=== PATIENT | female | born 1945 | race Caucasian/White ===

== ENCOUNTER 2019-05-04 19:20 | Emergency (ER) | payer MEDICARE, OTHER, SELFPAY ==
[2019-05-04 19:21] VITALS: BP 190/84; PULSE 80; RESP 16; TEMP 37.1; O2SAT 93; BMI 24.6
[2019-05-04] MEDS: HYDROcodone Bitartrate/Apap 5/325 Tablet PO (22:01)
--- NOTE | 2019-05-04 23:53 | ED.DEP ---
ED Disposition - Plan for ED Patient: Instructions: Nosebleed Prescriptions: Cephalexin [Keflex] 500 mg PO Q12 #14 capsule Referrals: Mynor Shaver MD [Primary Care Provider] - Robb Escobar MD [STAFF PHYSICIAN] -
--- NOTE | 2019-05-04 23:56 | ED.DCSUM_ITS ---
- ER Visit Summary Date of Service: 05/04/19 Chief Complaint: Nosebleed History of Present Illness: The patient is a 74 F presenting with nosebleed. She states this started approximately one hour prior to arrival. She had bleeding initially started from the right side of her nose and is now bleeding from both. She denies trauma. She is not on anticoagulants. Denies other complaints. Physical Examination: Vitals are stable. Blood pressure 190/84. Patient is afebrile. Alert no acute distress. HEENT exam bleeding bilateral nares Neck is supple. Lungs are clear and equal bilaterally. Heart is regular rate and rhythm. Extremities are unremarkable. Skin is warm and dry. No focal neurologic deficit. Remainder of exam is unremarkable. Emergency Department Course and Treatment: Direct pressure was applied. Patient continues to have bleeding. Thrombin spray was used and the bleeding did slow down. Discussed with Dr. Canchola. Her nose was packed with bilateral merocels. She was observed in the ED. The bleeding has now stopped. She is advised to follow-up with Dr. Canchola. She is given prescription for Keflex. Advised return to the ED for worsening complaints. Disposition: Discharge home Impression: Epistaxis, nasal packing This note was generated with [employer] dictation software. It may contain incorrect words, spelling, and punctuation that were not noted in review of the chart prior to signing ED Disposition - Plan for ED Patient: Instructions: Nosebleed Prescriptions: Cephalexin [Keflex] 500 mg PO Q12 #14 cap Prescription Printed Referrals: Robb Escobar MD [STAFF PHYSICIAN] - Mynor Shaver MD [Primary Care Provider] -
--- NOTE | 2019-05-05 00:07 | ED.RN ---
PT STATES SHE DOESN'T WANT TO TAKE ANTIBIOTIC TONIGHT D/T NOT EATING ALL DAY. RN OFFERED SNACK WITH PILL. PT STATES SHE WILL START TOMORROW WHEN SHE GETS PRESCRIPTION FILLED.
--- NOTE | 2019-05-05 06:15 | ED.RN ---
OPENED CHART PER REQUEST OF CAMILLE ESCALANTE TO CONFIRM THEIR RECORD
== END 2019-05-05 00:08 | disposition home or self-care (01) ==
PROVIDERS: Emergency Provider Emergency Medicine; Family Provider Family Medicine; PCP Family Medicine
DX: R04.0 Epistaxis (principal); K21.9 Gastro-esophageal reflux disease without esophagitis; E11.9 Type 2 diabetes mellitus without complications; I10 Essential (primary) hypertension; Z79.84 Long term (current) use of oral hypoglycemic drugs; Z79.899 Other long term (current) drug therapy
CPT/HCPCS: 30901; 99285

== ENCOUNTER 2023-10-22 11:46 | Inpatient (IN) | payer MEDICARE, SELFPAY ==
[2023-10-22] VITALS (14 sets, daily range): BP systolic 92–201; BP diastolic 45–80; PULSE 69–96; RESP 16–24; TEMP 36.4–36.8; O2SAT 88–100; BMI 28.3
--- NOTE | 2023-10-22 12:20 | EKG12_ITS ---
Test Reason : Blood Pressure : / mmHG Vent. Rate : 082 BPM Atrial Rate : 082 BPM P-R Int : 160 ms QRS Dur : 068 ms QT Int : 358 ms P-R-T Axes : 036 -30 071 degrees QTc Int : 418 ms Sinus rhythm with Premature supraventricular complexes Left axis deviation Abnormal ECG Confirmed by LEEROY CAGLE, RHONDA ([id number]), editor city [place] ([id number]) on 10/25/2023 6:50:21 AM Referred By: SRIRAM Confirmed By:RHONDA UMAÑA MD
--- NOTE | 2023-10-22 12:28 | EX.ED.DYSGE1 ---
HPI History of Present Illness Chief Complaint: Weakness Informant: patient Narrative Narrative: Patient presents via EMS secondary to inability to walk. She is a history of myasthenia gravis and has caretakers. She states since June she has had increasing weakness and had discussed with her primary care physician possible need for hospitalization and therapy. She has now been unable to walk since 10 October and this finally prompted her visit. [facility] Medical History (Updated 10/22/23 @ 17:[address] Vanessa Ramsey MD) Anxiety and depression Hx of gastroesophageal reflux (GERD) Fibromyalgia Diabetes mellitus Myasthenia gravis Hx pulmonary embolism Home Medications ?Medication ?Instructions ?Recorded ?Last Taken ?Type hydrocodone-acetaminophen 5-325mg 1 ea PO PRN PRN Pain Or Fever 05/04/19 Unknown History 5mg-325mg lisinopril 20 mg tablet 20 mg PO DAILY 05/04/19 Unknown History loratadine 5 mg-pseudoephedrine ER 1 ea PO BID 05/04/19 Unknown History 120 mg tablet,extended release,12hr montelukast 10 mg tablet 10 mg PO DAILY 05/04/19 Unknown History sertraline 100 mg tablet 100 mg PO DAILY 05/04/19 Unknown History albuterol sulfate 90 mcg/actuation 2 puff inhalation Q4H PRN 10/22/23 Unknown History aerosol inhaler budesonide-formoterol HFA 80 2 puff inhalation BID 10/22/23 Unknown History mcg-4.5 mcg/actuation aerosol inhaler estradiol 0.5 mg tablet 0.5 mg PO DAILY 10/22/23 Unknown History omeprazole 20 mg capsule,delayed 20 mg PO BID 10/22/23 Unknown History release pyridostigmine bromide 60 mg tablet 60 mg PO TID PRN 10/22/23 Unknown History sumatriptan succinate 100 mg tablet 100 mg PO PRN 10/22/23 Unknown History Allergy/AdvReac Type Severity Reaction Status Date / Time Beta-Blockers Allergy Severe Other Verified 10/22/23 12:02 (Beta-Adrenergic Bloc Horse/Equine Containing AdvReac NEEDS Verified 10/22/23 12:00 Products FOLLOW-UP Sugars, Metabolically Active AdvReac Unknown Verified 10/22/23 12:00 Surgical History Hx of thymectomy Social History Smoking Status: Former smoker ROS ROS ED Constitutional Constitutional ED: Denies chills or fever(s) Eyes Eyes: Denies discharge from eye(s) ENT ENT ED: Denies discharge from eye(s), rhinorrhea or sore throat Cardiovascular Cardiovascular: Denies chest pain or palpitations Respiratory/Chest Respiratory/Chest: Denies cough or dyspnea Gastrointestinal Gastrointestinal: Reports diarrhea; Denies abdominal pain, nausea or vomiting Genitourinary Genitourinary ED: Denies dysuria Musculoskeletal Musculoskeletal: Denies back pain or extremity pain Integumentary Denies Abrasions or rash Neurologic Neurologic: Reports weakness; Denies headache(s) Psychiatric Psychiatric: Denies anxiety or depression Allergic/Immunologic Allergic/Immunologic ED: Denies lip swelling or urticaria EXAM Physical Exam Const Vital Signs: 10/22/23 11:47 10/22/23 12:02 10/22/23 13:00 Temperature 98.0 F Temperature Source Oral Pulse Rate 89 Respiratory Rate 16 Respiratory Effort Normal Non-Labored Respiratory Pattern Normal Blood Pressure 201/78 H 198/77 H Blood Pressure Mean 119 117 Pulse Ox 97 Oxygen Delivery Method Room Air 10/22/23 13:00 10/22/23 13:21 10/22/23 15:00 Temperature Temperature Source Pulse Rate 81 72 Respiratory Rate 18 17 Respiratory Effort Respiratory Pattern Blood Pressure 193/67 H 169/53 H 127/54 H Blood Pressure Mean 109 91 78 Pulse Ox 96 97 Oxygen Delivery Method Room Air Room Air Positive well nourished and well developed General Appearance ED: well developed HEENT Reports moist mucous membranes Eyes EOMs intact bilaterally Chest Wall inspection of chest normal and palpation of chest normal Resp normal respiratory effort and clear to auscultation bilaterally Cardio regular rate and regular rhythm GI non-tender Palpation: soft Neuro oriented x3 Neuro Narrative: Bilateral lower extremity weakness. Is able to wiggle toes and rotate her legs [id number]. Normal sensation noted. Psych mental status grossly normal Skin no rashes or lesions noted MDM MDM MDM Narrative Medical decision making narrative: Patient was on manager telecom. Noted to be significantly hypertensive in the emergency room. I did review her prior records from [facility] and her blood pressure is usually around 130/80. She states she did take her lisinopril this morning. We will check blood pressures in each arm. If remains elevated she will be given a dose of hydralazine. Labwork obtained to evaluate for leukocytosis, anemia, and electrolyte derangement. Urinalysis obtained to evaluate for infection/hematuria. History & Record Review Discussion w/independent historian: Patient and Friend Lab Data Attestation: I reviewed the patient's lab results. Labs: Laboratory Results - last 24 hr 10/22/23 10/22/23 13:00 15:57 WBC 15.6 H RBC 4.72 Hgb 13.1 Hct 41.6 MCV 88.1 MCH 27.8 MCHC 31.5 L RDW Std Deviation 44.8 H RDW Coeff of Meir 13.8 Plt Count 400 MPV 10.7 Immature Gran % (Auto) 0.300 Neut % (Auto) 81.7 H Lymph % (Auto) 10.2 L Garza % (Auto) 6.1 Eos % (Auto) 1.3 Baso % (Auto) 0.4 Absolute Neuts (auto) 12.8 H Absolute Lymphs (auto) 1.59 Nucleated RBC % 0 Sodium 138 Potassium 3.8 Chloride 107 Carbon Dioxide 26.0 Anion Gap 5 BUN 21 H Creatinine 0.71 Estim Creat Clear Calc 57.11 Est GFR (MDRD) Af Amer 103 Est GFR (MDRD) Non-Af 85 BUN/Creatinine Ratio 29.6 H Glucose 117 H Calcium 9.8 Urine Color Yellow Urine Clarity Clear Urine pH 6.5 Ur Specific [place] 1.010 Urine Protein Negative Urine Glucose (UA) Normal Urine Ketones 5 H Urine Occult Blood 150 H Urine Nitrite Positive H Urine Bilirubin Negative Urine Urobilinogen 4 H Ur Leukocyte Esterase 100 H Urine RBC 10-25 SEEN Urine WBC 5-10 SEEN Ur Squamous Epith Cells 0-5 SEEN Urine Bacteria 2+ Urine Mucus 0 SEEN Treatment and Re-Evaluation :: CBC was elevated white count at 15.6 with 81% neutrophils. Hemoglobin is 13.1. Chemistry studies unremarkable with normal renal function. Glucose is 117. Urinalysis was obtained via straight cath. She has 2+ bacteria, 10-25 RBCs, 5-10 white cells, and positive nitrites. This will be sent for culture and patient be given a dose of Rocephin here. Patient's blood pressure was checked in both arms and significantly elevated. She received 10 mg of IV hydralazine. Repeat blood pressures are in the 120s systolic. I will speak with hospitalist regarding admission as patient is not able to walk and assist in her care. She does understand that she will require placement for therapy and strengthening. Discharge Plan Triage Chief Complaint: Weakness ED Provider: Vanessa Ramsey Dx/Rx/DC Orders Clinical Impression: UTI (urinary tract infection), Weakness, Unable to ambulate Prescriptions: No Action loratadine-pseudoephedrine 1 EACH tablet extended release 12 hr 1 ea PO BID hydrocodone-acetaminophen 1 EACH tablet 1 ea PO PRN PRN (Reason: Pain Or Fever) lisinopril 20 MG tablet 20 mg PO DAILY sertraline 100 MG tablet 100 mg PO DAILY montelukast 10 MG tablet 10 mg PO DAILY albuterol sulfate 90 mcg/actuation HFA aerosol inhaler 2 puff inhalation Q4H PRN pyridostigmine bromide 60 mg tablet 60 mg PO TID PRN omeprazole 20 mg capsule,delayed release(DR/EC) 20 mg PO BID estradiol 0.5 mg tablet 0.5 mg PO DAILY budesonide-formoterol 80-4.5 mcg/actuation HFA aerosol inhaler 2 puff INHALATION BID sumatriptan succinate 100 mg tablet 100 mg PO PRN Primary Care Provider: Beena Whitfield Referrals: Beena Whitfield, PA [Primary Care Provider] - Print Language: Jordanian Disposition Disposition: Acute Care Hospital [facility]
[2023-10-22 13:09] LABS: Absolute Lymphocyte Count 1.59 X10^3/uL (0.83-4.51); Absolute Neutrophil Count 12.8 X10^3/uL (2.0-7.7); Basophil# 0.07 X10^3/uL; Basophil% 0.4 % (0-1); Eosinophil# 0.21 X10^3/uL; Eosinophils% 1.3 % (0-5); Hematocrit 41.6 % (37-47); Hemoglobin 13.1 g/dL (12.0-15.0); Lymphocyte # 1.59 X10^3/ul (0.83-4.51); Lymphocyte % 10.2 % (19-41); Mean Corp Hgb Conc 31.5 g/dL (32-36); Mean Corpuscular Hgb 27.8 pg (27.0-32.0); Mean Corpuscular Volume 88.1 fL (81-99); Mean Platelet Vol. 10.7 fl (6.2-12.0); Monocyte# 0.95 X10^3/uL; Monocyte% 6.1 % (0-10); NRBC Flagged by Analyzer 0 % (0-5); Neutrophil # 12.75 X10^3/uL (2.7-7.7); Neutrophil % 81.7 % (47-70); Platelet Count 400 K/mm3 (150-450); RBC Distribution Width CV 13.8 % (11.6-14.6); RBC Distribution Width SD 44.8 fl (35.1-43.9); Red Blood Count 4.72 M/mm3 (4.2-5.4); White Blood Count 15.6 K/mm3 (4.4-11.0)
[2023-10-22] MEDS: hydrALAZINE 20 MG/ML Vial 10 MG IV (13:10)
[2023-10-22 13:24] LABS: Anion Gap 5 (5-15); BUN 21 mg/dL (7-18); BUN/Creat Ratio 29.6 RATIO (10-20); Calcium,Total 9.8 mg/dL (8.5-10.1); Chloride 107 mmol/L (98-107); Creatinine, Serum 0.71 mg/dL (0.55-1.02); EST Glomerular Filtration Rate 85 mL/min (>60); Est Glom Filt Rate - Afr Amer 103 mL/min (>60); Estimated Creatinine Clearance 57.11 ml/min; Glucose 117 mg/dL (74-106); Potassium 3.8 mmol/L (3.5-5.1); Sodium Level 138 mmol/L (136-145)
[2023-10-22 16:04] LABS: Mucous, Urine 0 SEEN /hpf (<or=2+)
[2023-10-22 16:18] LABS: Color, Urine Yellow (Yellow); Glucose, Dipstick Normal (Normal); Ketone-Dipstick 5 mg/dl (Negative); Leukocyte Esterase-Dipstick 100 /ul (Negative); Nitrite-Dipstick Positive (Negative); Occult Blood-Urine 150 /ul (Negative); Protein-Dipstick Negative (Negative); Urine Bilirubin Dipstick Negative (Negative); Urine Clarity Clear (Clear); Urine Urobilinogen 4 mg/dl (Normal); Urine pH 6.5 (5.0 - 8.0)
[2023-10-22 17:00] LABS: Red Blood Cells-Urine 10-25 SEEN /hpf (0-5); Squamous Epithelial Cells - UA 0-5 SEEN /hpf (5-10); White Blood Cells 5-10 SEEN /hpf (0-5)
[2023-10-22 17:01] LABS: Bacteria 2+ /hpf (None Seen)
--- NOTE | 2023-10-22 17:14 | HP.PCM.HOS_ITS ---
HPI - General General Date of Admission: 10/22/23 Date of Service: 10/22/23 Chief Complaint: weakness HPI Narrative SADE RUSH, is a 78 F with a significant history of myasthenia gravis and hypertension who presents to the emergency department with persistent weakness that has had some improvement. At the emergency department patient was found to have abnormal urinalysis. However patient denies any urinary symptoms. Typically patient is incontinent of stool and was straight cathed at the emergency department for urine sample. [facility] Medical History Anxiety and depression Hx of gastroesophageal reflux (GERD) Fibromyalgia Diabetes mellitus Myasthenia gravis Hx pulmonary embolism Home Medications ?Medication ?Instructions ?Recorded ?Last Taken ?Type hydrocodone-acetaminophen 5-325mg 1 ea PO PRN PRN Pain Or Fever 05/04/19 Unknown History 5mg-325mg lisinopril 20 mg tablet 20 mg PO DAILY 05/04/19 Unknown History loratadine 5 mg-pseudoephedrine ER 1 ea PO BID 05/04/19 Unknown History 120 mg tablet,extended release,12hr montelukast 10 mg tablet 10 mg PO DAILY 05/04/19 Unknown History sertraline 100 mg tablet 100 mg PO DAILY 05/04/19 Unknown History albuterol sulfate 90 mcg/actuation 2 puff inhalation Q4H PRN 10/22/23 Unknown History aerosol inhaler budesonide-formoterol HFA 80 2 puff inhalation BID 10/22/23 Unknown History mcg-4.5 mcg/actuation aerosol inhaler estradiol 0.5 mg tablet 0.5 mg PO DAILY 10/22/23 Unknown History omeprazole 20 mg capsule,delayed 20 mg PO BID 10/22/23 Unknown History release pyridostigmine bromide 60 mg tablet 60 mg PO TID PRN 10/22/23 Unknown History sumatriptan succinate 100 mg tablet 100 mg PO PRN 10/22/23 Unknown History Allergy/AdvReac Type Severity Reaction Status Date / Time Beta-Blockers Allergy Severe Other Verified 10/22/23 12:02 (Beta-Adrenergic Bloc Horse/Equine Containing AdvReac NEEDS Verified 10/22/23 12:00 Products FOLLOW-UP Sugars, Metabolically Active AdvReac Unknown Verified 10/22/23 12:00 Family History (Updated 10/22/23 @ 18:[address] Mariano Glover MD) Other Lupus (systemic lupus erythematosus) Scleroderma Surgical History Hx of thymectomy Surgical History no surgical history no surgical history Social History Smoking Status: Former smoker ROS ROS Narrative Pertinent positives and pertinent negatives as noted in HPI. All other systems were reviewed and are negative Vital Signs Vital Signs Vital Signs: 10/22/23 11:47 10/22/23 12:02 10/22/23 13:00 Temperature 98.0 F Temperature Source Oral Pulse Rate 89 Respiratory Rate 16 Respiratory Effort Normal Non-Labored Respiratory Pattern Normal Blood Pressure 201/78 H 198/77 H Blood Pressure Mean 119 117 Pulse Ox 97 Oxygen Delivery Method Room Air 10/22/23 13:00 10/22/23 13:21 10/22/23 15:00 Temperature Temperature Source Pulse Rate 81 72 Respiratory Rate 18 17 Respiratory Effort Respiratory Pattern Blood Pressure 193/67 H 169/53 H 127/54 H Blood Pressure Mean 109 91 78 Pulse Ox 96 97 Oxygen Delivery Method Room Air Room Air Weight Weight: 72.575 kg Body Mass Index (BMI) 28.3 Physical Exam Narrative Physical exam: General: Well-nourished, well-developed. Head: Normocephalic, atraumatic, no tenderness Eyes: Vision is grossly intact. EOMI ENT, no trauma, moist mucous membranes, no rhinorrhea Neck: Nontender, No thyromegaly. CVS: Regular rate and rhythm. S1-S2 present. No murmur, gallop or rub. Respiratory : clear to auscultation bilaterally, chest wall nontender Abdomen: Soft, nontender, nondistended, normal bowel sounds, no masses : Deferred Back: Nontender, no CVA tenderness, no midline spinal tenderness, deformities, step-offs Extremities: Flexion of right upper extremity decreased compared to left. Strength 5 out of 5 in all 4 extremities. Skin: Normal color, no trauma, abrasions Neuro: Alert, oriented, cranial nerves II through XII grossly intact. Psychiatry: Normal mood. Normal affect. Not depressed. Not anxious. Results Lab / Micro Data 10/22/23 13:00 10/22/23 13:00 Labs: Laboratory Results - last 24 hr 10/22/23 13:00: WBC 15.6 H, RBC 4.72, Hgb 13.1, Hct 41.6, MCV 88.1, MCH 27.8, M CHC 31.5 L, RDW Std Deviation 44.8 H, RDW Coeff of Meir 13.8, Plt Count 400, MPV 10.7, Immature Gran % (Auto) 0.300, Neut % (Auto) 81.7 H, Lymph % (Auto) 10.2 L, Bremer % (Auto) 6.1, Eos % (Auto) 1.3, Baso % (Auto) 0.4, Absolute Neuts (auto) 12.8 H, Absolute Lymphs (auto) 1.59, Nucleated RBC % 0, Sodium 138, Potassium 3.8, Chloride 107, Carbon Dioxide 26.0, Anion Gap 5, BUN 21 H, Creatinine 0.71, Estim Creat Clear Calc 57.11, Est GFR (MDRD) Af Amer 103, Est GFR (MDRD) Non-Af 85, BUN/Creatinine Ratio 29.6 H, Glucose 117 H, Calcium 9.8 10/22/23 15:57: Urine Color Yellow, Urine Clarity Clear, Urine pH 6.5, Ur Specific Dixon 1.010, Urine Protein Negative, Urine Glucose (UA) Normal, Urine Ketones 5 H, Urine Occult Blood 150 H, Urine Nitrite Positive H, Urine Bilirubin Negative, Urine Urobilinogen 4 H, Ur Leukocyte Esterase 100 H, Urine RBC 10-25 SEEN, Urine WBC 5-10 SEEN, Ur Squamous Epith Cells 0-5 SEEN, Urine Bacteria 2+, Urine Mucus 0 SEEN Assessment & Plan Assessment/Plan (1) UTI (urinary tract infection): QUALIFIERS: Hematuria presence: without hematuria Urinary tract infection type: acute cystitis Qualified Code(s): N30.00 - Acute cystitis without hematuria (2) Weakness: (3) Hypertensive urgency: (4) History of myasthenia gravis: PLAN: Plan Urinary tract infection Discussed case with emergency department physician who recommended admission. Urinalysis reviewed, abnormal. Patient was started on Rocephin in the emergency department. Rocephin will be continued. Hypertensive urgency EKG reviewed showed sinus rhythm with supraventricular complexes. On presentation systolic blood pressure was more than 180. Patient was given hydralazine IV in the emergency department with noticeable improvement in blood pressures. Continue home lisinopril. PRN Hydralazine ordered. Trend blood pressures. History of myasthenia gravis Stable Mestinon continued. Weakness Likely secondary to myasthenia gravis and UTI Treatment as above PT and OT consult. Case management consult. DVT prophylaxis: Subcutaneous Lovenox ordered. Time spent in the patient's overall evaluation,decision-making process, review of diagnostic data, adjustment of management, discussion with other providers, nursing and ancillary staff involved in patient's care documentation, [ ] minutes. Advance care planning: Discussed with patient and family advanced directives as well as CODE STATUS. Explained various CODE STATUS: FULL CODE, DNR CCA, DNR CCA with no intubation, and DNR CC- and what each meant. Patient elected to be a full code with CPR and intubation if warranted. Order was placed. Time spent on discussion 16 minutes. Surrogate decision maker is her caregiver, Kt Arora; and son, Wali Rush Charges/Coding Visit Charges Inpatient E&M: 78380 Init Hosp L3 Procedures Hospitalists Procedures: 41967 Advncd Care Plan 30 Min
[2023-10-22] MEDS: Ceftriaxone 1 GM/50 ML BAG IV (17:24)
[2023-10-22] MEDS: Pantoprazole Sodium 20 MG Tablet PO (20:32)
[2023-10-22] MEDS: 0.9% Saline Lock 10 ML Syringe IV (20:34)
[2023-10-22] MEDS: Pyridostigmine Bromide 60 MG Tablet PO (22:51)
[2023-10-22] MEDS: Menthol/Lanolin/Calamine/Znox 113 GM Tube 1 APPLIC TOPICAL (22:52)
[2023-10-22] MEDS: Nystatin Powder 15gm Bottle 1 APPLIC TOPICAL (22:52)
[2023-10-22 23:13] LABS: Bedside Glucose 113 mg/dL (74-106)
[2023-10-22] MEDS: Budesonide Respules 0.5 MG/2 ML AMPUL.NEB. INHALATION (23:35)
[2023-10-22] MEDS: Albuterol 2.5 MG/3 ML VIAL.NEB. INHALATION (23:35)
[2023-10-23] VITALS (8 sets, daily range): BP systolic 118–162; BP diastolic 59–80; PULSE 78–98; RESP 16–20; TEMP 36.4–37.1; O2SAT 95–100
[2023-10-23] MEDS: HYDROcodone Bitartrate/Apap 5/325 Tablet PO (04:53)
[2023-10-23] MEDS: Pyridostigmine Bromide 60 MG Tablet PO ×3 (05:00→21:57)
[2023-10-23] MEDS: hydrALAZINE 20 MG/ML Vial 10 MG IV (05:12)
[2023-10-23 05:39] LABS: Absolute Lymphocyte Count 1.81 X10^3/uL (0.83-4.51); Absolute Neutrophil Count 8.5 X10^3/uL (2.0-7.7); Basophil# 0.06 X10^3/uL; Basophil% 0.5 % (0-1); Eosinophil# 0.34 X10^3/uL; Eosinophils% 2.9 % (0-5); Hematocrit 40.7 % (37-47); Hemoglobin 12.7 g/dL (12.0-15.0); Lymphocyte # 1.81 X10^3/ul (0.83-4.51); Lymphocyte % 15.6 % (19-41); Mean Corp Hgb Conc 31.2 g/dL (32-36); Mean Corpuscular Hgb 27.5 pg (27.0-32.0); Mean Corpuscular Volume 88.3 fL (81-99); Mean Platelet Vol. 10.9 fl (6.2-12.0); Monocyte% 7.8 % (0-10); NRBC Flagged by Analyzer 0 % (0-5); Neutrophil # 8.46 X10^3/uL (2.7-7.7); Neutrophil % 72.9 % (47-70); Platelet Count 423 K/mm3 (150-450); RBC Distribution Width CV 14.2 % (11.6-14.6); RBC Distribution Width SD 46.2 fl (35.1-43.9); Red Blood Count 4.61 M/mm3 (4.2-5.4); White Blood Count 11.6 K/mm3 (4.4-11.0)
[2023-10-23 05:58] LABS: Anion Gap 8 (5-15); BUN 22 mg/dL (7-18); BUN/Creat Ratio 31.2 RATIO (10-20); Calcium,Total 9.5 mg/dL (8.5-10.1); Chloride 108 mmol/L (98-107); EST Glomerular Filtration Rate 86 mL/min (>60); Est Glom Filt Rate - Afr Amer 104 mL/min (>60); Estimated Creatinine Clearance 57.04 ml/min; Glucose 90 mg/dL (74-106); Potassium 3.9 mmol/L (3.5-5.1); Sodium Level 139 mmol/L (136-145)
[2023-10-23] MEDS: Budesonide Respules 0.5 MG/2 ML AMPUL.NEB. INHALATION ×2 (06:53→19:09)
[2023-10-23] MEDS: Albuterol 2.5 MG/3 ML VIAL.NEB. INHALATION ×3 (06:53→19:09)
--- NOTE | 2023-10-23 08:30 | CASEMGMT ---
ARMANDO FISHER Assessment: Face to Face with pt for initial transition planning/care coordination assessment. ARMANDO FISHER introduced self and role at [facility], pt voices understanding and consents to assessment. Pt is A&O x4 and answers all questions appropriately at this time. Pt is lying in bed, listening to a podcast, and eating her breakfast. Care providers, pharmacy, and demographics verified/updated. Admitting Dx: Ui PCP:DAT Whitfield Specialists: None Preferred Pharmacy: [facility] Insurance: [facility], though MMO is listed Prescription Benefit: yes LNOK: Son Wali Rush who is a professor at [employer]. Pt did not provide his contact information. Pt reports that her 2 emergency contacts Kt and Britt are the friends that she has been staying with and who are taking care of her. Pt reports that her son does not like them, however, he did not offer to take care of her either. Living Arrangements: Pt lives with her friends Kt and Britt. She reports Britt is a RN in [place]. Their home [facility]. Pt reports that at baseline she is able to ambulate with a walker, and requires assist with her ADLs. Pt cannot complete IADLs. Pt reports at baseline she takes her meals in bed while lying down as she has limited bed mobility without assistance. Pt reports she takes bed bath with wipes and her friends assist her with this. Pt reports she was able to go to Dr gandara prior to Jun, however, in Jun she was too weak and they had to rent a w/c. She reports approximately the last 2 weeks she has been essentially bed bound and unable to ambulate much with her walker. Pt reports she asked her friends to purchase a memory foam dog bed for her to place over her current mattress. She wanted this to help prevent pain while lying and skin breakdown, however she reports it was not effective. Pt also reports she asked her friends to purchase large/xlarge dog training pads to place over her bed, as there are times her diaper will leak and she did not want it to leak onto her mattress. Pt reports her medication for her myasthenia gravis can sometimes metal bonding helper her diarrhea. She reports that she has had diarrhea recently and believes this is what caused her UTI and is also what prompted her ED visit. Pt reports her friends said we shouldn't be doing this in regards to cleaning her up after episodes of diarrhea. It is important to note that per the EMS report pts room had trash and dirty dishes present, as well as fecal matter noted on her bed. Transportation: Pt is dependent in transportation, and has not left the home recently due to inability to ambulate and get in/out of a vehicle. DME: Walker, shower chair HHC/SNF: None Advised pt to ask CM if any further question/concerns/needs arise, voices understanding. Pt Goal: SNF to get stronger vs GROUP HOME. Pt reports she spoke with her friends about going to a halfway to get stronger. She reports that Britt used to work at one and she planned to discuss with her recommendations, however, she is currently out of town and wont be back until tomorrow. Pt reports she is hopeful to live at [facility] in the future. She is uncertain if she would be able to with her current functional level. Pt is aware that we are awaiting PT/OT girish. Pt reports she does have an income of $2000 per month. Plan: SNF vs GROUP HOME Precious CREWS, RN, CCM
--- NOTE | 2023-10-23 08:50 | CASEMGMT ---
RN CM in to discuss JOSE form with patient. RN CM explained JOSE form, patient voiced understanding. Pt signed form and filed in chart. Pt provided with a copy of signed JOSE form. Patient had no further questions or concerns at this time. Precious Ty MSN, RN, CCM
[2023-10-23 09:40] LABS: Hemoglobin A1c 5.7 % (3.8-5.6)
--- NOTE | 2023-10-23 09:55 | PN.HOSP_ITS ---
Reason for Visit Reason for Visit: Diagnoses Hypertensive urgency (10/22/23) Acute cystitis without hematuria (10/22/23) Weakness (10/22/23) Personal history of other diseases of the nervous system and sense organs (10/22/23) Subjective Subjective Patient admitted yesterday afternoon for worsening weakness and difficulty with ambulation in setting of known myasthenia gravis. No acute events overnight. Saw patient at bedside this morning. Patient was laying comfortably in bed, conversing normally, in no acute distress. States that she does have a mild headache this morning; usually takes sumatriptan at home as needed to help with this but this was not ordered for her. She states the [place] was only somewhat helpful for the headache. She otherwise continues to feel weak but denies any fevers or chills or any other new concerns this morning. Objective Data Objective Data Vital Signs: Vital Signs Temp Pulse Resp BP Pulse Ox O2 Del Method O2 Flow Rate 97.5 F L 88 16 162/80 H 96 Room Air 2 10/23/23 05:06 10/23/23 06:54 10/23/23 06:54 10/23/23 05:12 10/23/23 06:54 10/23/23 06:54 10/22/23 19:13 Oxygen Flow Rate (L/min) 2 Oxygen Delivery Method Room Air Weight: 72.4 kg Body Mass Index (BMI) 28.3 Intake & Output: Intake and Output for Last 24 Hours 10/21/23 10/22/23 10/23/23 23:59 23:59 23:59 Intake Total 50 / 250 200 / 200 Output Total 600 / 600 Balance 50 / 250 -400 / -400 Lab / Micro Data 10/23/23 05:04 10/23/23 05:04 Labs: Laboratory Results - last 24 hr 10/22/23 13:00: WBC 15.6 H, RBC 4.72, Hgb 13.1, Hct 41.6, MCV 88.1, MCH 27.8, M CHC 31.5 L, RDW Std Deviation 44.8 H, RDW Coeff of Meir 13.8, Plt Count 400, MPV 10.7, Immature Gran % (Auto) 0.300, Neut % (Auto) 81.7 H, Lymph % (Auto) 10.2 L, [place] % (Auto) 6.1, Eos % (Auto) 1.3, Baso % (Auto) 0.4, Absolute Neuts (auto) 12.8 H, Absolute Lymphs (auto) 1.59, Nucleated RBC % 0, Sodium 138, Potassium 3.8, Chloride 107, Carbon Dioxide 26.0, Anion Gap 5, BUN 21 H, Creatinine 0.71, Estim Creat Clear Calc 57.11, Est GFR (MDRD) Af Amer 103, Est GFR (MDRD) Non-Af 85, BUN/Creatinine Ratio 29.6 H, Glucose 117 H, Calcium 9.8 10/22/23 15:57: Urine Color Yellow, Urine Clarity Clear, Urine pH 6.5, Ur Specific [place] 1.010, Urine Protein Negative, Urine Glucose (UA) Normal, Urine Ketones 5 H, Urine Occult Blood 150 H, Urine Nitrite Positive H, Urine Bilirubin Negative, Urine Urobilinogen 4 H, Ur Leukocyte Esterase 100 H, Urine RBC 10-25 SEEN, Urine WBC 5-10 SEEN, Ur Squamous Epith Cells 0-5 SEEN, Urine Bacteria 2+, Urine Mucus 0 SEEN 10/22/23 20:58: POC Glucose 113 H 10/23/23 05:04: WBC 11.6 H, RBC 4.61, Hgb 12.7, Hct 40.7, MCV 88.3, MCH 27.5, M CHC 31.2 L, RDW Std Deviation 46.2 H, RDW Coeff of Meir 14.2, Plt Count 423, MPV 10.9, Immature Gran % (Auto) 0.300, Neut % (Auto) 72.9 H, Lymph % (Auto) 15.6 L, [place] % (Auto) 7.8, Eos % (Auto) 2.9, Baso % (Auto) 0.5, Absolute Neuts (auto) 8.5 H, Absolute Lymphs (auto) 1.81, Nucleated RBC % 0, Sodium 139, Potassium 3.9, Chloride 108 H, Carbon Dioxide 23.0, Anion Gap 8, BUN 22 H, Creatinine 0.70, Estim Creat Clear Calc 57.04, Est GFR (MDRD) Af Amer 104, Est GFR (MDRD) Non-Af 86, BUN/Creatinine Ratio 31.2 H, Glucose 90, Hemoglobin A1c 5.7 H, Calcium 9.5 Micro: Microbiology 10/22/23 15:57 Urine, Catheterized Urine Culture - Preliminary GNR lactose afternoon babysitter Physical Exam Const alert, oriented x3, no apparent distress and average body habitus Constitutional Narrative: Elderly female, chronically ill-appearing, otherwise laying comfortably in bed, conversing normally, in no acute distress. General Appearance: cooperative and comfortable HEENT normocephalic, head/scalp atraumatic, hearing grossly normal bilaterally, nasal mucous membranes and turbinates normal and moist oral mucous membranes Eyes PERRL, EOMs intact bilaterally and conjunctivae normal Neck full ROM Chest inspection of chest normal Resp normal respiratory effort, normal air movement, no use of accessory muscles and clear to auscultation bilaterally Cardio regular rate, regular rhythm, no murmurs and peripheral pulses 2+ throughout GI normal to inspection, nondistended, normoactive bowel sounds, soft to palpation, non-tender and non-distended Back/Spine normal ROM Extremity normal to inspection and no pedal edema Skin no rashes or lesions noted Neuro CN's II-XII intact bilaterally and moves all extremities Neuro Narrative: Flexion of right upper extremity decreased compared to left. Generally weak in upper and lower extremities bilaterally. Sensorium / Orientation: awake and alert Speech: speech normal Psych mental status grossly normal Mood & Affect: anxious Assessment & Plan Assessment/Plan (1) History of myasthenia gravis: (2) Hypertensive urgency: (3) Weakness: (4) UTI (urinary tract infection): QUALIFIERS: Urinary tract infection type: acute cystitis H ematuria presence: without hematuria Qualified Code(s): N30.00 - Acute cystitis without hematuria PLAN: Plan Patient is a 78-year-old female who presented [facility] ED on 10/22/2023 with worsening weakness and difficulty with ambulation. 1. Acute on chronic debility, history of myasthenia gravis ? PT/OT/case management following. Has full-time caretakers at home but was previously able to walk and since 10/10 she has not not been able to walk at all. Unclear if acute cystitis may be playing a role in this, treating as below. Very low concern for acute MG crisis. Continue home pyridostigmine 60 mg 3 times daily. Planning for SNF on discharge. 2. Hypertensive urgency, improved; history of hypertension ? Home regimen of only lisinopril 20 mg daily. Hypertensive urgency present in ED with systolic blood pressures over 180 and headache noted. Notably with no endorgan dysfunction. Unclear etiology, patient reported she did take her home lisinopril on morning of admission. Given 1 dose of IV hydralazine in the ED with good improvement in blood pressure and some improvement in headache. Continue home lisinopril 20 mg daily with IV hydralazine as needed, monitor. 3. Acute cystitis ? UA on admit with positive nitrites, 100 leukocyte esterase, 2+ bacteria. Urine culture prelim 80-100K GNR lactose afternoon babysitter. No prior urine cultures available. No systemic signs of infection. Continue ceftriaxone that was started on admission, follow up final urine culture results. Chronic medical conditions: ? Chronic pain: Stable. Continue home [place] 5-325 mg every 6 hours as needed. ? Migraines without aura: Continue home sumatriptan 100 mg daily as needed. ? Allergies: Continue home loratadine and montelukast. ? GERD: Continue home PPI. ? Anxiety/depression: Stable. Continue home sertraline. ? COPD not on home O2: Stable on room air, not in acute exacerbation. Continue home inhalers. DVT prophylaxis: Lovenox CODE STATUS: Full code, verified Expected disposition: SNF, 1 to 2 days Total clinical time spent by myself addressing the patient's medical issues, reviewing all the data, and collaborating with patient's care team: 35 minutes. Charges/Coding Visit Charges Inpatient E&M: 23743 Subs Hosp L2
--- NOTE | 2023-10-23 09:56 | CASEMGMT ---
Patient had an SDOH for concerns with living situation. SW met with patient. Introduced self and role at [facility]. Patient stated she is going to need to go to a long term to get stronger. Other than that patient has no concerns with her living situation. Patient stated the couple that helps take care of her is wonderful. Xuan Grayson PIPE MANUFACTURE SUPERVISOR DEON
--- NOTE | 2023-10-23 09:59 | CASEMGMT ---
SW met with patient. Introduced self and role at [facility]. Patient will need SNF placement pending therapy evals. Patient's insurance is listed as MMO then Medicare. The only time this would be accurate is if patient were still working and patient is not. Patient was not sure if she had an MMO advantage plan. Patient does not have her insurance cards. Kt the gentleman she stays with has her cards and will be at [facility] Wednesday. Patient said Britt the lady she lives with is an RN at [facility]. Britt used to work at one of the local nursing homes, but patient cannot remember which one. Kt and Britt have been on vacation for a couple of weeks. Patient was trying to see if she could get somebody to come into the home to help her with things while Kt and Britt were gone, but this did not work out. JUAN told patient a SW will follow up with her on Wednesday once her insurance is confirmed and then an appropriate list can be given. Xuan Grayson [employer]ESS TENDER [employer]NADE DEON
[2023-10-23] MEDS: Sertraline 100 MG Tablet PO (10:53)
[2023-10-23] MEDS: Ceftriaxone 1 GM/50 ML BAG IV (10:53)
[2023-10-23] MEDS: Lisinopril 20 MG Tablet PO (10:54)
[2023-10-23] MEDS: Pantoprazole Sodium 20 MG Tablet PO ×2 (10:54→21:58)
[2023-10-23] MEDS: Enoxaparin 40 MG/0.4 ML Syringe SC (10:54)
[2023-10-23] MEDS: Montelukast 10 MG Tablet PO (10:54)
[2023-10-23] MEDS: Ondansetron 4 MG/2 ML Vial IV (10:58)
[2023-10-23] MEDS: Rizatriptan Benzoate 10 MG Tablet PO (10:59)
[2023-10-23] MEDS: Nystatin Powder 15gm Bottle 1 APPLIC TOPICAL ×2 (11:02→21:56)
[2023-10-23] MEDS: Loratadine 10 MG Tablet PO (11:02)
[2023-10-23] MEDS: Menthol/Lanolin/Calamine/Znox 113 GM Tube 1 APPLIC TOPICAL ×2 (11:03→21:55)
[2023-10-23] MEDS: Estradiol 0.5 MG Tablet PO (11:03)
[2023-10-23 17:55] LABS: Bedside Glucose 231 mg/dL (74-106)
[2023-10-23] MEDS: 0.9% Saline Lock 10 ML Syringe IV (21:56)
[2023-10-23 22:19] LABS: Bedside Glucose 145 mg/dL (74-106)
[2023-10-24] VITALS (8 sets, daily range): BP systolic 144–169; BP diastolic 52–71; PULSE 80–90; RESP 16–20; TEMP 36.8–37; O2SAT 95–98
[2023-10-24] MEDS: Pyridostigmine Bromide 60 MG Tablet PO ×3 (05:34→20:28)
[2023-10-24] MEDS: hydrALAZINE 20 MG/ML Vial 10 MG IV (05:40)
[2023-10-24] MEDS: 0.9% Saline Lock 10 ML Syringe IV (05:41)
[2023-10-24] MEDS: Budesonide Respules 0.5 MG/2 ML AMPUL.NEB. INHALATION ×2 (07:06→19:12)
[2023-10-24] MEDS: Albuterol 2.5 MG/3 ML VIAL.NEB. INHALATION ×3 (07:08→19:11)
[2023-10-24] MEDS: Pantoprazole Sodium 20 MG Tablet PO ×2 (10:54→20:29)
[2023-10-24] MEDS: Nystatin Powder 15gm Bottle 1 APPLIC TOPICAL ×2 (10:54→20:28)
[2023-10-24] MEDS: Enoxaparin 40 MG/0.4 ML Syringe SC (10:55)
[2023-10-24] MEDS: Sertraline 100 MG Tablet PO (10:55)
[2023-10-24] MEDS: Montelukast 10 MG Tablet PO (10:55)
[2023-10-24] MEDS: Lisinopril 20 MG Tablet PO (10:55)
[2023-10-24] MEDS: Menthol/Lanolin/Calamine/Znox 113 GM Tube 1 APPLIC TOPICAL ×2 (10:56→20:28)
[2023-10-24] MEDS: Estradiol 0.5 MG Tablet PO (10:56)
[2023-10-24] MEDS: Ceftriaxone 1 GM/50 ML BAG IV (10:56)
--- NOTE | 2023-10-24 11:10 | PN.HOSP_ITS ---
Reason for Visit Reason for Visit: Diagnoses Hypertensive urgency (10/23/23) Acute cystitis without hematuria (10/23/23) Weakness (10/23/23) Personal history of other diseases of the nervous system and sense organs (10/23/23) Subjective Subjective No acute events overnight. Patient seen at bedside this morning. Laying comfortably in bed, conversing normally, no acute distress. Appears similar to yesterday. States she has a headache this morning, similar to yesterday. Was given a dose of her home sumatriptan yesterday and felt like this was somewhat helpful for her. She thinks that being off her Claritin?D may be contributing to her headaches. She otherwise denies any acute concerns this morning. Objective Data Objective Data Vital Signs: Vital Signs Temp Pulse Resp BP Pulse Ox O2 Del Method O2 Flow Rate 98.2 F 89 18 169/70 H 95 Room Air 2 10/24/23 05:32 10/24/23 07:32 10/24/23 07:32 10/24/23 05:40 10/24/23 07:32 10/24/23 07:32 10/22/23 19:13 Oxygen Flow Rate (L/min) 2 Oxygen Delivery Method Room Air Weight: 72.4 kg Body Mass Index (BMI) 28.3 Intake & Output: Intake and Output for Last 24 Hours 10/22/23 10/23/23 10/24/23 23:59 23:59 23:59 Intake Total 50 / 250 1400 / 1400 Output Total 1400 / 1400 400 / 400 Balance 50 / 250 0 / 0 -400 / -400 Lab / Micro Data 10/23/23 05:04 10/23/23 05:04 Labs: Laboratory Results - last 24 hr 10/23/23 17:37: POC Glucose 231 H 10/23/23 21:54: POC Glucose 145 H Micro: Microbiology 10/22/23 15:57 Urine, Catheterized Urine Culture - Final Klebsiella pneumoniae sp pneum Physical Exam Const alert, oriented x3, no apparent distress and average body habitus Constitutional Narrative: Elderly female, chronically ill-appearing, otherwise laying comfortably in bed, conversing normally, in no acute distress. General Appearance: cooperative and comfortable HEENT normocephalic, head/scalp atraumatic, hearing grossly normal bilaterally, nasal mucous membranes and turbinates normal and moist oral mucous membranes Eyes PERRL, EOMs intact bilaterally and conjunctivae normal Neck full ROM Chest inspection of chest normal Resp normal respiratory effort, normal air movement, no use of accessory muscles and clear to auscultation bilaterally Cardio regular rate, regular rhythm, no murmurs and peripheral pulses 2+ throughout GI normal to inspection, nondistended, normoactive bowel sounds, soft to palpation, non-tender and non-distended Back/Spine normal ROM Extremity normal to inspection and no pedal edema Skin no rashes or lesions noted Neuro CN's II-XII intact bilaterally and moves all extremities Neuro Narrative: Flexion of right upper extremity decreased compared to left. Generally weak in upper and lower extremities bilaterally. Sensorium / Orientation: awake and alert Speech: speech normal Psych mental status grossly normal Mood & Affect: anxious Assessment & Plan Assessment/Plan (1) History of myasthenia gravis: (2) Hypertensive urgency: (3) Weakness: (4) UTI (urinary tract infection): QUALIFIERS: Urinary tract infection type: acute cystitis H ematuria presence: without hematuria Qualified Code(s): N30.00 - Acute cystitis without hematuria PLAN: Plan Patient is a 78-year-old female who presented [facility] ED on 10/22/2023 with worsening weakness and difficulty with ambulation. 1. Acute on chronic debility, history of myasthenia gravis ? PT/OT/case management following. 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 Had thymectomy done about 30 years ago. Has not had any MG exacerbations in the past several years per her report. Has full-time caretakers at home but was previously able to walk and since 10/10 she has not not been able to walk at all. Unclear if acute cystitis may be playing a role in this, treating as below. Very low concern for acute MG crisis. Continue home pyridostigmine 60 mg 3 times daily. Medically ready for discharge on 10/23, awaiting SNF placement. 2. Hypertensive urgency, improved; history of hypertension ? Home regimen of only lisinopril 20 mg daily. Hypertensive urgency present in ED with systolic blood pressures over 180 and headache noted. Notably with no endorgan dysfunction. Unclear etiology, patient reported she did take her home lisinopril on morning of admission. Given 1 dose of IV hydralazine in the ED with good improvement in blood pressure and some improvement in headache. Continue home lisinopril 20 mg daily with IV hydralazine as needed, monitor. 3. Acute cystitis ? UA on admit with positive nitrites, 100 leukocyte esterase, 2+ bacteria. Urine culture grew 80-100K Klebsiella sensitive to ceftriaxone. No systemic signs of infection. Continue ceftriaxone, will plan for 5-day course of antibiotics total, stop date 10/26. Chronic medical conditions: ? Chronic pain: Stable. Continue home [place] 5-325 mg every 6 hours as needed. ? Migraines without aura: Continue home sumatriptan 100 mg daily as needed. ? Allergies: Continue home loratadine and montelukast. ? GERD: Continue home PPI. ? Anxiety/depression: Stable. Continue home sertraline. ? COPD not on home O2: Stable on room air, not in acute exacerbation. Continue home inhalers. DVT prophylaxis: Lovenox CODE STATUS: Full code, verified Expected disposition: SNF, medically ready for discharge on 10/23, awaiting placement Total clinical time spent by myself addressing the patient's medical issues, reviewing all the data, and collaborating with patient's care team: 35 minutes. Charges/Coding Visit Charges Inpatient E&M: 44843 Subs Hosp L2
[2023-10-24 13:06] LABS: Bedside Glucose 187 mg/dL (74-106)
[2023-10-24] MEDS: HYDROcodone Bitartrate/Apap 5/325 Tablet PO (20:27)
[2023-10-24 21:41] LABS: Bedside Glucose 139 mg/dL (74-106)
[2023-10-24 22:37] LABS: Bedside Glucose 184 mg/dL (74-106)
[2023-10-25] VITALS (8 sets, daily range): BP systolic 136–176; BP diastolic 58–76; PULSE 75–89; RESP 16–18; TEMP 36.6–37.2; O2SAT 95–97
[2023-10-25] MEDS: Pyridostigmine Bromide 60 MG Tablet PO ×3 (05:27→21:16)
[2023-10-25] MEDS: Albuterol 2.5 MG/3 ML VIAL.NEB. INHALATION ×3 (07:03→18:43)
[2023-10-25] MEDS: Budesonide Respules 0.5 MG/2 ML AMPUL.NEB. INHALATION ×2 (07:03→18:43)
[2023-10-25 07:08] LABS: Hematocrit 39.1 % (37-47); Mean Corp Hgb Conc 30.7 g/dL (32-36); Mean Corpuscular Hgb 27.6 pg (27.0-32.0); Mean Corpuscular Volume 90.1 fL (81-99); Platelet Count 374 K/mm3 (150-450); RBC Distribution Width CV 14.5 % (11.6-14.6); RBC Distribution Width SD 48.3 fl (35.1-43.9); Red Blood Count 4.34 M/mm3 (4.2-5.4); White Blood Count 9.3 K/mm3 (4.4-11.0)
[2023-10-25 07:23] LABS: Anion Gap 4 (5-15); BUN 15 mg/dL (7-18); BUN/Creat Ratio 26.4 RATIO (10-20); Calcium,Total 9.7 mg/dL (8.5-10.1); Chloride 107 mmol/L (98-107); Creatinine, Serum 0.57 mg/dL (0.55-1.02); EST Glomerular Filtration Rate 110 mL/min (>60); Est Glom Filt Rate - Afr Amer 133 mL/min (>60); Estimated Creatinine Clearance 57.04 ml/min; Glucose 140 mg/dL (74-106); Potassium 4.3 mmol/L (3.5-5.1); Sodium Level 137 mmol/L (136-145)
[2023-10-25 07:44] LABS: Bedside Glucose 149 mg/dL (74-106)
[2023-10-25] MEDS: Estradiol 0.5 MG Tablet PO (07:46)
[2023-10-25] MEDS: Pantoprazole Sodium 20 MG Tablet PO ×2 (07:46→21:17)
[2023-10-25] MEDS: HYDROcodone Bitartrate/Apap 5/325 Tablet PO ×2 (07:46→14:58)
[2023-10-25] MEDS: Montelukast 10 MG Tablet PO (07:46)
[2023-10-25] MEDS: Lisinopril 20 MG Tablet PO (07:46)
[2023-10-25] MEDS: Nystatin Powder 15gm Bottle 1 APPLIC TOPICAL ×2 (07:47→21:16)
[2023-10-25] MEDS: Enoxaparin 40 MG/0.4 ML Syringe SC (07:47)
[2023-10-25] MEDS: Menthol/Lanolin/Calamine/Znox 113 GM Tube 1 APPLIC TOPICAL ×2 (07:47→21:16)
[2023-10-25] MEDS: Sertraline 100 MG Tablet PO (07:47)
[2023-10-25] MEDS: 0.9% Saline Lock 10 ML Syringe IV (09:30)
[2023-10-25] MEDS: Ceftriaxone 1 GM/50 ML BAG IV (09:30)
[2023-10-25 11:41] LABS: Bedside Glucose 177 mg/dL (74-106)
--- NOTE | 2023-10-25 15:31 | PN.HOSP_ITS ---
Reason for Visit Reason for Visit: Diagnoses Hypertensive urgency (10/23/23) Acute cystitis without hematuria (10/23/23) Weakness (10/23/23) Personal history of other diseases of the nervous system and sense organs (10/23/23) Subjective Subjective Patient is a 78-year-old lady with history of myasthenia gravis who presented with progressive generalized weakness as well as difficulty with ambulation. Patient was found to have acute cystitis admitted to regular nursing floor for further management Objective Data Objective Data Vital Signs: Vital Signs Temp Pulse Resp BP Pulse Ox O2 Del Method O2 Flow Rate 98.2 F 85 16 162/59 H 97 Room Air 2 10/25/23 15:16 10/25/23 15:16 10/25/23 15:16 10/25/23 15:16 10/25/23 15:16 10/25/23 15:16 10/22/23 19:13 Oxygen Flow Rate (L/min) 2 Oxygen Delivery Method Room Air Weight: 72.4 kg Body Mass Index (BMI) 28.3 Intake & Output: Intake and Output for Last 24 Hours 10/23/23 10/24/23 10/25/23 23:59 23:59 23:59 Intake Total 1400 / 1400 1000 / 1000 300 / 300 Output Total 1400 / 1400 1400 / 1700 900 / 900 Balance 0 / 0 -400 / -700 -600 / -600 Lab / Micro Data 10/25/23 06:00 10/25/23 06:00 Labs: Laboratory Results - last 24 hr 10/24/23 16:42: POC Glucose 139 H 10/24/23 21:22: POC Glucose 184 H 10/25/23 06:00: WBC 9.3, RBC 4.34, Hgb 12.0, Hct 39.1, MCV 90.1, MCH 27.6, MCHC 30.7 L, RDW Std Deviation 48.3 H, RDW Coeff of Meir 14.5, Plt Count 374, MPV 11.0, Sodium 137, Potassium 4.3, Chloride 107, Carbon Dioxide 26.0, Anion Gap 4 L, BUN 15, Creatinine 0.57, Estim Creat Clear Calc 57.04, Est GFR (MDRD) Af Amer 133, Est GFR (MDRD) Non-Af 110, BUN/Creatinine Ratio 26.4 H, Glucose 140 H, Calcium 9.7 10/25/23 06:20: POC Glucose 149 H 10/25/23 11:00: POC Glucose 177 H Micro: Microbiology 10/22/23 15:57 Urine, Catheterized Urine Culture - Final Klebsiella pneumoniae sp pneum Physical Exam Narrative GENERAL: cooperative HEENT: Atraumatic; normocephalic EYES; Anicteric, Normal Conjunctiva NECK; supple, normal thyroid, RESPIRATORY: Diminished to auscultation CARDIOVASCULAR: Regular S1 S2, GI: soft, normoactive bowel sounds, : No Renal angle tenderness; EXTREMITIES: No edema, no clubbing, MUSCULOSKELETAL: no muscle wasting NEURO: Awake; no lateralizing signs. SKIN: No Rash PSYCH; Flat affect Assessment & Plan Assessment/Plan (1) History of myasthenia gravis: (2) Hypertensive urgency: (3) Weakness: (4) UTI (urinary tract infection): QUALIFIERS: Urinary tract infection type: acute cystitis H ematuria presence: without hematuria Qualified Code(s): N30.00 - Acute cystitis without hematuria PLAN: Plan Patient is a 78-year-old lady with history of myasthenia gravis who presented with progressive generalized weakness as well as difficulty with ambulation. Patient was found to have acute cystitis admitted to regular nursing floor for further management 1. Acute cystitis with Klebsiella ? Admitted to regular nursing floor urine and blood cultures were sent. Urine cultures came back positive for Klebsiella patient has been treated appropriately 2. Acute on chronic debility in the context of myasthenia gravis crisis Continued with pyridostigmine 60 mg 3 times daily 3. Acute hypertensive urgency ? Patient is on lisinopril did continue home dose added hydralazine as needed as well as scheduled amlodipine 4. Chronic pain syndrome patient is on [place] at home did continue 5. Chronic migraine without aura ? Patient assisted with sumatriptan 6. GERD ? Patient is on PPI 7. Depression with anxiety ? Patient is on sertraline 8. COPD ? With acute exacerbation did continue patient home meds 9. Physical deconditioning - Requested for PT OT eval and social and human services assistant to assist with discharge planning 10. DVT prophylaxis - On enoxaparin Time spent in the patient's overall evaluation,decision-making process, review of diagnostic data, adjustment of management, discussion with other providers, nursing nursing and ancillary staff involved in patient's care documentation, 38 Minutes Charges/Coding Visit Charges Inpatient E&M: 19196 Subs Hosp L2
[2023-10-25] MEDS: amLODIPine 10 MG Tablet PO (16:04)
--- NOTE | 2023-10-25 16:09 | CASEMGMT ---
Social Work- A list of SNF providers including quality and resource use data and consistent with the patient?s preferred geographic region, medical needs, and insurance network were provided from the [employer] Guide. Pt selected TCU as FOC followed by [facility]. Referral made to TCU; awaiting status determination. NATALIIA Gupta
[2023-10-25 16:24] LABS: Bedside Glucose 103 mg/dL (74-106)
[2023-10-25 21:35] LABS: Bedside Glucose 117 mg/dL (74-106)
[2023-10-26] VITALS (7 sets, daily range): BP systolic 121–152; BP diastolic 55–62; PULSE 77–91; RESP 16–18; TEMP 36.6–36.8; O2SAT 93–98
[2023-10-26] MEDS: Pyridostigmine Bromide 60 MG Tablet PO ×3 (06:08→21:42)
[2023-10-26 06:18] LABS: Absolute Lymphocyte Count 1.76 X10^3/uL (0.83-4.51); Absolute Neutrophil Count 6.8 X10^3/uL (2.0-7.7); Basophil# 0.05 X10^3/uL; Basophil% 0.5 % (0-1); Eosinophil# 0.29 X10^3/uL; Hematocrit 41.3 % (37-47); Hemoglobin 12.5 g/dL (12.0-15.0); Lymphocyte # 1.76 X10^3/ul (0.83-4.51); Mean Corp Hgb Conc 30.3 g/dL (32-36); Mean Corpuscular Hgb 27.2 pg (27.0-32.0); Mean Corpuscular Volume 89.8 fL (81-99); Mean Platelet Vol. 10.8 fl (6.2-12.0); Monocyte# 0.89 X10^3/uL; Monocyte% 9.1 % (0-10); NRBC Flagged by Analyzer 0 % (0-5); Neutrophil # 6.77 X10^3/uL (2.7-7.7); Neutrophil % 69.1 % (47-70); Platelet Count 402 K/mm3 (150-450); RBC Distribution Width CV 14.5 % (11.6-14.6); RBC Distribution Width SD 47.4 fl (35.1-43.9); White Blood Count 9.8 K/mm3 (4.4-11.0)
[2023-10-26 06:43] LABS: Bedside Glucose 152 mg/dL (74-106)
[2023-10-26 07:08] LABS: Anion Gap 4 (5-15); BUN 14 mg/dL (7-18); BUN/Creat Ratio 22.8 RATIO (10-20); Calcium,Total 10.5 mg/dL (8.5-10.1); Chloride 107 mmol/L (98-107); Creatinine, Serum 0.61 mg/dL (0.55-1.02); EST Glomerular Filtration Rate 101 mL/min (>60); Est Glom Filt Rate - Afr Amer 122 mL/min (>60); Estimated Creatinine Clearance 57.04 ml/min; Glucose 107 mg/dL (74-106); Magnesium 1.9 mg/dL (1.6-2.6); Phosphorus 3.1 mg/dL (2.5-4.9); Potassium 4.8 mmol/L (3.5-5.1); Sodium Level 138 mmol/L (136-145)
[2023-10-26] MEDS: Albuterol 2.5 MG/3 ML VIAL.NEB. INHALATION ×2 (07:23→20:09)
[2023-10-26] MEDS: Budesonide Respules 0.5 MG/2 ML AMPUL.NEB. INHALATION ×2 (07:23→20:10)
[2023-10-26] MEDS: Pantoprazole Sodium 20 MG Tablet PO ×2 (08:21→21:42)
[2023-10-26] MEDS: HYDROcodone Bitartrate/Apap 5/325 Tablet PO ×3 (08:21→21:44)
[2023-10-26] MEDS: Estradiol 0.5 MG Tablet PO (08:21)
[2023-10-26] MEDS: Lisinopril 20 MG Tablet PO (08:21)
[2023-10-26] MEDS: Enoxaparin 40 MG/0.4 ML Syringe SC (08:21)
[2023-10-26] MEDS: Montelukast 10 MG Tablet PO (08:22)
[2023-10-26] MEDS: Sertraline 100 MG Tablet PO (08:22)
[2023-10-26] MEDS: amLODIPine 10 MG Tablet PO (08:22)
[2023-10-26] MEDS: Menthol/Lanolin/Calamine/Znox 113 GM Tube 1 APPLIC TOPICAL ×2 (08:23→21:42)
[2023-10-26] MEDS: Nystatin Powder 15gm Bottle 1 APPLIC TOPICAL ×2 (08:23→21:42)
--- NOTE | 2023-10-26 08:31 | PCM.PN.HOSP ---
Reason for Visit Reason for Visit: Diagnoses Hypertensive urgency (10/23/23) Acute cystitis without hematuria (10/23/23) Weakness (10/23/23) Personal history of other diseases of the nervous system and sense organs (10/23/23) Subjective Subjective Patient seen blood pressure improved after addition of amlodipine. Transferred to nursing home facility pending Objective Data Objective Data Vital Signs: Vital Signs Temp Pulse Resp BP Pulse Ox O2 Del Method O2 Flow Rate 98.3 F 84 16 143/60 H 97 Room Air 2 10/26/23 07:42 10/26/23 07:42 10/26/23 07:42 10/26/23 07:42 10/26/23 07:42 10/26/23 07:42 10/22/23 19:13 Oxygen Flow Rate (L/min) 2 Oxygen Delivery Method Room Air Weight: 72.4 kg Body Mass Index (BMI) 28.3 Intake & Output: Intake and Output for Last 24 Hours 10/24/23 10/25/23 10/26/23 23:59 23:59 23:59 Intake Total 1000 / 1000 700 / 700 Output Total 1400 / 1700 1100 / 1800 1700 / 1700 Balance -400 / -700 -400 / -1100 -1700 / -1700 Lab / Micro Data 10/26/23 05:42 10/26/23 05:42 Labs: Laboratory Results - last 24 hr 10/25/23 11:00: POC Glucose 177 H 10/25/23 16:03: POC Glucose 103 10/25/23 21:14: POC Glucose 117 H 10/26/23 05:42: WBC 9.8, RBC 4.60, Hgb 12.5, Hct 41.3, MCV 89.8, MCH 27.2, MCHC 30.3 L, RDW Std Deviation 47.4 H, RDW Coeff of Meir 14.5, Plt Count 402, MPV 10.8, Immature Gran % (Auto) 0.300, Neut % (Auto) 69.1, Lymph % (Auto) 18.0 L, [place] % (Auto) 9.1, Eos % (Auto) 3.0, Baso % (Auto) 0.5, Absolute Neuts (auto) 6.8, Absolute Lymphs (auto) 1.76, Nucleated RBC % 0, Sodium 138, Potassium 4.8, Chloride 107, Carbon Dioxide 27.0, Anion Gap 4 L, BUN 14, Creatinine 0.61, Estim Creat Clear Calc 57.04, Est GFR (MDRD) Af Amer 122, Est GFR (MDRD) Non-Af 101, BUN/Creatinine Ratio 22.8 H, Glucose 107 H, Calcium 10.5 H, Phosphorus 3.1, Magnesium 1.9 10/26/23 06:07: POC Glucose 152 H Micro: Microbiology 10/22/23 15:57 Urine, Catheterized Urine Culture - Final Klebsiella pneumoniae sp pneum Physical Exam Narrative GENERAL: cooperative HEENT: Atraumatic; normocephalic EYES; Anicteric, Normal Conjunctiva NECK; supple, normal thyroid, RESPIRATORY: Diminished to auscultation CARDIOVASCULAR: Regular S1 S2, GI: soft, normoactive bowel sounds, : No Renal angle tenderness; EXTREMITIES: No edema, no clubbing, MUSCULOSKELETAL: no muscle wasting NEURO: Awake; no lateralizing signs. SKIN: No Rash PSYCH; Flat affect Assessment & Plan Assessment/Plan (1) History of myasthenia gravis: (2) Hypertensive urgency: (3) Weakness: (4) UTI (urinary tract infection): QUALIFIERS: Urinary tract infection type: acute cystitis Hematuria presence: without hematuria Qualified Code(s): N30.00 - Acute cystitis without hematuria PLAN: Plan Patient is a 78-year-old lady with history of myasthenia gravis who presented with progressive generalized weakness as well as difficulty with ambulation. Patient was found to have acute cystitis admitted to regular nursing floor for further management 1. Acute cystitis with Klebsiella ? Admitted to regular nursing floor urine and blood cultures were sent. Urine cultures came back positive for Klebsiella patient has been treated appropriately ? 10/26/2023; WBC count within normal limits patient remains afebrile 2. Acute on chronic debility in the context of myasthenia gravis crisis Continued with pyridostigmine 60 mg 3 times daily 3. Acute hypertensive urgency ? Patient is on lisinopril did continue home dose added hydralazine as needed as well as scheduled amlodipine ? 10/26/2023; patient blood pressure control improved with addition of amlodipine 4. Chronic pain syndrome patient is on [place] at home did continue 5. Chronic migraine without aura ? Patient assisted with sumatriptan 6. GERD ? Patient is on PPI 7. Depression with anxiety ? Patient is on sertraline 8. COPD ? With acute exacerbation did continue patient home meds 9. Physical deconditioning - Requested for PT OT eval and social services assistant to assist with discharge planning 10. DVT prophylaxis - On enoxaparin Time spent in the patient's overall evaluation,decision-making process, review of diagnostic data, adjustment of management, discussion with other providers, nursing nursing and ancillary staff involved in patient's care documentation, 35 Minutes Charges/Coding Visit Charges Inpatient E&M: 13087 Subs Hosp L2
--- NOTE | 2023-10-26 09:17 | CASEMGMT ---
Addendum entered by Amy Driscoll 10/26/23 11:45: [facility] declined. [facility] and [facility] have accepted. SW updated. Amy Driscoll DC Planning Asst. Original Note: Discharge Planning New SNF list completed after insurance card was received. Patient and her son asked for referrals to be sent to [facility], [facility], and [facility]. Goal is to remain close to [place] where her son resides. SW updated. Amy Driscoll DC Planning Asst.
[2023-10-26] MEDS: 0.9% Saline Lock 10 ML Syringe IV ×2 (09:32→14:21)
[2023-10-26] MEDS: Ceftriaxone 1 GM/50 ML BAG IV (09:32)
--- NOTE | 2023-10-26 11:48 | CASEMGMT ---
Discharge Planning Patient would like to proceed with [facility]. Facility updated and asked to submit precert. Amy Driscoll DC Planning Asst.
--- NOTE | 2023-10-26 11:49 | CASEMGMT ---
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 She states she is not sure. 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 SW explained will ask Liane from [employer] to come see her to look into applying, pt is open to this. SW spoke w/pt about SNF as well, pt is not sure if she would prefer [facility] or [facility]. SW let pt know will inform her as soon as we hear back from [facility], but [facility] did accept her. JUAN sent an email to Liane asking if she can come see pt. Amy, d/c material planning analyst did hear back from [facility], they cannot take pt. [facility] [place] and [facility] can accept. SW let pt know, she would like to go to [facility]. Amy let them know, [facility] will start precert. SW will continue to follow, plan at this time is [facility] pending precert. SERGEY Eaton
[2023-10-26 11:52] LABS: Bedside Glucose 186 mg/dL (74-106)
[2023-10-26] MEDS: Ondansetron 4 MG/2 ML Vial IV (14:21)
[2023-10-26 16:33] LABS: Bedside Glucose 143 mg/dL (74-106)
[2023-10-26 22:05] LABS: Bedside Glucose 153 mg/dL (74-106)
[2023-10-27] VITALS (8 sets, daily range): BP systolic 126–158; BP diastolic 56–76; PULSE 80–90; RESP 16–18; TEMP 36.6–37.2; O2SAT 94–97
[2023-10-27] MEDS: Pyridostigmine Bromide 60 MG Tablet PO ×3 (05:49→22:23)
[2023-10-27 06:15] LABS: Bedside Glucose 124 mg/dL (74-106)
[2023-10-27 07:19] LABS: Absolute Lymphocyte Count 1.78 X10^3/uL (0.83-4.51); Basophil# 0.07 X10^3/uL; Basophil% 0.8 % (0-1); Eosinophil# 0.27 X10^3/uL; Hematocrit 41.9 % (37-47); Hemoglobin 12.6 g/dL (12.0-15.0); Lymphocyte # 1.78 X10^3/ul (0.83-4.51); Lymphocyte % 19.7 % (19-41); Mean Corp Hgb Conc 30.1 g/dL (32-36); Mean Corpuscular Hgb 27.3 pg (27.0-32.0); Mean Corpuscular Volume 90.7 fL (81-99); Mean Platelet Vol. 10.8 fl (6.2-12.0); Monocyte# 0.89 X10^3/uL; Monocyte% 9.8 % (0-10); NRBC Flagged by Analyzer 0 % (0-5); Neutrophil % 66.3 % (47-70); Platelet Count 421 K/mm3 (150-450); RBC Distribution Width CV 14.3 % (11.6-14.6); RBC Distribution Width SD 48.1 fl (35.1-43.9); Red Blood Count 4.62 M/mm3 (4.2-5.4); White Blood Count 9.1 K/mm3 (4.4-11.0)
[2023-10-27] MEDS: Budesonide Respules 0.5 MG/2 ML AMPUL.NEB. INHALATION ×2 (07:23→19:17)
[2023-10-27] MEDS: Albuterol 2.5 MG/3 ML VIAL.NEB. INHALATION ×3 (07:23→19:16)
--- NOTE | 2023-10-27 08:08 | PCM.PN.HOSP ---
Reason for Visit Reason for Visit: Diagnoses Hypertensive urgency (10/23/23) Acute cystitis without hematuria (10/23/23) Weakness (10/23/23) Personal history of other diseases of the nervous system and sense organs (10/23/23) Subjective Subjective Patient seen no change in clinical condition awaiting transfer to intermediate. Objective Data Objective Data Vital Signs: Vital Signs Temp Pulse Resp BP Pulse Ox O2 Del Method O2 Flow Rate 97.8 F 80 18 126/57 H 97 Room Air 2 10/27/23 02:00 10/27/23 07:23 10/27/23 07:23 10/27/23 02:00 10/27/23 07:23 10/27/23 07:23 10/22/23 19:13 Oxygen Flow Rate (L/min) 2 Oxygen Delivery Method Room Air Weight: 72.4 kg Body Mass Index (BMI) 28.3 Intake & Output: Intake and Output for Last 24 Hours 10/25/23 10/26/23 10/27/23 23:59 23:59 23:59 Intake Total 700 / 700 600 / 600 Output Total 1100 / 1800 2350 / 2650 1100 / 1100 Balance -400 / -1100 -1750 / -2050 -1100 / -1100 Lab / Micro Data 10/27/23 06:43 10/27/23 06:43 Labs: Laboratory Results - last 24 hr 10/26/23 11:13: POC Glucose 186 H 10/26/23 16:07: POC Glucose 143 H 10/26/23 21:41: POC Glucose 153 H 10/27/23 05:48: POC Glucose 124 H 10/27/23 06:43: WBC 9.1, RBC 4.62, Hgb 12.6, Hct 41.9, MCV 90.7, MCH 27.3, MCHC 30.1 L, RDW Std Deviation 48.1 H, RDW Coeff of Meir 14.3, Plt Count 421, MPV 10.8, Immature Gran % (Auto) 0.400, Neut % (Auto) 66.3, Lymph % (Auto) 19.7, [place] % (Auto) 9.8, Eos % (Auto) 3.0, Baso % (Auto) 0.8, Absolute Neuts (auto) 6.0, Absolute Lymphs (auto) 1.78, Nucleated RBC % 0 Micro: Microbiology 10/22/23 15:57 Urine, Catheterized Urine Culture - Final Klebsiella pneumoniae sp pneum Physical Exam Narrative GENERAL: cooperative HEENT: Atraumatic; normocephalic EYES; Anicteric, Normal Conjunctiva NECK; supple, normal thyroid, RESPIRATORY: Diminished to auscultation CARDIOVASCULAR: Regular S1 S2, GI: soft, normoactive bowel sounds, : No Renal angle tenderness; EXTREMITIES: No edema, no clubbing, MUSCULOSKELETAL: no muscle wasting NEURO: Awake; no lateralizing signs. SKIN: No Rash PSYCH; Flat affect Assessment & Plan Assessment/Plan (1) History of myasthenia gravis: (2) Hypertensive urgency: (3) Weakness: (4) UTI (urinary tract infection): QUALIFIERS: Hematuria presence: without hematuria Urinary tract infection type: acute cystitis Qualified Code(s): N30.00 - Acute cystitis without hematuria PLAN: Plan Patient is a 78-year-old lady with history of myasthenia gravis who presented with progressive generalized weakness as well as difficulty with ambulation. Patient was found to have acute cystitis admitted to regular nursing floor for further management 1. Acute cystitis with Klebsiella ? Admitted to regular nursing floor urine and blood cultures were sent. Urine cultures came back positive for Klebsiella patient has been treated appropriately ? 10/26/2023; WBC count within normal limits patient remains afebrile 2. Acute on chronic debility in the context of myasthenia gravis crisis Continued with pyridostigmine 60 mg 3 times daily 3. Acute hypertensive urgency ? Patient is on lisinopril did continue home dose added hydralazine as needed as well as scheduled amlodipine ? 10/26/2023; patient blood pressure control improved with addition of amlodipine 4. Chronic pain syndrome -patient is on [place] at home did continue 5. Chronic migraine without aura ? Patient assisted with sumatriptan 6. GERD ? Patient is on PPI 7. Depression with anxiety ? Patient is on sertraline 8. COPD ? With acute exacerbation did continue patient home meds 9. Physical deconditioning - Requested for PT OT eval and social insurance specialist to assist with discharge planning 10/26/2021 before discharging to intermediate facility pending 10. DVT prophylaxis - On enoxaparin Time spent in the patient's overall evaluation,decision-making process, review of diagnostic data, adjustment of management, discussion with other providers, nursing nursing and ancillary staff involved in patient's care documentation, 35 Minutes Charges/Coding Visit Charges Inpatient E&M: 33692 Subs Hosp L2
--- NOTE | 2023-10-27 08:18 | PCM.TXEXTCAR ---
Diet Diet Order/Speech Therapy: 10/22/23 20:03 Diet: Cardiac - Heart Healthy Food consistency:: Regular Liquid Consistency:: Regular/Thin Wound(s) R abdominal fold: Wound Type: Abrasion Therapies Physical Therapy: Eval and Treat Occupational Therapy: Eval and Treat Problem/Diagnosis (1) History of myasthenia gravis: Status: Acute Code(s): Z86.69 - Personal history of other diseases of the nervous system and sense organs (2) Hypertensive urgency: Status: Acute Code(s): I16.0 - Hypertensive urgency (3) Weakness: Status: Acute Code(s): R53.1 - Weakness (4) UTI (urinary tract infection): Status: Acute Code(s): N39.0 - Urinary tract infection, site not specified Plan Patient is a 78-year-old lady with history of myasthenia gravis who presented with progressive generalized weakness as well as difficulty with ambulation. Patient was found to have acute cystitis admitted to regular nursing floor for further management 1. Acute cystitis with Klebsiella ? Admitted to regular nursing floor urine and blood cultures were sent. Urine cultures came back positive for Klebsiella patient has been treated appropriately ? 10/26/2023; WBC count within normal limits patient remains afebrile 2. Acute on chronic debility in the context of myasthenia gravis crisis Continued with pyridostigmine 60 mg 3 times daily 3. Acute hypertensive urgency ? Patient is on lisinopril did continue home dose added hydralazine as needed as well as scheduled amlodipine ? 10/26/2023; patient blood pressure control improved with addition of amlodipine 4. Chronic pain syndrome -patient is on [place] at home did continue 5. Chronic migraine without aura ? Patient assisted with sumatriptan 6. GERD ? Patient is on PPI 7. Depression with anxiety ? Patient is on sertraline 8. COPD ? With acute exacerbation did continue patient home meds 9. Physical deconditioning - Requested for PT OT eval and social services technician to assist with discharge planning 10/26/2021 before discharging to long term facility pending 10. DVT prophylaxis - On enoxaparin Time spent in the patient's overall evaluation,decision-making process, review of diagnostic data, adjustment of management, discussion with other providers, nursing nursing and ancillary staff involved in patient's care documentation, 35 Minutes Allergies/Procedures Done in Hospital Allergies Beta-Blockers (Beta-Adrenergic Bloc Allergy (Severe, Verified 10/22/23 12:02) Other M YASTHENIA GRAVIS Horse/Equine Containing Products Adverse Reaction (Verified 10/22/23 12:00) NEEDS FOLLOW-UP Sugars, Metabolically Active Adverse Reaction (Verified 10/22/23 12:00) Unknown Type of Care/Length of Stay Estimated LOS: Convalescent Care Less Than 30 days Type of Care Needed: Skilled Rehab Potential: Good Prognosis: Good Additional Orders/Day of Discharge Day of Discharge: 10/27/23 Dietary and Speech Recommendations Dietitian Recommendations/Changes: Continue cardiac diet Discharge Plan Admission Admit Date/Time: 10/23/23 13:38 Attending Provider: Jesus Landers Primary Care Provider: Beena Whitfield Consulting Providers: Mariano Glover; Itz Gamez Discharge Orders/Prescriptions Prescriptions: New amlodipine 10 mg Tablet 10 mg PO DAILY Qty: 0 0RF hydrocodone-acetaminophen 5-325 mg Tablet 1 tab PO Q6H PRN PRN (Reason: Pain 5-10 Or Fever > 100.7 F) 2 Days Qty: 8 0RF loperamide 2 mg Capsule 2 mg PO DAILY PRN PRN (Reason: DIARRHEA) Qty: 0 0RF melatonin 3 mg Tablet 3 mg PO QHS PRN PRN (Reason: Insomnia) Qty: 0 0RF cefdinir 300 mg capsule 300 mg PO BID Qty: 6 0RF Continued loratadine-pseudoephedrine 1 EACH tablet extended release 12 hr 1 ea PO BID lisinopril 20 MG tablet 20 mg PO DAILY sertraline 100 MG tablet 100 mg PO DAILY montelukast 10 MG tablet 10 mg PO DAILY albuterol sulfate 90 mcg/actuation HFA aerosol inhaler 2 puff inhalation Q4H PRN pyridostigmine bromide 60 mg tablet 60 mg PO TID PRN omeprazole 20 mg capsule,delayed release(DR/EC) 20 mg PO BID estradiol 0.5 mg tablet 0.5 mg PO DAILY budesonide-formoterol 80-4.5 mcg/actuation HFA aerosol inhaler 2 puff INHALATION BID sumatriptan succinate 100 mg tablet 100 mg PO PRN cholecalciferol (vitamin D3) [Vitamin D3] 25 mcg (1,000 unit) capsule 6,000 unit PO DAILY Discontinued hydrocodone-acetaminophen 1 EACH tablet 1 ea PO PRN PRN (Reason: Pain Or Fever) Referrals / Follow Up: Beena Whitfield, PA [Primary Care Provider] - Disposition Disposition (needs filled in before D/C Order can be placed): [facility] (4) UTI (urinary tract infection) Qualifiers: Hematuria presence: without hematuria Urinary tract infection type: acute cystitis Qualified Code(s): N30.00 - Acute cystitis without hematuria
[2023-10-27] MEDS: amLODIPine 10 MG Tablet PO (08:42)
[2023-10-27] MEDS: Estradiol 0.5 MG Tablet PO (08:43)
[2023-10-27] MEDS: Sertraline 100 MG Tablet PO (08:43)
[2023-10-27] MEDS: Pantoprazole Sodium 20 MG Tablet PO ×2 (08:43→22:23)
[2023-10-27] MEDS: Menthol/Lanolin/Calamine/Znox 113 GM Tube 1 APPLIC TOPICAL ×2 (08:44→22:23)
[2023-10-27] MEDS: Nystatin Powder 15gm Bottle 1 APPLIC TOPICAL ×2 (08:44→22:22)
[2023-10-27] MEDS: Montelukast 10 MG Tablet PO (08:45)
[2023-10-27] MEDS: Lisinopril 20 MG Tablet PO (08:45)
[2023-10-27] MEDS: Enoxaparin 40 MG/0.4 ML Syringe SC (08:45)
[2023-10-27] MEDS: Ceftriaxone 1 GM/50 ML BAG IV (08:49)
[2023-10-27] MEDS: HYDROcodone Bitartrate/Apap 5/325 Tablet PO ×2 (08:50→16:50)
[2023-10-27] MEDS: Cholecalciferol (Vit D3) 125 MCG CAPSULE (5,000 UNITS) PO (08:52)
[2023-10-27] MEDS: 0.9% Saline Lock 10 ML Syringe IV (08:52)
[2023-10-27 09:23] LABS: Bedside Glucose 118 mg/dL (74-106)
[2023-10-27 09:45] LABS: Anion Gap 5 (5-15); BUN 18 mg/dL (7-18); BUN/Creat Ratio 24.2 RATIO (10-20); Calcium,Total 10.4 mg/dL (8.5-10.1); Chloride 103 mmol/L (98-107); Creatinine, Serum 0.74 mg/dL (0.55-1.02); EST Glomerular Filtration Rate 80 mL/min (>60); Est Glom Filt Rate - Afr Amer 97 mL/min (>60); Estimated Creatinine Clearance 57.04 ml/min; Glucose 153 mg/dL (74-106); Potassium 4.7 mmol/L (3.5-5.1); Sodium Level 136 mmol/L (136-145)
[2023-10-27 11:58] LABS: Bedside Glucose 151 mg/dL (74-106)
--- NOTE | 2023-10-27 15:35 | CASEMGMT ---
Addendum entered by Sheron Gu 10/27/23 15:47: Social Work SW met with pt and informed that [facility] can accept pt and precert is pending. SW offered to contact pt family to inform of dc plan and pt declines stating she has already informed them and will be in communication with family. NATALIIA Hawk Original Note: Social Work [facility] and Medicaid application for [employer] has been submitted to [facility]. SW will continue to follow for dc planning. Precert has been started at the [facility]. Plan: [facility], pending precert NATALIIA Hawk
--- NOTE | 2023-10-27 16:29 | CASEMGMT ---
Social Work- Pt pending medicaid per Liane, [employer]. Her pending case # is [id number].? NATALIIA Gupta
[2023-10-27] MEDS: Fluconazole 100 MG Tablet 200 MG PO (18:32)
[2023-10-27 21:22] LABS: Bedside Glucose 137 mg/dL (74-106)
[2023-10-28 06:00] VITALS: BP 156/72; PULSE 82; RESP 18; TEMP 37; O2SAT 96
[2023-10-28] MEDS: HYDROcodone Bitartrate/Apap 5/325 Tablet PO (06:13)
[2023-10-28] MEDS: Pyridostigmine Bromide 60 MG Tablet PO ×2 (06:13→21:29)
[2023-10-28 06:47] LABS: Bedside Glucose 135 mg/dL (74-106)
[2023-10-28 06:50] VITALS: PULSE 76; RESP 18; O2SAT 98
[2023-10-28] MEDS: Budesonide Respules 0.5 MG/2 ML AMPUL.NEB. INHALATION ×2 (06:50→19:25)
[2023-10-28] MEDS: Albuterol 2.5 MG/3 ML VIAL.NEB. INHALATION ×3 (06:50→19:25)
[2023-10-28 06:51] LABS: Absolute Lymphocyte Count 1.79 X10^3/uL (0.83-4.51); Absolute Neutrophil Count 6.8 X10^3/uL (2.0-7.7); Basophil# 0.07 X10^3/uL; Basophil% 0.7 % (0-1); Eosinophil# 0.23 X10^3/uL; Eosinophils% 2.3 % (0-5); Hematocrit 41.5 % (37-47); Hemoglobin 12.6 g/dL (12.0-15.0); Lymphocyte # 1.79 X10^3/ul (0.83-4.51); Lymphocyte % 18.2 % (19-41); Mean Corp Hgb Conc 30.4 g/dL (32-36); Mean Corpuscular Hgb 27.5 pg (27.0-32.0); Mean Corpuscular Volume 90.4 fL (81-99); Mean Platelet Vol. 10.5 fl (6.2-12.0); Monocyte# 0.87 X10^3/uL; Monocyte% 8.9 % (0-10); NRBC Flagged by Analyzer 0 % (0-5); Neutrophil # 6.81 X10^3/uL (2.7-7.7); Neutrophil % 69.5 % (47-70); Platelet Count 438 K/mm3 (150-450); RBC Distribution Width CV 14.4 % (11.6-14.6); RBC Distribution Width SD 47.6 fl (35.1-43.9); Red Blood Count 4.59 M/mm3 (4.2-5.4); White Blood Count 9.8 K/mm3 (4.4-11.0)
[2023-10-28 07:03] LABS: Anion Gap 3 (5-15); BUN 21 mg/dL (7-18); BUN/Creat Ratio 27.9 RATIO (10-20); Calcium,Total 10.1 mg/dL (8.5-10.1); Chloride 104 mmol/L (98-107); Creatinine, Serum 0.75 mg/dL (0.55-1.02); EST Glomerular Filtration Rate 80 mL/min (>60); Est Glom Filt Rate - Afr Amer 96 mL/min (>60); Estimated Creatinine Clearance 57.04 ml/min; Glucose 159 mg/dL (74-106); Potassium 4.7 mmol/L (3.5-5.1); Sodium Level 137 mmol/L (136-145)
--- NOTE | 2023-10-28 08:12 | PN.HOSP_ITS ---
Reason for Visit Reason for Visit: Diagnoses Hypertensive urgency (10/23/23) Acute cystitis without hematuria (10/23/23) Weakness (10/23/23) Personal history of other diseases of the nervous system and sense organs (10/23/23) Subjective Subjective Patient [facility] Patient did complain of the knees like symptoms and he did receive 200 mg of Diflucan x 1 Objective Data Objective Data Vital Signs: Vital Signs Temp Pulse Resp BP Pulse Ox O2 Del Method O2 Flow Rate 98.6 F 82 18 156/72 H 96 Room Air 2 10/28/23 06:00 10/28/23 06:00 10/28/23 06:00 10/28/23 06:00 10/28/23 06:00 10/28/23 06:00 10/22/23 19:13 Oxygen Flow Rate (L/min) 2 Oxygen Delivery Method Room Air Weight: 72.4 kg Body Mass Index (BMI) 28.3 Intake & Output: Intake and Output for Last 24 Hours 10/26/23 10/27/23 10/28/23 23:59 23:59 23:59 Intake Total 600 / 600 400 / 400 Output Total 2350 / 2650 1750 / 1750 600 / 600 Balance -1750 / -2050 -1350 / -1350 -600 / -600 Lab / Micro Data 10/28/23 06:32 10/28/23 06:32 Labs: Laboratory Results - last 24 hr 10/27/23 06:43: Sodium 136, Potassium 4.7, Chloride 103, Carbon Dioxide 28.0, Anion Gap 5, BUN 18, Creatinine 0.74, Estim Creat Clear Calc 57.04, Est GFR (MDRD) Af Amer 97, Est GFR (MDRD) Non-Af 80, BUN/Creatinine Ratio 24.2 H, G lucose 153 H, Calcium 10.4 H 10/27/23 08:32: POC Glucose 118 H 10/27/23 11:39: POC Glucose 151 H 10/27/23 16:31: POC Glucose 137 H 10/28/23 06:29: POC Glucose 135 H 10/28/23 06:32: WBC 9.8, RBC 4.59, Hgb 12.6, Hct 41.5, MCV 90.4, MCH 27.5, MCHC 30.4 L, RDW Std Deviation 47.6 H, RDW Coeff of Meir 14.4, Plt Count 438, MPV 10.5, Immature Gran % (Auto) 0.400, Neut % (Auto) 69.5, Lymph % (Auto) 18.2 L, [place] % (Auto) 8.9, Eos % (Auto) 2.3, Baso % (Auto) 0.7, Absolute Neuts (auto) 6.8, Absolute Lymphs (auto) 1.79, Nucleated RBC % 0, Sodium 137, Potassium 4.7, Chloride 104, Carbon Dioxide 30.0, Anion Gap 3 L, BUN 21 H, Creatinine 0.75, Estim Creat Clear Calc 57.04, Est GFR (MDRD) Af Amer 96, Est GFR (MDRD) Non-Af 80, BUN/Creatinine Ratio 27.9 H, Glucose 159 H, Calcium 10.1 Micro: Microbiology 10/22/23 15:57 Urine, Catheterized Urine Culture - Final Klebsiella pneumoniae sp pneum Physical Exam Narrative GENERAL: cooperative HEENT: Atraumatic; normocephalic EYES; Anicteric, Normal Conjunctiva NECK; supple, normal thyroid, RESPIRATORY: Diminished to auscultation CARDIOVASCULAR: Regular S1 S2, GI: soft, normoactive bowel sounds, : No Renal angle tenderness; EXTREMITIES: No edema, no clubbing, MUSCULOSKELETAL: no muscle wasting NEURO: Awake; no lateralizing signs. SKIN: No Rash PSYCH; Flat affect Assessment & Plan Assessment/Plan (1) History of myasthenia gravis: (2) Hypertensive urgency: (3) Weakness: (4) UTI (urinary tract infection): QUALIFIERS: Hematuria presence: without hematuria Urinary tract infection type: acute cystitis Qualified Code(s): N30.00 - Acute cystitis without hematuria PLAN: Plan Patient is a 78-year-old lady with history of myasthenia gravis who presented with progressive generalized weakness as well as difficulty with ambulation. Patient was found to have acute cystitis admitted to regular nursing floor for further management 1. Acute cystitis with Klebsiella ? Admitted to regular nursing floor urine and blood cultures were sent. Urine cultures came back positive for Klebsiella patient has been treated appropriately ? 10/26/2023; WBC count within normal limits patient remains afebrile 2. Acute on chronic debility in the context of myasthenia gravis (crisis rule out) Continued with pyridostigmine 60 mg 3 times daily 3. Acute hypertensive urgency ? Patient is on lisinopril did continue home dose added hydralazine as needed as well as scheduled amlodipine ? 10/26/2023; patient blood pressure control improved with addition of amlodipine 4. Chronic pain syndrome -patient is on [place] at home did continue 5. Chronic migraine without aura ? Patient assisted with sumatriptan 6. GERD ? Patient is on PPI 7. Depression with anxiety ? Patient is on sertraline 8. COPD ? With acute exacerbation did continue patient home meds 9. Physical deconditioning - Requested for PT OT eval and high school social studies teacher to assist with discharge planning 10/26/2021 before discharging [facility] pending 10. DVT prophylaxis - On enoxaparin 11. Vaginal candidiasis ? Treated with Diflucan 20 mg x 1 Time spent in the patient's overall evaluation,decision-making process, review of diagnostic data, adjustment of management, discussion with other providers, nursing nursing and ancillary staff involved in patient's care documentation, 35 Minutes Charges/Coding Visit Charges Inpatient E&M: 22692 Subs Hosp L2
--- NOTE | 2023-10-28 08:56 | CASEMGMT ---
Discharge Planning Updates sent to [facility] via fax. Confirmation rec'd. Amy Driscoll DC Planning Asst.
[2023-10-28] MEDS: Nystatin Powder 15gm Bottle 1 APPLIC TOPICAL ×2 (09:37→21:28)
[2023-10-28] MEDS: Enoxaparin 40 MG/0.4 ML Syringe SC (09:37)
[2023-10-28] MEDS: Montelukast 10 MG Tablet PO (09:38)
[2023-10-28] MEDS: Ceftriaxone 1 GM/50 ML BAG IV (09:38)
[2023-10-28] MEDS: Estradiol 0.5 MG Tablet PO (09:38)
[2023-10-28] MEDS: Pantoprazole Sodium 20 MG Tablet PO ×2 (09:38→21:30)
[2023-10-28] MEDS: Menthol/Lanolin/Calamine/Znox 113 GM Tube 1 APPLIC TOPICAL ×2 (09:39→21:29)
[2023-10-28] MEDS: Cholecalciferol (Vit D3) 125 MCG CAPSULE (5,000 UNITS) PO (09:39)
[2023-10-28] MEDS: amLODIPine 10 MG Tablet PO (09:39)
[2023-10-28] MEDS: Lisinopril 20 MG Tablet PO (09:40)
[2023-10-28] MEDS: Sertraline 100 MG Tablet PO (09:40)
[2023-10-28 12:15] VITALS: PULSE 80; RESP 16; O2SAT 94
[2023-10-28 12:17] LABS: Bedside Glucose 158 mg/dL (74-106)
--- NOTE | 2023-10-28 14:42 | CASEMGMT ---
Discharge Planning [facility] has obtained auth. SW updated. Amy Driscoll DC Planning Asst.
--- NOTE | 2023-10-28 14:52 | DS.PCM_ITS ---
Providers Date of Admission: 10/23/23 Date of Discharge: 10/29/23 Primary Care Physician: DAT Dale Reason For Visit: UTI Diagnosis Discharge Diagnosis (1) History of myasthenia gravis: Status: Acute Code(s): Z86.69 - Personal history of other diseases of the nervous system and sense organs (2) Hypertensive urgency: Status: Acute Code(s): I16.0 - Hypertensive urgency (3) Weakness: Status: Acute Code(s): R53.1 - Weakness (4) UTI (urinary tract infection): Status: Acute Code(s): N39.0 - Urinary tract infection, site not specified Qualifiers: Hematuria presence: without hematuria Urinary tract infection type: a cute cystitis Qualified Code(s): N30.00 - Acute cystitis without hematuria Plan Patient is a 78-year-old lady with history of myasthenia gravis who presented with progressive generalized weakness as well as difficulty with ambulation. Patient was found to have acute cystitis admitted to regular nursing floor for further management 1. Acute cystitis with Klebsiella ? Admitted to regular nursing floor urine and blood cultures were sent. Urine cultures came back positive for Klebsiella patient has been treated appropriately ? 10/26/2023; WBC count within normal limits patient remains afebrile 2. Acute on chronic debility in the context of myasthenia gravis crisis Continued with pyridostigmine 60 mg 3 times daily 3. Acute hypertensive urgency ? Patient is on lisinopril did continue home dose added hydralazine as needed as well as scheduled amlodipine ? 10/26/2023; patient blood pressure control improved with addition of amlodipine 4. Chronic pain syndrome -patient is on [place] at home did continue 5. Chronic migraine without aura ? Patient assisted with sumatriptan 6. GERD ? Patient is on PPI 7. Depression with anxiety ? Patient is on sertraline 8. COPD ? With acute exacerbation did continue patient home meds 9. Physical deconditioning - Requested for PT OT eval and social worker masters to assist with discharge planning 10/26/2021 before discharging to detention facility pending 10. DVT prophylaxis - On enoxaparin Time spent in the patient's overall evaluation,decision-making process, review of diagnostic data, adjustment of management, discussion with other providers, nursing nursing and ancillary staff involved in patient's care documentation, 35 Minutes Medications at Discharge Home Medications lisinopril 20 mg tablet 20 mg PO DAILY 05/04/19 loratadine 5 mg-pseudoephedrine ER 120 mg tablet,extended release,12hr 1 ea PO BID 05/04/19 montelukast 10 mg tablet 10 mg PO DAILY 05/04/19 sertraline 100 mg tablet 100 mg PO DAILY 05/04/19 albuterol sulfate 90 mcg/actuation aerosol inhaler 2 puff inhalation Q4H PRN 10/22/23 budesonide-formoterol HFA 80 mcg-4.5 mcg/actuation aerosol inhaler 2 puff inhalation BID 10/22/23 estradiol 0.5 mg tablet 0.5 mg PO DAILY 10/22/23 omeprazole 20 mg capsule,delayed release 20 mg PO BID 10/22/23 pyridostigmine bromide 60 mg tablet 60 mg PO TID PRN 10/22/23 sumatriptan succinate 100 mg tablet 100 mg PO PRN 10/22/23 cholecalciferol (vitamin D3) 25 mcg (1,000 unit) capsule (Vitamin D3) 6,000 unit PO DAILY supplement 10/26/23 amlodipine 10 mg tablet 10 mg PO DAILY #0 tabs 10/27/23 cefdinir 300 mg capsule 300 mg PO BID #6 caps 10/27/23 hydrocodone-acetaminophen 5-325mg 5mg-325mg 1 tab PO Q6H PRN PRN Pain 5-10 Or Fever > 100.7 F 2 days #8 tabs 10/27/23 loperamide 2 mg capsule 2 mg PO DAILY PRN PRN DIARRHEA #0 caps 10/27/23 melatonin 3 mg tablet 3 mg PO QHS PRN PRN Insomnia #0 tabs 10/27/23 Physical Exam Narrative GENERAL: cooperative HEENT: Atraumatic; normocephalic EYES; Anicteric, Normal Conjunctiva NECK; supple, normal thyroid, RESPIRATORY: Diminished to auscultation CARDIOVASCULAR: Regular S1 S2, GI: soft, normoactive bowel sounds, : No Renal angle tenderness; EXTREMITIES: No edema, no clubbing, MUSCULOSKELETAL: no muscle wasting NEURO: Awake; no lateralizing signs. SKIN: No Rash PSYCH; Flat affect Weight / BMI Weight Weight: 72.4 kg Body Mass Index (BMI) 28.3 ABG / Lab / Microbiology Data 10/28/23 06:32 10/28/23 06:32 Laboratory: Laboratory Results - last 24 hr 10/27/23 16:31: POC Glucose 137 H 10/28/23 06:29: POC Glucose 135 H 10/28/23 06:32: WBC 9.8, RBC 4.59, Hgb 12.6, Hct 41.5, MCV 90.4, MCH 27.5, MCHC 30.4 L, RDW Std Deviation 47.6 H, RDW Coeff of Meir 14.4, Plt Count 438, MPV 10.5, Immature Gran % (Auto) 0.400, Neut % (Auto) 69.5, Lymph % (Auto) 18.2 L, [place] % (Auto) 8.9, Eos % (Auto) 2.3, Baso % (Auto) 0.7, Absolute Neuts (auto) 6.8, Absolute Lymphs (auto) 1.79, Nucleated RBC % 0, Sodium 137, Potassium 4.7, Chloride 104, Carbon Dioxide 30.0, Anion Gap 3 L, BUN 21 H, Creatinine 0.75, Estim Creat Clear Calc 57.04, Est GFR (MDRD) Af Amer 96, Est GFR (MDRD) Non-Af 80, BUN/Creatinine Ratio 27.9 H, Glucose 159 H, Calcium 10.1 10/28/23 11:46: POC Glucose 158 H Microbiology: Microbiology 10/22/23 15:57 Urine, Catheterized Urine Culture - Final Klebsiella pneumoniae sp pneum D/C Instructions Discharge Diet: No restrictions Discharge Activity: Return to Normal Activity Call your doctor if you observe: Fever of 101 or Higher, Shortness of breath, Fainting spells and Chest pain Meaningful Use Info Meaningful Use Meaningful Use Diagnoses (Choose all that apply): None applicable Ischemic Stroke Statin Dosing Therapy Reference: STATIN DOSE THERAPY REFERENCE: * Patients > 75 years receive moderate or high dose statin therapy. * Patients 75 years or YOUNGER should receive HIGH intensity statin dose unless contraindicated. You will be required to document reason for non-treatment if statin daily dose does not meet guidelines. HIGH DOSE STATIN THERAPY DAILY Atorvastatin > than or = to 40 mg Rosuvastatin > than or = to 20 mg Amlodipine + Atorvastatin > than or = to 2.5/40 mg Ezetimibe + Simvastatin 10/80 mg Simvastatin 80mg Discharge Plan Admission Admit Date/Time: 10/23/23 13:38 Attending Provider: Jesus Landers Primary Care Provider: Beena Whitfield Consulting Providers: Mariano Glover; Itz Gamez Discharge Orders/Prescriptions Prescriptions: New amlodipine 10 mg Tablet 10 mg PO DAILY Qty: 0 0RF hydrocodone-acetaminophen 5-325 mg Tablet 1 tab PO Q6H PRN PRN (Reason: Pain 5-10 Or Fever > 100.7 F) 2 Days Qty: 8 0RF loperamide 2 mg Capsule 2 mg PO DAILY PRN PRN (Reason: DIARRHEA) Qty: 0 0RF melatonin 3 mg Tablet 3 mg PO QHS PRN PRN (Reason: Insomnia) Qty: 0 0RF cefdinir 300 mg capsule 300 mg PO BID Qty: 6 0RF Continued loratadine-pseudoephedrine 1 EACH tablet extended release 12 hr 1 ea PO BID lisinopril 20 MG tablet 20 mg PO DAILY sertraline 100 MG tablet 100 mg PO DAILY montelukast 10 MG tablet 10 mg PO DAILY albuterol sulfate 90 mcg/actuation HFA aerosol inhaler 2 puff inhalation Q4H PRN pyridostigmine bromide 60 mg tablet 60 mg PO TID PRN omeprazole 20 mg capsule,delayed release(DR/EC) 20 mg PO BID estradiol 0.5 mg tablet 0.5 mg PO DAILY budesonide-formoterol 80-4.5 mcg/actuation HFA aerosol inhaler 2 puff INHALATION BID sumatriptan succinate 100 mg tablet 100 mg PO PRN cholecalciferol (vitamin D3) [Vitamin D3] 25 mcg (1,000 unit) capsule 6,000 unit PO DAILY Discontinued hydrocodone-acetaminophen 1 EACH tablet 1 ea PO PRN PRN (Reason: Pain Or Fever) Referrals / Follow Up: Beena Whitfield PA [Primary Care Provider] - Within 2 Weeks Disposition Disposition (needs filled in before D/C Order can be placed): [facility] Facility Charges/Coding Visit Charges Inpatient E&M: 20011 Disch Hosp >30min
--- NOTE | 2023-10-28 15:02 | CASEMGMT ---
Social Work- SW met with pt to provide updates that insurance authorization has been received and pt will be transported to [facility] tomorrow. Pt is agreeable to this plan. NATALIIA Gupta
--- NOTE | 2023-10-28 15:22 | CASEMGMT ---
Discharge Planning Discharge orders and transport time sent to [facility] via [facility]. Physicians will transport patient on 10/29/23 @9:30a. SW updated. Amy Driscoll DC Planning Asst.
[2023-10-28 19:25] VITALS: PULSE 80; RESP 16
[2023-10-28 20:47] VITALS: BP 129/50; PULSE 86; RESP 18; TEMP 36.5; O2SAT 96
[2023-10-28 21:34] VITALS: BP 142/65; PULSE 85; RESP 17; TEMP 36.8; O2SAT 96
[2023-10-28 21:59] LABS: Bedside Glucose 131 mg/dL (74-106)
[2023-10-29 03:08] VITALS: BP 146/67; PULSE 78; RESP 16; TEMP 36.5; O2SAT 96
[2023-10-29] MEDS: Pyridostigmine Bromide 60 MG Tablet PO (06:03)
[2023-10-29 06:59] VITALS: PULSE 85; RESP 16
[2023-10-29] MEDS: Budesonide Respules 0.5 MG/2 ML AMPUL.NEB. INHALATION (06:59)
[2023-10-29] MEDS: Albuterol 2.5 MG/3 ML VIAL.NEB. INHALATION (06:59)
[2023-10-29 07:18] VITALS: O2SAT 95
[2023-10-29 07:40] VITALS: BP 126/70; PULSE 93; RESP 18; TEMP 37.1; O2SAT 96
[2023-10-29] MEDS: Enoxaparin 40 MG/0.4 ML Syringe SC (07:46)
[2023-10-29] MEDS: Pantoprazole Sodium 20 MG Tablet PO (07:47)
[2023-10-29] MEDS: Menthol/Lanolin/Calamine/Znox 113 GM Tube 1 APPLIC TOPICAL (07:47)
[2023-10-29] MEDS: Nystatin Powder 15gm Bottle 1 APPLIC TOPICAL (07:47)
[2023-10-29] MEDS: amLODIPine 10 MG Tablet PO (07:47)
[2023-10-29] MEDS: Estradiol 0.5 MG Tablet PO (07:47)
[2023-10-29] MEDS: Sertraline 100 MG Tablet PO (07:48)
[2023-10-29] MEDS: Montelukast 10 MG Tablet PO (07:48)
[2023-10-29] MEDS: Cholecalciferol (Vit D3) 125 MCG CAPSULE (5,000 UNITS) PO (07:48)
[2023-10-29] MEDS: Lisinopril 20 MG Tablet PO (07:48)
[2023-10-29] MEDS: HYDROcodone Bitartrate/Apap 5/325 Tablet PO (08:34)
--- NOTE | 2023-10-29 08:45 | NURSING ---
Report called to nurse Grecia at [facility] [phone]. Pt to be picked up at 9:30 this morning.
--- NOTE | 2023-10-29 08:53 | CASEMGMT ---
Social Work- Precert has been obtained.? Physician updated and pt is ready for discharge today.? 7000 convalescent form completed in [facility] and sent along with discharge orders to [facility] via [facility].? Transportation arranged with [facility] for 9:30am pickup via wheelchair van.? SW met with pt and they are agreeable to discharge plan as stated above.? Bedside nurse notified of discharge time. Pt states that she will call son to notify of d/c. Disposition:[facility]? ??, skilled level of care under convalescent stay. NATALIIA Gupta
[2023-10-29 16:26] LABS: Bedside Glucose 120 mg/dL (74-106)
== END 2023-10-29 09:20 | disposition skilled nursing facility (03) | DRG 690 ==
LOC: ED 17:04 → MS3 18:08
PROVIDERS: Hospitalist; Admitting Provider Hospitalist; Emergency Provider Emergency Medicine; PCP Physician Assistant; Visit Provider Internal Medicine
DX: N30.00 Acute cystitis without hematuria (principal); B37.31 Acute candidiasis of vulva and vagina; E11.9 Type 2 diabetes mellitus without complications; F32.A Depression, unspecified; B96.1 Klebsiella pneumoniae [K. pneumoniae] as the cause of diseases classified elsewhere; J44.9 Chronic obstructive pulmonary disease, unspecified; I16.0 Hypertensive urgency; F41.8 Other specified anxiety disorders; K21.9 Gastro-esophageal reflux disease without esophagitis; G43.709 Chronic migraine without aura, not intractable, without status migrainosus; Z66 Do not resuscitate; R53.1 Weakness; Z87.891 Personal history of nicotine dependence; G89.4 Chronic pain syndrome; Z86.69 Personal history of other diseases of the nervous system and sense organs
CPT/HCPCS: 36415; 80048; 81001; 82962; 83036; 83735; 84100; 85025; 85027; 87077; 87086; 87088; 87186; 93005; 94640; 97110; 97163; 97166; 97530; 97535; 99285; J7030; J7050; P9612; A4216; J2405

== ENCOUNTER → 2023-11-15 | Outpatient (REF) | payer MEDICARE, SELFPAY ==
[2023-11-15 08:57] LABS: Hematocrit 39.7 % (37-47); Hemoglobin 12.5 g/dL (12.0-15.0); Mean Corp Hgb Conc 31.5 g/dL (32-36); Mean Platelet Vol. 10.9 fl (6.2-12.0); Platelet Count 444 K/mm3 (150-450); RBC Distribution Width CV 13.3 % (11.6-14.6); RBC Distribution Width SD 43.6 fl (35.1-43.9); Red Blood Count 4.46 M/mm3 (4.2-5.4); White Blood Count 9.6 K/mm3 (4.4-11.0)
[2023-11-15 09:38] LABS: Anion Gap 6 (5-15); BUN 11 mg/dL (7-18); BUN/Creat Ratio 14.5 RATIO (10-20); Calcium,Total 10.3 mg/dL (8.5-10.1); Chloride 106 mmol/L (98-107); Creatinine, Serum 0.76 mg/dL (0.55-1.02); EST Glomerular Filtration Rate 78 mL/min (>60); Est Glom Filt Rate - Afr Amer 95 mL/min (>60); Glucose 142 mg/dL (74-106); Potassium 3.8 mmol/L (3.5-5.1); Sodium Level 138 mmol/L (136-145)
== END ==
LOC: OLS.WCC 04:00
PROVIDERS: PCP Physician Assistant; Referring Provider Family Medicine; Visit Provider Family Medicine
DX: J44.9 Chronic obstructive pulmonary disease, unspecified (principal); I10 Essential (primary) hypertension; G70.01 Myasthenia gravis with (acute) exacerbation; N30.00 Acute cystitis without hematuria; M79.7 Fibromyalgia
CPT/HCPCS: 36415; 80048; 85027

== ENCOUNTER → 2024-02-14 | Outpatient (REF) | payer MEDICARE, SELFPAY ==
[2024-02-14 08:47] LABS: Hematocrit 38.4 % (37-47); Hemoglobin 11.7 g/dL (12.0-15.0); Mean Corp Hgb Conc 30.5 g/dL (32-36); Mean Corpuscular Hgb 27.5 pg (27.0-32.0); Mean Corpuscular Volume 90.4 fL (81-99); Platelet Count 354 K/mm3 (150-450); RBC Distribution Width CV 14.5 % (11.6-14.6); RBC Distribution Width SD 48.5 fl (35.1-43.9); Red Blood Count 4.25 M/mm3 (4.2-5.4)
[2024-02-14 09:05] LABS: Vitamin D,25 Hydroxy 46.5 ng/mL
[2024-02-14 09:46] LABS: Anion Gap 9 (5-15); BUN 21 mg/dL (7-18); BUN/Creat Ratio 27.2 RATIO (10-20); Calcium,Total 9.5 mg/dL (8.5-10.1); Chloride 108 mmol/L (98-107); Creatinine, Serum 0.77 mg/dL (0.55-1.02); EST Glomerular Filtration Rate 77 mL/min (>60); Est Glom Filt Rate - Afr Amer 93 mL/min (>60); Glucose 90 mg/dL (74-106); Potassium 4.2 mmol/L (3.5-5.1); Sodium Level 141 mmol/L (136-145)
== END ==
LOC: OLS.WCC 05:00
PROVIDERS: PCP Physician Assistant; Visit Provider Family Medicine
DX: J44.9 Chronic obstructive pulmonary disease, unspecified (principal); I10 Essential (primary) hypertension; Z79.899 Other long term (current) drug therapy
CPT/HCPCS: 36415; 80048; 82306; 85027

== ENCOUNTER → 2024-05-16 05:00 | Outpatient (REF) | payer MEDICARE, SELFPAY ==
[2024-05-16 07:36] LABS: Hematocrit 37.5 % (37-47); Hemoglobin 11.8 g/dL (12.0-15.0); Mean Corp Hgb Conc 31.5 g/dL (32-36); Mean Corpuscular Hgb 28.2 pg (27.0-32.0); Mean Corpuscular Volume 89.7 fL (81-99); Mean Platelet Vol. 10.8 fl (6.2-12.0); Platelet Count 381 K/mm3 (150-450); RBC Distribution Width SD 46.2 fl (35.1-43.9); Red Blood Count 4.18 M/mm3 (4.2-5.4)
[2024-05-16 07:49] LABS: Anion Gap 2 (5-15); BUN 17 mg/dL (7-18); BUN/Creat Ratio 28.5 RATIO (10-20); Calcium,Total 9.3 mg/dL (8.5-10.1); Chloride 110 mmol/L (98-107); EST Glomerular Filtration Rate 104 mL/min (>60); Est Glom Filt Rate - Afr Amer 126 mL/min (>60); Glucose 96 mg/dL (74-106); Potassium 3.7 mmol/L (3.5-5.1); Sodium Level 139 mmol/L (136-145)
== END ==
LOC: OLS.WCC 05:00
PROVIDERS: PCP Physician Assistant; Visit Provider Family Medicine
DX: I10 Essential (primary) hypertension (principal); Z79.899 Other long term (current) drug therapy; G70.01 Myasthenia gravis with (acute) exacerbation
CPT/HCPCS: 36415; 80048; 85027

== ENCOUNTER → 2024-08-14 | Outpatient (REF) | payer MEDICARE, MEDICAID, SELFPAY ==
[2024-08-14 08:58] LABS: Hematocrit 37.5 % (37-47); Mean Corpuscular Hgb 29.6 pg (27.0-32.0); Mean Corpuscular Volume 92.4 fL (81-99); Mean Platelet Vol. 10.8 fl (6.2-12.0); Platelet Count 415 K/mm3 (150-450); RBC Distribution Width CV 12.9 % (11.6-14.6); RBC Distribution Width SD 43.5 fl (35.1-43.9); Red Blood Count 4.06 M/mm3 (4.2-5.4); White Blood Count 10.1 K/mm3 (4.4-11.0)
[2024-08-14 23:55] LABS: Anion Gap 9 (5-15); BUN 23 mg/dL (4-19); Calcium,Total 9.4 mg/dL (7.6-11.0); Carbon Dioxide 21.7 mmol/L (21.0-32.0); Chloride 107 mmol/L (98-108); EST Glomerular Filtration Rate 76 (>60); Glucose 74 mg/dL (70-99); Potassium 5.4 mmol/L (3.3-5.1); Sodium Level 138 mmol/L (133-145); Vitamin D,25 Hydroxy 72.2 ng/mL (30-100)
== END ==
LOC: OLS.WCC 05:00
PROVIDERS: PCP Physician Assistant; Visit Provider Family Medicine
DX: Z79.899 Other long term (current) drug therapy (principal); E55.9 Vitamin D deficiency, unspecified
CPT/HCPCS: 36415; 80048; 82306; 85027

== ENCOUNTER → 2024-08-29 | Outpatient (REF) | payer MEDICARE, MEDICAID, SELFPAY ==
[2024-08-29 08:51] LABS: Anion Gap 8 (5-15); BUN 19 mg/dL (4-19); BUN/Creat Ratio 24.8 RATIO (10-20); Calcium,Total 9.6 mg/dL (7.6-11.0); Carbon Dioxide 23.4 mmol/L (21.0-32.0); Chloride 105 mmol/L (98-108); Creatinine, Serum 0.77 mg/dL (0.70-1.20); EST Glomerular Filtration Rate 79 (>60); Glucose 103 mg/dL (70-99); Potassium 5.5 mmol/L (3.3-5.1); Sodium Level 137 mmol/L (133-145)
== END ==
LOC: OLS.WCC 05:00
PROVIDERS: PCP Physician Assistant; Visit Provider Family Medicine
DX: I10 Essential (primary) hypertension (principal)
CPT/HCPCS: 36415; 80048

== ENCOUNTER → 2024-09-12 | Outpatient (REF) | payer MEDICARE, MEDICAID, SELFPAY ==
[2024-09-12 07:12] LABS: Anion Gap 9 (5-15); BUN 23 mg/dL (4-19); BUN/Creat Ratio 28.3 RATIO (10-20); Calcium,Total 9.4 mg/dL (7.6-11.0); Carbon Dioxide 24.4 mmol/L (21.0-32.0); Chloride 106 mmol/L (98-108); Creatinine, Serum 0.83 mg/dL (0.70-1.20); EST Glomerular Filtration Rate 73 (>60); Glucose 114 mg/dL (70-99); Potassium 4.1 mmol/L (3.3-5.1); Sodium Level 139 mmol/L (133-145)
== END ==
LOC: OLS.WCC 04:00
PROVIDERS: PCP Physician Assistant; Referring Provider Family Medicine; Visit Provider Family Medicine
DX: G70.01 Myasthenia gravis with (acute) exacerbation (principal); Z79.899 Other long term (current) drug therapy
CPT/HCPCS: 36415; 80048

== ENCOUNTER → 2024-11-15 | Outpatient (REF) | payer SELFPAY ==
--- OUTSIDE RECORDS SUMMARY | 2024-11-15 04:32 | XMS RPT_ITS | CCD ---
Author Organization [facility] CliniSywy Care Team Providers Care Acid Polymerization Operator Name Role Phone Beena Whitfield PA-C Primary Care Provider [phone] Beena WHITFIELD Primary Care Unavailable Beena WHITFIELD Attending Unavailable Beena WHITFIELD Attending Unavailable SELF Referring Unavailable Beena WHITFIELD Primary Care Unavailable Beena WHITFIELD Referring Unavailable Beena WHITFIELD Primary Care Unavailable Beena WHITFIELD Attending Unavailable Beena WHITFIELD Primary Care Unavailable SELF Referring Unavailable LIZZIE CARDOZA Attending Unavailable Beena WHITFIELD Primary Care Unavailable Beena WHITFIELD Referring Unavailable Beena WHITFIELD Primary Care Unavailable Beena Nash Primary Care Provider [phone] Ishaan Bernabe MD Attending Provider Unavailable Ishaan Bernabe MD Referring Provider Unavailable Beena Nash Primary Care Provider [phone] Ishaan Bernabe MD Attending Provider Unavailable Beena Nash Primary Care Unavailable Agyepong, Mariano Admitting Unavailable Agyetamiag, Mariano Consulting Unavailable Itz Gamez Attending Unavailable Itz Gamez Consulting Unavailable Agyepong, Mariano Admitting Unavailable Agyepong, Mariano Consulting Unavailable Itz Gamez Attending Unavailable Beena Nash Primary Care Unavailable Itz Gamez Consulting Unavailable EyadgMariano Attending Unavailable Jesus Landers Attending Unavailable Jesus Landers Consulting Unavailable Ishaan Abraham Attending Unavailable Beena Nash Primary Care Unavailable Ishaan Abraham Referring Unavailable Ishaan Abraham Attending Unavailable Beena Nash Primary Care Unavailable Agyepong, Mariano Admitting Unavailable Agadiliag, Mariano Consulting Unavailable Jesus Landers Attending Unavailable Beena Nash Primary Care Unavailable Itz Gamez Consulting Unavailable Ishaan Abraham Referring Unavailable Ishaan Abraham Attending Unavailable Beena Nash Primary Care Unavailable Ishaan Abraham Attending Unavailable Beena Nash Primary Care Unavailable Ishaan Abraham Attending Unavailable Beena Nash Primary Care Unavailable Ishaan Abraham Attending Unavailable Beena Nash Primary Care Unavailable Allergies Allergy Classification Reported Allergen(s) Allergy Type Date of Onset Reaction(s) Facility (1 source) HORSE DANDER; Translations: [HORSE DANDER] Propensity to adverse reactions to drug (disorder) 9 [facility] Repository (3 sources) Adrenergic Beta-Antagonists Allergy to substance 4 Other [facility] Comment on above: M YASTHENIA GRAVIS (3 sources) Horse/Equine Containing Products Propensity to adverse reactions 4 NEEDS FOLLOW-UP [facility] (4 sources) Sugars, Metabolically Active; Translations: [Sugars, Metabolically Active] Propensity to adverse reactions 4 Unknown [facility] (1 source) Adrenergic Beta-Antagonists Drug allergy (disorder) 4 [facility] Repository (1 source) Horse/Equine Containing Products Drug allergy (disorder) 4 [facility] Repository Medications Current Medications Medication Drug Class(es) Dates Sig (Normalized) Sig (Original) 8 hr acetaminophen 650 mg extended release oral tablet (20 sources) take 1 tablet by mouth every eight hours as needed acetaminophen 650 mg CR tablet Take 650 mg by mouth every 8 hours as needed. 0 Active Comment on above: Take 650 mg by mouth every 8 hours as needed. acetaminophen 325 mg / HYDROcodone bitartrate 5 mg oral tablet (20 sources) Opioid Agonist Start: 10-27-2023 Hydrocodone-Acetami nophen 5-325 mg Tablet Active 1 {tbl} PO EVERY 6 HOURS NEEDED as needed for Pain 5-10 Or Fever > 100.7 F 8 2 October 27, 2023 Start: 07-13-2023 End: 10-11-2023 take 1 tablet by mouth every six hours as needed for pain HYDROcodone-acetaminophen (NORCO) 5-325 mg per tablet Indications: Chronic pain of both shoulders , Chronic hand pain, unspecified laterality Take 1 tablet by mouth every 6 hours as needed for pain for up to 90 days. 33 tablet 0 07/13/2023 10/11/2023 Active Start: 07-03-2021 End: 05-31-2023 take 1 tablet by mouth every six hours as needed for pain HYDROcodone-acetaminophen (NORCO) 5-325 mg per tablet Indications: Chronic pain of both shoulders , Chronic hand pain, unspecified laterality Take 1 tablet by mouth every 6 hours as needed for pain for up to 90 days. 33 tablet 0 03/02/2023 05/31/2023 Active Start: 05-04-2019 End: 10-27-2023 Hydrocodone-Acetaminophen 1 EACH tablet Discontinued 1 NMA PO NEEDED as needed for Pain Or Fever May 04, 2019 1:00am October 27, 2023 8:21am Comment on above: Take 1 tablet by lillian th every 6 hours as needed for pain. Take 1 tablet by lillian th every 6 hours as needed for pain for up to 90 days. [id number] 200 actuat albuterol 0.09 mg/actuat metered dose inhaler (20 sources) beta2-Adrenergic Agonist Start: 10-22-2023 Albuterol Sulfate 90 mcg/actuation HFA aerosol inhaler Active 2 NMA INHALATION EVERY 4 HOURS NEEDED October 22, 2023 12:00am Start: 07-03-2021 End: 07-13-2023 take 2 puff(s) by inhalation every four hours as needed albuterol HFA (VENTOLIN HFA) 90 mcg/actuation inhaler Indications: Chronic asthmatic bronchitis (HCC) Inhale 2 Puffs as instructed every 4 hours as needed. 18 g 2 07/13/2023 Active Comment on above: Inhale 2 Puffs as in structed every 4 hours as needed. amLODIPine 10 mg oral tablet (3 sources) Dihydropyridine Calcium Channel Lyndsey Start: 10-27-19 24 take 1 tablet by mouth once daily Amlodipine 10 mg Tablet Active 10 mg PO DAILY 0 October 27, 2023 12:00am atropine sulfate 0.025 mg / diphenoxylate hydrochloride 2.5 mg oral tablet (20 sources) Anticholinergic, Cholinergic Muscarinic Antagonist, Antidiarrheal Start: 07-03-19 End: 08-05-19 23 take 1 tablet by mouth four times daily as needed diphenoxylate-atro pine (LOMOTIL) 2.5-0.025 mg per tablet Indications: Chronic diarrhea Take 1 tablet by mouth four times daily as needed for up to 60 days. 60 tablet 3 06/05/2022 Active Comment on above: Take 1 tablet by lillian th four times daily as needed for up to 60 days. Budesonide-Formoterol (20 sources) Corticosteroid, beta2-Adrenergic Agonist Start: 10-22-19 Budesonide-Formote rol 80-4.5 mcg/actuation HFA aerosol inhaler Active 2 NMA INHALATION TWICE A DAY October 22, 2023 12:00am Start: 03-02-2023 take 2 puff(s) by in halation twice daily budesonide-formoterol (SYMBICORT) 80-4.5 mcg/actuation inhaler Inhale 2 Puffs as instructed two times a day. 1 Each 03/02/2023 Active Start: 03-02-2022 End: 03-02-2023 take 2 puff(s) by inhalation twice daily budesonide-formoterol (SYMBICORT) 80-4.5 mcg/actuation inhaler Inhale 2 Puffs as instructed twice daily. 1 Each 5 03/02/2022 03/02/2023 Discontinued Start: 03-02-2022 take 2 puff(s) by in halation twice daily budesonide-formoterol (SYMBICORT) 80-4.5 mcg/actuation inhaler Inhale 2 Puffs as instructed twice daily. 1 Each 5 03/02/2022 Active Start: 03-02-2022 take 2 puff(s) by in halation twice daily budesonide-formoterol (SYMBICORT) 80-4.5 mcg/actuation inhaler Inhale 2 Puffs as instructed twice daily. 1 Each 11 03/02/2022 Active Start: 07-03-2021 End: 03-02-2022 take 2 puff(s) by inhalation twice daily budesonide-formoterol (SYMBICORT) 80-4.5 mcg/actuation inhaler Inhale 2 Puffs as instructed twice daily. 1 Each 5 07/03/2021 03/02/2022 Discontinued Start: 07-03-2021 take 2 puff(s) by in halation twice daily budesonide-formoterol (SYMBICORT) 80-4.5 mcg/actuation inhaler Inhale 2 Puffs as instructed twice daily. 1 Each 5 07/03/2021 Active Comment on above: Inhale 2 Puffs as in structed twice daily. Inhale 2 Puffs as in structed two times a day. camphor 0.031 mg/mg / menthol 0.06 mg/mg / methyl salicylate 0.1 mg/mg medicated patch (20 sources) camphor-methyl salicyl-menthol (SALONPAS) 3.1-10-6 % ptmd Apply to affected area. As needed 0 Active Comment on above: Apply to affected ar ea. As needed cefdinir 300 mg oral capsule (3 sources) Cephalosporin Antibacterial Start: take 1 capsule by mouth twice daily Cefdinir 300 mg capsule Active 300 mg PO TWICE A DAY October 27, 2023 12:00am cholecalciferol 0.025 mg oral capsule (20 sources) Vitamin D Start: take 1 capsule by mouth once daily Cholecalciferol (Vitamin D3) (Vitamin D3) 25 mcg (1,000 unit) capsule Active 6000 U PO DAILY October 26, 2023 12:00am take 1 capsule by mouth once barbara ly Cholecalciferol, Vitamin D3, 50 mcg (2,000 unit) cap Take 6,000 Units by mouth once daily. 0 Active take 3 capsules by mouth once da kaleb Cholecalciferol, Vitamin D3, (VITAMIN D-3) 2,000 unit cap Take 6,000 Units by mouth once daily. 0 Active Comment on above: Take 6,000 Units by mouth once daily. cromolyn sodium 40 mg/ml ophthalmic solution (20 sources) Mast Cell Stabilizer Start: 01-25-20 End: 11-14-19 Cromolyn Sodium (CROLOM) 4 % ophthalmic solution Indications: Chronic asthmatic bronchitis (HCC) Use 1-2 Drops in both eyes four times daily. 10 mL 3 11/13/2022 Active Comment on above: Use 1-2 Drops in bot h eyes four times daily. dexamethasone 1 mg/ml / neomycin 3.5 mg/ml / polymyxin b [id number] unt/ml ophthalmic suspension (20 sources) Aminoglycoside Antibacterial, Polymyxin-class Antibacterial, Corticosteroid Start: 02-23-20 take 3.5 mg into the eye(s) three to four times daily as needed neomycin/polymyxin b/dexametha(MAXITR OL 3.5 MG/ML-10,000 UNIT/ML-0.1% EYE DROPS,SUSPENSION) 1-2 drops 3-4 times a day as needed for external otitis 10 mL 1 02/22/2023 Active Start: 04-01-2021 End: 11-13-2021 take 3.5 mg into the eye(s) three to four times daily as needed neomycin/polymyxin b/dexametha(MAXITROL 3.5 MG/ML-10,000 UNIT/ML-0.1% EYE DROPS,SUSPENSION) 1-2 drops 3-4 times a day as needed for external otitis 10 mL 1 11/13/2021 Active Comment on above: 1-2 drops 3-4 times a day as needed for external otitis estradiol 0.5 mg oral tablet (20 sources) Estrogen Start: 10-22-2023 take 1 tablet by mouth once daily Estradiol 0.5 mg tablet Active 0.5 mg PO DAILY October 22, 2023 12:00am Start: 07-03-2021 End: 07-13-2023 take 1 tablet by mouth once daily Estradiol (ESTRACE) 0.5 mg tablet Take 1 tablet by mouth once daily. 90 tablet 1 07/13/2023 Active Comment on above: Take 1 tablet by lillian once daily. fluticasone propionate 0.05 mg/actuat metered dose nasal spray (20 sources) Corticosteroid Start: End: 3 take 2 spray(s) nasal route once daily fluticasone (FLONASE) 50 mcg/actuation nasal spray Indications: Chronic asthmatic bronchitis (HCC) Use 2 Sprays in each nostril once daily. 18.2 mL 3 09/03/2022 Active Comment on above: Use 2 Sprays in each nostril once daily. lisinopril 10 mg oral tablet (20 sources) Angiotensin Converting Enzyme Inhibitor Start: 4 take 1 tablet by mouth once daily lisinopril (ZESTRIL) 10 mg tablet Take 1 tablet by mouth once daily. 90 tablet 1 07/13/2023 Active Start: 05-04-2019 End: 07-31-2022 take 1 tablet by mouth once daily Lisinopril 20 MG tablet Active 20 mg PO DAILY May 04, 2019 1:00am Comment on above: Take 1 tablet by lillian th once daily. loperamide hydrochloride 2 mg oral capsule (3 sources) Opioid Agonist Start: 4 take 1 capsule by mouth once daily as needed for diarrhea Loperamide 2 mg Capsule Active 2 mg PO DAILY NEEDED as needed for DIARRHEA 0 October 27, 2023 12:00am 12 hr loratadine 5 mg / pseudoephedrine sulfate 120 mg extended release oral tablet (20 sources) alpha-Adrenergic Agonist Start: 2 End: 3 take 1 tablet by mouth twice daily CLARITIN-D 12 HOUR 5-120 mg per tablet Take 1 tablet by mouth two times a day. No generic requesting brand name 60 tablet 3 03/31/2023 Active Start: 05-27-2021 take 1 tablet by lillian th twice daily CLARITIN-D 12 HOUR 5-120 mg per tablet Take 1 tablet by mouth twice daily. No generic requesting brand name 60 tablet 3 05/27/2021 Active Start: 05-04-2019 take 1 tablet by lillian th every twelve hours Loratadine-Pseudoephedrine 1 EACH tablet extended release 12 hr Active 1 NMA PO TWICE A DAY May 04, 2019 1:00am Comment on above: Take 1 tablet by lillian twice daily. No generic requesting brand name Take 1 tablet by lillian two times a day. No generic requesting brand name melatonin 3 mg oral tablet (3 sources) Start: 4 take 1 tablet by mouth at bedtime as needed Melatonin 3 mg Tablet Active 3 mg PO AT BEDTIME NEEDED as needed for Insomnia 0 October 27, 2023 12:00am metFORMIN hydrochloride 500 mg oral tablet (20 sources) Biguanide Start: 0 take 1 tablet by mouth twice daily at mealtime metFORMIN (GLUCOPHAGE) 500 mg tablet Indications: Controlled type 2 diabetes mellitus without complication, without long-term current use of insulin (HCC) Take 1 tablet by mouth twice daily with meals. . 180 tablet 1 02/29/2020 Active Start: 05-04-2019 End: 10-22-2023 take 1 tablet by mouth once daily Metformin 500 MG tablet Discontinued 500 mg PO DAILY May 04, 2019 1:00am October 22, 2023 12:04pm Comment on above: Take 1 tablet by lillian th twice daily with meals. . montelukast 10 mg oral tablet (20 sources) Leukotriene Receptor Antagonist Start: 9 End: 4 take 1 tablet by mouth once daily Montelukast 10 MG tablet Active 10 mg PO DAILY May 04, 2019 1:00am Comment on above: Take 1 tablet by lillian th daily at bedtime. naproxen sodium 220 mg oral tablet (20 sources) Nonsteroidal Anti-inflammatory Drug take 1 tablet by mouth twice daily at mealtime naproxen sodium (ANAPROX) 220 mg tablet Take 220 mg by mouth twice daily with meals. 0 Active Comment on above: Take 220 mg by mouth twice daily with meals. omeprazole 20 mg delayed release oral capsule (20 sources) Proton Pump Inhibitor Start: 1 End: 4 take 1 capsule by mouth twice daily Omeprazole 20 mg capsule,delayed release(DR/EC) Active 20 mg PO TWICE A DAY October 22, 2023 12:00am Start: 05-04-2019 End: 10-22-2023 take 1 capsule by mouth once daily Omeprazole 10 MG capsule Discontinued 10 mg PO DAILY May 04, 2019 1:00am October 22, 2023 11:54am Comment on above: Take 1 capsule by [facility] twice daily. Take 1 capsule by [facility] two times a day. ondansetron 4 mg oral tablet (20 sources) Serotonin-3 Receptor Antagonist Start: 3 End: 4 take 1 tablet by mouth every eight hours as needed for nausea and nausea ondansetron (ZOFRAN) 4 mg tablet Indications: Nausea Take 1 tablet by mouth every 8 hours as needed. 30 tablet 1 07/13/2023 Active Start: 07-03-2021 End: 03-02-2023 take 1 tablet by mouth every eight hours as needed for nausea and nausea ondansetron (ZOFRAN) 4 mg tablet Indications: Nausea Take 1 tablet by mouth every 8 hours as needed. 30 tablet 1 03/02/2023 Active Comment on above: Take 1 tablet by lillian every 8 hours as needed. OTC PRODUCT (20 sources) OTC PRODUCT Inst aflex Advanced Joint Support (collagen, turmeric, resveratrol, black peper, bosellia, hyaluronic acid) 0 Active Comment on above: Instaflex Advanced J oint Support (collagen, turmeric, resveratrol, black peper, bosellia, hyaluronic acid) phenylephrine hydrochloride 25 mg/ml ophthalmic solution (1 source) alpha-1 Adrenergic Agonist Start: 03-10-20 End: 03-11-20 PHENYLephrine 2.5 % 1 Drop (AK-DILATE, JEFFREY-SYNEPHRINE) proparacaine hydrochloride 5 mg/ml ophthalmic solution (1 source) Local Anesthetic Start: 03-10-20 End: 03-11-20 proparacaine 0.5 % 1 Drop (ALCAINE) pyridostigmine bromide 60 mg oral tablet (20 sources) Start: 10-22-19 take 1 tablet by mouth three times daily as needed Pyridostigmine [place] 60 mg tablet Active 60 mg PO 3 TIMES DAILY NEEDED October 22, 2023 12:00am Start: 04-01-2021 End: 07-13-2023 take 1 tablet by mouth three times daily as needed pyridostigmine (MESTINON) 60 mg tablet Indications: Myasthenia gravis (HCC) Take 1 tablet by mouth three times a day as needed. 90 tablet 5 07/13/2023 Active Start: 05-04-2019 End: 10-22-2023 take 1 tablet by mouth once daily Pyridostigmine [place] 180 MG tablet extended release Discontinued 180 mg PO DAILY May 04, 2019 1:00am October 22, 2023 11:54am Comment on above: Take 1 tablet by lillian th three times daily as needed. Take 1 tablet by lillian th three times a day as needed. sertraline 100 mg oral tablet (20 sources) Serotonin Reuptake Inhibitor Start: 05-04-2019 End: 03-11-2023 take 1 tablet by mouth once daily Sertraline 100 MG tablet Active 100 mg PO DAILY May 04, 2019 1:00am Comment on above: Take 1 tablet by lillian th once daily. SUMAtriptan 100 mg oral tablet (20 sources) Serotonin-1b and Serotonin-1d Receptor Agonist Start: 10-22-2023 Sumatriptan Succinate 100 mg tablet Active 100 mg PO NEEDED October 22, 2023 12:00am Start: 02-22-2023 End: 07-13-2023 SUMAtriptan (IMITREX) 100 mg tablet Indications: Migraine with aura, not intractable, without status migrainosus Take 1 tablet (100 mg) by mouth as needed. 18 tablet 3 07/13/2023 Active Start: 05-27-2021 End: 09-03-2022 SUMAtriptan (IMITREX) 100 mg tablet Indications: Migraine with aura, not intractable, without status migrainosus Take 1 tablet by mouth as needed. 18 tablet 3 09/03/2022 Active Comment on above: Take 1 tablet by lillian as needed. Take 1 tablet (100 m g) by mouth as needed. tropicamide 10 mg/ml ophthalmic solution (1 source) Anticholinergic Start: 03-10-2023 End: 03-11-2023 tropicamide 1 % 1 Drop (MYDRIACYL) Completed/Discontinued Medications Medication Drug Class(es) Dates Sig (Normalized) Sig (Original) cephalexin 500 mg oral capsule (3 sources) Cephalosporin Antibacterial Start: 05-04-2019 End: 10-22-2023 take 1 capsule by mouth every twelve hours Cephalexin 500 MG capsule Discontinued 500 mg PO EVERY 12 HOURS May 04, 2019 1:00am October 22, 2023 12:05pm dextromethorphan hydrobromide 3 mg/ml / promethazine hydrochloride 1.25 mg/ml oral solution (20 sources) Phenothiazine, Uncompetitive Q-thvwwr-C-aspartat e Receptor Antagonist, Sigma-1 Agonist Start: 09-11-2021 End: 07-06-2022 take 5 mL by mouth every six hours as needed Promethazine-DM (PHENERGAN-DM) 6.25-15 mg/5 mL syrup Take 5 mL by mouth four times daily as needed (not in same 12h as Clariten D). 120 mL 1 07/07/2022 Active Comment on above: Take 5 mL by mouth f our times daily as needed. Take 5 mL by mouth f our times daily as needed (not in same 12h as Clariten D). estrogens, conjugated (penitentiary) 0.3 mg oral tablet (3 sources) Estrogen Start: 05-04-2019 End: 10-22-2023 take 1 tablet by mouth once daily Conjugated Estrogens 0.3 MG tablet Discontinued 0.3 NMA PO DAILY May 04, 2019 1:00am October 22, 2023 11:54am predniSONE 20 mg oral tablet (10 sources) Start: 09-11-2021 End: 03-01-2022 take 1 tablet by mouth once daily predniSONE (DELTASONE) 20 mg tablet Take 1 tablet by mouth once daily. 5 tablet 0 09/11/2021 03/01/2022 Discontinued Comment on above: Take 1 tablet by lillian th once daily. Problems Active Problems Problem Classification Problem Date Documented Date Episodic/Chronic Anxiety disorders (20 sources) Anxiety; Translations: [Anxiety disorder, unspecified] Onset: 03-01-2022 12-05-2018 Chronic Cataract (1 source) Bilateral senile combined form cataracts of eyes; Translations: [Combined forms of age-related cataract, bilateral] 03-10-2023 Chronic Chronic obstructive pulmonary disease and bronchiectasis (20 sources) Chronic asthmatic bronchitis; Translations: [Chronic obstructive pulmonary disease, unspecified] Onset: 12-05-2018 12-05-2018 Chronic Delirium, dementia, and amnestic and other cognitive disorders (1 source) Senile asthenia; Translations: [Age-related physical debility] 07-13-2023 Chronic Diabetes mellitus with complications (20 sources) Type 2 diabetes mellitus; Translations: [Type 2 diabetes mellitus with diabetic neuropathy, unspecified] Onset: 09-07-2019 09-07-2019 Chronic Diabetes mellitus without complication (1 source) Diabetes mellitus type 2 without retinopathy; Translations: [Type 2 diabetes mellitus without complications] 03-10-2023 Chronic Diseases of white blood cells (2 sources) Neutrophilia; Translations: [Disorder of white blood cells, unspecified] Onset: 12-01-2022 12-01-2022 Chronic Disorders of lipid metabolism (20 sources) Hyperlipidemia; Translations: [Hyperlipidemia, unspecified] Onset: 03-01-2022 12-05-2018 Chronic Esophageal disorders (20 sources) Gastroesophageal reflux disease; Translations: [Gastro-esophageal reflux disease without esophagitis] Onset: 12-05-2018 12-05-2018 Chronic Essential hypertension (20 sources) Essential hypertension; Translations: [Essential (primary) hypertension] Onset: 12-05-2018 12-05-2018 Chronic Headache; including migraine (8 sources) Migraine with aura; Translations: [Migraine with aura, not intractable, without status migrainosus] Chronic Hypertension with complications and secondary hypertension (4 sources) Hypertensive urgency ; Translations: [Hypertensive urgency] Onset: 10-29-2023 11-06-2023 Chronic Immunizations and screening for infectious disease (5 sources) Vaccination needed; Translations: [Encounter for immunization] Episodic Mood disorders (20 sources) Major depression in partial remission; Translations: [Major depressive disorder, single episode, in partial remission] Onset: 12-05-2018 12-05-2018 Chronic Nausea and vomiting (5 sources) Nausea; Translations: [Nausea] Episodic Neoplasms of unspecified nature or uncertain behavior (1 source) Thrombocytosis; Translations: [Thrombocytosis] Onset: 12-01-2022 Chronic Neoplasms of unspecified nature or uncertain behavior (1 source) Thrombocytosis; Translations: [Thrombocytosis] 12-01-2022 Episodic Noninfectious gastroenteritis (3 sources) Chronic diarrhea; Translations: [Noninfective gastroenteritis and colitis, unspecified] Episodic Nutritional deficiencies (12 sources) Vitamin D deficiency; Translations: [Vitamin D deficiency, unspecified] Onset: 03-02-2023 Chronic Other aftercare (2 sources) Other manager long term care (current) drug therapy; Translations: [Other [facility] (current) drug therapy] Onset: 05-29-2024 Episodic Other connective tissue disease (20 sources) Fibromyalgia; Translations: [Fibromyalgia] 12-05-2018 Episodic Other connective tissue disease (7 sources) Hand pain; Translations: [Pain in unspecified hand] Episodic Other connective tissue disease (1 source) Falls; Translations: [Repeated falls] Episodic Other ear and sense organ disorders (10 sources) Bilateral external auditory canal chronic otitis externa; Translations: [Unspecified chronic otitis externa, bilateral] Onset: 06-02-2023 Chronic Other ear and sense organ disorders (1 source) Unspecified chronic otitis externa, bilateral; Translations: [Chronic otitis externa of both ears, unspecified type] Onset: 03-02-2023 Chronic Other eye disorders (1 source) Tear film insufficiency; Translations: [Dry eye syndrome of bilateral lacrimal glands] 03-10-2023 Episodic Other nervous system disorders (20 sources) Myasthenia gravis; Translations: [Myasthenia gravis without (acute) exacerbation] 12-05-2018 Chronic Other nervous system disorders (20 sources) Peripheral nerve disease ; Translations: [Polyneuropathy, unspecified] 12-05-2018 Chronic Other nervous system disorders (6 sources) Polyneuropathy associated with another disorder; Translations: [Polyneuropathy in diseases classified elsewhere] Chronic Other nervous system disorders (1 source) Polyneuropathy in diseases classified elsewhere; Translations: [Polyneuropathy associated with underlying disease (HCC)] Onset: 12-05-2018 Chronic Other nervous system disorders (1 source) Myasthenia gravis without (acute) exacerbation; Translations: [Myasthenia gravis (HCC)] Onset: 12-05-2018 Chronic Other nervous system disorders (1 source) Other chronic pain; Translations: [Chronic left shoulder pain] Onset: 12-01-2022 Chronic Other nervous system disorders (3 sources) Unable to walk; Translations: [Difficulty in walking, not elsewhere classified] 10-22-2023 Chronic Other nervous system disorders (2 sources) Myasthenia gravis with (acute) exacerbation; Translations: [Myasthenia gravis with (acute) exacerbation] Onset: 05-29-2024 Chronic Other nervous system disorders (1 source) Abnormal gait; Translations: [Unspecified abnormalities of gait and mobility] Episodic Other nervous system disorders (3 sources) H/O: musculoskeletal disease; Translations: [Personal history of other diseases of the nervous system and sense organs] 10-22-2023 Episodic Other non-traumatic joint disorders (1 source) Shoulder pain; Translations: [Pain in right shoulder] Episodic Other non-traumatic joint disorders (6 sources) Bilateral chronic pain of upper limbs; Translations: [Pain in right shoulder] Episodic Other non-traumatic joint disorders (1 source) Chronic pain of left upper limb; Translations: [Pain in left shoulder] 12-01-2022 Episodic Other screening for suspected conditions (not mental disorders or infectious disease) (2 sources) Patient encounter status; Translations: [Encounter for screening mammogram for malignant neoplasm of breast] Episodic Other upper respiratory disease (20 sources) Allergic rhinitis; Translations: [Other allergic rhinitis] Onset: 10-07-2021 Chronic Other upper respiratory disease (1 source) Other allergic rhinitis; Translations: [Other allergic rhinitis] Onset: 10-07-2021 Chronic Residual codes; unclassified (3 sources) Postmenopausal state; Translations: [Asymptomatic menopausal state] 12-01-2022 Episodic Past or Other Problems Problem Classification Problem Date Documented Date Episodic/Chronic Deficiency and other anemia (20 sources) Iron deficiency anemia; Translations: [Iron deficiency anemia, unspecified] Onset: 07-15-2020 07-15-2020 Episodic Inflammation; infection of eye (except that caused by tuberculosis or sexually transmitteddisease) (20 sources) Allergic conjunctivitis of bilateral eyes; Translations: [Acute atopic conjunctivitis, bilateral] Onset: 10-07-2021 Episodic Malaise and fatigue (5 sources) Fatigue; Translations: [Other fatigue] Onset: 10-29-2023 07-13-2023 Episodic Other connective tissue disease (2 sources) Fibromyalgia; Translations: [Fibromyalgia] Onset: 12-05-2018 Episodic Other nervous system disorders (1 source) Personal history of other diseases of the nervous system and sense organs; Translations: [Personal history of other diseases of the nervous system and sense organs] Onset: 10-29-2023 Episodic Other non-traumatic joint disorders (1 source) Pain in left shoulder; Translations: [Chronic left shoulder pain] Onset: 12-01-2022 Episodic Residual codes; unclassified (3 sources) Other specified health status; Translations: [Other drug allergy] Onset: 03-02-2023 12-01-2022 Episodic Residual codes; unclassified (1 source) Asymptomatic menopausal state; Translations: [Asymptomatic postmenopausal status] Onset: 12-01-2022 Episodic Urinary tract infections (6 sources) Urinary tract infectious disease; Translations: [Urinary tract infection, site not specified] Onset: 10-29-2023 11-06-2023 Episodic Results Test Name Value Interpretation Reference Range Facility Anion gap in Serum or Plasma Ordered By: Ishaan Bernabe on 09-12-2024 Anion gap [Moles/Vol] 9 mmol/L 10-05 [facility] BUN/creatinine ratioOrdered By: Ishaan Bernabe on 09-12-2024 Urea nitrogen/Creatinine [Mass ratio] 28.3 mg/mg High 03-12 [facility] Basic Metabolic Profile (BMP )on 09-12-2024 BUN/CRE 28.3 RATIO High [facility] Comment on above: Order Comment: 129.1 Performed By: #### L 501.080 #### [facility], [address] Calcium [Mass/Vol] 9.4 mg/dL Normal 7.6-11.0 [facility] Comment on above: Order Comment: 129.1 Performed By: #### L 501.080 #### [facility] [address] [place], [address] Chloride [Moles/Vol] 106 mmol/L Normal 98-108 [facility] Comment on above: Order Comment: 129.1 Performed By: #### L 501.080 #### [facility] [address] [place], [address] CO2 [Moles/Vol] 24.4 mmol/L Normal 21.0-32.0 [facility] Comment on above: Order Comment: 129.1 Performed By: #### L 501.080 #### [facility] [address] [place], [address] Creatinine [Mass/Vol] 0.83 mg/dL Normal 0.70-1.20 [facility] Comment on above: Order Comment: 129.1 Performed By: #### L 501.080 #### [facility] [address] [place], [address] GAP 9 Normal 5-15 [facility] Comment on above: Order Comment: 129.1 Performed By: #### L [id number] #### [facility] [address] [place], [address] GFR/1.73 sq M.predicted among non-blacks MDRD (S/P/Bld) [Vol rate/Area] 73 mL/min/{1.73_m2} Normal >60 [facility] Comment on above: Order Comment: 129.1 Result Comment: mL/m in/1.73m2 CKD-EPI Creatinine Equation (2020) Performed By: #### L 501.080 #### [facility] [address] [place], [address] Glucose [Mass/Vol] 114 mg/dL High 70-99 [facility] Comment on above: Order Comment: 129.1 Performed By: #### L 501.080 #### [facility] [address] [place], [address] Potassium [Moles/Vol] 4.1 mmol/L Normal 3.3-5.1 [facility] Comment on above: Order Comment: 129.1 Performed By: #### L 501.080 #### [facility] [address] [place], [address] Sodium [Moles/Vol] 139 mmol/L Normal 133-145 [facility] Comment on above: Order Comment: 129.1 Performed By: #### L 501.080 #### [facility] [address] [place], [address] Urea nitrogen [Mass/Vol] 23 mg/dL High 4-19 [facility] Comment on above: Order Comment: 129.1 Performed By: #### L 501.080 #### [facility] [address] [place], [address] Carbon dioxide, total [Moles /volume] in Central venous bloodOrdered By: Ishaan Bernabe on 09-12-2024 CO2 [Moles/Vol] 24.4 mmol/L 21.0-32.0 [facility] Chloride assayOrdered By: Mary Bernabe on 09-12-2024 Chloride [Moles/Vol] 106 mmol/L 98-108 [facility] GFR/1.73 sq M.predicted constantine g non-blacks MDRD (S/P/Bld) [Vol rate/Area]Ordered By: Ishaan Bernabe on 09-12-2024 Estimated GFR (MDRD) Non-Af Amer 73 >60 [facility] Comment on above: mL/min/1.73m2 CKD-EP I Creatinine Equation (2020) Potassium (Unsp spec) [Mass/ Vol]Ordered By: Ishaan Bernabe on 09-12-2024 Potassium [Moles/Vol] 4.1 mmol/L 3.3-5.1 [facility] Serum creatinine measurement (mass/volume)Ordered By: Ishaan Bernabe on 09-12-2024 Creatinine [Mass/Vol] 0.83 mg/dL 0.70-1.20 [facility] Serum glucose measurement (m ass/volume)Ordered By: Ishaan Bernabe on 09-12-2024 Glucose [Mass/Vol] 114 mg/dL High 70-99 [facility] Serum or plasma calcium kayleen urement (mass/volume)Ordered By: Ishaan Bernabe on 09-12-2024 Calcium [Mass/Vol] 9.4 mg/dL 7.6-11.0 [facility] Serum or plasma urea nitroge n measurement (mass/volume)Ordered By: Ishaan Bernabe on 09-12-2024 Urea nitrogen [Mass/Vol] 23 mg/dL High 4-19 [facility] Sodium levelOrdered By: Ishaan Bernabe on 09-12-2024 Sodium [Moles/Vol] 139 mmol/L 133-145 [facility] Anion gap in Serum or Plasma Ordered By: Ishaan Bernabe on 08-29-2024 Anion gap [Moles/Vol] 8 mmol/L 5-15 [facility] BUN/creatinine ratioOrdered By: Ishaan Bernabe on 08-29-2024 Urea nitrogen/Creatinine [Mass ratio] 24.8 mg/mg High 10-20 [facility] Basic Metabolic Profile (BMP )on 08-29-2024 BUN/CRE 24.8 RATIO High - [facility] Comment on above: Order Comment: 129.1 Performed By: #### L 501.080 #### [facility] [address] [place], [address] Calcium [Mass/Vol] 9.6 mg/dL Normal 7.6-11.0 [facility] Comment on above: Order Comment: 129.1 Performed By: #### L 501.080 #### [facility] [address] [place], [address] Chloride [Moles/Vol] 105 mmol/L Normal 98-108 [facility] Comment on above: Order Comment: 129.1 Performed By: #### L [id number] #### [facility] [address] [place], [address] CO2 [Moles/Vol] 23.4 mmol/L Normal 21.0-32.0 [facility] Comment on above: Order Comment: 129.1 Performed By: #### L [id number] #### [facility] [address] [place], [address] Creatinine [Mass/Vol] 0.77 mg/dL Normal 0.70-1.20 [facility] Comment on above: Order Comment: 129.1 Performed By: #### L [id number] #### [facility] [address] [place], [address] GAP 8 Normal 5-15 [facility] Comment on above: Order Comment: 129.1 Performed By: #### L [id number] #### [facility] [address] [place], [address] GFR/1.73 sq M.predicted among non-blacks MDRD (S/P/Bld) [Vol rate/Area] 79 mL/min/{1.73_m2} Normal >60 [facility] Comment on above: Order Comment: 129.1 Result Comment: mL/m in/1.73m2 CKD-EPI Creatinine Equation (2020) Performed By: #### L 501.080 #### [facility] [address] [place], [address] Glucose [Mass/Vol] 103 mg/dL High 70-99 [facility] Comment on above: Order Comment: 129.1 Performed By: #### L [id number] #### [facility] [address] [place], [address] Potassium [Moles/Vol] 5.5 mmol/L High 3.3-5.1 [facility] Comment on above: Order Comment: 129.1 Performed By: #### L [id number] #### [facility] [address] [place], [address] Sodium [Moles/Vol] 137 mmol/L Normal 133-145 [facility] Comment on above: Order Comment: 129.1 Performed By: #### L [id number] #### [facility] [address] [place], [place], [address] Urea nitrogen [Mass/Vol] 19 mg/dL Normal 4-19 [facility] Comment on above: Order Comment: 129.1 Performed By: #### L [id number] #### [facility] [address] [place], [place], [address] Carbon dioxide, total [Moles /volume] in Central venous bloodOrdered By: Ishaan Bernabe on 08-29-2024 CO2 [Moles/Vol] 23.4 mmol/L 21.0-32.0 [facility] Chloride assayOrdered By: Mary Bernabe on 08-29-2024 Chloride [Moles/Vol] 105 mmol/L 98-108 [facility] GFR/1.73 sq M.predicted constantine g non-blacks MDRD (S/P/Bld) [Vol rate/Area]Ordered By: Ishaan Bernabe on 08-29-2024 Estimated GFR (MDRD) Non-Af Amer 79 >60 [facility] Comment on above: mL/min/1.73m2 CKD-EP I Creatinine Equation (2020) Potassium (Unsp spec) [Mass/ Vol]Ordered By: Ishaan Bernabe on 08-29-2024 Potassium [Moles/Vol] 5.5 mmol/L High 3.3-5.1 [facility] Serum creatinine measurement (mass/volume)Ordered By: Ishaan Bernabe on 08-29-2024 Creatinine [Mass/Vol] 0.77 mg/dL 0.70-1.20 [facility] Serum glucose measurement (m ass/volume)Ordered By: Ishaan Bernabe on 08-29-2024 Glucose [Mass/Vol] 103 mg/dL High 70-99 [facility] Serum or plasma calcium kayleen urement (mass/volume)Ordered By: Ishaan Bernabe on 08-29-2024 Calcium [Mass/Vol] 9.6 mg/dL 7.6-11.0 [facility] Serum or plasma urea nitroge n measurement (mass/volume)Ordered By: Ishaan Bernabe on 08-29-2024 Urea nitrogen [Mass/Vol] 19 mg/dL 4-19 [facility] Sodium levelOrdered By: Ishaan Bernabe on 08-29-2024 Sodium [Moles/Vol] 137 mmol/L 133-145 [facility] Anion gap in Serum or Plasma Ordered By: Ishaan Bernabe on 08-14-2024 Anion gap [Moles/Vol] 9 mmol/L 5-15 [facility] BUN/creatinine ratioOrdered By: Ishaan Bernabe on 08-14-2024 Urea nitrogen/Creatinine [Mass ratio] 29.0 mg/mg High 10- [facility] Basic Metabolic Profile (BMP )on 08-14-2024 BUN/CRE 29.0 RATIO High 03-12 [facility] Comment on above: Order Comment: 129 Performed By: #### L 501.080 #### [facility] [address] [place], [address] Calcium [Mass/Vol] 9.4 mg/dL Normal 7.6-11.0 [facility] Comment on above: Order Comment: 129 Performed By: #### L 501.080 #### [facility] [address] [place], [address] Chloride [Moles/Vol] 107 mmol/L Normal 98-108 [facility] Comment on above: Order Comment: 129 Performed By: #### L [id number] #### [facility] [address] [place], [address] CO2 [Moles/Vol] 21.7 mmol/L Normal 21.0-32.0 [facility] Comment on above: Order Comment: 129 Performed By: #### L [id number] #### [facility] [address] [place], [address] Creatinine [Mass/Vol] 0.80 mg/dL Normal 0.70-1.20 [facility] Comment on above: Order Comment: 129 Performed By: #### L 501.080 #### [facility] [address] [place], [address] GAP 9 Normal 5-15 [facility] Comment on above: Order Comment: 129 Performed By: #### L [id number] #### [facility] [address] [place], [address] GFR/1.73 sq M.predicted among non-blacks MDRD (S/P/Bld) [Vol rate/Area] 76 mL/min/{1.73_m2} Normal >60 [facility] Comment on above: Order Comment: 129 Result Comment: mL/m in/1.73m2 CKD-EPI Creatinine Equation (2020) Performed By: #### L [id number] #### [facility] [address] [place], [address] Glucose [Mass/Vol] 74 mg/dL Normal 70-99 [facility] Comment on above: Order Comment: 129 Performed By: #### L 501.080 #### [facility] [address] [place], [address] Potassium [Moles/Vol] 5.4 mmol/L High 3.3-5.1 [facility] Comment on above: Order Comment: 129 Performed By: #### L 501.080 #### [facility] [address] [place], [address] Sodium [Moles/Vol] 138 mmol/L Normal 133-145 [facility] Comment on above: Order Comment: 129 Performed By: #### L 501.080 #### [facility] [address] [place], [address] Urea nitrogen [Mass/Vol] 23 mg/dL High 4-19 [facility] Comment on above: Order Comment: 129 Performed By: #### L 501.080 #### [facility] [address] [place], [address] CBC-Complete Blood Cnt No Di ffon 08-14-2024 Erythrocyte distribution width (RBC) [Ratio] 12.9 % Normal 11.6-14.6 [facility] Comment on above: Order Comment: 129 Performed By: #### L [id number] #### [facility] [address] [place], [address] Hematocrit (Bld) [Volume fraction] 37.5 % Normal 37-47 [facility] Comment on above: Order Comment: 129 Performed By: #### L [id number] #### [facility] [address] [place], [address] Hemoglobin (Bld) [Mass/Vol] 12.0 g/dL Normal 12.0-15.0 [facility] Comment on above: Order Comment: 129 Performed By: #### L [id number] #### [facility] [address] [place], [address] MCH (RBC) [Entitic mass] 29.6 pg Normal 27.0-32.0 [facility] Comment on above: Order Comment: 129 Performed By: #### L [id number] #### [facility] [address] [place], [address] MCHC (RBC) [Mass/Vol] 32.0 g/dL Normal 32-36 [facility] Comment on above: Order Comment: 129 Performed By: #### L [id number] #### [facility] [address] [place], [address] MCV (RBC) [Entitic vol] 92.4 fL Normal 81-99 [facility] Comment on above: Order Comment: 129 Performed By: #### L [id number] #### [facility] [address] [place], [address] Platelet mean volume (Bld) [Entitic vol] 10.8 fL Normal 6.2-12.0 [facility] Comment on above: Order Comment: 129 Performed By: #### L [id number] #### [facility] [address] [place], [address] Platelets (Bld) [#/Vol] 415 10*3/uL Normal 150-450 [facility] Comment on above: Order Comment: 129 Performed By: #### L [id number] #### [facility] [address] [place], [address] RBC (Bld) [#/Vol] 4.06 10*6/uL Low 4.2-5.4 [facility] Comment on above: Order Comment: 129 Performed By: #### L [id number] #### [facility] [address] [place], [address] RDW SD 43.5 fl Normal 35.1-43.9 [facility] Comment on above: Order Comment: 129 Performed By: #### L [id number] #### [facility] [address] [place], [address] WBC (Bld) [#/Vol] 10.1 10*3/uL Normal 4.4-11.0 [facility] Comment on above: Order Comment: 129 Performed By: #### L [id number] #### [facility] [address] [place], [address] Carbon dioxide, total [Moles /volume] in Central venous bloodOrdered By: Ishaan Bernabe on 08-14-2024 CO2 [Moles/Vol] 21.7 mmol/L 21.0-32.0 [facility] Chloride assayOrdered By: Mary Bernabe on 08-14-2024 Chloride [Moles/Vol] 107 mmol/L 98-108 [facility] Erythrocyte distribution wid th (RBC) [Ratio]Ordered By: Ishaan Bernabe on 08-14-2024 Erythrocyte distribution width (RBC) [Entitic vol] 43.5 fL 35.1-43.9 [facility] Erythrocyte distribution wid th ratioOrdered By: Ishaan Bernabe on 08-14-2024 Erythrocyte distribution width (RBC) [Ratio] 12.9 % 11.6-14.6 [facility] GFR/1.73 sq M.predicted constantine g non-blacks MDRD (S/P/Bld) [Vol rate/Area]Ordered By: Ishaan Bernabe on 08-14-2024 Estimated GFR (MDRD) Non-Af Amer 76 >60 [facility] Comment on above: mL/min/1.73m2 CKD-EP I Creatinine Equation (2020) Hematocrit Auto (Bld) [Volum e fraction]Ordered By: Ishaan Bernabe on 08-14-2024 Hematocrit (Bld) [Volume fraction] 37.5 % 37-47 [facility] Hemoglobin measurementOrdere d By: Ishaan Bernabe on 08-14-2024 Hemoglobin (Bld) [Mass/Vol] 12.0 g/dL 12.0-15.0 [facility] L506.1001on 08-14-2024 Vitamin D 25-OH 72.2 ng/mL Normal 30-100 [facility] Comment on above: Order Comment: 129 Result Comment: Yancy min D Status Deficiency: <20 ng/mL (50nmol/L) Insufficiency: 20-30 ng/mL (50-75 nmol/L) Sufficiency: 30-100 ng/mL (75-250 nmol/L) Toxicity: >100 ng/mL (>250 nmol/L) Performed By: #### L 501.080 #### [facility] [place], [address] MCV (mean corpuscular volume ) determinationOrdered By: Ishaan Bernabe on 08-14-2024 MCV (RBC) [Entitic vol] 92.4 fL 81-99 [facility] Mean corpuscular hemoglobin (MCH) determinationOrdered By: Ishaan Bernabe on 08-14-2024 MCH (RBC) [Entitic mass] 29.6 pg 27.0-32.0 [facility] Mean corpuscular hemoglobin concentration (MCHC) determinationOrdered By: Ishaan Bernabe on 08-14-2024 MCHC (RBC) [Mass/Vol] 32.0 g/dL 32-36 [facility] Mean platelet volume determi nationOrdered By: Ishaan Bernabe on 08-14-2024 Platelet mean volume (Bld) [Entitic vol] 10.8 fL 6.2-12.0 [facility] Platelet countOrdered By: Mary Bernabe on 08-14-2024 Platelets (Bld) [#/Vol] 415 10*3/uL 150-450 [facility] Potassium (Unsp spec) [Mass/ Vol]Ordered By: Ishaan Bernabe on 08-14-2024 Potassium [Moles/Vol] 5.4 mmol/L High 3.3-5.1 [facility] RBC Auto (Bld) [#/Vol]Ordere d By: Ishaan Bernabe on 08-14-2024 RBC (Bld) [#/Vol] 4.06 10*6/uL Low 4.2-5.4 [facility] Serum creatinine measurement (mass/volume)Ordered By: Ishaan Bernabe on 08-14-2024 Creatinine [Mass/Vol] 0.80 mg/dL 0.70-1.20 [facility] Serum glucose measurement (m ass/volume)Ordered By: Ishaan Bernabe on 08-14-2024 Glucose [Mass/Vol] 74 mg/dL 70-99 [facility] Serum or plasma calcium kayleen urement (mass/volume)Ordered By: Ishaan Bernabe on 08-14-2024 Calcium [Mass/Vol] 9.4 mg/dL 7.6-11.0 [facility] Serum or plasma urea nitroge n measurement (mass/volume)Ordered By: Ishaan Bernabe on 08-14-2024 Urea nitrogen [Mass/Vol] 23 mg/dL High 4-19 [facility] Sodium levelOrdered By: Ishaan Bernabe on 08-14-2024 Sodium [Moles/Vol] 138 mmol/L 133-145 [facility] Vitamin D, 25-hydroxyOrdered By: Ishaan Bernabe on 08-14-2024 Vitamin D 25-Hydroxy 72.2 ng/mL 30-100 [facility] Comment on above: Vitamin D StatusDefi ciency: <20 ng/mL (50nmol/L)Insufficiency: 20-30 ng/mL (50-75 nmol/L)Sufficiency: 30-100 ng/mL (75-250 nmol/L)Toxicity: >100 ng/mL (>250 nmol/L) White blood cell (WBC) count Ordered By: Ishaan Bernabe on 08-14-2024 WBC (Bld) [#/Vol] 10.1 10*3/uL 4.4-11.0 [facility] Basic Metabolic Profile (BMP )on 05-16-2024 BUN/CRE 28.5 RATIO High 10-20 [facility] Comment on above: Order Comment: 129.1 Performed By: #### L [id number] #### [facility] [address] [place], [address] CA,Total 9.3 mg/dL Normal 8.5-10.1 [facility] Comment on above: Order Comment: 129.1 Performed By: #### L [id number] #### [facility] [address] [place], [address] Chloride [Moles/Vol] 110 mmol/L High 98-107 [facility] Comment on above: Order Comment: 129.1 Performed By: #### L [id number] #### [facility] [address] [place], [address] CO2 [Moles/Vol] 27.0 mmol/L Normal 21.0-32.0 [facility] Comment on above: Order Comment: 129.1 Performed By: #### L [id number] #### [facility] [address] [place], [address] Creatinine [Mass/Vol] 0.60 mg/dL Normal 0.55-1.02 [facility] Comment on above: Order Comment: 129.1 Result Comment: The validity of the calculated GFR GFRAA in patients over 70 years has not been determined. Clinical correlation is essential. Performed By: #### L 501.080 #### [facility] [address] [place], [address] EST GFR - AA 126 mL/min Normal >60 [facility] Comment on above: Order Comment: 129.1 Result Comment: Afri can [place] GFR Calc Performed By: #### L [id number] #### [facility] [address] [place], [address] GAP 2 Low 5-15 [facility] Comment on above: Order Comment: 129.1 Performed By: #### L [id number] #### [facility] [address] [place], [address] GFR/1.73 sq M.predicted among non-blacks MDRD (S/P/Bld) [Vol rate/Area] 104 mL/min/{1.73_m2} Normal >60 [facility] Comment on above: Order Comment: 129.1 Result Comment: Non- GFR Calc Performed By: #### L 501.080 #### [facility] [address] [place] [place], [address] Glucose [Mass/Vol] 96 mg/dL Normal 74-106 [facility] Comment on above: Order Comment: 129.1 Performed By: #### L [id number] #### [facility] [address] [place], [address] Potassium [Moles/Vol] 3.7 mmol/L Normal 3.5-5.1 [facility] Comment on above: Order Comment: 129.1 Performed By: #### L [id number] #### [facility] [address] [place], [address] Sodium [Moles/Vol] 139 mmol/L Normal 136-145 [facility] Comment on above: Order Comment: 129.1 Performed By: #### L [id number] #### [facility] [address] [place], [address] Urea nitrogen [Mass/Vol] 17 mg/dL Normal 7-18 [facility] Comment on above: Order Comment: 129.1 Performed By: #### L [id number] #### [facility] [address] [place], [address] Blood urea nitrogen (BUN)/cr eatinine ratioOrdered By: Ishaan Bernabe on 05-16-2024 Urea nitrogen/Creatinine [Mass ratio] 28.5 mg/mg High 10-20 [facility] CBC-Complete Blood Cnt No Di ffon 05-16-2024 Erythrocyte distribution width (RBC) [Ratio] 14.0 % Normal 11.6-14.6 [facility] Comment on above: Order Comment: 129.1 Performed By: #### L [id number] #### [facility] [address] [place], [address] Hematocrit (Bld) [Volume fraction] 37.5 % Normal 37-47 [facility] Comment on above: Order Comment: 129.1 Performed By: #### L [id number] #### [facility] [address] [place], [address] Hemoglobin (Bld) [Mass/Vol] 11.8 g/dL Low 12.0-15.0 [facility] Comment on above: Order Comment: 129.1 Performed By: #### L [id number] #### [facility] [address] [place], [address] MCH (RBC) [Entitic mass] 28.2 pg Normal 27.0-32.0 [facility] [facility] Comment on above: Order Comment: 129.1 Performed By: #### L 501.080 #### [facility] [address] [place], [address] MCHC (RBC) [Mass/Vol] 31.5 g/dL Low 32-36 [facility] Comment on above: Order Comment: 129.1 Performed By: #### L 501.080 #### [facility] [address] [place], [address] MCV (RBC) [Entitic vol] 89.7 fL Normal 81-99 [facility] Comment on above: Order Comment: 129.1 Performed By: #### L 501.080 #### [facility] [address] [place], [address] Platelet mean volume (Bld) [Entitic vol] 10.8 fL Normal 6.2-12.0 [facility] Comment on above: Order Comment: 129.1 Performed By: #### L 501.080 #### [facility] [address] [place], [address] Platelets (Bld) [#/Vol] 381 10*3/uL Normal 150-450 [facility] Comment on above: Order Comment: 129.1 Performed By: #### L 501.080 #### [facility] [address] [place], [address] RBC (Bld) [#/Vol] 4.18 10*6/uL Low 4.2-5.4 [facility] Comment on above: Order Comment: 129.1 Performed By: #### L 501.080 #### [facility] [address] [place], [address] RDW SD 46.2 fl High 35.1-43.9 [facility] Comment on above: Order Comment: 129.1 Performed By: #### L 501.080 #### [facility] [address] [place], [address] WBC (Bld) [#/Vol] 10.0 10*3/uL Normal 4.4-11.0 [facility] Comment on above: Order Comment: 129.1 Performed By: #### L 501.080 #### [facility] [address] [place], [address] Carbon dioxide measurementOr dered By: Ishaan Bernabe on 05-16-2024 CO2 [Moles/Vol] 27.0 mmol/L 21.0-32.0 [facility] Chloride measurementOrdered By: Ishaan Bernabe on 05-16-2024 Chloride [Moles/Vol] 110 mmol/L High 98-107 [facility] Erythrocyte distribution wid th (RBC) [Ratio]Ordered By: Ishaan Bernabe on 05-16-2024 Erythrocyte distribution width (RBC) [Entitic vol] 46.2 fL High 35.1-43.9 [facility] Erythrocyte distribution wid th ratioOrdered By: Ishaan Bernabe on 05-16-2024 Erythrocyte distribution width (RBC) [Ratio] 14.0 % 11.6-14.6 [facility] Estimated glomerular filtrat ion rate (GFR) AmericanOrdered By: Ishaan Bernabe on 05-16-2024 Estimated GFR (MDRD) Amer 126 mL/min >60 [facility] Comment on above: GFR Calc Glomerular filtration rate ( GFR) estimationOrdered By: Ishaan Bernabe on 05-16-2024 Estimated GFR (MDRD) Non-Af Amer 104 mL/min >60 [facility] Comment on above: Non- GFR Calc Glucose measurementOrdered B y: Ishaan Bernabe on 05-16-2024 Glucose [Mass/Vol] 96 mg/dL 74-106 [facility] Hematocrit Auto (Bld) [Volum e fraction]Ordered By: Ishaan Bernabe on 05-16-2024 Hematocrit (Bld) [Volume fraction] 37.5 % 37-47 [facility] Hemoglobin measurementOrdere d By: Ishaan Bernabe on 05-16-2024 Hemoglobin (Bld) [Mass/Vol] 11.8 g/dL Low 12.0-15.0 [facility] MCV (mean corpuscular volume ) determinationOrdered By: Ishaan Bernabe on 05-16-2024 MCV (RBC) [Entitic vol] 89.7 fL 81-99 [facility] Mean corpuscular hemoglobin (MCH) determinationOrdered By: Ishaan Bernabe on 05-16-2024 MCH (RBC) [Entitic mass] 28.2 pg 27.0-32.0 [facility] Mean corpuscular hemoglobin concentration (MCHC) determinationOrdered By: Ishaan Bernabe on 05-16-2024 MCHC (RBC) [Mass/Vol] 31.5 g/dL Low 32-36 [facility] Mean platelet volume determi nationOrdered By: Ishaan Bernabe on 05-16-2024 Platelet mean volume (Bld) [Entitic vol] 10.8 fL 6.2-12.0 [facility] Platelet countOrdered By: Mary Bernabe on 05-16-2024 Platelets (Bld) [#/Vol] 381 10*3/uL 150-450 [facility] Potassium measurementOrdered By: Ishaan Bernabe on 05-16-2024 Potassium [Moles/Vol] 3.7 mmol/L 3.5-5.1 [facility] RBC Auto (Bld) [#/Vol]Ordere d By: Ishaan Bernabe on 05-16-2024 RBC (Bld) [#/Vol] 4.18 10*6/uL Low 4.2-5.4 [facility] Serum anion gap measurementO rdered By: Ishaan Bernabe on 05-16-2024 Anion gap [Moles/Vol] 2 mmol/L Low 5-15 [facility] Serum or plasma calcium kayleen urement (mass/volume)Ordered By: Ishaan Bernabe on 05-16-2024 Calcium [Mass/Vol] 9.3 mg/dL 8.5-10.1 [facility] Serum or plasma creatinine m easurement (mass/volume)Ordered By: Ishaan Bernabe on 05-16-2024 Creatinine [Mass/Vol] 0.60 mg/dL 0.55-1.02 [facility] Comment on above: The validity of the calculated GFR & GFRAA in patients over 70 years has not been determined. Clinical correlation is essential. Serum or plasma urea nitroge n measurement (mass/volume)Ordered By: Ishaan Bernabe on 05-16-2024 Urea nitrogen [Mass/Vol] 17 mg/dL 7-18 [facility] Sodium levelOrdered By: Ishaan Bernabe on 05-16-2024 Sodium [Moles/Vol] 139 mmol/L 136-145 [facility] White blood cell (WBC) count Ordered By: Ishaan Bernabe on 05-16-2024 WBC (Bld) [#/Vol] 10.0 10*3/uL 4.4-11.0 [facility] Basic Metabolic Profile (BMP )on 02-14-2024 BUN/CRE 27.2 RATIO High 10-20 [facility] Comment on above: Order Comment: 129.1 Performed By: #### L 506.1000, L500.2500, L100.0500 #### [facility] [address] [place], [address] CA,Total 9.5 mg/dL Normal 8.5-10.1 [facility] Comment on above: Order Comment: 129.1 Performed By: #### L 506.1000, L500.2500, L100.0500 #### [facility] [address] [place] [place], [address] Chloride [Moles/Vol] 108 mmol/L High 98-107 [facility] Comment on above: Order Comment: 129.1 Performed By: #### L 506.1000, L500.2500, L100.0500 #### [facility] [address] [place], [address] CO2 [Moles/Vol] 24.0 mmol/L Normal 21.0-32.0 [facility] Comment on above: Order Comment: 129.1 Performed By: #### L 506.1000, L500.2500, L100.0500 #### [facility] [address] [place], [address] Creatinine [Mass/Vol] 0.77 mg/dL Normal 0.55-1.02 [facility] Comment on above: Order Comment: 129.1 Result Comment: The validity of the calculated GFR GFRAA in patients over 70 years has not been determined. Clinical correlation is essential. Performed By: #### L 506.1000, L500.2500, L100.0500 #### [facility] [address] [place], [address] EST GFR - AA 93 mL/min Normal >60 [facility] Comment on above: Order Comment: 129.1 Result Comment: Afri can Bol[place] GFR Calc Performed By: #### L 506.1000, L500.2500, L100.0500 #### [facility] [address] [place], [address] GAP 9 Normal 5-15 [facility] Comment on above: Order Comment: 129.1 Performed By: #### L 506.1000, L500.2500, L100.0500 #### [facility] [address] [place], [address] GFR/1.73 sq M.predicted among non-blacks MDRD (S/P/Bld) [Vol rate/Area] 77 mL/min/{1.73_m2} Normal >60 [facility] Comment on above: Order Comment: 129.1 Result Comment: Non- GFR Calc Performed By: #### L 506.1000, L500.2500, L100.0500 #### [facility] [address] [place], [address] Glucose [Mass/Vol] 90 mg/dL Normal 74-106 [facility] Comment on above: Order Comment: 129.1 Performed By: #### L 506.1000, L500.2500, L100.0500 #### [facility] [address] [place], [address] Potassium [Moles/Vol] 4.2 mmol/L Normal 3.5-5.1 [facility] Comment on above: Order Comment: 129.1 Performed By: #### L 506.1000, L500.2500, L100.0500 #### [facility] [address] [place], [address] Sodium [Moles/Vol] 141 mmol/L Normal 136-145 [facility] Comment on above: Order Comment: 129.1 Performed By: #### L 506.1000, L500.2500, L100.0500 #### [facility] [address] [place], [address] Urea nitrogen [Mass/Vol] 21 mg/dL High 7-18 [facility] Comment on above: Order Comment: 129.1 Performed By: #### L 506.1000, L500.2500, L100.0500 #### [facility] [address] [place], [address] CBC-Complete Blood Cnt No Di ffon 02-14-2024 Erythrocyte distribution width (RBC) [Ratio] 14.5 % Normal 11.6-14.6 [facility] Comment on above: Order Comment: 129.1 Performed By: #### L 506.1000, L500.2500, L100.0500 #### [facility] [address] [place], [address] Hematocrit (Bld) [Volume fraction] 38.4 % Normal 37-47 [facility] Comment on above: Order Comment: 129.1 Performed By: #### L 506.1000, L500.2500, L100.0500 #### [facility] [address] [place], [address] Hemoglobin (Bld) [Mass/Vol] 11.7 g/dL Low 12.0-15.0 [facility] Comment on above: Order Comment: 129.1 Performed By: #### L 506.1000, L500.2500, L100.0500 #### [facility] [address] [place], [address] MCH (RBC) [Entitic mass] 27.5 pg Normal 27.0-32.0 [facility] Comment on above: Order Comment: 129.1 Performed By: #### L 506.1000, L500.2500, L100.0500 #### [facility] [address] [place], [address] MCHC (RBC) [Mass/Vol] 30.5 g/dL Low 32-36 [facility] Comment on above: Order Comment: 129.1 Performed By: #### L 506.1000, L500.2500, L100.0500 #### [facility] [address] [place], [address] MCV (RBC) [Entitic vol] 90.4 fL Normal 81-99 [facility] Comment on above: Order Comment: 129.1 Performed By: #### L 506.1000, L500.2500, L100.0500 #### [facility] [address] [place], [address] Platelet mean volume (Bld) [Entitic vol] 11.0 fL Normal 6.2-12.0 [facility] Comment on above: Order Comment: 129.1 Performed By: #### L 506.1000, L500.2500, L100.0500 #### [facility] [address] [place], [address] Platelets (Bld) [#/Vol] 354 10*3/uL Normal 150-450 [facility] Comment on above: Order Comment: 129.1 Performed By: #### L 506.1000, L500.2500, L100.0500 #### [facility] [address] [place], [address] RBC (Bld) [#/Vol] 4.25 10*6/uL Normal 4.2-5.4 [facility] Comment on above: Order Comment: 129.1 Performed By: #### L 506.1000, L500.2500, L100.0500 #### [facility] [address] [place], [address] RDW SD 48.5 fl High 35.1-43.9 [facility] Comment on above: Order Comment: 129.1 Performed By: #### L 506.1000, L500.2500, L100.0500 #### [facility] [address] [place], [address] WBC (Bld) [#/Vol] 10.0 10*3/uL Normal 4.4-11.0 [facility] Comment on above: Order Comment: 129.1 Performed By: #### L 506.1000, L500.2500, L100.0500 #### [facility] [address] [place], [address] Vitamin D,25 Hydroxyon 02-13 Vitamin D 25-OH 46.5 ng/mL Normal [facility] Comment on above: Order Comment: 129.1 Result Comment: Yancy min D 25(OH) Status Range Deficiency <20 ng/mL (50nmol/L) Insufficiency 20 - 30 ng/mL (50 - 75 nmol/L) Sufficiency 30 - 100 ng/mL (75 - 250 nmol/L) Toxicity >100 ng/mL (>250 nmol/L) Performed By: #### L 506.1000, L500.2500, L100.0500 #### [facility] [address] [place], [address] Basic Metabolic Profile (BMP )on 11-15-2023 BUN/CRE 14.5 RATIO Normal 10-20 [facility] Comment on above: Order Comment: 129.1 Performed By: #### L 506.1000, L500.2500, L100.0500 #### [facility] [address] [place], [address] CA,Total 10.3 mg/dL High 8.5-10.1 [facility] Comment on above: Order Comment: 129.1 Performed By: #### L 506.1000, L500.2500, L100.0500 #### [facility] [address] [place], [address] Chloride [Moles/Vol] 106 mmol/L Normal 98-107 [facility] Comment on above: Order Comment: 129.1 Performed By: #### L 506.1000, L500.2500, L100.0500 #### [facility] [address] [place], [address] CO2 [Moles/Vol] 26.0 mmol/L Normal 21.0-32.0 [facility] Comment on above: Order Comment: 129.1 Performed By: #### L 506.1000, L500.2500, L100.0500 #### [facility] [address] [place], [address] Creatinine [Mass/Vol] 0.76 mg/dL Normal 0.55-1.02 [facility] Comment on above: Order Comment: 129.1 Result Comment: The validity of the calculated GFR GFRAA in patients over 70 years has not been determined. Clinical correlation is essential. Performed By: #### L 506.1000, L500.2500, L100.0500 #### [facility] [address] [place], [address] EST GFR - AA 95 mL/min Normal >60 [facility] Comment on above: Order Comment: 129.1 Result Comment: Afri can [place] GFR Calc Performed By: #### L 506.1000, L500.2500, L100.0500 #### [facility] [address] [place], [address] GAP 6 Normal 5-15 [facility] Comment on above: Order Comment: 129.1 Performed By: #### L 506.1000, L500.2500, L100.0500 #### [facility] [address] [place], [address] GFR/1.73 sq M.predicted among non-blacks MDRD (S/P/Bld) [Vol rate/Area] 78 mL/min/{1.73_m2} Normal >60 [facility] Comment on above: Order Comment: 129.1 Result Comment: Non- GFR Calc Performed By: #### L 506.1000, L500.2500, L100.0500 #### [facility] [address] [place], [address] Glucose [Mass/Vol] 142 mg/dL High 74-106 [facility] Comment on above: Order Comment: 129.1 Result Comment: Fast ing Glucose result greater than or equal to 126 mg/dL suggests DIABETES MELLITUS per A.D.A. criteria. Performed By: #### L 506.1000, L500.2500, L100.0500 #### [facility] [address] [place], [address] Potassium [Moles/Vol] 3.8 mmol/L Normal 3.5-5.1 [facility] Comment on above: Order Comment: 129.1 Performed By: #### L 506.1000, L500.2500, L100.0500 #### [facility] [address] [place], [address] Sodium [Moles/Vol] 138 mmol/L Normal 136-145 [facility] Comment on above: Order Comment: 129.1 Performed By: #### L 506.1000, L500.2500, L100.0500 #### [facility] [address] [place], [address] Urea nitrogen [Mass/Vol] 11 mg/dL Normal 7-18 [facility] Comment on above: Order Comment: 129.1 Performed By: #### L 506.1000, L500.2500, L100.0500 #### [facility] [address] [place], [address] CBC-Complete Blood Cnt No Di ffon 11-15-2023 Erythrocyte distribution width (RBC) [Ratio] 13.3 % Normal 11.6-14.6 [facility] Comment on above: Order Comment: 129.1 Performed By: #### L 501.080 #### [facility] [address] [place], [address] Hematocrit (Bld) [Volume fraction] 39.7 % Normal 37-47 [facility] Comment on above: Order Comment: 129.1 Performed By: #### L 501.080 #### [facility] [address] [place], [address] Hemoglobin (Bld) [Mass/Vol] 12.5 g/dL Normal 12.0-15.0 [facility] Comment on above: Order Comment: 129.1 Performed By: #### L 501.080 #### [facility] [address] [place], [address] MCH (RBC) [Entitic mass] 28.0 pg Normal 27.0-32.0 [facility] Comment on above: Order Comment: 129.1 Performed By: #### L 501.080 #### [facility] [address] [place], [address] MCHC (RBC) [Mass/Vol] 31.5 g/dL Low 32-36 [facility] Comment on above: Order Comment: 129.1 Performed By: #### L 501.080 #### [facility] [address] [place], [address] MCV (RBC) [Entitic vol] 89.0 fL Normal 81-99 [facility] Comment on above: Order Comment: 129.1 Performed By: #### L 501.080 #### [facility] [address] [place], [address] Platelet mean volume (Bld) [Entitic vol] 10.9 fL Normal 6.2-12.0 [facility] Comment on above: Order Comment: 129.1 Performed By: #### L 501.080 #### [facility] [address] [place], [address] Platelets (Bld) [#/Vol] 444 10*3/uL Normal 150-450 [facility] Comment on above: Order Comment: 129.1 Performed By: #### L 501.080 #### [facility] [address] [place], [address] RBC (Bld) [#/Vol] 4.46 10*6/uL Normal 4.2-5.4 [facility] Comment on above: Order Comment: 129.1 Performed By: #### L 501.080 #### [facility] [address] [place], [address] RDW SD 43.6 fl Normal 35.1-43.9 [facility] Comment on above: Order Comment: 129.1 Performed By: #### L 501.080 #### [facility] [address] [place], [address] WBC (Bld) [#/Vol] 9.6 10*3/uL Normal 4.4-11.0 [facility] Comment on above: Order Comment: 129.1 Performed By: #### L 501.080 #### [facility] [address] [place], [address] Bedside Glucoseon 10-29-2023 FINGERSTICK GLU 120 mg/dL High 74-106 [facility] Comment on above: Result Comment: MARIO ZHENG OF PATIENT CARE PER NURSING PROTOCOL Performed By: #### L 501.080 #### [facility] [address] [place], [address] Basic Metabolic Profile (BMP )on 10-28-2023 BUN/CRE 27.9 RATIO High 10-20 [facility] Comment on above: Performed By: #### L 501.080 #### [facility] [address] [place], [address] CA,Total 10.1 mg/dL Normal 8.5-10.1 [facility] Comment on above: Performed By: #### L 501.080 #### [facility] [address] [place], [address] Chloride [Moles/Vol] 104 mmol/L Normal 98-107 [facility] Comment on above: Performed By: #### L 501.080 #### [facility] [address] [place], [address] CO2 [Moles/Vol] 30.0 mmol/L Normal 21.0-32.0 [facility] Comment on above: Performed By: #### L 501.080 #### [facility] [address] [place], [address] Creatinine [Mass/Vol] 0.75 mg/dL Normal 0.55-1.02 [facility] Comment on above: Result Comment: The validity of the calculated GFR GFRAA in patients over 70 years has not been determined. Clinical correlation is essential. Performed By: #### L 501.080 #### [facility] [address] [place], [address] ECRCL 57.04 ml/min Normal [facility] Comment on above: Performed By: #### L 501.080 #### [facility] [address] [place], [address] EST GFR - AA 96 mL/min Normal >60 [facility] Comment on above: Result Comment: Afri can [place] GFR Calc Performed By: #### L 501.080 #### [facility] [address] [place], [address] GAP 3 Low 5-15 [facility] Comment on above: Performed By: #### L 501.080 #### [facility] [address] [place], [address] GFR/1.73 sq M.predicted among non-blacks MDRD (S/P/Bld) [Vol rate/Area] 80 mL/min/{1.73_m2} Normal >60 [facility] Comment on above: Result Comment: Non- GFR Calc Performed By: #### L 501.080 #### [facility] [address] [place], [address] Glucose [Mass/Vol] 159 mg/dL High 74-106 [facility] Comment on above: Result Comment: Fast ing Glucose result greater than or equal to 126 mg/dL suggests DIABETES MELLITUS per A.D.A. criteria. Performed By: #### L 501.080 #### [facility] [address] [place], [address] Potassium [Moles/Vol] 4.7 mmol/L Normal 3.5-5.1 [facility] Comment on above: Performed By: #### L 501.080 #### [facility] [address] [place], [address] Sodium [Moles/Vol] 137 mmol/L Normal 136-145 [facility] Comment on above: Performed By: #### L 501.080 #### [facility] [address] [place], [address] Urea nitrogen [Mass/Vol] 21 mg/dL High 7-18 [facility] Comment on above: Performed By: #### L 501.080 #### [facility] [address] [place], [address] Bedside Glucoseon - FINGERSTICK GLU 131 mg/dL High 74-106 [facility] Comment on above: Result Comment: MARIO GEMENT OF PATIENT CARE PER NURSING PROTOCOL Performed By: #### L 501.080 #### [facility] [address] [place], [address] FINGERSTICK GLU 158 mg/dL High 74-106 [facility] Comment on above: Result Comment: MARIO GEMENT OF PATIENT CARE PER NURSING PROTOCOL Performed By: #### L 501.080 #### [facility] [address] [place], [address] FINGERSTICK GLU 135 mg/dL High 74-106 [facility] Comment on above: Result Comment: MARIO GEMENT OF PATIENT CARE PER NURSING PROTOCOL Performed By: #### L 501.080 ####[facility] [address] [place], [address] CBC W/Diff, Automatedon -0 Absolute Lymph 1.79 X10 3/uL Normal 0.83-4.51 [facility] Comment on above: Performed By: #### L 501.080 #### [facility] [address] [place], [address] Absolute Neut 6.8 X10 3/uL Normal 2.0-7.7 [facility] Comment on above: Performed By: #### L 501.080 #### [facility] [address] [place], [address] Basophils/100 WBC (Bld) 0.7 % Normal 0-1 [facility] Comment on above: Performed By: #### L 501.080 #### [facility] [address] [place], [address] Eosinophils/100 WBC (Bld) 2.3 % Normal 0-5 [facility] Comment on above: Performed By: #### L 501.080 #### [facility] [address] [place], [address] Erythrocyte distribution width (RBC) [Ratio] 14.4 % Normal 11.6-14.6 [facility] Comment on above: Performed By: #### L 501.080 #### [facility] [address] [place], [address] Hematocrit (Bld) [Volume fraction] 41.5 % Normal 37-47 [facility] Comment on above: Performed By: #### L 501.080 #### [facility] [address] [place], [address] Hemoglobin (Bld) [Mass/Vol] 12.6 g/dL Normal 12.0-15.0 [facility] Comment on above: Performed By: #### L 501.080 #### [facility] [address] [place], [address] IG% 0.400 Normal 0.0-0.9 [facility] Comment on above: Result Comment: IG% - Immature Granulocytes (promyelocytes, myelocytes and metamyelocytes) > 1% indicates that a LEFT SHIFT is Present. Performed By: #### L 501.080 #### [facility] [address] [place], [address] Lymphocytes/100 WBC (Bld) 18.2 % Low 19-41 [facility] Comment on above: Performed By: #### L 501.080 #### [facility] [address] [place], [address] MCH (RBC) [Entitic mass] 27.5 pg Normal 27.0-32.0 [facility] Comment on above: Performed By: #### L 501.080 #### [facility] [address] [place], [address] MCHC (RBC) [Mass/Vol] 30.4 g/dL Low 32-36 [facility] Comment on above: Performed By: #### L 501.080 #### [facility] [address] [place], [address] MCV (RBC) [Entitic vol] 90.4 fL Normal 81-99 [facility] Comment on above: Performed By: #### L 501.080 #### [facility] [address] [place], [address] Monocytes/100 WBC (Bld) 8.9 % Normal 0-10 [facility] Comment on above: Performed By: #### L 501.080 #### [facility] [address] [place], [address] Neutrophils/100 WBC (Bld) 69.5 % Normal 47-70 [facility] [facility] Comment on above: Performed By: #### L 501.080 #### [facility] [address] [place], [address] Nucleated RBC (Bld) [#/Vol] 0 10*3/uL Normal 0-5 [facility] Comment on above: Performed By: #### L 501.080 #### [facility] [address] [place], [address] Platelet mean volume (Bld) [Entitic vol] 10.5 fL Normal 6.2-12.0 [facility] Comment on above: Performed By: #### L 501.080 #### [facility] [address] [place], [address] Platelets (Bld) [#/Vol] 438 10*3/uL Normal 150-450 [facility] Comment on above: Performed By: #### L 501.080 #### [facility] [address] [place], [address] RBC (Bld) [#/Vol] 4.59 10*6/uL Normal 4.2-5.4 [facility] Comment on above: Performed By: #### L 501.080 #### [facility] [address] [place], [address] RDW SD 47.6 fl High 35.1-43.9 [facility] Comment on above: Performed By: #### L 501.080 #### [facility] [address] [place], [address] WBC (Bld) [#/Vol] 9.8 10*3/uL Normal 4.4-11.0 [facility] Comment on above: Performed By: #### L 501.080 #### [facility] [address] [place], [address] Basic Metabolic Profile (BMP )on 10-27-2023 BUN/CRE 24.2 RATIO High 10-20 [facility] Comment on above: Performed By: #### L 501.080 #### [facility] [address] [place], [address] CA,Total 10.4 mg/dL High 8.5-10.1 [facility] Comment on above: Performed By: #### L 501.080 #### [facility] [address] [place], [address] Chloride [Moles/Vol] 103 mmol/L Normal 98-107 [facility] Comment on above: Performed By: #### L 501.080 #### [facility] [address] [place], [address] CO2 [Moles/Vol] 28.0 mmol/L Normal 21.0-32.0 [facility] Comment on above: Performed By: #### L 501.080 #### [facility] [address] [place], [address] Creatinine [Mass/Vol] 0.74 mg/dL Normal 0.55-1.02 [facility] Comment on above: Result Comment: The validity of the calculated GFR GFRAA in patients over 70 years has not been determined. Clinical correlation is essential. Performed By: #### L 501.080 #### [facility] [address] [place], [address] ECRCL 57.04 ml/min Normal [facility] Comment on above: Performed By: #### L 501.080 #### [facility] [address] [place], [address] EST GFR - AA 97 mL/min Normal >60 [facility] Comment on above: Result Comment: Afri can [place] GFR Calc Performed By: #### L 501.080 #### [facility] [address] [place], [address] GAP 5 Normal 5-15 [facility] Comment on above: Performed By: #### L 501.080 #### [facility] [address] [place], [address] GFR/1.73 sq M.predicted among non-blacks MDRD (S/P/Bld) [Vol rate/Area] 80 mL/min/{1.73_m2} Normal >60 [facility] Comment on above: Result Comment: Non- GFR Calc Performed By: #### L 501.080 #### [facility] [address] [place], [address] Glucose [Mass/Vol] 153 mg/dL High 74-106 [facility] Comment on above: Result Comment: Fast ing Glucose result greater than or equal to 126 mg/dL suggests DIABETES MELLITUS per A.D.A. criteria. Performed By: #### L 501.080 #### [facility] [address] [place], [address] Potassium [Moles/Vol] 4.7 mmol/L Normal 3.5-5.1 [facility] Comment on above: Performed By: #### L 501.080 #### [facility] [address] [place], [address] Sodium [Moles/Vol] 136 mmol/L Normal 136-145 [facility] Comment on above: Performed By: #### L 501.080 #### [facility] [address] [place], [address] Urea nitrogen [Mass/Vol] 18 mg/dL Normal 7-18 [facility] Comment on above: Performed By: #### L 501.080 #### [facility] [address] [place], [address] Bedside Glucoseon 10-27-2023 FINGERSTICK GLU 137 mg/dL High [address] [place] [address] Comment on above: Result Comment: MARIO GEMENT OF PATIENT CARE PER NURSING PROTOCOL Performed By: #### L 501.080 ####[facility] [address] [place], [address] FINGERSTICK GLU 151 mg/dL High -106 [facility] Comment on above: Result Comment: MARIO GEMENT OF PATIENT CARE PER NURSING PROTOCOL Performed By: #### L 501.080 ####[facility] [address] [place], [address] FINGERSTICK GLU 118 mg/dL High 74-106 [facility] Comment on above: Result Comment: MARIO GEMENT OF PATIENT CARE PER NURSING PROTOCOL Performed By: #### L 501.080 #### [facility] [address] [place], [address] FINGERSTICK GLU 124 mg/dL High 74-106 [facility] Comment on above: Result Comment: MARIO GEMENT OF PATIENT CARE PER NURSING PROTOCOL Performed By: #### L 501.080 #### [facility] [address] [place], [address] CBC W/Diff, Automatedon 06-0 5-2023 Absolute Lymph 1.78 X10 3/uL Normal 0.83-4.51 [facility] Comment on above: Performed By: #### L 501.080 #### [facility] [address] [place], [address] Absolute Neut 6.0 X10 3/uL Normal 2.0-7.7 [facility] Comment on above: Performed By: #### L 501.080 #### [facility] [address] [place], [address] Basophils/100 WBC (Bld) 0.8 % Normal 0-1 [facility] Comment on above: Performed By: #### L 501.080 #### [facility] [address] [place], [address] Eosinophils/100 WBC (Bld) 3.0 % Normal 0-5 [facility] Comment on above: Performed By: #### L 501.080 #### [facility] [address] [place], [address] Erythrocyte distribution width (RBC) [Ratio] 14.3 % Normal 11.6-14.6 [facility] Comment on above: Performed By: #### L 501.080 #### [facility] [address] [place], [address] Hematocrit (Bld) [Volume fraction] 41.9 % Normal 37-47 [facility] Comment on above: Performed By: #### L 501.080 #### [facility] [address] [place], [address] Hemoglobin (Bld) [Mass/Vol] 12.6 g/dL Normal 12.0-15.0 [facility] Comment on above: Performed By: #### L 501.080 #### [facility] [address] [place], [address] IG% 0.400 Normal 0.0-0.9 [facility] Comment on above: Result Comment: IG% - Immature Granulocytes (promyelocytes, myelocytes and metamyelocytes) > 1% indicates that a LEFT SHIFT is Present. Performed By: #### L 501.080 #### [facility] [address] [place], [address] Lymphocytes/100 WBC (Bld) 19.7 % Normal 19-41 [facility] Comment on above: Performed By: #### L 501.080 #### [facility] [address] [facility] [place], [address] MCH (RBC) [Entitic mass] 27.3 pg Normal 27.0-32.0 [facility] Comment on above: Performed By: #### L 501.080 #### [facility] [address] [place], [address] MCHC (RBC) [Mass/Vol] 30.1 g/dL Low 32-36 [facility] Comment on above: Performed By: #### L 501.080 #### [facility] [address] [place], [address] MCV (RBC) [Entitic vol] 90.7 fL Normal 81-99 [facility] Comment on above: Performed By: #### L 501.080 #### [facility] [address] [place], [address] Monocytes/100 WBC (Bld) 9.8 % Normal 0-10 [facility] Comment on above: Performed By: #### L 501.080 #### [facility] [address] [place], [address] Neutrophils/100 WBC (Bld) 66.3 % Normal 47-70 [facility] Comment on above: Performed By: #### L 501.080 #### [facility] [address] [place], [address] Nucleated RBC (Bld) [#/Vol] 0 10*3/uL Normal 0-5 [facility] Comment on above: Performed By: #### L 501.080 #### [facility] [address] [place], [address] Platelet mean volume (Bld) [Entitic vol] 10.8 fL Normal 6.2-12.0 [facility] Comment on above: Performed By: #### L 501.080 #### [facility] [address] [place], [address] Platelets (Bld) [#/Vol] 421 10*3/uL Normal 150-450 [facility] Comment on above: Performed By: #### L 501.080 #### [facility] [address] [place], [address] RBC (Bld) [#/Vol] 4.62 10*6/uL Normal 4.2-5.4 [facility] Comment on above: Performed By: #### L 501.080 #### [facility] [address] [place], [address] RDW SD 48.1 fl High 35.1-43.9 [facility] Comment on above: Performed By: #### L 501.080 #### [facility] [address] [place], [address] WBC (Bld) [#/Vol] 9.1 10*3/uL Normal 4.4-11.0 [facility] Comment on above: Performed By: #### L 501.080 #### [facility] [address] [place], [address] Basic Metabolic Profile (BMP )on 10-26-2023 BUN/CRE 22.8 RATIO High 10-20 [facility] Comment on above: Performed By: #### L 501.080 #### [facility] [address] [place], [address] CA,Total 10.5 mg/dL High 8.5-10.1 [facility] Comment on above: Performed By: #### L 501.080 #### [facility] [address] [place], [address] Chloride [Moles/Vol] 107 mmol/L Normal 98-107 [facility] Comment on above: Performed By: #### L 501.080 #### [facility] [address] [place], [address] CO2 [Moles/Vol] 27.0 mmol/L Normal 21.0-32.0 [facility] Comment on above: Performed By: #### L 501.080 #### [facility] [address] [place], [address] Creatinine [Mass/Vol] 0.61 mg/dL Normal 0.55-1.02 [facility] Comment on above: Result Comment: The validity of the calculated GFR GFRAA in patients over 70 years has not been determined. Clinical correlation is essential. Performed By: #### L 501.080 #### [facility] [address] [place], [address] ECRCL 57.04 ml/min Normal [facility] Comment on above: Performed By: #### L 501.080 #### [facility] [address] [place], [address] EST GFR - AA 122 mL/min Normal >60 [facility] Comment on above: Result Comment: Afri can [place] GFR Calc Performed By: #### L 501.080 #### [facility] [address] [place], [address] GAP 4 Low 5-15 [facility] Comment on above: Performed By: #### L 501.080 #### [facility] [address] [place], [address] GFR/1.73 sq M.predicted among non-blacks MDRD (S/P/Bld) [Vol rate/Area] 101 mL/min/{1.73_m2} Normal >60 [facility] Comment on above: Result Comment: Non- GFR Calc Performed By: #### L 501.080 #### [facility] [address] [place], [address] Glucose [Mass/Vol] 107 mg/dL High 74-106 [facility] Comment on above: Result Comment: Fast ing Glucose result from 100 to 125 mg/dL suggests IMPAIRED HOMEOSTASIS per A.D.A. criteria. Performed By: #### L 501.080 #### [facility] [address] [place], [address] Potassium [Moles/Vol] 4.8 mmol/L Normal 3.5-5.1 [facility] Comment on above: Performed By: #### L 501.080 #### [facility] [address] [place], [address] Sodium [Moles/Vol] 138 mmol/L Normal 136-145 [facility] Comment on above: Performed By: #### L 501.080 #### [facility] [address] [place], [address] Urea nitrogen [Mass/Vol] 14 mg/dL Normal 7-18 [facility] Comment on above: Performed By: #### L 501.080 #### [facility] [address] [place], [address] Bedside Glucoseon - FINGERSTICK GLU 153 mg/dL High 74-106 [facility] Comment on above: Result Comment: MARIO GEMENT OF PATIENT CARE PER NURSING PROTOCOL Performed By: #### L 501.080 #### [facility] [address] [place], [address] FINGERSTICK GLU 143 mg/dL High 74-106 [facility] Comment on above: Result Comment: MARIO GEMENT OF PATIENT CARE PER NURSING PROTOCOL Performed By: #### L 501.080 #### [facility] [address] [place], [address] FINGERSTICK GLU 186 mg/dL High 74-106 [facility] Comment on above: Result Comment: MARIO GEMENT OF PATIENT CARE PER NURSING PROTOCOL Performed By: #### L 501.080 #### [facility] [address] [place], [address] FINGERSTICK GLU 152 mg/dL High 74-106 [facility] Comment on above: Result Comment: MARIO GEMENT OF PATIENT CARE PER NURSING PROTOCOL Performed By: #### L 506.1000, L500.2500, L100.0500 #### [facility] [address] [place], [address] CBC W/Diff, Automatedon 06-0 Absolute Lymph 1.76 X10 3/uL Normal 0.83-4.51 [facility] Comment on above: Performed By: #### L 501.080 #### [facility] [address] [place], [address] Absolute Neut 6.8 X10 3/uL Normal 2.0-7.7 [facility] Comment on above: Performed By: #### L 501.080 #### [facility] [address] [place], [address] Basophils/100 WBC (Bld) 0.5 % Normal 0-1 [facility] Comment on above: Performed By: #### L 501.080 #### [facility] [address] [place], [address] Eosinophils/100 WBC (Bld) 3.0 % Normal 0-5 [facility] Comment on above: Performed By: #### L 501.080 #### [facility] [address] [place], [address] Erythrocyte distribution width (RBC) [Ratio] 14.5 % Normal 11.6-14.6 [facility] Comment on above: Performed By: #### L 501.080 #### [facility] [address] [place], [address] Hematocrit (Bld) [Volume fraction] 41.3 % Normal 37-47 [facility] Comment on above: Performed By: #### L 501.080 #### [facility] [address] [place], [address] Hemoglobin (Bld) [Mass/Vol] 12.5 g/dL Normal 12.0-15.0 [facility] Comment on above: Performed By: #### L 501.080 #### [facility] [address] [place], [address] IG% 0.300 Normal 0.0-0.9 [facility] Comment on above: Result Comment: IG% - Immature Granulocytes (promyelocytes, myelocytes and metamyelocytes) > 1% indicates that a LEFT SHIFT is Present. Performed By: #### L 501.080 #### [facility] [address] [place], [address] Lymphocytes/100 WBC (Bld) 18.0 % Low 19-41 [facility] Comment on above: Performed By: #### L 501.080 #### [facility] [address] [place], [address] MCH (RBC) [Entitic mass] 27.2 pg Normal 27.0-32.0 [facility] Comment on above: Performed By: #### L 501.080 #### [facility] [address] [place], [address] MCHC (RBC) [Mass/Vol] 30.3 g/dL Low 32-36 [facility] Comment on above: Performed By: #### L 501.080 #### [facility] [address] [place], [address] MCV (RBC) [Entitic vol] 89.8 fL Normal 81-99 [facility] Comment on above: Performed By: #### L 501.080 #### [facility] [address] [place], [address] Monocytes/100 WBC (Bld) 9.1 % Normal 0-10 [facility] Comment on above: Performed By: #### L 501.080 #### [facility] [address] [place], [address] Neutrophils/100 WBC (Bld) 69.1 % Normal 47-70 [facility] Comment on above: Performed By: #### L 501.080 #### [facility] [address] [place], [address] Nucleated RBC (Bld) [#/Vol] 0 10*3/uL Normal 0-5 [facility] Comment on above: Performed By: #### L 501.080 #### [facility] [address] [place], [address] Platelet mean volume (Bld) [Entitic vol] 10.8 fL Normal 6.2-12.0 [facility] Comment on above: Performed By: #### L 501.080 #### [facility] [address] [place], [address] Platelets (Bld) [#/Vol] 402 10*3/uL Normal 150-450 [facility] Comment on above: Performed By: #### L 501.080 #### [facility] [address] [place], [address] RBC (Bld) [#/Vol] 4.60 10*6/uL Normal 4.2-5.4 [facility] Comment on above: Performed By: #### L 501.080 #### [facility] [address] [place], [address] RDW SD 47.4 fl High 35.1-43.9 [facility] Comment on above: Performed By: #### L 501.080 #### [facility] [address] [place], [address] WBC (Bld) [#/Vol] 9.8 10*3/uL Normal 4.4-11.0 [facility] Comment on above: Performed By: #### L 501.080 #### [facility] [address] [place], [address] Magnesiumon 10-26-2023 Magnesium [Mass/Vol] 1.9 mg/dL Normal 1.6-2.6 [facility] Comment on above: Performed By: #### L 501.080 #### [facility] [address] [place], [address] Phosphoruson 10-26-2023 Phosphate [Mass/Vol] 3.1 mg/dL Normal 2.5-4.9 [facility] Comment on above: Performed By: #### L 501.080 #### [facility] [address] [place], [address] Basic Metabolic Profile (BMP )on 10-25-2023 BUN/CRE 26.4 RATIO High 10-20 [facility] Comment on above: Performed By: #### L 501.080 #### [facility] [address] [place], [address] CA,Total 9.7 mg/dL Normal 8.5-10.1 [facility] Comment on above: Performed By: #### L 501.080 #### [facility] [address] [place], [address] Chloride [Moles/Vol] 107 mmol/L Normal 98-107 [facility] Comment on above: Performed By: #### L 501.080 #### [facility] [address] [place], [address] CO2 [Moles/Vol] 26.0 mmol/L Normal 21.0-32.0 [facility] Comment on above: Performed By: #### L 501.080 #### [facility] [address] [place], [address] Creatinine [Mass/Vol] 0.57 mg/dL Normal 0.55-1.02 [facility] Comment on above: Result Comment: The validity of the calculated GFR GFRAA in patients over 70 years has not been determined. Clinical correlation is essential. Performed By: #### L 501.080 #### [facility] [address] [place], [address] ECRCL 57.04 ml/min Normal [facility] Comment on above: Performed By: #### L 501.080 #### [facility] [address] [place], [address] EST GFR - AA 133 mL/min Normal >60 [facility] Comment on above: Result Comment: Afri can [place] GFR Calc Performed By: #### L 501.080 #### [facility] [address] [place], [address] GAP 4 Low 5-15 [facility] Comment on above: Performed By: #### L 501.080 #### [facility] [address] [place], [address] GFR/1.73 sq M.predicted among non-blacks MDRD (S/P/Bld) [Vol rate/Area] 110 mL/min/{1.73_m2} Normal >60 [facility] Comment on above: Result Comment: Non- GFR Calc Performed By: #### L 501.080 #### [facility] [address] [place], [address] Glucose [Mass/Vol] 140 mg/dL High 74-106 [facility] Comment on above: Result Comment: Fast ing Glucose result greater than or equal to 126 mg/dL suggests DIABETES MELLITUS per A.D.A. criteria. Performed By: #### L 501.080 #### [facility] [address] [place], [address] Potassium [Moles/Vol] 4.3 mmol/L Normal 3.5-5.1 [facility] Comment on above: Performed By: #### L 501.080 #### [facility] [address] [place], [address] Sodium [Moles/Vol] 137 mmol/L Normal 136-145 [facility] Comment on above: Performed By: #### L 501.080 #### [facility] [address] [place], [address] Urea nitrogen [Mass/Vol] 15 mg/dL Normal 7-18 [facility] Comment on above: Performed By: #### L 501.080 #### [facility] [address] [place], [address] Bedside Glucoseon 10-25-2023 FINGERSTICK GLU 117 mg/dL High 74-106 [facility] Comment on above: Result Comment: MARIO GEMENT OF PATIENT CARE PER NURSING PROTOCOL Performed By: #### L 501.080 #### [facility] [address] [place], [address] FINGERSTICK GLU 103 mg/dL Normal 74-106 [facility] Comment on above: Result Comment: MARIO GEMENT OF PATIENT CARE PER NURSING PROTOCOL Performed By: #### L 506.1000, L500.2500, L100.0500 #### [facility] [address] [place], [address] FINGERSTICK GLU 177 mg/dL High 74-106 [facility] Comment on above: Result Comment: MARIO GEMENT OF PATIENT CARE PER NURSING PROTOCOL Performed By: #### L 506.1000, L500.2500, L100.0500 #### [facility] [address] [place], [address] FINGERSTICK GLU 149 mg/dL High 74-106 [facility] Comment on above: Result Comment: MARIO GEMENT OF PATIENT CARE PER NURSING PROTOCOL Performed By: #### L 501.080 #### [facility] [address] [place], [address] CBC-Complete Blood Cnt No Di ffon 10-25-2023 Erythrocyte distribution width (RBC) [Ratio] 14.5 % Normal 11.6-14.6 [facility] Comment on above: Performed By: #### L 501.080 #### [facility] [address] [place], [address] Hematocrit (Bld) [Volume fraction] 39.1 % Normal 37-47 [facility] Comment on above: Performed By: #### L 501.080 #### [facility] [address] [place], [address] Hemoglobin (Bld) [Mass/Vol] 12.0 g/dL Normal 12.0-15.0 [facility] Comment on above: Performed By: #### L 501.080 #### [facility] [address] [place], [address] MCH (RBC) [Entitic mass] 27.6 pg Normal 27.0-32.0 [facility] Comment on above: Performed By: #### L 501.080 #### [facility] [address] [place], [address] MCHC (RBC) [Mass/Vol] 30.7 g/dL Low 32-36 [facility] Comment on above: Performed By: #### L 501.080 #### [facility] [address] [place], [address] MCV (RBC) [Entitic vol] 90.1 fL Normal 81-99 [facility] Comment on above: Performed By: #### L 501.080 #### [facility] [address] [place], [address] Platelet mean volume (Bld) [Entitic vol] 11.0 fL Normal 6.2-12.0 [facility] Comment on above: Performed By: #### L 501.080 #### [facility] [address] [place], [address] Platelets (Bld) [#/Vol] 374 10*3/uL Normal 150-450 [facility] Comment on above: Performed By: #### L 501.080 #### [facility] [address] [place], [address] RBC (Bld) [#/Vol] 4.34 10*6/uL Normal 4.2-5.4 [facility] Comment on above: Performed By: #### L 501.080 #### [facility] [address] [place], [address] RDW SD 48.3 fl High 35.1-43.9 [facility] Comment on above: Performed By: #### L 501.080 #### [facility] [address] [place], [address] WBC (Bld) [#/Vol] 9.3 10*3/uL Normal 4.4-11.0 [facility] Comment on above: Performed By: #### L 501.080 #### [facility] [address] [place], [address] Bedside Glucoseon 10-24-2023 FINGERSTICK GLU 184 mg/dL High 74-106 [facility] Comment on above: Result Comment: MARIO GEMENT OF PATIENT CARE PER NURSING PROTOCOL Performed By: #### L 501.080 #### [facility] [address] [place], [address] FINGERSTICK GLU 139 mg/dL High 74-106 [facility] Comment on above: Result Comment: MARIO GEMENT OF PATIENT CARE PER NURSING PROTOCOL Performed By: #### L 501.080 ####[facility] [address] [place], [address] FINGERSTICK GLU 187 mg/dL High 74-106 [facility] Comment on above: Result Comment: MARIO GEMENT OF PATIENT CARE PER NURSING PROTOCOL Performed By: #### L 501.080 #### [facility] [address] [place], [address] Urine Cultureon 10-24-2023 URC Klebsiella pneumoniae sp pneum [place] Count 80,000-100,000 Klebsiella pneumoniae sp pneum: REACTION Ampicillin Islt RUTH ANN >=32 R Ampicillin+Sulbac Islt RUTH ANN 16 I ceFAZolin Islt RUTH ANN 32 R Cefepime Islt RUTH ANN <=0.12 S cefTRIAXone Islt RUTH ANN <=0.25 S Ciprofloxacin Islt RUTH ANN <=0.25 S Ertapenem Islt RUTH ANN <=0.12 S B-Lactamase Extended Susc Islt NEG Gentamicin Islt RUTH ANN <=1 S Imipenem Islt RUTH ANN 1 S levoFLOXacin Islt RUTH ANN <=0.12 S Nitrofurantoin Islt RUTH ANN >=512 R Pip+Tazo Islt RUTH ANN 8 S Tobramycin Islt RUTH ANN <=1 S TMP SMX Islt RUTH ANN <=20 S Normal [facility] Comment on above: Performed By: #### M 100.2200 ####[facility] [address] [place], [address] Basic Metabolic Profile (BMP )on 10-23-2023 BUN/CRE 31.2 RATIO High 10-20 [facility] Comment on above: Performed By: #### L 500.2500, L501.9985, L100.0100 ####[facility] [address] [place], [address] CA,Total 9.5 mg/dL Normal 8.5-10.1 [facility] Comment on above: Performed By: #### L 500.2500, L501.9985, L100.0100 ####[facility] [address] [place], [address] Chloride [Moles/Vol] 108 mmol/L High 98-107 [facility] Comment on above: Performed By: #### L 500.2500, L501.9985, L100.0100 ####[facility] [address] [place], [address] CO2 [Moles/Vol] 23.0 mmol/L Normal 21.0-32.0 [facility] Comment on above: Performed By: #### L 500.2500, L501.9985, L100.0100 ####[facility] [address] [place], [address] Creatinine [Mass/Vol] 0.70 mg/dL Normal 0.55-1.02 [facility] Comment on above: Result Comment: The validity of the calculated GFR GFRAA in patients over 70 years has not been determined. Clinical correlation is essential. Performed By: #### L 500.2500, L501.9985, L100.0100 ####[facility] [address] [place], [address] ECRCL 57.04 ml/min Normal [facility] Comment on above: Performed By: #### L 500.2500, L501.9985, L100.0100 ####[facility] [address] [place], [address] EST GFR - AA 104 mL/min Normal >60 [facility] Comment on above: Result Comment: Afri can Bol[place]ian GFR Calc Performed By: #### L 500.2500, L501.9985, L100.0100 ####[facility] [address] [place], [address] GAP 8 Normal 5-15 [facility] Comment on above: Performed By: #### L 500.2500, L501.9985, L100.0100 ####[facility] [address] [place], [address] GFR/1.73 sq M.predicted among non-blacks MDRD (S/P/Bld) [Vol rate/Area] 86 mL/min/{1.73_m2} Normal >60 [facility] Comment on above: Result Comment: Non- GFR Calc Performed By: #### L 500.2500, L501.9985, L100.0100 ####[facility] [address] [place], [address] Glucose [Mass/Vol] 90 mg/dL Normal 74-106 [facility] Comment on above: Performed By: #### L 500.2500, L501.9985, L100.0100 ####[facility] [address] [place], [address] Potassium [Moles/Vol] 3.9 mmol/L Normal 3.5-5.1 [facility] Comment on above: Performed By: #### L 500.2500, L501.9985, L100.0100 ####[facility] [address] [place], [address] Sodium [Moles/Vol] 139 mmol/L Normal 136-145 [facility] Comment on above: Performed By: #### L 500.2500, L501.9985, L100.0100 ####[facility] [address] [place], [address] Urea nitrogen [Mass/Vol] 22 mg/dL High 7-18 [facility] Comment on above: Performed By: #### L 500.2500, L501.9985, L100.0100 ####[facility] [address] [place], [address] Bedside Glucoseon --2023 FINGERSTICK GLU 145 mg/dL High 74-106 [facility] Comment on above: Result Comment: MARIO GEMENT OF PATIENT CARE PER NURSING PROTOCOL Performed By: #### L 501.080 #### [facility] [address] [place], [address] FINGERSTICK GLU 231 mg/dL High 74-106 [facility] Comment on above: Result Comment: MARIO GEMENT OF PATIENT CARE PER NURSING PROTOCOL Performed By: #### L 501.080 #### [facility] [address] [place], [address] CBC W/Diff, Automatedon 06-0 Absolute Lymph 1.81 X10 3/uL Normal 0.83-4.51 [facility] Comment on above: Performed By: #### L 500.2500, L501.9985, L100.0100 ####[facility] [address] [place], [address] Absolute Neut 8.5 X10 3/uL High 2.0-7.7 [facility] Comment on above: Performed By: #### L 500.2500, L501.9985, L100.0100 ####[facility] [address] [place], [address] Basophils/100 WBC (Bld) 0.5 % Normal 0-1 [facility] Comment on above: Performed By: #### L 500.2500, L501.9985, L100.0100 ####[facility] [address] [place], [address] Eosinophils/100 WBC (Bld) 2.9 % Normal 0-5 [facility] Comment on above: Performed By: #### L 500.2500, L501.9985, L100.0100 ####[facility] [address] [place], [address] Erythrocyte distribution width (RBC) [Ratio] 14.2 % Normal 11.6-14.6 [facility] Comment on above: Performed By: #### L 500.2500, L501.9985, L100.0100 ####[facility] [address] [place], [address] Hematocrit (Bld) [Volume fraction] 40.7 % Normal 37-47 [facility] Comment on above: Performed By: #### L 500.2500, L501.9985, L100.0100 ####[facility] [address] [place], [address] Hemoglobin (Bld) [Mass/Vol] 12.7 g/dL Normal 12.0-15.0 [facility] Comment on above: Performed By: #### L 500.2500, L501.9985, L100.0100 ####[facility] [address] [place], [address] IG% 0.300 Normal 0.0-0.9 [facility] Comment on above: Result Comment: IG% - Immature Granulocytes (promyelocytes, myelocytes and metamyelocytes) > 1% indicates that a LEFT SHIFT is Present. Performed By: #### L 500.2500, L501.9985, L100.0100 ####[facility] [address] [place], [address] Lymphocytes/100 WBC (Bld) 15.6 % Low 19-41 [facility] Comment on above: Performed By: #### L 500.2500, L501.9985, L100.0100 ####[facility] [address] [place], [address] MCH (RBC) [Entitic mass] 27.5 pg Normal 27.0-32.0 [facility] Comment on above: Performed By: #### L 500.2500, L501.9985, L100.0100 ####[facility] [address] [place], [address] MCHC (RBC) [Mass/Vol] 31.2 g/dL Low 32-36 [facility] Comment on above: Performed By: #### L 500.2500, L501.9985, L100.0100 ####[facility] [address] [place], [address] MCV (RBC) [Entitic vol] 88.3 fL Normal 81-99 [facility] Comment on above: Performed By: #### L 500.2500, L501.9985, L100.0100 ####[facility] [address] [place], [address] Monocytes/100 WBC (Bld) 7.8 % Normal 0-10 [facility] Comment on above: Performed By: #### L 500.2500, L501.9985, L100.0100 ####[facility] [address] [place], [address] Neutrophils/100 WBC (Bld) 72.9 % High 47-70 [facility] Comment on above: Performed By: #### L 500.2500, L501.9985, L100.0100 ####[facility] [address] [place], [address] Nucleated RBC (Bld) [#/Vol] 0 10*3/uL Normal 0-5 [facility] Comment on above: Performed By: #### L 500.2500, L501.9985, L100.0100 ####[facility] [address] [place], [address] Platelet mean volume (Bld) [Entitic vol] 10.9 fL Normal 6.2-12.0 [facility] Comment on above: Performed By: #### L 500.2500, L501.9985, L100.0100 ####[facility] [address] [place], [address] Platelets (Bld) [#/Vol] 423 10*3/uL Normal 150-450 [facility] Comment on above: Performed By: #### L 500.2500, L501.9985, L100.0100 ####[facility] [address] [place], [address] RBC (Bld) [#/Vol] 4.61 10*6/uL Normal 4.2-5.4 [facility] Comment on above: Performed By: #### L 500.2500, L501.9985, L100.0100 ####[facility] [address] [place], [address] RDW SD 46.2 fl High 35.1-43.9 [facility] Comment on above: Performed By: #### L 500.2500, L501.9985, L100.0100 ####[facility] [address] [place], [address] WBC (Bld) [#/Vol] 11.6 10*3/uL High 4.4-11.0 [facility] Comment on above: Performed By: #### L 500.2500, L501.9985, L100.0100 ####[facility] [address] [place], [address] Hemoglobin A1con 10-23-2023 HbA1c (Bld) [Mass fraction] 5.7 % High 3.8-5.6 [facility] Comment on above: Result Comment: Norm al < 5.7 % Prediabetic 5.7 - 6.4 % Diabetic >or= 6.5 % Please note range changes. Performed By: #### L 500.2500, L501.2245, L100.0100 ####[facility] [address] [place], [address] 12 Lead EKGon 10-22-2023 12 Lead EKG [facility] [address] [place] [address] 12 Lead EKG 10/22/23 1237 MR#: [id number] Acct: [id number] Name: GRACE RUSH Rep #: [id number] : 1945 78 From: Karson Gold MD Attending Dr: Dr. Itz Gamez DO Status : ADM IN Ordering Dr: Vanessa Ramsey MD Date: 10/22/23 Location: [facility] Sex: F C Admitted: 10/23/23 Test Reason : Blood Pressure : / mmHG Vent. Rate : 082 BPM Atrial Rate : 082 BPM P-R Int : 160 ms QRS Dur : 068 ms QT Int : 358 ms P-R-T Axes : 036 -30 071 degrees QTc Int : 418 ms Sinus rhythm with Premature supraventricular complexes Left axis deviation Abnormal ECG Confirmed by KARSON GOLD MD ([id number]), publication editor WOO DEAL ([id number]) on 10/25/2023 6:50:21 AM Referred By: SRIRAM Confirmed By:KARSON GOLD MD 10/25/23 0650 Date Karson Gold MD CC: Dr. Itz Gamez DO; Dr. Vanessa Ramsey MD; DAT Dale Signed Normal [facility] Basic Metabolic Profile (BMP )on 10-22-2023 BUN/CRE 29.6 RATIO High 10-20 [facility] Comment on above: Performed By: #### L 501.080 #### [facility] [address] [place], [address] CA,Total 9.8 mg/dL Normal 8.5-10.1 [facility] Comment on above: Performed By: #### L 501.080 #### [facility] [address] [place], [address] Chloride [Moles/Vol] 107 mmol/L Normal 98-107 [facility] Comment on above: Performed By: #### L 501.080 #### [facility] [address] [place], [address] CO2 [Moles/Vol] 26.0 mmol/L Normal 21.0-32.0 [facility] Comment on above: Performed By: #### L 501.080 #### [facility] [address] [place], [address] Creatinine [Mass/Vol] 0.71 mg/dL Normal 0.55-1.02 [facility] Comment on above: Result Comment: The validity of the calculated GFR GFRAA in patients over 70 years has not been determined. Clinical correlation is essential. Performed By: #### L 501.080 #### [facility] [address] [place], [address] ECRCL 57.11 ml/min Normal [facility] Comment on above: Performed By: #### L 501.080 #### [facility] [address] [place], [address] EST GFR - AA 103 mL/min Normal >60 [facility] Comment on above: Result Comment: Afri can [place]ian GFR Calc Performed By: #### L 501.080 #### [facility] [address] [place], [address] GAP 5 Normal 5-15 [facility] Comment on above: Performed By: #### L 501.080 #### [facility] [address] [place], [address] GFR/1.73 sq M.predicted among non-blacks MDRD (S/P/Bld) [Vol rate/Area] 85 mL/min/{1.73_m2} Normal >60 [facility] Comment on above: Result Comment: Non- GFR Calc Performed By: #### L 501.080 #### [facility] [address] [place], [address] Glucose [Mass/Vol] 117 mg/dL High 74-106 [facility] Comment on above: Result Comment: Fast ing Glucose result from 100 to 125 mg/dL suggests IMPAIRED HOMEOSTASIS per A.D.A. criteria. Performed By: #### L 501.080 #### [facility] [address] [place], [address] Potassium [Moles/Vol] 3.8 mmol/L Normal 3.5-5.1 [facility] Comment on above: Performed By: #### L 501.080 #### [facility] [address] [place], [address] Sodium [Moles/Vol] 138 mmol/L Normal 136-145 [facility] Comment on above: Performed By: #### L 501.080 #### [facility] [address] [place], [address] Urea nitrogen [Mass/Vol] 21 mg/dL High 7-18 [facility] Comment on above: Performed By: #### L 501.080 #### [facility] [address] [place], [address] Bedside Glucoseon 10-22-2023 FINGERSTICK GLU 113 mg/dL High 74-106 [facility] Comment on above: Result Comment: MARIO ZHENG OF PATIENT CARE PER NURSING PROTOCOL Performed By: #### L 501.080 #### [facility] [address] [place], [address] CBC W/Diff, Automatedon 05-3 -2023 Absolute Lymph 1.59 X10 3/uL Normal 0.83-4.51 [facility] Comment on above: Performed By: #### L 100.0100, L500.2500 ####[facility] [address] [place], [address] Absolute Neut 12.8 X10 3/uL High 2.0-7.7 [facility] Comment on above: Performed By: #### L 100.0100, L500.2500 ####[facility] [address] [place], [address] Basophils/100 WBC (Bld) 0.4 % Normal 0-1 [facility] Comment on above: Performed By: #### L 100.0100, L500.2500 ####[facility] [address] [place], [address] Eosinophils/100 WBC (Bld) 1.3 % Normal 0-5 [facility] Comment on above: Performed By: #### L 100.0100, L500.2500 ####[facility] [address] [place], [address] Erythrocyte distribution width (RBC) [Ratio] 13.8 % Normal 11.6-14.6 [facility] Comment on above: Performed By: #### L 100.0100, L500.2500 ####[facility] [address] [place], [address] Hematocrit (Bld) [Volume fraction] 41.6 % Normal 37-47 [facility] Comment on above: Performed By: #### L 100.0100, L500.2500 ####[facility] [address] [place], [address] Hemoglobin (Bld) [Mass/Vol] 13.1 g/dL Normal 12.0-15.0 [facility] Comment on above: Performed By: #### L 100.0100, L500.2500 ####[facility] [address] [place], [address] IG% 0.300 Normal 0.0-0.9 [facility] Comment on above: Result Comment: IG% - Immature Granulocytes (promyelocytes, myelocytes and metamyelocytes) > 1% indicates that a LEFT SHIFT is Present. Performed By: #### L 100.0100, L500.2500 ####[facility] [address] [place], [address] Lymphocytes/100 WBC (Bld) 10.2 % Low 19-41 [facility] Comment on above: Performed By: #### L 100.0100, L500.2500 ####[facility] [address] [place], [address] MCH (RBC) [Entitic mass] 27.8 pg Normal 27.0-32.0 [facility] Comment on above: Performed By: #### L 100.0100, L500.2500 ####[facility] [address] [place], [address] MCHC (RBC) [Mass/Vol] 31.5 g/dL Low 32-36 [facility] Comment on above: Performed By: #### L 100.0100, L500.2500 ####[facility] [address] [place], [address] MCV (RBC) [Entitic vol] 88.1 fL Normal 81-99 [facility] Comment on above: Performed By: #### L 100.0100, L500.2500 ####[facility] [address] [place], [address] Monocytes/100 WBC (Bld) 6.1 % Normal 0-10 [facility] Comment on above: Performed By: #### L 100.0100, L500.2500 ####[facility] [address] [place], [address] Neutrophils/100 WBC (Bld) 81.7 % High 47-70 [facility] Comment on above: Performed By: #### L 100.0100, L500.2500 ####[facility] [address] [place], [address] Nucleated RBC (Bld) [#/Vol] 0 10*3/uL Normal 0-5 [facility] Comment on above: Performed By: #### L 100.0100, L500.2500 ####[facility] [address] [place], [address] Platelet mean volume (Bld) [Entitic vol] 10.7 fL Normal 6.2-12.0 [facility] Comment on above: Performed By: #### L 100.0100, L500.2500 ####[facility] [address] [place], [address] Platelets (Bld) [#/Vol] 400 10*3/uL Normal 150-450 [facility] Comment on above: Performed By: #### L 100.0100, L500.2500 ####[facility] [address] [place], [address] RBC (Bld) [#/Vol] 4.72 10*6/uL Normal 4.2-5.4 [facility] Comment on above: Performed By: #### L 100.0100, L500.2500 ####[facility] [address] [place], [address] RDW SD 44.8 fl High 35.1-43.9 [facility] Comment on above: Performed By: #### L 100.0100, L500.2500 ####[facility] [address] [place], [address] WBC (Bld) [#/Vol] 15.6 10*3/uL High 4.4-11.0 [facility] Comment on above: Performed By: #### L 100.0100, L500.2500 ####[facility] [address] [facility] [place], [address] Emergency Department Summary on 10-22-2023 Emergency Department Summary [facility] Department [address] [place] [address] Emergency Department Summary 10/22/23 MR#: [id number] Acct: [id number] Name: GRACE RUSH Rep #: [id number] : 1945 78 From: Vanessa Ramsey MD PCP: DAT Dale Status:ADM COLE Location: [place] [address] HPI History of Present Illness Chief Complaint: Weakness Informant: patient Narrative Narrative: Patient presents via EMS secondary to inability to walk. She is a history of myasthenia gravis and has caretakers. She states since June she has had increasing weakness and had discussed with her primary care physician possible need for hospitalization and therapy. She has now been unable to walk since 10 October and this finally prompted her visit. [facility] Medical History (Updated 10/22/23 @ 17:[address] Vanessa Ramsey MD) Anxiety and depression Hx of gastroesophageal reflux (GERD) Fibromyalgia Diabetes mellitus Myasthenia gravis Hx pulmonary embolism Home Medications ???Medication ???Instructions ???Recorded ???Last Taken ???Type hydrocodone-acetamin ophen 5-325mg 1 ea PO PRN PRN Pain Or Fever 05/04/19 Unknown History 5mg-325mg lisinopril 20 mg tablet 20 mg PO DAILY 05/04/19 Unknown History loratadine 5 mg-pseudoephedrine ER 1 ea PO BID 05/04/19 Unknown History 120 mg tablet,extended release,12hr montelukast 10 mg tablet 10 mg PO DAILY 05/04/19 Unknown History sertraline 100 mg tablet 100 mg PO DAILY 05/04/19 Unknown History albuterol sulfate 90 mcg/actuation 2 puff inhalation Q4H PRN 10/22/23 Unknown History aerosol inhaler budesonide-formotero l HFA 80 2 puff inhalation BID 10/22/23 Unknown History mcg-4.5 mcg/actuation aerosol inhaler estradiol 0.5 mg tablet 0.5 mg PO DAILY 10/22/23 Unknown History omeprazole 20 mg capsule,delayed 20 mg PO BID 10/22/23 Unknown History release pyridostigmine bromide 60 mg tablet 60 mg PO TID PRN 10/22/23 Unknown History sumatriptan succinate 100 mg tablet 100 mg PO PRN 10/22/23 Unknown History Allergy/AdvReac Type Severity Reaction Status Date / Time Beta-Blockers Allergy Severe Other Verified 10/22/23 12:02 (Beta-Adrenergic Bloc Horse/Equine Containing AdvReac NEEDS Verified 10/22/23 12:00 Products FOLLOW-UP Sugars, Metabolically Active AdvReac Unknown Verified 10/22/23 12:00 Surgical History Hx of thymectomy Social History Smoking Status: Former smoker ROS ROS ED Constitutional Constitutional ED: Denies chills or fever(s) Eyes Eyes: Denies discharge from eye(s) ENT ENT ED: Denies discharge from eye(s), rhinorrhea or sore throat Cardiovascular Cardiovascular: Denies chest pain or palpitations Respiratory/Chest Respiratory/Chest: Denies cough or dyspnea Gastrointestinal Gastrointestinal: Reports diarrhea; Denies abdominal pain, nausea or vomiting Genitourinary Genitourinary ED: Denies dysuria Musculoskeletal Musculoskeletal: Denies back pain or extremity pain Integumentary Denies Abrasions or rash Neurologic Neurologic: Reports weakness; Denies headache(s) Psychiatric Psychiatric: Denies anxiety or depression Allergic/Immunologic Allergic/Immunologic ED: Denies lip swelling or urticaria EXAM Physical Exam Const Vital Signs: 10/22/23 11:47 10/22/23 12:02 10/22/23 13:00 Temperature 98.0 F Temperature Source Oral Pulse Rate 89 Respiratory Rate 16 Respiratory Effort Normal Non-Labored Respiratory Pattern Normal Blood Pressure 201/78 H 198/77 H Blood Pressure Mean 119 117 Pulse Ox 97 Oxygen Delivery Method Room Air 10/22/23 13:00 10/22/23 13:21 10/22/23 15:00 Temperature Temperature Source Pulse Rate 81 72 Respiratory Rate 18 17 Respiratory Effort Respiratory Pattern Blood Pressure 193/67 H 169/53 H 127/54 H Blood Pressure Mean 109 91 78 Pulse Ox 96 97 Oxygen Delivery Method Room Air Room Air Positive well nourished and well developed General Appearance ED: well developed HEENT Reports moist mucous membranes Eyes EOMs intact bilaterally Chest Wall inspection of chest normal and palpation of chest normal Resp normal respiratory effort and clear to auscultation bilaterally Cardio regular rate and regular rhythm GI non-tender Palpation: soft Neuro oriented x3 Neuro Narrative: Bilateral lower extremity weakness. Is able to wiggle toes and rotate her legs bshe-hf-arva. Normal sensation noted. Psych mental status grossly normal Skin no rashes or lesions noted MDM MDM MDM Narrative Medical decision making narrative: Patient was on manager monitoring. Noted to be significantly hypertensive in the emergency room. I (more content not included)... Normal [facility] H AND P Exam - [facility] 10-22-2023 H&P Exam - Hospitalist [facility] Records Department [address] [place] [address] H P Exam - Hospitalist 10/22/23 1714 MR#: [id number] Acct: [id number] Name: GRACE RUSH Rep #: [id number] : 1945 78 From: Mariano Glover MD PCP: DAT Dale Status:ADM [facility] Location: [place] [address] HPI - General General Date of Admission: 10/22/23 Date of Service: 10/22/23 Chief Complaint: weakness HPI Narrative GRACE RUSH, is a 78 F with a significant history of myasthenia gravis and hypertension who presents to the emergency department with persistent weakness that has had some improvement. At the emergency department patient was found to have abnormal urinalysis. However patient denies any urinary symptoms. Typically patient is incontinent of stool and was straight cathed at the emergency department for urine sample. [facility] Medical History Anxiety and depression Hx of gastroesophageal reflux (GERD) Fibromyalgia Diabetes mellitus Myasthenia gravis Hx pulmonary embolism Home Medications ???Medication ???Instructions ???Recorded ???Last Taken ???Type hydrocodone-acetamin ophen 5-325mg 1 ea PO PRN PRN Pain Or Fever 05/04/19 Unknown History 5mg-325mg lisinopril 20 mg tablet 20 mg PO DAILY 05/04/19 Unknown History loratadine 5 mg-pseudoephedrine ER 1 ea PO BID 05/04/19 Unknown History 120 mg tablet,extended release,12hr montelukast 10 mg tablet 10 mg PO DAILY 05/04/19 Unknown History sertraline 100 mg tablet 100 mg PO DAILY 05/04/19 Unknown History albuterol sulfate 90 mcg/actuation 2 puff inhalation Q4H PRN 10/22/23 Unknown History aerosol inhaler budesonide-formotero l HFA 80 2 puff inhalation BID 10/22/23 Unknown History mcg-4.5 mcg/actuation aerosol inhaler estradiol 0.5 mg tablet 0.5 mg PO DAILY 10/22/23 Unknown History omeprazole 20 mg capsule,delayed 20 mg PO BID 10/22/23 Unknown History release pyridostigmine bromide 60 mg tablet 60 mg PO TID PRN 10/22/23 Unknown History sumatriptan succinate 100 mg tablet 100 mg PO PRN 10/22/23 Unknown History Allergy/AdvReac Type Severity Reaction Status Date / Time Beta-Blockers Allergy Severe Other Verified 10/22/23 12:02 (Beta-Adrenergic Bloc Horse/Equine Containing AdvReac NEEDS Verified 10/22/23 12:00 Products FOLLOW-UP Sugars, Metabolically Active AdvReac Unknown Verified 10/22/23 12:00 Family History (Updated 10/22/23 @ 18:[address] Mariano Glover MD) Other Lupus (systemic lupus erythematosus) Scleroderma Surgical History Hx of thymectomy Surgical History no surgical history no surgical history Social History Smoking Status: Former smoker ROS ROS Narrative Pertinent positives and pertinent negatives as noted in HPI. All other systems were reviewed and are negative Vital Signs Vital Signs Vital Signs: 10/22/23 11:47 10/22/23 12:02 10/22/23 13:00 Temperature 98.0 F Temperature Source Oral Pulse Rate 89 Respiratory Rate 16 Respiratory Effort Normal Non-Labored Respiratory Pattern Normal Blood Pressure 201/78 H 198/77 H Blood Pressure Mean 119 117 Pulse Ox 97 Oxygen Delivery Method Room Air 10/22/23 13:00 10/22/23 13:21 10/22/23 15:00 Temperature Temperature Source Pulse Rate 81 72 Respiratory Rate 18 17 Respiratory Effort Respiratory Pattern Blood Pressure 193/67 H 169/53 H 127/54 H Blood Pressure Mean 109 91 78 Pulse Ox 96 97 Oxygen Delivery Method Room Air Room Air Weight Weight: 72.575 kg Body Mass Index (BMI) 28.3 Physical Exam Narrative Physical exam: General: Well-nourished, well-developed. Head: Normocephalic, atraumatic, no tenderness Eyes: Vision is grossly intact. EOMI ENT, no trauma, moist mucous membranes, no rhinorrhea Neck: Nontender, No thyromegaly. CVS: Regular rate and rhythm. S1-S2 present. No murmur, gallop or rub. Respiratory : clear to auscultation bilaterally, chest wall nontender Abdomen: Soft, nontender, nondistended, normal bowel sounds, no masses : Deferred Back: Nontender, no CVA tenderness, no midline spinal tenderness, deformities, step-offs Extremities: Flexion of right upper extremity decreased compared to left. Strength 5 out of 5 in all 4 extremities. Skin: Normal color, no trauma, abrasions Neuro: Alert, oriented, cranial nerves II through XII grossly intact. Psychiatry: Normal mood. Normal affect. Not depressed. Not anxious. Results Lab / Micro Data 10/22/23 13:00 10/22/23 13:00 Labs: Laboratory Results - last 24 hr 10/22/23 13:00: WBC 15.6 H, RBC 4.72, Hgb 13.1, Hct 41.6, MCV 88.1, MCH 27.8, (more content not included)... Normal [facility] Urinalysis, Completeon 10-21 BACTERIA 2+ /hpf Normal None Seen [facility] Comment on above: Order Comment: CLEAN CATCH Performed By: #### L [id number] #### [facility] [address] [place], [address] EPI,SQUAMOUS 0-5 SEEN Normal 5-10 [facility] Comment on above: Order Comment: CLEAN CATCH Performed By: #### L [id number] #### [facility] [address] [place], [address] RBC 10-25 SEEN Normal 0-5 [facility] Comment on above: Order Comment: CLEAN CATCH Performed By: #### L [id number] #### [facility] [address] [place], [address] WBC 5-10 SEEN Normal 0-5 [facility] Comment on above: Order Comment: CLEAN CATCH Performed By: #### L [id number] #### [facility] [address] [place], [place], [address] Mucus Ql (Urine sed) 0 SEEN Normal [facility] Comment on above: Order Comment: CLEAN CATCH Performed By: #### L [id number] #### [facility] [address] [place], [address] CNPNon 10-19-2023 CNPN Telephone ([facility]) GRACE RUSH ([id number]) 1945 F Date Time Provider Department 10/19/23 JOSE MIGUEL ALCALA During your visit today, we recorded the following information about you: Jose Miguel Alcala, TOMAS 10/19/2023 11:07 AM Signed Sw received message from patient requesting call back. Sw called patient back and phone rings with Sees[employer]dental office assistant coming on. No answer to call. Adelaide will try call another time. Pattie Rider, RN 10/19/2023 2:12 PM Signed Pt calling in stating that she is bedridden and is unable to walk. States on 10/10 she got diarrhea really bad and after that has no longer been able to get up and walk. States she can't even roll over in bed or sit up in bed without help. She states last time she saw Werner, he mentioned to her that if she went into the ER, they would admit her and evaluate her and be able to get her into a rehab unit. Pt states when she got bad on the , her family wanted to take her to the ER then but pt did not want to go. She states she has agreed to go so her family is taking her in tomorrow to the ER. Pt thought Werner Whitfield would still be able to take care of her while she is in the hospital. Explained that the hospital providers would take over her care. Pt verbalized understanding. Attempted to get a hold of social science manager as it appears she was trying to call pt back. Pt will keep her phone on and with her. Jose Miguel Alcala MSW 10/19/2023 3:23 PM Signed Sw unsure as to the likelihood of [facility] admitting patient regarding below. Sw will defer message to DAT Caldera for his input on below. Mynor Hampton MD 10/19/2023 4:33 PM Signed Hard to tell. If unable to be ambulate or care for self, to ER gregg. Rebecca Blanco MA 10/19/2023 4:58 PM Signed Spoke with patient and given provider message. She states that she has a caregiver to help her today. If anything, she will go tomorrow, refusing to go today. Rebecca Blanco MA October 19, 2023 4:58 PM Allergies As of Date: 10/19/2023 Noted Allergy Reaction HORSE DANDER 12/05/2018 16 - Unknown Comments: horse serum Date Reviewed: 07/13/2023 Reviewed by: Keesha Isaacs LPN - Fully Assessed Reason for Visit: Patient Update [1234] Prescriptions as of 10/19/2023 - montelukast (SINGULAIR) 10 mg tablet Take 1 tablet by mouth daily at bedtime. - omeprazole (PRILOSEC) 20 mg capsule Take 1 capsule by mouth two times a day. - SUMAtriptan (IMITREX) 100 mg tablet Take 1 tablet (100 mg) by mouth as needed. - albuterol HFA (VENTOLIN HFA) 90 mcg/actuation inhaler Inhale 2 Puffs as instructed every 4 hours as needed. - pyridostigmine (MESTINON) 60 mg tablet Take 1 tablet by mouth three times a day as needed. - ondansetron (ZOFRAN) 4 mg tablet Take 1 tablet by mouth every 8 hours as needed. - lisinopril (ZESTRIL) 10 mg tablet Take 1 tablet by mouth once daily. - Estradiol (ESTRACE) 0.5 mg tablet Take 1 tablet by mouth once daily. - CLARITIN-D 12 HOUR 5-120 mg per tablet Take 1 tablet by mouth two times a day. No generic requesting brand name - sertraline (ZOLOFT) 100 mg tablet Take 1 tablet by mouth once daily. - budesonide-formotero l (SYMBICORT) 80-4.5 mcg/actuation inhaler Inhale 2 Puffs as instructed two times a day. - lisinopril (PRINIVIL) 20 mg tablet Take 1 tablet by mouth once daily. - neomycin/polymyxin b/dexametha(MAXITROL 3.5 MG/ML-10,000 UNIT/ML-0.1% EYE DROPS,SUSPENSION) 1-2 drops 3-4 times a day as needed for external otitis - Cromolyn Sodium (CROLOM) 4 % ophthalmic solution Use 1-2 Drops in both eyes four times daily. - fluticasone (FLONASE) 50 mcg/actuation nasal spray Use 2 Sprays in each nostril once daily. - diphenoxylate-atropi ne (LOMOTIL) 2.5-0.025 mg per tablet Take 1 tablet by mouth four times daily as needed for up to 60 days. - budesonide-formotero l (SYMBICORT) 80-4.5 mcg/actuation inhaler Inhale 2 Puffs as instructed twice daily. - naproxen sodium (ANAPROX) 220 mg tablet Take 220 mg by mouth twice daily with meals. - acetaminophen 650 mg CR tablet Take 650 mg by mouth every 8 hours as needed. - OTC PRODUCT Instaflex Advanced Joint Support (collagen, turmeric, resveratrol, black peper, bosellia, hyaluronic acid) - camphor-methyl salicyl-menthol (SALONPAS) 3.1-10-6 % ptmd Apply to affected area. As needed - metFORMIN (GLUCOPHAGE) 500 mg tablet Take 1 tablet by mouth twice daily with meals. . - Cholecalciferol, Vitamin D3, 50 mcg (2,000 unit) cap Take 6,000 Units by mouth once daily. 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 Normal [facility] GRACE [facility] ([id number]) 1945 F Date Time Provider Department 10/04/23 JAQUELIN LEDBETTER During your visit today, we recorded the following information about you: Jaquelin Ledbetter LPN 10/04/2023 4:47 PM Signed Pt calls to request order for wheelchair be faxed to [facility] [facility] @ [phone]. Order and pt information faxed as requested. Pt also reports [facility] phone #[phone]. BRENNEN Hill [place], MA 10/06/2023 9:28 AM Addendum Received forms from [facility] [employer] [facility]. Requires [id number] for wheelchair. Also needs Rx for wheelchair, and PT/OT. Patient is scheduled on 10/11/23 with Werner. This can be discussed at time of appointment. Forms on [employer] desk. Placed call to patient with no answer. Unable to leave message due to VM full. Rosa Maria Montejo MA Allergies As of Date: 10/04/2023 Noted Allergy Reaction HORSE DANDER 12/05/2018 16 - Unknown Comments: horse serum Date Reviewed: 07/13/2023 Reviewed by: Keesha Isaacs LPN - Fully Assessed Reason for Visit: Orders [681] Prescriptions as of 10/06/2023 - montelukast (SINGULAIR) 10 mg tablet Take 1 tablet by mouth daily at bedtime. - omeprazole (PRILOSEC) 20 mg capsule Take 1 capsule by mouth two times a day. - SUMAtriptan (IMITREX) 100 mg tablet Take 1 tablet (100 mg) by mouth as needed. - albuterol HFA (VENTOLIN HFA) 90 mcg/actuation inhaler Inhale 2 Puffs as instructed every 4 hours as needed. - pyridostigmine (MESTINON) 60 mg tablet Take 1 tablet by mouth three times a day as needed. - HYDROcodone-acetamin ophen (NORCO) 5-325 mg per tablet Take 1 tablet by mouth every 6 hours as needed for pain for up to 90 days. - ondansetron (ZOFRAN) 4 mg tablet Take 1 tablet by mouth every 8 hours as needed. - lisinopril (ZESTRIL) 10 mg tablet Take 1 tablet by mouth once daily. - Estradiol (ESTRACE) 0.5 mg tablet Take 1 tablet by mouth once daily. - CLARITIN-D 12 HOUR 5-120 mg per tablet Take 1 tablet by mouth two times a day. No generic requesting brand name - sertraline (ZOLOFT) 100 mg tablet Take 1 tablet by mouth once daily. - budesonide-formotero l (SYMBICORT) 80-4.5 mcg/actuation inhaler Inhale 2 Puffs as instructed two times a day. - lisinopril (PRINIVIL) 20 mg tablet Take 1 tablet by mouth once daily. - neomycin/polymyxin b/dexametha(MAXITROL 3.5 MG/ML-10,000 UNIT/ML-0.1% EYE DROPS,SUSPENSION) 1-2 drops 3-4 times a day as needed for external otitis - Cromolyn Sodium (CROLOM) 4 % ophthalmic solution Use 1-2 Drops in both eyes four times daily. - fluticasone (FLONASE) 50 mcg/actuation nasal spray Use 2 Sprays in each nostril once daily. - diphenoxylate-atropi ne (LOMOTIL) 2.5-0.025 mg per tablet Take 1 tablet by mouth four times daily as needed for up to 60 days. - budesonide-formotero l (SYMBICORT) 80-4.5 mcg/actuation inhaler Inhale 2 Puffs as instructed twice daily. - naproxen sodium (ANAPROX) 220 mg tablet Take 220 mg by mouth twice daily with meals. - acetaminophen 650 mg CR tablet Take 650 mg by mouth every 8 hours as needed. - OTC PRODUCT Instaflex Advanced Joint Support (collagen, turmeric, resveratrol, black peper, bosellia, hyaluronic acid) - camphor-methyl salicyl-menthol (SALONPAS) 3.1-10-6 % ptmd Apply to affected area. As needed - metFORMIN (GLUCOPHAGE) 500 mg tablet Take 1 tablet by mouth twice daily with meals. . - Cholecalciferol, Vitamin D3, 50 mcg (2,000 unit) cap Take 6,000 Units by mouth once daily. 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* Myasthenia gravis (HCC) [G70.00] Peripheral neuropathy [G62.9] Type 2 diabetes mellitus with diabetic neuropat* Anxiety [F41.9] Chronic asthmatic bronchitis (HCC) [J44.89] 12/05/2018 SANDRA (iron deficiency anemia) [D50.9] 07/15/2020 Other allergic rhinitis [J30.89] 10/07/2021 Allergic conjunctivitis of both eyes [H10.13] 10/07/2021 Anxiety with depression [F41.8] 03/01/2022 Chronic otitis externa of both ears [H60.63] 06/02/2023 Vitamin D deficiency [E55.9] 06/02/2023 Encounter Status:Closed by JAQUELIN LEDBETTER on 10/04/23 [facility] 07-28-2023 [facility] Telephone ([facility]) REENAGRACE ([id number]) 1945 F Date Time Provider Department 07/28/23 JOSE MIGUEL ALCALA During your visit today, we recorded the following information about you: Zayda Charles LPN 07/28/2023 3:51 PM Signed Patient calling needs some help, her caregiver is going on a cruise later this month. Patient needs to find some help at home, she is not sure how to go about doing that. She had wrong phone number listed on her chart, now have correct one. Jose Miguel Alcala MSW 07/30/2023 4:40 PM Addendum Patient and Sw discussed home rental boats caretaker agency. Patient notes that her insurance told her that they would cover a home rental boats caretaker. Patient reports that she would need home rental boats caretaker from 08/17-08/31. Laine notes that her caregivers are going out of town on a cruise and she needs someone to assist her when they are gone. Need to check and see if a home rental boats caretaker agency is accepted by patient insurance. Sw notes that she will have to call patient insurance to see about a listing of home rental boats caretaker agencies that are in network with patient insurance. [phone] [facility] [place] [id number] [phone] number Adelaide noted to patient that she would see about home rental boats caretaker agency names in network with insurance. Sw noted that she would call patient back on Wednesday next week to update her on what Adelaide has found out. Jose Miguel Alcala MSW 07/30/2023 4:23 PM Signed Adelaide tried call to [facility] and phone call would not go through. Adelaide will try call again on 08/02/23. Jose Miguel Alcala MSW 08/02/2023 12:51 PM Signed Adelaide called [facility] insurance. Patient insurance notes that home rental boats caretaker is only available through patient insurance if patient has also a assisted/PT/OT need. The only other home care program available is for someone with a serious health condition that also needs assisted assistance. There are no other home care assistance options available under patient insurance. Adelaide will compile self pay home care agency options and respite care SNF provider options in the area. Adelaide will follow up with patient tomorrow 08/03/23 in regards to this information. Jose Miguel Alcala MSW 08/03/2023 10:54 AM Signed Adelaide tried call to patient to discuss below information. Adelaide left message that Adelaide will try call again to patient this afternoon 08/02 @2pm. Jose Miguel Alcala MSW 08/03/2023 12:57 PM Signed Adelaide spoke with patient and provided [facility], [facility], [facility], and [facility] contact information. Adelaide told patient that patient insurance stated that home care aids by their self, are not available through patient insurance. Only available with conjunction of assisted/PT/OT. Patient reports that she will reach out to above agencies and will start with [facility] to see about resources they may have for assistance.Patient notes that she will compare cost and hour availability. Patient thanked Adelaide for call back and resources. Allergies As of Date: 07/28/2023 Noted Allergy Reaction HORSE DANDER 12/05/2018 16 - Unknown Comments: horse serum Date Reviewed: 07/13/2023 Reviewed by: Keesha Isaacs LPN - Fully Assessed Reason for Visit: Patient Question [7177] Prescriptions as of 08/17/2023 - SUMAtriptan (IMITREX) 100 mg tablet Take 1 tablet (100 mg) by mouth as needed. - albuterol HFA (VENTOLIN HFA) 90 mcg/actuation inhaler Inhale 2 Puffs as instructed every 4 hours as needed. - pyridostigmine (MESTINON) 60 mg tablet Take 1 tablet by mouth three times a day as needed. - HYDROcodone-acetamin ophen (NORCO) 5-325 mg per tablet Take 1 tablet by mouth every 6 hours as needed for pain for up to 90 days. - ondansetron (ZOFRAN) 4 mg tablet Take 1 tablet by mouth every 8 hours as needed. - lisinopril (ZESTRIL) 10 mg tablet Take 1 tablet by mouth once daily. - Estradiol (ESTRACE) 0.5 mg tablet Take 1 tablet by mouth once daily. - CLARITIN-D 12 HOUR 5-120 mg per tablet Take 1 tablet by mouth two times a day. No generic requesting brand name - sertraline (ZOLOFT) 100 mg tablet Take 1 tablet by mouth once daily. - budesonide-formotero l (SYMBICORT) 80-4.5 mcg/actuation inhaler Inhale 2 Puffs as instructed two times a day. - lisinopril (PRINIVIL) 20 mg tablet Take 1 tablet by mouth once daily. - neomycin/polymyxin b/dexametha(MAXITROL 3.5 MG/ML-10,000 UNIT/ML-0.1% EYE DROPS,SUSPENSION) 1-2 drops 3-4 times a day as needed for external otitis - omeprazole (PRILOSEC) 20 mg capsule Take 1 capsule by mouth twice daily. - Cromolyn Sodium (CROLOM) 4 % ophthalmic solution Use 1-2 Drops in both eyes four times daily. - montelukast (SINGULAIR) 10 mg tablet Take 1 tablet by mouth daily at bedtime. - fluticasone (FLONASE) 50 mcg/actuation nasal spray Use 2 Sprays in each nostril once daily. - diphenoxylate-atropi ne (LOM (more content not included)... Normal [facility] Telephone ([facility]) GRACE RUSH ([id number]) 1945 F Date Time Provider Department 07/28/23 [facility] During your visit today, we recorded the following information about you: Zayda Charles LPN 07/28/2023 3:49 PM Signed Patient calling she lost the order for the standard wheel chair. Patient is going to call her insurance to see which DME is covered and call back with name and fax number. Please advise Beena Whitfield PA-C 07/29/2023 1:54 PM Addendum Telephone on 07/28/23 STANDARD WHEELCHAIR Thanks, SATHISH Rothman Jacqueline, LPN 08/02/2023 4:12 PM Signed Spoke with patient to update. Has yet to find out. States will call tomorrow. Keesha Isaacs LPN 08/10/2023 3:35 PM Signed Closing encounter. Once patient is able to find out can print out order for wheelchair. Allergies As of Date: 07/28/2023 Noted Allergy Reaction HORSE DANDER 12/05/2018 16 - Unknown Comments: horse serum Date Reviewed: 07/13/2023 Reviewed by: Keesha Isaacs LPN - Fully Assessed Reason for Visit: Orders [681] Primary Visit Diagnosis:Myasthenia gravis (HCC) [G70.00] Order(s):STANDARD WHEELCHAIR [[id number]] Order #: [id number] Prescriptions as of 08/10/2023 - SUMAtriptan (IMITREX) 100 mg tablet Take 1 tablet (100 mg) by mouth as needed. - albuterol HFA (VENTOLIN HFA) 90 mcg/actuation inhaler Inhale 2 Puffs as instructed every 4 hours as needed. - pyridostigmine (MESTINON) 60 mg tablet Take 1 tablet by mouth three times a day as needed. - HYDROcodone-acetamin ophen (NORCO) 5-325 mg per tablet Take 1 tablet by mouth every 6 hours as needed for pain for up to 90 days. - ondansetron (ZOFRAN) 4 mg tablet Take 1 tablet by mouth every 8 hours as needed. - lisinopril (ZESTRIL) 10 mg tablet Take 1 tablet by mouth once daily. - Estradiol (ESTRACE) 0.5 mg tablet Take 1 tablet by mouth once daily. - CLARITIN-D 12 HOUR 5-120 mg per tablet Take 1 tablet by mouth two times a day. No generic requesting brand name - sertraline (ZOLOFT) 100 mg tablet Take 1 tablet by mouth once daily. - budesonide-formotero l (SYMBICORT) 80-4.5 mcg/actuation inhaler Inhale 2 Puffs as instructed two times a day. - lisinopril (PRINIVIL) 20 mg tablet Take 1 tablet by mouth once daily. - neomycin/polymyxin b/dexametha(MAXITROL 3.5 MG/ML-10,000 UNIT/ML-0.1% EYE DROPS,SUSPENSION) 1-2 drops 3-4 times a day as needed for external otitis - omeprazole (PRILOSEC) 20 mg capsule Take 1 capsule by mouth twice daily. - Cromolyn Sodium (CROLOM) 4 % ophthalmic solution Use 1-2 Drops in both eyes four times daily. - montelukast (SINGULAIR) 10 mg tablet Take 1 tablet by mouth daily at bedtime. - fluticasone (FLONASE) 50 mcg/actuation nasal spray Use 2 Sprays in each nostril once daily. - diphenoxylate-atropi ne (LOMOTIL) 2.5-0.025 mg per tablet Take 1 tablet by mouth four times daily as needed for up to 60 days. - budesonide-formotero l (SYMBICORT) 80-4.5 mcg/actuation inhaler Inhale 2 Puffs as instructed twice daily. - naproxen sodium (ANAPROX) 220 mg tablet Take 220 mg by mouth twice daily with meals. - acetaminophen 650 mg CR tablet Take 650 mg by mouth every 8 hours as needed. - OTC PRODUCT Instaflex Advanced Joint Support (collagen, turmeric, resveratrol, black peper, bosellia, hyaluronic acid) - camphor-methyl salicyl-menthol (SALONPAS) 3.1-10-6 % ptmd Apply to affected area. As needed - metFORMIN (GLUCOPHAGE) 500 mg tablet Take 1 tablet by mouth twice daily with meals. . - Cholecalciferol, Vitamin D3, 50 mcg (2,000 unit) cap Take 6,000 Units by mouth once daily. 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* Myasthenia gravis (HCC) [G70.00] Peripheral neuropathy [G62.9] Type 2 diabetes mellitus with diabetic neuropat* Anxiety [F41.9] Chronic asthmatic bronchitis (HCC) [J44.89] 12/05/2018 SANDRA (iron deficiency anemia) [D50.9] 07/15/2020 Other allergic rhinitis [J30.89] 10/07/2021 Allergic conjunctivitis of both eyes [H10.13] 10/07/2021 Anxiety with depression [F41.8] 03/01/2022 Chronic otitis externa of both ears [H60.63] 06/02/2023 Vitamin D deficiency [E55.9] 06/02/2023 Encounter Status:Closed by KEESHA ISAACS on 08/10/23 Normal [facility] 07-15-2023 [facility] Telephone ([facility]) GRACE RUSH ([id number]) 1945 F Date Time Provider Department 07/15/23 JOSE MIGUEL ALCALA During your visit today, we recorded the following information about you: Jose Miguel Alcala MSW 07/15/2023 9:34 AM Signed Adelaide left message for patient tor return Sw call to discuss community resources/medicare questions. Jose Miguel Alcala MSW 07/16/2023 12:53 PM Signed Adelaide tried call to patient and received messageall circuits are busy now, please try call again later. Jose Miguel Alcala MSW 07/19/2023 9:57 AM Addendum Adelaide tried call again to patient and received message eneidacome to [employer] your call cannot be completed as dialed. Tried call again and received same message. Jose Miguel Alcala MSW 07/21/2023 12:03 PM Signed Adelaide called patient and left message to have call returned to discuss community social service/medicare questions. Allergies As of Date: 07/15/2023 Noted Allergy Reaction HORSE DANDER 12/05/2018 16 - Unknown Comments: horse serum Date Reviewed: 07/13/2023 Reviewed by: Keesha Isaacs LPN - Fully Assessed Prescriptions as of 07/21/2023 - SUMAtriptan (IMITREX) 100 mg tablet Take 1 tablet (100 mg) by mouth as needed. - albuterol HFA (VENTOLIN HFA) 90 mcg/actuation inhaler Inhale 2 Puffs as instructed every 4 hours as needed. - pyridostigmine (MESTINON) 60 mg tablet Take 1 tablet by mouth three times a day as needed. - HYDROcodone-acetamin ophen (NORCO) 5-325 mg per tablet Take 1 tablet by mouth every 6 hours as needed for pain for up to 90 days. - ondansetron (ZOFRAN) 4 mg tablet Take 1 tablet by mouth every 8 hours as needed. - lisinopril (ZESTRIL) 10 mg tablet Take 1 tablet by mouth once daily. - Estradiol (ESTRACE) 0.5 mg tablet Take 1 tablet by mouth once daily. - CLARITIN-D 12 HOUR 5-120 mg per tablet Take 1 tablet by mouth two times a day. No generic requesting brand name - sertraline (ZOLOFT) 100 mg tablet Take 1 tablet by mouth once daily. - budesonide-formotero l (SYMBICORT) 80-4.5 mcg/actuation inhaler Inhale 2 Puffs as instructed two times a day. - lisinopril (PRINIVIL) 20 mg tablet Take 1 tablet by mouth once daily. - neomycin/polymyxin b/dexametha(MAXITROL 3.5 MG/ML-10,000 UNIT/ML-0.1% EYE DROPS,SUSPENSION) 1-2 drops 3-4 times a day as needed for external otitis - omeprazole (PRILOSEC) 20 mg capsule Take 1 capsule by mouth twice daily. - Cromolyn Sodium (CROLOM) 4 % ophthalmic solution Use 1-2 Drops in both eyes four times daily. - montelukast (SINGULAIR) 10 mg tablet Take 1 tablet by mouth daily at bedtime. - fluticasone (FLONASE) 50 mcg/actuation nasal spray Use 2 Sprays in each nostril once daily. - diphenoxylate-atropi ne (LOMOTIL) 2.5-0.025 mg per tablet Take 1 tablet by mouth four times daily as needed for up to 60 days. - budesonide-formotero l (SYMBICORT) 80-4.5 mcg/actuation inhaler Inhale 2 Puffs as instructed twice daily. - naproxen sodium (ANAPROX) 220 mg tablet Take 220 mg by mouth twice daily with meals. - acetaminophen 650 mg CR tablet Take 650 mg by mouth every 8 hours as needed. - OTC PRODUCT Instaflex Advanced Joint Support (collagen, turmeric, resveratrol, black peper, bosellia, hyaluronic acid) - camphor-methyl salicyl-menthol (SALONPAS) 3.1-10-6 % ptmd Apply to affected area. As needed - metFORMIN (GLUCOPHAGE) 500 mg tablet Take 1 tablet by mouth twice daily with meals. . - Cholecalciferol, Vitamin D3, 50 mcg (2,000 unit) cap Take 6,000 Units by mouth once daily. 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* Myasthenia gravis ([facility]) [G70.00] Peripheral neuropathy [G62.9] Type 2 diabetes mellitus with diabetic neuropat* Anxiety [F41.9] Chronic asthmatic bronchitis (HCC) [J44.89] 12/05/2018 SANDRA (iron deficiency anemia) [D50.9] 07/15/2020 Other allergic rhinitis [J30.89] 10/07/2021 Allergic conjunctivitis of both eyes [H10.13] 10/07/2021 Anxiety with depression [F41.8] 03/01/2022 Chronic otitis externa of both ears [H60.63] 06/02/2023 Vitamin D deficiency [E55.9] 06/02/2023 Encounter Status:Closed by JOSE MIGUEL ALCALA on 07/21/23 [facility] 07-13-2023 CNOV Office Visit (FAMPWS) GRACE RUSH ([id number]) 1945 F Date Time Provider Department 07/13/23 11:00 AM Beena WHITFIELD During your visit today, we recorded the following information about you: Pulse Respiration Blood pressure 93/minute 16/minute 134/80 Beena Whitfield PA-C 07/13/2023 8:01 PM Signed 78 year old female with c/o feeling weak, wasn't able to come in last visit Asking for home care: states called insurance and was told they would cover. Discussed this is not usually true with Medicare. Asked about respite care through Hospice- advised only available with end of life care. Essential hypertension (primary encounter diagnosis) Current meds: Lisinopril 20 mg daily: taking 1/2 daily Patient is compliant with meds Yes Monitors bp at home: No. If yes, readings: Denies side effects: Yes. Chest pain: No. Dyspnea: No. Edema: No. Palpitations: No. Syncope: No. Headache: No- doing better, headaches resolved. Dizziness: Has subsided from last visit Last 3 Encounter BP Readings: Date: BP: 07/13/2023 134/80 03/02/2023 138/80 12/01/2022 116/70 Last 2 Encounter Wt Readings: Date: Wt: 07/13/2023 0 kg () 03/02/2023 71.7 kg (158 lb) Mixed hyperlipidemia Statin intolerance Current medication none Taking medication consistently n/a Continues to refuse medication, talking about [employer] and [employer] politics Stomach complaints/ diarrhea Yes, chronic but currently not a problem. Occasionally 1-2 immodium tabs. Last 2 Lipids: No new data Component Latest Ref Rng AND Units 12/21/2020 06/05/2022 Cholesterol, Total <200 mg/dL 285 (H) 290 (H) Triglyceride <150 mg/dL 185 (H) 174 (H) HDL Cholesterol >39 mg/dL 52 48 LDL Cholesterol <100 mg/dL 196 (H) 207 (H) Non HDL Cholesterol <130 mg/dL 233 (H) 242 (H) Fasting Time hrs 10 13 VLDL Cholesterol <30 mg/dL 37 (H) 35 (H) TC:HDL Ratio <5.10 5.48 (H) 6.04 (H) LDL:HDL Ratio <2.54 3.77 (H) 4.31 (H) The 10-year ASCVD risk score (Cresencio BHAGAT, et al., 2019) is: 42.4% Values used to calculate the score: Age: 77 years Sex: Female Is Non- : No Diabetic: Yes Tobacco smoker: No Systolic Blood Pressure: 138 mmHg Is BP treated: Yes HDL Cholesterol: 48 mg/dL Total Cholesterol: 290 mg/dL Type 2 diabetes mellitus with diabetic neuropathy, without long-term current use of insulin (hcc) Current medications: Metformin 500mg twice a day with meals Taking medication as directed consistently? Yes Medical Issues / Complications: hypertension and hyperlipidemia Checking blood sugars at home? No. Watching diet? Eating a variety of foods, not really watching. Physical Activity: Sedentary Hypoglycemic spells? No Any visual disturbance? No Chest pain? No New numbness, tingling or loss of sensation? No Any recent foot problems, sores or rashes? No Any recent or sudden weight loss? No Change in urination? No. Wears diapers constantly. Urinates only during sleep. Any recent illness? No Last eye exam: due Last foot exam: due. Hemoglobin A1C (%) Date Value 12/01/2022 5.9 06/05/2022 5.8 12/21/2020 5.8 12/08/2019 5.5 ) ) Polyneuropathy associated with underlying disease (hcc) Current medications: Hydrocodone 5-3 25 #28 1 tablet every 6 hours as needed for pain sparingly Camphor-methyl salicylate-menthol patch 3.1-10-6% daily as needed to site Tylenol arthritis 650 mg CR 2 capsules every 8 hours as needed Pain level is better, not as bad. Using Joice very sparingly: cuts in half, at most twice a day. Myasthenia gravis (hcc) Pyridostigmine 60mg three times a day States taking 3/4 pill twice a day sometimes three times Notes they crumble so actually getting less, get powdery. Noted was getting more fatigued Fatigue currently better Wants to see neurologist Vitamin D3 2000u: 4000u daily confirmed. Did not complete lab Component Latest Ref Rng AND Units 12/18/2019 10/07/2021 Vitamin D 25 Hydroxy 31.0 - 80.0 ng/mL 58.1 30.4 (L) Allergic Rhinitis Chronic asthmatic bronchitis Current medications: Cromolyn sodium 4% 1 to 2 drops both eyes 4 times daily Fluticasone 50 MCG per actuation 2 sprays each nostril daily Budesonide-formotero l 2 puffs twice a day Albuterol HFA 90 MCG per actuation 2 puffs every 4 hours as needed Clariten D 5-120mg once a day usually works. 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 Interval history: no significant changes. . Worsening shortness of breath: Yes, with exertion, up and around more until weather changed. Cough: occasional. Wheezing: No. Smoking: No. Compliant with medications: Yes. Using rescue inhaler: has been using albuterol every 6h routinely along with longacting as directed. Feels this is really helping. Otitis externa: Current medications: Neomy/polymyx/dexame th 3.5 mg/mL-10,000 unit/mL - 0.1% 1 t (more content not included)... Normal [facility] 06-21-2023 [facility] Telephone ([facility]) GRACE RUSH ([id number]) 1945 F Date Time Provider Department 06/21/23 Beena WHITFIELD [facility] During your visit today, we recorded the following information about you: Faheem Martinez LPN 06/21/2023 9:40 AM Signed Pt scheduled for virtual on 06/23 for is to weak and all her joints hurt. Please triage. Faheem Martinez LPN Allergies As of Date: 06/21/2023 Noted Allergy Reaction HORSE DANDER 12/05/2018 16 - Unknown Comments: horse serum Date Reviewed: 03/10/2023 Reviewed by: Lizzie Cardoza MD - Fully Assessed Reason for Visit: Nurse Triage Call [185] Prescriptions as of 06/21/2023 - ondansetron (ZOFRAN) 4 mg tablet Take 1 tablet by mouth every 8 hours as needed. - CLARITIN-D 12 HOUR 5-120 mg per tablet Take 1 tablet by mouth two times a day. No generic requesting brand name - sertraline (ZOLOFT) 100 mg tablet Take 1 tablet by mouth once daily. - budesonide-formotero l (SYMBICORT) 80-4.5 mcg/actuation inhaler Inhale 2 Puffs as instructed two times a day. - lisinopril (PRINIVIL) 20 mg tablet Take 1 tablet by mouth once daily. - SUMAtriptan (IMITREX) 100 mg tablet Take 1 tablet (100 mg) by mouth as needed. - neomycin/polymyxin b/dexametha(MAXITROL 3.5 MG/ML-10,000 UNIT/ML-0.1% EYE DROPS,SUSPENSION) 1-2 drops 3-4 times a day as needed for external otitis - omeprazole (PRILOSEC) 20 mg capsule Take 1 capsule by mouth twice daily. - Cromolyn Sodium (CROLOM) 4 % ophthalmic solution Use 1-2 Drops in both eyes four times daily. - albuterol HFA (VENTOLIN HFA) 90 mcg/actuation inhaler Inhale 2 Puffs as instructed every 4 hours as needed. - Estradiol (ESTRACE) 0.5 mg tablet Take 1 tablet by mouth once daily. - montelukast (SINGULAIR) 10 mg tablet Take 1 tablet by mouth daily at bedtime. - fluticasone (FLONASE) 50 mcg/actuation nasal spray Use 2 Sprays in each nostril once daily. - diphenoxylate-atropi ne (LOMOTIL) 2.5-0.025 mg per tablet Take 1 tablet by mouth four times daily as needed for up to 60 days. - pyridostigmine (MESTINON) 60 mg tablet Take 1 tablet by mouth three times daily as needed. - budesonide-formotero l (SYMBICORT) 80-4.5 mcg/actuation inhaler Inhale 2 Puffs as instructed twice daily. - naproxen sodium (ANAPROX) 220 mg tablet Take 220 mg by mouth twice daily with meals. - acetaminophen 650 mg CR tablet Take 650 mg by mouth every 8 hours as needed. - OTC PRODUCT Instaflex Advanced Joint Support (collagen, turmeric, resveratrol, black peper, bosellia, hyaluronic acid) - camphor-methyl salicyl-menthol (SALONPAS) 3.1-10-6 % ptmd Apply to affected area. As needed - metFORMIN (GLUCOPHAGE) 500 mg tablet Take 1 tablet by mouth twice daily with meals. . - Cholecalciferol, Vitamin D3, 50 mcg (2,000 unit) cap Take 6,000 Units by mouth once daily. 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* Myasthenia gravis ([facility]) [G70.00] Peripheral neuropathy [G62.9] Type 2 diabetes mellitus with diabetic neuropat* Anxiety [F41.9] Chronic asthmatic bronchitis (HCC) [J44.89] 12/05/2018 SANDRA (iron deficiency anemia) [D50.9] 07/15/2020 Other allergic rhinitis [J30.89] 10/07/2021 Allergic conjunctivitis of both eyes [H10.13] 10/07/2021 Anxiety with depression [F41.8] 03/01/2022 Chronic otitis externa of both ears [H60.63] 06/02/2023 Vitamin D deficiency [E55.9] 06/02/2023 Encounter Status:Closed by MIESHA BERNAL on 06/21/23 [facility] Eva 06-08-2023 [facility] Telephone (FAMPWS) GRACE RUSH ([id number]) 1945 F Date Time Provider Department 06/08/23 Beena WHITFIELD During your visit today, we recorded the following information about you: Jaquelin Ledbetter LPN 06/08/2023 9:24 AM Signed Pt calls to report she will not be able to make it to appt this morning. Pt reports she is too weak and all her joints hurt. Pt reports she has to have help to get up off the toilet, get dressed, walk without assistance. Pt reports she cannot walk much even with assistance. Pt is wanting an order for HH because she said Kt and Akilah cannot be here all the time. It was hard to get answers from pt because she talked fast and would change subjects. BRENNEN Hill William J, MD 06/22/2023 8:23 AM Signed On Gayathri's schedule in am. Allergies As of Date: 06/08/2023 Noted Allergy Reaction HORSE DANDER 12/05/2018 16 - Unknown Comments: horse serum Date Reviewed: 03/10/2023 Reviewed by: Lizzie Cardoza MD - Fully Assessed Reason for Visit: Patient Update [1234] Prescriptions as of 06/22/2023 - ondansetron (ZOFRAN) 4 mg tablet Take 1 tablet by mouth every 8 hours as needed. - CLARITIN-D 12 HOUR 5-120 mg per tablet Take 1 tablet by mouth two times a day. No generic requesting brand name - sertraline (ZOLOFT) 100 mg tablet Take 1 tablet by mouth once daily. - budesonide-formotero l (SYMBICORT) 80-4.5 mcg/actuation inhaler Inhale 2 Puffs as instructed two times a day. - lisinopril (PRINIVIL) 20 mg tablet Take 1 tablet by mouth once daily. - SUMAtriptan (IMITREX) 100 mg tablet Take 1 tablet (100 mg) by mouth as needed. - neomycin/polymyxin b/dexametha(MAXITROL 3.5 MG/ML-10,000 UNIT/ML-0.1% EYE DROPS,SUSPENSION) 1-2 drops 3-4 times a day as needed for external otitis - omeprazole (PRILOSEC) 20 mg capsule Take 1 capsule by mouth twice daily. - Cromolyn Sodium (CROLOM) 4 % ophthalmic solution Use 1-2 Drops in both eyes four times daily. - albuterol HFA (VENTOLIN HFA) 90 mcg/actuation inhaler Inhale 2 Puffs as instructed every 4 hours as needed. - Estradiol (ESTRACE) 0.5 mg tablet Take 1 tablet by mouth once daily. - montelukast (SINGULAIR) 10 mg tablet Take 1 tablet by mouth daily at bedtime. - fluticasone (FLONASE) 50 mcg/actuation nasal spray Use 2 Sprays in each nostril once daily. - diphenoxylate-atropi ne (LOMOTIL) 2.5-0.025 mg per tablet Take 1 tablet by mouth four times daily as needed for up to 60 days. - pyridostigmine (MESTINON) 60 mg tablet Take 1 tablet by mouth three times daily as needed. - budesonide-formotero l (SYMBICORT) 80-4.5 mcg/actuation inhaler Inhale 2 Puffs as instructed twice daily. - naproxen sodium (ANAPROX) 220 mg tablet Take 220 mg by mouth twice daily with meals. - acetaminophen 650 mg CR tablet Take 650 mg by mouth every 8 hours as needed. - OTC PRODUCT Instaflex Advanced Joint Support (collagen, turmeric, resveratrol, black peper, bosellia, hyaluronic acid) - camphor-methyl salicyl-menthol (SALONPAS) 3.1-10-6 % ptmd Apply to affected area. As needed - metFORMIN (GLUCOPHAGE) 500 mg tablet Take 1 tablet by mouth twice daily with meals. . - Cholecalciferol, Vitamin D3, 50 mcg (2,000 unit) cap Take 6,000 Units by mouth once daily. 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* Myasthenia gravis (HCC) [G70.00] Peripheral neuropathy [G62.9] Type 2 diabetes mellitus with diabetic neuropat* Anxiety [F41.9] Chronic asthmatic bronchitis (HCC) [J44.89] 12/05/2018 SANDRA (iron deficiency anemia) [D50.9] 07/15/2020 Other allergic rhinitis [J30.89] 10/07/2021 Allergic conjunctivitis of both eyes [H10.13] 10/07/2021 Anxiety with depression [F41.8] 03/01/2022 Chronic otitis externa of both ears [H60.63] 06/02/2023 Vitamin D deficiency [E55.9] 06/02/2023 Encounter Status:[facility] MY[facility] HAMPTON [facility] Telephone (FAMPWS) GRACE RUSH ([id number]) 1945 Date Time Provider Department 04/20/23 [facility] During your visit today, we recorded the following information about you: Francisca Denise 04/20/2023 4:00 PM Signed Grace is calling Beena Whitfield PA-C today with concern regarding Medication Problem Patient is calling in stating that she can not afford the medication for the Claritin D 12 states that the morley has increased; she states that Werner Whitfield had offered to call in something different for this? Patient has been identified by name and birthdate. Duration of symptoms: N/A Person calling: self Call patient at: at home [phone] (home) [phone] (cell) Was an appointment scheduled: No Closing statement: Results or non-symptom based questions: Thank you for calling [facility], your call will be returned within the next business day. Beena Payton PA-C 04/21/2023 5:54 AM Signed She can get #30 tabs on-line [facility] for $0.58 She could get the generic much cheaper. Is she willing to try? Thanks, SATHISH Rothman Jamie 04/21/2023 10:01 AM Signed Phoned pt, reached recording that states all circuits are busy. Adriana Elder Ma 04/23/2023 9:59 AM Signed Tried to reach pt, Still receiving same recording. Faheem Diaz Ma 04/23/2023 11:20 AM Signed Phoned pt, reached same recording- all circuits are busy. Faheemsarah Martinez Allergies As of Date: 04/20/2023 Noted Allergy Reaction HORSE DANDER 12/05/2018 16 - Unknown Comments: horse serum Date Reviewed: 03/10/2023 Reviewed by: Lizzie Cardoza MD - Fully Assessed Reason for Visit: Medication Problem [65] Prescriptions as of 05/04/2023 - ondansetron (ZOFRAN) 4 mg tablet Take 1 tablet by mouth every 8 hours as needed. - CLARITIN-D 12 HOUR 5-120 mg per tablet Take 1 tablet by mouth two times a day. No generic requesting brand name - sertraline (ZOLOFT) 100 mg tablet Take 1 tablet by mouth once daily. - HYDROcodone-acetamin ophen (NORCO) 5-325 mg per tablet Take 1 tablet by mouth every 6 hours as needed for pain for up to 90 days. - budesonide-formotero l (SYMBICORT) 80-4.5 mcg/actuation inhaler Inhale 2 Puffs as instructed two times a day. - lisinopril (PRINIVIL) 20 mg tablet Take 1 tablet by mouth once daily. - SUMAtriptan (IMITREX) 100 mg tablet Take 1 tablet (100 mg) by mouth as needed. - neomycin/polymyxin b/dexametha(MAXITROL 3.5 MG/ML-10,000 UNIT/ML-0.1% EYE DROPS,SUSPENSION) 1-2 drops 3-4 times a day as needed for external otitis - omeprazole (PRILOSEC) 20 mg capsule Take 1 capsule by mouth twice daily. - Cromolyn Sodium (CROLOM) 4 % ophthalmic solution Use 1-2 Drops in both eyes four times daily. - albuterol HFA (VENTOLIN HFA) 90 mcg/actuation inhaler Inhale 2 Puffs as instructed every 4 hours as needed. - Estradiol (ESTRACE) 0.5 mg tablet Take 1 tablet by mouth once daily. - montelukast (SINGULAIR) 10 mg tablet Take 1 tablet by mouth daily at bedtime. - fluticasone (FLONASE) 50 mcg/actuation nasal spray Use 2 Sprays in each nostril once daily. - diphenoxylate-atropi ne (LOMOTIL) 2.5-0.025 mg per tablet Take 1 tablet by mouth four times daily as needed for up to 60 days. - pyridostigmine (MESTINON) 60 mg tablet Take 1 tablet by mouth three times daily as needed. - budesonide-formotero l (SYMBICORT) 80-4.5 mcg/actuation inhaler Inhale 2 Puffs as instructed twice daily. - naproxen sodium (ANAPROX) 220 mg tablet Take 220 mg by mouth twice daily with meals. - acetaminophen 650 mg CR tablet Take 650 mg by mouth every 8 hours as needed. - OTC PRODUCT Instaflex Advanced Joint Support (collagen, turmeric, resveratrol, black peper, bosellia, hyaluronic acid) - camphor-methyl salicyl-menthol (SALONPAS) 3.1-10-6 % ptmd Apply to affected area. As needed - metFORMIN (GLUCOPHAGE) 500 mg tablet Take 1 tablet by mouth twice daily with meals. . - Cholecalciferol, Vitamin D3, 50 mcg (2,000 unit) cap Take 6,000 Units by mouth once daily. 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* Myasthenia gravis (HCC) [G70.00] Peripheral neuropathy [G62.9] Type 2 diabetes mellitus with diabetic neuropat* Anxiety [F41.9] Chronic asthmatic bronchitis (HCC) [J44.89] 12/05/2018 SANDRA (iron deficiency anemia) [D50.9] 07/15/2020 Other allergic rhinitis [J30.89] 10/07/2021 Allergic conjunctivitis of both eyes [H10.13] 10/07/2021 Anxiety with depression [F41.8] 03/01/2022 Encounter Status:Closed by BELLA FUCHS REBECCA on [facility]/04/23 [facility] GRACE RUSH ([id number]) 1945 F Date Time Provider Department 03/11/23 Beena WHITFIELD [facility] During your visit today, we recorded the following information about you: Veronica Rae 03/11/2023 4:12 PM Signed Patient stated she tried to refill her sertraline rx and [facility] is insisting she doesn't have anymore refills. Epic shows there should be refills at pharmacy. Wants to know if we can clarify with the pharmacy what the issue is. Kamryn Lamar Ma 03/11/2023 4:25 PM Signed Please resend rx Beena Ryan Ma, PA-C 03/11/2023 5:09 PM Signed The following approved medication requests have been transmitted electronically. Requested Prescriptions Signed Prescriptions Disp Refills sertraline (ZOLOFT) 100 mg tablet 90 tablet 3 Sig: Take 1 tablet by mouth once daily. Authorizing Provider: Beena WHITFIELD PA-C Allergies As of Date: 03/11/2023 Noted Allergy Reaction HORSE DANDER 12/05/2018 16 - Unknown Comments: horse serum Date Reviewed: 03/10/2023 Reviewed by: Lizzie Cardoza MD - Fully Assessed Reason for Visit: Rx issue [Other] Visit Diagnoses:Anxiety [F41.9] Anxiety with depression [F41.8] Order(s):sertraline (ZOLOFT) 100 mg tabletTake 1 tablet by mouth once daily.Disp: 90 tabletRfl: 3 Prescriptions as of 03/11/2023 - sertraline (ZOLOFT) 100 mg tablet Take 1 tablet by mouth once daily. - HYDROcodone-acetamin ophen (NORCO) 5-325 mg per tablet Take 1 tablet by mouth every 6 hours as needed for pain for up to 90 days. - budesonide-formotero l (SYMBICORT) 80-4.5 mcg/actuation inhaler Inhale 2 Puffs as instructed two times a day. - ondansetron (ZOFRAN) 4 mg tablet Take 1 tablet by mouth every 8 hours as needed. - lisinopril (PRINIVIL) 20 mg tablet Take 1 tablet by mouth once daily. - SUMAtriptan (IMITREX) 100 mg tablet Take 1 tablet (100 mg) by mouth as needed. - neomycin/polymyxin b/dexametha(MAXITROL 3.5 MG/ML-10,000 UNIT/ML-0.1% EYE DROPS,SUSPENSION) 1-2 drops 3-4 times a day as needed for external otitis - omeprazole (PRILOSEC) 20 mg capsule Take 1 capsule by mouth twice daily. - Cromolyn Sodium (CROLOM) 4 % ophthalmic solution Use 1-2 Drops in both eyes four times daily. - CLARITIN-D 12 HOUR 5-120 mg per tablet Take 1 tablet by mouth twice daily. No generic requesting brand name - albuterol HFA (VENTOLIN HFA) 90 mcg/actuation inhaler Inhale 2 Puffs as instructed every 4 hours as needed. - Estradiol (ESTRACE) 0.5 mg tablet Take 1 tablet by mouth once daily. - montelukast (SINGULAIR) 10 mg tablet Take 1 tablet by mouth daily at bedtime. - fluticasone (FLONASE) 50 mcg/actuation nasal spray Use 2 Sprays in each nostril once daily. - Promethazine-DM (PHENERGAN-DM) 6.25-15 mg/5 mL syrup Take 5 mL by mouth four times daily as needed (not in same 12h as Clariten D). - diphenoxylate-atropi ne (LOMOTIL) 2.5-0.025 mg per tablet Take 1 tablet by mouth four times daily as needed for up to 60 days. - pyridostigmine (MESTINON) 60 mg tablet Take 1 tablet by mouth three times daily as needed. - budesonide-formotero l (SYMBICORT) 80-4.5 mcg/actuation inhaler Inhale 2 Puffs as instructed twice daily. - naproxen sodium (ANAPROX) 220 mg tablet Take 220 mg by mouth twice daily with meals. - acetaminophen 650 mg CR tablet Take 650 mg by mouth every 8 hours as needed. - OTC PRODUCT Instaflex Advanced Joint Support (collagen, turmeric, resveratrol, black peper, bosellia, hyaluronic acid) - camphor-methyl salicyl-menthol (SALONPAS) 3.1-10-6 % ptmd Apply to affected area. As needed - metFORMIN (GLUCOPHAGE) 500 mg tablet Take 1 tablet by mouth twice daily with meals. . - Cholecalciferol, Vitamin D3, 50 mcg (2,000 unit) cap Take 6,000 Units by mouth once daily. 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 Medications Discontinued During This Encounter Prescriptions - sertraline (ZOLOFT) 100 mg tablet (Discontinued) Take 1 tablet by mouth once daily. Encounter Status:Closed by Beena WHITFIELD on 03/11/23 [facility] DXA - AXIAL SKELETONon BD DXA - AXIAL SKELETON * * *Final Repor t* * * DATE OF EXAM: Mar 10 2023 2:02PM WRB [id number] - BD DXA - AXIAL SKELETON / PROCEDURE REASON: Asymptomatic postmenopausal status * * * * Physician Interpretation * * * * PROCEDURE: BD DXA - AXIAL SKELETON INDICATION: Asymptomatic postmenopausal status TECHNIQUE: Low dose AP spine and hip images COMPARISON: January 09, 2019 LUMBAR SPINE: The bone mineral density from L1 through L4 is 1.434 grams per square centimeter which yields a T-score of 3.5. There has been a 6% statistically significant interval decrease in bone mineral density. LEFT HIP: The bone mineral density of the total region of the hip is 0.971 grams per square centimeter which yields a T-score of 0.2. There has been a 6.8% statistically significant interval decrease in bone mineral density. LEFT FEMORAL NECK: The bone mineral density of the femoral neck is 0.733 grams per square centimeter which yields a T-score of -1.0. There has been a 9.0% statistically significant interval decrease in bone mineral density. RIGHT HIP: The bone mineral density of the total region of the hip is 1.026 grams per square centimeter which yields a T-score of 0.7. There has been a 5.7% statistically significant interval decrease in bone mineral density. RIGHT FEMORAL NECK: The bone mineral density of the femoral neck is 0.756 grams per square centimeter which yields a T-score of -0.8. There has been a 5.4% statistically significant interval decrease in bone mineral density. 10-year Fracture Risk (FRAX): Major osteoporotic fracture risk is 16% Hip fracture risk 2.8% IMPRESSION: Osteopenia in the left femoral neck. [facility] ORG. CLASSIFICATION OF BONE MASS CLASSIFICATION T-SCORE Normal Greater than -1 Low Bone Mass Between -1 and -2.5 (Osteopenia) Osteoporosis Less than or equal to -2.5 Research Administrator: ANIYAH Transcribe Date/Time: Mar 10 2023 2:05P Dictated by : MARY LE MD This examination was interpreted and the report reviewed and electronically signed by: MARY LE MD on Mar 10 2023 2:32PM EST [id number] CN Normal [facility] DXA-AXIAL SKELETONon 023 [facility] CNOVon 03-02-2023 CNOV Office Visit (FAMPWS) GRACE RUSH ([id number]) 1945 F Date Time Provider Department 03/02/23 10:40 AM Beena WHITFIELD During your visit today, we recorded the following information about you: Pulse Respiration Blood pressure Weight 83/minute 16/minute 138/80 71.7 kg Beena Whitfield PA-C 03/02/2023 12:41 PM Signed 77 year old female with c/o here for routine follow up Essential hypertension (primary encounter diagnosis) Current meds: Lisinopril 20 mg daily Patient is compliant with meds Yes Monitors bp at home: No. If yes, readings: Denies side effects: Yes. Chest pain: No. Dyspnea: No. Edema: No. Palpitations: No. Syncope: No. Headache: No- doing better, headaches resolved. Dizziness: Has subsided from last visit Last 3 Encounter BP Readings: Date: BP: 03/02/2023 138/80 12/01/2022 116/70 09/03/2022 132/80 Last 2 Encounter Wt Readings: Date: Wt: 03/02/2023 71.7 kg (158 lb) 12/01/2022 70.3 kg (155 lb) Mixed hyperlipidemia Statin intolerance Current medication none Taking medication consistently n/a Not interested in taking cholesterol medication has read research that people live longer with high cholesterol. 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 Chronic minor muscle aches Stomach complaints/ diarrhea Yes, chronic but currently not a problem. Occasionally 1-2 immodium tabs. Last 2 Lipids: Component Latest Ref Rng AND Units 12/21/2020 06/05/2022 Cholesterol, Total <200 mg/dL 285 (H) 290 (H) Triglyceride <150 mg/dL 185 (H) 174 (H) HDL Cholesterol >39 mg/dL 52 48 LDL Cholesterol <100 mg/dL 196 (H) 207 (H) Non HDL Cholesterol <130 mg/dL 233 (H) 242 (H) Fasting Time hrs 10 13 VLDL Cholesterol <30 mg/dL 37 (H) 35 (H) TC:HDL Ratio <5.10 5.48 (H) 6.04 (H) LDL:HDL Ratio <2.54 3.77 (H) 4.31 (H) The 10-year ASCVD risk score (Cresencio BHAGAT, et al., 2019) is: 42.4% Values used to calculate the score: Age: 77 years Sex: Female Is Non- : No Diabetic: Yes Tobacco smoker: No Systolic Blood Pressure: 138 mmHg Is BP treated: Yes HDL Cholesterol: 48 mg/dL Total Cholesterol: 290 mg/dL Type 2 diabetes mellitus with diabetic neuropathy, without long-term current use of insulin (hcc) Current medications: Metformin 500mg twice a day with meals Taking medication as directed consistently? Yes Medical Issues / Complications: hypertension and hyperlipidemia Checking blood sugars at home? No. Watching diet? Eating a variety of foods, not really watching. Physical Activity: Sedentary Hypoglycemic spells? No Any visual disturbance? No Chest pain? No New numbness, tingling or loss of sensation? No Any recent foot problems, sores or rashes? No Any recent or sudden weight loss? No Change in urination? No. Wears diapers constantly. Urinates only during sleep. Any recent illness? No Last eye exam: 1 year ago. Last foot exam: due. Polyneuropathy associated with underlying disease ([facility]) Current medications: Hydrocodone 5-3 25 #28 1 tablet every 6 hours as needed for pain sparingly Camphor-methyl salicylate-menthol patch 3.1-10-6% daily as needed to site Tylenol arthritis 650 mg CR 2 capsules every 8 hours as needed Pain level is better, not as bad. Using Joice very sparingly: cuts in half, at most twice a day. Myasthenia gravis (hcc) Pyridostigmine 60mg three times a day States taking 1/2 pill every 6h because that's all she needs, works well, if takes 60mg gets diarrhea Notes they crumble so actually getting less, get powdery. Noted was getting more fatigued Fatigue currently better Vitamin D3 2000u: 4000u daily confirmed. Component Latest Ref Rng AND Units 12/18/2019 10/07/2021 Vitamin D 25 Hydroxy 31.0 - 80.0 ng/mL 58.1 30.4 (L) Allergic Rhinitis Chronic asthmatic bronchitis Current medications: Cromolyn sodium 4% 1 to 2 drops both eyes 4 times daily Fluticasone 50 MCG per actuation 2 sprays each nostril daily Budesonide-formotero l 2 puffs twice a day Albuterol HFA 90 MCG per actuation 2 puffs every 4 hours as needed Clariten D 5-120mg once a day usually works. 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 Interval history: no significant changes. . Worsening shortness of breath: Yes, with exertion, up and around more until weather changed. Cough: occasional. Wheezing: No. Smoking: No. Compliant with medications: Yes. Using rescue inhaler: has been using albuterol every 6h routinely along with longacting as directed. Feels this is really helping. Otitis externa: Current medications: Neomy/polymyx/dexame th 3.5 mg/mL-10,000 unit/mL - 0.1% 1 to 2 drops as needed Seems to keep eczema controlled with intermittent use. Hasn't been using lately and staring to have problems with ear crusting this week. Associates with al (more content not included)... [facility] GRACE [facility]USH ([id number]) 1945 F Date Time Provider Department 12/02/22 Beena WHITFIELD [facility] During your visit today, we recorded the following information about you: Trista Machado 12/02/2022 5:26 PM Navneet Kay from [employer] area called to give patient update that the request for an air conditioner has been denied as a non-covered Medicare benefit. If there are any questions, you can call her at the number above. Allergies As of Date: 12/02/2022 Noted Allergy Reaction HORSE DANDER 12/05/2018 16 - Unknown Comments: horse serum Date Reviewed: 12/01/2022 Reviewed by: Rosa Maria Montejo - Fully Assessed Reason for Visit: Patient Update [1234] Prescriptions as of 12/03/2022 - HYDROcodone-acetamin ophen (NORCO) 5-325 mg per tablet Take 1 tablet by mouth every 6 hours as needed for pain for up to 90 days. - omeprazole (PRILOSEC) 20 mg capsule Take 1 capsule by mouth twice daily. - ondansetron (ZOFRAN) 4 mg tablet Take 1 tablet by mouth every 8 hours as needed. - Cromolyn Sodium (CROLOM) 4 % ophthalmic solution Use 1-2 Drops in both eyes four times daily. - CLARITIN-D 12 HOUR 5-120 mg per tablet Take 1 tablet by mouth twice daily. No generic requesting brand name - albuterol HFA (VENTOLIN HFA) 90 mcg/actuation inhaler Inhale 2 Puffs as instructed every 4 hours as needed. - Estradiol (ESTRACE) 0.5 mg tablet Take 1 tablet by mouth once daily. - montelukast (SINGULAIR) 10 mg tablet Take 1 tablet by mouth daily at bedtime. - sertraline (ZOLOFT) 100 mg tablet Take 1 tablet by mouth once daily. - SUMAtriptan (IMITREX) 100 mg tablet Take 1 tablet by mouth as needed. - fluticasone (FLONASE) 50 mcg/actuation nasal spray Use 2 Sprays in each nostril once daily. - lisinopril (PRINIVIL) 20 mg tablet Take 1 tablet by mouth once daily. - Promethazine-DM (PHENERGAN-DM) 6.25-15 mg/5 mL syrup Take 5 mL by mouth four times daily as needed (not in same 12h as Clariten D). - diphenoxylate-atropi ne (LOMOTIL) 2.5-0.025 mg per tablet Take 1 tablet by mouth four times daily as needed for up to 60 days. - pyridostigmine (MESTINON) 60 mg tablet Take 1 tablet by mouth three times daily as needed. - budesonide-formotero l (SYMBICORT) 80-4.5 mcg/actuation inhaler Inhale 2 Puffs as instructed twice daily. - budesonide-formotero l (SYMBICORT) 80-4.5 mcg/actuation inhaler Inhale 2 Puffs as instructed twice daily. - neomycin/polymyxin b/dexametha(MAXITROL 3.5 MG/ML-10,000 UNIT/ML-0.1% EYE DROPS,SUSPENSION) 1-2 drops 3-4 times a day as needed for external otitis - naproxen sodium (ANAPROX) 220 mg tablet Take 220 mg by mouth twice daily with meals. - acetaminophen 650 mg CR tablet Take 650 mg by mouth every 8 hours as needed. - OTC PRODUCT Instaflex Advanced Joint Support (collagen, turmeric, resveratrol, black peper, bosellia, hyaluronic acid) - camphor-methyl salicyl-menthol (SALONPAS) 3.1-10-6 % ptmd Apply to affected area. As needed - metFORMIN (GLUCOPHAGE) 500 mg tablet Take 1 tablet by mouth twice daily with meals. . - Cholecalciferol, Vitamin D3, 50 mcg (2,000 unit) cap Take 6,000 Units by mouth once daily. 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* Myasthenia gravis (HCC) [G70.00] Peripheral neuropathy [G62.9] Type 2 diabetes mellitus with diabetic neuropat* Anxiety [F41.9] Chronic asthmatic bronchitis (HCC) [J44.9] 12/05/2018 SANDRA (iron deficiency anemia) [D50.9] 07/15/2020 Other allergic rhinitis [J30.89] 10/07/2021 Allergic conjunctivitis of both eyes [H10.13] 10/07/2021 Anxiety with depression [F41.8] 03/01/2022 Encounter Status:Closed by REBECCA BLANCO MA on 12/03/22 Normal [facility] CK SerPl-cCncon 12-01-2022 CK [Catalytic activity/Vol] 57 U/L Normal 42-196 [facility] Comment on above: Order Comment: Speci men Type: BLOOD SPECIMENOrdering Facility: [facility] Address: [address] [place] [address] [place] [address] Performed By: #### 2 4323-8, 2157-6 ####[facility] LABCLROWDY [id number] [id number] [id number] [facility] CNCOon 12-01-2022 CNCO Letter Text Normal [facility] CNOVon 12-01-2022 CNOV Office Visit (FAMPWS) GRACE RUSH ([id number]) 1945 F Date Time Provider Department 12/01/22 10:00 AM Beena WHITFIELD During your visit today, we recorded the following information about you: Pulse Blood pressure Weight Height 89/minute 116/70 70.3 kg 1.6 m M eSrgio Whitfield PA-C 12/01/2022 10:37 AM Signed BONE MINERAL DENSITY PATIENT INSTRUCTIONS = Bone mineral density testing measures the amount of calcium in certain parts of your bones. This information determines how strong your bones are. The test is used to detect osteoporosis, a disease in which the bone's mineral content and density are low, increasing a person's risk of fractures. The lumbar spine (lower back) and the hip are the skeletal sites usually examined. For the test, remember that: 1. You cannot take this test if you are . 2. Eat a normal diet on the day of the test. 3. Take your medications as you normally would. 4. DO NOT take calcium supplements (such as Tums) for 24 hours before the test. 5. On the day of the test, leave valuables (jewelry or credit cards) at home. 6. The test should be performed prior to oral, rectal or IV contrast studies, or at least 7 days after any of these studies. For the test, you may be asked to wear a hospital gown. You will lie on your back, on a padded table, in a comfortable position. Generally, you can resume your usual activities immediately. Beena Whitfield PA-C 12/01/2022 2:01 PM Signed 77 year old female with c/o here for 3 month follow up Essential hypertension (primary encounter diagnosis) Current meds: Lisinopril 20 mg daily Patient is compliant with meds Yes Monitors bp at home: No. If yes, readings: Denies side effects: Yes. Chest pain: No. Dyspnea: No. Edema: No. Palpitations: No. Syncope: No. Headache: No- doing better, headaches resolved. Dizziness: Has subsided from last visit Component Latest Ref Rng AND Units 12/21/2020 09/26/2021 06/05/2022 WBC 3.70 - 11.00 k/uL 9.11 12.65 (H) RBC 3.90 - 5.20 m/uL 4.44 4.10 Hemoglobin 11.5 - 15.5 g/dL 12.8 11.6 Hematocrit 36.0 - 46.0 % 41.1 37.5 MCV 80.0 - 100.0 fL 92.6 91.5 MCH 26.0 - 34.0 pg 28.8 28.3 MCHC 30.5 - 36.0 g/dL 31.1 30.9 RDW-CV 11.5 - 15.0 % 14.8 14.1 Platelet Count 150 - 400 k/uL 441 (H) 439 (H) MPV 9.0 - 12.7 fL 10.4 10.6 Neut% % 60.7 80.9 Abs Neut (ANC) 1.45 - 7.50 k/uL 5.51 10.23 (H) Lymph% % 27.3 11.9 Abs Lymph 1.00 - 4.00 k/uL 2.49 1.51 [place]% % 7.1 4.4 Abs [place] <0.87 k/uL 0.65 0.56 Eosin% % 4.0 1.6 Abs Eosin <0.46 k/uL 0.36 0.20 Baso% % 0.9 0.7 Abs Baso <0.11 k/uL 0.08 0.09 Immature Gran % % 0.5 IMMATURE GRANS (ABS) <0.10 k/uL 0.06 NRBC /100 WBC 0.0 Absolute nRBC <0.01 k/uL <0.01 <0.01 DTYPE Auto Nucleated Reds 0 /100 WBC 0.0 Diff Type Auto Diff Protein, Total 6.3 - 8.0 g/dL 7.0 7.2 6.6 Albumin 3.9 - 4.9 g/dL 3.8 (L) 4.0 3.9 Calcium 8.5 - 10.2 mg/dL 10.0 10.1 9.5 Bilirubin, Total 0.2 - 1.3 mg/dL 0.3 0.2 0.2 Alkaline Phosphatase 34 - 123 U/L 124 (H) 119 103 AST 13 - 35 U/L 17 20 20 Glucose 74 - 99 mg/dL 103 (H) 148 (H) 105 (H) BUN 7 - 21 mg/dL 21 20 22 (H) Creatinine 0.58 - 0.96 mg/dL 0.74 0.78 0.77 Sodium 136 - 144 mmol/L 138 140 138 Potassium 3.7 - 5.1 mmol/L 4.4 4.1 4.4 Chloride 97 - 105 mmol/L 104 104 103 CO2 22 - 30 mmol/L 21 (L) 23 23 Anion Gap 9 - 18 mmol/L 13 13 12 ALT 7 - 38 U/L 17 21 18 eGFR- >60 eGFR-All Other Races . >60 eGFR >=60 mL/min/1.73mA? 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 Chronic minor muscle aches Stomach complaints/ diarrhea Yes, chronic but currently not a problem. Occasionally 1-2 immodium tabs. Last 2 Lipids: Component Latest Ref Rng AND Units 07/01/2018 06/05/2022 Cholesterol, Total <200 mg/dL 291 (H) 290 (H) Triglyceride <150 mg/dL 203 (H) 174 (H) HDL Cholesterol >39 mg/dL 62 48 LDL Cholesterol <100 mg/dL 188 (H) 207 (H) Non HDL Cholesterol <130 mg/dL 229 (H) 242 (H) Fasting Time hrs Unknown 13 VLDL Cholesterol <30 mg/dL 41 (H) 35 (H) TC:HDL Ratio <5.10 4.69 6.04 (H) LDL:HDL Ratio <2.54 3.03 (H) 4.31 (H) Type 2 diabetes mellitus with diabetic neuropathy, without long-term current use of insulin (hcc) Current medications: Metformin 500mg twice a day with meals Taking medication as directed consistently? Yes Medical Issues / Complications: hypertension and hyperlipidemia Checking blood sugars at home? No. Watching diet? Eating a variety of foods, not really watching. Physical Activity: Sedentary Hypoglycemic spells? No Any visual disturbance? No Chest pain? No New numbness, tingling or loss of sensation? No Any recent foot problems, sores or rashes? No (more content not included)... Normal [facility] GRACE RUSH ([id number]) 1945 F Date Time Provider Department 12/01/22 [facility] During your visit today, we recorded the following information about you: Veronica Inocencio HUTTON 12/01/2022 9:05 AM Signed Eliza from [employer] would like Rx/letter for Air Conditioner for Pt. She has COPD and allergies. Please fax to . Beena Whitfield PA-C 12/01/2022 1:17 PM Signed Printed. Thanks, SATHISH Rothman Ma 12/01/2022 4:28 PM Signed Letter faxed Allergies As of Date: 12/01/2022 Noted Allergy Reaction HORSE DANDER 12/05/2018 16 - Unknown Comments: horse serum Date Reviewed: 12/01/2022 Reviewed by: Rosa Maria Montejo - Fully Assessed Reason for Visit: Letter [264] Prescriptions as of 12/01/2022 - HYDROcodone-acetamin ophen (NORCO) 5-325 mg per tablet Take 1 tablet by mouth every 6 hours as needed for pain for up to 90 days. - omeprazole (PRILOSEC) 20 mg capsule Take 1 capsule by mouth twice daily. - ondansetron (ZOFRAN) 4 mg tablet Take 1 tablet by mouth every 8 hours as needed. - Cromolyn Sodium (CROLOM) 4 % ophthalmic solution Use 1-2 Drops in both eyes four times daily. - CLARITIN-D 12 HOUR 5-120 mg per tablet Take 1 tablet by mouth twice daily. No generic requesting brand name - albuterol HFA (VENTOLIN HFA) 90 mcg/actuation inhaler Inhale 2 Puffs as instructed every 4 hours as needed. - Estradiol (ESTRACE) 0.5 mg tablet Take 1 tablet by mouth once daily. - montelukast (SINGULAIR) 10 mg tablet Take 1 tablet by mouth daily at bedtime. - sertraline (ZOLOFT) 100 mg tablet Take 1 tablet by mouth once daily. - SUMAtriptan (IMITREX) 100 mg tablet Take 1 tablet by mouth as needed. - fluticasone (FLONASE) 50 mcg/actuation nasal spray Use 2 Sprays in each nostril once daily. - lisinopril (PRINIVIL) 20 mg tablet Take 1 tablet by mouth once daily. - Promethazine-DM (PHENERGAN-DM) 6.25-15 mg/5 mL syrup Take 5 mL by mouth four times daily as needed (not in same 12h as Clariten D). - diphenoxylate-atropi ne (LOMOTIL) 2.5-0.025 mg per tablet Take 1 tablet by mouth four times daily as needed for up to 60 days. - pyridostigmine (MESTINON) 60 mg tablet Take 1 tablet by mouth three times daily as needed. - budesonide-formotero l (SYMBICORT) 80-4.5 mcg/actuation inhaler Inhale 2 Puffs as instructed twice daily. - budesonide-formotero l (SYMBICORT) 80-4.5 mcg/actuation inhaler Inhale 2 Puffs as instructed twice daily. - neomycin/polymyxin b/dexametha(MAXITROL 3.5 MG/ML-10,000 UNIT/ML-0.1% EYE DROPS,SUSPENSION) 1-2 drops 3-4 times a day as needed for external otitis - naproxen sodium (ANAPROX) 220 mg tablet Take 220 mg by mouth twice daily with meals. - acetaminophen 650 mg CR tablet Take 650 mg by mouth every 8 hours as needed. - OTC PRODUCT Instaflex Advanced Joint Support (collagen, turmeric, resveratrol, black peper, bosellia, hyaluronic acid) - camphor-methyl salicyl-menthol (SALONPAS) 3.1-10-6 % ptmd Apply to affected area. As needed - metFORMIN (GLUCOPHAGE) 500 mg tablet Take 1 tablet by mouth twice daily with meals. . - Cholecalciferol, Vitamin D3, 50 mcg (2,000 unit) cap Take 6,000 Units by mouth once daily. Problem List As Of Date 12/01/2022 Noted Resolved Essential hypertension [I10] Fibromyalgia [M79.7] GERD (gastroesophageal reflux disease) [K21.9] Mixed hyperlipidemia [E78.2] Major depression in partial remission (HCC) [F3* Myasthenia gravis (HCC) [G70.00] Peripheral neuropathy [G62.9] Type 2 diabetes mellitus with diabetic neuropat* Anxiety [F41.9] Chronic asthmatic bronchitis (HCC) [J44.9] 12/05/2018 SANDRA (iron deficiency anemia) [D50.9] 07/15/2020 Other allergic rhinitis [J30.89] 10/07/2021 Allergic conjunctivitis of both eyes [H10.13] 10/07/2021 Anxiety with depression [F41.8] 03/01/2022 Encounter Status:Closed by Beena WHITFIELD on 12/01/22 Normal [facility] Comprehensive metabolic 2000 panelon 12-01-2022 Albumin [Mass/Vol] 3.9 g/dL Normal 3.9-4.9 [facility] Comment on above: Order Comment: Speci men Type: BLOOD SPECIMENOrdering Facility: [facility] Address: [address] [id number] Performed By: #### 2 4323-8, 2157-6 ####[facility] LABCLIA [id number] [address] [id number], [place] [address] [place] ALP [Catalytic activity/Vol] 97 U/L Normal 34-123 [facility] Comment on above: Order Comment: Speci men Type: BLOOD SPECIMENOrdering Facility: [facility] Address: [address] [place] [address] Performed By: #### 2 4323-8, 2156-10 ####[facility] LABCLIA [id number] [place] [address] [place] ALT [Catalytic activity/Vol] 20 U/L Normal 7-38 [facility] Comment on above: Order Comment: Speci men Type: BLOOD SPECIMENOrdering Facility: [facility] Address: [address] [place], [place] [id number] Performed By: #### 2 432-8, 2156-10 ####[facility] LABCLIA [id number] [place] [address] [place] Anion gap [Moles/Vol] 18 mmol/L Normal 9-18 [facility] Comment on above: Order Comment: Speci men Type: BLOOD SPECIMENOrdering Facility: [facility] Address: [address] [place], [place] [id number] Performed By: #### 2 4328, 2156-10 ####[facility] LABCLIA [id number] [address] [place] AST [Catalytic activity/Vol] 17 U/L Normal 13-35 [facility] Comment on above: Order Comment: Speci men Type: BLOOD SPECIMENOrdering Facility: [facility] Address: [address] [place], [place] [id number] Performed By: #### 2 4323-8, 2156-10 ####[facility] LABCLIA [id number] [place] [address] [place] Bilirubin [Mass/Vol] mg/dL Low 0.2-1.3 [facility] Comment on above: Order Comment: Speci men Type: BLOOD SPECIMENOrdering Facility: [facility] Address: [address] Performed By: #### 2 4323-8, 2156-10 ####[facility] LABCLIA [id number] [place] [address] [place] Calcium [Mass/Vol] 9.7 mg/dL Normal 8.5-10.2 [facility] Comment on above: Order Comment: Speci men Type: BLOOD SPECIMENOrdering Facility: [facility] Address: [address] Performed By: #### 2 432-8, 2156-10 ####[facility] LABCLIA [id number] [place] [address] [place] Chloride [Moles/Vol] 104 mmol/L Normal 97-105 [facility] Comment on above: Order Comment: Speci men Type: BLOOD SPECIMENOrdering Facility: [facility] Address: [address] Performed By: #### 2 4328, 2156-10 ####[facility] LABCLIA [id number] [place] [address] [place] CO2 [Moles/Vol] 16 mmol/L Low 22-30 [facility] Comment on above: Order Comment: Speci men Type: BLOOD SPECIMENOrdering Facility: [facility]. [facility] Address: [address] [id number] Performed By: #### 2 4323-8, 2156-10 ####[facility] LABCLIA [id number] [place] [id number] [place] Creatinine [Mass/Vol] 0.66 mg/dL Normal 0.58-0.96 [facility] Comment on above: Order Comment: Speci men Type: BLOOD SPECIMENOrdering Facility: [facility] Address: [address] Performed By: #### 2 4328, 2156-10 ####[facility] LABCLIA [id number] [place] [address] [place] ESTIMATED GLOMERULAR FILTRATION RATE 92 mL/min/1.73m??? Normal >=60 [facility] Comment on above: Order Comment: Loly mcpherson Type: BLOOD SPECIMENOrdering Facility: [facility] Address: [address] [place] [address] Result Comment: Loren mated Glomerular Filtration Rate (eGFR) is calculated using the 2020 CKD-EPI creatinine equation. This equation utilizes serum creatinine, sex, and age as parameters. The creatinine assay has traceable calibration to isotope dilution-mass spectrometry. Refer to KDIGO guidelines for clinical interpretation. In patients with unstable renal function, e.g. those with acute kidney injury, the eGFR may not accurately reflect actual GFR. Performed By: #### 2 432-8, 2156-10 ####[facility] [id number] [place] [address] [place] Glucose [Mass/Vol] 123 mg/dL High 74-99 [facility] Comment on above: Order Comment: Loly mcpherson Type: BLOOD SPECIMENOrdering Facility: [facility] Address: [address] [place] [address] Result Comment: The [place] Diabetes Association (ADA) provides guidance for cutoff values for fasting glucose and random glucose. The ADA defines fasting as no caloric intake for at least 8 hours. Fasting plasma glucose results between 100 to 125 mg/dL indicate increased risk for diabetes (prediabetes). Fasting plasma glucose results greater than or equal to 126 mg/dL meet the criteria for diagnosis of diabetes. In the absence of unequivocal hyperglycemia, results should be confirmed by repeat testing. In a patient with classic symptoms of hyperglycemia or hyperglycemic crisis, random plasma glucose results greater than or equal to 200 mg/dL meet the criteria for diagnosis of diabetes. Reference: Standards of Medical Care in Diabetes 2016, [place] Diabetes Association. Diabetes Care. 2016.39(Suppl 1). Performed By: #### 2 4323-8, 2156-10 ####[facility] LABIA [id number] [place] [address] [place] Potassium [Moles/Vol] 4.4 mmol/L Normal 3.7-5.1 [facility] Comment on above: Order Comment: Speci men Type: BLOOD SPECIMENOrdering Facility: [facility] Address: [address] [place], [place] [id number] Performed By: #### 2 4323-8, 2156-10 ####[facility] LABCLIA [id number] [place] [address] [place] Protein [Mass/Vol] 6.8 g/dL Normal 6.3-8.0 [facility] Comment on above: Order Comment: Speci men Type: BLOOD SPECIMENOrdering Facility: [facility] Address: [address] [place] [address] Performed By: #### 2 432-8, 2156-10 ####[facility] LABCLIA [id number] [place] [address] [place] Sodium [Moles/Vol] 138 mmol/L Normal 136-144 [facility] Comment on above: Order Comment: Speci men Type: BLOOD SPECIMENOrdering Facility: [facility] Address: [address] [place], [place] [id number] Performed By: #### 2 4323-8, 2156-10 ####[facility] LABCLIA [id number] [place] [address] [place] Urea nitrogen [Mass/Vol] 21 mg/dL Normal 7-21 [facility] Comment on above: Order Comment: Speci men Type: BLOOD SPECIMENOrdering Facility: [facility] Address: [address] [place], [place] [id number] Performed By: #### 2 4323-8, 2156-10 ####[facility] LABCLIA [id number] [place] [address] [place] HbA1c (Bld)on 12-01-2022 Average glucose Estimated from glycated hemoglobin (Bld) [Mass/Vol] 123 mg/dL Normal [facility] Comment on above: Order Comment: Loly mcpherson Type: BLOOD SPECIMENOrdering Facility: [facility] Address: [address] [place] [address] Result Comment: eAG: (Estimated average glucose) is a calculated value from HgbA1c and is medical billing representative of the average blood glucose level in the last 2-3 month period. Performed By: #### 5 5454-3 ####[facility] LABCLIA [id number] [address] STATES OF [facility] HbA1c (Bld) [Mass fraction] 5.9 % High 4.3-5.6 [facility] Comment on above: Order Comment: Loly mcpherson Type: BLOOD SPECIMENOrdering Facility: [facility] Address: [address] [place] [address] Result Comment: [place] Diabetes Association guidelines indicate that patients with HgbA1c in the range 5.7-6.4% are at increased risk for development of diabetes, and intervention by lifestyle modification may be beneficial. HgbA1c greater or equal to 6.5% is considered diagnostic of diabetes. Performed By: #### 5 5454-3 ####[facility] LABCLIA [id number] [address] CBC panel Auto (Bld)on 10-07 Erythrocyte distribution width (RBC) [Ratio] 13.8 % 11.5 - 15.0 % [facility] Hematocrit (Bld) [Volume fraction] 39.7 % 36.0 - 46.0 % [facility] Hemoglobin (Bld) [Mass/Vol] 12.0 g/dL 11.5 - 15.5 g/dL [facility] MCH (RBC) [Entitic mass] 28.3 pg 26. 0 - 34.0 pg [facility] MCHC (RBC) [Mass/Vol] 30.2 g/dL Low 30.5 - 36.0 g/dL [facility] MCV (RBC) [Entitic vol] 93.6 fL 80.0 - 100.0 fL [facility] Nucleated RBC (Bld) [#/Vol] 10*3/uL <0.01 k/uL [facility] Platelet mean volume (Bld) [Entitic vol] 10.9 fL 9.0 - 12.7 fL [facility] Platelets (Bld) [#/Vol] 351 10*3/uL 150 - 400 k/uL [facility] RBC (Bld) [#/Vol] 4.24 10*6/uL 3.90 - 5.2 0 m/uL [facility] WBC (Bld) [#/Vol] 12.56 10*3/uL High 3.70 - 11 .00 k/uL [facility] Vital Signs Date Time Vital Sign Value Performing Clinician Faci lity 07-13-2023 11:35-0500 Diastolic blood pressure 80 mm[Hg] NA Whitfield PA-C Work Phone: [facility] 07-13-2023 11:35-0500 Heart rate 93 /min NA Whitfield PA-C Work Phone: [facility] 07-13-2023 11:35-0500 Respiratory rate 16 /min NA Whitfield PA-C Work Phone: [facility] 07-13-2023 11:35-0500 SaO2% (BldA) [Mass fraction] 96 % NA Whitfield PA-C Work Phone: [facility] 07-13-2023 11:35-0500 Systolic blood pressure 134 mm[Hg] NA Whitfield PA-C Work Phone: [facility] 03-02-2023 10:43-0400 Body weight 71.67 kg NA Whitfield PA-C Work Phone: [facility] 03-02-2023 10:43-0400 Diastolic blood pressure 80 mm[Hg] NA Whitfield PA-C Work Phone: [facility] 03-02-2023 10:43-0400 Heart rate 83 /min NA Whitfield PA-C Work Phone: [facility] 03-02-2023 10:43-0400 Respiratory rate 16 /min NA Whitfield PA-C Work Phone: [facility] 03-02-2023 10:43-0400 SaO2% (BldA) [Mass fraction] 99 % NA Whitfield PA-C Work Phone: [facility] 03-02-2023 10:43-0400 Systolic blood pressure 138 mm[Hg] NA Whitfield PA-C Work Phone: [facility] 12-01-2022 10:38-0400 Body height 160 cm NA Whitfield PA-C Work Phone: [facility] 12-01-2022 10:38-0400 Body weight 70.31 kg NA Whitfield PA-C Work Phone: [facility] 12-01-2022 10:38-0400 Diastolic blood pressure 70 mm[Hg] NA Whitfield PA-C Work Phone: [facility] 12-01-2022 10:38-0400 Heart rate 89 /min NA Whiftield PA-C Work Phone: [facility] 12-01-2022 10:38-0400 SaO2% (BldA) [Mass fraction] 97 % NA Whitfield PA-C Work Phone: [facility] 12-01-2022 10:38-0400 Systolic blood pressure 116 mm[Hg] NA Whitfield PA-C Work Phone: [facility] 09-03-2022 10:08-0400 Body weight 66.68 kg NA Whitfield PA-C Work Phone: [facility] 09-03-2022 10:08-0400 Diastolic blood pressure 80 mm[Hg] NA Whitfield PA-C Work Phone: [facility] 09-03-2022 10:08-0400 Heart rate 91 /min NA Whitfield PA-C Work Phone: [facility] 09-03-2022 10:08-0400 Respiratory rate 16 /min NA Whitfield PA-C Work Phone: [facility] 09-03-2022 10:08-0400 SaO2% (BldA) [Mass fraction] 99 % NA Whitfield PA-C Work Phone: [facility] 09-03-2022 10:08-0400 Systolic blood pressure 132 mm[Hg] NA Whitfield PA-C Work Phone: [facility] 06-05-2022 10:15-0500 Body weight 72.58 kg NA Whitfield PA-C Work Phone: [facility] 06-05-2022 10:15-0500 Diastolic blood pressure 74 mm[Hg] NA Whitfield PA-C Work Phone: [facility] 06-05-2022 10:15-0500 Heart rate 88 /min NA Whitfield PA-C Work Phone: [facility] 06-05-2022 10:15-0500 Respiratory rate 18 /min NA Whitfield PA-C Work Phone: [facility] 06-05-2022 10:15-0500 SaO2% (BldA) [Mass fraction] 97 % NA Whitfield PA-C Work Phone: [facility] 06-05-2022 10:15-0500 Systolic blood pressure 120 mm[Hg] NA Whitfield PA-C Work Phone: [facility] 03-02-2022 10:21-0400 Body weight 67.95 kg NA Whitfield PA-C Work Phone: [facility] 03-02-2022 10:21-0400 Diastolic blood pressure 78 mm[Hg] NA Whitfield PA-C Work Phone: [facility] 03-02-2022 10:21-0400 Heart rate 84 /min NA Whitfield PA-C Work Phone: [facility] 03-02-2022 10:21-0400 Systolic blood pressure 126 mm[Hg] NA Whitfield PA-C Work Phone: [facility] 10-07-2021 08:06-0400 Body weight 76.66 kg NA Whitfield PA-C Work Phone: [facility] 10-07-2021 08:06-0400 Diastolic blood pressure 74 mm[Hg] NA Whitfield PA-C Work Phone: [facility] 10-07-2021 08:06-0400 Heart rate 77 /min NA Whitfield PA-C Work Phone: [facility] 10-07-2021 08:06-0400 SaO2% (BldA) [Mass fraction] 95 % NA Whitfield PA-C Work Phone: [facility] 10-07-2021 08:06-0400 Systolic blood pressure 128 mm[Hg] NA Whitfield PA-C Work Phone: [facility] Encounters Encounter Date Encounter Type Care Provider Facility Start: 09-12-2024 End: 09-12-2024 ambulatory Beena Hinkleon PA Work Phone: [facility] Work Phone: Start: 09-12-2024 End: 09-12-2024 Departed Referred Ishaan Haley Wa Anurag segovia Start: 09-12-2024 End: 09-12-2024 ambulatory Ishaan CURTIS Facility:[facility] Start: 08-29-2024 End: 08-29-2024 ambulatory Beena Hinkleon PA Work Phone: [facility] Work Phone: Start: 08-29-2024 End: 08-29-2024 Departed Referred Ishaan Haley [place] [place] Start: 08-29-2024 Registered Referred Ishaan Melgar [facility] Start: 08-29-2024 End: 08-29-2024 ambulatory Ishaan CURTIS Facility:[facility] Start: 08-14-2024 End: 08-14-2024 ambulatory Beena Whitfield PA Work Phone: [facility] Work Phone: Start: 08-14-2024 End: 08-14-2024 Departed Referred Ishaan Haley [place] [place] Start: 08-14-2024 End: 08-14-2024 ambulatory Ishaan CURTIS Facility:[facility] Start: 05-16-2024 ambulatory Ishaan CURTIS Facil ity:[facility] Start: 05-16-2024 Registered Referred Ishaan Bernabe MD [facility] Start: 02-14-2024 End: 02-14-2024 ambulatory Ishaan CURTIS Facility:[facility] Start: 11-15-2023 End: 11-15-2023 ambulatory Ishaan CURTIS Facility:[facility] Start: 10-23-2023 ambulatory Beena Arreguin ility:[facility] Start: 10-23-2023 End: 10-29-2023 Evaluation and management of inpatient Mariano Glover Facility:[facility] Start: 10-22-2023 ambulatory Mariano Glover Facilit y:[facility] Start: 10-19-2023 Telephone encounter Jose Miguel Fernandes Comment on above: Patient Update Start: 10-04-2023 Telephone encounter Jaquelin faith [employer] [facility] Comment on above: Orders Start: 09-10-2023 Refill Beena camp PA-C Work Phone: [facility] Comment on above: Refill Request Start: 07-28-2023 Telephone encounter Beena Whitfield PA-C Work Phone: [facility] Comment on above: Orders Patient Question Start: 07-15-2023 Telephone encounter Jose Miguel Fernandes Start: 07-13-2023 End: 07-13-2023 ambulatory Beena WHITFIELD Facility:[facility] Start: 07-13-2023 End: 07-13-2023 Patient encounter procedure Beena Whitfield PA-C Work Phone: [facility] Comment on above: Encounter for immuni zation (Primary Dx); Myasthenia gravis (HCC); Recurrent major depressive disorder, in partial remission (HCC); Type 2 diabetes mellitus with diabetic neuropathy, without long-term current use of insulin (HCC); Migraine with aura, not intractable, without status migrainosus; Chronic asthmatic bronchitis; Chronic pain of both shoulders; Chronic hand pain, unspecified laterality; Nausea; Age-related physical debility; Fatigue, unspecified type Start: 04-20-2023 Telephone encounter Beena Whitfield PA-C Work Phone: [facility] Comment on above: Medication Problem Start: 03-30-2023 Refill Beena camp PA-C Work Phone: [facility] Comment on above: Refill Request Start: 03-11-2023 Telephone encounter Beena Whitfield PA-C Work Phone: [facility] Comment on above: Rx issue Start: 03-10-2023 End: 03-10-2023 ambulatory LIZZIE CARDOZA Facility:[facility] Start: 03-10-2023 End: 03-10-2023 Patient encounter procedure Lizzie Cardoza MD Work Phone: Ophthalmology Comment on above: Type 2 diabetes pam itus without retinopathy (HCC) (Primary Dx); Myasthenia gravis (HCC); Combined forms of age-related cataract of both eyes; Dry eye syndrome of both eyes Start: 03-10-2023 End: 03-10-2023 Subsequent hospital visit by physician [facility] Work Phone: Radiology Comment on above: Asymptomatic postmen opausal status [Z78.0] Start: 03-02-2023 End: 03-02-2023 ambulatory Beena WHITFIELD Facility:[facility] Start: 03-02-2023 End: 03-02-2023 Patient encounter procedure Beena Whitfield PA-C Work Phone: [facility] Comment on above: Essential hypertensi on (Primary Dx); Mixed hyperlipidemia; Statin intolerance; Type 2 diabetes mellitus with diabetic neuropathy, without long-term current use of insulin (HCC); Polyneuropathy associated with underlying disease (HCC); Myasthenia gravis (HCC); Vitamin D deficiency; Other allergic rhinitis; Allergic conjunctivitis of both eyes; Chronic asthmatic bronchitis; Chronic otitis externa of both ears, unspecified type; Fibromyalgia; Anxiety with depression; Recurrent major depressive disorder, in partial remission (HCC); Chronic pain of both shoulders; Chronic hand pain, unspecified laterality; Nausea; Asymptomatic postmenopausal status Start: 12-02-2022 Telephone encounter Beena Whitfield PA-C Work Phone: [facility] Comment on above: Patient Update Start: 12-01-2022 Telephone encounter Beena Whitfield PA-C Work Phone: [facility] Comment on above: Letter Start: 12-01-2022 End: 12-02-2022 ambulatory Beena WHTIFIELD Facility:[facility] Start: 12-01-2022 End: 12-01-2022 Patient encounter procedure Beena TIRADOC Work Phone: [facility] Comment on above: Essential hypertensi on (Primary Dx); Mixed hyperlipidemia; Statin intolerance; Type 2 diabetes mellitus with diabetic neuropathy, without long-term current use of insulin (HCC); Polyneuropathy associated with underlying disease (HCC); Myasthenia gravis (HCC); Vitamin D deficiency; Other allergic rhinitis; Chronic asthmatic bronchitis (HCC); Chronic otitis externa of both ears, unspecified type; Fibromyalgia; Gastroesophageal reflux disease, unspecified whether esophagitis present; Anxiety with depression; Chronic left shoulder pain; Asymptomatic postmenopausal status; Thrombocytosis; Neutrophilia; Chronic pain of both shoulders; Chronic hand pain, unspecified laterality; Nausea; Screening for colon cancer; Encounter for immunization; Recurrent major depressive disorder, in partial remission (HCC) Start: 11-13-2022 Refill Beena DAUGHERTYAccuvant Work Phone: [facility] Comment on above: Refill Request Start: 09-03-2022 End: 09-03-2022 Patient encounter procedure Beena TIRADOC Work Phone: [facility] Comment on above: Essential hypertensi on (Primary Dx); Mixed hyperlipidemia; Type 2 diabetes mellitus with diabetic neuropathy, without long-term current use of insulin (HCC); Polyneuropathy associated with underlying disease (HCC); Myasthenia gravis (HCC); Chronic asthmatic bronchitis (HCC); Other allergic rhinitis; Chronic otitis externa of both ears, unspecified type; Vitamin D deficiency; Fibromyalgia; Gastroesophageal reflux disease, unspecified whether esophagitis present; Anxiety; Recurrent major depressive disorder, in partial remission (HCC); Anxiety with depression; Migraine with aura, not intractable, without status migrainosus; Chronic pain of both shoulders; Chronic hand pain, unspecified laterality Start: 07-31-2022 Refill Beena DAUGHERTYAccuvant Work Phone: [facility] Comment on above: Refill Request Start: 07-06-2022 Refill Beena Hinkle on PA-C Work Phone: [facility] Comment on above: Refill Request Start: 06-19-2022 Telephone encounter Beena Whitfield PA-C Work Phone: [facility] Comment on above: Insurance Authorizat ion ([employer] ) Start: 06-05-2022 End: 06-05-2022 Patient encounter procedure Beena Whitfield PA-C Work Phone: [facility] Comment on above: Type 2 diabetes pam itus with diabetic neuropathy, without long-term current use of insulin (HCC) (Primary Dx); Anxiety with depression; Anxiety; Chronic diarrhea; Chronic pain of both shoulders; Chronic hand pain, unspecified laterality; Myasthenia gravis ([facility]) Start: 06-02-2022 ambulatory Beena Hinkle on PA-C Work Phone: [facility] Comment on above: Dizziness Start: 05-14-2022 Refill Beena Hinkle on PA-C Work Phone: [facility] Comment on above: Refill Request Start: 05-08-2022 Refill Beena Hinkle on PA-C Work Phone: [address] [place] [address] Comment on above: Refill Request Start: 04-30-2022 Refill Beena Hinkle on PA-C Work Phone: [facility] Comment on above: Refill Request Start: 03-23-2022 Refill Beena Hinkle on PA-C Work Phone: [facility] Comment on above: Refill Request Start: 03-02-2022 Telephone encounter Beena Whitfield PA-C Work Phone: [facility] Comment on above: med error Start: 03-02-2022 End: 03-02-2022 Patient encounter procedure Beena Whitfield PA-C Work Phone: [facility] Comment on above: Essential hypertensi on (Primary Dx); Mixed hyperlipidemia; Type 2 diabetes mellitus with diabetic neuropathy, without long-term current use of insulin (HCC); Polyneuropathy associated with underlying disease (HCC); Myasthenia gravis (HCC); Fibromyalgia; Anxiety with depression; Recurrent major depressive disorder, in partial remission (HCC); Other allergic rhinitis; Chronic pain of both shoulders; Chronic hand pain, unspecified laterality; Need for influenza vaccination; Need for COVID-19 vaccine; Chronic asthmatic bronchitis (HCC) Start: 01-27-2022 Refill Beena Sergiosarbjit Hinkle on PA-C Work Phone: [facility] Comment on above: Refill Request Start: 01-06-2022 End: 01-06-2022 Distance Health Beena Whitfield PA-C Work Phone: [facility] Comment on above: Essential hypertensi on (Primary Dx); Mixed hyperlipidemia; Type 2 diabetes mellitus with diabetic neuropathy, without long-term current use of insulin (HCC); Polyneuropathy associated with underlying disease (HCC); Myasthenia gravis (HCC); Fibromyalgia; Chronic asthmatic bronchitis (HCC); Anxiety with depression; Recurrent major depressive disorder, in partial remission (HCC) Missed VV Start: 01-01-2022 Telephone encounter Beena Whitfield PA-C Work Phone: [facility] Comment on above: Medication Request Start: 11-26-2021 ambulatory Beena Sergio Hinkle on PA-C Work Phone: [facility] Start: 11-19-2021 Refill Beena Hinkle on PA-C Work Phone: [facility] [place] Comment on above: Refill Request Start: 11-13-2021 Refill Beena Hinkle on PA-C Work Phone: [facility] Comment on above: Refill Request Start: 10-27-2021 Refill Beena Hinkle on PA-C Work Phone: [facility] Comment on above: Refill Request Start: 10-07-2021 End: 10-07-2021 Patient encounter procedure Beena Whitfield PA-C Work Phone: [facility] Comment on above: Essential hypertensi on (Primary Dx); Mixed hyperlipidemia; Type 2 diabetes mellitus with diabetic neuropathy, without long-term current use of insulin (HCC); Myasthenia gravis (HCC); Anxiety with depression; Chronic diarrhea; Chronic asthmatic bronchitis (HCC); Chronic pain of both shoulders; Chronic hand pain, unspecified laterality; Fibromyalgia; Migraine with aura, not intractable, without status migrainosus; Gastroesophageal reflux disease, unspecified whether esophagitis present; Polyneuropathy associated with underlying disease (HCC); Medicare annual wellness visit, subsequent; Other allergic rhinitis; Vitamin D deficiency; Allergic conjunctivitis of both eyes; Abnormality of gait; Falling episodes; Need for COVID-19 vaccine Start: 09-11-2021 ambulatory Beena camp [employer] Work Phone: [facility] Comment on above: Cough Refill Request; Refi ll Request Start: 08-29-2021 Refill Beena camp [employer] Work Phone: [facility] Comment on above: Prescription Refills Start: 07-03-2021 Telephone encounter Beena TIRADOCellmemore Work Phone: [facility] Comment on above: Appointment Procedures Date Procedure Procedure Detail Performing Clinician Start: 07-13-2023 INFLUENZA VACCINE, P RSV FREE, AGE 65+ YR, HIGH DOSE, QUADRIVALENT (FLUZONE HIGH-DOSE) Beena TIRADOCellmemore Work Phone: Start: 07-13-2023 PFIZER-BIONTECH COVI D-19 VACCINE ( SEASON) AGE 12+ YR Beena TIRADOCellmemore Work Phone: Start: 03-10-2023 Dxa bone density anabel dy 1/> sites axial skel Beena TIRADOCellmemore Work Phone: Start: 03-02-2022 INFLUENZA SEASONAL QUADRIVALENT HIGH DOSE AGE 65+ M Sergio TIRADOCellmemore Work Phone: Start: 03-02-2022 PFIZER-BIONTECH COVI D-19 BIVALENT BOOSTER VACCINE, AGE 12+ YR Beena TIRADOCellmemore Work Phone: Start: 10-07-2021 PFIZER-BIONTAquaporin COVI D-19 VACCINE, AGE 12+ YR ([place] TOP) Beena Whitfield PA-C Work Phone: Plan of Treatment Date Care Activity Detail Author Start: 07-13-2024 Annual PCP Team Chronic Disease Visit Annual PCP Team Chronic Disease Visit [facility] Start: 03-10-2024 Glaucoma screening Dilated Retinal Exam [facility] Start: 03-10-2024 Hepatitis C antibody, confirmatory test Dilated Retinal Exam [facility] Start: 03-10-2024 End: 03-10-2024 Patient encounter procedure 03/10/2024 10:00 AM EDT Office Visit [facility] [address] [place], [place] [id number] Rosmery Conley, OD [address] [place] [address] 1 yr follow up with [facility] Comment on above: 1 yr follow up with [facility] Start: 03-02-2024 Annual PCP Team Chronic Disease Visit Annual PCP Team Chronic Disease Visit [facility] Start: 12-02-2023 ANNUAL PCP TEAM CHRONIC DISEASE VISIT ANNUAL PCP TEAM CHRONIC DISEASE VISIT [facility] Start: 12-02-2023 BP CONTROLLED (<130/80) BP CONTROLLED (<130/80) [facility] Start: 11-11-2023 Covid-19 Vaccine ( season) Covid-19 Vaccine () [facility] Start: 11-09-2023 End: 11-09-2023 Patient encounter procedure 11/09/2023 10:20 AM EDT Office Visit [facility] [address] [place], [place] [id number] Beena Whitfield PA-C [address] [place], [place] [id number] 3 month follow up. Discuss need for wheelchair. Insurance requires [id number] [facility] Comment on above: 3 month follow up. Discuss need for whee lchair. Insurance requires [id number] Start: 10-11-2023 End: 01-10-2024 CBC W Auto Differential panel - Blood CBC + DIFF Lab Routine Myasthenia gravis (HCC) Recurrent major depressive disorder, in partial remission (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, without long-term current use of insulin (HCC) Expected: 10/11/2023, Expires: 01/10/2024 [facility] Work Phone: Comment on above: Expected: 10/11/2023, Expires: Start: 10-11-2023 End: 01-10-2024 Comprehensive metabolic 2000 panel - Serum or Plasma COMP METABOLIC PANEL Lab Routine Myasthenia gravis (HCC) Recurrent major depressive disorder, in partial remission (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, without long-term current use of insulin (HCC) Expected: 10/11/2023, Expires: 01/10/2024 [facility] Work Phone: Comment on above: Expected: 10/11/2023, Expires: Start: 10-11-2023 End: 01-10-2024 Hemoglobin A1c in Blood HGB A1C Lab Routine Type 2 diabetes mellitus with diabetic neuropathy, without long-term current use of insulin ([facility]) Expected: 10/11/2023, Expires: 01/10/2024 [facility] Work Phone: Comment on above: Expected: 10/11/2023, Expires: 4 Start: 10-11-2023 End: 01-10-2024 Thyrotropin [Units/volume] in Serum or Plasma TSH BLD Lab Routine Age-related physical debility Fatigue, unspecified type Expected: 10/11/2023, Expires: 01/10/2024 [facility] Work Phone: Comment on above: Expected: 10/11/2023, Expires: Start: 10-11-2023 End: 10-11-2023 Patient encounter procedure 10/11/2023 11:20 AM EDT Office Visit [facility] [address] [place] [address] Beena Whitfield PA-C [address] [facility] [place] [address] 3 month follow up [facility] Comment on above: 3 month follow up Start: 09-04-2023 ANNUAL PCP TEAM CHRONIC DISEASE VISIT ANNUAL PCP TEAM CHRONIC DISEASE VISIT [facility] Start: 06-05-2023 3 comp foot exam completed DIABETIC FOOT EXAM [facility] Start: 06-05-2023 ANNUAL PCP TEAM CHRONIC DISEASE VISIT ANNUAL PCP TEAM CHRONIC DISEASE VISIT [facility] Start: 06-05-2023 BP CONTROLLED (<130/80) BP CONTROLLED (<130/80) [facility] Start: 06-05-2023 Diabetic foot examination Diabetic Foot Exam [facility] Start: 06-05-2023 Hepatitis B screening URINE ALBUMIN:CREATININE RATIO [facility] Start: 06-05-2023 Hepatitis B surface antibody level LDL CHOLESTEROL [facility] Start: 06-03-2023 End: 08-03-2023 Hemoglobin A1c in Blood HGB A1C Lab Routine Type 2 diabetes mellitus with diabetic neuropathy, without long-term current use of insulin (HCC) Expected: 06/03/2023, Expires: 08/03/2023 [facility] Work Phone: Comment on above: Expected: 06/03/2023, Expires: Start: 06-03-2023 Hemoglobin A1c measurement HbA1C [facility] Start: 06-03-2023 Hemoglobin A1c/Hemoglobin.total in Blood HBA1C [facility] Start: 06-02-2023 End: 08-02-2023 25-hydroxyvitamin D3 [Mass/volume] in Serum or Plasma VITAMIN D 25 HYDROXY Lab Routine Vitamin D deficiency Expected: 06/02/2023, Expires: 08/02/2023 [facility] Work Phone: Comment on above: Expected: 06/02/2023, Expires: Start: 06-02-2023 End: 08-02-2023 CBC W Auto Differential panel - Blood CBC + DIFF Lab Routine Essential hypertension Type 2 diabetes mellitus with diabetic neuropathy, without long-term current use of insulin (HCC) Anxiety with depression Recurrent major depressive disorder, in partial remission (HCC) Expected: 06/02/2023, Expires: 08/02/2023 [facility] Work Phone: Comment on above: Expected: 06/02/2023, Expires: 4 Start: 06-02-2023 End: 08-02-2023 Comprehensive metabolic 2000 panel - Serum or Plasma COMP METABOLIC PANEL Lab Routine Essential hypertension Type 2 diabetes mellitus with diabetic neuropathy, without long-term current use of insulin (HCC) Anxiety with depression Recurrent major depressive disorder, in partial remission ([facility]) Expected: 06/02/2023, Expires: 08/02/2023 [facility] Work Phone: Comment on above: Expected: 06/02/2023, Expires: Start: 06-02-2023 End: 08-02-2023 Hemoglobin A1c in Blood HGB A1C Lab Routine Type 2 diabetes mellitus with diabetic neuropathy, without long-term current use of insulin (HCC) Expected: 06/02/2023, Expires: 08/02/2023 [facility] Work Phone: Comment on above: Expected: 06/02/2023, Expires: 4 Start: 06-02-2023 End: 08-02-2023 Lipid 1996 panel - Serum or Plasma LIPID PANEL BASIC Lab Routine Mixed hyperlipidemia Expected: 06/02/2023, Expires: 08/02/2023 [facility] Work Phone: Comment on above: Expected: 06/02/2023, Expires: Start: 05-24-2023 Advance Directive Discussion Advance Directive Discussion [facility] Start: 03-02-2023 ANNUAL PCP TEAM CHRONIC DISEASE VISIT ANNUAL PCP TEAM CHRONIC DISEASE VISIT [facility] Start: 03-02-2023 BP CONTROLLED (<130/80) BP CONTROLLED (<130/80) [facility] Start: 01-22-2023 Covid-19 Vaccine () Covid-19 Vaccine () [facility] Start: 01-22-2023 Influenza vaccination [facility] Start: 01-06-2023 ANNUAL PCP TEAM CHRONIC DISEASE VISIT ANNUAL PCP TEAM CHRONIC DISEASE VISIT [facility] Start: 12-03-2022 End: 02-02-2023 Creatine kinase [Enzymatic activity/volume] in Serum or Plasma CK CREATINE KINASE Lab Routine Mixed hyperlipidemia Expected: 12/03/2022, Expires: 02/02/2023 [facility] Work Phone: Comment on above: Expected: 12/03/2022, Expires: 3 Start: 12-03-2022 End: 02-02-2023 Hemoglobin A1c in Blood HGB A1C Lab Routine Type 2 diabetes mellitus with diabetic neuropathy, without long-term current use of insulin ([facility]) Expected: 12/03/2022, Expires: 02/02/2023 [facility] Work Phone: Comment on above: Expected: 12/03/2022, Expires: 3 Start: 12-03-2022 Hemoglobin A1c/Hemoglobin.total in Blood HBA1C [facility] Start: 12-01-2022 End: 01-31-2023 25-hydroxyvitamin D3 [Mass/volume] in Serum or Plasma VITAMIN D 25 HYDROXY Lab Routine Vitamin D deficiency Asymptomatic postmenopausal status Expected: 12/01/2022, Expires: 01/31/2023 [facility] Work Phone: Comment on above: Expected: 12/01/2022, Expires: 3 Start: 12-01-2022 End: 01-31-2023 CBC W Auto Differential panel - Blood CBC + DIFF Lab Routine Essential hypertension Gastroesophageal reflux disease, unspecified whether esophagitis present Anxiety with depression Thrombocytosis Neutrophilia Expected: 12/01/2022, Expires: 01/31/2023 [facility] Work Phone: Comment on above: Expected: 12/01/2022, Expires: 3 Start: 12-01-2022 End: 01-31-2023 Comprehensive metabolic 2000 panel - Serum or Plasma COMP METABOLIC PANEL Lab Routine Essential hypertension Type 2 diabetes mellitus with diabetic neuropathy, without long-term current use of insulin (HCC) Gastroesophageal reflux disease, unspecified whether esophagitis present Anxiety with depression Vitamin D deficiency Expected: 12/01/2022, Expires: 01/31/2023 [facility] Work Phone: Comment on above: Expected: 12/01/2022, Expires: 3 Start: 11-27-2022 ANNUAL PCP TEAM CHRONIC DISEASE VISIT ANNUAL PCP TEAM CHRONIC DISEASE VISIT [facility] Start: 11-27-2022 BP CONTROLLED (<130/80) BP CONTROLLED (<130/80) [facility] Start: 10-07-2022 ANNUAL PCP TEAM CHRONIC DISEASE VISIT ANNUAL PCP TEAM CHRONIC DISEASE VISIT [facility] Start: 10-07-2022 BP CONTROLLED (<130/80) BP CONTROLLED (<130/80) [facility] Start: 10-07-2022 SHINGRIX VACCINE (1 of 2) SHINGRIX VACCINE (1 of 2) [facility] Comment on above: Postponed from 1997 (Insurance Cov erage) Start: 10-07-2022 Urine microalbumin profile DTAP,TDAP,TD (1 - Tdap) [facility] Comment on above: Postponed from 1966 (Insurance Cov erage) Start: 09-25-2022 COLORECTAL CANCER SCREENING COLORECTAL CANCER SCREENING [facility] Start: 09-25-2022 FECAL OCCULT BLOOD FECAL OCCULT BLOOD [facility] Start: 09-03-2022 End: 11-03-2022 CBC W Auto Differential panel - Blood CBC + DIFF Lab Routine Essential hypertension Recurrent major depressive disorder, in partial remission (HCC) Anxiety with depression Expected: 09/03/2022, Expires: 11/03/2022 [facility] Work Phone: Comment on above: Expected: 09/03/2022, Expires: 3 Start: 09-03-2022 End: 11-03-2022 Comprehensive metabolic 2000 panel - Serum or Plasma COMP METABOLIC PANEL Lab Routine Essential hypertension Mixed hyperlipidemia Gastroesophageal reflux disease, unspecified whether esophagitis present Recurrent major depressive disorder, in partial remission (HCC) Anxiety with depression Expected: 09/03/2022, Expires: 11/03/2022 [facility] Work Phone: Comment on above: Expected: 09/03/2022, Expires: 3 Start: 09-03-2022 End: 11-03-2022 Lipid 1996 panel - Serum or Plasma LIPID PANEL BASIC Lab Routine Mixed hyperlipidemia Gastroesophageal reflux disease, unspecified whether esophagitis present Expected: 09/03/2022, Expires: 11/03/2022 [facility] Work Phone: Comment on above: Expected: 09/03/2022, Expires: 3 Start: 07-03-2022 ANNUAL PCP TEAM CHRONIC DISEASE VISIT ANNUAL PCP TEAM CHRONIC DISEASE VISIT [facility] Start: 07-03-2022 BP CONTROLLED (<130/80) BP CONTROLLED (<130/80) [facility] Start: 07-03-2022 COVID-19 VACCINE (5 - Pfizer series) COVID-19 VACCINE (5 - Pfizer series) [facility] Start: 06-05-2022 End: 08-05-2022 Hemoglobin A1c in Blood [facility] Work Phone: Comment on above: Expected: 06/05/2022, Expires: 3 Start: 06-02-2022 End: 08-02-2022 CBC W Auto Differential panel - Blood CBC + DIFF Lab Routine Essential hypertension Expected: 06/02/2022, Expires: 08/02/2022 [facility] Work Phone: Comment on above: Expected: 06/02/2022, Expires: 3 Start: 06-02-2022 End: 08-02-2022 Comprehensive metabolic 2000 panel - Serum or Plasma COMP METABOLIC PANEL Lab Routine Essential hypertension Expected: 06/02/2022, Expires: 08/02/2022 [facility] Work Phone: Comment on above: Expected: 06/02/2022, Expires: 3 Start: 06-02-2022 End: 08-02-2022 Lipid 1996 panel - Serum or Plasma LIPID PANEL BASIC Lab Routine Mixed hyperlipidemia Expected: 06/02/2022, Expires: 08/02/2022 [facility] Work Phone: Comment on above: Expected: 06/02/2022, Expires: 3 Start: 05-24-2022 ADVANCE DIRECTIVE DISCUSSION ADVANCE DIRECTIVE DISCUSSION [facility] Start: 03-29-2022 Hemoglobin A1c/Hemoglobin.total in Blood HBA1C [facility] Start: 03-25-2022 Hepatitis C antibody, confirmatory test DILATED RETINAL EXAM [facility] Start: 02-07-2022 COVID-19 VACCINE (4 - Booster for Pfizer series) COVID-19 VACCINE (4 - Booster for Pfizer series) [facility] Start: 01-22-2022 Influenza vaccination INFLUENZA (#1) [facility] Start: 12-21-2021 Hepatitis B screening URINE ALBUMIN:CREATININE RATIO [facility] Start: 12-21-2021 Hepatitis B surface antibody level LDL CHOLESTEROL [facility] Start: 12-20-2021 3 comp foot exam completed DIABETIC FOOT EXAM [facility] Start: 10-07-2021 End: 12-07-2021 ALBUMIN/CREAT RATIO RND UR ALBUMIN/CREAT RATIO RND UR Lab Routine Type 2 diabetes mellitus with diabetic neuropathy, without long-term current use of insulin (HCC) Expected: 10/07/2021, Expires: 12/07/2021 [facility] Work Phone: Comment on above: Expected: 10/07/2021, Expires: 2 Start: 10-07-2021 End: 12-07-2021 Magnesium [Mass/volume] in Serum or Plasma [facility] Work Phone: Comment on above: Expected: 10/07/2021, Expires: 2 Start: 10-07-2021 End: 12-07-2021 VITAMIN D 25 HYDROXY [facility] Work Phone: Comment on above: Expected: 10/07/2021, Expires: 2 Start: 06-23-2021 Hemoglobin A1c/Hemoglobin.total in Blood HBA1C [facility] Start: 06-16-2021 COVID-19 VACCINE (3 - Booster for Pfizer series) COVID-19 VACCINE (3 - Booster for Pfizer series) [facility] Start: 05-24-2021 ADVANCE DIRECTIVE DISCUSSION ADVANCE DIRECTIVE DISCUSSION [facility] Start: 12-18-2020 COLORECTAL CANCER SCREENING COLORECTAL CANCER SCREENING [facility] Start: 12-18-2020 FECAL OCCULT BLOOD FECAL OCCULT BLOOD [facility] Start: 2012 PNEUMOVAX AGE 65 AND OVER WITH 5YR LOOKBACK (#1) PNEUMOVAX AGE 65 AND OVER WITH 5YR LOOKBACK (#1) [facility] Start: 2007 Hepatitis B Vaccine (1 of 3 - Risk 3-dose series) Hepatitis B Vaccine (1 of 3 - Risk 3-dose series) [facility] Start: 2007 RSV Vaccine (1 - 1-dose 60+ series) RSV Vaccine (1 - 1-dose 60+ series) [facility] Start: 1997 SHINGRIX VACCINE (1 of 2) SHINGRIX VACCINE (1 of 2) [facility] Start: 1992 COLOGUARD (FIT-DNA) COLOGUARD (FIT-DNA) [facility] Start: 1992 Colonoscopy COLONOSCOPY [facility] Start: [address] COLONOGRAPHY [facility] Start: 1992 SIGMOIDOSCOPY SIGMOIDOSCOPY [facility] Start: 1987 Mammography MAMMOGRAM [facility] Start: 1966 Urine microalbumin profile [facility] Start: 1965 BP CONTROLLED (<130/80) BP CONTROLLED (<130/80) [facility] Start: 1965 HEPATITIS C SCREENING HEPATITIS C SCREENING [facility] Start: 1953 PNEUMOCOCCAL: 65+ (1 - PCV) PNEUMOCOCCAL: 65+ (1 - PCV) [facility] End: 12-31-2023 DXA-AXIAL SKELETON DXA-AXIAL SKELETON Radiology Routine Vitamin D deficiency Asymptomatic postmenopausal status 1 Occurrences starting 12/01/2022 until 12/31/2023 [facility] Work Phone: Comment on above: 1 Occurrences starting 12/01/2022 until 12/31/2023 End: 03-31-2024 DXA-AXIAL SKELETON DXA-AXIAL SKELETON Radiology Routine Asymptomatic postmenopausal status 1 Occurrences starting 03/02/2023 until 03/31/2024 [facility] Work Phone: Comment on above: 1 Occurrences starting 03/02/2023 until 03/31/2024 Hemoglobin.gastroint es tinal.lower [Presence] in Stool by Immunoassay FECAL OCCULT BLOOD TEST Lab Routine Screening for colon cancer Ordered: 12/01/2022 [facility] Work Phone: Comment on above: Ordered: 12/01/2022 End: 12-26-2022 Screening mammography bi 2-view breast inc cad EBONY SCREENING Radiology Routine Encounter for screening mammogram for breast cancer 1 Occurrences starting 11/26/2021 until 12/26/2022 [facility] Work Phone: Comment on above: 1 Occurrences starting 11/26/2021 until 12/26/2022 [facility] Immunizations Immunization Date Immunization Notes Care Provider Milena helms 07-13-2023 COVID-19 vaccine, ag e 12+ yr, 2022- season (PercuVision) NA Whitfield PA-C Work Phone: [facility] 07-13-2023 influenza (HD-IIV4) vaccine, age 65+ yr, high dose, quadrivalent, PF (FLUZONE HIGH-DOSE) NA Whitfield PA-C Work Phone: [facility] 12-01-2022 pneumococcal (PCV20) vaccine, 20 valent (PREVNAR 20) NA Catarizm PA-C Work Phone: [facility] 12-01-2022 pneumococcal Conjuga te, unspecified formulation NA Whitfield PA-C Work Phone: [facility] Work Phone: 03-02-2022 COVID-19 booster vaccine, age 12+ yr, bivalent (ImmunoCellular TherapeuticsBIONTECH) NA Whitfield PA-C Work Phone: [facility] 03-02-2022 influenza, high-dose , quadrivalent vaccine (FLUZONE HIGH DOSE QUADRIVALENT) NA Whitfield PA-C Work Phone: [facility] 03-02-2022 influenza virus vaccine, unspecified formulation NA Whitfield PA-C Work Phone: [facility] 10-07-2021 COVID-19 vaccine, ag e 12+ yr (PFIZER-BIONTECH - BAILEY TOP) NA Whitfield PA-C Work Phone: [facility] 04-01-2021 influenza, high-dose , quadrivalent vaccine (FLUZONE HIGH DOSE QUADRIVALENT) NA Whitfield PA-C Work Phone: [facility] 01-14-2021 COVID-19 vaccine, ag e 12+ yr (PFIZER-BIONTECH - PURPLE TOP) NA Whitfield PA-C Work Phone: [facility] 12-20-2020 COVID-19 vaccine, ag e 12+ yr (PFIZER-BIONTECH - PURPLE TOP) NA Whitfield PA-C Work Phone: [facility] 03-28-2020 influenza, high dose seasonal, preservative-free NA Whitfield PA-C Work Phone: [facility] 03-28-2020 influenza, injectabl e, quadrivalent, preservative free NA Whitfield PA-C Work Phone: [facility] 02-24-2019 influenza, high dose seasonal, preservative-free NA Whitfield PA-C Work Phone: [facility] Work Phone: 03-24-2000 influenza, seasonal, injectable NA Whitfield PA-C Work Phone: [facility] 03-24-1998 pneumococcal vaccine , unspecified formulation NA Whitfield PA-C Work Phone: [facility] Payers Date Payer Category Payer Unknown [id number] 2024 Unknown [id number] 2023 Medicare [id number] 2023 Self-pay 2023 Unknown [id number] 2021 Medicare MMO MEDICARE M[place] [facility] [id number] 2021-Present [phone] [address] [place] [address] [facility] [id number] 2021 Medicare MMO MEDICARE MMO MEDADVANTAGE HMO [id number] 2021-Present [phone] [address] [place] [address] O [id number] 2021 Unknown [id number] Unknown AARP [id number] Unknown [id number] Unknown [id number] Unknown [id number] Unknown [id number] Unknown [id number] Unknown [id number] Unknown [id number] Unknown [id number] Unknown [id number] Unknown [id number] Unknown [id number] Unknown [id number] Unknown [id number] Unknown [id number] Social History Date Type Detail Facility Start: 12-05-2018 End: 10-22-2023 Tobacco smoking status NHIS Ex-smoker [facility] Work Phone: Start: 12-05-2018 End: 03-02-2022 Tobacco use and exposure Smokeless tobacco non-user [facility] Work Phone: Start: 1945 Sex Assigned At Not on file [facility] Start: 09-27-2021 End: 03-02-2022 Exposure to SARS-CoV-2 (event) Not sure [facility] History of tobacco use Current smoker [facility] Work Phone: Start: 12-22-2021 End: 01-01-2022 Exposure to SARS-CoV-2 (event) Yes [facility] Start: 01-06-2022 History SDOH Alcohol Frequency 1 [facility] Start: 01-06-2022 History SDOH Alcohol Std Drinks 0 [facility] Start: 01-06-2022 History SDOH Social Connections Phone 5 [facility] Start: 01-06-2022 History SDOH Social Connections Get Together 2 [facility] Start: 01-06-2022 History SDOH Social Connections Living 4 [facility] Start: 01-05-2022 End: 12-01-2022 [facility] Start: 01-05-2022 End: 12-01-2022 Social connection and isolation panel [facility] Do you belong to any clubs or organizations such as temple groups, unions, fraternal or athletic groups, or school groups? No [facility] Are you now , , , , never or living with a partner? [facility] How often to you hav e a drink containing alcohol? Never [facility] How many standard dr inks containing alcohol do you have on a typical day? Patient does not drink [facility] (I/We) worried laury er (my/our) food would run out before (I/we) got money to buy more. Never true [facility] Start: 08-31-2024 End: 09-19-2024 Sex Female (finding) [facility] Start: 1945 Sex Assigned At Female W [facility] Clinical Notes 07-03-2021 to 10-28-2023 Telephone Encounter - Rebecca Blanco MA - 10/19/2023 4:51 PM EDTTelephone Encounter - Rebecca Blanco MA - 10/19/2023 4:51 PM EDTTelephone Encounter - Mynor Hampton MD - 10/19/2023 4:33 PM EDT Note Date & Type Note Facility 10-28-2023 Note [facility] Medical Records Department [address] [place] [address] Discharge Summary 10/28/23 1452 MR#: [id number] Acct: [id number] Name: GRACE RUSH Rep #: [id number] : 1945 78 From: Jesus Landers MD PCP: DAT Dale Status:ADM IN Location: [place] [id number] Providers Date of Admission: 10/23/23 Date of Discharge: 10/29/23 Primary Care Physician: DAT Dale Reason For Visit: UTI Diagnosis Discharge Diagnosis (1) History of myasthenia gravis: Status: Acute Code(s): Z86.69 - Personal history of other diseases of the nervous system and sense organs (2) Hypertensive urgency: Status: Acute Code(s): I16.0 - Hypertensive urgency (3) Weakness: Status: Acute Code(s): R53.1 - Weakness (4) UTI (urinary tract infection): Status: Acute Code(s): N39.0 - Urinary tract infection, site not specified Qualifiers: Hematuria presence: without hematuria Urinary tract infection type: acute cystitis Q ualified Code(s): N30.00 - Acute cystitis without hematuria Plan Patient is a 78-year-old lady with history of myasthenia gravis who presented with progressive generalized weakness as well as difficulty with ambulation. Patient was found to have acute cystitis admitted to regular nursing floor for further management 1. Acute cystitis with Klebsiella ??? Admitted to regular nursing floor urine and blood cultures were sent. Urine cultures came back positive for Klebsiella patient has been treated appropriately ??? 10/26/2023; WBC count within normal limits patient remains afebrile 2. Acute on chronic debility in the context of myasthenia gravis crisis Continued with pyridostigmine 60 mg 3 times daily 3. Acute hypertensive urgency ??? Patient is on lisinopril did continue home dose added hydralazine as needed as well as scheduled amlodipine ??? 10/26/2023; patient blood pressure control improved with addition of amlodipine 4. Chronic pain syndrome -patient is on Joice at home did continue 5. Chronic migraine without aura ??? Patient assisted with sumatriptan 6. GERD ??? Patient is on PPI 7. Depression with anxiety ??? Patient is on sertraline 8. COPD ??? With acute exacerbation did continue patient home meds 9. Physical deconditioning - Requested for PT OT eval and social media director to assist with discharge planning 10/26/2021 before discharging to assisted facility pending 10. DVT prophylaxis - On enoxaparin Time spent in the patient's overall evaluation,decision-making process, review of diagnostic data, adjustment of management, discussion with other providers, nursing nursing and ancillary staff involved in patient's care documentation, 35 Minutes Medications at Discharge Home Medications lisinopril 20 mg tablet 20 mg PO DAILY 05/04/19 loratadine 5 mg-pseudoephedrine ER 120 mg tablet,extended release,12hr 1 ea PO BID 05/04/19 montelukast 10 mg tablet 10 mg PO DAILY 05/04/19 sertraline 100 mg tablet 100 mg PO DAILY 05/04/19 albuterol sulfate 90 mcg/actuation aerosol inhaler 2 puff inhalation Q4H PRN 10/22/23 budesonide-formoterol HFA 80 mcg-4.5 mcg/actuation aerosol inhaler 2 puff inhalation BID 10/22/23 estradiol 0.5 mg tablet 0.5 mg PO DAILY 10/22/23 omeprazole 20 mg capsule,delayed release 20 mg PO BID 10/22/23 pyridostigmine bromide 60 mg tablet 60 mg PO TID PRN 10/22/23 sumatriptan succinate 100 mg tablet 100 mg PO PRN 10/22/23 cholecalciferol (vitamin D3) 25 mcg (1,000 unit) capsule (Vitamin D3) 6,000 unit PO DAILY supplement 10/26/23 amlodipine 10 mg tablet 10 mg PO DAILY #0 tabs 10/27/23 cefdinir 300 mg capsule 300 mg PO BID #6 caps 10/27/23 hydrocodone-acetaminophen 5-325mg 5mg-325mg 1 tab PO Q6H PRN PRN Pain 5-10 Or Fever > 100.7 F 2 days #8 tabs 10/27/23 loperamide 2 mg capsule 2 mg PO DAILY PRN PRN DIARRHEA #0 caps 10/27/23 melatonin 3 mg tablet 3 mg PO QHS PRN PRN Insomnia #0 tabs 10/27/23 Physical Exam Narrative GENERAL: cooperative HEENT: Atraumatic; normocephalic EYES; Anicteric, Normal Conjunctiva NECK; supple, normal thyroid, RESPIRATORY: Diminished to auscultation CARDIOVASCULAR: Regular S1 S2, GI: soft, normoactive bowel sounds, : No Renal angle tenderness; EXTREMITIES: No edema, no clubbing, MUSCULOSKELETAL: no muscle wasting NEURO: Awake; no lateralizing signs. SKIN: No Rash PSYCH; Flat affect Weight / BMI Weight Weight: 72.4 kg Body Mass Index (BMI) 28.3 ABG / Lab / Microbiology Data 10/28/23 06:32 10/28/23 06:32 Laboratory: Laboratory Results - last 24 hr 10/27/23 16:31: POC Glucose 137 H 10/28/23 06:29: POC Glucose 135 H 10/28/23 06:32: WBC 9.8, RBC 4.59, Hgb 12.6, Hct 41.5, MCV 90.4, MCH 27.5, MCHC 30.4 L, RDW Std Deviation 47.6 H, RDW Coeff of Meir 14.4, Plt Count 438, MPV 10.5, Immature Gran % (Auto) 0.400, Neut % (Auto) 69.5, Lymph % (Auto) (more content not included)... [facility] 10-19-2023 Telephone encounter Note Spoke with patient and given provider message. She states that she has a caregiver to help her today. If anything, she will go tomorrow, refusing to go today. Rebecca Blanco MA October 19, 2023 4:58 PM [facility] 10-19-2023 Miscellaneous Notes Spoke with patient and given provider message. She states that she has a caregiver to help her today. If anything, she will go tomorrow, refusing to go today. Rebecca Blanco MA October 19, 2023 4:58 PM Hard to tell. If unable to be ambulate or care for self, to JAQUI escobedo. Sw unsure as to the likelihood of [facility] admitting patient regarding below. Sw will defer message to DAT Cladera for his input on below. Pt calling in stating that she is bedridden and is unable to walk. States on 10/10 she got diarrhea really bad and after that has no longer been able to get up and walk. States she can't even roll over in bed or sit up in bed without help. She states last time she saw Werner, he mentioned to her that if she went into the ER, they would admit her and evaluate her and be able to get her into a rehab unit. Pt states when she got bad on the , her family wanted to take her to the ER then but pt did not want to go. She states she has agreed to go so her family is taking her in tomorrow to the ER. Pt thought Werner Whitfield would still be able to take care of her while she is in the hospital. Explained that the hospital providers would take over her care. Pt verbalized understanding. Attempted to get a hold of social science manager as it appears she was trying to call pt back. Pt will keep her phone on and with her. Sw received message from patient requesting call back. Sw called patient back and phone rings with Seesmicdental office assistant coming on. No answer to call. Sw will try call another time. documented in this encounter [facility] 10-19-2023 Telephone encounter Note Hard to tell. If unable to be ambulate or care for self, to JAQUI escobedo. [facility] 10-19-2023 Telephone encounter Note Sw unsure as to the likelihood of [facility] admitting patient regarding below. Sw will defer message to DAT Caldera for his input on below. [facility] 10-19-2023 Telephone encounter Note Pt calling in stating that she is bedridden and is unable to walk. States on 10/10 she got diarrhea really bad and after that has no longer been able to get up and walk. States she can't even roll over in bed or sit up in bed without help. She states last time she saw Werner, he mentioned to her that if she went into the ER, they would admit her and evaluate her and be able to get her into a rehab unit. Pt states when she got bad on the , her family wanted to take her to the ER then but pt did not want to go. She states she has agreed to go so her family is taking her in tomorrow to the ER. Pt thought Werner Whitfield would still be able to take care of her while she is in the hospital. Explained that the hospital providers would take over her care. Pt verbalized understanding. Attempted to get a hold of social science manager as it appears she was trying to call pt back. Pt will keep her phone on and with her. [facility] 10-19-2023 Telephone encounter Note Sw received message from patient requesting call back. Sw called patient back and phone rings with Seesmicdental office assistant coming on. No answer to call. Sw will try call another time. [facility] 10-04-2023 Miscellaneous Notes Pt calls to request order for wheelchair be faxed to [facility] @ [phone]. Order and pt information faxed as requested. Pt also reports [facility] phone #[phone]. Jaquelin Ledbetter LPN documented in this encounter [facility] 10-04-2023 Telephone encounter Note Pt calls to request order for wheelchair be faxed to [facility] @ [phone]. Order and pt information faxed as requested. Pt also reports [facility] phone #[phone]. Jaquelin Ledbetter LPN [facility] 09-10-2023 Miscellaneous Notes Patient has been identified by name and date of : Yes, Patient phones for refill(s): Requested Prescriptions Pending Prescriptions Disp Refills montelukast (SINGULAIR) 10 mg tablet 90 tablet 3 Sig: Take 1 tablet by mouth daily at bedtime. omeprazole (PRILOSEC) 20 mg capsule 180 capsule 1 Sig: Take 1 capsule by mouth two times a day. Date of last office visit in primary care: 07/13/2023 Date of next office visit in primary care: 10/11/2023 Please advise. Thank you. Hanane Roblero. documented in this encounter [facility] 08-10-2023 Miscellaneous Notes Closing encounter. Once patient is able to find out can print out order for wheelchair. Spoke with patient to update. Has yet to find out. States will call tomorrow. Telephone on 07/28/23 STANDARD WHEELCHAIR Thanks, Werner Whitfield PA-C Patient calling she lost the order for the standard wheel chair. Patient is going to call her insurance to see which DME is covered and call back with name and fax number. Please advise documented in this encounter [facility] 08-03-2023 Miscellaneous Notes Sw spoke with patient and provided [facility], [facility], [facility], and [facility] contact information. Sw told patient that patient insurance stated that home care aids by their self, are not available through patient insurance. Only available with conjunction of assisted/PT/OT. Patient reports that she will reach out to above agencies and will start with [facility] to see about resources they may have for assistance.Patient notes that she will compare cost and hour availability. Patient thanked Sw for call back and resources. Sw tried call to patient to discuss below information. Sw left message that Sw will try call again to patient this afternoon 08/02 @2pm. Sw called [facility] insurance. Patient insurance notes that home rental boats caretaker is only available through patient insurance if patient has also a assisted/PT/OT need. The only other home care program available is for someone with a serious health condition that also needs assisted assistance. There are no other home care assistance options available under patient insurance. Sw will compile self pay home care agency options and respite care SNF provider options in the area. Sw will follow up with patient tomorrow 08/03/23 in regards to this information. Sw tried call to [facility] and phone call would not go through. Sw will try call again on 08/02/23. Patient and Sw discussed home rental boats caretaker agency. Patient notes that her insurance told her that they would cover a home rental boats caretaker. Patient reports that she would need home rental boats caretaker from 08/17-08/31. Laine notes that her caregivers are going out of town on a cruise and she needs someone to assist her when they are gone. Need to check and see if a home rental boats caretaker agency is accepted by patient insurance. Sw notes that she will have to call patient insurance to see about a listing of home rental boats caretaker agencies that are in network with patient insurance. [phone] [facility] [phone]-uuziu number Sw noted to patient that she would see about home rental boats caretaker agency names in network with insurance. Sw noted that she would call patient back on Wednesday next week to update her on what Sw has found out. Patient calling needs some help, her caregiver is going on a cruise later this month. Patient needs to find some help at home, she is not sure how to go about doing that. She had wrong phone number listed on her chart, now have correct one. documented in this encounter [facility] 07-21-2023 Miscellaneous Notes Sw called patient and left message to have call returned to discuss community social service/medicare questions. Sw tried call again to patient and received message jessenia to [employer] your call cannot be completed as dialed. Tried call again and received same message. Adelaide tried call to patient and received messageall circuits are busy now, please try call again later. Sw left message for patient tor return Sw call to discuss community resources/medicare questions. documented in this encounter [facility] 07-13-2023 Note HNO ID: [id number] Author: Beena WHITFIELD PA-C Service: ? Author Type: Physician Paster Hat Lining Type: Progress Notes Filed: 07/13/2023 20:01 Note Text: 78 year old female with c/o feeling weak, wasn't able to come in last visit Asking for home care: states called insurance and was told they would cover. Discussed this is not usually true with Medicare. Asked about respite care through Hospice- advised only available with end of life care. Essential hypertension (primary encounter diagnosis) Current meds: Lisinopril 20 mg daily: taking 1/2 daily Patient is compliant with meds Yes Monitors bp at home: No. If yes, readings: Denies side effects: Yes. Chest pain: No. Dyspnea: No. Edema: No. Palpitations: No. Syncope: No. Headache: No- doing better, headaches resolved. Dizziness: Has subsided from last visit Last 3 Encounter BP Readings: Date: BP: 07/13/2023 134/80 03/02/2023 138/80 12/01/2022 116/70 Last 2 Encounter Wt Readings: Date: Wt: 07/13/2023 0 kg () 03/02/2023 71.7 kg (158 lb) Mixed hyperlipidemia Statin intolerance Current medication none Taking medication consistently n/a Continues to refuse medication, talking about [employer] and b3 biotics Stomach complaints/ diarrhea Yes, chronic but currently not a problem. Occasionally 1-2 immodium tabs. Last 2 Lipids: No new data Component Latest Ref Rng AND Units 12/21/2020 06/05/2022 Cholesterol, Total <200 mg/dL 285 (H) 290 (H) Triglyceride <150 mg/dL 185 (H) 174 (H) HDL Cholesterol >39 mg/dL 52 48 LDL Cholesterol <100 mg/dL 196 (H) 207 (H) Non HDL Cholesterol <130 mg/dL 233 (H) 242 (H) Fasting Time hrs 10 13 VLDL Cholesterol <30 mg/dL 37 (H) 35 (H) TC:HDL Ratio <5.10 5.48 (H) 6.04 (H) LDL:HDL Ratio <2.54 3.77 (H) 4.31 (H) The 10-year ASCVD risk score (Cresencio BHAGAT, et al., 2019) is: 42.4% Values used to calculate the score: Age: 77 years Sex: Female Is Non- : No Diabetic: Yes Tobacco smoker: No Systolic Blood Pressure: 138 mmHg Is BP treated: Yes HDL Cholesterol: 48 mg/dL Total Cholesterol: 290 mg/dL Type 2 diabetes mellitus with diabetic neuropathy, without long-term current use of insulin (hcc) Current medications: Metformin 500mg twice a day with meals Taking medication as directed consistently? Yes Medical Issues / Complications: hypertension and hyperlipidemia Checking blood sugars at home? No. Watching diet? Eating a variety of foods, not really watching. Physical Activity: Sedentary Hypoglycemic spells? No Any visual disturbance? No Chest pain? No New numbness, tingling or loss of sensation? No Any recent foot problems, sores or rashes? No Any recent or sudden weight loss? No Change in urination? No. Wears diapers constantly. Urinates only during sleep. Any recent illness? No Last eye exam: due Last foot exam: due. Hemoglobin A1C (%) Date Value 12/01/2022 5.9 06/05/2022 5.8 12/21/2020 5.8 12/08/2019 5.5 ) ) Polyneuropathy associated with underlying disease (hcc) Current medications: Hydrocodone 5-3 25 #28 1 tablet every 6 hours as needed for pain sparingly Camphor-methyl salicylate-menthol patch 3.1-10-6% daily as needed to site Tylenol arthritis 650 mg CR 2 capsules every 8 hours as needed Pain level is better, not as bad. Using Joice very sparingly: cuts in half, at most twice a day. Myasthenia gravis (hcc) Pyridostigmine 60mg three times a day States taking 3/4 pill twice a day sometimes three times Notes they crumble so actually getting less, get powdery. Noted was getting more fatigued Fatigue currently better Wants to see neurologist Vitamin D3 2000u: 4000u daily confirmed. Did not complete lab Component Latest Ref Rng AND Units 12/18/2019 10/07/2021 Vitamin D 25 Hydroxy 31.0 - 80.0 ng/mL 58.1 30.4 (L) Allergic Rhinitis Chronic asthmatic bronchitis Current medications: Cromolyn sodium 4% 1 to 2 drops both eyes 4 times daily Fluticasone 50 MCG per actuation 2 sprays each nostril daily Budesonide-formoterol 2 puffs twice a day Albuterol HFA 90 MCG per actuation 2 puffs every 4 hours as needed Clariten D 5-120mg once a day usually works. 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 Interval history: no significant changes. . Worsening shortness of breath: Yes, with exertion, up and around more until weather changed. Cough: occasional. Wheezing: No. Smoking: No. Compliant with medications: Yes. Using rescue inhaler: has been using albuterol every 6h routinely along with longacting as directed. Feels this is really helping. Otitis externa: Current medications: Neomy/polymyx/dexameth 3.5 mg/mL-10,000 unit/mL - 0.1% 1 to 2 drops as needed Seems to keep eczema controlled with intermittent use. Hasn't been using lately and staring to have problems with ear crusting this week. Associates with allergies. Fibromyalgia Feeling better with warm weather Weather turne (more content not included)... [facility] 07-13-2023 History of Presen t illness Narrative 78 year old female with c/o feeling weak, wasn't able to come in last visit Asking for home care: states called insurance and was told they would cover. Discussed this is not usually true with Medicare. Asked about respite care through Hospice- advised only available with end of life care. Essential hypertension (primary encounter diagnosis) Current meds: Lisinopril 20 mg daily: taking 1/2 daily Patient is compliant with meds Yes Monitors bp at home: No. If yes, readings: Denies side effects: Yes. Chest pain: No. Dyspnea: No. Edema: No. Palpitations: No. Syncope: No. Headache: No- doing better, headaches resolved. Dizziness: Has subsided from last visit Last 3 Encounter BP Readings: Date: BP: 07/13/2023 134/80 03/02/2023 138/80 12/01/2022 116/70 Last 2 Encounter Wt Readings: Date: Wt: 07/13/2023 0 kg () 03/02/2023 71.7 kg (158 lb) Mixed hyperlipidemia Statin intolerance Current medication none Taking medication consistently n/a Continues to refuse medication, talking about [employer] and [employer] politics Stomach complaints/ diarrhea Yes, chronic but currently not a problem. Occasionally 1-2 immodium tabs. Last 2 Lipids: No new data Component Latest Ref Rng & Units 12/21/2020 06/05/2022 Cholesterol, Total <200 mg/dL 285 (H) 290 (H) Triglyceride <150 mg/dL 185 (H) 174 (H) HDL Cholesterol >39 mg/dL 52 48 LDL Cholesterol <100 mg/dL 196 (H) 207 (H) Non HDL Cholesterol <130 mg/dL 233 (H) 242 (H) Fasting Time hrs 10 13 VLDL Cholesterol <30 mg/dL 37 (H) 35 (H) TC:HDL Ratio <5.10 5.48 (H) 6.04 (H) LDL:HDL Ratio <2.54 3.77 (H) 4.31 (H) The 10-year ASCVD risk score (Cresencio BHAGAT, et al., 2019) is: 42.4% Values used to calculate the score: Age: 77 years Sex: Female Is Non- : No Diabetic: Yes Tobacco smoker: No Systolic Blood Pressure: 138 mmHg Is BP treated: Yes HDL Cholesterol: 48 mg/dL Total Cholesterol: 290 mg/dL Type 2 diabetes mellitus with diabetic neuropathy, without long-term current use of insulin (hcc) Current medications: Metformin 500mg twice a day with meals Taking medication as directed consistently? Yes Medical Issues / Complications: hypertension and hyperlipidemia Checking blood sugars at home? No. Watching diet? Eating a variety of foods, not really watching. Physical Activity: Sedentary Hypoglycemic spells? No Any visual disturbance? No Chest pain? No New numbness, tingling or loss of sensation? No Any recent foot problems, sores or rashes? No Any recent or sudden weight loss? No Change in urination? No. Wears diapers constantly. Urinates only during sleep. Any recent illness? No Last eye exam: due Last foot exam: due. Hemoglobin A1C (%) Date Value 12/01/2022 5.9 06/05/2022 5.8 12/21/2020 5.8 12/08/2019 5.5 ) ) Polyneuropathy associated with underlying disease (hcc) Current medications: Hydrocodone 5-3 25 #28 1 tablet every 6 hours as needed for pain sparingly Camphor-methyl salicylate-menthol patch 3.1-10-6% daily as needed to site Tylenol arthritis 650 mg CR 2 capsules every 8 hours as needed Pain level is better, not as bad. Using Joice very sparingly: cuts in half, at most twice a day. Myasthenia gravis (hcc) Pyridostigmine 60mg three times a day States taking 3/4 pill twice a day sometimes three times Notes they crumble so actually getting less, get powdery. Noted was getting more fatigued Fatigue currently better Wants to see neurologist Vitamin D3 2000u: 4000u daily confirmed. Did not complete lab Component Latest Ref Rng & Units 12/18/2019 10/07/2021 Vitamin D 25 Hydroxy 31.0 - 80.0 ng/mL 58.1 30.4 (L) Allergic Rhinitis Chronic asthmatic bronchitis Current medications: Cromolyn sodium 4% 1 to 2 drops both eyes 4 times daily Fluticasone 50 MCG per actuation 2 sprays each nostril daily Budesonide-formoterol 2 puffs twice a day Albuterol HFA 90 MCG per actuation 2 puffs every 4 hours as needed Clariten D 5-120mg once a day usually works. 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 Interval history: no significant changes. . Worsening shortness of breath: Yes, with exertion, up and around more until weather changed. Cough: occasional. Wheezing: No. Smoking: No. Compliant with medications: Yes. Using rescue inhaler: has been using albuterol every 6h routinely along with longacting as directed. Feels this is really helping. Otitis externa: Current medications: Neomy/polymyx/dexameth 3.5 mg/mL-10,000 unit/mL - 0.1% 1 to 2 drops as needed Seems to keep eczema controlled with intermittent use. Hasn't been using lately and staring to have problems with ear crusting this week. Associates with allergies. Fibromyalgia Feeling better with warm weather Weather turned 02/17/2023 arthritis worsening. Chronic stiffness and aching Weather changes Using Salon-pas with salicylate Not interested in additional medication Joint mostly left shoulder. Stopped tumeric and red pepper supplement: no change in pain in joint GERD Current medication: Omeprazole 20mg twice a day. Current symptoms: Has been better. 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 Heartburn is controlled: none. Occasioanl TUMS Dysphagia: no. Bloody or black stools: regular, once a day. Bowel changes: No. Last EGD and/or colonoscopy: ? Anxiety with depression Recurrent major depressive disorder, in partial remission (hcc) Current medications: Sertraline 100mg daily Feels she manages with this dose. Feeling more weak. Feels she is stable on this dose Continues to bathe herself with wet wipes. Planning to get he hair cut so she doesn't have to wash it- uses wet wipes on hair as well. Bone density screenin03/10/2023 DXA osteopenia left femoral neck 01/09/2019 DXA WNL Current medications: Estradiol off No hot flashes HISTORIES FAMILY HISTORY Problem Relation Age of Onset Hyperlipidemia Mother Macular Degen Mother other (tumor in chest) Mother Coronary Artery Disease Father CABG x 2 Hyperlipidemia Father Bipolar disorder Sister Hyperlipidemia Sister Hyperlipidemia Sister other (scleroderma) Sister Pancreatic Cancer Maternal Uncle Breast Cancer Maternal Aunt other (liver failure) Paternal Aunt other (Obstructive Sleep Apnea (aka LETTY)) Son PAST MEDICAL HISTORY Diagnosis Date Anxiety Chronic asthmatic bronchitis Degenerative joint disease, multiple joints on both sides of body Essential hypertension Fibromyalgia GERD (gastroesophageal reflux disease) Hyperlipidemia Major depression in partial remission (HCC) Major depression in partial remission (HCC) Myasthenia gravis (HCC) Peripheral neuropathy Type 2 diabetes mellitus (HCC) Vitamin D deficiency PAST SURGICAL HISTORY Procedure Laterality Date THYMECTOMY PRTL/TOT W/O RAD MEDSTNL DSJ SPX 1992 TOTAL ABDOMINAL HYSTERECT W/WO RMVL TUBE OVARY Social History Tobacco Use Smoking status: Former Smokeless tobacco: Never ACTIVE PROBLEM LIST Essential Hypertension Fibromyalgia Gerd (Gastroesophageal Reflux Disease) Mixed Hyperlipidemia Major Depression in Partial Remission (Hcc) Myasthenia Gravis (Hcc) Peripheral Neuropathy Type 2 Diabetes Mellitus With Diabetic Neuropathy, Without Long-Term Current Use of Insulin (Hcc) Anxiety Chronic Asthmatic Bronchitis Sandra (Iron Deficiency Anemia) Other Allergic Rhinitis Allergic Conjunctivitis of Both Eyes Anxiety With Depression Chronic Otitis Externa of Both Ears Vitamin D Deficiency Current Outpatient Medications Medication Sig Dispense Refill ondansetron (ZOFRAN) 4 mg tablet Take 1 tablet by mouth every 8 hours as needed. 30 tablet 1 CLARITIN-D 12 HOUR 5-120 mg per tablet Take 1 tablet by mouth two times a day. No generic requesting brand name 60 tablet 3 sertraline (ZOLOFT) 100 mg tablet Take 1 tablet by mouth once daily. 90 tablet 3 budesonide-formoterol (SYMBICORT) 80-4.5 mcg/actuation inhaler Inhale 2 Puffs as instructed two times a day. 1 Each 5 lisinopril (PRINIVIL) 20 mg tablet Take 1 tablet by mouth once daily. 90 tablet 1 SUMAtriptan (IMITREX) 100 mg tablet Take 1 tablet (100 mg) by mouth as needed. 18 tablet 3 neomycin/polymyxin b/dexametha(MAXITROL 3.5 MG/ML-10,000 UNIT/ML-0.1% EYE DROPS,SUSPENSION) 1-2 drops 3-4 times a day as needed for external otitis 10 mL 1 omeprazole (PRILOSEC) 20 mg capsule Take 1 capsule by mouth twice daily. 180 capsule 1 Cromolyn Sodium (CROLOM) 4 % ophthalmic solution Use 1-2 Drops in both eyes four times daily. 10 mL 3 albuterol HFA (VENTOLIN HFA) 90 mcg/actuation inhaler Inhale 2 Puffs as instructed every 4 hours as needed. 18 g 2 Estradiol (ESTRACE) 0.5 mg tablet Take 1 tablet by mouth once daily. 90 tablet 1 montelukast (SINGULAIR) 10 mg tablet Take 1 tablet by mouth daily at bedtime. 90 tablet 3 fluticasone (FLONASE) 50 mcg/actuation nasal spray Use 2 Sprays in each nostril once daily. 18.2 mL 3 diphenoxylate-atropine (LOMOTIL) 2.5-0.025 mg per tablet Take 1 tablet by mouth four times daily as needed for up to 60 days. 60 tablet 3 pyridostigmine (MESTINON) 60 mg tablet Take 1 tablet by mouth three times daily as needed. (Patient taking differently: Take 30 mg by mouth four times daily.) 90 tablet 5 budesonide-formoterol (SYMBICORT) 80-4.5 mcg/actuation inhaler Inhale 2 Puffs as instructed twice daily. 1 Each 11 naproxen sodium (ANAPROX) 220 mg tablet Take 220 mg by mouth twice daily with meals. acetaminophen 650 mg CR tablet Take 650 mg by mouth every 8 hours as needed. OTC PRODUCT Instaflex Advanced Joint Support (collagen, turmeric, resveratrol, black peper, bosellia, hyaluronic acid) camphor-methyl salicyl-menthol (SALONPAS) 3.1-10-6 % ptmd Apply to affected area. As needed metFORMIN (GLUCOPHAGE) 500 mg tablet Take 1 tablet by mouth twice daily with meals. . 180 tablet 1 Cholecalciferol, Vitamin D3, 50 mcg (2,000 unit) cap Take 6,000 Units by mouth once daily. No current facility-administered medications for this visit. BP Controlled (<130/80) Never done DTaP,Tdap,Td Vaccine(1 - Tdap) Never done Shingrix Vaccine(1 of 2) Never done RSV Vaccine(1 - 1-dose 60+ series) Never done Influenza Vaccine(1) due on 01/22/2023 Covid-19 Vaccine(2022- season) due on 01/22/2023 Advance Directive Discussion due on 05/24/2023 HbA1C due on 06/03/2023 Urine Albumin:Creatinine Ratio due on 06/05/2023 LDL Cholesterol due on 06/05/2023 Diabetic Foot Exam due on 06/05/2023 EXAM: BP 134/80 Pulse 93 Resp 16 SpO2 96% Pleasant elderly woman in no acute distress. Alert and oriented all spheres. Normal affect and cognition. Speech normal. No deficits to learning or comprehension. Expressing fatigue and can't sit long enough for appointment but really not much difference in appearance or communication. Skin warm, dry, pink to lips and nailbeds. Normal turgor. Respirations regular and unlabored. HEENT: NCAT. No scleral icterus or conjunctival injection. TM's clear. Nose and oropharynx free from injection or lesion. Oral membranes moist and pink. No cervical lymph nodes. Thyroid non-tender, no masses, or enlargement. Carotids pulses 2+/4+ without bruits. No JVD with HOB at 30 degrees. Chest is normal shape. Lungs are clear to all allison with good air exchange through out. HRRR without murmur or gallop. No lifts, heaves, or rubs. Extrem: no clubbing or cyanosis. Edema: none. Extremities are warm and pink with prompt capillary refill. ASSESSMENT/PLAN: 1. Encounter for immunization - ICD9: V03.89, ICD10: Z23 (primary diagnosis) - INFLUENZA VACCINE, PRSV FREE, AGE 65+ YR, HIGH DOSE, QUADRIVALENT (FLUZONE HIGH-DOSE) - PercuVision COVID-19 VACCINE ( SEASON) AGE 12+ YR 2. Myasthenia gravis (HCC) - ICD9: 358.00, ICD10: G70.00 Discussed self regulating and cutting tablets which aren't to be split into unreliable fragments. Discussed fatigue likely from MG: she agree to take full dose as prescribed and we will sort out diarrhea management - PYRIDOSTIGMINE BROMIDE 60 MG TABLET - CBC + DIFF - COMP METABOLIC PANEL 3. Recurrent major depressive disorder, in partial remission (HCC) - ICD9: 296.35, ICD10: F33.41 Continues on sertraline but feels it isn't making much difference Review weaning dosage over 3 weeks- says she's going to wait. - CBC + DIFF - COMP METABOLIC PANEL 4. Type 2 diabetes mellitus with diabetic neuropathy, without long-term current use of insulin (HCC) - ICD9: 250.60, 357.2, ICD10: E11.40 - Controlled - Continue current medications - CBC + DIFF - COMP METABOLIC PANEL - HGB A1C 5. Migraine with aura, not intractable, without status migrainosus - ICD9: 346.00, ICD10: G43.109 Infrequent headaches refill - SUMATRIPTAN 100 MG TABLET 6. Chronic asthmatic bronchitis - ICD9: 493.20, ICD10: J44.89 - Mild persistent asthma stable - Continue current medications - Avoidance of triggers recommended - ALBUTEROL SULFATE HFA 90 MCG/ACTUATION AEROSOL INHALER 7. Chronic pain of both shoulders - ICD9: 719.41, 338.29, ICD10: M25.511, G89.29, M25.512 8. Chronic hand pain, unspecified laterality - ICD9: 729.5, 338.29, ICD10: M79.643, G89.29 No diversion or increased use - HYDROCODONE 5 MG-ACETAMINOPHEN 325 MG TABLET 9. Nausea - ICD9: 787.02, ICD10: R11.0 - ONDANSETRON HCL 4 MG TABLET 10. Age-related physical debility - ICD9: 797, ICD10: R54 - STANDARD WHEELCHAIR - TSH BLD 11. Fatigue, unspecified type - ICD9: 780.79, ICD10: R53.83 - TSH BLD Follow in 3 months and through [facility] if having intermittent difficulties. Beena Whitfield PA-C Some of this note may have been copied and pasted for the purpose of history context and comparison and has been adjusted for changes in prior data. Beena Whitfield PA-C documented in this encounter [facility] 04-23-2023 Miscellaneous Notes Phoned pt, reached same recording- all circuits are busy. Faheem Martinez Tried to reach pt, Still receiving same recording. Adriana Reyna Ma Phoned pt, reached recording that states all circuits are busy. Faheem Martinez She can get #30 tabs on-line Good Rx for $0.58 She could get the generic much cheaper. Is she willing to try? Werner Payne PA-C Grace is calling Beena Whitfield PA-C today with concern regarding Medication Problem Patient is calling in stating that she can not afford the medication for the Claritin D 12 states that the morley has increased; she states that Werner Whitfield had offered to call in something different for this? Patient has been identified by name and birthdate. Duration of symptoms: N/A Person calling: self Call patient at: at home [phone] (home) [phone] (cell) Was an appointment scheduled: No Closing statement: Results or non-symptom based questions: Thank you for calling [facility], your call will be returned within the next business day. Francisca Paredes documented in this encounter [facility] 03-30-2023 Miscellaneous Notes Patient has been identified by name and date of : Yes Requested Prescriptions Pending Prescriptions Disp Refills CLARITIN-D 12 HOUR 5-120 mg per tablet 60 tablet 3 Sig: Take 1 tablet by mouth two times a day. No generic requesting brand name RX INSTRUCTIONS: Patient aware RX will be sent to pharmacy. No need to notify patient. Francisca Paredes documented in this encounter [facility] 03-11-2023 Miscellaneous Notes The following approved medication requests have been transmitted electronically. Requested Prescriptions Signed Prescriptions Disp Refills sertraline (ZOLOFT) 100 mg tablet 90 tablet 3 Sig: Take 1 tablet by mouth once daily. Authorizing Provider: Beena WHITFIELD PA-C Please resend rx Kamryn Lamar Ma Patient stated she tried to refill her sertraline rx and [facility] is insisting she doesn't have anymore refills. Epic shows there should be refills at pharmacy. Wants to know if we can clarify with the pharmacy what the issue is. documented in this encounter [facility] 03-10-2023 Note HNO ID: [id number] Author: Lizzie Cardoza MD Service: ? Author Type: Physician Type: Progress Notes Filed: 03/10/2023 2:58 PM Note Text: Assessment and Plan 1. Type 2 diabetes mellitus without retinopathy (HCC) -no diabetic retinopathy both eyes 2. Myasthenia gravis (HCC) -on pyridostigmine -minimal occasional double vision and ptosis -not interested in prisms 3. Age-related cataract of both eyes, combine age-related cataract type -early visual significance 4. Dry eye syndrome both eyes -with crusting both eyes Plan: -Continue blood sugar and blood pressure control -continue artificial tears three times a day both eyes -continue follow-up primary care physician and neurology -Dr. Conley in 1 year with dilated fundus exam both eyes / sooner as needed I have confirmed and edited as necessary the relevant ophthalmic history, ROS, and the neuro exam findings as obtained by others. I have seen and examined Grace Rush. I have discussed the case and the management of this patient's care with the Resident/Fellow, if applicable. I also have reviewed and agree with the assessment and plan as stated above and agree with all of its relevant components. Lizzie Cardoza MD [facility] 03-10-2023 Note HNO ID: [id number] Author: Darrion Mott RT(R) Service: ? Author Type: Technologist Type: Progress Notes Filed: 03/10/2023 1:43 PM Note Text: Radiology Service Progress Note PATIENT NAME: Grace Rush DATE OF SERVICE: March 10, 2023 TIME: 1:27 PM PATIENT IDENTITY VERIFICATION COMPLETED USING TWO (2) IDENTIFIERS: Name and Date of confirmed by patient verbally. FALL SCREENING: Has the patient had 2 falls in the last year or 1 fall with injury or currently using an Ambulatory Assistive Device (Walker, Cane, Wheelchair, Crutches, etc.)? No PATIENT GENDER DATA: Female. status: : No status: NO. PATIENT RELEVANT IMPLANT DATA REVIEWED: Not Applicable RADIOLOGY DEPARTMENT: Bone Density PERIPHERAL IV DATA: Not applicable SIGNED BY: Darrion Mott RT(R) March 10, 2023 1:27 PM [facility] 03-10-2023 History of Presen t illness Narrative Assessment and Plan 1. Type 2 diabetes mellitus without retinopathy (HCC) -no diabetic retinopathy both eyes 2. Myasthenia gravis (HCC) -on pyridostigmine -minimal occasional double vision and ptosis -not interested in prisms 3. Age-related cataract of both eyes, combine age-related cataract type -early visual significance 4. Dry eye syndrome both eyes -with crusting both eyes Plan: -Continue blood sugar and blood pressure control -continue artificial tears three times a day both eyes -continue follow-up primary care physician and neurology -Dr. Conley in 1 year with dilated fundus exam both eyes / sooner as needed I have confirmed and edited as necessary the relevant ophthalmic history, ROS, and the neuro exam findings as obtained by others. I have seen and examined Grace Rush. I have discussed the case and the management of this patient's care with the Resident/Fellow, if applicable. I also have reviewed and agree with the assessment and plan as stated above and agree with all of its relevant components. Lizzie Cardoza MD documented in this encounter [facility] 03-10-2023 History of Presen t illness Narrative Radiology Service Progress Note PATIENT NAME: Grace Rush DATE OF SERVICE: March 10, 2023 TIME: 1:27 PM PATIENT IDENTITY VERIFICATION COMPLETED USING TWO (2) IDENTIFIERS: Name and Date of confirmed by patient verbally. FALL SCREENING: Has the patient had 2 falls in the last year or 1 fall with injury or currently using an Ambulatory Assistive Device (Walker, Cane, Wheelchair, Crutches, etc.)? No PATIENT GENDER DATA: Female. status: : No status: NO. PATIENT RELEVANT IMPLANT DATA REVIEWED: Not Applicable RADIOLOGY DEPARTMENT: Bone Density PERIPHERAL IV DATA: Not applicable SIGNED BY: RT Jose(R) March 10, 2023 1:27 PM documented in this encounter [facility] 03-02-2023 Note HNO ID: [id number] Author: Beena Whitfield PA-C Service: ? Author Type: Physician Paster Hat Lining Type: Progress Notes Filed: 03/02/2023 12:41 PM Note Text: 77 year old female with c/o here for routine follow up Essential hypertension (primary encounter diagnosis) Current meds: Lisinopril 20 mg daily Patient is compliant with meds Yes Monitors bp at home: No. If yes, readings: Denies side effects: Yes. Chest pain: No. Dyspnea: No. Edema: No. Palpitations: No. Syncope: No. Headache: No- doing better, headaches resolved. Dizziness: Has subsided from last visit Last 3 Encounter BP Readings: Date: BP: 03/02/2023 138/80 12/01/2022 116/70 09/03/2022 132/80 Last 2 Encounter Wt Readings: Date: Wt: 03/02/2023 71.7 kg (158 lb) 12/01/2022 70.3 kg (155 lb) Mixed hyperlipidemia Statin intolerance Current medication none Taking medication consistently n/a Not interested in taking cholesterol medication has read research that people live longer with high cholesterol. 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 Chronic minor muscle aches Stomach complaints/ diarrhea Yes, chronic but currently not a problem. Occasionally 1-2 immodium tabs. Last 2 Lipids: Component Latest Ref Rng AND Units 12/21/2020 06/05/2022 Cholesterol, Total <200 mg/dL 285 (H) 290 (H) Triglyceride <150 mg/dL 185 (H) 174 (H) HDL Cholesterol >39 mg/dL 52 48 LDL Cholesterol <100 mg/dL 196 (H) 207 (H) Non HDL Cholesterol <130 mg/dL 233 (H) 242 (H) Fasting Time hrs 10 13 VLDL Cholesterol <30 mg/dL 37 (H) 35 (H) TC:HDL Ratio <5.10 5.48 (H) 6.04 (H) LDL:HDL Ratio <2.54 3.77 (H) 4.31 (H) The 10-year ASCVD risk score (Cresencio BHAGAT, et al., 2019) is: 42.4% Values used to calculate the score: Age: 77 years Sex: Female Is Non- : No Diabetic: Yes Tobacco smoker: No Systolic Blood Pressure: 138 mmHg Is BP treated: Yes HDL Cholesterol: 48 mg/dL Total Cholesterol: 290 mg/dL Type 2 diabetes mellitus with diabetic neuropathy, without long-term current use of insulin ([facility]) Current medications: Metformin 500mg twice a day with meals Taking medication as directed consistently? Yes Medical Issues / Complications: hypertension and hyperlipidemia Checking blood sugars at home? No. Watching diet? Eating a variety of foods, not really watching. Physical Activity: Sedentary Hypoglycemic spells? No Any visual disturbance? No Chest pain? No New numbness, tingling or loss of sensation? No Any recent foot problems, sores or rashes? No Any recent or sudden weight loss? No Change in urination? No. Wears diapers constantly. Urinates only during sleep. Any recent illness? No Last eye exam: 1 year ago. Last foot exam: due. Polyneuropathy associated with underlying disease ([facility]) Current medications: Hydrocodone 5-3 25 #28 1 tablet every 6 hours as needed for pain sparingly Camphor-methyl salicylate-menthol patch 3.1-10-6% daily as needed to site Tylenol arthritis 650 mg CR 2 capsules every 8 hours as needed Pain level is better, not as bad. Using Joice very sparingly: cuts in half, at most twice a day. Myasthenia gravis (hcc) Pyridostigmine 60mg three times a day States taking 1/2 pill every 6h because that's all she needs, works well, if takes 60mg gets diarrhea Notes they crumble so actually getting less, get powdery. Noted was getting more fatigued Fatigue currently better Vitamin D3 2000u: 4000u daily confirmed. Component Latest Ref Rng AND Units 12/18/2019 10/07/2021 Vitamin D 25 Hydroxy 31.0 - 80.0 ng/mL 58.1 30.4 (L) Allergic Rhinitis Chronic asthmatic bronchitis Current medications: Cromolyn sodium 4% 1 to 2 drops both eyes 4 times daily Fluticasone 50 MCG per actuation 2 sprays each nostril daily Budesonide-formoterol 2 puffs twice a day Albuterol HFA 90 MCG per actuation 2 puffs every 4 hours as needed Clariten D 5-120mg once a day usually works. 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 Interval history: no significant changes. . Worsening shortness of breath: Yes, with exertion, up and around more until weather changed. Cough: occasional. Wheezing: No. Smoking: No. Compliant with medications: Yes. Using rescue inhaler: has been using albuterol every 6h routinely along with longacting as directed. Feels this is really helping. Otitis externa: Current medications: Neomy/polymyx/dexameth 3.5 mg/mL-10,000 unit/mL - 0.1% 1 to 2 drops as needed Seems to keep eczema controlled with intermittent use. Hasn't been using lately and staring to have problems with ear crusting this week. Associates with allergies. Fibromyalgia Feeling better with warm weather Weather turned 02/17/2023 arthritis worsening. Chronic stiffness and aching Weather changes Using Salon-pas with salicylate Not interested in additional medication Joint mostly left shoulder. (more content not included)... [facility] 03-02-2023 Instructions Beena Whitfield PA-C - 03/02/2023 11:23 AM EDT BONE MINERAL DENSITY PATIENT INSTRUCTIONS ========= Bone mineral density testing measures the amount of calcium in certain parts of your bones. This information determines how strong your bones are. The test is used to detect osteoporosis, a disease in which the bone's mineral content and density are low, increasing a person's risk of fractures. The lumbar spine (lower back) and the hip are the skeletal sites usually examined. For the test, remember that: 1. You cannot take this test if you are . 2. Eat a normal diet on the day of the test. 3. Take your medications as you normally would. 4. DO NOT take calcium supplements (such as Tums) for 24 hours before the test. 5. On the day of the test, leave valuables (jewelry or credit cards) at home. 6. The test should be performed prior to oral, rectal or IV contrast studies, or at least 7 days after any of these studies. For the test, you may be asked to wear a hospital gown. You will lie on your back, on a padded table, in a comfortable position. Generally, you can resume your usual activities immediately. documented in this encounter [facility] 03-02-2023 History of Presen t illness Narrative 77 year old female with c/o here for routine follow up Essential hypertension (primary encounter diagnosis) Current meds: Lisinopril 20 mg daily Patient is compliant with meds Yes Monitors bp at home: No. If yes, readings: Denies side effects: Yes. Chest pain: No. Dyspnea: No. Edema: No. Palpitations: No. Syncope: No. Headache: No- doing better, headaches resolved. Dizziness: Has subsided from last visit Last 3 Encounter BP Readings: Date: BP: 03/02/2023 138/80 12/01/2022 116/70 09/03/2022 132/80 Last 2 Encounter Wt Readings: Date: Wt: 03/02/2023 71.7 kg (158 lb) 12/01/2022 70.3 kg (155 lb) Mixed hyperlipidemia Statin intolerance Current medication none Taking medication consistently n/a Not interested in taking cholesterol medication has read research that people live longer with high cholesterol. 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 Chronic minor muscle aches Stomach complaints/ diarrhea Yes, chronic but currently not a problem. Occasionally 1-2 immodium tabs. Last 2 Lipids: Component Latest Ref Rng & Units 12/21/2020 06/05/2022 Cholesterol, Total <200 mg/dL 285 (H) 290 (H) Triglyceride <150 mg/dL 185 (H) 174 (H) HDL Cholesterol >39 mg/dL 52 48 LDL Cholesterol <100 mg/dL 196 (H) 207 (H) Non HDL Cholesterol <130 mg/dL 233 (H) 242 (H) Fasting Time hrs 10 13 VLDL Cholesterol <30 mg/dL 37 (H) 35 (H) TC:HDL Ratio <5.10 5.48 (H) 6.04 (H) LDL:HDL Ratio <2.54 3.77 (H) 4.31 (H) The 10-year ASCVD risk score (Cresencio BHAGAT, et al., 2019) is: 42.4% Values used to calculate the score: Age: 77 years Sex: Female Is Non- : No Diabetic: Yes Tobacco smoker: No Systolic Blood Pressure: 138 mmHg Is BP treated: Yes HDL Cholesterol: 48 mg/dL Total Cholesterol: 290 mg/dL Type 2 diabetes mellitus with diabetic neuropathy, without long-term current use of insulin ([facility]) Current medications: Metformin 500mg twice a day with meals Taking medication as directed consistently? Yes Medical Issues / Complications: hypertension and hyperlipidemia Checking blood sugars at home? No. Watching diet? Eating a variety of foods, not really watching. Physical Activity: Sedentary Hypoglycemic spells? No Any visual disturbance? No Chest pain? No New numbness, tingling or loss of sensation? No Any recent foot problems, sores or rashes? No Any recent or sudden weight loss? No Change in urination? No. Wears diapers constantly. Urinates only during sleep. Any recent illness? No Last eye exam: 1 year ago. Last foot exam: due. Polyneuropathy associated with underlying disease ([facility]) Current medications: Hydrocodone 5-3 25 #28 1 tablet every 6 hours as needed for pain sparingly Camphor-methyl salicylate-menthol patch 3.1-10-6% daily as needed to site Tylenol arthritis 650 mg CR 2 capsules every 8 hours as needed Pain level is better, not as bad. Using Joice very sparingly: cuts in half, at most twice a day. Myasthenia gravis (hcc) Pyridostigmine 60mg three times a day States taking 1/2 pill every 6h because that's all she needs, works well, if takes 60mg gets diarrhea Notes they crumble so actually getting less, get powdery. Noted was getting more fatigued Fatigue currently better Vitamin D3 2000u: 4000u daily confirmed. Component Latest Ref Rng & Units 12/18/2019 10/07/2021 Vitamin D 25 Hydroxy 31.0 - 80.0 ng/mL 58.1 30.4 (L) Allergic Rhinitis Chronic asthmatic bronchitis Current medications: Cromolyn sodium 4% 1 to 2 drops both eyes 4 times daily Fluticasone 50 MCG per actuation 2 sprays each nostril daily Budesonide-formoterol 2 puffs twice a day Albuterol HFA 90 MCG per actuation 2 puffs every 4 hours as needed Clariten D 5-120mg once a day usually works. 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 Interval history: no significant changes. . Worsening shortness of breath: Yes, with exertion, up and around more until weather changed. Cough: occasional. Wheezing: No. Smoking: No. Compliant with medications: Yes. Using rescue inhaler: has been using albuterol every 6h routinely along with longacting as directed. Feels this is really helping. Otitis externa: Current medications: Neomy/polymyx/dexameth 3.5 mg/mL-10,000 unit/mL - 0.1% 1 to 2 drops as needed Seems to keep eczema controlled with intermittent use. Hasn't been using lately and staring to have problems with ear crusting this week. Associates with allergies. Fibromyalgia Feeling better with warm weather Weather turned 02/17/2023 arthritis worsening. Chronic stiffness and aching Weather changes Using Salon-pas with salicylate Not interested in additional medication Joint mostly left shoulder. Stopped tumeric and red pepper supplement: no change in pain in joint GERD Current medication: Omeprazole 20mg twice a day. Current symptoms: Has been better. 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 Heartburn is controlled: none. Occasioanl TUMS Dysphagia: no. Bloody or black stools: regular, once a day. Bowel changes: No. Last EGD and/or colonoscopy: ? Anxiety with depression Recurrent major depressive disorder, in partial remission (hcc) Current medications: Sertraline 100mg daily Feels she manages with this dose. Feeling more weak. Feels she is stable on this dose Continues to bathe herself with wet wipes. Planning to get he hair cut so she doesn't have to wash it- uses wet wipes on hair as well. Last DXA 01/09/2019 WNL HISTORIES FAMILY HISTORY Problem Relation Age of Onset Hyperlipidemia Mother Macular Degen Mother other (tumor in chest) Mother Coronary Artery Disease Father CABG x 2 Hyperlipidemia Father Bipolar disorder Sister Hyperlipidemia Sister Hyperlipidemia Sister other (scleroderma) Sister Pancreatic Cancer Maternal Uncle Breast Cancer Maternal Aunt other (liver failure) Paternal Aunt other (Obstructive Sleep Apnea (aka LETTY)) Son 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) Major depression in partial remission (HCC) Myasthenia gravis (HCC) Peripheral neuropathy Type 2 diabetes mellitus (HCC) Vitamin D deficiency PAST SURGICAL HISTORY Procedure Laterality Date THYMECTOMY PRTL/TOT W/O RAD MEDSTNL DSJ SPX 1992 TOTAL ABDOMINAL HYSTERECT W/WO RMVL TUBE OVARY Social History Tobacco Use Smoking status: Former Smokeless tobacco: Never ACTIVE PROBLEM LIST Essential Hypertension Fibromyalgia Gerd (Gastroesophageal Reflux Disease) Mixed Hyperlipidemia Major Depression in Partial Remission (Hcc) Myasthenia Gravis (Hcc) Peripheral Neuropathy Type 2 Diabetes Mellitus With Diabetic Neuropathy, Without Long-Term Current Use of Insulin (Hcc) Anxiety Chronic Asthmatic Bronchitis Sandra (Iron Deficiency Anemia) Other Allergic Rhinitis Allergic Conjunctivitis of Both Eyes Anxiety With Depression Current Outpatient Medications Medication Sig Dispense Refill lisinopril (PRINIVIL) 20 mg tablet Take 1 tablet by mouth once daily. 90 tablet 1 SUMAtriptan (IMITREX) 100 mg tablet Take 1 tablet (100 mg) by mouth as needed. 18 tablet 3 neomycin/polymyxin b/dexametha(MAXITROL 3.5 MG/ML-10,000 UNIT/ML-0.1% EYE DROPS,SUSPENSION) 1-2 drops 3-4 times a day as needed for external otitis 10 mL 1 omeprazole (PRILOSEC) 20 mg capsule Take 1 capsule by mouth twice daily. 180 capsule 1 ondansetron (ZOFRAN) 4 mg tablet Take 1 tablet by mouth every 8 hours as needed. 30 tablet 1 Cromolyn Sodium (CROLOM) 4 % ophthalmic solution Use 1-2 Drops in both eyes four times daily. 10 mL 3 CLARITIN-D 12 HOUR 5-120 mg per tablet Take 1 tablet by mouth twice daily. No generic requesting brand name 60 tablet 3 albuterol HFA (VENTOLIN HFA) 90 mcg/actuation inhaler Inhale 2 Puffs as instructed every 4 hours as needed. 18 g 2 Estradiol (ESTRACE) 0.5 mg tablet Take 1 tablet by mouth once daily. 90 tablet 1 montelukast (SINGULAIR) 10 mg tablet Take 1 tablet by mouth daily at bedtime. 90 tablet 3 sertraline (ZOLOFT) 100 mg tablet Take 1 tablet by mouth once daily. 90 tablet 3 fluticasone (FLONASE) 50 mcg/actuation nasal spray Use 2 Sprays in each nostril once daily. 18.2 mL 3 Promethazine-DM (PHENERGAN-DM) 6.25-15 mg/5 mL syrup Take 5 mL by mouth four times daily as needed (not in same 12h as Clariten D). 120 mL 1 diphenoxylate-atropine (LOMOTIL) 2.5-0.025 mg per tablet Take 1 tablet by mouth four times daily as needed for up to 60 days. 60 tablet 3 pyridostigmine (MESTINON) 60 mg tablet Take 1 tablet by mouth three times daily as needed. (Patient taking differently: Take 30 mg by mouth four times daily.) 90 tablet 5 budesonide-formoterol (SYMBICORT) 80-4.5 mcg/actuation inhaler Inhale 2 Puffs as instructed twice daily. 1 Each 5 budesonide-formoterol (SYMBICORT) 80-4.5 mcg/actuation inhaler Inhale 2 Puffs as instructed twice daily. 1 Each 11 naproxen sodium (ANAPROX) 220 mg tablet Take 220 mg by mouth twice daily with meals. acetaminophen 650 mg CR tablet Take 650 mg by mouth every 8 hours as needed. OTC PRODUCT Instaflex Advanced Joint Support (collagen, turmeric, resveratrol, black peper, bosellia, hyaluronic acid) camphor-methyl salicyl-menthol (SALONPAS) 3.1-10-6 % ptmd Apply to affected area. As needed metFORMIN (GLUCOPHAGE) 500 mg tablet Take 1 tablet by mouth twice daily with meals. . 180 tablet 1 Cholecalciferol, Vitamin D3, 50 mcg (2,000 unit) cap Take 6,000 Units by mouth once daily. No current facility-administered medications for this visit. DTaP,Tdap,Td Vaccine(1 - Tdap) Never done Shingrix Vaccine(1 of 2) Never done Hepatitis B Vaccine(1 of 3 - Risk 3-dose series) Never done Dilated Retinal Exam due on 03/25/2022 Colorectal Cancer Screening due on 09/25/2022 Influenza Vaccine(1) due on 01/22/2023 Covid-19 Vaccine(2022- season) due on 01/22/2023 EXAM: BP 138/80 Pulse 83 Resp 16 Wt 71.7 kg (158 lb) SpO2 99% BMI 27.99 kg/m Pleasant adult woman in usual state, in no acute distress. Alert and oriented all spheres. Normal affect and cognition. Speech normal. No deficits to learning or comprehension. Skin warm, dry, pink to lips and nailbeds. Normal turgor. Respirations regular and unlabored. HEENT: NCAT. No scleral icterus or conjunctival injection. External left ear dry skin, a few scaly areas slightly red in external meatus. TM's clear. Nose and oropharynx free from injection or lesion. Oral membranes moist and pink. No cervical lymph nodes. Thyroid non-tender, no masses, or enlargement. Carotids pulses 2+/4+ without bruits. No JVD with HOB at 30 degrees. Chest is normal shape. Lungs are clear to all allison with good air exchange through out. HRRR without murmur or gallop. No lifts, heaves, or rubs. Extrem: no clubbing or cyanosis. Edema: none. Extremities are warm and pink with prompt capillary refill. ASSESSMENT/PLAN: 1. Essential hypertension - ICD9: 401.9, ICD10: I10 (primary diagnosis) - Controlled - Continue current medications - Recommend home blood pressure monitoring, to bring results to next visit - Encouraged sodium restriction, DASH or Mediterranean diet - Recommend regular aerobic exercise - CBC + DIFF - COMP METABOLIC PANEL 2. Mixed hyperlipidemia - ICD9: 272.2, ICD10: E78.2 - Uncontrolled, high risk score, continues to decline medication - Counseled on healthy diet and regular exercise - LIPID PANEL BASIC 3. Statin intolerance - ICD9: 995.27, ICD10: Z78.9 4. Type 2 diabetes mellitus with diabetic neuropathy, without long-term current use of insulin ([facility]) - ICD9: 250.60, 357.2, ICD10: E11.40 - Controlled - Continue current medications - CBC + DIFF - COMP METABOLIC PANEL - HGB A1C 5. Polyneuropathy associated with underlying disease ([facility]) - ICD9: 357.4, ICD10: G63 Doing pretty well, 6. Myasthenia gravis ([facility]) - ICD9: 358.00, ICD10: G70.00 As above, breaking tablets. Discussed liquid form to be more accurate if using smaller doses- she declines. 7. Vitamin D deficiency - ICD9: 268.9, ICD10: E55.9 Taking supplements as ordered - VITAMIN D 25 HYDROXY 8. Other allergic rhinitis - ICD9: 477.8, ICD10: J30.89 9. Allergic conjunctivitis of both eyes - ICD9: 372.14, ICD10: H10.13 Stable on current regimen, continue 10. Chronic asthmatic bronchitis - ICD9: 493.20, ICD10: J44.89 - Moderate persistent asthma stable - Continue current medications - Avoidance of triggers recommended 11. Chronic otitis externa of both ears, unspecified type - ICD9: 380.23, ICD10: H60.63 Continue current medications 12. Fibromyalgia - ICD9: 729.1, ICD10: M79.7 Stable with current meds 13. Anxiety with depression - ICD9: 300.4, ICD10: F41.8 Good control, continue meds - CBC + DIFF - COMP METABOLIC PANEL 14. Recurrent major depressive disorder, in partial remission (HCC) - ICD9: 296.35, ICD10: F33.41 Good control, continue meds - CBC + DIFF - COMP METABOLIC PANEL 15. Chronic pain of both shoulders - ICD9: 719.41, 338.29, ICD10: M25.511, G89.29, M25.512 Refill - HYDROCODONE 5 MG-ACETAMINOPHEN 325 MG TABLET 16. Chronic hand pain, unspecified laterality - ICD9: 729.5, 338.29, ICD10: M79.643, G89.29 refill - HYDROCODONE 5 MG-ACETAMINOPHEN 325 MG TABLET 17. Nausea - ICD9: 787.02, ICD10: R11.0 refill - ONDANSETRON HCL 4 MG TABLET 18. Asymptomatic postmenopausal status - ICD9: V49.81, ICD10: Z78.0 Due for recheck - DXA-AXIAL SKELETON F/u 3 months for pain rx Some of this note may have been copied and pasted for the purpose of history context and comparison and has been adjusted for changes in prior data. Beena Whitfield PA-C documented in this encounter [facility] 12-02-2022 Miscellaneous Notes Eliza from [employer] area called to give patient update that the request for an air conditioner has been denied as a non-covered Medicare benefit. If there are any questions, you can call her at the number above. documented in this encounter [facility] 12-01-2022 Miscellaneous Notes Letter faxed Printed. Werner Payne PA-C Eliza from [employer] would like Rx/letter for Air Conditioner for Pt. She has COPD and allergies. Please fax to . documented in this encounter [facility] 12-01-2022 Note HNO ID: [id number] Author: Beena Whitfield PA-C Service: ? Author Type: Physician Paster Hat Lining Type: Progress Notes Filed: 12/01/2022 2:01 PM Note Text: 77 year old female with c/o here for 3 month follow up Essential hypertension (primary encounter diagnosis) Current meds: Lisinopril 20 mg daily Patient is compliant with meds Yes Monitors bp at home: No. If yes, readings: Denies side effects: Yes. Chest pain: No. Dyspnea: No. Edema: No. Palpitations: No. Syncope: No. Headache: No- doing better, headaches resolved. Dizziness: Has subsided from last visit Component Latest Ref Rng AND Units 12/21/2020 09/26/2021 06/05/2022 WBC 3.70 - 11.00 k/uL 9.11 12.65 (H) RBC 3.90 - 5.20 m/uL 4.44 4.10 Hemoglobin 11.5 - 15.5 g/dL 12.8 11.6 Hematocrit 36.0 - 46.0 % 41.1 37.5 MCV 80.0 - 100.0 fL 92.6 91.5 MCH 26.0 - 34.0 pg 28.8 28.3 MCHC 30.5 - 36.0 g/dL 31.1 30.9 RDW-CV 11.5 - 15.0 % 14.8 14.1 Platelet Count 150 - 400 k/uL 441 (H) 439 (H) MPV 9.0 - 12.7 fL 10.4 10.6 Neut% % 60.7 80.9 Abs Neut (ANC) 1.45 - 7.50 k/uL 5.51 10.23 (H) Lymph% % 27.3 11.9 Abs Lymph 1.00 - 4.00 k/uL 2.49 1.51 [place]% % 7.1 4.4 Abs [place] <0.87 k/uL 0.65 0.56 Eosin% % 4.0 1.6 Abs Eosin <0.46 k/uL 0.36 0.20 Baso% % 0.9 0.7 Abs Baso <0.11 k/uL 0.08 0.09 Immature Gran % % 0.5 IMMATURE GRANS (ABS) <0.10 k/uL 0.06 NRBC /100 WBC 0.0 Absolute nRBC <0.01 k/uL <0.01 <0.01 DTYPE Auto Nucleated Reds 0 /100 WBC 0.0 Diff Type Auto Diff Protein, Total 6.3 - 8.0 g/dL 7.0 7.2 6.6 Albumin 3.9 - 4.9 g/dL 3.8 (L) 4.0 3.9 Calcium 8.5 - 10.2 mg/dL 10.0 10.1 9.5 Bilirubin, Total 0.2 - 1.3 mg/dL 0.3 0.2 0.2 Alkaline Phosphatase 34 - 123 U/L 124 (H) 119 103 AST 13 - 35 U/L 17 20 20 Glucose 74 - 99 mg/dL 103 (H) 148 (H) 105 (H) BUN 7 - 21 mg/dL 21 20 22 (H) Creatinine 0.58 - 0.96 mg/dL 0.74 0.78 0.77 Sodium 136 - 144 mmol/L 138 140 138 Potassium 3.7 - 5.1 mmol/L 4.4 4.1 4.4 Chloride 97 - 105 mmol/L 104 104 103 CO2 22 - 30 mmol/L 21 (L) 23 23 Anion Gap 9 - 18 mmol/L 13 13 12 ALT 7 - 38 U/L 17 21 18 eGFR- >60 eGFR-All Other Races . >60 eGFR >=60 mL/min/1.73mA? 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 Chronic minor muscle aches Stomach complaints/ diarrhea Yes, chronic but currently not a problem. Occasionally 1-2 immodium tabs. Last 2 Lipids: Component Latest Ref Rng AND Units 07/01/2018 06/05/2022 Cholesterol, Total <200 mg/dL 291 (H) 290 (H) Triglyceride <150 mg/dL 203 (H) 174 (H) HDL Cholesterol >39 mg/dL 62 48 LDL Cholesterol <100 mg/dL 188 (H) 207 (H) Non HDL Cholesterol <130 mg/dL 229 (H) 242 (H) Fasting Time hrs Unknown 13 VLDL Cholesterol <30 mg/dL 41 (H) 35 (H) TC:HDL Ratio <5.10 4.69 6.04 (H) LDL:HDL Ratio <2.54 3.03 (H) 4.31 (H) Type 2 diabetes mellitus with diabetic neuropathy, without long-term current use of insulin (hcc) Current medications: Metformin 500mg twice a day with meals Taking medication as directed consistently? Yes Medical Issues / Complications: hypertension and hyperlipidemia Checking blood sugars at home? No. Watching diet? Eating a variety of foods, not really watching. Physical Activity: Sedentary Hypoglycemic spells? No Any visual disturbance? No Chest pain? No New numbness, tingling or loss of sensation? No Any recent foot problems, sores or rashes? No Any recent or sudden weight loss? No Change in urination? No. Wears diapers constantly. Urinates only during sleep. Any recent illness? No Last eye exam: 1 year ago. Last foot exam: due. Hemoglobin A1C (%) Date Value 06/05/2022 5.8 09/26/2021 6.0 12/21/2020 5.8 12/08/2019 5.5 ) Polyneuropathy associated with underlying disease (hcc) Current medications: Hydrocodone 5-3 25 #28 1 tablet every 6 hours as needed for pain sparingly Camphor-methyl salicylate-menthol patch 3.1-10-6% daily as needed to site Tylenol arthritis 650 mg CR 2 capsules every 8 hours as needed Pain level is better, not as bad. Using Joice very sparingly. Myasthenia gravis (hcc) Pyridostigmine 60mg three times a day States taking 1/2 pill every 6h because that's all she needs, works well. Fatigue currently better Vitamin D3 2000u: 4000u daily confirmed. Component Latest Ref Rng AND Units 12/18/2019 10/07/2021 Vitamin D 25 Hydroxy 31.0 - 80.0 ng/mL 58.1 30.4 (L) Allergic Rhinitis Chronic asthmatic bronchitis Current medications: Cromolyn sodium 4% 1 to 2 drops both eyes 4 times daily Fluticasone 50 MCG per actuation 2 sprays each nostril daily Budesonide-formoterol 2 puffs twice a day Albuterol HFA 90 MCG per actuation 2 puffs every 4 hours as needed Clariten D 5-120mg once a day usually works. 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 Interval history: no significant changes. . (more content not included)... [facility] 12-01-2022 History of Presen t illness Narrative 77 year old female with c/o here for 3 month follow up Essential hypertension (primary encounter diagnosis) Current meds: Lisinopril 20 mg daily Patient is compliant with meds Yes Monitors bp at home: No. If yes, readings: Denies side effects: Yes. Chest pain: No. Dyspnea: No. Edema: No. Palpitations: No. Syncope: No. Headache: No- doing better, headaches resolved. Dizziness: Has subsided from last visit Component Latest Ref Rng & Units 12/21/2020 09/26/2021 06/05/2022 WBC 3.70 - 11.00 k/uL 9.11 12.65 (H) RBC 3.90 - 5.20 m/uL 4.44 4.10 Hemoglobin 11.5 - 15.5 g/dL 12.8 11.6 Hematocrit 36.0 - 46.0 % 41.1 37.5 MCV 80.0 - 100.0 fL 92.6 91.5 MCH 26.0 - 34.0 pg 28.8 28.3 MCHC 30.5 - 36.0 g/dL 31.1 30.9 RDW-CV 11.5 - 15.0 % 14.8 14.1 Platelet Count 150 - 400 k/uL 441 (H) 439 (H) MPV 9.0 - 12.7 fL 10.4 10.6 Neut% % 60.7 80.9 Abs Neut (ANC) 1.45 - 7.50 k/uL 5.51 10.23 (H) Lymph% % 27.3 11.9 Abs Lymph 1.00 - 4.00 k/uL 2.49 1.51 [place]% % 7.1 4.4 Abs [place] <0.87 k/uL 0.65 0.56 Eosin% % 4.0 1.6 Abs Eosin <0.46 k/uL 0.36 0.20 Baso% % 0.9 0.7 Abs Baso <0.11 k/uL 0.08 0.09 Immature Gran % % 0.5 IMMATURE GRANS (ABS) <0.10 k/uL 0.06 NRBC /100 WBC 0.0 Absolute nRBC <0.01 k/uL <0.01 <0.01 DTYPE Auto Nucleated Reds 0 /100 WBC 0.0 Diff Type Auto Diff Protein, Total 6.3 - 8.0 g/dL 7.0 7.2 6.6 Albumin 3.9 - 4.9 g/dL 3.8 (L) 4.0 3.9 Calcium 8.5 - 10.2 mg/dL 10.0 10.1 9.5 Bilirubin, Total 0.2 - 1.3 mg/dL 0.3 0.2 0.2 Alkaline Phosphatase 34 - 123 U/L 124 (H) 119 103 AST 13 - 35 U/L 17 20 20 Glucose 74 - 99 mg/dL 103 (H) 148 (H) 105 (H) BUN 7 - 21 mg/dL 21 20 22 (H) Creatinine 0.58 - 0.96 mg/dL 0.74 0.78 0.77 Sodium 136 - 144 mmol/L 138 140 138 Potassium 3.7 - 5.1 mmol/L 4.4 4.1 4.4 Chloride 97 - 105 mmol/L 104 104 103 CO2 22 - 30 mmol/L 21 (L) 23 23 Anion Gap 9 - 18 mmol/L 13 13 12 ALT 7 - 38 U/L 17 21 18 eGFR- >60 eGFR-All Other Races . 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 Chronic minor muscle aches Stomach complaints/ diarrhea Yes, chronic but currently not a problem. Occasionally 1-2 immodium tabs. Last 2 Lipids: Component Latest Ref Rng & Units 07/01/2018 06/05/2022 Cholesterol, Total <200 mg/dL 291 (H) 290 (H) Triglyceride <150 mg/dL 203 (H) 174 (H) HDL Cholesterol >39 mg/dL 62 48 LDL Cholesterol <100 mg/dL 188 (H) 207 (H) Non HDL Cholesterol <130 mg/dL 229 (H) 242 (H) Fasting Time hrs Unknown 13 VLDL Cholesterol <30 mg/dL 41 (H) 35 (H) TC:HDL Ratio <5.10 4.69 6.04 (H) LDL:HDL Ratio <2.54 3.03 (H) 4.31 (H) Type 2 diabetes mellitus with diabetic neuropathy, without long-term current use of insulin (hcc) Current medications: Metformin 500mg twice a day with meals Taking medication as directed consistently? Yes Medical Issues / Complications: hypertension and hyperlipidemia Checking blood sugars at home? No. Watching diet? Eating a variety of foods, not really watching. Physical Activity: Sedentary Hypoglycemic spells? No Any visual disturbance? No Chest pain? No New numbness, tingling or loss of sensation? No Any recent foot problems, sores or rashes? No Any recent or sudden weight loss? No Change in urination? No. Wears diapers constantly. Urinates only during sleep. Any recent illness? No Last eye exam: 1 year ago. Last foot exam: due. Hemoglobin A1C (%) Date Value 06/05/2022 5.8 09/26/2021 6.0 12/21/2020 5.8 12/08/2019 5.5 ) Polyneuropathy associated with underlying disease (hcc) Current medications: Hydrocodone 5-3 25 #28 1 tablet every 6 hours as needed for pain sparingly Camphor-methyl salicylate-menthol patch 3.1-10-6% daily as needed to site Tylenol arthritis 650 mg CR 2 capsules every 8 hours as needed Pain level is better, not as bad. Using Joice very sparingly. Myasthenia gravis (hcc) Pyridostigmine 60mg three times a day States taking 1/2 pill every 6h because that's all she needs, works well. Fatigue currently better Vitamin D3 2000u: 4000u daily confirmed. Component Latest Ref Rng & Units 12/18/2019 10/07/2021 Vitamin D 25 Hydroxy 31.0 - 80.0 ng/mL 58.1 30.4 (L) Allergic Rhinitis Chronic asthmatic bronchitis Current medications: Cromolyn sodium 4% 1 to 2 drops both eyes 4 times daily Fluticasone 50 MCG per actuation 2 sprays each nostril daily Budesonide-formoterol 2 puffs twice a day Albuterol HFA 90 MCG per actuation 2 puffs every 4 hours as needed Clariten D 5-120mg once a day usually works. 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 Interval history: no significant changes. . Worsening shortness of breath: Yes, with exertion: mostly lays around all day Cough: occasional. Wheezing: No. Smoking: No. Compliant with medications: Yes. Using rescue inhaler: has been using albuterol every 6h along with longacting as directed. Feels this is really helping. Otitis externa: Current medications: Neomy/polymyx/dexameth 3.5 mg/mL-10,000 unit/mL - 0.1% 1 to 2 drops as needed Seems to keep eczema controlled with intermittent use. Has been boithering due to weather changes Fibromyalgia Feeling better with warm weather Chronic stiffness and aching Weather changes Using Salon-pas with salicylate Not interested in additional medication Joint mostly left shoulder. Stopped tumeric and red pepper supplement: no change in pain in joint GERD Current medication: Omeprazole 20mg twice a day. Current symptoms: Has been better. 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 Heartburn is controlled: Yes. Dysphagia: no. Bloody or black stools: regular, once a day. Bowel changes: No. Last EGD and/or colonoscopy: ? Anxiety with depression Recurrent major depressive disorder, in partial remission (hcc) Current medications: Sertraline 100mg daily Feels she manages with this dose. Feeling more weak. Continues to bathe herself with wet wipes. Planning to get he hair cut so she doesn't have to wash it- uses wet wipes on hair as well. Last DXA 01/09/2019 WNL HISTORIES FAMILY HISTORY Problem Relation Age of Onset Hyperlipidemia Mother Macular Degen Mother other (tumor in chest) Mother Coronary Artery Disease Father CABG x 2 Hyperlipidemia Father Bipolar disorder Sister Hyperlipidemia Sister Hyperlipidemia Sister other (scleroderma) Sister Pancreatic Cancer Maternal Uncle Breast Cancer Maternal Aunt other (liver failure) Paternal Aunt other (Obstructive Sleep Apnea (aka LETTY)) Son 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) Major depression in partial remission (HCC) Myasthenia gravis (HCC) Peripheral neuropathy Type 2 diabetes mellitus (HCC) Vitamin D deficiency PAST SURGICAL HISTORY Procedure Laterality Date THYMECTOMY PRTL/TOT W/O RAD MEDSTNL DSJ SPX 1992 TOTAL ABDOMINAL HYSTERECT W/WO RMVL TUBE OVARY Social History Tobacco Use Smoking status: Former Smokeless tobacco: Never ACTIVE PROBLEM LIST Essential Hypertension Fibromyalgia Gerd (Gastroesophageal Reflux Disease) Mixed Hyperlipidemia Major Depression in Partial Remission (Hcc) Myasthenia Gravis (Hcc) Peripheral Neuropathy Type 2 Diabetes Mellitus With Diabetic Neuropathy, Without Long-Term Current Use of Insulin (Hcc) Anxiety Chronic Asthmatic Bronchitis (Hcc) Sandra (Iron Deficiency Anemia) Other Allergic Rhinitis Allergic Conjunctivitis of Both Eyes Anxiety With Depression Current Outpatient Medications Medication Sig Dispense Refill Cromolyn Sodium (CROLOM) 4 % ophthalmic solution Use 1-2 Drops in both eyes four times daily. 10 mL 3 CLARITIN-D 12 HOUR 5-120 mg per tablet Take 1 tablet by mouth twice daily. No generic requesting brand name 60 tablet 3 albuterol HFA (VENTOLIN HFA) 90 mcg/actuation inhaler Inhale 2 Puffs as instructed every 4 hours as needed. 18 g 2 Estradiol (ESTRACE) 0.5 mg tablet Take 1 tablet by mouth once daily. 90 tablet 1 montelukast (SINGULAIR) 10 mg tablet Take 1 tablet by mouth daily at bedtime. 90 tablet 3 sertraline (ZOLOFT) 100 mg tablet Take 1 tablet by mouth once daily. 90 tablet 3 SUMAtriptan (IMITREX) 100 mg tablet Take 1 tablet by mouth as needed. 18 tablet 3 HYDROcodone-acetaminophen (NORCO) 5-325 mg per tablet Take 1 tablet by mouth every 6 hours as needed for pain for up to 90 days. 33 tablet 0 fluticasone (FLONASE) 50 mcg/actuation nasal spray Use 2 Sprays in each nostril once daily. 18.2 mL 3 lisinopril (PRINIVIL) 20 mg tablet Take 1 tablet by mouth once daily. 90 tablet 1 Promethazine-DM (PHENERGAN-DM) 6.25-15 mg/5 mL syrup Take 5 mL by mouth four times daily as needed (not in same 12h as Clariten D). 120 mL 1 diphenoxylate-atropine (LOMOTIL) 2.5-0.025 mg per tablet Take 1 tablet by mouth four times daily as needed for up to 60 days. 60 tablet 3 pyridostigmine (MESTINON) 60 mg tablet Take 1 tablet by mouth three times daily as needed. (Patient taking differently: Take 30 mg by mouth four times daily.) 90 tablet 5 ondansetron (ZOFRAN) 4 mg tablet Take 1 tablet by mouth every 8 hours as needed. 30 tablet 1 budesonide-formoterol (SYMBICORT) 80-4.5 mcg/actuation inhaler Inhale 2 Puffs as instructed twice daily. 1 Each 5 budesonide-formoterol (SYMBICORT) 80-4.5 mcg/actuation inhaler Inhale 2 Puffs as instructed twice daily. 1 Each 11 neomycin/polymyxin b/dexametha(MAXITROL 3.5 MG/ML-10,000 UNIT/ML-0.1% EYE DROPS,SUSPENSION) 1-2 drops 3-4 times a day as needed for external otitis 10 mL 1 naproxen sodium (ANAPROX) 220 mg tablet Take 220 mg by mouth twice daily with meals. acetaminophen 650 mg CR tablet Take 650 mg by mouth every 8 hours as needed. OTC PRODUCT Instaflex Advanced Joint Support (collagen, turmeric, resveratrol, black peper, bosellia, hyaluronic acid) camphor-methyl salicyl-menthol (SALONPAS) 3.1-10-6 % ptmd Apply to affected area. As needed omeprazole (PRILOSEC) 20 mg capsule Take 1 capsule by mouth twice daily. 180 capsule 1 metFORMIN (GLUCOPHAGE) 500 mg tablet Take 1 tablet by mouth twice daily with meals. . 180 tablet 1 Cholecalciferol, Vitamin D3, 50 mcg (2,000 unit) cap Take 6,000 Units by mouth once daily. No current facility-administered medications for this visit. PNEUMOCOCCAL: 67+(1 - PCV) due on 1953 BP CONTROLLED (<130/80) Never done DTAP,TDAP,TD(1 - Tdap) Never done SHINGRIX VACCINE(1 of 2) Never done DILATED RETINAL EXAM due on 03/25/2022 COVID-19 VACCINE(5 - Pfizer series) due on 07/03/2022 COLORECTAL CANCER SCREENING due on 09/25/2022 EXAM: BP 116/70 Pulse 89 Ht 160 cm (5' 3) Wt 70.3 kg (155 lb) SpO2 97% BMI 27.46 kg/m Pleasant adult woman in no acute distress. Alert and oriented all spheres. Normal affect and cognition. Speech normal. No deficits to learning or comprehension. Skin warm, dry, pink to lips and nailbeds. Normal turgor. Respirations regular and unlabored. HEENT: NCAT. No scleral icterus or conjunctival injection. TM's clear. Nose and oropharynx free from injection or lesion. Oral membranes moist and pink. No cervical lymph nodes. Thyroid non-tender, no masses, or enlargement. Carotids pulses 2+/4+ without bruits. No JVD with HOB at 30 degrees. Chest is normal shape. Lungs are clear to all allison with good air exchange through out. HRRR without murmur or gallop. No lifts, heaves, or rubs. Extrem: No clubbing or cyanosis. Edema: none. Extremities are warm and pink with prompt capillary refill. ASSESSMENT/PLAN: 1. Essential hypertension - ICD9: 401.9, ICD10: I10 (primary diagnosis) - Controlled - Recommend home blood pressure monitoring, to bring results to next visit - Encouraged sodium restriction, DASH or Mediterranean diet - Recommend regular aerobic exercise - CBC + DIFF - COMP METABOLIC PANEL 2. Mixed hyperlipidemia - ICD9: 272.2, ICD10: E78.2 - Controlled - Counseled on healthy diet and regular exercise 3. Statin intolerance - ICD9: 995.27, ICD10: Z78.9 4. Type 2 diabetes mellitus with diabetic neuropathy, without long-term current use of insulin (HCC) - ICD9: 250.60, 357.2, ICD10: E11.40 - Controlled - Continue current medications - HGB A1C - COMP METABOLIC PANEL 5. Polyneuropathy associated with underlying disease (HCC) - ICD9: 357.4, ICD10: G63 Stable, actually improving on report today 6. Myasthenia gravis (HCC) - ICD9: 358.00, ICD10: G70.00 Stable, continue mestininon 7. Vitamin D deficiency - ICD9: 268.9, ICD10: E55.9 - VITAMIN D 25 HYDROXY - DXA-AXIAL SKELETON - COMP METABOLIC PANEL 8. Other allergic rhinitis - ICD9: 477.8, ICD10: J30.89 Controlled: actually doing better 9. Chronic asthmatic bronchitis (HCC) - ICD9: 493.20, ICD10: J44.9 - Moderate persistent asthma stable - Continue current medications - Avoidance of triggers recommended - doing better with compliance. 10. Chronic otitis externa of both ears, unspecified type - ICD9: 380.23, ICD10: H60.63 Stable on medication 11. Fibromyalgia - ICD9: 729.1, ICD10: M79.7 Currently feeling better. Continue meds 12. Gastroesophageal reflux disease, unspecified whether esophagitis present - ICD9: 530.81, ICD10: K21.9 - Discussed lifestyle modifications including losing weight, limiting caffeine, no meals three hours before sleep, and head of bed elevation - CBC + DIFF - COMP METABOLIC PANEL 13. Anxiety with depression - ICD9: 300.4, ICD10: F41.8 - CBC + DIFF - COMP METABOLIC PANEL 14. Chronic left shoulder pain - ICD9: 719.41, 338.29, ICD10: M25.512, G89.29 Has been exercising some and improving. 15. Asymptomatic postmenopausal status - ICD9: V49.81, ICD10: Z78.0 Check BMD - VITAMIN D 25 HYDROXY - DXA-AXIAL SKELETON 16. Thrombocytosis - ICD9: 238.71, ICD10: D75.839 Needs to be followed for trends, likely r/t smoking - CBC + DIFF 17. Neutrophilia - ICD9: 288.8, ICD10: D72.9 Needs to be followed for trends - CBC + DIFF 18. Chronic pain of both shoulders - ICD9: 719.41, 338.29, ICD10: M25.511, G89.29, M25.512 Limiting use, not daily - HYDROCODONE 5 MG-ACETAMINOPHEN 325 MG TABLET 19. Chronic hand pain, unspecified laterality - ICD9: 729.5, 338.29, ICD10: M79.643, G89.29 As above - HYDROCODONE 5 MG-ACETAMINOPHEN 325 MG TABLET 20. Nausea - ICD9: 787.02, ICD10: R11.0 - ONDANSETRON HCL 4 MG TABLET 21. Screening for colon cancer - ICD9: V76.51, ICD10: Z12.11 - FECAL OCCULT BLOOD TEST 22. Encounter for immunization - ICD9: V03.89, ICD10: Z23 - PNEUMOCOCCAL VACCINE (PREVNAR 20) F/u 3 months Beena Whitfield PA-C Some of this note may have been copied and pasted for the purpose of history context and comparison. documented in this encounter [facility] [place] 12-01-2022 Instructions Beena Whitfield PA-C - 12/01/2022 5:34 AM EDT BONE MINERAL DENSITY PATIENT INSTRUCTIONS ========= Bone mineral density testing measures the amount of calcium in certain parts of your bones. This information determines how strong your bones are. The test is used to detect osteoporosis, a disease in which the bone's mineral content and density are low, increasing a person's risk of fractures. The lumbar spine (lower back) and the hip are the skeletal sites usually examined. For the test, remember that: 1. You cannot take this test if you are . 2. Eat a normal diet on the day of the test. 3. Take your medications as you normally would. 4. DO NOT take calcium supplements (such as Tums) for 24 hours before the test. 5. On the day of the test, leave valuables (jewelry or credit cards) at home. 6. The test should be performed prior to oral, rectal or IV contrast studies, or at least 7 days after any of these studies. For the test, you may be asked to wear a hospital gown. You will lie on your back, on a padded table, in a comfortable position. Generally, you can resume your usual activities immediately. documented in this encounter [facility] 11-13-2022 Miscellaneous Notes SHAMA 09/03/22 NOV 11/30/22 Please review and advise. Thank you. OWEN Sadler pt also needing nausea med does not know the name Patient has been identified by name and date of : Yes Last office visit in this department: 09/03/2022 RX INSTRUCTIONS: Patient aware RX will be sent to pharmacy. No need to notify patient. Patient phones requesting refills as follows: Requested Prescriptions Pending Prescriptions Disp Refills Cromolyn Sodium (CROLOM) 4 % ophthalmic solution 10 mL 3 Sig: Use 1-2 Drops in both eyes four times daily. Please review and advise. Lauren Jacobs documented in this encounter [facility] 09-03-2022 History of Presen t illness Narrative 77 year old female with c/o here for 3 months follow up Essential hypertension (primary encounter diagnosis) Current meds: Lisinopril 20 mg daily Patient is compliant with meds Yes Monitors bp at home: No. If yes, readings: Denies side effects: Yes. Chest pain: No. Dyspnea: No. Edema: No. Palpitations: No. Syncope: No. Headache: Headaches worse worse with low pressure systems lately. Hard to determine cause: lays around all day, poor water intake, poor diet regulation. Dizziness: Yes. Attributes to MG. Not presyncopal. Lightheaded. Mixed hyperlipidemia Current medication Intolerant to statins Taking medication consistently n/a Observing low cholesterol high fiber diet Yes Muscle aches minor Stomach complaints/ diarrhea Yes Last 2 Lipids: Component Latest Ref Rng & Units 07/01/2018 06/05/2022 Cholesterol, Total <200 mg/dL 291 (H) 290 (H) Triglyceride <150 mg/dL 203 (H) 174 (H) HDL Cholesterol >39 mg/dL 62 48 LDL Cholesterol <100 mg/dL 188 (H) 207 (H) Non HDL Cholesterol <130 mg/dL 229 (H) 242 (H) Fasting Time hrs Unknown 13 VLDL Cholesterol <30 mg/dL 41 (H) 35 (H) TC:HDL Ratio <5.10 4.69 6.04 (H) LDL:HDL Ratio <2.54 3.03 (H) 4.31 (H) Type 2 diabetes mellitus with diabetic neuropathy, without long-term current use of insulin (hcc) Current medications: Metformin 500mg twice a day with meals Taking medication as directed consistently? Yes Medical Issues / Complications: hypertension and hyperlipidemia Checking blood sugars at home? No. Watching diet? Eating a variety of foods, not really watching. Physical Activity: Sedentary Hypoglycemic spells? No Any visual disturbance? No Chest pain? No New numbness, tingling or loss of sensation? No Any recent foot problems, sores or rashes? No Any recent or sudden weight loss? No Change in urination? No. Wears diapers constantly. Urinates only during sleep. Any recent illness? No Last eye exam: 1 year ago. Last foot exam: due. HBA1C: Hemoglobin A1C (%) Date Value 06/05/2022 5.8 09/26/2021 6.0 12/21/2020 5.8 12/08/2019 5.5 ) Polyneuropathy associated with underlying disease ([facility]) Current medications: Hydrocodone 5-3 25 #28 1 tablet every 6 hours as needed for pain sparingly Camphor-methyl salicylate-menthol patch 3.1-10-6% daily as needed to site Tylenol arthritis 650 mg CR 2 capsules every 8 hours as needed pain level is better, not as bad. Feels Myasthenia gravis ([facility]) Pyridostigmine 60mg three times a day States on taking twice a day because that's all she needs. Vitamin D3 2000u: 3000u daily confirmed. Allergic Rhinitis Chronic asthmatic bronchitis Current medications: Cromolyn sodium 4% 1 to 2 drops both eyes 4 times daily Fluticasone 50 MCG per actuation 2 sprays each nostril daily Budesonide-formoterol 2 puffs twice a day Albuterol HFA 90 MCG per actuation 2 puffs every 4 hours as needed Clariten D 5-120mg once a day usually works. 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 Interval history: no significant changes. . Worsening shortness of breath: Yes, with exertion: mostly lays around all day Cough: occasional. Wheezing: No. Smoking: No. Compliant with medications: Yes. Using rescue inhaler: occasional. Otitis externa: Current medications: Neomy/polymyx/dexameth 3.5 mg/mL-10,000 unit/mL - 0.1% 1 to 2 drops as needed Seems to keep eczema controlled with intermittent use. Fibromyalgia Worse than in fall last year. Chronic stiffness and aching Weather changes Using Salon-pas with salicylate Not interested in additional medication GERD Current medication: Omeprazole 20mg twice a day. Current symptoms: Has been better. Kt is cooking healthy meals for her instead of fast food Last Mg level if on PPI chronically: 10/07/2021 . Heartburn is controlled: Yes. Dysphagia: no. Bloody or black stools: regular, once a day. Bowel changes: No. Last EGD and/or colonoscopy: Anxiety with depression Recurrent major depressive disorder, in partial remission (hcc) Current medications: Sertraline 100mg daily Feels she manages with this dose. Feeling more weak. Continues to bathe herself with wet wipes. Planning to get he hair cut so she doesn't have to wash it- uses wet wipes on hair as well. Joint mostly left shoulder. Salanpas patches with ASA HISTORIES FAMILY HISTORY Problem Relation Age of Onset Hyperlipidemia Mother Macular Degen Mother other (tumor in chest) Mother Coronary Artery Disease Father CABG x 2 Hyperlipidemia Father Bipolar disorder Sister Hyperlipidemia Sister Hyperlipidemia Sister other (scleroderma) Sister Pancreatic Cancer Maternal Uncle Breast Cancer Maternal Aunt other (liver failure) Paternal Aunt other (Obstructive Sleep Apnea (aka LETTY)) Son 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) Major depression in partial remission (HCC) Myasthenia gravis (HCC) Peripheral neuropathy Type 2 diabetes mellitus (HCC) Vitamin D deficiency PAST SURGICAL HISTORY Procedure Laterality Date THYMECTOMY PRTL/TOT W/O RAD MEDSTNL DSJ SPX 1992 TOTAL ABDOMINAL HYSTERECT W/WO RMVL TUBE OVARY Social History Tobacco Use Smoking status: Former Smokeless tobacco: Never ACTIVE PROBLEM LIST Essential Hypertension Fibromyalgia Gerd (Gastroesophageal Reflux Disease) Mixed Hyperlipidemia Major Depression in Partial Remission (Hcc) Myasthenia Gravis (Hcc) Peripheral Neuropathy Type 2 Diabetes Mellitus With Diabetic Neuropathy, Without Long-Term Current Use of Insulin (Hcc) Anxiety Chronic Asthmatic Bronchitis (Hcc) Sandra (Iron Deficiency Anemia) Other Allergic Rhinitis Allergic Conjunctivitis of Both Eyes Anxiety With Depression Current Outpatient Medications Medication Sig Dispense Refill lisinopril (PRINIVIL) 20 mg tablet Take 1 tablet by mouth once daily. 90 tablet 1 SUMAtriptan (IMITREX) 100 mg tablet Take 1 tablet by mouth as needed. 15 tablet 3 Promethazine-DM (PHENERGAN-DM) 6.25-15 mg/5 mL syrup Take 5 mL by mouth four times daily as needed (not in same 12h as Clariten D). 120 mL 1 sertraline (ZOLOFT) 100 mg tablet Take 1 tablet by mouth once daily. 90 tablet 1 diphenoxylate-atropine (LOMOTIL) 2.5-0.025 mg per tablet Take 1 tablet by mouth four times daily as needed for up to 60 days. 60 tablet 3 HYDROcodone-acetaminophen (NORCO) 5-325 mg per tablet Take 1 tablet by mouth every 6 hours as needed for pain. 28 tablet 0 pyridostigmine (MESTINON) 60 mg tablet Take 1 tablet by mouth three times daily as needed. 90 tablet 5 montelukast (SINGULAIR) 10 mg tablet Take 1 tablet by mouth daily at bedtime. 90 tablet 1 ondansetron (ZOFRAN) 4 mg tablet Take 1 tablet by mouth every 8 hours as needed. 30 tablet 1 Estradiol (ESTRACE) 0.5 mg tablet Take 1 tablet by mouth once daily. 90 tablet 1 albuterol HFA (VENTOLIN HFA) 90 mcg/actuation inhaler Inhale 2 Puffs as instructed every 4 hours as needed. 18 g 2 budesonide-formoterol (SYMBICORT) 80-4.5 mcg/actuation inhaler Inhale 2 Puffs as instructed twice daily. 1 Each 5 CLARITIN-D 12 HOUR 5-120 mg per tablet Take 1 tablet by mouth twice daily. No generic requesting brand name 60 tablet 3 budesonide-formoterol (SYMBICORT) 80-4.5 mcg/actuation inhaler Inhale 2 Puffs as instructed twice daily. 1 Each 11 neomycin/polymyxin b/dexametha(MAXITROL 3.5 MG/ML-10,000 UNIT/ML-0.1% EYE DROPS,SUSPENSION) 1-2 drops 3-4 times a day as needed for external otitis 10 mL 1 naproxen sodium (ANAPROX) 220 mg tablet Take 220 mg by mouth twice daily with meals. acetaminophen 650 mg CR tablet Take 650 mg by mouth every 8 hours as needed. OTC PRODUCT Instaflex Advanced Joint Support (collagen, turmeric, resveratrol, black peper, bosellia, hyaluronic acid) camphor-methyl salicyl-menthol (SALONPAS) 3.1-10-6 % ptmd Apply to affected area. As needed omeprazole (PRILOSEC) 20 mg capsule Take 1 capsule by mouth twice daily. 180 capsule 1 fluticasone (FLONASE) 50 mcg/actuation nasal spray Use 2 Sprays in each nostril once daily. 18.2 mL 3 Cromolyn Sodium (CROLOM) 4 % ophthalmic solution Use 1-2 Drops in both eyes four times daily. 10 mL 3 metFORMIN (GLUCOPHAGE) 500 mg tablet Take 1 tablet by mouth twice daily with meals. . 180 tablet 1 Cholecalciferol, Vitamin D3, 50 mcg (2,000 unit) cap Take 6,000 Units by mouth once daily. No current facility-administered medications for this visit. PNEUMOCOCCAL: 65+(1 - PCV) due on 1951 DILATED RETINAL EXAM due on 03/25/2022 COLORECTAL CANCER SCREENING due on 09/25/2022 EXAM: BP 132/80 Pulse 91 Resp 16 Wt 66.7 kg (147 lb) SpO2 99% BMI 26.04 kg/m Pleasant well appearing adult woman in no acute distress. Alert and oriented all spheres. Normal affect and cognition. Speech normal. No deficits to learning or comprehension. Skin warm, dry, pink to lips and nailbeds. Normal turgor. Respirations regular and unlabored. HEENT: NCAT. No scleral icterus or conjunctival injection. TM's clear. Nose and oropharynx free from injection or lesion. Oral membranes moist and pink. No cervical lymph nodes. Thyroid non-tender, no masses, or enlargement. Carotids pulses 2+/4+ without bruits. No JVD with HOB at 30 degrees. Chest is normal shape. Lungs are clear to all allison with good air exchange through out. HRRR without murmur or gallop. No lifts, heaves, or rubs. Extrem: no clubbing or cyanosis. Edema: none. Extremities are warm and pink with prompt capillary refill. ASSESSMENT/PLAN: 1. Essential hypertension - ICD9: 401.9, ICD10: I10 (primary diagnosis) - good control - Recommended regular aerobic exercise. - Recommend home blood pressure monitoring, to bring results in on next visit - Goal of BP <130/80 - CBC + DIFF - COMP METABOLIC PANEL 2. Mixed hyperlipidemia - ICD9: 272.2, ICD10: E78.2 - good control - Continue current medication. - Encouraged following a low fat, low cholesterol diet. - COMP METABOLIC PANEL - LIPID PANEL BASIC - CK CREATINE KINASE 3. Type 2 diabetes mellitus with diabetic neuropathy, without long-term current use of insulin (HCC) - ICD9: 250.60, 357.2, ICD10: E11.40 - Controlled - Continue current medications - HGB A1C 4. Polyneuropathy associated with underlying disease (HCC) - ICD9: 357.4, ICD10: G63 Chronic pain 5. Myasthenia gravis (HCC) - ICD9: 358.00, ICD10: G70.00 Controlled on mestinon, stable 6. Chronic asthmatic bronchitis (HCC) - ICD9: 493.20, ICD10: J44.9 Mild persistent Asthma stable - Continue current meds - Avoidance of triggers recommended - ALBUTEROL SULFATE HFA 90 MCG/ACTUATION AEROSOL INHALER - MONTELUKAST 10 MG TABLET - FLUTICASONE PROPIONATE 50 MCG/ACTUATION NASAL SPRAY,SUSPENSION 7. Other allergic rhinitis - ICD9: 477.8, ICD10: J30.89 Continue meds 8. Chronic otitis externa of both ears, unspecified type - ICD9: 380.23, ICD10: H60.63 Stable: periodic us of Cortisporin 9. Vitamin D deficiency - ICD9: 268.9, ICD10: E55.9 Stable, supplements 10. Fibromyalgia - ICD9: 729.1, ICD10: M79.7 Persistent, chronic pain 11. Gastroesophageal reflux disease, unspecified whether esophagitis present - ICD9: 530.81, ICD10: K21.9 - Discussed lifestyle modifications including losing weight, limiting caffeine, no meals three hours before sleep, and head of bed elevation - COMP METABOLIC PANEL - LIPID PANEL BASIC 12. Anxiety - ICD9: 300.00, ICD10: F41.9 Controlled on medication, continue - SERTRALINE 100 MG TABLET 13. Recurrent major depressive disorder, in partial remission (HCC) - ICD9: 296.35, ICD10: F33.41 Stable, controlled. As above - CBC + DIFF - COMP METABOLIC PANEL 14. Anxiety with depression - ICD9: 300.4, ICD10: F41.8 asabove - SERTRALINE 100 MG TABLET - CBC + DIFF - COMP METABOLIC PANEL 15. Migraine with aura, not intractable, without status migrainosus - ICD9: 346.00, ICD10: G43.109 Educated on use: high risk more than 2 doses/ 24h - SUMATRIPTAN 100 MG TABLET 16. Chronic pain of both shoulders - ICD9: 719.41, 338.29, ICD10: M25.511, G89.29, M25.512 - HYDROCODONE 5 MG-ACETAMINOPHEN 325 MG TABLET 17. Chronic hand pain, unspecified laterality - ICD9: 729.5, 338.29, ICD10: M79.643, G89.29 - HYDROCODONE 5 MG-ACETAMINOPHEN 325 MG TABLET Beena Whitfield PA-C documented in this encounter [facility] 07-31-2022 Miscellaneous Notes Follow up scheduled 08/31/22 Patient has been identified by name and date of : Yes Requested Prescriptions Pending Prescriptions Disp Refills lisinopril (PRINIVIL) 20 mg tablet 90 tablet 1 Sig: Take 1 tablet by mouth once daily. SUMAtriptan (IMITREX) 100 mg tablet 15 tablet 3 Sig: Take 1 tablet by mouth as needed. RX INSTRUCTIONS: Patient aware RX will be sent to pharmacy. No need to notify patient. Gisella Carr documented in this encounter [facility] 07-06-2022 Miscellaneous Notes Patient has been identified by name and date of : Yes Requested Prescriptions Pending Prescriptions Disp Refills Promethazine-DM (PHENERGAN-DM) 6.25-15 mg/5 mL syrup 120 mL 1 Sig: Take 5 mL by mouth four times daily as needed (not in same 12h as Clariten D). RX INSTRUCTIONS: Patient aware RX will be sent to pharmacy. No need to notify patient. Gisella Carr documented in this encounter [facility] 06-23-2022 Miscellaneous Notes Images from the original note were not included. DAT approved and left message for patient friend kt who is noted in chart authorized Kamryn Lamar Ma Prior Authorization has been completed online at [employer] for machelle, will await response. BANKS- [id number] Please keep encounter open until final decision has been received and documented from insurance company. Kamryn Lamar MA documented in this encounter [facility] 06-05-2022 History of Presen t illness Narrative 77 year old female with c/o Slept 2 days solid, feeling better. Was fighting off something she thinks. More energy today. Breathing better today with walking. Either feels good or doesn't. Slid of bed onto floor, was able to get on knees and back into bed. Eating tamazight fries a lot- putting on weight. Doesn't ever check blood sugars. Bowels fine: only using immodium once in awhile. Usually has issues after mestinon. Mood most days is positive. Plays computer games a lot. Flares with MG with profound tiredness, weak feeling. No HISTORIES FAMILY HISTORY Problem Relation Age of Onset Hyperlipidemia Mother Macular Degen Mother other (tumor in chest) Mother Coronary Artery Disease Father CABG x 2 Hyperlipidemia Father Bipolar disorder Sister Hyperlipidemia Sister Hyperlipidemia Sister other (scleroderma) Sister Pancreatic Cancer Maternal Uncle Breast Cancer Maternal Aunt other (liver failure) Paternal Aunt other (Obstructive Sleep Apnea (aka LETTY)) Son 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) Major depression in partial remission (HCC) Myasthenia gravis (HCC) Peripheral neuropathy Type 2 diabetes mellitus (HCC) Vitamin D deficiency PAST SURGICAL HISTORY Procedure Laterality Date THYMECTOMY PRTL/TOT W/O RAD MEDSTNL DSJ SPX 1992 TOTAL ABDOMINAL HYSTERECT W/WO RMVL TUBE OVARY Social History Tobacco Use Smoking status: Former Smokeless tobacco: Never ACTIVE PROBLEM LIST Essential Hypertension Fibromyalgia Gerd (Gastroesophageal Reflux Disease) Mixed Hyperlipidemia Major Depression in Partial Remission (Hcc) Myasthenia Gravis (Hcc) Peripheral Neuropathy Type 2 Diabetes Mellitus With Diabetic Neuropathy, Without Long-Term Current Use of Insulin (Hcc) Anxiety Chronic Asthmatic Bronchitis (Hcc) Sandra (Iron Deficiency Anemia) Other Allergic Rhinitis Allergic Conjunctivitis of Both Eyes Anxiety With Depression Current Outpatient Medications Medication Sig Dispense Refill montelukast (SINGULAIR) 10 mg tablet Take 1 tablet by mouth daily at bedtime. 90 tablet 1 ondansetron (ZOFRAN) 4 mg tablet Take 1 tablet by mouth every 8 hours as needed. 30 tablet 1 Estradiol (ESTRACE) 0.5 mg tablet Take 1 tablet by mouth once daily. 90 tablet 1 albuterol HFA (VENTOLIN HFA) 90 mcg/actuation inhaler Inhale 2 Puffs as instructed every 4 hours as needed. 18 g 2 SUMAtriptan (IMITREX) 100 mg tablet Take 1 tablet by mouth as needed. 15 tablet 3 Promethazine-DM (PHENERGAN-DM) 6.25-15 mg/5 mL syrup Take 5 mL by mouth four times daily as needed (not in same 12h as Clariten D). 120 mL 1 budesonide-formoterol (SYMBICORT) 80-4.5 mcg/actuation inhaler Inhale 2 Puffs as instructed twice daily. 1 Each 5 pyridostigmine (MESTINON) 60 mg tablet Take 1 tablet by mouth three times daily as needed. 90 tablet 5 HYDROcodone-acetaminophen (NORCO) 5-325 mg per tablet Take 1 tablet by mouth every 6 hours as needed for pain. 28 tablet 0 CLARITIN-D 12 HOUR 5-120 mg per tablet Take 1 tablet by mouth twice daily. No generic requesting brand name 60 tablet 3 budesonide-formoterol (SYMBICORT) 80-4.5 mcg/actuation inhaler Inhale 2 Puffs as instructed twice daily. 1 Each 11 diphenoxylate-atropine (LOMOTIL) 2.5-0.025 mg per tablet Take 1 tablet by mouth four times daily as needed for up to 60 days. 60 tablet 3 sertraline (ZOLOFT) 100 mg tablet Take 1 tablet by mouth once daily. 90 tablet 1 neomycin/polymyxin b/dexametha(MAXITROL 3.5 MG/ML-10,000 UNIT/ML-0.1% EYE DROPS,SUSPENSION) 1-2 drops 3-4 times a day as needed for external otitis 10 mL 1 naproxen sodium (ANAPROX) 220 mg tablet Take 220 mg by mouth twice daily with meals. acetaminophen 650 mg CR tablet Take 650 mg by mouth every 8 hours as needed. OTC PRODUCT Instaflex Advanced Joint Support (collagen, turmeric, resveratrol, black peper, bosellia, hyaluronic acid) camphor-methyl salicyl-menthol (SALONPAS) 3.1-10-6 % ptmd Apply to affected area. As needed omeprazole (PRILOSEC) 20 mg capsule Take 1 capsule by mouth twice daily. 180 capsule 1 lisinopril (PRINIVIL) 20 mg tablet Take 1 tablet by mouth once daily. 90 tablet 1 fluticasone (FLONASE) 50 mcg/actuation nasal spray Use 2 Sprays in each nostril once daily. 18.2 mL 3 Cromolyn Sodium (CROLOM) 4 % ophthalmic solution Use 1-2 Drops in both eyes four times daily. 10 mL 3 metFORMIN (GLUCOPHAGE) 500 mg tablet Take 1 tablet by mouth twice daily with meals. . 180 tablet 1 Cholecalciferol, Vitamin D3, 50 mcg (2,000 unit) cap Take 6,000 Units by mouth once daily. No current facility-administered medications for this visit. PNEUMOCOCCAL: 67+(1 - PCV) due on 1951 DIABETIC FOOT EXAM due on 12/20/2021 URINE ALBUMIN:CREATININE RATIO due on 12/21/2021 LDL CHOLESTEROL due on 12/21/2021 DILATED RETINAL EXAM due on 03/25/2022 HBA1C due on 03/29/2022 ADVANCE DIRECTIVE DISCUSSION Never done EXAM: BP 120/74 Pulse 88 Resp 18 Wt 72.6 kg (160 lb) SpO2 97% BMI 28.34 kg/m Pleasant adult woman who appears a little healthier with weight gain. in no acute distress. Alert and oriented all spheres. Normal affect and cognition. Speech normal. No deficits to learning or comprehension. More talkative a nd energetic today. Skin warm, dry, pink to lips and nailbeds. Normal turgor. Respirations regular and unlabored. HEENT: NCAT. No scleral icterus or conjunctival injection. TM's clear. Nose and oropharynx free from injection or lesion. Oral membranes moist and pink. No cervical lymph nodes. Thyroid non-tender, no masses, or enlargement. Carotids pulses 2+/4+ without bruits. No JVD with HOB at 30 degrees. Chest is normal shape. Lungs are clear to all allison with good air exchange through out. HRRR without murmur or gallop. No lifts, heaves, or rubs. Extrem: no clubbing or cyanosis. Edema: none. Extremities are warm and pink with prompt capillary refill. Feet:Shoes and socks removed, No deformities, ulcers, calluses, normal distal pulses, and sensitive to 10 gm monofilament ASSESSMENT/PLAN: 1. Type 2 diabetes mellitus with diabetic neuropathy, without long-term current use of insulin (HCC) - ICD9: 250.60, 357.2, ICD10: E11.40 (primary diagnosis) Controlled. - Continue current medications - HGB A1C 2. Anxiety with depression - ICD9: 300.4, ICD10: F41.8 Stable, CPM - SERTRALINE 100 MG TABLET 3. Anxiety - ICD9: 300.00, ICD10: F41.9 Stable CPM - SERTRALINE 100 MG TABLET 4. Chronic diarrhea - ICD9: 787.91, ICD10: K52.9 - DIPHENOXYLATE-ATROPINE 2.5 MG-0.025 MG TABLET 5. Chronic pain of both shoulders - ICD9: 719.41, 338.29, ICD10: M25.511, G89.29, M25.512 Sparing use norco, no diversion suspected. - HYDROCODONE 5 MG-ACETAMINOPHEN 325 MG TABLET 6. Chronic hand pain, unspecified laterality - ICD9: 729.5, 338.29, ICD10: M79.643, G89.29 - HYDROCODONE 5 MG-ACETAMINOPHEN 325 MG TABLET 7. Myasthenia gravis (HCC) - ICD9: 358.00, ICD10: G70.00 Hasn't seen neuro: discussed need for periodic follow up - PYRIDOSTIGMINE BROMIDE 60 MG TABLET F/u 3 months- patient preference Beena Whitfield PA-C documented in this encounter [facility] 06-02-2022 Miscellaneous Notes Patient calls to cancel 3 month follow up because of dizziness d/t pain. Patient reports history of dizziness but this is worse d/t the pain. Nurse triage completed. Protocol recommends see provider within 2 weeks. Patient requested to schedule 3 month follow up that was cancelled. Rescheduled per request. Care advice reviewed. Reviewed red flag symptoms to go to ED for. Patient verbalizes understanding. Reason for Disposition Dizziness is a chronic symptom (recurrent or ongoing AND present > 4 weeks) Answer Assessment - Initial Assessment Questions 1. DESCRIPTION: A little dizzy. I am in pain and when I get pain I feel dizzy. I have had it before it is nothing new. Patient states, Call me a baby but I really just don't want to come out in the cold. 2. LIGHTHEADED: A little dizzy when standing. 3. VERTIGO: No 4. SEVERITY: - MILD: Feels slightly dizzy, but walking normally. 5. ONSET: this morning but has had it in the past 6. AGGRAVATING FACTORS: Pain 7. HEART RATE: No 8. CAUSE: Patient believes that it is related to pain that she is having. Patient says she is having a bad flare up of joint pain. 9. RECURRENT SYMPTOM: Yes occasionally gets like this. Patient reports that she feels like it is worse this time but thinks it is from joint pain with the anxiety from upcoming doctor appointment. 10. OTHER SYMPTOMS: No fever, chest pain, vomiting, diarrhea, or bleeding. Patient reports she is having SOB per her usual and anxiety per her usual intensified by doctor appointment. Protocols used: Dizziness - [id number] Patient had called and spoke with [facility] staff. Patient called cancelling her 3 month follow up stating that she was so dizzy she was going to fall over. [facility] staff transferred call, patient was no longer on the line. Tried to call caregivers number that was given to [facility] staff due to patient's phone not work. No answer on phone, left message for patient to call back and speak with a triage nurse. Audrey Carr RN documented in this encounter [facility] 05-14-2022 Miscellaneous Notes Scheduled 06/02/22 Patient has been identified by name and date of : Yes Patient phones for refill(s): Requested Prescriptions Pending Prescriptions Disp Refills montelukast (SINGULAIR) 10 mg tablet 90 tablet 1 Sig: Take 1 tablet by mouth daily at bedtime. Date of last office visit in primary care: 03/02/22 Last 2 Encounter Wt Readings: Date: Wt: 03/02/2022 67.9 kg (149 lb 12.8 oz) 10/07/2021 76.7 kg (169 lb) Previous labs/tests for medication: Not applicable Please advise. Thank you. Audrey Dennis documented in this encounter [facility] 05-08-2022 Miscellaneous Notes Patient has been identified by name and date of : Yes Last office visit in this department: Visit date not found RX INSTRUCTIONS: Patient aware RX will be sent to pharmacy. No need to notify patient. Patient phones requesting refills as follows: Requested Prescriptions Pending Prescriptions Disp Refills ondansetron (ZOFRAN) 4 mg tablet 30 tablet 1 Sig: Take 1 tablet by mouth every 8 hours as needed. Please review and advise. Lakshmi Paredes documented in this encounter [facility] 04-30-2022 Miscellaneous Notes Patient has been identified by name and date of : Yes Last office visit in this department: 03/02/2022 Labs-10/07/21 NOV-06/02/22 RX INSTRUCTIONS: Patient aware RX will be sent to pharmacy. No need to notify patient. Patient phones requesting refills as follows: Requested Prescriptions Pending Prescriptions Disp Refills Estradiol (ESTRACE) 0.5 mg tablet 90 tablet 1 Sig: Take 1 tablet by mouth once daily. albuterol HFA (VENTOLIN HFA) 90 mcg/actuation inhaler 18 g 2 Sig: Inhale 2 Puffs as instructed every 4 hours as needed. Please review and advise. Vanessa Ryan documented in this encounter [facility] 03-23-2022 Miscellaneous Notes Patient has been identified by name and date of : Yes Requested Prescriptions Pending Prescriptions Disp Refills SUMAtriptan (IMITREX) 100 mg tablet 15 tablet 3 Sig: Take 1 tablet by mouth as needed. Promethazine-DM (PHENERGAN-DM) 6.25-15 mg/5 mL syrup 120 mL 1 Sig: Take 5 mL by mouth four times daily as needed (not in same 12h as Clariten D). RX INSTRUCTIONS: Patient aware RX will be sent to pharmacy. No need to notify patient. Rosalina Clark MA Shama: 02/2022 Nov: 05/2022 Last refill: 10/2021 (imitrex) Patient has been identified by name and date of : Yes Requested Prescriptions Pending Prescriptions Disp Refills SUMAtriptan (IMITREX) 100 mg tablet 15 tablet 3 Sig: Take 1 tablet by mouth as needed. Promethazine-DM (PHENERGAN-DM) 6.25-15 mg/5 mL syrup 120 mL 1 Sig: Take 5 mL by mouth four times daily as needed (not in same 12h as Clariten D). RX INSTRUCTIONS: Patient aware RX will be sent to pharmacy. No need to notify patient. Francisca Lyon Pss documented in this encounter [facility] 03-02-2022 Miscellaneous Notes The following approved medication requests have been transmitted electronically. Requested Prescriptions Signed Prescriptions Disp Refills budesonide-formoterol (SYMBICORT) 80-4.5 mcg/actuation inhaler 1 Each 11 Sig: Inhale 2 Puffs as instructed twice daily. Authorizing Provider: Beena WHITFIELD PA-C Generic Symbicort is not covered, insurance stating Brand Symbicort is preferred. Please send new rx for brand to pharmacy. Ifrah Martinez LPN documented in this encounter [facility] 03-02-2022 History of Presen t illness Narrative 76 year old female with c/o here for follow up Essential hypertension (primary encounter diagnosis) Current meds: Lisinopril 20 mg daily Patient is compliant with meds Yes Monitors bp at home: No. If yes, readings: Denies side effects: Yes. Chest pain: No. Dyspnea: No. Edema: No. Palpitations: No. Syncope: No. Headache: on occasion- hard to determine cause: lays around all day, poor water intake, porrdiet regulation. Dizziness: Yes. Attributes to MG. Not presyncopal. Lightheaded. Last 3 Encounter BP Readings: Date: BP: 11/27/2021 124/66 10/07/2021 128/74 07/03/2021 120/57 Last 2 Encounter Wt Readings: Date: Wt: 10/07/2021 76.7 kg (169 lb) 04/01/2021 72.1 kg (159 lb) Mixed hyperlipidemia Current medication Intolerant to statins Taking medication consistently n/a Observing low cholesterol high fiber diet Yes Muscle aches minor Stomach complaints/ diarrhea Yes Last 2 Lipids: Component Latest Ref Rng & Units 12/08/2019 12/21/2020 Cholesterol, Total <200 mg/dL 285 (H) Triglyceride <150 mg/dL 185 (H) HDL Cholesterol >39 mg/dL 52 LDL Cholesterol <100 mg/dL 196 (H) Non HDL Cholesterol <130 mg/dL 233 (H) Fasting Time hrs 10 VLDL Cholesterol <30 mg/dL 37 (H) TC:HDL Ratio <5.10 5.48 (H) LDL:HDL Ratio <2.54 3.77 (H) Total Cholesterol, Nonfasting <200 mg/dL 267 (H) Triglycerides, Nonfasting <150 mg/dL 164 (H) HDL Cholesterol, Nonfasting >39 mg/dL 41 LDL Cholesterol, Nonfasting <100 mg/dL 193 (H) Non HDL Cholesterol, Nonfasting <130 mg/dL 226 (H) VLDL Cholesterol, Nonfasting <30 mg/dL 33 (H) Total Chol/HDL Ratio, Nonfasting <5.10 mg/dL 6.51 (H) LDL/HDL Ratio, Nonfasting <2.54 mg/dL 4.71 (H) Type 2 diabetes mellitus with diabetic neuropathy, without long-term current use of insulin (hcc) Current medications: Metformin 500mg twice a day with meals Taking medication as directed consistently? Yes Medical Issues / Complications: hypertension and hyperlipidemia Checking blood sugars at home? No. Watching diet? Eating a variety of foods, not really watching. Physical Activity: Sedentary Hypoglycemic spells? No Any visual disturbance? No Chest pain? No New numbness, tingling or loss of sensation? No Any recent foot problems, sores or rashes? No Any recent or sudden weight loss? No Change in urination? No. Wears diapers constantly. Urinates only during sleep. Any recent illness? No Last eye exam: 1 year ago. Last foot exam: due. HBA1C: Hemoglobin A1C (%) Date Value 09/26/2021 6.0 12/21/2020 5.8 12/08/2019 5.5 ) CMP: Glucose 148 09/26/2021 BUN 20 09/26/2021 Creatinine 0.78 09/26/2021 Sodium 140 09/26/2021 Potassium 4.1 09/26/2021 Chloride 104 09/26/2021 CO2 23 09/26/2021 Protein, Total 7.2 09/26/2021 Albumin 4.0 09/26/2021 Calcium 10.1 09/26/2021 Alkaline Phosphatase 119 09/26/2021 Bilirubin, Total 0.2 09/26/2021 AST 20 09/26/2021 ALT 21 09/26/2021 Last 2 Encounter Wt Readings: Date: Wt: 10/07/2021 76.7 kg (169 lb) 04/01/2021 72.1 kg (159 lb) Polyneuropathy associated with underlying disease (hcc) Current medications: Hydrocodone 5-3 25 #28 1 tablet every 6 hours as needed for pain sparingly Camphor-methyl salicylate-menthol patch 3.1-10-6% daily as needed to site Tylenol arthritis 650 mg CR 2 capsules every 8 hours as needed Myasthenia gravis (hcc) Pyridostigmine 60mg three times a day States on taking twice a day because that's all she needs. Vitamin D3 2000u: 3000u daily confirmed. Allergic Rhinitis Chronic asthmatic bronchitis Current medications: Cromolyn sodium 4% 1 to 2 drops both eyes 4 times daily Fluticasone 50 MCG per actuation 2 sprays each nostril daily Budesonide-formoterol 2 puffs twice a day Albuterol HFA 90 MCG per actuation 2 puffs every 4 hours as needed Clariten D 5-120mg once a day usually works. 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 Interval history: no significant changes. . Worsening shortness of breath: Yes, with exertion: mostly lays around all day Cough: occasional. Wheezing: No. Smoking: No. Compliant with medications: Yes. Using rescue inhaler: occasional. Otitis externa: Current medications: Neomy/polymyx/dexameth 3.5 mg/mL-10,000 unit/mL - 0.1% 1 to 2 drops as needed Seems to keep eczema controlled with intermittent use. Fibromyalgia Worse than in fall last year. Chronic stiffness and aching Weather changes Using Salon-pas with salicylate Not interested in additional medication GERD Current medication: Omeprazole 20mg twice a day. Current symptoms: Has been better. Last Mg level if on PPI chronically: 10/07/2021 . Heartburn is controlled: Yes. Dysphagia: no. Bloody or black stools: regular, once a day. Bowel changes: No. Last EGD and/or colonoscopy: 1.7. Anxiety with depression Recurrent major depressive disorder, in partial remission (hcc) Current medications: Sertraline 100mg daily Feels she manages with this dose. Continues to bathe herself with set wipes. Planning to get he hair cut so she doesn't have to wash it- uses wet wipes on hair as well. HISTORIES FAMILY HISTORY Problem Relation Age of Onset Hyperlipidemia Mother Macular Degen Mother other (tumor in chest) Mother Coronary Artery Disease Father CABG x 2 Hyperlipidemia Father Bipolar disorder Sister Hyperlipidemia Sister Hyperlipidemia Sister other (scleroderma) Sister Pancreatic Cancer Maternal Uncle Breast Cancer Maternal Aunt other (liver failure) Paternal Aunt other (Obstructive Sleep Apnea (aka LETTY)) Son 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) Major depression in partial remission (HCC) Myasthenia gravis (HCC) Peripheral neuropathy Type 2 diabetes mellitus (HCC) Vitamin D deficiency PAST SURGICAL HISTORY Procedure Laterality Date THYMECTOMY PRTL/TOT W/O RAD MEDSTNL DSJ SPX 1992 TOTAL ABDOMINAL HYSTERECT W/WO RMVL TUBE OVARY Social History Tobacco Use Smoking status: Former Smokeless tobacco: Never ACTIVE PROBLEM LIST Essential Hypertension Fibromyalgia Gerd (Gastroesophageal Reflux Disease) Mixed Hyperlipidemia Major Depression in Partial Remission (Hcc) Myasthenia Gravis (Hcc) Peripheral Neuropathy Type 2 Diabetes Mellitus With Diabetic Neuropathy, Without Long-Term Current Use of Insulin (Hcc) Anxiety Chronic Asthmatic Bronchitis (Hcc) Sandra (Iron Deficiency Anemia) Other Allergic Rhinitis Allergic Conjunctivitis of Both Eyes Anxiety With Depression Current Outpatient Medications Medication Sig Dispense Refill diphenoxylate-atropine (LOMOTIL) 2.5-0.025 mg per tablet Take 1 tablet by mouth four times daily as needed for up to 60 days. 60 tablet 3 Promethazine-DM (PHENERGAN-DM) 6.25-15 mg/5 mL syrup Take 5 mL by mouth four times daily as needed (not in same 12h as Clariten D). 120 mL 1 CLARITIN-D 12 HOUR 5-120 mg per tablet Take 1 tablet by mouth twice daily. No generic requesting brand name 60 tablet 3 ondansetron (ZOFRAN) 4 mg tablet Take 1 tablet by mouth every 8 hours as needed. 30 tablet 1 SUMAtriptan (IMITREX) 100 mg tablet Take 1 tablet by mouth as needed. 9 tablet 5 sertraline (ZOLOFT) 100 mg tablet Take 1 tablet by mouth once daily. 90 tablet 1 Estradiol (ESTRACE) 0.5 mg tablet Take 1 tablet by mouth once daily. 90 tablet 1 neomycin/polymyxin b/dexametha(MAXITROL 3.5 MG/ML-10,000 UNIT/ML-0.1% EYE DROPS,SUSPENSION) 1-2 drops 3-4 times a day as needed for external otitis 10 mL 1 montelukast (SINGULAIR) 10 mg tablet Take 1 tablet by mouth daily at bedtime. 90 tablet 1 naproxen sodium (ALEVE) 220 mg tablet Take 220 mg by mouth twice daily with meals. acetaminophen (TYLENOL ARTHRITIS PAIN) 650 mg CR tablet Take 650 mg by mouth every 8 hours as needed. OTC PRODUCT Instaflex Advanced Joint Support (collagen, turmeric, resveratrol, black peper, bosellia, hyaluronic acid) camphor-methyl salicyl-menthol (SALONPAS) 3.1-10-6 % ptmd Apply to affected area. As needed omeprazole (PRILOSEC) 20 mg capsule Take 1 capsule by mouth twice daily. 180 capsule 1 lisinopril (PRINIVIL) 20 mg tablet Take 1 tablet by mouth once daily. 90 tablet 1 HYDROcodone-acetaminophen (NORCO) 5-325 mg per tablet Take 1 tablet by mouth every 6 hours as needed for pain. 28 tablet 0 predniSONE (DELTASONE) 20 mg tablet Take 1 tablet by mouth once daily. 5 tablet 0 albuterol HFA (VENTOLIN HFA) 90 mcg/actuation inhaler Inhale 2 Puffs as instructed every 4 hours as needed. 18 g 2 budesonide-formoterol (SYMBICORT) 80-4.5 mcg/actuation inhaler Inhale 2 Puffs as instructed twice daily. 1 Each 5 fluticasone (FLONASE) 50 mcg/actuation nasal spray Use 2 Sprays in each nostril once daily. 18.2 mL 3 pyridostigmine (MESTINON) 60 mg tablet Take 1 tablet by mouth three times daily as needed. 90 tablet 5 Cromolyn Sodium (CROLOM) 4 % ophthalmic solution Use 1-2 Drops in both eyes four times daily. 10 mL 3 metFORMIN (GLUCOPHAGE) 500 mg tablet Take 1 tablet by mouth twice daily with meals. . 180 tablet 1 Cholecalciferol, Vitamin D3, (VITAMIN D-3) 2,000 unit cap Take 6,000 Units by mouth once daily. No current facility-administered medications for this visit. PNEUMOCOCCAL: 65+(1 - PCV) Never done MAMMOGRAM Never done ADVANCE DIRECTIVE DISCUSSION Never done COVID-19 VACCINE(4 - Booster for Pfizer series) due on 12/02/2021 DIABETIC FOOT EXAM due on 12/20/2021 URINE ALBUMIN:CREATININE RATIO due on 12/21/2021 LDL CHOLESTEROL due on 12/21/2021 INFLUENZA(1) due on 01/22/2022 DILATED RETINAL EXAM due on 03/25/2022 EXAM: BP 126/78 (BP Site: Left Arm, BP Position: Sitting, BP Cuff Size: Regular Adult) Pulse 84 Wt 67.9 kg (149 lb 12.8 oz) BMI 26.54 kg/m Pleasant in no acute distress. Alert and oriented all spheres. Normal affect and cognition. Speech normal. No deficits to learning or comprehension. Skin warm, dry, pink to lips and nailbeds. Normal turgor. No areas of skin breakdown. Respirations regular and unlabored. HEENT: NCAT. No scleral icterus or conjunctival injection. TM's clear. Nose and oropharynx free from injection or lesion. Oral membranes moist and pink. No cervical lymph nodes. Thyroid non-tender, no masses, or enlargement. Carotids pulses 2+/4+ without bruits. No JVD with HOB at 30 degrees. Extrem: no clubbing or cyanosis. Edema: none. Extremities are warm and pink with prompt capillary refill. ASSESSMENT/PLAN: 1. Essential hypertension - ICD9: 401.9, ICD10: I10 (primary diagnosis) - good control - Continue current medication(s) - Recommended regular aerobic exercise. - Recommend home blood pressure monitoring, to bring results in on next visit - Goal of BP <130/80 - COMP METABOLIC PANEL - CBC + DIFF 2. Mixed hyperlipidemia - ICD9: 272.2, ICD10: E78.2 - poor control: not interested in treatment or risk factor reduction. - Encouraged following a low fat, low cholesterol diet. - Discussed the benefits of regular aerobic exercise and weight loss. - LIPID PANEL BASIC 3. Type 2 diabetes mellitus with diabetic neuropathy, without long-term current use of insulin ([facility]) - ICD9: 250.60, 357.2, ICD10: E11.40 Controlled. - Continue current medications 4. Polyneuropathy associated with underlying disease ([facility]) - ICD9: 357.4, ICD10: G63 stable 5. Myasthenia gravis ([facility]) - ICD9: 358.00, ICD10: G70.00 Maintaining on medication. Has not seen neuro since 03/25/2021 - PYRIDOSTIGMINE BROMIDE 60 MG TABLET 6. Fibromyalgia - ICD9: 729.1, ICD10: M79.7 Persistent complaints 7. Anxiety with depression - ICD9: 300.4, ICD10: F41.8 Stable on medication 8. Recurrent major depressive disorder, in partial remission (HCC) - ICD9: 296.35, ICD10: F33.41 Stable on sertraline 9. Other allergic rhinitis - ICD9: 477.8, ICD10: J30.89 Controlled with current medications. 10. Chronic pain of both shoulders - ICD9: 719.41, 338.29, ICD10: M25.511, G89.29, M25.512 - HYDROCODONE 5 MG-ACETAMINOPHEN 325 MG TABLET - sparing use 11. Chronic hand pain, unspecified laterality - ICD9: 729.5, 338.29, ICD10: M79.643, G89.29 - HYDROCODONE 5 MG-ACETAMINOPHEN 325 MG TABLET 12. Need for influenza vaccination - ICD9: V04.81, ICD10: Z23 - INFLUENZA SEASONAL QUADRIVALENT HIGH DOSE AGE 65+ - INFLUENZA SEASONAL QUADRIVALENT HIGH DOSE AGE 65+ 13. Need for COVID-19 vaccine - ICD9: V04.89, ICD10: Z23 - PFIZER-BIONTECH COVID-19 BIVALENT BOOSTER VACCINE, AGE 12+ YR 14. Chronic asthmatic bronchitis (HCC) - ICD9: 493.20, ICD10: J44.9 Moderate persistent Asthma stable - Avoidance of triggers recommended Expressed concern about hygiene, in home care discussed: feels she is managing. Doesn't want to have to get used to someone else. Beena Whitfield PA-C Some of this note may have been copied and pasted for the purpose of history context and comparison. documented in this encounter [facility] 01-27-2022 Miscellaneous Notes Patient has been identified by name and date of : Yes Requested Prescriptions Pending Prescriptions Disp Refills diphenoxylate-atropine (LOMOTIL) 2.5-0.025 mg per tablet 60 tablet 3 Sig: Take 1 tablet by mouth four times daily as needed for up to 60 days. Promethazine-DM (PHENERGAN-DM) 6.25-15 mg/5 mL syrup 120 mL 0 Sig: Take 5 mL by mouth four times daily as needed. RX INSTRUCTIONS: Patient aware RX will be sent to pharmacy. No need to notify patient. [facility] signed by Ml [place]anez [facility] [place]27/2022 4:36 PM EDT documented in this encounter [facility] 01-06-2022 History of Presen t illness Narrative 12:23 PM Schedule was behind, patient left. Mailbox is full and cannot accept messages. Werner Whitfield PA-C documented in this encounter [facility] 01-06-2022 Miscellaneous Notes Patient states she does not feel good. Reports she missed VV with pcp because she vomited then went to bed. Reports he is helping her. States she doesn't feel like talking right now. Will call back to reschedule VV when she feels better. documented in this encounter [facility] 01-02-2022 Miscellaneous Notes Again mailbox is full. Encounter closed. Patient unable to be reached mailbox is full. The following approved medication requests have been transmitted electronically. Requested Prescriptions Signed Prescriptions Disp Refills Promethazine-DM (PHENERGAN-DM) 6.25-15 mg/5 mL syrup 120 mL 0 Sig: Take 5 mL by mouth four times daily as needed. Authorizing Provider: Beena WHITFIELD PA-C Patient phoned to get set up on [facility] in order to have her VV. Helped patient get the [facility], but nurse there is helping her set it up and unable to do this in time for today's VV. Re-scheduled VV with Werner only per patient request. They will call back when ready to learn how to manage the VV. Patient reports someone who visited her tested positive for covid, and yesterday she started with a sore throat, and now has a cough. Reports she is not feeling bad, and not interested in a VV to discuss taking paxlovid, but asking if Werner would send Rx for the cough medicine you prescribed for her a while ago. Patient doesn't remember what it was. documented in this encounter [facility] 11-19-2021 Miscellaneous Notes SHAMA: 10/07/2021 Last refill: 07/03/2021 QTY: 30 Refills: 1 Patient's request for medication is as follows: Pending Prescriptions Disp Refills ONDANSETRON HCL 4 MG TABLET 30 tablet 1 Sig: Take 1 tablet by mouth every 8 hours as needed. LUZ MARIA: No Please approve the above prescription(s) to electronically send to pharmacy. Bjorn White Ma Patient has been identified by name and date of : Yes Pending Prescriptions Disp Refills ONDANSETRON HCL 4 MG TABLET 30 tablet 1 Sig: Take 1 tablet by mouth every 8 hours as needed. LUZ MARIA: No RX INSTRUCTIONS: Patient aware RX will be sent to pharmacy. No need to notify patient. Hanane Roblero documented in this encounter [facility] 11-13-2021 Miscellaneous Notes Sumatriptan - She needs 15 for next month. She was given 4 extra last month and when she requested this month's meds she was given 4, but it should have been 15. Please review and send. Pharmacy verified in Epic Patient has been identified by name and date of : Yes Patient aware RX will be sent to pharmacy. No need to notify patient. Patient phones for refill(s): Pending Prescriptions Disp Refills SUMATRIPTAN 100 MG TABLET 0 Sig: Take 1 tablet by mouth as needed. LUZ MARIA: No SERTRALINE 100 MG TABLET 90 tablet 1 Sig: Take 1 tablet by mouth once daily. LUZ MARIA: No ESTRADIOL 0.5 MG TABLET 90 tablet 1 Sig: Take 1 tablet by mouth once daily. LUZ MARIA: No [id number] 3.5 MG/ML-10,000 UNIT/ML-0.1% EYE DROPS 10 mL 1 Si-2 drops 3-4 times a day as needed for external otitis LUZ MARIA: No Date of last office visit : 10/07/2021 Date of next office visit : 01/01/2022 Last 2 Encounter Wt Readings: Date: Wt: 10/07/2021 76.7 kg (169 lb) 04/01/2021 72.1 kg (159 lb) Please advise. Vanessa Rubi Pss documented in this encounter [facility] 10-28-2021 Miscellaneous Notes Please assist pt with scheduling follow up appt. Faheem Martinez LPN Attempted to reach pt. Mailbox full. Will try later. Mitzi Lyon LPN Attempted to reach pt but mailbox is full. Try later. Mitzi Lyon LPN New prescription is sent. 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 Gayathri Rainey APRN.LEIGH Patient spilled hot coffee on her medication and needs to have it filled 9 days before her next one is actually due. Insurance is refusing to pay for it before the 9 days according to patient/pharmacy. Patient would like to know if this is a medication she can skip for a while. If not, she would like a new script called into the pharmacy on file as it is due to be renewed. Pharmacy verified in [facility] Patient has been identified by name and date of : Yes Patient aware RX will be sent to pharmacy. No need to notify patient. Patient phones for refill(s): Pending Prescriptions Disp Refills MONTELUKAST 10 MG TABLET 90 tablet 1 Sig: Take 1 tablet by mouth daily at bedtime. LUZ MARIA: No Date of last office visit : 10/07/2021 Date of next office visit : 01/01/2022 Last 2 Encounter Wt Readings: Date: Wt: 10/07/2021 76.7 kg (169 lb) 04/01/2021 72.1 kg (159 lb) Not applicable Please advise. Vanessa Paredes documented in this encounter [facility] 10-07-2021 Instructions M Sergio Whitfield PA-C - 10/07/2021 8:28 AM EDT WHAT YOU CAN DO TO PREVENT FALLS Many falls can be prevented. By making some changes, you can lower your chances of falling. Four things YOU can do to prevent falls for you* and your caregiver 1. Begin a regular exercise program Exercise is one of the most important ways to lower your chances of falling. It makes you stronger and helps you feel better. Exercises that improve balance and coordination (like Chava Chi) are the most helpful. Lack of exercise leads to weakness and increases your chances of falling. Ask your doctor or health care provider about the best type of exercise program for you. 2. Have your health care provider review your medicines Have your doctor or pharmacist review all the medicines you take, even [id number] medicines. As you get older, the way medicines work in your body can change. Some medicines, or combinations of medicines, can make you sleepy or dizzy and can cause you to fall. 3. Have your vision checked Have your eyes checked by an eye doctor at least once a year. You may be wearing the wrong glasses or have a condition like glaucoma or cataracts that limits your vision. Poor vision can increase your chances of falling. 4. Make your home safer About half of all falls happen at home. To make your home safer: Remove things you can trip over (like papers, books, clothes, and shoes) from stairs and places where you walk. Remove small throw rugs or use double-sided tape to keep the rugs from slipping. Keep items you use often in cabinets you can reach easily without using a step stool. Have grab bars put in next to your toilet and in the tub or shower. Use non-slip mats in the bathtub and on shower floors. Improve the lighting in your home. As you get older, you need brighter lights to see well. Hang light-weight curtains or shades to reduce glare. Have handrails and lights put in on all staircases. Wear shoes both inside and outside the house. Avoid going barefoot or wearing slippers. For more information, contact: Centers for Disease Control and Prevention [phone] www.cdc.gov/injury * This information may not apply if you have certain medical conditions. documented in this encounter [facility] 10-07-2021 History of Presen t illness Narrative 76 year old female with c/o Welcome to Medicare Annual wellness Grace Rush is a 76 year old female who present today for SUBSEQUENT AWV I have reviewed the Risk Assessment filled out by the patient. 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) Major depression in partial remission (HCC) Myasthenia gravis (HCC) Peripheral neuropathy Type 2 diabetes mellitus (HCC) Vitamin D deficiency PAST SURGICAL HISTORY Procedure Laterality Date THYMECTOMY PRTL/TOT W/O RAD MEDSTNL DSJ SPX 1992 TOTAL ABDOMINAL HYSTERECT W/WO RMVL TUBE OVARY FAMILY HISTORY Problem Relation Age of Onset Hyperlipidemia Mother Macular Degen Mother other (tumor in chest) Mother Coronary Artery Disease Father CABG x 2 Hyperlipidemia Father Bipolar disorder Sister Hyperlipidemia Sister Hyperlipidemia Sister other (scleroderma) Sister Pancreatic Cancer Maternal Uncle Breast Cancer Maternal Aunt other (liver failure) Paternal Aunt other (Obstructive Sleep Apnea (aka LETTY)) Son Current Outpatient Medications Medication Sig SUMAtriptan (IMITREX) 100 mg tablet Take 1 tablet by mouth as needed. predniSONE (DELTASONE) 20 mg tablet Take 1 tablet by mouth once daily. Promethazine-DM (PHENERGAN-DM) 6.25-15 mg/5 mL syrup Take 5 mL by mouth four times daily as needed. SUMAtriptan (IMITREX) 100 mg tablet Take 1 tablet by mouth as needed. albuterol HFA (VENTOLIN HFA) 90 mcg/actuation inhaler Inhale 2 Puffs as instructed every 4 hours as needed. HYDROcodone-acetaminophen (NORCO) 5-325 mg per tablet Take 1 tablet by mouth every 6 hours as needed for pain. diphenoxylate-atropine (LOMOTIL) 2.5-0.025 mg per tablet Take 1 tablet by mouth four times daily as needed for up to 60 days. sertraline (ZOLOFT) 100 mg tablet Take 1 tablet by mouth once daily. Estradiol (ESTRACE) 0.5 mg tablet Take 1 tablet by mouth once daily. ondansetron (ZOFRAN) 4 mg tablet Take 1 tablet by mouth every 8 hours as needed. budesonide-formoterol (SYMBICORT) 80-4.5 mcg/actuation inhaler Inhale 2 Puffs as instructed twice daily. CLARITIN-D 12 HOUR 5-120 mg per tablet Take 1 tablet by mouth twice daily. No generic requesting brand name fluticasone (FLONASE) 50 mcg/actuation nasal spray Use 2 Sprays in each nostril once daily. pyridostigmine (MESTINON) 60 mg tablet Take 1 tablet by mouth three times daily as needed. neomycin/polymyxin b/dexametha(MAXITROL 3.5 MG/ML-10,000 UNIT/ML-0.1% EYE DROPS,SUSPENSION) 1-2 drops 3-4 times a day as needed for external otitis montelukast (SINGULAIR) 10 mg tablet Take 1 tablet by mouth daily at bedtime. lisinopril (PRINIVIL) 20 mg tablet Take 1 tablet by mouth once daily. omeprazole (PRILOSEC) 20 mg capsule Take 1 capsule by mouth twice daily. Cromolyn Sodium (CROLOM) 4 % ophthalmic solution Use 1-2 Drops in both eyes four times daily. metFORMIN (GLUCOPHAGE) 500 mg tablet Take 1 tablet by mouth twice daily with meals. . Cholecalciferol, Vitamin D3, (VITAMIN D-3) 2,000 unit cap Take 6,000 Units by mouth once daily. No current facility-administered medications for this visit. Allergy: Horse Dander SOCIAL HISTORY: Patient is single. She smokes 1.5 ppd for 20 years. Grace reports her alcohol use as never. Grace is more or less sedentary occasionally exercising in the form of walking. She watches her diet for sodium, low fat and low cholesterol most of the time, generally not very much. Depression screening PHQ-9 10/07/2021 Score 9 Functional Ability/Safety Screen 1. Was the patient's timed Up and Go test unsteady or longer than 30 seconds? No I have reviewed functional ability and level of safety. Hearing impairment Activities of daily living Falls, risk Home safety 2. Does the patient need help with the phone, transportation, shopping, preparing meals, housework, laundry, medications or managing money? No Has help with male friend. 3. Does your home have rungs in the hallway, lack of grab bars in the bathroom, lack of handrails on the stairs or have poor lighting? Yes doesn't use bathtub: bathes with wipes. Hearing Evaluation: within normal limits and hard of hearing Other factors as appropriate for medical and social history There were no vitals taken for this visit. No weight on file for this encounter. Discussed the patient's BMI with her. The BMI is above average; BMI management plan is completed. Visual acuity: see recent ophthalmology notes 76 year old female - Fall avoidance - Lipid panel - Fasting Blood sugar YES reviewed current list of providers involved in patient care; discussed with patient Detection Cognitive Impairment Direct observation from the information obtained by patient and concerns from family or care takers. 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 If yes, readings: Denies side effects: No. Chest pain: No. Dyspnea: No. Edema: No. Palpitations: No. Syncope: No. Headache: No. Dizziness: No. Last 3 Encounter BP Readings: Date: BP: 07/03/2021 120/57 04/01/2021 130/72 12/20/2020 140/72 Last 2 Encounter Wt Readings: Date: Wt: 04/01/2021 72.1 kg (159 lb) 12/20/2020 73 kg (161 lb) Mixed hyperlipidemia Current medication none Taking medication consistently No, intolerant to statins Observing low cholesterol high fiber diet No Muscle aches chronic Stomach complaints/ diarrhea chronic diarrhea Last 2 Lipids: Component Latest Ref Rng & Units 12/08/2019 12/21/2020 Cholesterol, Total <200 mg/dL 285 (H) Triglyceride <150 mg/dL 185 (H) HDL Cholesterol >39 mg/dL 52 LDL Cholesterol <100 mg/dL 196 (H) Non HDL Cholesterol <130 mg/dL 233 (H) Fasting Time hrs 10 VLDL Cholesterol <30 mg/dL 37 (H) TC:HDL Ratio <5.10 5.48 (H) LDL:HDL Ratio <2.54 3.77 (H) Total Cholesterol, Nonfasting <200 mg/dL 267 (H) Triglycerides, Nonfasting <150 mg/dL 164 (H) HDL Cholesterol, Nonfasting >39 mg/dL 41 LDL Cholesterol, Nonfasting <100 mg/dL 193 (H) Non HDL Cholesterol, Nonfasting <130 mg/dL 226 (H) VLDL Cholesterol, Nonfasting <30 mg/dL 33 (H) Total Chol/HDL Ratio, Nonfasting <5.10 mg/dL 6.51 (H) LDL/HDL Ratio, Nonfasting <2.54 mg/dL 4.71 (H) Type 2 diabetes mellitus with diabetic neuropathy, without long-term Current medications: metformin 500mg twice daily with meals Taking medication as directed consistently? No Medical Issues / Complications: hypertension, hyperlipidemia and peripheral neuropathy Checking blood sugars at home? No. Watching diet? No Physical Activity: Sedentary Hypoglycemic spells? No Any visual disturbance? No Chest pain? No New numbness, tingling or loss of sensation? No Any recent foot problems, sores or rashes? No Any recent or sudden weight loss? No Change in urination? No. If yes: Any recent illness? No Last eye exam: March: no retinopathy. Last foot exam: up to date. HBA1C: Hemoglobin A1C (%) Date Value 09/26/2021 6.0 12/21/2020 5.8 12/08/2019 5.5 ) CMP: Glucose 148 09/26/2021 BUN 20 09/26/2021 Creatinine 0.78 09/26/2021 Sodium 140 09/26/2021 Potassium 4.1 09/26/2021 Chloride 104 09/26/2021 CO2 23 09/26/2021 Protein, Total 7.2 09/26/2021 Albumin 4.0 09/26/2021 Calcium 10.1 09/26/2021 Alkaline Phosphatase 119 09/26/2021 Bilirubin, Total 0.2 09/26/2021 AST 20 09/26/2021 ALT 21 09/26/2021 Last 2 Encounter Wt Readings: Date: Wt: 04/01/2021 72.1 kg (159 lb) 12/20/2020 73 kg (161 lb) Myasthenia gravis (hcc) Current medications: pyridostigmine 60mg three times daily Anxiety with depression: see Medicare Wellness check Current medications: Sertraline 100mg daily Chronic diarrhea Went months without diarrhea and last 2-3 days started. Takes 2 multisymptom Immodium AD and on Lomotil- has done this 3 times in last 24 hours. Allergic rhinitis Allergic conjunctivitis both eyes Chronic asthmatic bronchitis (hcc) Cat in house from friend's daughter who moved in for the summer. Current medications: Montelukast 10 mg daily Budesonide formoterol 80 4 0.5 MCG 2 puffs twice daily Albuterol HFA 90 MCG/ actuation2 puffs every 4 hours as needed Cromolyn sodium 4% ophthalmic solution Flonase 50 MCG per actuation 2 sprays each nostril daily Claritin daily 12-hour 5-120 mg twice daily Chronic pain of both shoulders Chronic hand pain, unspecified laterality Fibromyalgia Current medications: Joice 5/325mg Migraine with aura, not intractable, without status migrainosus Current medications: Sumatriptan 100 mg daily as needed None lately. More in winter. Proactively takes sumatriptan so usually doesn't get headaches at bad level Seems to relax her and lkind of a sedative. Gastroesophageal reflux disease, unspecified whether esophagitis present Current medication: Omeprazole 20 mg twice daily. Current symptoms: still some break through if tomato sauce or foods that aggravate. Using TUMS about 2-3 times a well. Last Mg level if on PPI chronically: none. Heartburn is controlled: No. Dysphagia: No. Bloody or black stools: No. Bowel changes: No. Polyneuropathy associated with underlying disease ([facility]) Stable Vit D Deficiency Takes Vit D3 6000u daily ASSESSMENT/PLAN: 1. Essential hypertension - ICD9: 401.9, ICD10: I10 (primary diagnosis) - good control - Continue current medication(s) - Recommended regular aerobic exercise. - Recommend home blood pressure monitoring, to bring results in on next visit - Goal of BP <130/80 - CBC - LISINOPRIL 20 MG TABLET 2. Mixed hyperlipidemia - ICD9: 272.2, ICD10: E78.2 - poor control 10 CVR Score 34%, reviewed implications: declines consult for alternatives to statins - Encouraged following a low fat, low cholesterol diet. - Discussed the benefits of regular aerobic exercise and weight loss. - Encouraged following a low carbohydrate, healthy oil intake diet. 3. Type 2 diabetes mellitus with diabetic neuropathy, without long-term current use of insulin ([facility]) - ICD9: 250.60, 357.2, ICD10: E11.40 Controlled. - Continue current medications - CBC - ALBUMIN/CREAT RATIO RND UR 4. Myasthenia gravis (HCC) - ICD9: 358.00, ICD10: G70.00 stable 5. Anxiety with depression - ICD9: 300.4, ICD10: F41.8 Stable - CBC 6. Chronic diarrhea - ICD9: 787.91, ICD10: K52.9 Persistent, intermittent 7. Chronic asthmatic bronchitis (HCC) - ICD9: 493.20, ICD10: J44.9 Mild intermittent Asthma stable improved with recent steroids. Continue meds 8. Chronic pain of both shoulders - ICD9: 719.41, 338.29, ICD10: M25.511, G89.29, M25.512 Sparing use, no indicatoin of diversion. - HYDROCODONE 5 MG-ACETAMINOPHEN 325 MG TABLET 9. Chronic hand pain, unspecified laterality - ICD9: 729.5, 338.29, ICD10: M79.643, G89.29 - HYDROCODONE 5 MG-ACETAMINOPHEN 325 MG TABLET 10. Fibromyalgia - ICD9: 729.1, ICD10: M79.7 persistent 11. Migraine with aura, not intractable, without status migrainosus - ICD9: 346.00, ICD10: G43.109 Intermittent, manages well with current medication 12. Gastroesophageal reflux disease, unspecified whether esophagitis present - ICD9: 530.81, ICD10: K21.9 - Discussed lifestyle modifications including losing weight, limiting caffeine, no meals three hours before sleep and head of bed elevation - MAGNESIUM BLD 13. Polyneuropathy associated with underlying disease ([facility]) - ICD9: 357.4, ICD10: G63 stable 14. Other allergic rhinitis - ICD9: 477.8, ICD10: J30.89 Stable with medication 17. Vitamin D deficiency - ICD9: 268.9, ICD10: E55.9 - VITAMIN D 25 HYDROXY 18. Allergic conjunctivitis of both eyes - ICD9: 372.14, ICD10: H10.13 19. Abnormality of gait - ICD9: 781.2, ICD10: R26.9 - FALLS RISK EDUCATION 20. Falling episodes - ICD9: 781.99, E888.9, ICD10: R29.6 - FALLS RISK EDUCATION 21. Need for COVID-19 vaccine - ICD9: V04.89, ICD10: Z23 - PFIZER-BIONTECH COVID-19 VACCINE, AGE 12+ YR ([facility]) F/u 3 months Beena Whitfield PA-C documented in this encounter [facility] 09-11-2021 Miscellaneous Notes Pt called and is notified of providers results and instructions. Pt voices understanding. Miesha Bernal RN Unable to reach patient. Left VM to return call to office. Please read below and advise. Adrienne Rose MA. Addended by: Beena WHITFIELD on: 09/11/2021 11:34 AM Modules accepted: Orders She hasn't completed labs since November 2020. I have no idea what her blood sugars are and therefore will prescribe only very low dose prednisone. Hold clariten while on cough medication. The following approved medication requests have been transmitted electronically. Signed Prescriptions Disp Refills SUMAtriptan (IMITREX) 100 mg tablet 4 tablet 0 Sig: Take 1 tablet by mouth as needed. LUZ MARIA: No predniSONE (DELTASONE) 20 mg tablet 5 tablet 0 Sig: Take 1 tablet by mouth once daily. Promethazine-DM (PHENERGAN-DM) 6.25-15 mg/5 mL syrup 120 mL 0 Sig: Take 5 mL by mouth four times daily as needed. Beena Whitfield PA-C Pt. Notified. Patient requesting Prednisone & a cough suppressant as well. Patient states she feels she needs a boost to be able to shake cough. Declines OV at this time but states she will come in Wednesday if she's not better. Werner please review & advise. The following approved medication requests have been transmitted electronically. Signed Prescriptions Disp Refills SUMAtriptan (IMITREX) 100 mg tablet 4 tablet 0 Sig: Take 1 tablet by mouth as needed. LUZ MARIA: No Beena Whitfield PA-C Pt also report that when she started getting sick she took so many of her Imitrex that she is not able to refill her prescription yet and is asking if the provider will send in 4 tablet to get her through. Patient has been identified by name and date of : Yes Patient phones for refill(s): Pending Prescriptions Disp Refills SUMATRIPTAN 100 MG TABLET 4 tablet 0 Sig: Take 1 tablet by mouth as needed. LUZ MARIA: No Date of last office visit in primary care: 04/01/21 Future visit: 09/30/21 Last 2 Encounter Wt Readings: Date: Wt: 04/01/2021 72.1 kg (159 lb) 12/20/2020 73 kg (161 lb) Previous labs/tests for medication: Blood Pressure: BUN (mg/dL) Date Value 12/21/2020 21 Sodium (mmol/L) Date Value 12/21/2020 138 Last 1 Encounter BP Readings: Date: BP: 07/03/2021 120/57 Liver Function: ALT (U/L) Date Value 12/21/2020 17 AST (U/L) Date Value 12/21/2020 17 Please advise. Thank you. Miesha Bernal RN Protocol recommends see provider in 4 hours. Pt reports she is not coming in, she wants provider to order her prednisone and states if she is not better by Wednesday she will come in. She states PCP knows her well enough that he will do this. Will let provider know. Care plan reviewed with patient. Patient voices understanding. Advised patient that if symptoms get worse to be evaluated in Urgent Care or ER. Reason for Disposition [1] MILD difficulty breathing (e.g., minimal/no SOB at rest, SOB with walking, pulse <100) AND [2] still present when not coughing Answer Assessment - Initial Assessment Questions 1. ONSET: The cough began 09/05/21. 2. SEVERITY: Pt reports the cough is better than it was, but reports it's not going to go away when it settles in her chest. 3. SPUTUM: Pt reports it's thick pale yellow, and she is bringing up a small amount. 4. HEMOPTYSIS: Pt denies coughing up any blood. 5. DIFFICULTY BREATHING: - MILD: No SOB at rest, mild SOB with walking, speaks normally in sentences, can lay down, no retractions, pulse < 100. - MODERATE: SOB at rest, SOB with minimal exertion and prefers to sit, cannot lie down flat, speaks in phrases, mild retractions, audible wheezing, pulse 100-120. - SEVERE: Very SOB at rest, speaks in single words, struggling to breathe, sitting hunched forward, retractions, pulse > 120 Pt reports her usual difficulty breathing which is mild, but when she exerts herself it becomes severe, she states she is gasping for breath, her pulse goes way up. 6. FEVER: Pt does not know, but does not think so. 7. CARDIAC HISTORY: Pt denies any history of heart disease like heart attack or congestive heart failure. 8. LUNG HISTORY: Pt had a pulmonary embolus in 2000 on Coumadin for 6 months to a year. Pt denies asthma or emphysema but does not know 9. PE RISK FACTORS: Pt has history of PEs. Pt denies recent major surgery or recent prolonged travel. Pt states she is bedridden, she is encouraged to get up up finds it easier not to get up. 10. OTHER SYMPTOMS: Pt denies runny nose and chest pain. Pt reports wheezing, chest congestion, headache, ear ache, and L sinus hurts. 11. : Postmenopausal 12. TRAVEL: Pt denies traveling out of the country in the last month or exposures. Protocols used: COUGH - ACUTE [id number] documented in this encounter [facility] 08-29-2021 Miscellaneous Notes Patient is stating that she is getting a headache and if she does not take she will get a migraine . Francisca Lyon Pss documented in this encounter [facility] 07-03-2021 Miscellaneous Notes Pt reports she is having a bad day it took her a long time to get into the car, but they are on the way and will be here. Miesha Bernal RN documented in this encounter [facility] Evaluation note Diagnosis Migraine with aura, not intractable, without status migrainosus [facility] Diagnosis Migraine with aura, not intractable, without status migrainosus [facility] Essential hypertension- Primary Unspecified essential hypertension Mixed hyperlipidemia Type 2 diabetes mellitus with diabetic neuropathy, without long-term current use of insulin ([facility]) Myasthenia gravis (HCC) Myasthenia gravis without exacerbation Anxiety with depression Chronic diarrhea Diarrhea Chronic asthmatic bronchitis (HCC) Chronic obstructive asthma, unspecified Chronic pain of both shoulders Pain in joint, shoulder region Chronic hand pain, unspecified laterality Fibromyalgia Mylagia and myositis, unspecified Migraine with aura, not intractable, without status migrainosus Gastroesophageal reflux disease, unspecified whether esophagitis present Polyneuropathy associated with underlying disease (HCC) Medicare annual wellness visit, subsequent Routine general medical examination at a health care facility Other allergic rhinitis Vitamin D deficiency Unspecified vitamin D deficiency Allergic conjunctivitis of both eyes Other chronic allergic conjunctivitis Abnormality of gait Falling episodes Lack of coordination Need for COVID-19 vaccine [facility] Diagnosis Chronic asthmatic bronchitis (HCC) Chronic obstructive asthma, unspecified [facility] Diagnosis Migraine with aura, not intractable, without status migrainosus Anxiety with depression Anxiety Anxiety state, unspecified [facility] Diagnosis Nausea Nausea alone [facility] Diagnosis Encounter for screening mammogram for breast cancer documented [facility]* Diagnosis Essential hypertension- Primary Unspecified essential hypertension Mixed hyperlipidemia Type 2 diabetes mellitus with diabetic neuropathy, without long-term current use of insulin (HCC) Polyneuropathy associated with underlying disease (HCC) Myasthenia gravis (HCC) Myasthenia gravis without exacerbation Fibromyalgia Mylagia and myositis, unspecified Chronic asthmatic bronchitis (HCC) Chronic obstructive asthma, unspecified Anxiety with depression Recurrent major depressive disorder, in partial remission (HCC) [facility] Diagnosis Chronic diarrhea Diarrhea documented in [facility]* Diagnosis Essential hypertension- Primary Unspecified essential hypertension Mixed hyperlipidemia Type 2 diabetes mellitus with diabetic neuropathy, without long-term current use of insulin (HCC) Polyneuropathy associated with underlying disease (HCC) Myasthenia gravis (HCC) Myasthenia gravis without exacerbation Fibromyalgia Mylagia and myositis, unspecified Anxiety with depression Recurrent major depressive disorder, in partial remission (HCC) Other allergic rhinitis Chronic pain of both shoulders Pain in joint, shoulder region Chronic hand pain, unspecified laterality Need for influenza vaccination Need for prophylactic vaccination and inoculation against influenza Need for COVID-19 vaccine Chronic asthmatic bronchitis (HCC) Chronic obstructive asthma, unspecified [facility] Diagnosis Migraine with aura, not intractable, without status migrainosus [facility] Diagnosis Chronic asthmatic bronchitis (HCC) Chronic obstructive asthma, unspecified [facility] Diagnosis Nausea Nausea alone [facility]* Diagnosis Type 2 diabetes mellitus with diabetic neuropathy, without long-term current use of insulin (HCC)- Primary Anxiety with depression Anxiety Anxiety state, unspecified Chronic diarrhea Diarrhea Chronic pain of both shoulders Pain in joint, shoulder region Chronic hand pain, unspecified laterality Myasthenia gravis (HCC) Myasthenia gravis without exacerbation [facility] Diagnosis Essential hypertension Unspecified essential hypertension Migraine with aura, not intractable, without status migrainosus [facility] Diagnosis Essential hypertension- Primary Unspecified essential hypertension Mixed hyperlipidemia Type 2 diabetes mellitus with diabetic neuropathy, without long-term current use of insulin (HCC) Polyneuropathy associated with underlying disease (HCC) Myasthenia gravis (HCC) Myasthenia gravis without exacerbation Chronic asthmatic bronchitis (HCC) Chronic obstructive asthma, unspecified Other allergic rhinitis Chronic otitis externa of both ears, unspecified type Vitamin D deficiency Unspecified vitamin D deficiency Fibromyalgia Mylagia and myositis, unspecified Gastroesophageal reflux disease, unspecified whether esophagitis present Anxiety Anxiety state, unspecified Recurrent major depressive disorder, in partial remission (HCC) Anxiety with depression Migraine with aura, not intractable, without status migrainosus Chronic pain of both shoulders Pain in joint, shoulder region Chronic hand pain, unspecified laterality [facility] Diagnosis Essential hypertension- Primary Unspecified essential hypertension Mixed hyperlipidemia Statin intolerance Other drug allergy Type 2 diabetes mellitus with diabetic neuropathy, without long-term current use of insulin (HCC) Polyneuropathy associated with underlying disease (HCC) Myasthenia gravis (HCC) Myasthenia gravis without exacerbation Vitamin D deficiency Unspecified vitamin D deficiency Other allergic rhinitis Chronic asthmatic bronchitis (HCC) Chronic obstructive asthma, unspecified Chronic otitis externa of both ears, unspecified type Fibromyalgia Mylagia and myositis, unspecified Gastroesophageal reflux disease, unspecified whether esophagitis present Anxiety with depression Chronic left shoulder pain Pain in joint, shoulder region Asymptomatic postmenopausal status Thrombocytosis Essential thrombocythemia Neutrophilia Other specified disease of white blood cells Chronic pain of both shoulders Pain in joint, shoulder region Chronic hand pain, unspecified laterality Nausea Nausea alone Screening for colon cancer Special screening for malignant neoplasms, colon Encounter for immunization Need for other specified prophylactic vaccination against single bacterial disease Recurrent major depressive disorder, in partial remission (HCC) documented [facility] Diagnosis Essential hypertension- Primary Unspecified essential hypertension Mixed hyperlipidemia Statin intolerance Other drug allergy Type 2 diabetes mellitus with diabetic neuropathy, without long-term current use of insulin (HCC) Polyneuropathy associated with underlying disease (HCC) Myasthenia gravis (HCC) Myasthenia gravis without exacerbation Vitamin D deficiency Unspecified vitamin D deficiency Other allergic rhinitis Allergic conjunctivitis of both eyes Other chronic allergic conjunctivitis Chronic asthmatic bronchitis Chronic obstructive asthma, unspecified Chronic otitis externa of both ears, unspecified type Fibromyalgia Mylagia and myositis, unspecified Anxiety with depression Recurrent major depressive disorder, in partial remission (HCC) Chronic pain of both shoulders Pain in joint, shoulder region Chronic hand pain, unspecified laterality Nausea Nausea alone Asymptomatic postmenopausal status [facility] Diagnosis Type 2 diabetes mellitus without retinopathy (HCC)- Primary Type II or unspecified type diabetes mellitus without mention of complication, not stated as uncontrolled Myasthenia gravis (HCC) Myasthenia gravis without exacerbation Combined forms of age-related cataract of both eyes Other and combined forms of senile cataract Dry eye syndrome of both eyes [facility] Diagnosis Anxiety Anxiety state, unspecified Anxiety with depression [facility] Diagnosis Asymptomatic postmenopausal status [facility] Diagnosis Encounter for immunization- Primary Need for other specified prophylactic vaccination against single bacterial disease Myasthenia gravis (HCC) Myasthenia gravis without exacerbation Recurrent major depressive disorder, in partial remission (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, without long-term current use of insulin (HCC) Migraine with aura, not intractable, without status migrainosus Chronic asthmatic bronchitis Chronic obstructive asthma, unspecified Chronic pain of both shoulders Pain in joint, shoulder region Chronic hand pain, unspecified laterality Nausea Nausea alone Age-related physical debility Senility without mention of psychosis Fatigue, unspecified type [facility]* Diagnosis Myasthenia gravis (HCC)- Primary Myasthenia gravis without exacerbation documented in this encounter [facility] note* Diagnosis Chronic asthmatic bronchitis (HCC) Chronic obstructive asthma, unspecified documented in this encounter [facility] noteNo assessment information availableWProMedica [facility] Work Phone: Reason for referral (narrative)* Diagnostic Procedure Only (Routine) - Pending Review Specialty Diagnoses / Procedures Referred By Contac t Referred To Contact [facility] Diagnoses Encounter for screening mammogram for breast cancer Procedures EBONY SCREENING SCREENING MAMMOGRAPHY BI 2-VIEW BREAST INC Beena Covarrubias PA-C [address] [place] [address] [facility] [address] [place] [address] Referral ID Status Reason Start Date Expiration Date Visits Requested Visits Authorized [id number] Pending Review Auto-Generat ed Referral 11/26/2021 12/26/2022 1 1 [facility] for referral (narrative)No reason for referral information availableWProMedica [facility] Work Phone: Reason for Referral Specialty Diagnoses / Procedures Referred By Contac t Referred To Contact Beena Whitfield PA-C [address] [place] [address] Referral ID Status Reason Start Date Expiration Date V isits Requested Visits Authorized [id number] Authorized 09/07/2021 10/06/2024 1 1 Specialty Diagnoses / Procedures Referred By Contac t Referred To Contact Diagnoses Felicita Garcia APRN.[employer]IVE [address] [place] [address] Referral ID Status Reason Start Date Expiration Date Visits Re quested Visits Authorized [id number] Closed 1 1 Referral ID Status Reason Start Date Expiration Date Visits Re quested Visits Authorized [id number] Closed 1 1 Specialty Diagnoses / Procedures Referred By Contac t Referred To Contact Diagnoses Beena Genao PA-C [address] [place] [address] Referral ID Status Reason Start Date Expiration Date Visits Re quested Visits Authorized [id number] Closed 1 1 Referral ID Status Reason Start Date Expiration Date V isits Requested Visits Authorized [id number] Pending Review 1 1 Medications Administered Section Active Administered Medications - up to 3 most recent administrations Medication Order MAR Action Action Date Dose Rate Site PHENYLephrine 2.5 % 1 Drop (AK-DILATE, JEFFREY-SYNEPHRINE) 1 Drop, BOTH EYES, DIRECTED, Starting on Wed03/10/23 at 1430, Until Wed03/11/23 at 0229, Administer for dilation PROTECT FROM LIGHT Given 03/10/2023 2:24 PM EDT 1 Drop proparacaine 0.5 % 1 Drop (ALCAINE) 1 Drop, BOTH EYES, DIRECTED, Starting on Wed03/10/23 at 1430, Until Wed03/11/23 at 0229, Administer for pneumo tonometry, tonopen tonometry, or pachymetry. In the event of a proparacaine shortage, administer tetracaine 0.5% ophthalmic drops 1 drop in the left eye as directed for pneumo tonometry, tonopen tonometry, or pachymetry Given 03/10/2023 2:24 PM EDT 1 Drop tropicamide 1 % 1 Drop (MYDRIACYL) 1 Drop, BOTH EYES, DIRECTED, Starting on Wed03/10/23 at 1430, Until Tina 03/11/23 at 0229, Administer for dilation Given 03/10/2023 2:24 PM EDT 1 Drop Summary Purpose Family History No Family History Records Found Relationship Condition Age at Onset Recorded Date/T sukh Not Specified Systemic lupus erythematosus Unknown Systemic sclerosis Unknown Advance Directives No Advanced Directives Records FoundNo Advanced Directives Records Found Chief Complaint and Reason for Visit Chief Complaint Admit Date [facility] May 16 5:00am Chief Complaint Admit Date [facility] May 16 5:00am [facility] September 12, 2024 4 :00am Chief Complaint Admit Date [facility] August 29, 2024 5: 00am [facility] September 12, 2024 4 :00am Additional Source Comments Source Comments (unrecognize d section and content) In the event this informatio n is protected by the Federal Confidentiality of Alcohol and Drug Abuse Patient Records regulations: The Federal rules restrict any use of the information to criminally investigate or prosecute any alcohol or drug abuse patient.[facility] event this information is protected by the Federal Confidentiality of Alcohol and Drug Abuse Patient Records regulations: The Federal rules restrict any use of the information to criminally investigate or prosecute any alcohol or drug abuse patient.[facility] the event this information is protected by the Federal Confidentiality of Alcohol and Drug Abuse Patient Records regulations: The Federal rules restrict any use of the information to criminally investigate or prosecute any alcohol or drug abuse patient.[facility] the event this information is protected by the Federal Confidentiality of Alcohol and Drug Abuse Patient Records regulations: The Federal rules restrict any use of the information to criminally investigate or prosecute any alcohol or drug abuse patient.[facility] event this information is protected by the Federal Confidentiality of Alcohol and Drug Abuse Patient Records regulations: The Federal rules restrict any use of the information to criminally investigate or prosecute any alcohol or drug abuse patient.[facility] the event this information is protected by the Federal Confidentiality of Alcohol and Drug Abuse Patient Records regulations: The Federal rules restrict any use of the information to criminally investigate or prosecute any alcohol or drug abuse patient.[facility] the event this information is protected by the Federal Confidentiality of Alcohol and Drug Abuse Patient Records regulations: The Federal rules restrict any use of the information to criminally investigate or prosecute any alcohol or drug abuse patient.[facility] the event this information is protected by the Federal Confidentiality of Alcohol and Drug Abuse Patient Records regulations: The Federal rules restrict any use of the information to criminally investigate or prosecute any alcohol or drug abuse patient.[facility] the event this information is protected by the Federal Confidentiality of Alcohol and Drug Abuse Patient Records regulations: The Federal rules restrict any use of the information to criminally investigate or prosecute any alcohol or drug abuse patient.[facility] the event this information is protected by the Federal Confidentiality of Alcohol and Drug Abuse Patient Records regulations: The Federal rules restrict any use of the information to criminally investigate or prosecute any alcohol or drug abuse patient.[facility] the event this information is protected by the Federal Confidentiality of Alcohol and Drug Abuse Patient Records regulations: The Federal rules restrict any use of the information to criminally investigate or prosecute any alcohol or drug abuse patient.[facility] the event this information is protected by the Federal Confidentiality of Alcohol and Drug Abuse Patient Records regulations: The Federal rules restrict any use of the information to criminally investigate or prosecute any alcohol or drug abuse patient.[facility] the event this information is protected by the Federal Confidentiality of Alcohol and Drug Abuse Patient Records regulations: The Federal rules restrict any use of the information to criminally investigate or prosecute any alcohol or drug abuse patient.[facility] the event this information is protected by the Federal Confidentiality of Alcohol and Drug Abuse Patient Records regulations: The Federal rules restrict any use of the information to criminally investigate or prosecute any alcohol or drug abuse patient.[facility] the event this information is protected by the Federal Confidentiality of Alcohol and Drug Abuse Patient Records regulations: The Federal rules restrict any use of the information to criminally investigate or prosecute any alcohol or drug abuse patient.[facility] the event this information is protected by the Federal Confidentiality of Alcohol and Drug Abuse Patient Records regulations: The Federal rules restrict any use of the information to criminally investigate or prosecute any alcohol or drug abuse patient.[facility] the event this information is protected by the Federal Confidentiality of Alcohol and Drug Abuse Patient Records regulations: The Federal rules restrict any use of the information to criminally investigate or prosecute any alcohol or drug abuse patient.[facility] the event this information is protected by the Federal Confidentiality of Alcohol and Drug Abuse Patient Records regulations: The Federal rules restrict any use of the information to criminally investigate or prosecute any alcohol or drug abuse patient.[facility] the event this information is protected by the Federal Confidentiality of Alcohol and Drug Abuse Patient Records regulations: The Federal rules restrict any use of the information to criminally investigate or prosecute any alcohol or drug abuse patient.[facility] the event this information is protected by the Federal Confidentiality of Alcohol and Drug Abuse Patient Records regulations: The Federal rules restrict any use of the information to criminally investigate or prosecute any alcohol or drug abuse patient.[facility] the event this information is protected by the Federal Confidentiality of Alcohol and Drug Abuse Patient Records regulations: The Federal rules restrict any use of the information to criminally investigate or prosecute any alcohol or drug abuse patient.[facility] the event this information is protected by the Federal Confidentiality of Alcohol and Drug Abuse Patient Records regulations: The Federal rules restrict any use of the information to criminally investigate or prosecute any alcohol or drug abuse patient.[facility] the event this information is protected by the Federal Confidentiality of Alcohol and Drug Abuse Patient Records regulations: The Federal rules restrict any use of the information to criminally investigate or prosecute any alcohol or drug abuse patient.[facility] the event this information is protected by the Federal Confidentiality of Alcohol and Drug Abuse Patient Records regulations: The Federal rules restrict any use of the information to criminally investigate or prosecute any alcohol or drug abuse patient.[facility] the event this information is protected by the Federal Confidentiality of Alcohol and Drug Abuse Patient Records regulations: The Federal rules restrict any use of the information to criminally investigate or prosecute any alcohol or drug abuse patient.[facility] the event this information is protected by the Federal Confidentiality of Alcohol and Drug Abuse Patient Records regulations: The Federal rules restrict any use of the information to criminally investigate or prosecute any alcohol or drug abuse patient.[facility] the event this information is protected by the Federal Confidentiality of Alcohol and Drug Abuse Patient Records regulations: The Federal rules restrict any use of the information to criminally investigate or prosecute any alcohol or drug abuse patient.[facility] the event this information is protected by the Federal Confidentiality of Alcohol and Drug Abuse Patient Records regulations: The Federal rules restrict any use of the information to criminally investigate or prosecute any alcohol or drug abuse patient.[facility] the event this information is protected by the Federal Confidentiality of Alcohol and Drug Abuse Patient Records regulations: The Federal rules restrict any use of the information to criminally investigate or prosecute any alcohol or drug abuse patient.[facility] the event this information is protected by the Federal Confidentiality of Alcohol and Drug Abuse Patient Records regulations: The Federal rules restrict any use of the information to criminally investigate or prosecute any alcohol or drug abuse patient.[facility] the event this information is protected by the Federal Confidentiality of Alcohol and Drug Abuse Patient Records regulations: The Federal rules restrict any use of the information to criminally investigate or prosecute any alcohol or drug abuse patient.[facility] the event this information is protected by the Federal Confidentiality of Alcohol and Drug Abuse Patient Records regulations: The Federal rules restrict any use of the information to criminally investigate or prosecute any alcohol or drug abuse patient.[facility] the event this information is protected by the Federal Confidentiality of Alcohol and Drug Abuse Patient Records regulations: The Federal rules restrict any use of the information to criminally investigate or prosecute any alcohol or drug abuse patient.[facility] the event this information is protected by the Federal Confidentiality of Alcohol and Drug Abuse Patient Records regulations: The Federal rules restrict any use of the information to criminally investigate or prosecute any alcohol or drug abuse patient.[facility] the event this information is protected by the Federal Confidentiality of Alcohol and Drug Abuse Patient Records regulations: The Federal rules restrict any use of the information to criminally investigate or prosecute any alcohol or drug abuse patient.[facility] the event this information is protected by the Federal Confidentiality of Alcohol and Drug Abuse Patient Records regulations: The Federal rules restrict any use of the information to criminally investigate or prosecute any alcohol or drug abuse patient.[facility] the event this information is protected by the Federal Confidentiality of Alcohol and Drug Abuse Patient Records regulations: The Federal rules restrict any use of the information to criminally investigate or prosecute any alcohol or drug abuse patient.[facility] the event this information is protected by the Federal Confidentiality of Alcohol and Drug Abuse Patient Records regulations: The Federal rules restrict any use of the information to criminally investigate or prosecute any alcohol or drug abuse patient.[facility] the event this information is protected by the Federal Confidentiality of Alcohol and Drug Abuse Patient Records regulations: The Federal rules restrict any use of the information to criminally investigate or prosecute any alcohol or drug abuse patient.[facility] the event this information is protected by the Federal Confidentiality of Alcohol and Drug Abuse Patient Records regulations: The Federal rules restrict any use of the information to criminally investigate or prosecute any alcohol or drug abuse patient.[facility] the event this information is protected by the Federal Confidentiality of Alcohol and Drug Abuse Patient Records regulations: The Federal rules restrict any use of the information to criminally investigate or prosecute any alcohol or drug abuse patient.[facility] the event this information is protected by the Federal Confidentiality of Alcohol and Drug Abuse Patient Records regulations: The Federal rules restrict any use of the information to criminally investigate or prosecute any alcohol or drug abuse patient.[facility] [place] Reason for Visit (unrecogniz ed section and content) Reason Comments Prescription Refills Reason Comments Cough Reason Comments Physical Reason Onset Date Comments Refill Request 10/27/2021 Reason Onset Date Comments Refill Request 11/13/2021 Reason Onset Date Comments Refill Request 11/19/2021 Reason Comments Medication Request Reason Comments Recheck Reason Comments Refill Request Reason Comments med error Reason Onset Date Comments Follow Up Immunizations 03/02/2022 Flu vaccination Reason Onset Date Comments Refill Request 05/08/2022 Reason Onset Date Comments Refill Request 05/14/2022 Reason Comments Appointment Reason Onset Date Comments Refill Request 09/11/2021 Refill Request 05/15/2022 Reason Comments Dizziness Reason Comments Follow Up 3 month follow up Reason Comments Missed VV Reason Comments Insurance Authorization Estrace Reason Onset Date Comments Refill Request 07/06/2022 Reason Onset Date Comments Refill Request 07/31/2022 Reason Onset Date Comments Refill Request 11/13/2022 Reason Comments Letter Reason Comments Follow Up Reason Comments Patient Update Reason Comments Diabetic Eye Exam Type 2 Reason Comments Rx issue Reason Comments Medication Problem Reason Comments Arthritis Requesting HH, unabl e to get up and walk by self, weak Reason Comments Orders Reason Comments Patient Question Reason Onset Date Comments Refill Request 09/10/2023 Care Teams (unrecognized sec tion and content) Acid Polymerization Operator Relationship Specialty Start Date End Date Beena Whitfield PA-C [address] [facility] [place] [address] PCP - General Family Practice 11/03/18 Acid Polymerization Operator Relationship Specialty Start Date End Date Beena Whitfield PA-C [address] [facility] [place] [address] PCP - General Family Practice 11/03/18 Acid Polymerization Operator Relationship Specialty Start Date End Date Beena Whitfield PA-C [address] [facility] [place] [address] PCP - General Family Practice 11/03/18 Acid Polymerization Operator Relationship Specialty Start Date End Date Beena Whitfield PA-C [address] [facility] [place] [address] PCP - General Family Practice 11/03/18 Acid Polymerization Operator Relationship Specialty Start Date End Date Beena Whitfield PA-C [address] [facility] [address] PCP - General Family Practice 11/03/18 Acid Polymerization Operator Relationship Specialty Start Date End Date Beena Whitfield PA-C [address] [facility] [place] [address] PCP - General Family Practice 11/03/18 Acid Polymerization Operator Relationship Specialty Start Date End Date Beena Whitfield PA-C [address] [facility] [place] [address] PCP - General Family Practice 11/03/18 Acid Polymerization Operator Relationship Specialty Start Date End Date Beena Whitfield PA-C [address] [facility] [place] [address] PCP - General Family Practice 11/03/18 Acid Polymerization Operator Relationship Specialty Start Date End Date Beena Whitfield PA-C [address] [facility] [place] [address] PCP - General Family Practice 11/03/18 Acid Polymerization Operator Relationship Specialty Start Date End Date Beena Whitfield PA-C [address] [facility] [address] PCP - General Family Medicine 11/03/18 Acid Polymerization Operator Relationship Specialty Start Date End Date Beena Whitfield PA-C [address] [facility] [address] PCP - General Family Medicine 11/03/18 Acid Polymerization Operator Relationship Specialty Start Date End Date Beena Whitfield PA-C [address] [facility] [address] PCP - General Family Medicine 11/03/18 Acid Polymerization Operator Relationship Specialty Start Date End Date Beena Whitfield PA-C [address] [facility] [address] PCP - General Family Medicine 11/03/18 Acid Polymerization Operator Relationship Specialty Start Date End Date Beena Whitfield PA-C [address] [facility] [address] PCP - General Family Medicine 11/03/18 Acid Polymerization Operator Relationship Specialty Start Date End Date Beena Whitfield PA-C [address] [facility] [place] [address] PCP - General Family Medicine 11/03/18 Acid Polymerization Operator Relationship Specialty Start Date End Date Beena Whitfield PA-C [address] [facility] [place] [address] PCP - General Family Medicine 11/03/18 Acid Polymerization Operator Relationship Specialty Start Date End Date Beena Whitfield PA-C [address] [facility] [place] [address] PCP - General Family Medicine 11/03/18 Acid Polymerization Operator Relationship Specialty Start Date End Date Beena Whitfield PA-C [address] [facility] [address] PCP - General Family Medicine 11/03/18 Acid Polymerization Operator Relationship Specialty Start Date End Date Beena Whitfield PA-C [address] [facility] [address] PCP - General Family Medicine 11/03/18 Acid Polymerization Operator Relationship Specialty Start Date End Date Beena Whitfield PA-C [address] [facility] [place] [address] PCP - General Family Medicine 11/03/18 Acid Polymerization Operator Relationship Specialty Start Date End Date Beena Whitfield PA-C [address] [facility] [address] PCP - General Family Medicine 11/03/18 Acid Polymerization Operator Relationship Specialty Start Date End Date Beena Whitfield PA-C [address] [facility] [place] [address] PCP - General Family Medicine 11/03/18 Acid Polymerization Operator Relationship Specialty Start Date End Date Beena Whitfield PA-C [address] [facility] [address] PCP - General Family Medicine 11/03/18 Acid Polymerization Operator Relationship Specialty Start Date End Date Beena Whitfield PA-C [address] [facility] [place] [address] PCP - General Family Medicine 11/03/18 Acid Polymerization Operator Relationship Specialty Start Date End Date Beena Whitfield PA-C [address] [place] [address] PCP - General Family Medicine 11/03/18 Acid Polymerization Operator Relationship Specialty Start Date End Date Beena Whitfield PA-C [address] [place] [address] PCP - General Family Medicine 11/03/18 Acid Polymerization Operator Relationship Specialty Start Date End Date Beena Whitfield PA-C [address] [place] [address] PCP - General Family Medicine 11/03/18 Acid Polymerization Operator Relationship Specialty Start Date End Date Beena Whitfield PA-C [address] [place] [address] PCP - General Family Medicine 11/03/18 Acid Polymerization Operator Relationship Specialty Start Date End Date Beena Whitfield PA-C [address] [place] [address] PCP - General Family Medicine 11/03/18 Acid Polymerization Operator Relationship Specialty Start Date End Date Beena Whitfield PA-C [address] [place] [address] PCP - General Family Medicine 11/03/18 Acid Polymerization Operator Relationship Specialty Start Date End Date Beena Whitfield PA-C [address] [place] [address] PCP - General Family Medicine 11/03/18 Team Status: Active Member Role Status Dates Dr. Mynor Hampton MD Family Provider Active Beena DAUGHERTY PA Primary Care Provider Active Team Status: Active Member Role Status Dates Beena DAUGHERTY PA Primary Care Provider Active Start: May 16, 2024 Ishaan CURTIS MD Attending Provider Active Start: May 16, 2024 Team Status: Inactive Member Role Status Dates Beena DAT Partida Primary Care Provider Active Start: August 14, 2024 End: August 14, 2024 Ishaan CURTIS MD Attending Provider Active Start: August 14, 2024 End: August 14, 2024 Team Status: Active Member Role Status Dates Beena DAT Partida Primary Care Provider Active Start: August 29, 2024 Ishaan CURTIS MD Attending Provider Active Start: August 29, 2024 Team Status: Inactive Member Role Status Dates Beena DAT Partida Primary Care Provider Active Start: September 12, 2024 End: September 12, 2024 Ishaan CURTIS MD Attending Provider Active Start: September 12, 2024 End: September 12, 2024 Ishaan CURTIS MD Referring Provider Active Start: September 12, 2024 End: September 12, 2024 Team Status: Inactive Member Role Status Dates Beena DAT Partida Primary Care Provider Active Start: August 29, 2024 End: August 29, 2024 Ishaan CURTIS MD Attending Provider Active Start: August 29, 2024 End: August 29, 2024 INFORMATION SOURCE (unrecogn ized section and content) DATE CREATED AUTHOR 10/20/2023 [facility] DATE CREATED AUTHOR 'S IMELDAIZ ATION 09/20/2024 [facility] Goals (unrecognized section and content) Goals may be documented in a n alternate sectionGoals may be documented in an alternate sectionGoals may be documented in an alternate section FOR RECORDS PERTAINING TO PATIENTS WHO ARE OR HAVE BEEN ENROLLED IN A CHEMICAL DEPENDENCY/SUBSTANCEABUSE PROGRAM, SOME INFORMATION MAY BE OMITTED. This clinical summary was aggregated from multiple sources. Caution should be exercised in using it in the provision of clinical care. This summary normalizes information from multiple sources, and as a consequence, information in this document may materially change the coding, format and clinical context of patient data. In addition, data may be omitted in some cases. CLINICAL DECISIONS SHOULD BE BASED ON THE PRIMARY CLINICAL RECORDS. [employer] provides no warranty or guarantee of the accuracy or completeness of information in this document.
[2024-11-15 07:56] LABS: Hematocrit 37.5 % (37-47); Hemoglobin 12.3 g/dL (12.0-15.0); Mean Corp Hgb Conc 32.8 g/dL (32-36); Mean Corpuscular Hgb 30.4 pg (27.0-32.0); Mean Corpuscular Volume 92.6 fL (81-99); Mean Platelet Vol. 11.2 fl (6.2-12.0); Platelet Count 318 K/mm3 (150-450); RBC Distribution Width CV 12.4 % (11.6-14.6); RBC Distribution Width SD 42.4 fl (35.1-43.9); Red Blood Count 4.05 M/mm3 (4.2-5.4); White Blood Count 7.5 K/mm3 (4.4-11.0)
[2024-11-15 08:31] LABS: Anion Gap 10 (5-15); BUN 23 mg/dL (4-19); BUN/Creat Ratio 30.5 RATIO (10-20); Calcium,Total 9.3 mg/dL (7.6-11.0); Carbon Dioxide 23.1 mmol/L (21.0-32.0); Chloride 108 mmol/L (98-108); Creatinine, Serum 0.75 mg/dL (0.70-1.20); EST Glomerular Filtration Rate 82 (>60); Glucose 153 mg/dL (70-99); Potassium 4.6 mmol/L (3.3-5.1); Sodium Level 141 mmol/L (133-145)
== END ==
LOC: OLS.WCC 05:00
PROVIDERS: PCP Physician Assistant; Visit Provider Family Medicine
DX: J44.1 Chronic obstructive pulmonary disease with (acute) exacerbation (principal); I10 Essential (primary) hypertension; Z79.899 Other long term (current) drug therapy
CPT/HCPCS: 36415; 80048; 85027

== ENCOUNTER 2025-01-08 09:29 | Inpatient (IN) | payer MEDICARE, MEDICAID, SELFPAY ==
[2025-01-08] VITALS (30 sets, daily range): BP systolic 92–155; BP diastolic 35–80; PULSE 80–111; RESP 14–27; TEMP 36.3–37.4; O2SAT 92–100; BMI 27.7; BMI 24.4
--- NOTE | 2025-01-08 10:20 | EDS_ITS ---
HPI History of Present Illness Chief Complaint: Abn Labs Narrative Narrative: Patient is a 79-year-old female presenting to the emergency department for nausea, vomiting and black tarry stool with a low hemoglobin noted by doctor at her nursing facility. Patient has a past medical history of myasthenia gravis and does not ambulate secondary to this. States that she has had GI bleeds in the past and required blood transfusions. States that since she has had nausea and episodes of nonbloody vomiting. Reports that she has also had diarrhea that the techs reported were black tarry. She denies fever, chills, chest pain, shortness of breath, abdominal pain. Denies any dysuria or hematuria. Denies any hematemesis. [facility] Medical History Anxiety Depression Chronic pain Osteoarthritis GERD (gastroesophageal reflux disease) Former smoker Pulmonary embolism Hypertension Migraines Anxiety and depression Hx of gastroesophageal reflux (GERD) Fibromyalgia Diabetes mellitus Myasthenia gravis Hx pulmonary embolism Home Medications ?Medication ?Instructions ?Recorded ?Last Taken ?Type montelukast 10 mg tablet 10 mg PO DAILY ALLERGIES 05/1101/04/25 History sertraline 100 mg tablet 100 mg PO DAILY DEPRESSION 1 07/05/18 01/07/25 History albuterol sulfate 90 mcg/actuation 2 puff inhalation Q 4H PRN 10/22/23 01/06/25 History aerosol inhaler shortness of breath or wheez ing budesonide-formoterol HFA 80 2 puff inhalation BID DYS PNEA 10/22/23 01/07/25 History mcg-4.5 mcg/actuation aerosol inhaler estradiol 0.5 mg tablet 0.5 mg PO DAILY POSTMENOPAUS AL 10/22/23 01/06/25 History pyridostigmine bromide 60 mg tablet 60 mg PO Q8H FOR M USCLE STRENGTH 10/22/23 01/07/25 History sumatriptan succinate 100 mg tablet 100 mg PO PRN MIGR BRIAN 10/22/23 Unknown History cholecalciferol (vitamin D3) 25 2,000 unit PO DAILY givens pplement 10/26/23 01/04/25 History mcg (1,000 unit) capsule (Vitamin D3) amlodipine 10 mg tablet 10 mg PO DAILY HTN #0 tabs 0 10/27/23 12/30/24 Rx acetaminophen 325 mg tablet 650 mg PO Q6H PRN pain Unknown History cromolyn 4 % eye drops 2 drp ophthalmic (eye) Q6H P RN 01/08/25 12/24/24 History VERNAL CONJUNCTIVITIS fluticasone propionate 50 1 spray intranasal Q12H NURIS RGY 01/08/25 01/07/25 History mcg/actuation nasal SYMPTOM spray,suspension hydrocodone-acetaminophen 5-325mg 1 tab PO Q6H PRN Carlos n 5-10 Or 01/08/25 01/07/25 History 5mg-325mg Fever > 100.7 F lidocaine 4 % topical patch 1 patch topical DAILY PRN pain 01/08/25 Unknown History (Aspercreme (lidocaine)) loperamide 2 mg capsule 2 mg PO Q4H PRN DIARRHEA 01/06/25 History loratadine 10 mg tablet 10 mg PO DAILY ALLERGIES 01/04/25 History (Allerclear) melatonin 3 mg tablet 3 mg PO PRN Insomnia 5 Unknown History naphazoline-glycerin 0.03 %-0.5 % 2 drp ophthalmic (ey e) Q4H PRN 01/08/25 Unknown History eye drops (Clear Eyes Cooling ITCHY EYES Comfort) naproxen sodium 220 mg capsule 220 mg PO BID PRN pain 01/08/25 01/07/25 History (Aleve) ondansetron HCl 4 mg tablet 4 mg PO Q6H PRN nausea and vomiting 01/08/25 01/07/25 History pantoprazole 40 mg tablet,delayed 40 mg PO DAILY GASTR ITIS 01/08/25 Unknown History release (Protonix) simethicone 125 mg tablet 125 mg PO Q8H PRN abdominal 01/08/25 12/25/24 History (Bicarsim Forte) distention vit A 300 mcg-C 200 mg-E 27 1 tab PO DAILY VERNAL 12/2201/06/25 History mg-lutein 2 mg and minerals tablet CONJUNCTIVITIS (I-Hernan) Allergy/AdvReac Type Severity Reaction Status Date / Time Beta-Blockers Allergy Severe Other Verified 10/22/23 12:02 (Beta-Adrenergic Bloc Horse/Equine Containing AdvReac NEEDS Verified 10/22/23 12:00 Products FOLLOW-UP Sugars, Metabolically Active AdvReac Unknown Verified 10/22/23 12:00 Family History Other Lupus (systemic lupus erythematosus) Scleroderma Surgical History Hx of thymectomy Social History Smoking Status: Former smoker ROS ROS ED ROS Narrative see HPI EXAM Physical Exam Narrative Exam Narrative: Vital signs: Reviewed General: Alert and orientedx3. No acute distress. Chronically ill appearing. HEENT: Head is normocephalic and atraumatic, sinuses nontender, pupils equal round and reactive. Nares are patent. Oropharynx and throat exams normal. Neck: Supple without lymphadenopathy nontender Cardiovascular: Tachycardic and regular rhythm, no murmurs. No rubs or gallops. Normal S1 and S2 Respiratory: Clear to auscultation bilaterally. No wheezes, rales, rhonchi Abdominal: Soft and nontender. Normal bowel sounds. No guarding or rebound. Nonsurgical abdomen Extremities: Chronic contractures in bilateral lower extremities. No tenderness. No bruising. Skin: No rash or redness. The rest of the physical exam is unremarkable Const Vital Signs: 01/08/25 09:30 01/08/25 09:58 Temperature 97.6 F L Temperature Source Temporal Pulse Rate 108 H Respiratory Rate 18 Respiratory Pattern Normal Blood Pressure 155/62 H Blood Pressure Mean 93 Pulse Ox 94 Oxygen Delivery Method Room Air MDM MDM MDM Narrative Medical decision making narrative: Patient is a 79-year-old female presenting to the emergency department for nausea, vomiting and black tarry stool with a low hemoglobin outpatient by her doctor. Patient was seen and examined. Vitals are stable. Mildly tachcyardic. Differential includes but is not limited to: Upper GI bleed from peptic ulcer, lower GI bleed, hemorrhoids, anal fissure, AVM, diverticulitis, colitis Patient typed and screened for blood given the outpatient hemoglobin of 5.5. PT and PTT ordered. Labs and CT imaging ordered given her nausea and vomiting since . Lab Data Labs: Laboratory Results - last 24 hr 01/08/25 09:39 Crossmatch See Detail Discharge Plan Triage Chief Complaint: Abn Labs ED Provider: Xuan Mcdaniels Dx/Rx/DC Orders Prescriptions: No Action sertraline 100 MG tablet 100 mg PO DAILY montelukast 10 MG tablet 10 mg PO DAILY albuterol sulfate 90 mcg/actuation HFA aerosol inhaler 2 puff inhalation Q4H PRN (Reason: shortness of breath or wheezing) pyridostigmine bromide 60 mg tablet 60 mg PO Q8H estradiol 0.5 mg tablet 0.5 mg PO DAILY budesonide-formoterol 80-4.5 mcg/actuation HFA aerosol inhaler 2 puff INHALATION BID sumatriptan succinate 100 mg tablet 100 mg PO PRN cholecalciferol (vitamin D3) [Vitamin D3] 25 mcg (1,000 unit) capsule 2,000 unit PO DAILY amlodipine 10 mg Tablet 10 mg PO DAILY Qty: 0 0RF acetaminophen 325 mg tablet 650 mg PO Q6H PRN (Reason: pain) Clear Eyes Cooling Comfort 0.03-0.5 % drops 2 drp ophthalmic (eye) Q4H PRN (Reason: ITCHY EYES) cromolyn 4 % drops 2 drp ophthalmic (eye) Q6H PRN (Reason: VERNAL CONJUNCTIVITIS) fluticasone propionate 50 mcg/actuation spray,suspension 1 spray INTRANASAL Q12H I-Hernan 300 mcg-200 mg-27 mg-2 mg tablet 1 tab PO DAILY Rx Instructions: administer after a meal loratadine [Allerclear] 10 mg tablet 10 mg PO DAILY naproxen sodium [Aleve] 220 mg capsule 220 mg PO BID PRN (Reason: pain) Rx Instructions: HOLD FROM 01/08/25 TO 01/15/25 pantoprazole [Protonix] 40 mg tablet,delayed release (DR/EC) 40 mg PO DAILY lidocaine [Aspercreme (lidocaine)] 4 % adhesive patch,medicated 1 patch topical DAILY PRN (Reason: pain) Rx Instructions: LEFT HAND AND LEFT SHOULDER Bicarsim Forte 125 mg tablet 125 mg PO Q8H PRN (Reason: abdominal distention) ondansetron HCl 4 mg tablet 4 mg PO Q6H PRN (Reason: nausea and vomiting) loperamide 2 mg Capsule 2 mg PO Q4H PRN (Reason: DIARRHEA) hydrocodone-acetaminophen 5-325 mg Tablet 1 tab PO Q6H PRN (Reason: Pain 5-10 Or Fever > 100.7 F) melatonin 3 mg Tablet 3 mg PO PRN Primary Care Provider: Beena Whitfield Referrals: Beena Whitfield, PA [Primary Care Provider] - Print Language: Malay
--- NOTE | 2025-01-08 10:20 | EX.ED.DYSGE1 ---
HPI History of Present Illness Chief Complaint: Abn Labs Narrative Narrative: Patient is a 79-year-old female presenting to the emergency department for nausea, vomiting and black tarry stool with a low hemoglobin noted by doctor at her nursing facility. Patient has a past medical history of myasthenia gravis and does not ambulate secondary to this. States that she has had GI bleeds in the past and required blood transfusions. States that since she has had nausea and episodes of nonbloody vomiting. Reports that she has also had diarrhea that the techs reported were black tarry. She denies fever, chills, chest pain, shortness of breath, abdominal pain. Denies any dysuria or hematuria. Denies any hematemesis. [facility] Medical History Anxiety Depression Chronic pain Osteoarthritis GERD (gastroesophageal reflux disease) Former smoker Pulmonary embolism Hypertension Migraines Anxiety and depression Hx of gastroesophageal reflux (GERD) Fibromyalgia Diabetes mellitus Myasthenia gravis Hx pulmonary embolism Home Medications ?Medication ?Instructions ?Recorded ?Last Taken ?Type montelukast 10 mg tablet 10 mg PO DAILY ALLERGIES 05/04/19 01/04/25 History sertraline 100 mg tablet 100 mg PO DAILY DEPRESSION 05/04/19 01/07/25 History albuterol sulfate 90 mcg/actuation 2 puff inhalation Q4H PRN 10/22/23 01/06/25 History aerosol inhaler shortness of breath or wheezing budesonide-formoterol HFA 80 2 puff inhalation BID DYSPNEA 10/22/23 01/07/25 History mcg-4.5 mcg/actuation aerosol inhaler estradiol 0.5 mg tablet 0.5 mg PO DAILY POSTMENOPAUSAL 10/22/23 01/06/25 History pyridostigmine bromide 60 mg tablet 60 mg PO Q8H FOR MUSCLE STRENGTH 10/22/23 01/07/25 History sumatriptan succinate 100 mg tablet 100 mg PO PRN MIGRAINE 10/22/23 Unknown History cholecalciferol (vitamin D3) 25 2,000 unit PO DAILY supplement 10/26/23 01/04/25 History mcg (1,000 unit) capsule (Vitamin D3) amlodipine 10 mg tablet 10 mg PO DAILY HTN #0 tabs 10/27/23 12/30/24 Rx acetaminophen 325 mg tablet 650 mg PO Q6H PRN pain 01/08/25 Unknown History cromolyn 4 % eye drops 2 drp ophthalmic (eye) Q6H PRN 01/08/25 12/24/24 History VERNAL CONJUNCTIVITIS fluticasone propionate 50 1 spray intranasal Q12H ALLERGY 01/08/25 01/07/25 History mcg/actuation nasal SYMPTOM spray,suspension hydrocodone-acetaminophen 5-325mg 1 tab PO Q6H PRN Pain 5-10 Or 01/08/25 01/07/25 History 5mg-325mg Fever > 100.7 F lidocaine 4 % topical patch 1 patch topical DAILY PRN pain 01/08/25 Unknown History (Aspercreme (lidocaine)) loperamide 2 mg capsule 2 mg PO Q4H PRN DIARRHEA 01/08/25 01/06/25 History loratadine 10 mg tablet 10 mg PO DAILY ALLERGIES 01/08/25 01/04/25 History (Allerclear) melatonin 3 mg tablet 3 mg PO PRN Insomnia 01/08/25 Unknown History naphazoline-glycerin 0.03 %-0.5 % 2 drp ophthalmic (eye) Q4H PRN 01/08/25 Unknown History eye drops (Clear Eyes Cooling ITCHY EYES Comfort) naproxen sodium 220 mg capsule 220 mg PO BID PRN pain 01/08/25 01/07/25 History (Aleve) ondansetron HCl 4 mg tablet 4 mg PO Q6H PRN nausea and vomiting 01/08/25 01/07/25 History pantoprazole 40 mg tablet,delayed 40 mg PO DAILY GASTRITIS 01/08/25 Unknown History release (Protonix) simethicone 125 mg tablet 125 mg PO Q8H PRN abdominal 01/08/25 12/25/24 History (Bicarsim Forte) distention vit A 300 mcg-C 200 mg-E 27 1 tab PO DAILY VERNAL 01/08/25 01/06/25 History mg-lutein 2 mg and minerals tablet CONJUNCTIVITIS (I-Hernan) Allergy/AdvReac Type Severity Reaction Status Date / Time Beta-Blockers Allergy Severe Other Verified 10/22/23 12:02 (Beta-Adrenergic Bloc Horse/Equine Containing AdvReac NEEDS Verified 10/22/23 12:00 Products FOLLOW-UP Sugars, Metabolically Active AdvReac Unknown Verified 10/22/23 12:00 Family History Other Lupus (systemic lupus erythematosus) Scleroderma Surgical History Hx of thymectomy Social History Smoking Status: Former smoker ROS ROS ED ROS Narrative see HPI EXAM Physical Exam Narrative Exam Narrative: Vital signs: Reviewed General: Alert and orientedx3. No acute distress. Chronically ill appearing. Pale. HEENT: Head is normocephalic and atraumatic, sinuses nontender, pupils equal round and reactive. Nares are patent. Oropharynx and throat exams normal. Neck: Supple without lymphadenopathy nontender Cardiovascular: Tachycardic and regular rhythm, no murmurs. No rubs or gallops. Normal S1 and S2 Respiratory: Clear to auscultation bilaterally. No wheezes, rales, rhonchi Abdominal: Soft and nontender. Normal bowel sounds. No guarding or rebound. Nonsurgical abdomen : Rectal exam done with char filter tank tender head RN at bedside. Melanotic stool on rectal exam. No bright red blood. No hemorrhoids. Extremities: Chronic contractures in bilateral lower extremities. No tenderness. No bruising. Skin: No rash or redness. The rest of the physical exam is unremarkable Const Vital Signs: 01/08/25 09:30 01/08/25 09:58 01/08/25 10:30 Temperature 97.6 F L Temperature Source Temporal Pulse Rate 108 H 102 H Respiratory Rate 18 18 Respiratory Pattern Normal Blood Pressure 155/62 H 124/61 H Blood Pressure Mean 93 82 Blood Pressure Source Blood Pressure Position Blood Pressure Location Pulse Ox 94 98 Oxygen Delivery Method Room Air 01/08/25 11:00 01/08/25 11:40 01/08/25 11:43 Temperature 98 F 98.3 F Temperature Source Oral Oral Pulse Rate 108 H 111 H 106 H Respiratory Rate 18 27 H 15 Respiratory Pattern Blood Pressure 116/78 97/58 L 99/58 L Blood Pressure Mean 90 71 71 Blood Pressure Source Monitor Blood Pressure Position Blood Pressure Location Pulse Ox 98 95 97 Oxygen Delivery Method Room Air Room Air 01/08/25 11:47 01/08/25 11:58 01/08/25 12:00 Temperature 98.3 F 98.3 F Temperature Source Oral Pulse Rate 106 H 100 100 Respiratory Rate 15 18 Respiratory Pattern Blood Pressure 99/58 L 120/80 122/70 H Blood Pressure Mean 71 93 87 Blood Pressure Source Monitor Blood Pressure Position Supine Blood Pressure Location Right Arm Pulse Ox 97 96 100 Oxygen Delivery Method Room Air MDM MDM MDM Narrative Medical decision making narrative: Patient is a 79-year-old female presenting to the emergency department for nausea, vomiting and black tarry stool with a low hemoglobin outpatient by her doctor. Patient was seen and examined. Vitals are stable. Mildly tachycardic. Differential includes but is not limited to: Upper GI bleed from peptic ulcer, lower GI bleed, hemorrhoids, anal fissure, AVM, diverticulitis, colitis Patient typed and screened for blood given the outpatient hemoglobin of 5.5. PT and PTT ordered. Labs and CT imaging ordered given her nausea and vomiting since . CBC with mild leukocytosis of 11.6. Anemia of 5.6. Slight elevation of BUN of 32. Informed consent obtained for 1 unit PRBC. I did recommend that the patient had a CT scan done given she has had nausea and vomiting. She refused. Fecal occult was positive. Patient admitted to the hospitalist for further management. I did speak to GI, Dr. Foy, who agreed with need for EGD. Hospitalist spoke with the patient and recommended to CT again however the patient declined once again. She understands the risks and benefits of not having it done. Clinical impression: GI bleed anemia Lab Data Labs: Laboratory Results - last 24 hr 01/08/25 01/08/25 09:39 09:39 WBC 11.6 H RBC 1.77 L Hgb 5.6 L* Hct 17.4 L MCV 98.3 MCH 31.6 MCHC 32.2 RDW Std Deviation 42.6 RDW Coeff of Meir 12.3 Plt Count 350 MPV 11.0 Immature Gran % (Auto) 0.500 Neut % (Auto) 72.0 H Lymph % (Auto) 20.1 [place] % (Auto) 6.3 Eos % (Auto) 0.8 Baso % (Auto) 0.3 Absolute Neuts (auto) 8.3 H Absolute Lymphs (auto) 2.33 Nucleated RBC % 0 PT 14.4 INR 1.1 APTT 24.3 Sodium 140 Potassium 4.2 Chloride 107 Carbon Dioxide 23.6 Anion Gap 9 BUN 32 H Creatinine 0.61 L Estim Creat Clear Calc 55.63 Est GFR (MDRD) Non-Af 92 BUN/Creatinine Ratio 52.6 H Glucose 121 H Calcium 9.0 Total Bilirubin 0.23 AST 20 ALT 21 Alkaline Phosphatase 63 Total Protein 5.4 L Albumin 3.4 Globulin 2.1 L Albumin/Globulin Ratio 1.6 Lipase 28 Blood Type O POSITIVE Antibody Screen NEGATIVE Crossmatch See Detail See Detail Discharge Plan Disposition Disposition: Acute Care Hospital [facility] Discharge Date/Time: 01/08/25 13:35
[2025-01-08 10:27] LABS: Hematocrit 17.4 % (37-47); Immature Granulocytes Count 0.060 X10^3/uL (0.0-0.0); Mean Corp Hgb Conc 32.2 g/dL (32-36); Mean Corpuscular Volume 98.3 fL (81-99); Mean Platelet Vol. 11.0 fl (6.2-12.0); NRBC Flagged by Analyzer 0 % (0-5); POSITIVE COUNT YES; Platelet Count 350 K/mm3 (150-450); RBC Distribution Width CV 12.3 % (11.6-14.6); RBC Distribution Width SD 42.6 fl (35.1-43.9); Red Blood Count 1.77 M/mm3 (4.2-5.4); White Blood Count 11.6 K/mm3 (4.4-11.0)
[2025-01-08 10:29] LABS: Hemoglobin 5.6 g/dL (12.0-15.0)
[2025-01-08 10:40] LABS: Prothrombin Time (Protime)PT. 14.4 SECONDS (11.7-14.9)
[2025-01-08 10:41] LABS: Partial Thromboplast Time 24.3 Seconds (24.1-36.2)
[2025-01-08 10:54] LABS: AST(SGOT) 20 U/L (<=31); Alanine Aminotransfer ALT/SGPT 21 U/L (<=34); Albumin, Serum 3.4 g/dL (3.4-4.8); Alkaline Phosphatase 63 U/L (35-104); Anion Gap 9 (5-15); BUN 32 mg/dL (4-19); BUN/Creat Ratio 52.6 RATIO (10-20); Calcium,Total 9.0 mg/dL (7.6-11.0); Carbon Dioxide 23.6 mmol/L (21.0-32.0); Chloride 107 mmol/L (98-108); Estimated Creatinine Clearance 55.63 ml/min (50-250); Globulin 2.1 g/dL (2.2-4.2); Glucose 121 mg/dL (70-99); Lipase 28 U/L (13-75); Potassium 4.2 mmol/L (3.3-5.1)
--- NOTE | 2025-01-08 11:51 | PCM.HP.STD ---
HPI - General General Date of Admission: 01/08/25 Date of Service: 01/08/25 Chief Complaint: abnormal labs HPI Narrative SADE VALLES, is a 79 F with a PMH as outlined who presents with a complaint of black, tarry stools. Her Hb was down to 5.6. She has a history of myasthenia gravis and repeated GI bleeds in the past, requiring blood transfusion. She says she last had a colonoscopy and EGD in 2000 in [employer], but has refused any since. She denied any abdominal pain, fever or chills, any coffee-ground emesis or any bright red bleeding per rectum. She denies any weight loss. Review of systems otherwise negative. Vitals in the ED were temp of 98.3F, MT of 100, BP of 120/80, RR of 18, and she was saturating at 94% on room air. CBC showed hemoglobin of 5.6 with a WBC of 11.6 and platelets of 350. INR is 1.1. Chemistry shows sodium of 142 potassium of 4.2 and bicarb of 23.6. Creatinine was 0.61. CT abdomen and pelvis was ordered by the ED doctor. Patient refused. When I reviewed patient's I spoke to her extensively about this and informed her that if there was any active GI bleeding source that could be taken care of by interventional radiology, the CT a abdomen and pelvis would help detect this. Patient was initially with lactate and said she would not do it because she felt it was just adding to her medical course. I explained to her that she did have insurance so this could cover it. However she wanted to know exactly how much it would cost. I explained to her that I did not have the information about exactly how much the CT would cause but I felt it was medically necessary under the circumstances. Patient then reluctantly agreed and I did speak to the ED doctor about ordering this. However patient subsequently declined this. She has been admitted to the ICU to be managed for acute on chronic anemia due to GI bleed. She was transfused with 1 unit of packed red blood cells in the ED. [facility] Medical History Anxiety Depression Chronic pain Osteoarthritis GERD (gastroesophageal reflux disease) Former smoker Pulmonary embolism Hypertension Migraines Anxiety and depression Hx of gastroesophageal reflux (GERD) Fibromyalgia Diabetes mellitus Myasthenia gravis Hx pulmonary embolism Home Medications ?Medication ?Instructions ?Recorded ?Last Taken ?Type montelukast 10 mg tablet 10 mg PO DAILY ALLERGIES 05/04/19 01/04/25 History sertraline 100 mg tablet 100 mg PO DAILY DEPRESSION 05/04/19 01/07/25 History albuterol sulfate 90 mcg/actuation 2 puff inhalation Q4H PRN 10/22/23 01/06/25 History aerosol inhaler shortness of breath or wheezing budesonide-formoterol HFA 80 2 puff inhalation BID DYSPNEA 10/22/23 01/07/25 History mcg-4.5 mcg/actuation aerosol inhaler estradiol 0.5 mg tablet 0.5 mg PO DAILY POSTMENOPAUSAL 10/22/23 01/06/25 History pyridostigmine bromide 60 mg tablet 60 mg PO Q8H FOR MUSCLE STRENGTH 10/22/23 01/07/25 History sumatriptan succinate 100 mg tablet 100 mg PO PRN MIGRAINE 10/22/23 Unknown History cholecalciferol (vitamin D3) 25 2,000 unit PO DAILY supplement 10/26/23 01/04/25 History mcg (1,000 unit) capsule (Vitamin D3) amlodipine 10 mg tablet 10 mg PO DAILY HTN #0 tabs 10/27/23 12/30/24 Rx acetaminophen 325 mg tablet 650 mg PO Q6H PRN pain 01/08/25 Unknown History cromolyn 4 % eye drops 2 drp ophthalmic (eye) Q6H PRN 01/08/25 12/24/24 History VERNAL CONJUNCTIVITIS fluticasone propionate 50 1 spray intranasal Q12H ALLERGY 01/08/25 01/07/25 History mcg/actuation nasal SYMPTOM spray,suspension hydrocodone-acetaminophen 5-325mg 1 tab PO Q6H PRN Pain 5-10 Or 01/08/25 01/07/25 History 5mg-325mg Fever > 100.7 F lidocaine 4 % topical patch 1 patch topical DAILY PRN pain 01/08/25 Unknown History (Aspercreme (lidocaine)) loperamide 2 mg capsule 2 mg PO Q4H PRN DIARRHEA 01/08/25 01/06/25 History loratadine 10 mg tablet 10 mg PO DAILY ALLERGIES 01/08/25 01/04/25 History (Allerclear) melatonin 3 mg tablet 3 mg PO PRN Insomnia 01/08/25 Unknown History naphazoline-glycerin 0.03 %-0.5 % 2 drp ophthalmic (eye) Q4H PRN 01/08/25 Unknown History eye drops (Clear Eyes Cooling ITCHY EYES Comfort) naproxen sodium 220 mg capsule 220 mg PO BID PRN pain 01/08/25 01/07/25 History (Aleve) ondansetron HCl 4 mg tablet 4 mg PO Q6H PRN nausea and vomiting 01/08/25 01/07/25 History pantoprazole 40 mg tablet,delayed 40 mg PO DAILY GASTRITIS 01/08/25 Unknown History release (Protonix) simethicone 125 mg tablet 125 mg PO Q8H PRN abdominal 01/08/25 12/25/24 History (Bicarsim Forte) distention vit A 300 mcg-C 200 mg-E 27 1 tab PO DAILY VERNAL 01/08/25 01/06/25 History mg-lutein 2 mg and minerals tablet CONJUNCTIVITIS (I-Hernan) Allergy/AdvReac Type Severity Reaction Status Date / Time Beta-Blockers Allergy Severe Other Verified 10/22/23 12:02 (Beta-Adrenergic Bloc Horse/Equine Containing AdvReac NEEDS Verified 10/22/23 12:00 Products FOLLOW-UP Sugars, Metabolically Active AdvReac Unknown Verified 10/22/23 12:00 Family History Other Lupus (systemic lupus erythematosus) Scleroderma Surgical History Hx of thymectomy Social History Smoking Status: Former smoker ROS Constitutional Constitutional: Reports fatigue, malaise and weakness; Denies anorexia, chills or fever(s) Eyes Eyes: Denies change in vision ENT HEENT: Denies dysphagia or headache(s) Cardiovascular Cardiovascular: Denies chest pain, dyspnea on exertion, edema, lightheadedness, orthopnea, palpitations, rapid heart rate or syncope Respiratory/Chest Respiratory/Chest: Denies cough, dyspnea or productive cough Gastrointestinal Gastrointestinal: Reports melena; Denies abdominal pain, coffee ground emesis, diarrhea, dyspepsia, hematemesis, hematochezia, nausea or vomiting Genitourinary Genitourinary: Denies burning urination or hematuria Neurologic Neurologic: Denies dizziness, focal weakness, headache(s), numbness, seizures or syncope Hematologic/Lymphatic Hematologic/Lymphatic: Reports anemia Vital Signs Vital Signs Vital Signs: 01/08/25 09:30 01/08/25 09:58 01/08/25 10:30 Temperature 97.6 F L Temperature Source Temporal Pulse Rate 108 H 102 H Respiratory Rate 18 18 Respiratory Pattern Normal Blood Pressure 155/62 H 124/61 H Blood Pressure Mean 93 82 Blood Pressure Source Pulse Ox 94 98 Oxygen Delivery Method Room Air 01/08/25 11:00 01/08/25 11:40 01/08/25 11:43 Temperature 98 F 98.3 F Temperature Source Oral Oral Pulse Rate 108 H 111 H 106 H Respiratory Rate 18 27 H 15 Respiratory Pattern Blood Pressure 116/78 97/58 L 99/58 L Blood Pressure Mean 90 71 71 Blood Pressure Source Monitor Pulse Ox 98 95 97 Oxygen Delivery Method Room Air Room Air 01/08/25 11:47 Temperature 98.3 F Temperature Source Pulse Rate 106 H Respiratory Rate 15 Respiratory Pattern Blood Pressure 99/58 L Blood Pressure Mean 71 Blood Pressure Source Pulse Ox 97 Oxygen Delivery Method Weight Weight: 156 lb 8.451 oz Body Mass Index (BMI) 27.7 Physical Exam Const alert, oriented x3 and no apparent distress Constitutional Narrative: visibly pale, animated. HEENT normocephalic, head/scalp atraumatic, hearing grossly normal bilaterally and moist oral mucous membranes Mouth: oral and palatal mucosa normal Eyes EOMs intact bilaterally and conjunctivae normal Neck supple and no JVD Resp normal respiratory effort, no use of accessory muscles and clear to auscultation bilaterally Cardio regular rate, regular rhythm, S1 normal heart sound, S2 normal heart sound and no murmurs GI normal to inspection, nondistended, normoactive bowel sounds, soft to palpation, non-tender and non-distended Extremity normal to inspection Neuro oriented x3 and CN's II-XII intact bilaterally Neuro Narrative: has chronic bilateral LE weakness due to myasthenia gravis Sensorium / Orientation: awake and alert Psych affect normal Results Lab / Micro Data 01/08/25 09:39 01/08/25 09:39 Labs: Laboratory Results - last 24 hr 01/08/25 09:39: WBC 11.6 H, RBC 1.77 L, Hgb 5.6 L*, Hct 17.4 L, MCV 98.3, MCH 31.6, MCHC 32.2, RDW Std Deviation 42.6, RDW Coeff of Meir 12.3, Plt Count 350, MPV 11.0, Immature Gran % (Auto) 0.500, Neut % (Auto) 72.0 H, Lymph % (Auto) 20.1, [place] % (Auto) 6.3, Eos % (Auto) 0.8, Baso % (Auto) 0.3, Absolute Neuts (auto) 8.3 H, Absolute Lymphs (auto) 2.33, Nucleated RBC % 0, PT 14.4, INR 1.1, APTT 24.3, Sodium 140, Potassium 4.2, Chloride 107, Carbon Dioxide 23.6, Anion Gap 9, BUN 32 H, Creatinine 0.61 L, Estim Creat Clear Calc 55.63, Est GFR (MDRD) Non-Af 92, BUN/Creatinine Ratio 52.6 H, Glucose 121 H, Calcium 9.0, Total Bilirubin 0.23, AST 20, ALT 21, Alkaline Phosphatase 63, Total Protein 5.4 L, Albumin 3.4, Globulin 2.1 L, Albumin/Globulin Ratio 1.6, Lipase 28, Blood Type O POSITIVE, Antibody Screen NEGATIVE, Crossmatch See Detail Micro: Microbiology 01/08/25 10:42 Stool Stool Occult Blood (RUTH ANN) - Final Occult Blood Positive Assessment & Plan Assessment/Plan (1) Acute anemia: (2) GI bleed: PLAN: Plan #Acute on chronic anemia due to GI bleed admitted with a complaint of anemia, per labs done in her SNF. She admitted to melena stools but denied any hematochezia, hematemesis or coffee ground emesis Hb was 5.6 on admission stool for occult blood positive. Check iron profile Transfusion return as appropriate blood cells. GI consulted. Placed on IV pantoprazole drip. Keep n.p.o. and hydrate with IV fluids. Patient says she has had anemia in the past requiring blood transfusions and had to have EGD and colonoscopy back in 2000 in [place] [employer]. She does not remember what it showed. CT abdomen and pelvis with contrast ordered by ED doctor. Patient refused this. When I spoke to patient about it she was concerned about the cost. I informed her that I felt it was medically necessary and she also had insurance. Patient then agreed to do it but subsequently changed her mind again. Gastroenterology consulted. Await recs. Critical care also consulted as patient is in the ICU. Hold any NSAIDs. #Hypertension: On amlodipine 10 mg daily. #History of myasthenia gravis currently on prior to statement #History of depression: On sertraline #History of chronic pain syndrome: On [place] at home. #History of chronic migraines without aura: On sumatriptan #DVT prophylaxis: SCDs. no anticoagulation due to anemia. COde status: full code Patient counseled extensively about different types of CODE STATUS including full code, DNR CCA and DNR CCA. Patient elects to be full code. Total [id number] time 16 minutes. Charges/Coding Visit Charges Inpatient E&M: 44443 Init Hosp L3 Procedures Hospitalists Procedures: 95941 Advncd Care Plan 30 Min
[2025-01-08] MEDS: 0.9% Normal Saline (1000mL) 1,000 ML 125 ML IV ×2 (14:08→21:01)
[2025-01-08] MEDS: Pantoprazole Sodium 80 MG in 0.9% Normal Saline (100mL Bag) 80 ML 10 MG CONT INF ×2 (14:08→21:00)
[2025-01-08] MEDS: HYDROcodone Bitartrate/Apap 5/325 Tablet PO (14:09)
--- NOTE | 2025-01-08 16:10 | PCMCONS.TICU ---
HPI Consult Data Date of Consult: 01/08/25 HPI Narrative Reason for Consultation: Severe anemia, ?GIB, intractable N, melena, poor PO intake x1 week HPI Narrative: 79Y F PMH myasthenia gravis & prior GIB with EGD in 2000 who presented from [place] with 1 week Hx of poor PO intake, nausea & melena. She denies fevers/chills/chest pain/SOB, abdominal pain, fever or chills, any coffee-ground emesis or any bright red bleeding per rectum. In the ED she was noted to have a Hgb of 5.6. She refused CT scan and is currently refusing EGD. She is concerned with costs, radiation exposure and the risk of getting meds that could worsen her MG. She is receiving PRBCs. Vitals stable. Continues to have severe nausea but did receive Zofran ~10 min ago. [facility] Medical History Anxiety Depression Chronic pain Osteoarthritis GERD (gastroesophageal reflux disease) Former smoker Pulmonary embolism Hypertension Migraines Anxiety and depression Hx of gastroesophageal reflux (GERD) Fibromyalgia Diabetes mellitus Myasthenia gravis Hx pulmonary embolism Home Medications ?Medication ?Instructions ?Recorded ?Last Taken ?Type montelukast 10 mg tablet 10 mg PO DAILY ALLERGIES 05/04/19 01/04/25 History sertraline 100 mg tablet 100 mg PO DAILY DEPRESSION 05/04/19 01/07/25 History albuterol sulfate 90 mcg/actuation 2 puff inhalation Q4H PRN 10/22/23 01/06/25 History aerosol inhaler shortness of breath or wheezing budesonide-formoterol HFA 80 2 puff inhalation BID DYSPNEA 10/22/23 01/07/25 History mcg-4.5 mcg/actuation aerosol inhaler estradiol 0.5 mg tablet 0.5 mg PO DAILY POSTMENOPAUSAL 10/22/23 01/06/25 History pyridostigmine bromide 60 mg tablet 60 mg PO Q8H FOR MUSCLE STRENGTH 10/22/23 01/07/25 History sumatriptan succinate 100 mg tablet 100 mg PO PRN MIGRAINE 10/22/23 Unknown History cholecalciferol (vitamin D3) 25 2,000 unit PO DAILY supplement 10/26/23 01/04/25 History mcg (1,000 unit) capsule (Vitamin D3) amlodipine 10 mg tablet 10 mg PO DAILY HTN #0 tabs 10/27/23 12/30/24 Rx acetaminophen 325 mg tablet 650 mg PO Q6H PRN pain 01/08/25 Unknown History cromolyn 4 % eye drops 2 drp ophthalmic (eye) Q6H PRN 01/08/25 12/24/24 History VERNAL CONJUNCTIVITIS fluticasone propionate 50 1 spray intranasal Q12H ALLERGY 01/08/25 01/07/25 History mcg/actuation nasal SYMPTOM spray,suspension hydrocodone-acetaminophen 5-325mg 1 tab PO Q6H PRN Pain 5-10 Or 01/08/25 01/07/25 History 5mg-325mg Fever > 100.7 F lidocaine 4 % topical patch 1 patch topical DAILY PRN pain 01/08/25 Unknown History (Aspercreme (lidocaine)) loperamide 2 mg capsule 2 mg PO Q4H PRN DIARRHEA 01/08/25 01/06/25 History loratadine 10 mg tablet 10 mg PO DAILY ALLERGIES 01/08/25 01/04/25 History (Allerclear) melatonin 3 mg tablet 3 mg PO PRN Insomnia 01/08/25 Unknown History naphazoline-glycerin 0.03 %-0.5 % 2 drp ophthalmic (eye) Q4H PRN 01/08/25 Unknown History eye drops (Clear Eyes Cooling ITCHY EYES Comfort) naproxen sodium 220 mg capsule 220 mg PO BID PRN pain 01/08/25 01/07/25 History (Aleve) ondansetron HCl 4 mg tablet 4 mg PO Q6H PRN nausea and vomiting 01/08/25 01/07/25 History pantoprazole 40 mg tablet,delayed 40 mg PO DAILY GASTRITIS 01/08/25 Unknown History release (Protonix) simethicone 125 mg tablet 125 mg PO Q8H PRN abdominal 01/08/25 12/25/24 History (Bicarsim Forte) distention vit A 300 mcg-C 200 mg-E 27 1 tab PO DAILY VERNAL 01/08/25 01/06/25 History mg-lutein 2 mg and minerals tablet CONJUNCTIVITIS (I-Hernan) Allergy/AdvReac Type Severity Reaction Status Date / Time Beta-Blockers Allergy Severe Other Verified 10/22/23 12:02 (Beta-Adrenergic Bloc Horse/Equine Containing AdvReac NEEDS Verified 10/22/23 12:00 Products FOLLOW-UP Sugars, Metabolically Active AdvReac Unknown Verified 10/22/23 12:00 Family History Other Lupus (systemic lupus erythematosus) Scleroderma Surgical History Hx of thymectomy Social History Smoking Status: Former smoker ROS ROS Narrative Full 12 point ROS completed and neg unless stated in HPI above. Objective Data Objective Data Vital Signs: Vital Signs Last response Temperature 36.8 C 01/08/25 15:49 Temperature Source Oral 01/08/25 15:49 Pulse Rate 88 01/08/25 16:00 Respiratory Rate 16 01/08/25 16:00 Respiratory Pattern Normal 01/08/25 09:58 Blood Pressure 115/48 L 01/08/25 16:00 Blood Pressure Mean 70 01/08/25 16:00 Blood Pressure Source Monitor 01/08/25 16:00 Blood Pressure Position Supine 01/08/25 16:00 Blood Pressure Location Left Arm 01/08/25 16:00 Pulse Ox 98 01/08/25 16:00 Oxygen Delivery Method Room Air 01/08/25 16:00 I&O: I&O Last 24 Hours 01/07/25 01/08/25 01/08/25 23:59 11:59 23:59 Intake Total 0 / 400 400 / 400 Balance 0 / 400 400 / 400 I&O: Total Stay 01/08/25 09:29 thru 01/08/25 15:49 Intake Total 400 Balance 400 Current Meds Ordered / Administered: Current meds ordered / Administered Generic Name Dose Route Start Last Admin Trade Name Freq PRN Reason Stop Dose Admin Acetaminophen 650 mg 01/08/25 12:54 Acetaminophen 325 Mg Tablet PO Q6H PRN PRN Pain 1-10 Or Fever >100.7 Hydrocodone Bitart/Acetaminophen 1 tablet 01/08/25 12:54 01/08/25 14:09 Hydrocodone Bitartrate/Apap 5/325 Tablet PO 1 tablet Q6H PRN Administration Pain 5-10 Or Fever > 100.7 F Albuterol Sulfate 2.5 mg 01/08/25 13:25 Albuterol 2.5 Mg/3 Ml Vial.Neb. INHALATION Q6HWA.RT WILLIE Budesonide 0.5 mg 01/08/25 13:25 Budesonide Respules 0.5 Mg/2 Ml Ampul.Neb. INHALATION Q12H.RT WILLIE Estradiol 0.5 mg 01/09/25 10:00 Estradiol 0.5 Mg Tablet PO DAILY [facility] Fluticasone Propionate 1 spray 01/08/25 22:00 Fluticasone 0.05% 1 [place] Nasal.Sry NASAL Q12 WILLIE Glycerin/Hypromellose/Polyethylene 2 drp 01/08/25 13:16 Glycerin/Hypromellose/[id number] 15 Ml Bottle OPHTHALMIC Q4H PRN ITCHY EYES Sodium Chloride 1,000 mls @ 125 mls/hr 01/08/25 12:54 01/08/25 14:08 IV 01/09/25 04:53 125 mls/hr .Q8H WILLIE Administration Pantoprazole Sodium 80 mg/ 100 mls @ 10 mls/hr 01/08/25 12:54 01/08/25 14:08 Sodium Chloride CONT INF 10 mls/hr Q10H WILLIE Administration Lidocaine 1 patch 01/08/25 13:15 Lidocaine 5% Patch TOPICAL DAILY PRN pain Loperamide HCl 2 mg 01/08/25 12:54 Loperamide 2 Mg Capsule PO Q4H PRN DIARRHEA/LOOSE STOOLS Loratadine 10 mg 01/09/25 10:00 Loratadine 10 Mg Tablet PO DAILY [facility] Melatonin 3 mg 01/08/25 22:00 Melatonin 3 Mg Tablet PO QHS PRN INSOMNIA Montelukast Sodium 10 mg 01/09/25 10:00 Montelukast 10 Mg Tablet PO DAILY [facility] Multivitamins/Minerals 1 cap 01/09/25 10:00 Multivitamin (Healthy Eyes) Capsule PO DAILY [facility] Nitroglycerin 0.4 mg 01/08/25 12:54 Nitroglycerin (Inpatient Use) 0.4 Mg Tab.Subl SL Q5M PRN CARDIAC/CHEST PAIN Ondansetron HCl 4 mg 01/08/25 13:16 01/08/25 15:53 Ondansetron Odt 4 Mg Tablet PO 4 mg Q6H PRN Administration nausea and vomiting Ondansetron HCl 4 mg 01/08/25 12:54 Ondansetron 4 Mg/2 Ml Vial IV Q8H PRN PRN NAUSEA/VOMITING Pyridostigmine [place] 60 mg 01/08/25 14:00 01/08/25 14:08 Pyridostigmine [place] 60 Mg Tablet PO 60 mg Q8 WILLIE Administration Rizatriptan Benzoate 10 mg 01/08/25 12:54 Rizatriptan Benzoate 10 Mg Tablet PO DAILY PRN PRN MIGRAINE SYMPTOMS Sertraline HCl 100 mg 01/09/25 10:00 Sertraline 100 Mg Tablet PO DAILY WILLIE Simethicone 120 mg 01/08/25 13:17 Simethicone 80 Mg Chewable Tablet PO Q8H PRN abdominal distention Sodium Chloride 10 - 40 ml 01/08/25 13:47 0.9% Saline Lock 10 Ml Syringe IV UD PRN SALINE FLUSH Lab / Micro Data 01/08/25 09:39 01/08/25 09:39 Labs: Laboratory Results - last 24 hr 01/08/25 09:39: WBC 11.6 H, RBC 1.77 L, Hgb 5.6 L*, Hct 17.4 L, MCV 98.3, MCH 31.6, MCHC 32.2, RDW Std Deviation 42.6, RDW Coeff of Meir 12.3, Plt Count 350, MPV 11.0, Immature Gran % (Auto) 0.500, Neut % (Auto) 72.0 H, Lymph % (Auto) 20.1, [place] % (Auto) 6.3, Eos % (Auto) 0.8, Baso % (Auto) 0.3, Absolute Neuts (auto) 8.3 H, Absolute Lymphs (auto) 2.33, Nucleated RBC % 0, PT 14.4, INR 1.1, APTT 24.3, Sodium 140, Potassium 4.2, Chloride 107, Carbon Dioxide 23.6, Anion Gap 9, BUN 32 H, Creatinine 0.61 L, Estim Creat Clear Calc 55.63, Est GFR (MDRD) Non-Af 92, BUN/Creatinine Ratio 52.6 H, Glucose 121 H, Calcium 9.0, Total Bilirubin 0.23, AST 20, ALT 21, Alkaline Phosphatase 63, Total Protein 5.4 L, Albumin 3.4, Globulin 2.1 L, Albumin/Globulin Ratio 1.6, Lipase 28, Blood Type O POSITIVE, Antibody Screen NEGATIVE, Crossmatch See Detail 01/08/25 09:39: Crossmatch See Detail Micro: Microbiology 01/08/25 10:42 Stool Stool Occult Blood (RUTH ANN) - Final Occult Blood Positive Assessment and Plan . Assessment and plan: PE: General: acute on chronically ill appearing elderly frail female in no distress HEENT: anicteric Sclera, nl nose; supple neck, no masses Cardiovascular: RRR; +S1/S2; No rubs, gallops; no displaced PM Respiratory: clear; no crackles, wheezes, or rhonchi Abdominal: Soft; Non-tender; Non distended; hypoBS x 4; No Hepatosplenomegaly Extremities: Warm, well perfused; No clubbing, cyanosis; capillary refill < 2 sec Skin: intact, no rashes Neurological: A&Ox3; no gross deficits appreciated A/P #Acute blood loss anemia: sp PRBC; F/U repeat Hgb #Suspected GIB: cont PPI IV BID; pending GI consult; counseled patient on the importance of EGD and she currently states she would be willing to proceed after talking to anesthesia team about sedation plan #Intractable nausea: cont antiemetics; get CT A/P (pt OK with imaging at this time) #Myasthenia gravis: cont home meds #Chronic anemia with prior Hx of transfusions and remote Hx EGD NPO SCDs, PPI Guarded prognosis Critical Care Time: 60 min The entirety of this encounter was done via Telemedicine
--- NOTE | 2025-01-08 16:22 | CT_ITS ---
PROCEDURE: ABDOMEN/PELVIS WITHOUT CONT 01/08/2025 REASON FOR EXAM: INTRACTABLE N/V TECHNIQUE: ABDOMEN/PELVIS WITHOUT CONT Noncontrast technique limits evaluation of the abdominal and pelvic viscera. Coronal and Sagittal reconstruction series were provided. One or more dose reduction techniques were used (e.g., Automated exposure control, adjustment of the mA and/or kV according to patient size, use of iterative reconstruction technique). RADIATION DOSE SUMMARY: CTDlvol: 12 mGy DLP: 629 mGycm FINDINGS: The peripheral soft tissues unremarkable. Degenerative changes of the spine. Grade 1 anterolisthesis of L4 on L5. Left adnexal 5.8 x 9.1 cm fluid collection. The liver is unremarkable. The gallbladder is not visualized. The pancreas, spleen, adrenals are unremarkable. Small bilateral renal calcifications likely representing nonobstructive calculi. No hydronephrosis. The urinary bladder is unremarkable. Normal caliber large and small bowel without surrounding inflammatory changes. CT/Abdomen/Pelvis without Cont IMPRESSION: Left adnexal cystic collection. Further characterization with ultrasound is re commended. No other acute abnormalities of the abdomen or pelvis. Reading Location: [id number]
[2025-01-08] MEDS: 0.9% Saline Lock 10 ML Syringe IV (17:07)
--- NOTE | 2025-01-08 17:37 | CON.PCM.GI_ITS ---
HPI Consult Data Date of Consult: 01/08/25 HPI Narrative Reason for Consultation: GI bleed HPI Narrative: SADE VALLES, is a 79-year-old woman with myasthenia gravis who presents with a complaint of black, tarry stools. Her Hb was down to 5.6. She has a history of myasthenia gravis and repeated GI bleeds in the past, requiring blood transfusion. She says she last had a colonoscopy and EGD in 2000 in [place], but has refused any since. Vitals in the ED were temp of 98.3F, NE of 100, BP of 120/80, RR of 18, and she was saturating at 94% on room air. CBC showed hemoglobin of 5.6 with a WBC of 11.6 and platelets of 350. INR is 1.1. Chemistry shows sodium of 142 potassium of 4.2 and bicarb of 23.6. Creatinine was 0.61. CT abdomen and pelvis was ordered by the ED doctor. Patient refused. When I reviewed patient's I spoke to her extensively about this and informed her that if there was any active GI bleeding source that could be taken care of by interventional radiology, the CT a abdomen and pelvis would help detect this. Patient was initially with lactate and said she would not do it because she felt it was just adding to her medical course. I explained to her that she did have insurance so this could cover it. However she wanted to know exactly how much it would cost. I explained to her that I did not have the information about exactly how much the CT would cause but I felt it was medically necessary under the circumstances. Patient then reluctantly agreed and I did speak to the ED doctor about ordering this. However patient subsequently declined this. She has been admitted to the ICU to be managed for acute on chronic anemia due to GI bleed. She was transfused with 1 unit of packed red blood cells in the ED. [facility] Medical History Anxiety Depression Chronic pain Osteoarthritis GERD (gastroesophageal reflux disease) Former smoker Pulmonary embolism Hypertension Migraines Anxiety and depression Hx of gastroesophageal reflux (GERD) Fibromyalgia Diabetes mellitus Myasthenia gravis Hx pulmonary embolism Home Medications ?Medication ?Instructions ?Recorded ?Last Taken ?Type montelukast 10 mg tablet 10 mg PO DAILY ALLERGIES 05/1101/04/25 History sertraline 100 mg tablet 100 mg PO DAILY DEPRESSION 1 07/05/18 01/07/25 History albuterol sulfate 90 mcg/actuation 2 puff inhalation Q 4H PRN 10/22/23 01/06/25 History aerosol inhaler shortness of breath or [place] ing budesonide-formoterol HFA 80 2 puff inhalation BID DYS PNEA 10/22/23 01/07/25 History mcg-4.5 mcg/actuation aerosol inhaler estradiol 0.5 mg tablet 0.5 mg PO DAILY POSTMENOPAUS [place] 10/22/23 01/06/25 History pyridostigmine bromide 60 mg tablet 60 mg PO Q8H FOR M USCLE STRENGTH 10/22/23 01/07/25 History sumatriptan succinate 100 mg tablet 100 mg PO PRN MIGR BRIAN 10/22/23 Unknown History cholecalciferol (vitamin D3) 25 2,000 unit PO DAILY givens pplement 10/26/23 01/04/25 History mcg (1,000 unit) capsule (Vitamin D3) amlodipine 10 mg tablet 10 mg PO DAILY HTN #0 tabs 0 10/27/23 12/30/24 Rx acetaminophen 325 mg tablet 650 mg PO Q6H PRN pain Unknown History cromolyn 4 % eye drops 2 drp ophthalmic (eye) Q6H P RN 01/08/25 12/24/24 History VERNAL CONJUNCTIVITIS fluticasone propionate 50 1 spray intranasal Q12H NURIS RGY 01/08/25 01/07/25 History mcg/actuation nasal SYMPTOM spray,suspension hydrocodone-acetaminophen 5-325mg 1 tab PO Q6H PRN Carlos n 5-10 Or 01/08/25 01/07/25 History 5mg-325mg Fever > 100.7 F lidocaine 4 % topical patch 1 patch topical DAILY PRN pain 01/08/25 Unknown History (Aspercreme (lidocaine)) loperamide 2 mg capsule 2 mg PO Q4H PRN DIARRHEA 01/06/25 History loratadine 10 mg tablet 10 mg PO DAILY ALLERGIES 01/04/25 History (Allerclear) melatonin 3 mg tablet 3 mg PO PRN Insomnia 5 Unknown History naphazoline-glycerin 0.03 %-0.5 % 2 drp ophthalmic (ey e) Q4H PRN 01/08/25 Unknown History eye drops (Clear Eyes Cooling ITCHY EYES Comfort) naproxen sodium 220 mg capsule 220 mg PO BID PRN pain 01/08/25 01/07/25 History (Aleve) ondansetron HCl 4 mg tablet 4 mg PO Q6H PRN nausea and vomiting 01/08/25 01/07/25 History pantoprazole 40 mg tablet,delayed 40 mg PO DAILY GASTR ITIS 01/08/25 Unknown History release (Protonix) simethicone 125 mg tablet 125 mg PO Q8H PRN abdominal 01/08/25 12/25/24 History (Bicarsim Forte) distention vit A 300 mcg-C 200 mg-E 27 1 tab PO DAILY VERNAL 12/2201/06/25 History mg-lutein 2 mg and minerals tablet CONJUNCTIVITIS (I-[place]ernan) Allergy/AdvReac Type Severity Reaction Status Date / Time Beta-Blockers Allergy Severe Other Verified 10/22/23 12:02 (Beta-Adrenergic Bloc Horse/Equine Containing AdvReac NEEDS Verified 10/22/23 12:00 Products FOLLOW-UP Sugars, Metabolically Active AdvReac Unknown Verified 10/22/23 12:00 Family History Other Lupus (systemic lupus erythematosus) Scleroderma Surgical History Hx of thymectomy Social History Smoking Status: Former smoker ROS Constitutional Constitutional: Denies fatigue, fever(s), poor appetite, weight gain or weight loss Gastrointestinal Gastrointestinal: Denies belching, bloating, change in bowel habits, change in stool character, chewing difficulty, coffee ground emesis, constipation, cramping, diarrhea, dyspepsia, dysphagia, early satiety, excessive flatus, fecal incontinence, heartburn, hematemesis, hematochezia, hemorrhoids, loose stools, melena, nausea, odynophagia, rectal bleeding, tenesmus, vomiting or weight changes Physical Exam Const alert, oriented x3 and no apparent distress Constitutional Narrative: visibly pale, animated. HEENT normocephalic, head/scalp atraumatic, hearing grossly normal bilaterally and moist oral mucous membranes Mouth: oral and palatal mucosa normal Eyes EOMs intact bilaterally and conjunctivae normal Neck supple and no JVD Resp normal respiratory effort, no use of accessory muscles and clear to auscultation bilaterally Cardio regular rate, regular rhythm, S1 normal heart sound, S2 normal heart sound and no murmurs GI normal to inspection, nondistended, normoactive bowel sounds, soft to palpation, non-tender and non-distended Extremity normal to inspection Neuro oriented x3 and CN's II-XII intact bilaterally Neuro Narrative: has chronic bilateral LE weakness due to myasthenia gravis Sensorium / Orientation: awake and alert Psych affect normal Lab / Micro Data 01/08/25 09:39 01/08/25 09:39 Labs: Laboratory Results - last 24 hr 01/08/25 09:39: WBC 11.6 H, RBC 1.77 L, Hgb 5.6 L*, Hct 17.4 L, MCV 98.3, MCH 31.6, MCHC 32.2, RDW Std Deviation 42.6, RDW Coeff of Meir 12.3, Plt Count 350, MPV 11.0, Immature Gran % (Auto) 0.500, Neut % (Auto) 72.0 H, Lymph % (Auto) 20.1, [place] % (Auto) 6.3, Eos % (Auto) 0.8, Baso % (Auto) 0.3, Absolute Neuts (auto) 8.3 H, Absolute Lymphs (auto) 2.33, Nucleated RBC % 0, PT 14.4, INR 1.1, APTT 24.3, Sodium 140, Potassium 4.2, Chloride 107, Carbon Dioxide 23.6, Anion Gap 9, BUN 32 H, Creatinine 0.61 L, Estim Creat Clear Calc 55.63, Est GFR (MDRD) Non-Af 92, BUN/Creatinine Ratio 52.6 H, Glucose 121 H, Calcium 9.0, Total Bilirubin 0.23, AST 20, ALT 21, Alkaline Phosphatase 63, Total Protein 5.4 L, Albumin 3.4, Globulin 2.1 L, Albumin/Globulin Ratio 1.6, Lipase 28, Blood Type O POSITIVE, Antibody Screen NEGATIVE, Crossmatch See Detail 01/08/25 09:39: Crossmatch See Detail Micro: Microbiology 01/08/25 10:42 Stool Stool Occult Blood (RUTH ANN) - Final Occult Blood Positive Assessment & Plan Assessment/Plan (1) Acute anemia: (2) GI bleed: PLAN: Plan 79-year-old with history of myasthenia gravis with fatigue, weakness and melanotic stools acute on chronic anemia due to GI bleed * admitted with a complaint of anemia, per labs done in her SNF. She admitted to melena stools but denied any hematochezia, hematemesis or coffee ground emesis * Hb was 5.6 on admission * stool for occult blood positive. Check iron profile * Transfusion return as appropriate blood cells. GI consulted. Placed on IV pantoprazole drip. * Keep n.p.o. and hydrate with IV fluids. Patient says she has had anemia in the past requiring blood transfusions and had to have EGD and colonoscopy back in 2000 in [place]. She does not remember what it showed. * CT abdomen and pelvis with contrast ordered by ED doctor. Patient refused this. When I spoke to patient about it she was concerned about the cost. I informed her that I felt it was medically necessary and she also had insurance. Patient then agreed to do it but subsequently changed her mind again. * Gastroenterology consulted. Await recs. Critical care also consulted as patient is in the ICU. * Hold any NSAIDs. * #Hypertension: On amlodipine 10 mg daily. #History of myasthenia gravis currently on prior to statement #History of depression: On sertraline #History of chronic pain syndrome: On [place] at home. #History of chronic migraines without aura: On sumatriptan #DVT prophylaxis: SCDs. no anticoagulation due to anemia. COde status: full code * Patient counseled extensively about different types of CODE STATUS including full code, DNR CCA and DNR CCA. Patient elects to be full code. * Total [id number] time 16 minutes.
--- NOTE | 2025-01-08 17:56 | PRE.ANES_ITS ---
ASA Classification* ASA Classification ASA Classification: 4 Assessment & Plan Anesthesia* Anesthesia Assessment Anesthesia Assessment: Discussed sedation and/or anesthesia options, risks, benefits, and alternatives with patient/parents/legal guardian/POA. Questions invited. The patient/parents/legal guardian/POA seems to understand and agrees to proceed with anesthesia plan. Reviewed the physical assessment, medical history, allergy history and patient home medications list prior to surgery/procedure/anesthetic and documented any changes. Performed airway and anesthesia risk assessments. Anesthesia Type Anesthesia Type: MAC History Source History Obtained from:: Patient and Chart Anesthesia Focused Assessment* Temperature: 98.3 F Pulse Rate: 94 Blood Pressure: 118/51 Respiratory Rate: 16 Pulse Ox: 95 Oxygen Delivery Method: Room Air Airway Assessment Mouth opens: >3 cm Mallampati Score: IV Teeth Condition: Missing (Edentulous) Neck Range of motion (ROM): Limited ROM (Somewhat decreased) Labs Anesthesia Preop lab: CBC WBC 11.6 K/mm3 (4.4-11.0) H 01/08/25 09:39 5 RBC 1.77 M/mm3 (4.2-5.4) L 01/08/25 09:39 01/08/25 Hgb 5.6 g/dL (12.0-15.0) L* 01/08/25 09:39 5 Hct 17.4 % (37-47) L 01/08/25 09:39 01/08/25 Plt Count 350 K/mm3 (150-450) 01/08/25 09:39 01/08/25 CHEMISTRY Potassium 4.2 mmol/L (3.3-5.1) 01/08/25 09:39 01/08/25 Sodium 140 mmol/L (133-145) 01/08/25 09:39 01/08/25 Magnesium 1.9 mg/dL (1.6-2.6) 10/26/23 05:42 10/26/23 Phosphorus 3.1 mg/dL (2.5-4.9) 10/26/23 05:42 10/26/23 BUN 32 mg/dL (4-19) H 01/08/25 09:39 01/08/25 Creatinine 0.61 mg/dL (0.70-1.20) L 01/08/25 09:39 Glucose 121 mg/dL (70-99) H 01/08/25 09:39 01/08/25 POC Glucose 120 mg/dL (74-106) H 10/29/23 06:05 10/29/23 COAG PT 14.4 SECONDS (11.7-14.9) 01/08/25 09:39 Pre-Assessment Diagnosis/Proposed Procedure Planned Operative Procedure(s): EGD Anesthesia History Anesthesia History - principal statistical scientist: Anesthesia History - principal statistical scientist Hx Hospitalization No 05/04/19 19:32 Any Problems With Anesthesia Cholinesterase deficiency You/Your Family Experience fever (hyperthermia) with Relationship Recent Exposure to Contagious Disease Does patient have nerve stimulator Patient instructed to have device shut off --Does patient have Pacemaker or ICD? When Was Last Pacemaker Check QUESTION #4 FULL TEXT: You/Your Family Experience fever (hyperthermia) with Anesthesia Last Oral Intake Last Oral intake: Last Oral Intake NPO since Meds taken in AM with sips of water? 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 - principal statistical scientist: PONV - principal statistical scientist Female HX of Motion Sickness HX of N/V After Surgery Non-Smoker Duration of Surgery greater than 60 minutes Number of Risk Factors PONV Score Height & Weight Height & Weight: Anesthesia: Height & Weight Height 5 ft 2.99 in 01/08/25 12:55 Weight: 62.596 kg 01/08/25 12:55 Body Mass Index (BMI) 24.4 01/08/25 12:55 Respiratory Assessment Respiratory Assessment - principal statistical scientist: Respiratory Tract Infection Hx - principal statistical scientist Hx Respiratory Tract Infection Any additional information?: Yes Hx Respiratory Tract Infection: No STOP Sleep Apnea STOP Sleep Apnea - principal statistical scientist: STOP Sleep Apnea - principal statistical scientist Hx Hypertension Yes 01/08/25 12:55 Hx Sleep Apnea No 01/08/25 12:55 CPAP BIPAP Do you snore loudly (louder No 01/08/25 12:55 than talking or can be heard Do you often feel tired/ No 01/08/25 12:55 fatigued/ sleepy during daytime? Has anyone observed you stop No 01/08/25 12:55 breathing during sleep? STOP Results Negative 01/08/25 12:55 QUESTION #5 FULL TEXT : Do you snore loudly (louder than talking or can be heard through closed doors)? Tobacco Use History Tobacco Use History - principal statistical scientist: Tobacco Use History - principal statistical scientist Tobacco Use Smoking Status Former smoker 01/08/25 13:18 Hx Tobacco Use No 01/08/25 12:55 Years Smoking Packs Smoked per Day Smoking Cessation Date was Yes - quit smoking within 15 01/08/25 13:18 within the last 15 years years Hx Smoking Cessation Date Hx Smoking Cessation Counseling Hematologic Medial History Hematologic Hx - principal statistical scientist: Hematologic Medical Hx - leather lacer Hx of Blood Transfusion No 01/08/25 12:55 Hx of Transfusion in last 3 No 01/08/25 12:55 Months Date of Last Transfusion (if within last 3 months) Ever experience any problems No 01/08/25 12:55 with transfusion(s)? Specify any problems Hx of Preganancy in last 3 N/A 01/08/25 12:55 Months Nurse Filling Out Transfusion [facility] 01/08/25 12:55 & Questions: Date: 01/08/25 01/08/25 12:55 Time: 13:46 01/08/25 12:55 Patient unable to answer at this time (ie. confused, unrespo /Reproduction History /Reproductive History - principal statistical scientist: /Reproductive Hx- principal statistical scientist Hx Now Gestational Age (in weeks): EDC: Hx Hx Para Hx Section SAB Active Medications Active Medications: Current Medications Generic Name Dose Route Start Last Admin Trade Name Freq PRN Reason Stop Dose Admin Acetaminophen 650 mg 01/08/25 12:54 Acetaminophen 325 Mg Tablet PO Q6H PRN PRN Pain 1-10 Or Fever >100.7 Hydrocodone Bitart/Acetaminophen 1 tablet 01/08/25 12:54 01/08/25 14:09 Hydrocodone Bitartrate/Apap 5/325 Tablet PO 1 tablet Q6H PRN Administration Pain 5-10 Or Fever > 100.7 F Albuterol Sulfate 2.5 mg 01/08/25 13:25 Albuterol 2.5 Mg/3 Ml Vial.Neb. INHALATION Q6HWA.RT WILLIE Budesonide 0.5 mg 01/08/25 13:25 Budesonide Respules 0.5 Mg/2 Ml Ampul.Neb. INHALATION Q12H.RT WILLIE Estradiol 0.5 mg 01/09/25 10:00 Estradiol 0.5 Mg Tablet PO DAILY ON LICENSE OF [facility] Fluticasone Propionate 1 spray 01/08/25 22:00 Fluticasone 0.05% 1 [place] Nasal.Sry NASAL Q12 WILLIE Glycerin/Hypromellose/Polyethylene 2 drp 01/08/25 13:16 Glycerin/Hypromellose/Lvh207 15 Ml Bottle OPHTHALMIC Q4H PRN ITCHY EYES Sodium Chloride 1,000 mls @ 125 mls/hr 01/08/25 12:54 01/08/25 17:07 IV 01/09/25 04:53 125 mls/hr .Q8H WILLIE Infusion Pantoprazole Sodium 80 mg/ 100 mls @ 10 mls/hr 01/08/25 12:54 01/08/25 17:07 Sodium Chloride CONT INF 10 mls/hr Q10H ON LICENSE OF [facility] Infusion Lidocaine 1 patch 01/08/25 13:15 Lidocaine 5% Patch TOPICAL DAILY PRN pain Loperamide HCl 2 mg 01/08/25 12:54 Loperamide 2 Mg Capsule PO Q4H PRN DIARRHEA/LOOSE STOOLS Loratadine 10 mg 01/09/25 10:00 Loratadine 10 Mg Tablet PO DAILY ON LICENSE OF [facility] Melatonin 3 mg 01/08/25 22:00 Melatonin 3 Mg Tablet PO QHS PRN INSOMNIA Montelukast Sodium 10 mg 01/09/25 10:00 Montelukast 10 Mg Tablet PO DAILY ON LICENSE OF [facility] Multivitamins/Minerals 1 cap 01/09/25 10:00 Multivitamin (Healthy Eyes) Capsule PO DAILY ON LICENSE OF [facility] Nitroglycerin 0.4 mg 01/08/25 12:54 Nitroglycerin (Inpatient Use) 0.4 Mg Tab.Subl SL Q5M PRN CARDIAC/CHEST PAIN Ondansetron HCl 4 mg 01/08/25 13:16 01/08/25 15:53 Ondansetron Odt 4 Mg Tablet PO 4 mg Q6H PRN Administration nausea and vomiting Ondansetron HCl 4 mg 01/08/25 12:54 Ondansetron 4 Mg/2 Ml Vial IV Q8H PRN PRN NAUSEA/VOMITING Pyridostigmine [place] 60 mg 01/08/25 14:00 01/08/25 14:08 Pyridostigmine [place] 60 Mg Tablet PO 60 mg Q8 WILLIE Administration Rizatriptan Benzoate 10 mg 01/08/25 12:54 Rizatriptan Benzoate 10 Mg Tablet PO DAILY PRN PRN MIGRAINE SYMPTOMS Sertraline HCl 100 mg 01/09/25 10:00 Sertraline 100 Mg Tablet PO DAILY WILLIE Simethicone 120 mg 01/08/25 13:17 Simethicone 80 Mg Chewable Tablet PO Q8H PRN abdominal distention Sodium Chloride 10 - 40 ml 01/08/25 13:47 01/08/25 17:07 0.9% Saline Lock 10 Ml Syringe IV 10 ml UD PRN Administration SALINE FLUSH PFSH Medical History Anxiety Depression Chronic pain Osteoarthritis GERD (gastroesophageal reflux disease) Former smoker Pulmonary embolism Hypertension Migraines Anxiety and depression Hx of gastroesophageal reflux (GERD) Fibromyalgia Diabetes mellitus Myasthenia gravis Hx pulmonary embolism Home Medications ?Medication ?Instructions ?Recorded ?Last Taken ?Type montelukast 10 mg tablet 10 mg PO DAILY ALLERGIES 05/1101/04/25 History sertraline 100 mg tablet 100 mg PO DAILY DEPRESSION 1 07/05/18 01/07/25 History albuterol sulfate 90 mcg/actuation 2 puff inhalation Q 4H PRN 10/22/23 01/06/25 History aerosol inhaler shortness of breath or wheez ing budesonide-formoterol HFA 80 2 puff inhalation BID DYS PNEA 10/22/23 01/07/25 History mcg-4.5 mcg/actuation aerosol inhaler estradiol 0.5 mg tablet 0.5 mg PO DAILY POSTMENOPAUS AL 10/22/23 01/06/25 History pyridostigmine bromide 60 mg tablet 60 mg PO Q8H FOR M USCLE STRENGTH 10/22/23 01/08/25 History sumatriptan succinate 100 mg tablet 100 mg PO PRN MIGR BRIAN 10/22/23 Unknown History cholecalciferol (vitamin D3) 25 2,000 unit PO DAILY givens pplement 10/26/23 01/04/25 History mcg (1,000 unit) capsule (Vitamin D3) amlodipine 10 mg tablet 10 mg PO DAILY HTN #0 tabs 0 10/27/23 12/30/24 Rx acetaminophen 325 mg tablet 650 mg PO Q6H PRN pain Unknown History cromolyn 4 % eye drops 2 drp ophthalmic (eye) Q6H P RN 01/08/25 12/24/24 History VERNAL CONJUNCTIVITIS fluticasone propionate 50 1 spray intranasal Q12H NURIS RGY 01/08/25 01/07/25 History mcg/actuation nasal SYMPTOM spray,suspension hydrocodone-acetaminophen 5-325mg 1 tab PO Q6H PRN Carlos n 5-10 Or 01/08/25 01/07/25 History 5mg-325mg Fever > 100.7 F lidocaine 4 % topical patch 1 patch topical DAILY PRN pain 01/08/25 Unknown History (Aspercreme (lidocaine)) loperamide 2 mg capsule 2 mg PO Q4H PRN DIARRHEA 01/06/25 History loratadine 10 mg tablet 10 mg PO DAILY ALLERGIES 01/04/25 History (Allerclear) melatonin 3 mg tablet 3 mg PO PRN Insomnia 5 Unknown History naphazoline-glycerin 0.03 %-0.5 % 2 drp ophthalmic (ey e) Q4H PRN 01/08/25 Unknown History eye drops (Clear Eyes Cooling ITCHY EYES Comfort) naproxen sodium 220 mg capsule 220 mg PO BID PRN pain 01/08/25 01/07/25 History (Aleve) ondansetron HCl 4 mg tablet 4 mg PO Q6H PRN nausea and vomiting 01/08/25 01/07/25 History pantoprazole 40 mg tablet,delayed 40 mg PO DAILY GASTR ITIS 01/08/25 Unknown History release (Protonix) simethicone 125 mg tablet 125 mg PO Q8H PRN abdominal 01/08/25 12/25/24 History (Bicarsim Forte) distention vit A 300 mcg-C 200 mg-E 27 1 tab PO DAILY VERNAL 12/2201/06/25 History mg-lutein 2 mg and minerals tablet CONJUNCTIVITIS (I-[place]) Allergy/AdvReac Type Severity Reaction Status Date / Time Beta-Blockers Allergy Severe Other Verified 10/22/23 12:02 (Beta-Adrenergic Bloc Horse/Equine Containing AdvReac NEEDS Verified 10/22/23 12:00 Products FOLLOW-UP Sugars, Metabolically Active AdvReac Unknown Verified 10/22/23 12:00 Family History Other Lupus (systemic lupus erythematosus) Scleroderma Surgical History Hx of thymectomy Social History Smoking Status: Former smoker Review of Systems (Anesthesia) ROS Narrative System reviewed and no additional complaints, except as documented.
--- NOTE | 2025-01-08 18:59 | OP.PROVAT_ITS ---
01/08/2025 Ishaan Bernabe [address] [place] [address] Re : Upper GI endoscopy procedure for Grace Rush Dear Dr. Bernabe This procedure was performed on Wednesday, January 08, 2025. My impressions and recommendations are as follows: Impressions : - Normal esophagus. - No gross lesions in the entire stomach. 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 Treated with a heater probe. Clip was placed. 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 - No specimens collected. Recommendations : - Return patient to ICU for ongoing care. - Full liquid diet today. - Continue present medications. - PPI drip for 24 hours - Carafate 3 times a day My findings are described in the full procedure note, which is enclosed. If I can be of further assistance, please feel free to contact me at . Sincerely, Brennen Foy, 01/08/2025 6:58:42 PM This report has been signed electronically.
--- NOTE | 2025-01-08 18:59 | OP.EGD_ITS ---
Patient Name: Grace Rush Procedure Date: 01/08/2025 6:33 PM Date of : 1945 Age: 79 Procedure: Upper GI endoscopy Indications: Iron deficiency anemia, Melena Providers: Brennen Foy DO Medicines: Monitored Anesthesia Care Patient Profile: This is a 79 year old female. Refer to note in patient chart for documentation of history and physical. Patient has symptoms. Her most recent EGD for treatment of bleeding. Complications: No immediate complications. Procedure: Pre-Anesthesia Assessment: - Prior to the procedure, a History and Physical was performed, and patient medications and allergies were reviewed. The patient is competent. The risks and benefits of the procedure and the sedation options and risks were discussed with the patient. All questions were answered and informed consent was obtained. Patient identification and proposed procedure were verified by the physician. Mental Status Examination: normal. Prophylactic Antibiotics: The patient does not require prophylactic antibiotics. Prior Anticoagulants: The patient has taken no anticoagulant or antiplatelet agents except for NSAID medication. ASA Grade Assessment: II - A patient with mild systemic disease. After reviewing the risks and benefits, the patient was deemed in satisfactory condition to undergo the procedure. The anesthesia plan was to use monitored anesthesia care (MAC). Immediately prior to administration of medications, the patient was re-assessed for adequacy to receive sedatives. The heart rate, respiratory rate, oxygen saturations, blood pressure, adequacy of pulmonary ventilation, and response to care were monitored throughout the procedure. The physical status of the patient was re-assessed after the procedure. After obtaining informed consent, the endoscope was passed under direct vision. Throughout the procedure, the patient's blood pressure, pulse, and oxygen saturations were monitored continuously. The colonoscope was introduced through the mouth, and advanced to the fourth part of the duodenum. Small bowel enteroscopy was deemed necessary. The upper GI endoscopy was accomplished without difficulty. The patient tolerated the procedure well. Scope In: 6:47:07 PM Scope Out: 6:54:24 PM Total Procedure Duration Time 0 hours 7 minutes 17 seconds Findings: The examined esophagus was normal. No gross lesions were noted in the entire examined stomach. A single large angiodysplastic lesion with bleeding was found in the first portion of the duodenum. Coagulation for hemostasis using heater probe was successful. To stop active bleeding, one hemostatic clip was successfully placed. 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 There was no bleeding at the end of the procedure. Impression: - Normal esophagus. - No gross lesions in the entire stomach. 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 Treated with a heater probe. Clip was placed. Clip boring mill operator for metal: Charlotte Zuujit. - No specimens collected. Recommendation: - Return patient to ICU for ongoing care. - Full liquid diet today. - Continue present medications. - PPI drip for 24 hours - Carafate 3 times a day Procedure Code(s): --- Professional --- 60107, Small intestinal endoscopy, enteroscopy beyond second portion of duodenum, not including ileum; with control of bleeding (eg, injection, bipolar cautery, unipolar cautery, laser, heater probe, stapler, plasma surveillance systems analyst) CPT copyright 2021 [employer]. All rights reserved. The codes documented in this report are preliminary and upon auctioneer automobile review may be revised to meet current compliance requirements. Brennen Foy DO 01/08/2025 6:58:42 PM This report has been signed electronically. Number of Addenda: 0 Note Initiated On: 01/08/2025 6:33 PM
--- NOTE | 2025-01-08 19:05 | PCM.POST.ANE ---
Anesthesia: Postop Eval I Current Vital Signs Temperature: 99.4 F Pulse Rate: 105 Blood Pressure: 92/59 Respiratory Rate: 16 Pulse Ox: 97 Oxygen Delivery Method: Room Air Assessment Airway patent: Yes Spontaneous unlabored respirations: Yes Mental status: Awake and Calm nausea: No Vomiting: No Anesthesia Complication: No Fluid Hydration Crystalloid volume administer (ml): 300 Total IV fluid infused: 300 Progress Note Anesthesia document: Postop Eval 1 completed: Yes
[2025-01-08] MEDS: Budesonide Respules 0.5 MG/2 ML AMPUL.NEB. INHALATION (19:56)
[2025-01-08] MEDS: Albuterol 2.5 MG/3 ML VIAL.NEB. INHALATION (19:56)
[2025-01-08] MEDS: Lidocaine 5% Patch 1 PATCH TOPICAL (20:58)
[2025-01-08] MEDS: Fluticasone 0.05% 1 SPRAY NASAL.SRY NASAL (20:59)
--- NOTE | 2025-01-08 21:02 | PCM.POSTANE2 ---
Anesthesia Postop Eval I Sum Postop Eval Completion status Anesthesia document: Postop Eval 1 completed: Yes Anesthesia Postop Eval I Summary Anesthesia Postop Eval I Summary: Anesthesia Postop Eval I: Assessment Summary Airway patent Yes 01/08/25 19:07 Spontaneous unlabored Yes 01/08/25 19:07 respirations Mental status Awake,Calm 01/08/25 19:07 nausea No 01/08/25 19:07 Vomiting No 01/08/25 19:07 Anesthesia Postop Eval I: Fluid Summary Crystalloid volume administer 300 01/08/25 19:07 (ml) Colloids volume administered ( ml) Blood Product volume administered (ml) Total IV fluid infused 300 01/08/25 19:07 Anesthesia Postop Eval I: Summary Notes Anesthesia Complication No 01/08/25 19:07 Anesthesia Complication Comment: Post-operative progress note Anesthesia: Postop Eval II Evaluation Mental status: Awake and Calm Pain Level: 0 nausea: No Vomiting: No Complications Anesthesia Complication: No
[2025-01-09] VITALS (20 sets, daily range): BP systolic 100–149; BP diastolic 37–89; PULSE 71–92; RESP 14–26; TEMP 36.4–36.9; O2SAT 92–99; BMI 26.5
[2025-01-09] MEDS: Pantoprazole Sodium 80 MG in 0.9% Normal Saline (100mL Bag) 80 ML 10 MG CONT INF ×2 (04:21→14:46)
[2025-01-09 06:29] LABS: Hematocrit 21.0 % (37-47); Hemoglobin 7.1 g/dL (12.0-15.0); Immature Granulocytes Count 0.070 X10^3/uL (0.0-0.0); Mean Corp Hgb Conc 33.8 g/dL (32-36); Mean Corpuscular Volume 94.6 fL (81-99); Mean Platelet Vol. 11.0 fl (6.2-12.0); NRBC Flagged by Analyzer 0 % (0-5); Platelet Count 283 K/mm3 (150-450); RBC Distribution Width CV 13.4 % (11.6-14.6); RBC Distribution Width SD 45.1 fl (35.1-43.9); Red Blood Count 2.22 M/mm3 (4.2-5.4); White Blood Count 11.3 K/mm3 (4.4-11.0)
[2025-01-09 06:53] LABS: Anion Gap 10 (5-15); BUN 17 mg/dL (4-19); BUN/Creat Ratio 36.8 RATIO (10-20); Calcium,Total 8.1 mg/dL (7.6-11.0); Carbon Dioxide 19.3 mmol/L (21.0-32.0); Chloride 107 mmol/L (98-108); Estimated Creatinine Clearance 53.20 ml/min (50-250); Glucose 91 mg/dL (70-99); Potassium 4.3 mmol/L (3.3-5.1)
[2025-01-09 06:58] LABS: Prothrombin Time (Protime)PT. 15.2 SECONDS (11.7-14.9)
--- NOTE | 2025-01-09 09:29 | CASEMGMT ---
Pt is from [facility]. RN CM to the pt's room at this time to discuss DC planning. Pt's son is currently on speaker phone. Inquired what the pt would like to do at the time of DC. Pt wishes to return to the same SNF and denies wanting to review a list of other local in network nursing home facilities. Pt and pt's son denies further questions or concerns at this time. [facility] DPA notified and plans to send updates via [employer].
--- NOTE | 2025-01-09 10:11 | PN_ITS ---
Subjective Subjective Patient seen and examined today. She had no active complaints. She did have the EGD yesterday which showed a bleeding angiodysplastic lesion which was cauterized. Hemoglobin today 7.1. She did end up having the CT abdomen and pelvis yesterday. Review of systems otherwise negative. Objective Data Objective Data Vital Signs: Vital Signs Temp Pulse Resp BP Pulse Ox O2 Del Method 97.9 F 71 19 H 112/46 L 94 Room Air 01/09/25 08:00 01/09/25 08:00 01/09/25 08:00 01/09/25 08:00 01/09/25 08:00 01/09/25 08:00 Oxygen Delivery Method Room Air Weight: 149 lb 11.102 oz Body Mass Index (BMI) 26.5 Intake & Output: Intake and Output for Last 24 Hours 01/07/25 01/08/25 01/09/25 23:59 23:59 23:59 Intake Total 1729.08 / 1729.08 1073.5 / 1073.5 Output Total 2 / 2 Balance 1727.08 / 1727.08 1073.5 / 1073.5 Lab / Micro Data 01/09/25 06:13 01/09/25 06:13 Labs: Laboratory Results - last 24 hr 01/08/25 09:39: WBC 11.6 H, RBC 1.77 L, Hgb 5.6 L*, Hct 17.4 L, MCV 98.3, MCH 31.6, MCHC 32.2, RDW Std Deviation 42.6, RDW Coeff of Meir 12.3, Plt Count 350, MPV 11.0, Immature Gran % (Auto) 0.500, Neut % (Auto) 72.0 H, Lymph % (Auto) 20.1, [place] % (Auto) 6.3, Eos % (Auto) 0.8, Baso % (Auto) 0.3, Absolute Neuts (auto) 8.3 H, Absolute Lymphs (auto) 2.33, Nucleated RBC % 0, PT 14.4, INR 1.1, APTT 24.3, Sodium 140, Potassium 4.2, Chloride 107, Carbon Dioxide 23.6, Anion Gap 9, BUN 32 H, Creatinine 0.61 L, Estim Creat Clear Calc 55.63, Est GFR (MDRD) Non-Af 92, BUN/Creatinine Ratio 52.6 H, Glucose 121 H, Calcium 9.0, Total Bilirubin 0.23, AST 20, ALT 21, Alkaline Phosphatase 63, Total Protein 5.4 L, Albumin 3.4, Globulin 2.1 L, Albumin/Globulin Ratio 1.6, Lipase 28, Blood Type O POSITIVE, Antibody Screen NEGATIVE, Crossmatch See Detail 01/08/25 09:39: Crossmatch See Detail 01/09/25 06:13: WBC 11.3 H, RBC 2.22 L, Hgb 7.1 L, Hct 21.0 L, MCV 94.6, MCH 32.0, MCHC 33.8, RDW Std Deviation 45.1 H, RDW Coeff of Meir 13.4, Plt Count 283, MPV 11.0, Immature Gran % (Auto) 0.600, Neut % (Auto) 76.6 H, Lymph % (Auto) 14.5 L, [place] % (Auto) 6.8, Eos % (Auto) 1.1, Baso % (Auto) 0.4, Absolute Neuts (auto) 8.7 H, Absolute Lymphs (auto) 1.64, Nucleated RBC % 0, PT Cancelled, INR Cancelled, Sodium 137, Potassium 4.3, Chloride 107, Carbon Dioxide 19.3 L, Anion Gap 10, BUN 17, Creatinine 0.47 L, Estim Creat Clear Calc 53.20, Est GFR (MDRD) Non-Af 98, BUN/Creatinine Ratio 36.8 H, Glucose 91, Calcium 8.1 01/09/25 06:40: PT 15.2 H, INR 1.2 Micro: Microbiology 01/08/25 10:42 Stool Stool Occult Blood (RUTH ANN) - Final Occult Blood Positive Radiography Diagnostic Testing: Radiology Impression Abdomen/Pelvis CT 01/08/25 16:22 IMPRESSION: Left adnexal cystic collection. Further characterization with ultrasound is recommended. No other acute abnormalities of the abdomen or pelvis. Reading Location: [facility] Physical Exam Const alert, oriented x3 and no apparent distress Constitutional Narrative: visibly pale, animated. HEENT normocephalic, head/scalp atraumatic, hearing grossly normal bilaterally and moist oral mucous membranes Eyes EOMs intact bilaterally and conjunctivae normal Neck supple and no JVD Resp normal respiratory effort, normal air movement, no use of accessory muscles and clear to auscultation bilaterally Resp Narrative: on room air. Cardio regular rate, regular rhythm, S1 normal heart sound, S2 normal heart sound and no murmurs GI normal to inspection, nondistended, normoactive bowel sounds, soft to palpation, non-tender and non-distended Extremity normal to inspection General Extremity: no tenderness to palpation of joints or extremities Neuro oriented x3 and CN's II-XII intact bilaterally Neuro Narrative: has chronic bilateral LE weakness due to myasthenia gravis Sensorium / Orientation: awake and alert Motor Exam: general weakness Psych affect normal Appearance: appropriate Assessment & Plan Assessment/Plan (1) Acute anemia: (2) GI bleed: PLAN: Plan #Acute on chronic anemia due to GI bleed * admitted with a complaint of anemia, per labs done in her SNF. She admitted to melena stools but denied any hematochezia, hematemesis or coffee ground emesis * Hb was 5.6 on admission. S/p transfusion of 2 units of packed red blood cells. Hemoglobin 7.1 this morning. * stool for occult blood positive. * She did have the CT of the abdomen and pelvis which showed a left adnexal cyst collection and further characterization with ultrasound recommended. 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 * Continue the Protonix drip for another 24 hours. Placed on Carafate 3 times daily. * Transfused with 1 more unit of packed red blood cell as hemoglobin is only 7.1. * Gastroenterology on board. Transfer out of ICU to PCU. * * #Hypertension: On amlodipine 10 mg daily. #History of myasthenia gravis: on pyridostigmine. Stable. #History of depression: On sertraline #History of chronic pain syndrome: On [place] at home. #History of chronic migraines without aura: On sumatriptan #DVT prophylaxis: SCDs. no anticoagulation due to anemia. COde status: full code * Disposition: Transfer to PCU today. Charges/Coding Visit Charges Inpatient E&M: 18018 Subs Hosp L2
--- NOTE | 2025-01-09 10:33 | NURSING ---
Patient refusing to take any oral medications at this time due to nausea. Pt had zoan earlier this am stated it did not work. Pt did eat jello and chicken broth this am and is stating lets see how that settles at this time before i try and take my medications.
--- NOTE | 2025-01-09 10:42 | CASEMGMT ---
SW update sent to [facility]. Nicki Limon
--- NOTE | 2025-01-09 11:26 | CASEMGMT ---
Discharge Planning [facility] will skill pt but she is able to return while they are waiting on it. Amy Driscoll DC Planning Asst.
[2025-01-09] MEDS: 0.9% Saline Lock 10 ML Syringe IV (13:50)
[2025-01-09] MEDS: Lidocaine 5% Patch 1 PATCH TOPICAL (13:50)
[2025-01-09] MEDS: Budesonide Respules 0.5 MG/2 ML AMPUL.NEB. INHALATION (19:31)
[2025-01-09] MEDS: Albuterol 2.5 MG/3 ML VIAL.NEB. INHALATION (19:31)
[2025-01-09] MEDS: HYDROcodone Bitartrate/Apap 5/325 Tablet PO (22:19)
[2025-01-10 03:00] VITALS: PULSE 73
[2025-01-10] MEDS: Pantoprazole Sodium 80 MG in 0.9% Normal Saline (100mL Bag) 80 ML 10 MG CONT INF (03:56)
[2025-01-10] MEDS: 0.9% Normal Saline (250mL Bag) 250 ML 15 ML IV (03:56)
[2025-01-10 04:32] VITALS: BP 134/59; PULSE 72; RESP 16; TEMP 36.7; O2SAT 94
[2025-01-10 05:37] VITALS: BMI 26.7
[2025-01-10 05:38] LABS: Hematocrit 25.5 % (37-47); Hemoglobin 8.6 g/dL (12.0-15.0); Immature Granulocytes Count 0.070 X10^3/uL (0.0-0.0); Mean Corp Hgb Conc 33.7 g/dL (32-36); Mean Corpuscular Volume 92.4 fL (81-99); Mean Platelet Vol. 10.9 fl (6.2-12.0); NRBC Flagged by Analyzer 0 % (0-5); Platelet Count 284 K/mm3 (150-450); RBC Distribution Width CV 13.8 % (11.6-14.6); RBC Distribution Width SD 44.7 fl (35.1-43.9); Red Blood Count 2.76 M/mm3 (4.2-5.4); White Blood Count 11.0 K/mm3 (4.4-11.0)
[2025-01-10] MEDS: HYDROcodone Bitartrate/Apap 5/325 Tablet PO (05:53)
[2025-01-10 06:01] LABS: Anion Gap 9 (5-15); BUN 7 mg/dL (4-19); BUN/Creat Ratio 14.9 RATIO (10-20); Calcium,Total 8.6 mg/dL (7.6-11.0); Carbon Dioxide 24.0 mmol/L (21.0-32.0); Chloride 106 mmol/L (98-108); Estimated Creatinine Clearance 53.38 ml/min (50-250); Glucose 94 mg/dL (70-99); Potassium 3.6 mmol/L (3.3-5.1)
[2025-01-10] MEDS: Albuterol 2.5 MG/3 ML VIAL.NEB. INHALATION (06:45)
[2025-01-10] MEDS: Budesonide Respules 0.5 MG/2 ML AMPUL.NEB. INHALATION (06:45)
[2025-01-10 06:47] VITALS: PULSE 75; RESP 16; O2SAT 94
[2025-01-10 08:31] VITALS: BP 140/52; PULSE 80; RESP 16; TEMP 36.7; O2SAT 95
--- NOTE | 2025-01-10 09:02 | CASEMGMT ---
Social Work- SW received copies of HCPOA from [facility] naming son, Wali, as agent. No LW at this time reported. Copy placed on chart. [facility]. [facility]
--- NOTE | 2025-01-10 09:30 | CASEMGMT ---
SW update sent to [facility] with note that the patient will return today. DEON Campos
--- NOTE | 2025-01-10 09:53 | CASEMGMT ---
Addendum entered by Amy Driscoll 01/10/25 10:31: *SW reviewed document prior to placing in chart. Amy Driscoll DC Planning Asst. Original Note: Advanced Directives HC POA received from [facility] and placed in pts chart. Amy Driscoll DC Planning Asst.
[2025-01-10] MEDS: Multivitamin (Healthy Eyes) Capsule 1 CAP PO (10:47)
[2025-01-10 11:58] VITALS: BP 140/52; PULSE 80; RESP 16; TEMP 36.7; O2SAT 95
[2025-01-10 12:00] VITALS: RESP 16
--- NOTE | 2025-01-10 12:08 | TREXTCAR_ITS ---
Diet Diet Order/Speech Therapy: INPATIENT Hospital Diet / Speech Therapy Order(s) 01/10/25 08:40 Diet: Regular - General Routine Orders/Code Status Enema Type: Fleetz Enema Frequency: Daily PRN Suppository Frequency: Daily PRN DC O2, CPAP, BIPAP needs Home O2 Discharge instructions: No Therapies Weight Bearing: Weight bearing as tolerated Physical Therapy: Eval and Treat Occupational Therapy: Eval and Treat Problem/Diagnosis (1) Acute anemia: Status: Acute Code(s): D64.9 - Anemia, unspecified (2) GI bleed: Status: Acute Code(s): K92.2 - Gastrointestinal hemorrhage, unspecified Plan #Acute on chronic anemia due to GI bleed * admitted with a complaint of anemia, per labs done in her SNF. She admitted to melena stools but denied any hematochezia, hematemesis or coffee ground emesis * Hb was 5.6 on admission. S/p transfusion of 2 units of packed red blood cells. Hemoglobin 7.1 this morning. * stool for occult blood positive. * She did have the CT of the abdomen and pelvis which showed a left adnexal cyst collection and further characterization with ultrasound recommended. 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 * Continue the Protonix drip for another 24 hours. Placed on Carafate 3 times daily. * Transfused with 1 more unit of packed red blood cell as hemoglobin is only 7.1. * Gastroenterology on board. Transfer out of ICU to PCU. * * #Hypertension: On amlodipine 10 mg daily. #History of myasthenia gravis: on pyridostigmine. Stable. #History of depression: On sertraline #History of chronic pain syndrome: On [place] at home. #History of chronic migraines without aura: On sumatriptan #DVT prophylaxis: SCDs. no anticoagulation due to anemia. COde status: full code * Disposition: Transfer to PCU today. Allergies/Procedures Done in Hospital Allergies Beta-Blockers (Beta-Adrenergic Bloc Allergy (Severe, Verified 10/22/23 12:02) Other M YASTHENIA GRAVIS Horse/Equine Containing Products Adverse Reaction (Verified 10/22/23 12:00) NEEDS FOLLOW-UP Sugars, Metabolically Active Adverse Reaction (Verified 10/22/23 12:00) Unknown Procedures: None Type of Care/Length of Stay Estimated LOS: Convalescent Care Less Than 30 days Type of Care Needed: Skilled Rehab Potential: Fair Prognosis: Fair Additional Orders/Day of Discharge Day of Discharge: 01/10/25 Dietary and Speech Recommendations Dietitian Recommendations/Changes: Recommend advanced diet as tolerated to regular. Will monitor weight trends. Discharge Plan Admission Admit Date/Time: 01/08/25 12:08 Primary Reason for Your Visit: acute upper GI bleed Attending Provider: Katy De La Rosa Primary Care Provider: Ishaan Bernabe Consulting Providers: Eric López; Cortez Ramos; Adan Rosa; Nicholas Graham; Jesus Clemens; Bishop Wheeler; Aidan Arteaga; Lashawn Pierce; Sina Duarte; Fidel Benoit; Zeb Dubose; Linnea Valentino; Sinai Gurrola; Eliza Ha; Joseph Taylor; Red Lyles; Marquise Montano; Christiano Palmer; Nayla Mays; Ghada Meyers; Joseph Montiel; Moses Turner; Mynor Fields Instructions Patient Instructions: EGD (Upper Endoscopy): Post-op Additional Instructions / Restrictions: eat a diet rich in iron foods Discharge Orders/Prescriptions Prescriptions: New pantoprazole 40 mg Tablet,Delayed Release (Dr/Ec) 40 mg PO BID Qty: 60 2RF sucralfate [Carafate] 1 gram tablet 1 g PO TID Qty: 90 2RF Continued sertraline 100 MG tablet 100 mg PO DAILY montelukast 10 MG tablet 10 mg PO DAILY albuterol sulfate 90 mcg/actuation HFA aerosol inhaler 2 puff inhalation Q4H PRN (Reason: shortness of breath or wheezing) pyridostigmine bromide 60 mg tablet 60 mg PO Q8H estradiol 0.5 mg tablet 0.5 mg PO DAILY budesonide-formoterol 80-4.5 mcg/actuation HFA aerosol inhaler 2 puff INHALATION BID sumatriptan succinate 100 mg tablet 100 mg PO PRN cholecalciferol (vitamin D3) [Vitamin D3] 25 mcg (1,000 unit) capsule 2,000 unit PO DAILY amlodipine 10 mg Tablet 10 mg PO DAILY Qty: 0 0RF acetaminophen 325 mg tablet 650 mg PO Q6H PRN (Reason: pain) Clear Eyes Cooling Comfort 0.03-0.5 % drops 2 drp ophthalmic (eye) Q4H PRN (Reason: ITCHY EYES) cromolyn 4 % drops 2 drp ophthalmic (eye) Q6H PRN (Reason: VERNAL CONJUNCTIVITIS) fluticasone propionate 50 mcg/actuation spray,suspension 1 spray INTRANASAL Q12H I-Hernan 300 mcg-200 mg-27 mg-2 mg tablet 1 tab PO DAILY Rx Instructions: administer after a meal loratadine [Allerclear] 10 mg tablet 10 mg PO DAILY lidocaine [Aspercreme (lidocaine)] 4 % adhesive patch,medicated 1 patch topical DAILY PRN (Reason: pain) Rx Instructions: LEFT HAND AND LEFT SHOULDER Bicarsim Forte 125 mg tablet 125 mg PO Q8H PRN (Reason: abdominal distention) ondansetron HCl 4 mg tablet 4 mg PO Q6H PRN (Reason: nausea and vomiting) loperamide 2 mg Capsule 2 mg PO Q4H PRN (Reason: DIARRHEA) hydrocodone-acetaminophen 5-325 mg Tablet 1 tab PO Q6H PRN (Reason: Pain 5-10 Or Fever > 100.7 F) melatonin 3 mg Tablet 3 mg PO PRN Discontinued naproxen sodium [Aleve] 220 mg capsule 220 mg PO BID PRN (Reason: pain) Rx Instructions: HOLD FROM 01/08/25 TO 01/15/25 pantoprazole [Protonix] 40 mg tablet,delayed release (DR/EC) 40 mg PO DAILY Referrals / Follow Up: Ishaan Bernabe MD [Primary Care Provider] - Within 1 Week Brennen Foy DO [Med Staff - Active Staff] - Within 2 Weeks Beena Whitfield PA [Non-Staff] - Within 1 Week Disposition Disposition (needs filled in before D/C Order can be placed): [facility]
--- NOTE | 2025-01-10 12:52 | CASEMGMT ---
Discharge Planning Discharge orders, signed med list, and transport time sent to [facility]. Physicians will transport pt by wheelchair at 3p. Nursing, SW, pt, and her son (Wali) updated. Amy Driscoll DC Planning Asst.
--- NOTE | 2025-01-10 13:21 | CASEMGMT ---
Social Work Physician feels that pt is ready for discharge today.? DCA notified of discharge readiness. DCA to complete all final arrangements and notifications. Pt will return skilled, however, facility has given permission for pt to return while awaiting precert. Disposition:[facility], skilled level of care NATALIIA Gupta
--- NOTE | 2025-01-10 13:47 | DS.PCM_ITS ---
Providers Date of Admission: 01/08/25 Date of Discharge: 01/10/25 Primary Care Physician: Dr. Ishaan Bernabe MD Consultations 01/08/25 13:40 Consult: Gastroenterology Routine Consulting Provider: Richard Gastroenterology Reason for Consult: acute on chronic anemia EMERGENT Consult: No Notified: Yes Date Notified: 01/08/25 Time Notified: 13:41 Method of Notification: Text 01/08/25 13:42 Consult: Chucking Lathe Operator / Pulmonary Medicine Routine Consulting Provider: Intensivists/Pulmonary Med Reason for Consult: acute on chronic anemia EMERGENT Consult: No Notified: Yes Date Notified: 01/08/25 Time Notified: 13:54 Method of Notification: Answering Service Reason For Visit: ACUTE ON CHRONIC ANEMIA DUE TO GI BLEED Diagnosis Discharge Diagnosis (1) Acute anemia: Status: Acute Code(s): D64.9 - Anemia, unspecified (2) GI bleed: Status: Acute Code(s): K92.2 - Gastrointestinal hemorrhage, unspecified Plan #Acute on chronic anemia due to GI bleed * admitted with a complaint of anemia, per labs done in her SNF. She admitted to melena stools but denied any hematochezia, hematemesis or coffee ground emesis * Hb was 5.6 on admission. S/p transfusion of 2 units of packed red blood cells. Hemoglobin 7.1 this morning. * stool for occult blood positive. * She did have the CT of the abdomen and pelvis which showed a left adnexal cyst collection and further characterization with ultrasound recommended. 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 * Continue the Protonix drip for another 24 hours. Placed on Carafate 3 times daily. * Transfused with 1 more unit of packed red blood cell as hemoglobin is only 7.1. * Gastroenterology on board. Transfer out of ICU to PCU. * * #Hypertension: On amlodipine 10 mg daily. #History of myasthenia gravis: on pyridostigmine. Stable. #History of depression: On sertraline #History of chronic pain syndrome: On [place] at home. #History of chronic migraines without aura: On sumatriptan #DVT prophylaxis: SCDs. no anticoagulation due to anemia. COde status: full code * Disposition: Transfer to PCU today. Medications at Discharge Home Medications montelukast 10 mg tablet 10 mg PO DAILY ALLERGIES 05/04/19 sertraline 100 mg tablet 100 mg PO DAILY DEPRESSION 05/04/19 albuterol sulfate 90 mcg/actuation aerosol inhaler 2 puff inhalation Q4H PRN shortness of breath or wheezing 10/22/23 budesonide-formoterol HFA 80 mcg-4.5 mcg/actuation aerosol inhaler 2 puff inhalation BID DYSPNEA 10/22/23 estradiol 0.5 mg tablet 0.5 mg PO DAILY POSTMENOPAUSAL 10/22/23 pyridostigmine bromide 60 mg tablet 60 mg PO Q8H FOR MUSCLE STRENGTH 10/22/23 sumatriptan succinate 100 mg tablet 100 mg PO PRN MIGRAINE 10/22/23 cholecalciferol (vitamin D3) 25 mcg (1,000 unit) capsule (Vitamin D3) 2,000 unit PO DAILY supplement 10/26/23 amlodipine 10 mg tablet 10 mg PO DAILY HTN #0 tabs 10/27/23 acetaminophen 325 mg tablet 650 mg PO Q6H PRN pain 01/08/25 cromolyn 4 % eye drops 2 drp ophthalmic (eye) Q6H PRN VERNAL CONJUNCTIVITIS 01/08/25 fluticasone propionate 50 mcg/actuation nasal spray,suspension 1 spray intranasal Q12H ALLERGY SYMPTOM 01/08/25 hydrocodone-acetaminophen 5-325mg 5mg-325mg 1 tab PO Q6H PRN Pain 5-10 Or Fever > 100.7 F 01/08/25 lidocaine 4 % topical patch (Aspercreme (lidocaine)) 1 patch topical DAILY PRN pain 01/08/25 loperamide 2 mg capsule 2 mg PO Q4H PRN DIARRHEA 01/08/25 loratadine 10 mg tablet (Allerclear) 10 mg PO DAILY ALLERGIES 01/08/25 melatonin 3 mg tablet 3 mg PO PRN Insomnia 01/08/25 naphazoline-glycerin 0.03 %-0.5 % eye drops (Clear Eyes Cooling Comfort) 2 drp ophthalmic (eye) Q4H PRN ITCHY EYES 01/08/25 ondansetron HCl 4 mg tablet 4 mg PO Q6H PRN nausea and vomiting 01/08/25 simethicone 125 mg tablet (Bicarsim Forte) 125 mg PO Q8H PRN abdominal distention 01/08/25 vit A 300 mcg-C 200 mg-E 27 mg-lutein 2 mg and minerals tablet (I-Hernan) 1 tab PO DAILY VERNAL CONJUNCTIVITIS 01/08/25 pantoprazole 40 mg tablet,delayed release 40 mg PO BID #60 tabs 01/10/25 sucralfate 1 gram tablet (Carafate) 1 g PO TID #90 tabs 01/10/25 Hospital Course Operations None Procedures EGD Summary of Care Provided Minutes Spent on Discharge: 55 Hospital Course: SADE VALLES, is a 79 F with a PMH as outlined who presents with a complaint of black, tarry stools. Her Hb was down to 5.6. She has a history of myasthenia gravis and repeated GI bleeds in the past, requiring blood transfusion. She says she last had a colonoscopy and EGD in 2000 in [place], but has refused any since. She denied any abdominal pain, fever or chills, any coffee-ground emesis or any bright red bleeding per rectum. She denies any weight loss. Review of systems otherwise negative. Vitals in the ED were temp of 98.3F, IL of 100, BP of 120/80, RR of 18, and she was saturating at 94% on room air. CBC showed hemoglobin of 5.6 with a WBC of 11.6 and platelets of 350. INR is 1.1. Chemistry shows sodium of 142 potassium of 4.2 and bicarb of 23.6. Creatinine was 0.61. CT abdomen and pelvis was ordered by the ED doctor. Patient refused. When I reviewed patient's I spoke to her extensively about this and informed her that if there was any active GI bleeding source that could be taken care of by interventional radiology, the CT a abdomen and pelvis would help detect this. Patient was initially with lactate and said she would not do it because she felt it was just adding to her medical course. I explained to her that she did have insurance so this could cover it. However she wanted to know exactly how much it would cost. I explained to her that I did not have the information about exactly how much the CT would cause but I felt it was medically necessary under the circumstances. Patient then reluctantly agreed and I did speak to the ED doctor about ordering this. However patient subsequently declined this. She has been admitted to the ICU to be managed for acute on chronic anemia due to GI bleed. She was transfused with 1 unit of packed red blood cells in the ED. Gastroenterology was consulted and she was transfused with one more unit of PRBC. She had EGD which showed normal esophagus, no gross lesions in the stomach and a single, bleeding angiodysplastic lesion in the duodenum treated with a heater probe, and a clip was placed. The protonix drip was continued for another 24 hours and she was switched to pO protonix. She was transfused with a third unit of PRBC. She remained stable and her Hb was 8.6 prior to discharge. She was switched to PO protonix 40mg bid and also placed on carafate tid. She is to follow up with her PCP and customer service representative teller within 1-2 weeks. Patient seen and examined. She had no active complaints and had an uneventful night. Review of systems is otherwise negative. Labs and vitals reviewed. Home meds reviewed and reconciled. Patient is refusing to take iron tablets and so she was advised to eat a diet rich in iron. Physical Exam Const alert, oriented x3 and no apparent distress General Appearance: cooperative, comfortable and well kempt Exam Limitations: no limitations HEENT normocephalic, head/scalp atraumatic, hearing grossly normal bilaterally and moist oral mucous membranes Mouth: oral and palatal mucosa normal Eyes EOMs intact bilaterally and conjunctivae normal Neck supple and no JVD Resp normal respiratory effort, normal air movement, no use of accessory muscles and clear to auscultation bilaterally Resp Narrative: on room air. Cardio regular rate, regular rhythm, S1 normal heart sound, S2 normal heart sound and no murmurs GI normal to inspection, nondistended, normoactive bowel sounds, soft to palpation, non-tender and non-distended Extremity normal to inspection General Extremity: no tenderness to palpation of joints or extremities Neuro oriented x3 and CN's II-XII intact bilaterally Neuro Narrative: has chronic bilateral LE weakness due to myasthenia gravis Sensorium / Orientation: awake and alert Motor Exam: general weakness Psych affect normal Appearance: appropriate Weight / BMI Weight Weight: 150 lb 12.739 oz Body Mass Index (BMI) 26.7 ABG / Lab / Microbiology Data 01/10/25 04:51 01/10/25 04:51 Laboratory: Laboratory Results - last 24 hr 01/08/25 09:39: Crossmatch See Detail 01/08/25 09:39: Crossmatch See Detail 01/10/25 04:51: WBC 11.0, RBC 2.76 L, Hgb 8.6 L, Hct 25.5 L, MCV 92.4, MCH 31.2, MCHC 33.7, RDW Std Deviation 44.7 H, RDW Coeff of Meir 13.8, Plt Count 284, MPV 10.9, Immature Gran % (Auto) 0.600, Neut % (Auto) 70.6 H, Lymph % (Auto) 18.0 L, [place] % (Auto) 7.9, Eos % (Auto) 2.4, Baso % (Auto) 0.5, Absolute Neuts (auto) 7.7, Absolute Lymphs (auto) 1.97, Nucleated RBC % 0, Sodium 139, Potassium 3.6, Chloride 106, Carbon Dioxide 24.0, Anion Gap 9, BUN 7, Creatinine 0.50 L, Estim Creat Clear Calc 53.38, Est GFR (MDRD) Non-Af 96, BUN/Creatinine Ratio 14.9, Glucose 94, Calcium 8.6 Microbiology: Microbiology 01/08/25 10:42 Stool Stool Occult Blood (RUTH ANN) - Final Occult Blood Positive D/C Instructions Discharge Activity: Return to Normal Activity DC O2, CPAP, BIPAP Needs Home O2 Discharge instructions: No DC home with Oxygen: No Meaningful Use Info Meaningful Use Meaningful Use Diagnoses (Choose all that apply): None applicable Discharge Plan Admission Admit Date/Time: 01/08/25 12:08 Primary Reason for Your Visit: acute upper GI bleed Attending Provider: Katy De La Rosa Primary Care Provider: Ishaan Bernabe Consulting Providers: Eric López; Cortez Ramos; Adan Rosa; Nicholas Graham; Jesus Clemens; Bishop Wheeler; Aidan Arteaga; Lashawn Pierce; Sina Duarte; Fidel Benoit; Zeb Dubose; Linnea Valentino; Sinai Gurrola; Eliza Ha; Joseph Taylor; Red Lyles; Marquise Montano; Christiano Palmer; Nayla Mays; Ghada Meyers; Joseph Montiel; Moses Turner; Mynor Fields Instructions Patient Instructions: EGD (Upper Endoscopy): Post-op Additional Instructions / Restrictions: eat a diet rich in iron foods Discharge Orders/Prescriptions Prescriptions: New pantoprazole 40 mg Tablet,Delayed Release (Dr/Ec) 40 mg PO BID Qty: 60 2RF sucralfate [Carafate] 1 gram tablet 1 g PO TID Qty: 90 2RF Continued sertraline 100 MG tablet 100 mg PO DAILY montelukast 10 MG tablet 10 mg PO DAILY albuterol sulfate 90 mcg/actuation HFA aerosol inhaler 2 puff inhalation Q4H PRN (Reason: shortness of breath or wheezing) pyridostigmine bromide 60 mg tablet 60 mg PO Q8H estradiol 0.5 mg tablet 0.5 mg PO DAILY budesonide-formoterol 80-4.5 mcg/actuation HFA aerosol inhaler 2 puff INHALATION BID sumatriptan succinate 100 mg tablet 100 mg PO PRN cholecalciferol (vitamin D3) [Vitamin D3] 25 mcg (1,000 unit) capsule 2,000 unit PO DAILY amlodipine 10 mg Tablet 10 mg PO DAILY Qty: 0 0RF acetaminophen 325 mg tablet 650 mg PO Q6H PRN (Reason: pain) Clear Eyes Cooling Comfort 0.03-0.5 % drops 2 drp ophthalmic (eye) Q4H PRN (Reason: ITCHY EYES) cromolyn 4 % drops 2 drp ophthalmic (eye) Q6H PRN (Reason: VERNAL CONJUNCTIVITIS) fluticasone propionate 50 mcg/actuation spray,suspension 1 spray INTRANASAL Q12H I-Hernan 300 mcg-200 mg-27 mg-2 mg tablet 1 tab PO DAILY Rx Instructions: administer after a meal loratadine [Allerclear] 10 mg tablet 10 mg PO DAILY lidocaine [Aspercreme (lidocaine)] 4 % adhesive patch,medicated 1 patch topical DAILY PRN (Reason: pain) Rx Instructions: LEFT HAND AND LEFT SHOULDER Bicarsim Forte 125 mg tablet 125 mg PO Q8H PRN (Reason: abdominal distention) ondansetron HCl 4 mg tablet 4 mg PO Q6H PRN (Reason: nausea and vomiting) loperamide 2 mg Capsule 2 mg PO Q4H PRN (Reason: DIARRHEA) hydrocodone-acetaminophen 5-325 mg Tablet 1 tab PO Q6H PRN (Reason: Pain 5-10 Or Fever > 100.7 F) melatonin 3 mg Tablet 3 mg PO PRN Discontinued naproxen sodium [Aleve] 220 mg capsule 220 mg PO BID PRN (Reason: pain) Rx Instructions: HOLD FROM 01/08/25 TO 01/15/25 pantoprazole [Protonix] 40 mg tablet,delayed release (DR/EC) 40 mg PO DAILY Referrals / Follow Up: Ishaan Bernabe MD [Primary Care Provider] - Within 1 Week Brennen Foy DO [Med Staff - Active Staff] - Within 2 Weeks Beena Whitfield PA [Non-Staff] - Within 1 Week Disposition Disposition (needs filled in before D/C Order can be placed[facility] Charges/Coding Visit Charges Inpatient E&M: 51009 Disch Hosp >30min
--- NOTE | 2025-01-10 13:58 | NURSING ---
Charting reviewed and approved.
--- NOTE | 2025-01-10 14:31 | NURSING ---
attempted to call report for pt discharge. went to voicemail. will attempt at a later time.
--- NOTE | 2025-01-10 14:40 | NURSING ---
called report to [facility] for pt to return.
[2025-01-10] MEDS: Lidocaine 5% Patch 1 PATCH TOPICAL (14:53)
== END 2025-01-10 17:40 | DRG 378 ==
LOC: ED 12:19 → ICU 12:30 → PCU 01-09 11:15
PROVIDERS: Internal Medicine Gastroenterology; Admitting Provider Student in an Organized Health Care Education/Training Program; Emergency Provider Student in an Organized Health Care Education/Training Program; PCP Family Medicine; Visit Provider Student in an Organized Health Care Education/Training Program
PROC: 0DJ08ZZ Inspection of Upper Intestinal Tract, Via Natural or Artificial Opening Endoscopic (ICD-10-PCS; CPT 43235; principal; 2025-01-08 16:55)
DX: K31.811 Angiodysplasia of stomach and duodenum with bleeding (principal); D62 Acute posthemorrhagic anemia; E11.9 Type 2 diabetes mellitus without complications; F32.A Depression, unspecified; I10 Essential (primary) hypertension; G70.00 Myasthenia gravis without (acute) exacerbation; F41.9 Anxiety disorder, unspecified; G43.709 Chronic migraine without aura, not intractable, without status migrainosus; K21.9 Gastro-esophageal reflux disease without esophagitis; G89.4 Chronic pain syndrome; Z87.891 Personal history of nicotine dependence; Z86.711 Personal history of pulmonary embolism; Z79.899 Other long term (current) drug therapy; Z79.51 Long term (current) use of inhaled steroids
CPT/HCPCS: 36415; 74176; 80048; 80053; 82274; 83690; 85025; 85610; 85730; 86850; 86900; 86901; 94640; 97802; 99285; C1889; P9016; A4216; J2405

== ENCOUNTER → 2025-01-08 | Outpatient (REF) | payer MEDICARE, MEDICAID, SELFPAY ==
[2025-01-08 08:39] LABS: Hematocrit 17.2 % (37-47); Mean Corp Hgb Conc 31.4 g/dL (32-36); Mean Corpuscular Volume 99.4 fL (81-99); Mean Platelet Vol. 11.4 fl (6.2-12.0); POSITIVE COUNT YES; Platelet Count 362 K/mm3 (150-450); RBC Distribution Width CV 12.1 % (11.6-14.6); RBC Distribution Width SD 42.7 fl (35.1-43.9); Red Blood Count 1.73 M/mm3 (4.2-5.4); White Blood Count 11.2 K/mm3 (4.4-11.0)
[2025-01-08 08:48] LABS: Hemoglobin 5.4 g/dL (12.0-15.0)
[2025-01-08 08:59] LABS: AST(SGOT) 19 U/L (<=31); Alanine Aminotransfer ALT/SGPT 17 U/L (<=34); Albumin, Serum 3.2 g/dL (3.4-4.8); Alkaline Phosphatase 60 U/L (35-104); Anion Gap 10 (5-15); BUN 33 mg/dL (4-19); BUN/Creat Ratio 55.3 RATIO (10-20); Calcium,Total 8.8 mg/dL (7.6-11.0); Carbon Dioxide 22.5 mmol/L (21.0-32.0); Chloride 106 mmol/L (98-108); Globulin 2.0 g/dL (2.2-4.2); Glucose 121 mg/dL (70-99); Potassium 4.0 mmol/L (3.3-5.1)
== END ==
LOC: OLS.WCC 06:20
PROVIDERS: PCP Physician Assistant; Visit Provider Family Medicine
DX: R53.83 Other fatigue (principal)
CPT/HCPCS: 36415; 80053; 85027

== ENCOUNTER → 2025-01-17 | Outpatient (REF) | payer MEDICARE, MEDICAID, SELFPAY ==
[2025-01-17 07:19] LABS: Hematocrit 29.3 % (37-47); Hemoglobin 9.3 g/dL (12.0-15.0); Mean Corp Hgb Conc 31.7 g/dL (32-36); Mean Corpuscular Volume 93.6 fL (81-99); Mean Platelet Vol. 10.4 fl (6.2-12.0); Platelet Count 449 K/mm3 (150-450); RBC Distribution Width CV 13.5 % (11.6-14.6); RBC Distribution Width SD 46.0 fl (35.1-43.9); Red Blood Count 3.13 M/mm3 (4.2-5.4); White Blood Count 8.9 K/mm3 (4.4-11.0)
[2025-01-17 08:15] LABS: Anion Gap 8 (5-15); BUN 11 mg/dL (4-19); BUN/Creat Ratio 19.3 RATIO (10-20); Calcium,Total 8.6 mg/dL (7.6-11.0); Carbon Dioxide 24.5 mmol/L (21.0-32.0); Chloride 108 mmol/L (98-108); Glucose 132 mg/dL (70-99); Potassium 3.8 mmol/L (3.3-5.1); Vitamin D,25 Hydroxy 57.7 ng/mL (30-100)
== END ==
LOC: OLS.WCC 05:00
PROVIDERS: PCP Family Medicine; Visit Provider Family Medicine
DX: D64.9 Anemia, unspecified (principal)
CPT/HCPCS: 36415; 80048; 82306; 85027

== ENCOUNTER → 2025-04-16 05:00 | Outpatient (REF) | payer MEDICARE, MEDICAID, SELFPAY ==
--- OUTSIDE RECORDS SUMMARY | 2025-04-16 03:21 | XMS RPT_ITS | CCD ---
Author Organization [facility]ini[facility] Care Team Providers Care Business Intelligence Etl Developer Name Role Phone Beena Whitfield PA-C Primary Care Provider Beena WHITFIELD Primary Care Unavailable Beena WHITFIELD Attending Unavailable Beena WHITFIELD Attending Unavailable SELF Referring Unavailable WHITFIELDBeena Primary Care Unavailable WHITFIELDBeena Referring Unavailable Beena WHITFIELD Primary Care Unavailable Beena WHITFIELD Attending Unavailable Beena WHITFIELD Primary Care Unavailable SELF Referring Unavailable LIZZIE CARDOZA Attending Unavailable Beena WHITFIELD Primary Care Unavailable Beena WHITFIELD Referring Unavailable Beena WHITFIELD Primary Care Unavailable Beena Nash Primary Care Provider Ishaan Bernabe MD Attending Provider Unavailable Ishaan Bernabe MD Referring Provider Unavailable Beena Nash Primary Care Provider Ishaan Bernabe MD Attending Provider Unavailable Beena Nash Primary Care Provider Ishaan Bernabe MD Attending Provider Unavailable Beena Nash Primary Care Provider Ishaan Bernabe MD Attending Provider Unavailable Dr. Xuan Mcdaniels MD Emergency Provider Unavailab Dr. Ishaan Trinidad MD Primary Care Provider Rj CAGLE, Dr. Katy Turner Admit Provider [phone] Dr. Katy De La Rosa MD Attending Provider Dr. Eric López MD Other Provider Dr. Cortez Ramos MD Other Provider Dr. Adan Rosa MD Other Provider Dr. Nicholas Graham DO Other Provider Jayleen CAGLE, Dr. Jesus Glynn Other Provider [phone] Liam CAGLE, Dr. Alas Other Provider Jenni CAGLE, Dr. Bermudez Other Provider Stan CAGLE, Dr. Hardin Other Provider Felicia CAGLE, Dr. Andino Other Provider Cy CAGLE, Dr. Parra Other Provider Sedrick CAGLE, Dr. Carrington Other Provider Chelsy CAGLE, Dr. Yarbrough Other Provider Galileo CAGLE, Dr. Rawls Other Provider Unavailabl bobbi Ha MD, Dr. Kay Other Provider [phone] Brandon CAGLE, Dr. Ruiz Other Provider [phone] Trupti CAGLE, Dr. Moon Other Provider Dusty CAGLE, Dr. Camarillo Other Provider [phone] Estela URBINA, Dr. Alvarado Other Provider Tabatha CAGLE, Dr. Winslow Other Provider Mira CAGLE, Dr. Urrutia Other Provider [phone] Tiana URBINA, Dr. Ruiz Other Provider Johnny CAGLE, Dr. Lopes Other Provider Donnie CAGLE, Dr. Lowe Other Provider Rj CAGLE, Dr. Katy Turner Other Provider Danii URBINA, Dr. Hutton Attending Provider Katy De La Rosa Attending Unavailable Ishaan Bernabe Primary Care Unavailable Eric López Consulting Unavailable Katy De La Rosa Admitting Unavailable Cortez Ramos Consulting Unavailable Adan Rosa Consulting Unavailable Nicholas Graham Consulting Unavailable Jesus Clemens Consulting Unavailable Bishop Wheeler Consulting Unavailable Aidan Arteaga Consulting Unavailable Habtegebriel, Lashawn Consulting Unavailab le Dand, Sina Consulting Unavailable Benoit, Fidel Consulting Unavailable Dubose, Zeb Consulting Unavailable Chelsy, Linnea Consulting Unavailable Aljundi, Lamia Consulting Unavailable Ha, Eliza Consulting Unavailable Brandon, Joseph Consulting Unavailable Irukulla, Red Consulting Unavailable Dusty, Marquise Consulting Unavailable Dhesi, Christiano Consulting Unavailable Mays, Sujoy Consulting Unavailable [place], [place]oley[place] Consulting Unavailable Fernstrom, Joseph Consulting Unavailable Johnny, Moses Consulting Unavailable Donnie, Mynor Consulting Unavailable Koram, Katy Yue Consulting Unavailable Beena Nash Primary Care Unavailable Ishaan Abraham Attending Unavailable Ishaan Bernabe Primary Care Unavailable Ishaan Abraham Attending Unavailable Ishaan Abraham Attending Unavailable Beena Nash Primary Care Unavailable Federicoam, Katy Yue Admitting Unavailable Ishaan Bernabe Primary Care Unavailable Rj, Katy Yue Attending Unavailable Eric López Consulting Unavailable Cortez Ramos Consulting Unavailable Adan Rosa Consulting Unavailable Nicholas Garham Consulting Unavailable Jesus Clemens Consulting Unavailable Bishop Wheeler Consulting Unavailable Jenni, Aidan Consulting Unavailable Habtegebriel, Lashawn Consulting Unavailab le Dand, Sina Consulting Unavailable Benoit, Fidel Consulting Unavailable Dubose, Zeb Consulting Unavailable Chelsy, Linnea Consulting Unavailable Aljundi, Lamia Consulting Unavailable Ha, Eliza Consulting Unavailable Brandon, Joseph Consulting Unavailable Irukulla, Red Consulting Unavailable Dusty, Marquise Consulting Unavailable Dhesi, Christiano Consulting Unavailable Mays, Sujoy Consulting Unavailable [place], [place]oley[place] Consulting Unavailable Fernstrom, Joseph Consulting Unavailable Johnny, Moses Consulting Unavailable Donnie, Mynor Consulting Unavailable Beena Nash Primary Care Unavailable Ishaan Abraham Attending Unavailable Beena Nash Primary Care Unavailable Ishaan Abraham Referring Unavailable Ishaan Abraham Attending Unavailable Beena Nash Primary Care Unavailable Ishaan Abraham Attending Unavailable Beena Nash Primary Care Unavailable Ishaan Abraham Attending Unavailable Brennen Foy Attending Unavailable Rj, Katy Yue Referring Unavailable Allergies Allergy Classification Reported Allergen(s) Allergy Type Date of Onset Reaction(s) Facility (1 source) HORSE DANDER; Translations: [HORSE DANDER] Propensity to adverse reactions to drug (disorder) 9 [facility] Repository (6 sources) Adrenergic Beta-Antagonists Allergy to substance 4 Other [facility] Comment on above: Beena SANCHEZ (6 sources) Horse/Equine Containing Products Propensity to adverse reactions 4 NEEDS FOLLOW-UP [facility] (7 sources) Sugars, Metabolically Active; Translations: [Sugars, Metabolically Active] Propensity to adverse reactions 4 Unknown [facility] (1 source) Adrenergic Beta-Antagonists Drug allergy (disorder) 4 [facility] Repository (1 source) Horse/Equine Containing Products Drug allergy (disorder) 4 [facility] Repository Medications Current Medications Medication Drug Class(es) Dates Sig (Normalized) Sig (Original) acetaminophen 325 mg oral tablet (20 sources) Start: 01-08-2025 take 2 tablets by mouth every six hours as needed for pain Acetaminophen 325 mg tablet Active 650 mg PO EVERY 6 HOURS as needed for pain January 08, 2025 12:00am take 1 tablet by lillian th every eight hours as needed acetaminophen 650 mg CR tablet Take 650 mg by mouth every 8 hours as needed. 0 Active Comment on above: Take 650 mg by mouth every 8 hours as needed. acetaminophen 325 mg / HYDROcodone bitartrate 5 mg oral tablet (20 sources) Opioid Agonist Start: 10-27-2023 End: 01-08-2025 Hydrocodone-Acetamin ophen 5-325 mg Tablet Active 1 {tbl} PO EVERY 6 HOURS as needed for Pain 5-10 Or Fever > 100.7 F January 08, 2025 12:00am Start: 07-13-2023 End: 10-11-2023 take 1 tablet [...] for pain for up to 90 days. [id number] 200 actuat albuterol 0.09 mg/actuat metered dose inhaler (20 sources) beta2-Adrenergic Agonist Start: 10-22-2023 Albuterol Sulfate 90 mcg/actuation HFA aerosol inhaler Active 2 NMA INHALATION Q4H as needed for shortness of breath or wheezing October 22, 2023 12:00am Start: 07-03-2021 End: [...] as needed. amLODIPine 10 mg oral tablet (6 sources) Dihydropyridine Calcium Channel Lyndsey Start: 10-27-19 24 take 1 tablet by mouth once daily Amlodipine 10 mg Tablet Active 10 mg PO DAILY 0 0 October 27, 2023 12:00am HTN atropine sulfate 0.025 mg / diphenoxylate hydrochloride [...] TWICE A DAY October 22, 2023 12:00am DYSPNEA Start: 10-22-2023 Budesonide-For moterol 80-4.5 mcg/actuation HFA aerosol inhaler Active 2 [...] Apply to affected ar ea. As needed cholecalciferol 0.025 mg oral capsule (20 sources) Vitamin D Start: 10-26-19 take 1 capsule by mouth once daily Cholecalciferol (Vitamin D3) (Vitamin D3) 25 mcg (1,000 unit) capsule Active 2000 U PO DAILY October 26, 2023 12:00am supplement Start: 10-26-2023 [facility] Cholecalciferol (Vitamin D3) (Vitamin D3) 25 mcg (1,000 unit) capsule Active 6000 U PO DAILY October 26, 2023 12:00am supplement take 1 capsule by mo ut once daily Cholecalciferol, Vitamin D3, 50 mcg (2,000 unit) cap Take 6,000 Units by mouth once daily. 0 Active take 3 capsules by [facility] once daily Cholecalciferol, Vitamin D3, (VITAMIN D-3) 2,000 unit cap Take 6,000 Units by mouth once daily. 0 Active Comment on above: Take 6,000 Units by mouth once daily. cromolyn sodium 40 mg/ml ophthalmic solution (20 sources) Mast Cell Stabilizer Start: take 4 drop(s) into the eye(s) every six hours as needed Cromolyn 4 % drops Active 2 NMA OPHTHALMIC EVERY 6 HOURS as needed for VERNAL CONJUNCTIVITIS January 08, 2025 12:00am Start: 01-24-2021 End: 11-13-2022 Cromolyn Sodium (CROLOM) 4 % ophthalmic solution Indications: Chronic asthmatic bronchitis (HCC) Use 1-2 Drops in both eyes four times daily. 10 mL 3 11/13/2022 Active Comment on above: Use 1-2 Drops in bot h eyes four times daily. dexamethasone 1 mg/ml / neomycin 3.5 mg/ml / polymyxin b [id number] unt/ml ophthalmic suspension (20 sources) Aminoglycoside Antibacterial, Polymyxin-class Antibacterial, Corticosteroid Start: take 3.5 mg into the eye(s) three to four times daily as needed neomycin/polymyx in b/dexametha(MAXI TROL 3.5 MG/ML-10,000 UNIT/ML-0.1% EYE DROPS,SUSPENSION ) 1-2 drops 3-4 times a day as [...] mg PO DAILY October 22, 2023 12:00am POSTMENOPAUSAL Start: 07-03-2021 End: 07-13-2023 take 1 tablet by mouth once daily Estradiol (ESTRACE) 0.5 mg tablet Take 1 tablet by mouth once daily. 90 tablet 1 07/13/2023 Active Comment on above: Take 1 tablet by lillian th once daily. fluticasone propionate 0.05 mg/actuat metered dose nasal spray (20 sources) Corticosteroid Start: 01-08-2025 Fluticasone Propionate 50 mcg/actuation spray,suspension Active 1 NMA INTRANASAL Q12H January 08, 2025 12:00am ALLERGY SYMPTOM Start: 04-01-2021 End: 09-03-2022 take 2 spray(s) nasal route once daily fluticasone (FLONASE) 50 mcg/actuation nasal spray Indications: Chronic asthmatic bronchitis (HCC) Use 2 Sprays in each nostril once daily. 18.2 mL 3 09/03/2022 Active Comment on above: Use 2 Sprays in each nostril once daily. glycerin 5 mg/ml / naphazoline hydrochloride 0.3 mg/ml ophthalmic solution (2 sources) Non-Standardized Chemical Allergen Start: take 0.03-0.5 drop(s) into the eye(s) every four hours as needed Naphazoline-Glyceri n (Clear Eyes Cooling Comfort) 0.03-0.5 % drops Active 2 NMA OPHTHALMIC Q4H as needed for ITCHY EYES January 08, 2025 12:00am lidocaine 0.04 mg/mg medicated patch (2 sources) Antiarrhythmic, Amide Local Anesthetic Start: Lidocaine (Aspercreme (Lidocaine)) 4 % adhesive patch,medicated Active 1 NMA TOPICAL DAILY as needed for pain January 08, 2025 12:00am LEFT HAND AND LEFT SHOULDER lisinopril 10 mg oral tablet (20 sources) Angiotensin Converting Enzyme Inhibitor Start: take 1 tablet by mouth once daily lisinopril (ZESTRIL) 10 mg tablet Take 1 tablet by mouth once daily. 90 tablet 1 07/13/2023 Active Start: 05-04-2019 End: 01-08-2025 take 1 tablet by mouth once daily Lisinopril 20 MG tablet Discontinued 20 mg PO DAILY May 04, 2019 1:00am January 08, 2025 10:12am Comment on above: Take 1 tablet by lillian th once daily. loperamide hydrochloride 2 mg oral capsule (8 sources) Opioid Agonist Start: take 1 capsule by mouth every four hours as needed for diarrhea Loperamide 2 mg Capsule Active 2 mg PO Q4H as needed for DIARRHEA January 08, 2025 12:00am Start: 10-27-2023 End: 01-08-2025 take 1 capsule by mouth once daily as needed for diarrhea Loperamide 2 mg Capsule Discontinued 2 mg PO DAILY NEEDED as needed for DIARRHEA 0 0 October 27, 2023 12:00am January 08, 2025 10:12am loratadine 10 mg oral tablet (2 sources) Start: 01-08-2025 take 1 tablet by mouth once daily Loratadine (Allerclear) 10 mg tablet Active 10 mg PO DAILY January 08, 2025 12:00am ALLERGIES 12 hr loratadine 5 mg / pseudoephedrine sulfate 120 mg extended release oral tablet (20 sources) alpha-Adrenerg ic Agonist Start: 11-27-2021 End: 03-30-2023 take 1 tablet by mouth twice daily [...] 60 tablet 3 05/27/2021 Active Start: 05-04-2019 End: 01-08-2025 take 1 tablet by mouth every twelve hours Loratadine-Pseudoephedrine 1 EACH tablet extended release 12 hr Discontinued 1 NMA PO TWICE A DAY May 04, 2019 1:00am January 08, 2025 10:02am Comment on above: Take 1 tablet by lillian twice daily. No generic requesting brand name Take 1 tablet by lillian two times a day. No generic requesting brand name melatonin 3 mg oral tablet (8 sources) Start: 4 End: 5 Melatonin 3 mg Tablet Active 3 mg PO NEEDED January 08, 2025 12:00am Insomnia metFORMIN hydrochloride 500 mg oral tablet (20 [...] above: Take 1 tablet by lillian twice daily with meals. . montelukast 10 mg oral tablet (20 sources) Leukotriene Receptor Antagonist Start: 9 End: 4 take 1 tablet by mouth once daily Montelukast 10 MG tablet Active 10 mg PO DAILY May 04, 2019 1:00am ALLERGIES Comment on above: Take 1 tablet by lillian th daily at bedtime. ondansetron 4 mg oral tablet (20 sources) Serotonin-3 Receptor Antagonist Start: take 1 tablet by mouth every six hours as needed for nausea and vomiting Ondansetron Hcl 4 mg tablet Active 4 mg PO EVERY 6 HOURS as needed for nausea and vomiting January 08, 2025 12:00am Start: 04-21-2023 End: 07-13-2023 take 1 tablet by mouth every eight [...] Take 1 tablet by lillian th every 8 hours as needed. OTC PRODUCT (20 sources) OTC PRODUCT Inst aflex Advanced Joint Support (collagen, turmeric, resveratrol, black peper, bosellia, hyaluronic acid) 0 Active Comment on above: Instaflex Advanced J oint Support (collagen, turmeric, resveratrol, black peper, bosellia, hyaluronic acid) pantoprazole 40 mg delayed release oral tablet (3 sources) Proton Pump Inhibitor Start: take 1 tablet by mouth twice daily Pantoprazole 40 mg Tablet,Delayed Release (Dr/Ec) Active 40 mg PO TWICE A DAY 60 2 January 10, 2025 12:00am Start: 01-08-2025 End: 01-10-2025 take 1 tablet by mouth once daily Pantoprazole (Protonix) 40 mg tablet,delayed release (DR/EC) Discontinued 40 mg PO DAILY January 08, 2025 12:00am January 10, 2025 12:05pm GASTRITIS phenylephrine hydrochloride 25 mg/ml ophthalmic solution (1 source) alpha-1 Adrenergic Agonist Start: 03-10-2023 End: 03-11-2023 PHENYLephrine 2.5 % 1 Drop (AK-DILATE, JEFFREY-SYNEPHRINE) proparacaine hydrochloride 5 mg/ml ophthalmic solution (1 source) Local Anesthetic Start: 03-10-2023 End: 03-11-2023 proparacaine 0.5 % 1 Drop (ALCAINE) pyridostigmine bromide 60 mg oral tablet (20 sources) Start: 10-22-2023 take 1 tablet by mouth every eight hours Pyridostigmine [place] 60 mg tablet Active 60 mg PO Q8H October 22, 2023 12:00am FOR MUSCLE STRENGTH Start: 10-22-2023 take 1 tablet by lillian th three times daily as needed Pyridostigmine [place] 60 mg tablet Active 60 mg PO [...] 1 tablet by mouth once daily Pyridostigmine [place] 180 MG tablet extended release Discontinued 180 [...] mg PO DAILY May 04, 2019 1:00am DEPRESSION Comment on above: Take 1 tablet by lillian th once daily. simethicone 125 mg oral tablet (2 sources) Start: 01-08-2025 take 1 tablet by mouth every eight hours as needed Simethicone (Bicarsim Forte) 125 mg tablet Active 125 mg PO Q8H as needed for abdominal distention January 08, 2025 12:00am sucralfate 1000 mg oral tablet (1 source) Aluminum Complex Start: 01-10-2025 take 1 tablet by mouth three times daily Sucralfate (Carafate) 1 gram tablet Active 1 g PO THREE TIMES A DAY 90 2 January 10, 2025 12:00am SUMAtriptan 100 mg oral tablet (20 sources) Serotonin-1b and Serotonin-1d Receptor Agonist Start: 10-22-2023 Sumatriptan Succinate 100 mg tablet Active 100 mg PO NEEDED October 22, 2023 12:00am MIGRAINE Start: 02-22-2023 End: 07-13-2023 SUMAtriptan (IMITREX) 100 [...] above: Take 1 tablet by lillian th as needed. Take 1 tablet (100 m g) by mouth as needed. tropicamide 10 mg/ml ophthalmic solution (1 source) Anticholinergic Start: 03-10-2023 End: 03-11-2023 tropicamide 1 % 1 Drop (MYDRIACYL) Vit A,C And O-Zcuope-Svjyhtoi (I-Hernan) 300 mcg-200 mg-27 mg-2 mg tablet (2 sources) Start: 01-08-2025 Vit A,C And F-Vdsjzg-Rowercyh (I-[place]an) 300 mcg-200 mg-27 mg-2 mg tablet Active 1 {tbl} PO DAILY January 08, 2025 12:00am VERNAL CONJUNCTIVITIS administer after a meal Completed/Discontinued Medications Medication Drug Class(es) Dates Sig (Normalized) Sig (Original) cefdinir 300 mg oral capsule (6 sources) Cephalosporin Antibacterial Start: 10-27-2023 End: 01-08-2025 take 1 capsule by mouth twice daily Cefdinir 300 mg capsule Discontinued 300 mg PO TWICE A DAY 6 0 October 27, 2023 12:00am January 08, 2025 9:55am cephalexin 500 mg oral capsule (6 sources) Cephalosporin Antibacterial Start: 05-04-2019 End: 10-22-2023 take 1 capsule by mouth every twelve hours Cephalexin 500 MG capsule Discontinued 500 mg PO EVERY 12 HOURS 14 0 May 04, 2019 1:00am October 22, 2023 12:05pm dextromethorphan hydrobromide 3 mg/ml / promethazine hydrochloride 1.25 mg/ml oral solution (20 sources) Phenothiazine, Uncompetitive H-naymho-R-aspartat e Receptor Antagonist, Sigma-1 Agonist Start: 09-11-2021 [...] same 12h as Clariten D). estrogens, conjugated (long-term) 0.3 mg oral tablet (6 sources) Estrogen Start: 05-04-2019 End: 10-22-2023 take 1 tablet by mouth once daily Conjugated Estrogens 0.3 MG tablet Discontinued 0.3 NMA PO DAILY May 04, 2019 1:00am October 22, 2023 11:54am naproxen sodium 220 mg oral capsule (20 sources) Nonsteroidal Anti-inflammatory Drug Start: 01-08-2025 End: 01-10-2025 take 1 capsule by mouth twice daily as needed for pain Naproxen Sodium (Aleve) 220 mg capsule Discontinued 220 mg PO TWICE A DAY as needed for pain January 08, 2025 12:00am January 10, 2025 12:05pm HOLD FROM 01/08/25 TO 01/15/25 take 1 tablet by lillian twice daily at mealtime naproxen sodium (ANAPROX) 220 mg tablet Take 220 mg by mouth twice daily with meals. 0 Active Comment on above: Take 220 mg by mouth twice daily with meals. omeprazole 20 mg delayed release oral capsule (20 sources) Proton Pump Inhibitor Start: End: take 1 capsule by mouth twice daily Omeprazole 20 mg capsule,delayed release(DR/EC) Discontinued 20 mg PO TWICE A DAY October 22, 2023 12:00am January 08, 2025 10:12am Start: 05-04-2019 End: 10-22-2023 take 1 capsule by mouth once daily Omeprazole 10 MG capsule Discontinued 10 mg PO DAILY May 04, 2019 1:00am October 22, 2023 11:54am Comment on above: Take 1 capsule by mo ut twice daily. Take 1 capsule by mo [facility] two times a day. predniSONE 20 mg oral tablet (10 sources) Start: 09-11-2021 End: 03-01-2022 take 1 tablet by mouth once daily predniSONE (DELTASONE) 20 mg tablet Take 1 tablet by mouth once daily. 5 tablet 0 09/11/2021 03/01/2022 Discontinued Comment on above: Take 1 tablet by [facility] once daily. Problems Active Problems Problem Classification Problem Date Documented Da te Episodic/Chronic Anxiety disorders (20 sources) Anxiety; Translations: [Anxiety disorder, unspecified] Onset: 2 12-05-2018 Chronic Cataract (1 source) Bilateral senile combined form cataracts of eyes; Translations: [Combined forms of age-related cataract, bilateral] 03-10-2023 Chronic Chronic obstructive pulmonary disease and bronchiectasis (20 sources) Chronic asthmatic bronchitis; Translations: [Chronic obstructive pulmonary disease, unspecified] Onset: 9 12-05-2018 Chronic Deficiency and other anemia (2 sources) Anemia; Translations: [Anemia, unspecified] 01-08-2025 Episodic Deficiency and other anemia (2 sources) Anemia, unspecified; Translations: [Anemia, unspecified] Onset: 5 Episodic Delirium, dementia, and amnestic and other cognitive disorders (1 source) Senile asthenia; Translations: [Age-related physical debility] 07-13-2023 Chronic Diabetes mellitus with complications (20 sources) Type 2 diabetes mellitus; Translations: [Type 2 diabetes mellitus with diabetic neuropathy, unspecified] Onset: 0 09-07-2019 Chronic Diabetes mellitus without complication (1 source) Diabetes mellitus type 2 without retinopathy; Translations: [Type 2 diabetes mellitus without complications] 03-10-2023 Chronic Diseases of white blood cells (2 sources) Neutrophilia; Translations: [Disorder of white blood cells, unspecified] Onset: 3 12-01-2022 Chronic Disorders of lipid metabolism (20 sources) Hyperlipidemia; Translations: [Hyperlipidemia, unspecified] Onset: 2 12-05-2018 Chronic Esophageal disorders (20 sources) Gastroesophageal reflux disease; Translations: [Gastro-esophageal reflux disease without esophagitis] Onset: 9 12-05-2018 Chronic Essential hypertension (20 sources) Essential hypertension; Translations: [Essential (primary) hypertension] Onset: 9 12-05-2018 Chronic Gastrointestinal hemorrhage (4 sources) Gastrointestinal hemorrhage; Translations: [Gastrointestinal hemorrhage, unspecified] Onset: 5 01-08-2025 Episodic Headache; including migraine (8 sources) Migraine with aura; Translations: [Migraine with aura, not intractable, without status migrainosus] Chronic Hypertension with complications and secondary hypertension (6 sources) Hypertensive urgency ; Translations: [Hypertensive urgency] 11-06-2023 Chronic Immunizations and screening for infectious disease (5 sources) Vaccination needed; Translations: [Encounter for immunization] Episodic Malaise and fatigue (8 sources) Fatigue; Translations: [Other fatigue] Onset: 5 07-13-2023 Episodic Mood disorders (20 sources) Major depression in partial remission; Translations: [Major depressive disorder, single episode, in partial remission] Onset: 9 12-05-2018 Chronic Nausea and vomiting (5 sources) Nausea; Translations: [Nausea] Episodic Neoplasms of unspecified nature or uncertain behavior (1 source) Thrombocytosis; Translations: [Thrombocytosis] Onset: 3 Chronic Neoplasms of unspecified nature or uncertain behavior (1 source) Thrombocytosis; Translations: [Thrombocytosis] 12-01-2022 Episodic Noninfectious gastroenteritis (3 sources) Chronic diarrhea; Translations: [Noninfective gastroenteritis and colitis, unspecified] Episodic Nutritional deficiencies (12 sources) Vitamin D deficiency; Translations: [Vitamin D deficiency, unspecified] Onset: 3 Chronic Other connective tissue disease (20 sources) Fibromyalgia; Translations: [Fibromyalgia] 12-05-2018 Episodic Other connective tissue disease (7 sources) Hand pain; Translations: [Pain in unspecified hand] Episodic Other connective tissue disease (1 source) Falls; Translations: [Repeated falls] Episodic Other ear and sense organ disorders (10 sources) Bilateral external auditory canal chronic otitis externa; Translations: [Unspecified chronic otitis externa, bilateral] Onset: 4 Chronic Other ear and sense organ disorders (1 source) Unspecified chronic otitis externa, bilateral; Translations: [Chronic otitis externa of both ears, unspecified type] Onset: 3 Chronic Other eye disorders (1 source) Tear [...] [Polyneuropathy associated with underlying disease (HCC)] Onset: 9 Chronic Other nervous system disorders (1 source) Myasthenia gravis without (acute) exacerbation; Translations: [Myasthenia gravis (HCC)] Onset: 9 Chronic Other nervous system disorders (1 source) Other chronic pain; Translations: [Chronic left shoulder pain] Onset: 3 Chronic Other nervous system disorders (6 sources) Unable to walk; Translations: [Difficulty in walking, not elsewhere classified] 10-22-2023 Chronic Other nervous system disorders (2 sources) Myasthenia gravis with (acute) exacerbation; Translations: [Myasthenia gravis with (acute) exacerbation] Onset: 5 Chronic Other nervous system disorders (1 source) Abnormal gait; Translations: [Unspecified abnormalities of gait and mobility] Episodic Other nervous system disorders (6 sources) H/O: musculoskeletal disease; Translations: [Personal history [...] Allergic rhinitis; Translations: [Other allergic rhinitis] Onset: 2 Chronic Other upper respiratory disease (1 source) Other allergic rhinitis; Translations: [Other allergic rhinitis] Onset: 2 Chronic Residual codes; unclassified (3 sources) Postmenopausal state; Translations: [Asymptomatic menopausal state] 12-01-2022 Episodic Urinary tract infections (6 sources) Urinary tract infectious disease; Translations: [Urinary tract infection, site not specified] 11-06-2023 Episodic Past or Other Problems Problem Classification Problem Date Documented Date Episodic/Chronic Deficiency and other anemia (20 sources) Iron deficiency anemia; Translations: [Iron deficiency anemia, unspecified] Onset: 07-15-2020 07-15-2020 Episodic Inflammation; infection of eye (except that caused by tuberculosis or sexually transmitteddisease) (20 sources) Allergic conjunctivitis of bilateral eyes; Translations: [Acute atopic conjunctivitis, bilateral] Onset: 10-07-2021 Episodic Other aftercare (2 sources) Other 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; Translations: [Other fci (current) drug therapy] Onset: 05-29-2024 Episodic Other connective tissue disease (1 source) Fibromyalgia; Translations: [Fibromyalgia] Onset: 12-05-2018 Episodic Other non-traumatic joint disorders (1 source) Pain in left shoulder; Translations: [Chronic left shoulder pain] Onset: 12-01-2022 Episodic Residual codes; unclassified (3 sources) Other specified health status; Translations: [Other drug allergy] Onset: 03-02-2023 12-01-2022 Episodic Residual codes; unclassified (1 source) Asymptomatic menopausal state; Translations: [Asymptomatic postmenopausal status] Onset: 12-01-2022 Episodic Results Test Name Value Interpretation Reference Range Facility Basic Metabolic Profile (BMP )on 01-17-2025 BUN/CRE 19.3 RATIO Normal 03-12 [facility] Comment on above: Order Comment: 129.1 Performed By: #### M 100.2705, BRC, L300.4310, BTS, L300.3900 #### [facility] [address] [place], [address] Calcium [Mass/Vol] 8.6 mg/dL Normal 7.6-11.0 [facility] Comment on above: Order Comment: 129.1 Performed By: #### M 100.7900, BRC, L300.4310, BTS, L300.3900 #### [facility] [address] [place], [address] Chloride [Moles/Vol] 108 mmol/L Normal 98-108 [facility] Comment on above: Order Comment: 129.1 Performed By: #### M 100.7900, BRC, L300.4310, BTS, L300.3900 #### [facility] [address] [place], [address] CO2 [Moles/Vol] 24.5 mmol/L Normal 21.0-32.0 [facility] Comment on above: Order Comment: 129.1 Performed By: #### M 100.7900, BRC, L300.4310, BTS, L300.3900 #### [facility] [address] [place], [address] Creatinine [Mass/Vol] 0.55 mg/dL Low 0.70-1.20 [facility] Comment on above: Order Comment: 129.1 Performed By: #### M 100.7900, BRC, L300.4310, BTS, L300.3900 #### [facility] [address] [place], [address] GAP 8 Normal 5-15 [facility] Comment on above: Order Comment: 129.1 Performed By: #### M 100.7900, BRC, L300.4310, BTS, L300.3900 #### [facility] [address] [place], [address] GFR/1.73 sq M.predicted among non-blacks MDRD (S/P/Bld) [Vol rate/Area] 94 mL/min/{1.73_m2} Normal >60 [facility] Comment on above: Order Comment: 129.1 Result Comment: mL/m in/1.73m2 CKD-EPI Creatinine Equation (2020) Performed By: #### M 100.7900, BRC, L300.4310, BTS, L300.3900 #### [facility] [address] [place], [address] Glucose [Mass/Vol] 132 mg/dL High 70-99 [facility] Comment on above: Order Comment: 129.1 Performed By: #### M 100.7900, BRC, L300.4310, BTS, L300.3900 #### [facility] [address] [place], [address] Potassium [Moles/Vol] 3.8 mmol/L Normal 3.3-5.1 [facility] Comment on above: Order Comment: 129.1 Performed By: #### M 100.7900, BRC, L300.4310, BTS, L300.3900 #### [facility] [address] [place], [address] Sodium [Moles/Vol] 140 mmol/L Normal 133-145 [facility] Comment on above: Order Comment: 129.1 Performed By: #### M 100.7900, BRC, L300.4310, BTS, L300.3900 #### [facility] [address] [place], [address] Urea nitrogen [Mass/Vol] 11 mg/dL Normal 4-19 [facility] Comment on above: Order Comment: 129.1 Performed By: #### M 100.7900, BRC, L300.4310, BTS, L300.3900 #### [facility] [address] [place], [address] CBC-Complete Blood Cnt No Di ffon 01-17-2025 Erythrocyte distribution width (RBC) [Ratio] 13.5 % Normal 11.6-14.6 [facility] Comment on above: Order Comment: 129.1 Performed By: #### M 100.7900, BRC, L300.4310, BTS, L300.3900 #### [facility] [address] [place], [address] Hematocrit (Bld) [Volume fraction] 29.3 % Low 37-47 [facility] Comment on above: Order Comment: 129.1 Performed By: #### M 100.7900, BRC, L300.4310, BTS, L300.3900 #### [facility] [address] [place], [address] Hemoglobin (Bld) [Mass/Vol] 9.3 g/dL Low 12.0-15.0 [facility] Comment on above: Order Comment: 129.1 Performed By: #### M 100.7900, BRC, L300.4310, BTS, L300.3900 #### [facility] [address] [place], [address] MCH (RBC) [Entitic mass] 29.7 pg Normal 27.0-32.0 [facility] Comment on above: Order Comment: 129.1 Performed By: #### M 100.7900, BRC, L300.4310, BTS, L300.3900 #### [facility] [address] [place], [address] MCHC (RBC) [Mass/Vol] 31.7 g/dL Low 32-36 [facility] Comment on above: Order Comment: 129.1 Performed By: #### M 100.7900, BRC, L300.4310, BTS, L300.3900 #### [facility] [address] [place], [address] MCV (RBC) [Entitic vol] 93.6 fL Normal 81-99 [facility] Comment on above: Order Comment: 129.1 Performed By: #### M 100.7900, BRC, L300.4310, BTS, L300.3900 #### [facility] [address] [place], [address] Platelet mean volume (Bld) [Entitic vol] 10.4 fL Normal 6.2-12.0 [facility] Comment on above: Order Comment: 129.1 Performed By: #### M 100.7900, BRC, L300.4310, BTS, L300.3900 #### [facility] [address] [place], [address] Platelets (Bld) [#/Vol] 449 10*3/uL Normal 150-450 [facility] Comment on above: Order Comment: 129.1 Performed By: #### M 100.7900, BRC, L300.4310, BTS, L300.3900 #### [facility] [address] [place], [address] RBC (Bld) [#/Vol] 3.13 10*6/uL Low 4.2-5.4 [facility] Comment on above: Order Comment: 129.1 Performed By: #### M 100.7900, BRC, L300.4310, BTS, L300.3900 #### [facility] [address] [place], [address] RDW SD 46.0 fl High 35.1-43.9 [facility] Comment on above: Order Comment: 129.1 Performed By: #### M 100.7900, BRC, L300.4310, BTS, L300.3900 #### [facility] [address] [place], [address] WBC (Bld) [#/Vol] 8.9 10*3/uL Normal 4.4-11.0 [facility] Comment on above: Order Comment: 129.1 Performed By: #### M 100.7900, BRC, L300.4310, BTS, L300.3900 #### [facility] [address] [place], [address] Vitamin D,25 Hydroxyon 01-17 Vitamin D 25-OH 57.7 ng/mL Normal 30-100 [facility] Comment on above: Order Comment: 129.1 Result Comment: Yancy min D Status Deficiency: <20 ng/mL (50nmol/L) Insufficiency: 20-30 ng/mL (50-75 nmol/L) Sufficiency: 30-100 ng/mL (75-250 nmol/L) Toxicity: >100 ng/mL (>250 nmol/L) Performed By: #### M 100.7900, BRC, L300.4310, BTS, L300.3900 #### [facility] [address] [place], [address] Basic Metabolic Profile (BMP )on 01-15-2025 BUN Normal 4-19 [facility] Comment on above: Result Comment: Canc elled via OM: Order cancelled - Patient discharged Performed By: #### M 100.7900, BRC, L300.4310, BTS, L300.3900 #### [facility] [address] [place], [address] BUN/CRE Normal 10-20 [facility] Comment on above: Result Comment: Canc elled via OM: Order cancelled - Patient discharged Performed By: #### M 100.7900, BRC, L300.4310, BTS, L300.3900 #### [facility] [address] [place], [address] Calcium Normal 7.6-11.0 [facility] Comment on above: Result Comment: Canc elled via OM: Order cancelled - Patient discharged Performed By: #### M 100.7900, BRC, L300.4310, BTS, L300.3900 #### [facility] [address] [place], [address] CL Normal 98-108 [facility] Comment on above: Result Comment: Canc elled via OM: Order cancelled - Patient discharged Performed By: #### M 100.7900, BRC, L300.4310, BTS, L300.3900 #### [facility] [address] [place], [address] CO2 Normal 21.0-32.0 [facility] Comment on above: Result Comment: Canc elled via OM: Order cancelled - Patient discharged Performed By: #### M 100.7900, BRC, L300.4310, BTS, L300.3900 #### [facility] [address] [place], [address] CREAT,SERUM Normal 0.70-1.20 [facility] Comment on above: Result Comment: Canc elled via OM: Order cancelled - Patient discharged Performed By: #### M 100.7900, BRC, L300.4310, BTS, L300.3900 #### [facility] [address] [place], [address] eGFR Normal >60 [facility] Comment on above: Result Comment: Canc elled via OM: Order cancelled - Patient discharged Performed By: #### M 100.7900, BRC, L300.4310, BTS, L300.3900 #### [facility] [address] [place], [address] GAP Normal 5-15 [facility] Comment on above: Result Comment: Canc elled via OM: Order cancelled - Patient discharged Performed By: #### M 100.7900, BRC, L300.4310, BTS, L300.3900 #### [facility] [address] [place], [address] GLU Normal 70-99 [facility] Comment on above: Result Comment: Canc elled via OM: Order cancelled - Patient discharged Performed By: #### M 100.7900, BRC, L300.4310, BTS, L300.3900 #### [facility] [address] [place], [address] Potassium Normal 3.3-5.1 [facility] Comment on above: Result Comment: Canc elled via OM: Order cancelled - Patient discharged Performed By: #### M 100.7900, BRC, L300.4310, BTS, L300.3900 #### [facility] [address] [place], [address] Basic Metabolic Profile (BMP) Normal 133-145 [facility] Comment on above: Result Comment: Canc elled via OM: Order cancelled - Patient discharged Performed By: #### M 100.7900, BRC, L300.4310, BTS, L300.3900 #### [facility] [address] [place], [address] CBC W/Diff, Automatedon 08-2 -2024 Absolute Neut Normal 2.0-7.7 [facility] Comment on above: Result Comment: Canc elled via OM: Order cancelled - Patient discharged Performed By: #### M 100.7900, BRC, L300.4310, BTS, L300.3900 #### [facility] [address] [place], [address] HCT Normal 37-47 [facility] Comment on above: Result Comment: Canc elled via OM: Order cancelled - Patient discharged Performed By: #### M 100.7900, BRC, L300.4310, BTS, L300.3900 #### [facility] [address] [place], [address] HGB Normal 12.0-15.0 [facility] Comment on above: Result Comment: Canc elled via OM: Order cancelled - Patient discharged Performed By: #### M 100.7900, BRC, L300.4310, BTS, L300.3900 #### [facility] [address] [place], [address] MCH Normal 27.0-32.0 [facility] Comment on above: Result Comment: Canc elled via OM: Order cancelled - Patient discharged Performed By: #### M 100.7900, BRC, L300.4310, BTS, L300.3900 #### [facility] [address] [place], [address] MCHC Normal 32-36 [facility] Comment on above: Result Comment: Canc elled via OM: Order cancelled - Patient discharged Performed By: #### M 100.7900, BRC, L300.4310, BTS, L300.3900 #### [facility] [address] [place], [address] MCV Normal 81-99 [facility] Comment on above: Result Comment: Canc elled via OM: Order cancelled - Patient discharged Performed By: #### M 100.7900, BRC, L300.4310, BTS, L300.3900 #### [facility] [address] [place], [address] NEUT% Normal 47-70 [facility] Comment on above: Result Comment: Canc elled via OM: Order cancelled - Patient discharged Performed By: #### M 100.7900, BRC, L300.4310, BTS, L300.3900 #### [facility] [address] [place], [address] PLT Normal 150-450 [facility] Comment on above: Result Comment: Canc elled via OM: Order cancelled - Patient discharged Performed By: #### M 100.7900, BRC, L300.4310, BTS, L300.3900 #### [facility] [address] [place], [address] RBC Normal 4.2-5.4 [facility] Comment on above: Result Comment: Canc elled via OM: Order cancelled - Patient discharged Performed By: #### M 100.7900, BRC, L300.4310, BTS, L300.3900 #### [facility] [address] [place], [address] RDW CV Normal 11.6-14.6 [facility] Comment on above: Result Comment: Canc elled via OM: Order cancelled - Patient discharged Performed By: #### M 100.7900, BRC, L300.4310, BTS, L300.3900 #### [facility] [address] [place], [address] RDW SD Normal 35.1-43.9 [facility] Comment on above: Result Comment: Canc elled via OM: Order cancelled - Patient discharged Performed By: #### M 100.7900, BRC, L300.4310, BTS, L300.3900 #### [facility] [address] [place], [address] WBC Normal 4.4-11.0 [facility] Comment on above: Result Comment: Canc elled via OM: Order cancelled - Patient discharged Performed By: #### M 100.7900, BRC, L300.4310, BTS, L300.3900 #### [facility] [address] [place], [address] Basic Metabolic Profile (BMP )on 01-14-2025 BUN Normal 4-19 [facility] Comment on above: Result Comment: Canc elled via OM: Order cancelled - Patient discharged Performed By: #### M 100.7900, BRC, L300.4310, BTS, L300.3900 #### [facility] [address] [place], [address] BUN/CRE Normal 10-20 [facility] Comment on above: Result Comment: Canc elled via OM: Order cancelled - Patient discharged Performed By: #### M 100.7900, BRC, L300.4310, BTS, L300.3900 #### [facility] [address] [place], [address] Calcium Normal 7.6-11.0 [facility] Comment on above: Result Comment: Canc elled via OM: Order cancelled - Patient discharged Performed By: #### M 100.7900, BRC, L300.4310, BTS, L300.3900 #### [facility] [address] [place], [address] CL Normal 98-108 [facility] Comment on above: Result Comment: Canc elled via OM: Order cancelled - Patient discharged Performed By: #### M 100.7900, BRC, L300.4310, BTS, L300.3900 #### [facility] [address] [place], [address] CO2 Normal 21.0-32.0 [facility] Comment on above: Result Comment: Canc elled via OM: Order cancelled - Patient discharged Performed By: #### M 100.7900, BRC, L300.4310, BTS, L300.3900 #### [facility] [address] [place], [address] CREAT,SERUM Normal 0.70-1.20 [facility] Comment on above: Result Comment: Canc elled via OM: Order cancelled - Patient discharged Performed By: #### M 100.7900, BRC, L300.4310, BTS, L300.3900 #### [facility] [address] [place], [address] eGFR Normal >60 [facility] Comment on above: Result Comment: Canc elled via OM: Order cancelled - Patient discharged Performed By: #### M 100.7900, BRC, L300.4310, BTS, L300.3900 #### [facility] [address] [place], [address] GAP Normal 5-15 [facility] Comment on above: Result Comment: Canc elled via OM: Order cancelled - Patient discharged Performed By: #### M 100.7900, BRC, L300.4310, BTS, L300.3900 #### [facility] [address] [place], [address] GLU Normal 70-99 [facility] Comment on above: Result Comment: Canc elled via OM: Order cancelled - Patient discharged Performed By: #### M 100.7900, BRC, L300.4310, BTS, L300.3900 #### [facility] [address] [place], [address] Potassium Normal 3.3-5.1 [facility] Comment on above: Result Comment: Canc elled via OM: Order cancelled - Patient discharged Performed By: #### M 100.7900, BRC, L300.4310, BTS, L300.3900 #### [facility] [address] [place], [address] Basic Metabolic Profile (BMP) Normal 133-145 [facility] Comment on above: Result Comment: Canc elled via OM: Order cancelled - Patient discharged Performed By: #### M 100.7900, BRC, L300.4310, BTS, L300.3900 #### [facility] [address] [place], [address] CBC W/Diff, Automatedon 08-2 Absolute Neut Normal 2.0-7.7 [facility] Comment on above: Result Comment: Canc elled via OM: Order cancelled - Patient discharged Performed By: #### M 100.7900, BRC, L300.4310, BTS, L300.3900 #### [facility] [address] [place], [address] HCT Normal 37-47 [facility] Comment on above: Result Comment: Canc elled via OM: Order cancelled - Patient discharged Performed By: #### M 100.7900, BRC, L300.4310, BTS, L300.3900 #### [facility] [address] [place], [address] HGB Normal 12.0-15.0 [facility] Comment on above: Result Comment: Canc elled via OM: Order cancelled - Patient discharged Performed By: #### M 100.7900, BRC, L300.4310, BTS, L300.3900 #### [facility] [address] [place], [address] MCH Normal 27.0-32.0 [facility] Comment on above: Result Comment: Canc elled via OM: Order cancelled - Patient discharged Performed By: #### M 100.7900, BRC, L300.4310, BTS, L300.3900 #### [facility] [address] [place], [address] MCHC Normal 32-36 [facility] Comment on above: Result Comment: Canc elled via OM: Order cancelled - Patient discharged Performed By: #### M 100.7900, BRC, L300.4310, BTS, L300.3900 #### [facility] [address] [place], [address] MCV Normal 81-99 [facility] Comment on above: Result Comment: Canc elled via OM: Order cancelled - Patient discharged Performed By: #### M 100.7900, BRC, L300.4310, BTS, L300.3900 #### [facility] [address] [place], [address] NEUT% Normal 47-70 [facility] Comment on above: Result Comment: Canc elled via OM: Order cancelled - Patient discharged Performed By: #### M 100.7900, BRC, L300.4310, BTS, L300.3900 #### [facility] [address] [place], [address] PLT Normal 150-450 [facility] Comment on above: Result Comment: Canc elled via OM: Order cancelled - Patient discharged Performed By: #### M 100.7900, BRC, L300.4310, BTS, L300.3900 #### [facility] [address] [place], [address] RBC Normal 4.2-5.4 [facility] Comment on above: Result Comment: Canc elled via OM: Order cancelled - Patient discharged Performed By: #### M 100.7900, BRC, L300.4310, BTS, L300.3900 #### [facility] [address] [place], [address] RDW CV Normal 11.6-14.6 [facility] Comment on above: Result Comment: Canc elled via OM: Order cancelled - Patient discharged Performed By: #### M 100.7900, BRC, L300.4310, BTS, L300.3900 #### [facility] [address] [place], [address] RDW SD Normal 35.1-43.9 [facility] Comment on above: Result Comment: Canc elled via OM: Order cancelled - Patient discharged Performed By: #### M 100.7900, BRC, L300.4310, BTS, L300.3900 #### [facility] [address] [place], [address] WBC Normal 4.4-11.0 [facility] Comment on above: Result Comment: Canc elled via OM: Order cancelled - Patient discharged Performed By: #### M 100.7900, BRC, L300.4310, BTS, L300.3900 #### [facility] [address] [place], [address] Basic Metabolic Profile (BMP )on 01-13-2025 BUN Normal 4-19 [facility] Comment on above: Result Comment: Canc elled via OM: Order cancelled - Patient discharged Performed By: #### M 100.7900, BRC, L300.4310, BTS, L300.3900 #### [facility] [address] [place], [address] BUN/CRE Normal 10-20 [facility] Comment on above: Result Comment: Canc elled via OM: Order cancelled - Patient discharged Performed By: #### M 100.7900, BRC, L300.4310, BTS, L300.3900 #### [facility] [address] [place], [address] Calcium Normal 7.6-11.0 [facility] Comment on above: Result Comment: Canc elled via OM: Order cancelled - Patient discharged Performed By: #### M 100.7900, BRC, L300.4310, BTS, L300.3900 #### [facility] [address] [place], [address] CL Normal 98-108 [facility] Comment on above: Result Comment: Canc elled via OM: Order cancelled - Patient discharged Performed By: #### M 100.7900, BRC, L300.4310, BTS, L300.3900 #### [facility] [address] [place], [address] CO2 Normal 21.0-32.0 [facility] Comment on above: Result Comment: Canc elled via OM: Order cancelled - Patient discharged Performed By: #### M 100.7900, BRC, L300.4310, BTS, L300.3900 #### [facility] [address] [place], [address] CREAT,SERUM Normal 0.70-1.20 [facility] Comment on above: Result Comment: Canc elled via OM: Order cancelled - Patient discharged Performed By: #### M 100.7900, BRC, L300.4310, BTS, L300.3900 #### [facility] [address] [place], [address] eGFR Normal >60 [facility] Comment on above: Result Comment: Canc elled via OM: Order cancelled - Patient discharged Performed By: #### M 100.7900, BRC, L300.4310, BTS, L300.3900 #### [facility] [address] [place], [address] GAP Normal 5-15 [facility] Comment on above: Result Comment: Canc elled via OM: Order cancelled - Patient discharged Performed By: #### M 100.7900, BRC, L300.4310, BTS, L300.3900 #### [facility] [address] [place], [address] GLU Normal 70-99 [facility] Comment on above: Result Comment: Canc elled via OM: Order cancelled - Patient discharged Performed By: #### M 100.7900, BRC, L300.4310, BTS, L300.3900 #### [facility] [address] [place], [address] Potassium Normal 3.3-5.1 [facility] Comment on above: Result Comment: Canc elled via OM: Order cancelled - Patient discharged Performed By: #### M 100.7900, BRC, L300.4310, BTS, L300.3900 #### [facility] [address] [place], [address] Basic Metabolic Profile (BMP) Normal 133-145 [facility] Comment on above: Result Comment: Canc elled via OM: Order cancelled - Patient discharged Performed By: #### M 100.7900, BRC, L300.4310, BTS, L300.3900 #### [facility] [address] [place], [address] CBC W/Diff, Automatedon 08-2 Absolute Neut Normal 2.0-7.7 [facility] Comment on above: Result Comment: Canc elled via OM: Order cancelled - Patient discharged Performed By: #### M 100.7900, BRC, L300.4310, BTS, L300.3900 #### [facility] [address] [place], [address] HCT Normal 37-47 [facility] Comment on above: Result Comment: Canc elled via OM: Order cancelled - Patient discharged Performed By: #### M 100.7900, BRC, L300.4310, BTS, L300.3900 #### [facility] [address] [place], [address] HGB Normal 12.0-15.0 [facility] Comment on above: Result Comment: Canc elled via OM: Order cancelled - Patient discharged Performed By: #### M 100.7900, BRC, L300.4310, BTS, L300.3900 #### [facility] [address] [place], [address] MCH Normal 27.0-32.0 [facility] Comment on above: Result Comment: Canc elled via OM: Order cancelled - Patient discharged Performed By: #### M 100.7900, BRC, L300.4310, BTS, L300.3900 #### [facility] [address] [place], [address] MCHC Normal 32-36 [facility] Comment on above: Result Comment: Canc elled via OM: Order cancelled - Patient discharged Performed By: #### M 100.7900, BRC, L300.4310, BTS, L300.3900 #### [facility] [address] [place], [address] MCV Normal 81-99 [facility] Comment on above: Result Comment: Canc elled via OM: Order cancelled - Patient discharged Performed By: #### M 100.7900, BRC, L300.4310, BTS, L300.3900 #### [facility] [address] [place], [address] NEUT% Normal 47-70 [facility] Comment on above: Result Comment: Canc elled via OM: Order cancelled - Patient discharged Performed By: #### M 100.7900, BRC, L300.4310, BTS, L300.3900 #### [facility] [address] [place], [address] PLT Normal 150-450 [facility] Comment on above: Result Comment: Canc elled via OM: Order cancelled - Patient discharged Performed By: #### M 100.7900, BRC, L300.4310, BTS, L300.3900 #### [facility] [address] [place], [address] RBC Normal 4.2-5.4 [facility] Comment on above: Result Comment: Canc elled via OM: Order cancelled - Patient discharged Performed By: #### M 100.7900, BRC, L300.4310, BTS, L300.3900 #### [facility] [address] [place], [address] RDW CV Normal 11.6-14.6 [facility] Comment on above: Result Comment: Canc elled via OM: Order cancelled - Patient discharged Performed By: #### M 100.7900, BRC, L300.4310, BTS, L300.3900 #### [facility] [address] [place], [address] RDW SD Normal 35.1-43.9 [facility] Comment on above: Result Comment: Canc elled via OM: Order cancelled - Patient discharged Performed By: #### M 100.7900, BRC, L300.4310, BTS, L300.3900 #### [facility] [address] [place], [address] WBC Normal 4.4-11.0 [facility] Comment on above: Result Comment: Canc elled via OM: Order cancelled - Patient discharged Performed By: #### M 100.7900, BRC, L300.4310, BTS, L300.3900 #### [facility] [address] [place], [address] Basic Metabolic Profile (BMP )on 01-12-2025 BUN Normal 4-19 [facility] Comment on above: Result Comment: Canc elled via OM: Order cancelled - Patient discharged Performed By: #### M 100.7900, BRC, L300.4310, BTS, L300.3900 #### [facility] [address] [place], [address] BUN/CRE Normal 10-20 [facility] Comment on above: Result Comment: Canc elled via OM: Order cancelled - Patient discharged Performed By: #### M 100.7900, BRC, L300.4310, BTS, L300.3900 #### [facility] [address] [place], [address] Calcium Normal 7.6-11.0 [facility] Comment on above: Result Comment: Canc elled via OM: Order cancelled - Patient discharged Performed By: #### M 100.7900, BRC, L300.4310, BTS, L300.3900 #### [facility] [address] [place], [address] CL Normal 98-108 [facility] Comment on above: Result Comment: Canc elled via OM: Order cancelled - Patient discharged Performed By: #### M 100.7900, BRC, L300.4310, BTS, L300.3900 #### [facility] [address] [place], [address] CO2 Normal 21.0-32.0 [facility] Comment on above: Result Comment: Canc elled via OM: Order cancelled - Patient discharged Performed By: #### M 100.7900, BRC, L300.4310, BTS, L300.3900 #### [facility] [address] [place], [address] CREAT,SERUM Normal 0.70-1.20 [facility] Comment on above: Result Comment: Canc elled via OM: Order cancelled - Patient discharged Performed By: #### M 100.7900, BRC, L300.4310, BTS, L300.3900 #### [facility] [address] [place], [address] eGFR Normal >60 [facility] Comment on above: Result Comment: Canc elled via OM: Order cancelled - Patient discharged Performed By: #### M 100.7900, BRC, L300.4310, BTS, L300.3900 #### [facility] [address] [place], [address] GAP Normal 5-15 [facility] Comment on above: Result Comment: Canc elled via OM: Order cancelled - Patient discharged Performed By: #### M 100.7900, BRC, L300.4310, BTS, L300.3900 #### [facility] [address] [place], [address] GLU Normal 70-99 [facility] Comment on above: Result Comment: Canc elled via OM: Order cancelled - Patient discharged Performed By: #### M 100.7900, BRC, L300.4310, BTS, L300.3900 #### [place] [facility] [address] [place], [address] Potassium Normal 3.3-5.1 [facility] Comment on above: Result Comment: Canc elled via OM: Order cancelled - Patient discharged Performed By: #### M 100.7900, BRC, L300.4310, BTS, L300.3900 #### [facility] [address] [place], [address] Basic Metabolic Profile (BMP) Normal 133-145 [facility] Comment on above: Result Comment: Canc elled via OM: Order cancelled - Patient discharged Performed By: #### M 100.7900, BRC, L300.4310, BTS, L300.3900 #### [facility] [address] [place], [address] CBC W/Diff, Automatedon 08-2 Absolute Neut Normal 2.0-7.7 [facility] Comment on above: Result Comment: Canc elled via OM: Order cancelled - Patient discharged Performed By: #### M 100.7900, BRC, L300.4310, BTS, L300.3900 #### [facility] [address] [place], [address] HCT Normal 37-47 [facility] Comment on above: Result Comment: Canc elled via OM: Order cancelled - Patient discharged Performed By: #### M 100.7900, BRC, L300.4310, BTS, L300.3900 #### [facility] [address] [place], [address] HGB Normal 12.0-15.0 [facility] Comment on above: Result Comment: Canc elled via OM: Order cancelled - Patient discharged Performed By: #### M 100.7900, BRC, L300.4310, BTS, L300.3900 #### [facility] [address] [place], [address] MCH Normal 27.0-32.0 [facility] Comment on above: Result Comment: Canc elled via OM: Order cancelled - Patient discharged Performed By: #### M 100.7900, BRC, L300.4310, BTS, L300.3900 #### [facility] [address] [place], [address] MCHC Normal 32-36 [facility] Comment on above: Result Comment: Canc elled via OM: Order cancelled - Patient discharged Performed By: #### M 100.7900, BRC, L300.4310, BTS, L300.3900 #### [facility] [address] [place], [address] MCV Normal 81-99 [facility] Comment on above: Result Comment: Canc elled via OM: Order cancelled - Patient discharged Performed By: #### M 100.7900, BRC, L300.4310, BTS, L300.3900 #### [facility] [address] [place], [address] NEUT% Normal 47-70 [facility] Comment on above: Result Comment: Canc elled via OM: Order cancelled - Patient discharged Performed By: #### M 100.7900, BRC, L300.4310, BTS, L300.3900 #### [facility] [address] [place], [address] PLT Normal 150-450 [facility] Comment on above: Result Comment: Canc elled via OM: Order cancelled - Patient discharged Performed By: #### M 100.7900, BRC, L300.4310, BTS, L300.3900 #### [facility] [address] [place], [address] RBC Normal 4.2-5.4 [facility] Comment on above: Result Comment: Canc elled via OM: Order cancelled - Patient discharged Performed By: #### M 100.7900, BRC, L300.4310, BTS, L300.3900 #### [facility] [address] [place], [address] RDW CV Normal 11.6-14.6 [facility] Comment on above: Result Comment: Canc elled via OM: Order cancelled - Patient discharged Performed By: #### M 100.7900, BRC, L300.4310, BTS, L300.3900 #### [facility] [address] [place], [address] RDW SD Normal 35.1-43.9 [facility] Comment on above: Result Comment: Canc elled via OM: Order cancelled - Patient discharged Performed By: #### M 100.7900, BRC, L300.4310, BTS, L300.3900 #### [facility] [address] [place], [address] WBC Normal 4.4-11.0 [facility] Comment on above: Result Comment: Canc elled via OM: Order cancelled - Patient discharged Performed By: #### M 100.7900, BRC, L300.4310, BTS, L300.3900 #### [facility] [address] [place], [address] Basic Metabolic Profile (BMP )on 01-11-2025 BUN Normal 4-19 [facility] Comment on above: Result Comment: Canc elled via OM: Order cancelled - Patient discharged Performed By: #### M 100.7900, BRC, L300.4310, BTS, L300.3900 #### [facility] [address] [place], [address] BUN/CRE Normal 10-20 [facility] Comment on above: Result Comment: Canc elled via OM: Order cancelled - Patient discharged Performed By: #### M 100.7900, BRC, L300.4310, BTS, L300.3900 #### [facility] [address] [place], [address] Calcium Normal 7.6-11.0 [facility] Comment on above: Result Comment: Canc elled via OM: Order cancelled - Patient discharged Performed By: #### M 100.7900, BRC, L300.4310, BTS, L300.3900 #### [facility] [address] [place], [address] CL Normal 98-108 [facility] Comment on above: Result Comment: Canc elled via OM: Order cancelled - Patient discharged Performed By: #### M 100.7900, BRC, L300.4310, BTS, L300.3900 #### [facility] [address] [place], [address] CO2 Normal 21.0-32.0 [facility] Comment on above: Result Comment: Canc elled via OM: Order cancelled - Patient discharged Performed By: #### M 100.7900, BRC, L300.4310, BTS, L300.3900 #### [facility] [address] [place], [address] CREAT,SERUM Normal 0.70-1.20 [facility] Comment on above: Result Comment: Canc elled via OM: Order cancelled - Patient discharged Performed By: #### M 100.7900, BRC, L300.4310, BTS, L300.3900 #### [facility] [address] [place], [address] eGFR Normal >60 [facility] Comment on above: Result Comment: Canc elled via OM: Order cancelled - Patient discharged Performed By: #### M 100.7900, BRC, L300.4310, BTS, L300.3900 #### [facility] [address] [place], [address] GAP Normal 5-15 [facility] Comment on above: Result Comment: Canc elled via OM: Order cancelled - Patient discharged Performed By: #### M 100.7900, BRC, L300.4310, BTS, L300.3900 #### [facility] [address] [place], [address] GLU Normal 70-99 [facility] Comment on above: Result Comment: Canc elled via OM: Order cancelled - Patient discharged Performed By: #### M 100.7900, BRC, L300.4310, BTS, L300.3900 #### [facility] [address] [place], [address] Potassium Normal 3.3-5.1 [facility] Comment on above: Result Comment: Canc elled via OM: Order cancelled - Patient discharged Performed By: #### M 100.7900, BRC, L300.4310, BTS, L300.3900 #### [facility] [address] [place], [address] Basic Metabolic Profile (BMP) Normal 133-145 [facility] Comment on above: Result Comment: Canc elled via OM: Order cancelled - Patient discharged Performed By: #### M 100.7900, BRC, L300.4310, BTS, L300.3900 #### [facility] [address] [place], [address] CBC W/Diff, Automatedon 08-2 Absolute Neut Normal 2.0-7.7 [facility] Comment on above: Result Comment: Canc elled via OM: Order cancelled - Patient discharged Performed By: #### M 100.7900, BRC, L300.4310, BTS, L300.3900 #### [facility] [address] [place], [address] HCT Normal 37-47 [facility] Comment on above: Result Comment: Canc elled via OM: Order cancelled - Patient discharged Performed By: #### M 100.7900, BRC, L300.4310, BTS, L300.3900 #### [facility] [address] [place], [address] HGB Normal 12.0-15.0 [facility] Comment on above: Result Comment: Canc elled via OM: Order cancelled - Patient discharged Performed By: #### M 100.7900, BRC, L300.4310, BTS, L300.3900 #### [facility] [address] [place], [address] MCH Normal 27.0-32.0 [facility] Comment on above: Result Comment: Canc elled via OM: Order cancelled - Patient discharged Performed By: #### M 100.7900, BRC, L300.4310, BTS, L300.3900 #### [facility] [address] [place], [address] MCHC Normal 32-36 [facility] Comment on above: Result Comment: Canc elled via OM: Order cancelled - Patient discharged Performed By: #### M 100.7900, BRC, L300.4310, BTS, L300.3900 #### [facility] [address] [place], [address] MCV Normal 81-99 [facility] Comment on above: Result Comment: Canc elled via OM: Order cancelled - Patient discharged Performed By: #### M 100.7900, BRC, L300.4310, BTS, L300.3900 #### [facility] [address] [place], [address] NEUT% Normal 47-70 [facility] Comment on above: Result Comment: Canc elled via OM: Order cancelled - Patient discharged Performed By: #### M 100.7900, BRC, L300.4310, BTS, L300.3900 #### [facility] [address] [place], [address] PLT Normal 150-450 [facility] Comment on above: Result Comment: Canc elled via OM: Order cancelled - Patient discharged Performed By: #### M 100.7900, BRC, L300.4310, BTS, L300.3900 #### [facility] [address] [place], [address] RBC Normal 4.2-5.4 [facility] Comment on above: Result Comment: Canc elled via OM: Order cancelled - Patient discharged Performed By: #### M 100.7900, BRC, L300.4310, BTS, L300.3900 #### [facility] [address] [place], [address] RDW CV Normal 11.6-14.6 [facility] Comment on above: Result Comment: Canc elled via OM: Order cancelled - Patient discharged Performed By: #### M 100.7900, BRC, L300.4310, BTS, L300.3900 #### [facility] [address] [place], [address] RDW SD Normal 35.1-43.9 [facility] Comment on above: Result Comment: Canc elled via OM: Order cancelled - Patient discharged Performed By: #### M 100.7900, BRC, L300.4310, BTS, L300.3900 #### [facility] [address] [place], [address] WBC Normal 4.4-11.0 [facility] Comment on above: Result Comment: Canc elled via OM: Order cancelled - Patient discharged Performed By: #### M 100.7900, BRC, L300.4310, BTS, L300.3900 #### [facility] [address] [place], [address] Absolute lymphocyte countOrd ered By: Katy De La Rosa on 01-10-2025 Lymphocytes Auto (Unsp spec) [#/Vol] 1.97 10*3/uL 0.83-4.51 [facility] Absolute neutrophil countOrd ered By: Katy De La Rosa on 01-10-2025 Neutrophils (Bld) [#/Vol] 7.7 10*3/uL 2.0-7.7 [facility] Anion gap in Serum or Plasma Ordered By: Katy Caballeroadelaida on 01-10-2025 Anion gap [Moles/Vol] 9 mmol/L 5- [facility] Automated lymphocyte count a s percentage of total leukocytesOrdered By: Katy Caballeroadelaida on 01-10-2025 Lymphocytes/100 WBC Auto (Unsp spec) 18.0 % Low [facility] BUN/creatinine ratioOrdered By: Katy Caballeroadelaida on 01-10-2025 Urea nitrogen/Creatinine [Mass ratio] 14.9 mg/mg 03-12 [facility] Basic Metabolic Profile (BMP )on 01-10-2025 BUN/CRE 14.9 RATIO Normal 03-12 [facility] Comment on above: Performed By: #### M 100.7900, BRC, L300.4310, BTS, L300.3900 #### [facility] [address] [place], [address] Calcium [Mass/Vol] 8.6 mg/dL Normal 7.6-11.0 [facility] Comment on above: Performed By: #### M 100.7900, BRC, L300.4310, BTS, L300.3900 #### [facility] [address] [place], [address] Chloride [Moles/Vol] 106 mmol/L Normal 98-108 [facility] Comment on above: Performed By: #### M 100.7900, BRC, L300.4310, BTS, L300.3900 #### [facility] [address] [place], [address] CO2 [Moles/Vol] 24.0 mmol/L Normal 21.0-32.0 [facility] Comment on above: Performed By: #### M 100.7900, BRC, L300.4310, BTS, L300.3900 #### [facility] [address] [place], [address] Creatinine [Mass/Vol] 0.50 mg/dL Low 0.70-1.20 [facility] Comment on above: Performed By: #### M 100.7900, BRC, L300.4310, BTS, L300.3900 #### [facility] [address] [place], [address] ECRCL 53.38 ml/min Normal 50-250 [facility] Comment on above: Performed By: #### M 100.7900, BRC, L300.4310, BTS, L300.3900 #### [facility] [address] [place], [address] GAP 9 Normal 5-15 [facility] Comment on above: Performed By: #### M 100.7900, BRC, L300.4310, BTS, L300.3900 #### [facility] [address] [place], [address] GFR/1.73 sq M.predicted among non-blacks MDRD (S/P/Bld) [Vol rate/Area] 96 mL/min/{1.73_m2} Normal >60 [facility] Comment on above: Result Comment: mL/m in/1.73m2 CKD-EPI Creatinine Equation (2020) Performed By: #### M 100.7900, BRC, L300.4310, BTS, L300.3900 #### [facility] [address] [place], [address] Glucose [Mass/Vol] 94 mg/dL Normal 70-99 [facility] Comment on above: Performed By: #### M 100.7900, BRC, L300.4310, BTS, L300.3900 #### [facility] [address] [place], [address] Potassium [Moles/Vol] 3.6 mmol/L Normal 3.3-5.1 [facility] Comment on above: Performed By: #### M 100.7900, BRC, L300.4310, BTS, L300.3900 #### [facility] [address] [place], [address] Sodium [Moles/Vol] 139 mmol/L Normal 133-145 [facility] Comment on above: Performed By: #### M 100.7900, BRC, L300.4310, BTS, L300.3900 #### [facility] [address] [place], [address] Urea nitrogen [Mass/Vol] 7 mg/dL Normal 4-19 [facility] Comment on above: Performed By: #### M 100.7900, BRC, L300.4310, BTS, L300.3900 #### [facility] [address] [place], [address] Basophil percentageOrdered B y: Katy De La Rosa on 01-10-2025 Basophils/100 WBC (Bld) 0.5 % 0-1 [facility] CBC W/Diff, Automatedon 12-23 Absolute Lymph 1.97 X10 3/uL Normal 0.83-4.51 [facility] Comment on above: Performed By: #### M 100.7900, BRC, L300.4310, BTS, L300.3900 #### [facility] [address] [place], [address] Absolute Neut 7.7 X10 3/uL Normal 2.0-7.7 [facility] Comment on above: Performed By: #### M 100.7900, BRC, L300.4310, BTS, L300.3900 #### [facility] [address] [place], [address] Basophils/100 WBC (Bld) 0.5 % Normal 0-1 [facility] Comment on above: Performed By: #### M 100.7900, BRC, L300.4310, BTS, L300.3900 #### [facility] [address] [place], [address] Eosinophils/100 WBC (Bld) 2.4 % Normal 0-5 [facility] Comment on above: Performed By: #### M 100.7900, BRC, L300.4310, BTS, L300.3900 #### [facility] [address] [place], [address] Erythrocyte distribution width (RBC) [Ratio] 13.8 % Normal 11.6-14.6 [facility] Comment on above: Performed By: #### M 100.7900, BRC, L300.4310, BTS, L300.3900 #### [facility] [address] [place], [address] Hematocrit (Bld) [Volume fraction] 25.5 % Low 37-47 [facility] Comment on above: Performed By: #### M 100.7900, BRC, L300.4310, BTS, L300.3900 #### [facility] [address] [place], [address] Hemoglobin (Bld) [Mass/Vol] 8.6 g/dL Low 12.0-15.0 [facility] Comment on above: Performed By: #### M 100.7900, BRC, L300.4310, BTS, L300.3900 #### [facility] [address] [place], [address] IG% 0.600 Normal 0.0-0.9 [facility] Comment on above: Result Comment: IG% - Immature Granulocytes (promyelocytes, myelocytes and metamyelocytes) > 1% indicates that a LEFT SHIFT is Present. Performed By: #### M 100.7900, BRC, L300.4310, BTS, L300.3900 #### [facility] [address] [place], [address] Lymphocytes/100 WBC (Bld) 18.0 % Low 19-41 [facility] Comment on above: Performed By: #### M 100.7900, BRC, L300.4310, BTS, L300.3900 #### [facility] [address] [place], [address] MCH (RBC) [Entitic mass] 31.2 pg Normal 27.0-32.0 [facility] Comment on above: Performed By: #### M 100.7900, BRC, L300.4310, BTS, L300.3900 #### [facility] [address] [place], [address] MCHC (RBC) [Mass/Vol] 33.7 g/dL Normal 32-36 [facility] Comment on above: Performed By: #### M 100.7900, BRC, L300.4310, BTS, L300.3900 #### [facility] [address] [place], [address] MCV (RBC) [Entitic vol] 92.4 fL Normal 81-99 [facility] Comment on above: Performed By: #### M 100.7900, BRC, L300.4310, BTS, L300.3900 #### [facility] [address] [place], [address] Monocytes/100 WBC (Bld) 7.9 % Normal 0-10 [facility] Comment on above: Performed By: #### M 100.7900, BRC, L300.4310, BTS, L300.3900 #### [facility] [address] [place], [address] Neutrophils/100 WBC (Bld) 70.6 % High 47-70 [facility] Comment on above: Performed By: #### M 100.7900, BRC, L300.4310, BTS, L300.3900 #### [facility] [address] [place], [address] Nucleated RBC (Bld) [#/Vol] 0 10*3/uL Normal 0-5 [facility] Comment on above: Performed By: #### M 100.7900, BRC, L300.4310, BTS, L300.3900 #### [facility] [address] [place], [address] Platelet mean volume (Bld) [Entitic vol] 10.9 fL Normal 6.2-12.0 [facility] Comment on above: Performed By: #### M 100.7900, BRC, L300.4310, BTS, L300.3900 #### [facility] [address] [place], [address] Platelets (Bld) [#/Vol] 284 10*3/uL Normal 150-450 [facility] Comment on above: Performed By: #### M 100.7900, BRC, L300.4310, BTS, L300.3900 #### [facility] [address] [place], [address] RBC (Bld) [#/Vol] 2.76 10*6/uL Low 4.2-5.4 [facility] Comment on above: Performed By: #### M 100.7900, BRC, L300.4310, BTS, L300.3900 #### [facility] [address] [place], [address] RDW SD 44.7 fl High 35.1-43.9 [facility] Comment on above: Performed By: #### M 100.7900, BRC, L300.4310, BTS, L300.3900 #### [facility] [address] [place], [address] WBC (Bld) [#/Vol] 11.0 10*3/uL Normal 4.4-11.0 [facility] Comment on above: Performed By: #### M 100.7900, BR, L300.4310, BTS, L300.3900 #### [facility] [address] [place], [address] Carbon dioxide, total [Moles /volume] in Central venous bloodOrdered By: Katy De La Rosa on 01-10-2025 CO2 [Moles/Vol] 24.0 mmol/L 21.0-32.0 [facility] Chloride assayOrdered By: Na adalid De La Rosa on 01-10-2025 Chloride [Moles/Vol] 106 mmol/L 98-108 [facility] Eosinophil percentageOrdered By: Katy De La Rosa on 01-10-2025 Eosinophils/100 WBC (Bld) 2.4 % 0-5 [facility] Erythrocyte distribution wid th ratioOrdered By: Katy De La Roas on 01-10-2025 Erythrocyte distribution width (RBC) [Ratio] 13.8 % 11.6-14.6 [facility] Erythrocyte distribution wid th standard deviationOrdered By: Katy De La Rosa on 01-10-2025 Erythrocyte distribution width (RBC) [Ratio] 44.7 fl High 35.1-43.9 [facility] Glomerular filtration rate ( GFR) estimation/1.73 sq m using serum, plasma, or whole bOrdered By: Katy De La Rosa on 01-10-2025 GFR/1.73 sq M.predicted among non-blacks MDRD (S/P/Bld) [Vol rate/Area] 96 mL/min/{1.73_m2} >60 [facility] Comment on above: mL/min/1.73m2 CKD-EP I Creatinine Equation (2020) Hematocrit Auto (Bld) [Volum e fraction]Ordered By: Katy De La Rosa on 01-10-2025 Hematocrit (Bld) [Volume fraction] 25.5 % Low 37-47 [facility] Hemoglobin measurementOrdere d By: Katy De La Rosa on 01-10-2025 Hemoglobin (Bld) [Mass/Vol] 8.6 g/dL Low 12.0-15.0 [facility] Immature granulocytes/100 WB C Auto (Bld)Ordered By: Katy De La Rosa on 01-10-2025 Immature granulocytes/100 WBC (Bld) 0.600 % 0.0-0.9 [facility] Comment on above: IG% - Immature Granu locytes (promyelocytes, myelocytes and metamyelocytes) > 1% indicates that a LEFT SHIFT is Present. MCV (mean corpuscular volume ) determinationOrdered By: Katy De La Rosa on 01-10-2025 MCV (RBC) [Entitic vol] 92.4 fL 81-99 [facility] Mean corpuscular hemoglobin (MCH) determinationOrdered By: Katy De La Rosa on 01-10-2025 MCH (RBC) [Entitic mass] 31.2 pg 27.0-32.0 [facility] Mean corpuscular hemoglobin concentration (MCHC) determinationOrdered By: Katy De La Rosa 01-10-2025 MCHC (RBC) [Mass/Vol] 33.7 g/dL 32-36 [facility] Mean platelet volume determi nationOrdered By: Katy De La Rosa on 01-10-2025 Platelet mean volume (Bld) [Entitic vol] 10.9 fL 6.2-12.0 [facility] Monocyte percentageOrdered B y: Katy De La Rosa on 01-10-2025 Monocytes/100 WBC (Bld) 7.9 % 0-10 [facility] Neutrophil percentageOrdered By: Katy De La Rosa on 01-10-2025 Neutrophils/100 WBC (Bld) 70.6 % High 47-70 [facility] Nucleated red blood cell per centageOrdered By: Katy De La Rosa on 01-10-2025 Nucleated RBC/100 WBC (Bld) [Ratio] 0 % 0-5 [facility] Platelet countOrdered By: Adalid De La Rosa on 01-10-2025 Platelets (Bld) [#/Vol] 284 10*3/uL 150-450 [facility] Potassium measurement (mass/ volume)Ordered By: Katy De La Rosa on 01-10-2025 Potassium (Unsp spec) [Mass/Vol] 3.6 mmol/L 3.3-5.1 [facility] RBC Auto (Bld) [#/Vol]Ordere d By: Katy De La Rosa on 01-10-2025 RBC (Bld) [#/Vol] 2.76 10*6/uL Low 4.2-5.4 [facility] Serum creatinine measurement (mass/volume)Ordered By: Katy De La Rosa on 01-10-2025 Creatinine [Mass/Vol] 0.50 mg/dL Low 0.70-1.20 [facility] Serum glucose measurement (m ass/volume)Ordered By: Katy De La Rosa on 01-10-2025 Glucose [Mass/Vol] 94 mg/dL 70-99 [facility] Serum or plasma calcium kayleen urement (mass/volume)Ordered By: Katy De La Rosa on 01-10-2025 Calcium [Mass/Vol] 8.6 mg/dL 7.6-11.0 [facility] Serum or plasma urea nitroge n measurement (mass/volume)Ordered By: Katy De La Rosa on 01-10-2025 Urea nitrogen [Mass/Vol] 7 mg/dL 4-19 [facility] Sodium levelOrdered By: Katy De La Rosa on 01-10-2025 Sodium [Moles/Vol] 139 mmol/L 133-145 [facility] White blood cell (WBC) count Ordered By: Katy De La Rosa on 01-10-2025 WBC (Bld) [#/Vol] 11.0 10*3/uL 4.4-11.0 [facility] Basic Metabolic Profile (BMP )on 01-09-2025 BUN/CRE 36.8 RATIO High - [facility] Comment on above: Performed By: #### M 100.7900, BRC, L300.4310, BTS, L300.3900 #### [facility] [address] [facility] [place], [address] Calcium [Mass/Vol] 8.1 mg/dL Normal 7.6-11.0 [facility] Comment on above: Performed By: #### M 100.7900, BRC, L300.4310, BTS, L300.3900 #### [facility] [address] [place], [address] Chloride [Moles/Vol] 107 mmol/L Normal 98-108 [facility] Comment on above: Performed By: #### M 100.7900, BRC, L300.4310, BTS, L300.3900 #### [facility] [address] [place], [address] CO2 [Moles/Vol] 19.3 mmol/L Low 21.0-32.0 [facility] Comment on above: Performed By: #### M 100.7900, BRC, L300.4310, BTS, L300.3900 #### [facility] [address] [place], [address] Creatinine [Mass/Vol] 0.47 mg/dL Low 0.70-1.20 [facility] Comment on above: Performed By: #### M 100.7900, BRC, L300.4310, BTS, L300.3900 #### [facility] [address] [place], [address] ECRCL 53.20 ml/min Normal 50-250 [facility] Comment on above: Performed By: #### M 100.7900, BRC, L300.4310, BTS, L300.3900 #### [facility] [address] [place], [address] GAP 10 Normal 5-15 [facility] Comment on above: Performed By: #### M 100.7900, BRC, L300.4310, BTS, L300.3900 #### [facility] [address] [place], [address] GFR/1.73 sq M.predicted among non-blacks MDRD (S/P/Bld) [Vol rate/Area] 98 mL/min/{1.73_m2} Normal >60 [facility] Comment on above: Result Comment: mL/m in/1.73m2 CKD-EPI Creatinine Equation (2020) Performed By: #### M 100.7900, BRC, L300.4310, BTS, L300.3900 #### [facility] [address] [place], [address] Glucose [Mass/Vol] 91 mg/dL Normal 70-99 [facility] Comment on above: Performed By: #### M 100.7900, BRC, L300.4310, BTS, L300.3900 #### [facility] [address] [place], [address] Potassium [Moles/Vol] 4.3 mmol/L Normal 3.3-5.1 [facility] Comment on above: Result Comment: Hemo lysis present, Results??could be affected. ?? Performed By: #### M 100.7900, BRC, L300.4310, BTS, L300.3900 #### [facility] [address] [place], [address] Sodium [Moles/Vol] 137 mmol/L Normal 133-145 [facility] Comment on above: Performed By: #### M 100.7900, BRC, L300.4310, BTS, L300.3900 #### [facility] [address] [place], [address] Urea nitrogen [Mass/Vol] 17 mg/dL Normal 4-19 [facility] Comment on above: Performed By: #### M 100.7900, BRC, L300.4310, BTS, L300.3900 #### [facility] [address] [place], [address] CBC W/Diff, Automatedon 12-22 Absolute Lymph 1.64 X10 3/uL Normal 0.83-4.51 [facility] Comment on above: Performed By: #### M 100.7900, BRC, L300.4310, BTS, L300.3900 #### [facility] [address] [place], [address] Absolute Neut 8.7 X10 3/uL High 2.0-7.7 [facility] Comment on above: Performed By: #### M 100.7900, BRC, L300.4310, BTS, L300.3900 #### [facility] [address] [place], [address] Basophils/100 WBC (Bld) 0.4 % Normal 0-1 [facility] Comment on above: Performed By: #### M 100.7900, BRC, L300.4310, BTS, L300.3900 #### [facility] [address] [place], [address] Eosinophils/100 WBC (Bld) 1.1 % Normal 0-5 [facility] Comment on above: Performed By: #### M 100.7900, BRC, L300.4310, BTS, L300.3900 #### [facility] [address] [place], [address] Erythrocyte distribution width (RBC) [Ratio] 13.4 % Normal 11.6-14.6 [facility] Comment on above: Performed By: #### M 100.7900, BRC, L300.4310, BTS, L300.3900 #### [facility] [address] [place], [address] Hematocrit (Bld) [Volume fraction] 21.0 % Low 37-47 [facility] Comment on above: Performed By: #### M 100.7900, BRC, L300.4310, BTS, L300.3900 #### [facility] [address] [place], [address] Hemoglobin (Bld) [Mass/Vol] 7.1 g/dL Low 12.0-15.0 [facility] Comment on above: Performed By: #### M 100.7900, BRC, L300.4310, BTS, L300.3900 #### [facility] [address] [place], [address] IG% 0.600 Normal 0.0-0.9 [facility] Comment on above: Result Comment: IG% - Immature Granulocytes (promyelocytes, myelocytes and metamyelocytes) > 1% indicates that a LEFT SHIFT is Present. Performed By: #### M 100.7900, BRC, L300.4310, BTS, L300.3900 #### [facility] [address] [place], [address] Lymphocytes/100 WBC (Bld) 14.5 % Low 19-41 [facility] Comment on above: Performed By: #### M 100.7900, BRC, L300.4310, BTS, L300.3900 #### [facility] [address] [place], [address] MCH (RBC) [Entitic mass] 32.0 pg Normal 27.0-32.0 [facility] Comment on above: Performed By: #### M 100.7900, BRC, L300.4310, BTS, L300.3900 #### [facility] [address] [place], [address] MCHC (RBC) [Mass/Vol] 33.8 g/dL Normal 32-36 [facility] Comment on above: Performed By: #### M 100.7900, BRC, L300.4310, BTS, L300.3900 #### [facility] [address] [place], [address] MCV (RBC) [Entitic vol] 94.6 fL Normal 81-99 [facility] Comment on above: Performed By: #### M 100.7900, BRC, L300.4310, BTS, L300.3900 #### [facility] [address] [place], [address] Monocytes/100 WBC (Bld) 6.8 % Normal 0-10 [facility] Comment on above: Performed By: #### M 100.7900, BRC, L300.4310, BTS, L300.3900 #### [facility] [address] [place], [address] Neutrophils/100 WBC (Bld) 76.6 % High 47-70 [facility] Comment on above: Performed By: #### M 100.7900, BRC, L300.4310, BTS, L300.3900 #### [facility] [address] [place], [address] Nucleated RBC (Bld) [#/Vol] 0 10*3/uL Normal 0-5 [facility] Comment on above: Performed By: #### M 100.7900, BRC, L300.4310, BTS, L300.3900 #### [facility] [address] [place], [address] Platelet mean volume (Bld) [Entitic vol] 11.0 fL Normal 6.2-12.0 [facility] Comment on above: Performed By: #### M 100.7900, BRC, L300.4310, BTS, L300.3900 #### [facility] [address] [place], [address] Platelets (Bld) [#/Vol] 283 10*3/uL Normal 150-450 [facility] Comment on above: Performed By: #### M 100.7900, BRC, L300.4310, BTS, L300.3900 #### [facility] [address] [place], [address] RBC (Bld) [#/Vol] 2.22 10*6/uL Low 4.2-5.4 [facility] Comment on above: Performed By: #### M 100.7900, BRC, L300.4310, BTS, L300.3900 #### [facility] [address] [place], [address] RDW SD 45.1 fl High 35.1-43.9 [facility] Comment on above: Performed By: #### M 100.7900, BRC, L300.4310, BTS, L300.3900 #### [facility] [address] [place], [address] WBC (Bld) [#/Vol] 11.3 10*3/uL High 4.4-11.0 [facility] Comment on above: Performed By: #### M 100.7900, BRC, L300.4310, BTS, L300.3900 #### [facility] [address] [place], [address] International normalized rat io (INR) calculationOrdered By: Katy De La Rosa on 01-09-2025 INR Coag (Bld) [Relative time] 1.2 {INR} [facility] Prothrombin Time w/INRon INR Coag (PPP) [Relative time] 1.2 {INR} Normal [facility] Comment on above: Order Comment: RED W. PREVIOUS SPECIMEN REJECTED DUE TOHEMOLYSIS. 01/09/25 0635 Monique Barboza. Performed By: #### M 100.7900, BRC, L300.4310, BTS, L300.3900 #### [facility] [address] [place], [address] PT Coag (PPP) [Time] 15.2 s High 11.7-14.9 [facility] Comment on above: Order Comment: ANAYELI W. PREVIOUS SPECIMEN REJECTED DUE TOHEMOLYSIS. 01/09/25 0635 Monique Barboza. Performed By: #### M 100.7900, BRC, L300.4310, BTS, L300.3900 #### [facility] [address] [place], [address] INR Normal [facility] Comment on above: Result Comment: This specimen has been REJECTED due to Laboratory criteria: Hemolyzed. PARAM has been notified of need of recollection. 01/09/25 0634 Monique Barboza Performed By: #### M 100.7900, BRC, L300.4310, BTS, L300.3900 #### [facility] [address] [place], [address] PROTIME Normal 11.7-14.9 [facility] Comment on above: Result Comment: This specimen has been REJECTED due to Laboratory criteria: Hemolyzed. PARAM has been notified of need of recollection. 01/09/25 0634 Monique Barboza Performed By: #### M 100.7900, BRC, L300.4310, BTS, L300.3900 #### [facility] [address] [place], [address] Prothrombin timeOrdered By: Katy De La Rosa on 01-09-2025 PT Coag (PPP) [Time] 15.2 s High 11.7-14.9 [facility] Abdomen/Pelvis without Conto n 01-08-2025 Abdomen/Pelvis without Cont [facility] Imaging Services [address] [place] [address] Abdomen/Pelvis without Cont MR#: [id number] Acct: [id number] Name: SADE RUSH Rep #: [id number] : 1945 F 79 From: Jake Sterling MD PCP: Dr. Ishaan Bernabe MD Status: ADM IN Study: Abdomen/Pelvis without Cont Date of Exam: 12/22 01/15 Exam# [id number] Ordering Dr: Marquise Montano MD PROCEDURE: ABDOMEN/PELVIS WITHOUT CONT 01/08/2025 REASON FOR EXAM: INTRACTABLE N/V TECHNIQUE: ABDOMEN/PELVIS WITHOUT CONT Noncontrast technique limits evaluation of the abdominal and pelvic viscera. Coronal and Sagittal reconstruction series were provided. One or more dose reduction techniques were used (e.g., Automated exposure control, adjustment of the mA and/or kV according to patient size, use of iterative reconstruction technique). RADIATION DOSE SUMMARY: CTDlvol: 12 mGy DLP: 629 mGycm FINDINGS: The peripheral soft tissues unremarkable. Degenerative changes of the spine. Grade 1 anterolisthesis of L4 on L5. Left adnexal 5.8 x 9.1 cm fluid collection. The liver is unremarkable. The gallbladder is not visualized. The pancreas, spleen, adrenals are unremarkable. Small bilateral renal calcifications likely representing nonobstructive calculi. No hydronephrosis. The urinary bladder is unremarkable. Normal caliber large and small bowel without surrounding inflammatory changes. CT/Abdomen/Pelvis without Cont IMPRESSION: Left adnexal cystic collection. Further characterization with ultrasound is recommended. No other acute abnormalities of the abdomen or pelvis. Reading Location: [facility] CC: Dr. Ishaan Bernabe MD; Dr. Marquise Montano MD Sharemilker: Signed Normal [facility] Absolute lymphocyte countOrd ered By: Xuan Mcdaniels on 01-08-2025 Lymphocytes Auto (Unsp spec) [#/Vol] 2.33 10*3/uL 0.83-4.51 [facility] Absolute neutrophil countOrd ered By: Xuan Mcdaniels on 01-08-2025 Neutrophils (Bld) [#/Vol] 8.3 10*3/uL High 2.0-7.7 [facility] Activated partial thrombopla stin time (aPTT) in platelet poor plasma by coagulation aOrdered By: Xuan Mcdaniels on 01-08-2025 aPTT Coag (PPP) [Time] 24.3 s 24.1-36.2 [facility] Anion gap in Serum or Plasma Ordered By: Xuan Mcdaniels on 01-08-2025 Anion gap [Moles/Vol] 9 mmol/L 5-15 [facility] Anion gap in Serum or Plasma Ordered By: Ishaan Bernabe on 01-08-2025 Anion gap [Moles/Vol] 10 mmol/L 10-05 [facility] Automated lymphocyte count a s percentage of total leukocytesOrdered By: Xuan Mcdaniels on 01-08-2025 Lymphocytes/100 WBC Auto (Unsp spec) 20.1 % 19-41 [facility] BRCon 01-08-2025 RC Normal [facility] Comment on above: Result Comment: [id number] OP RC TRANSFUSED 01/08/25 1133 Performed By: #### M 100.7900, BRC, L300.4310, BTS, L300.3900 #### [facility] [address] [place], [place], [address] Result Comment: [id number] OP RC TRANSFUSED 01/09/25 1307 Result Comment: [id number] OP RC TRANSFUSED 01/08/25 1525 BUN/creatinine ratioOrdered By: Xuan Mcdaniels on 01-08-2025 Urea nitrogen/Creatinine [Mass ratio] 52.6 mg/mg High 03-12 [facility] BUN/creatinine ratioOrdered By: Ishaan Bernabe on 01-08-2025 Urea nitrogen/Creatinine [Mass ratio] 55.3 mg/mg High 03-12 [facility] Basophil percentageOrdered B y: Xuan Mcdaniels on 01-08-2025 Basophils/100 WBC (Bld) 0.3 % 0-1 [facility] Bilirubin, totalOrdered By: Xuan Mcdaniels on 01-08-2025 Bilirubin [Mass/Vol] 0.23 mg/dL 0.00-1.30 [facility] Bilirubin, totalOrdered By: Ishaan Bernabe on 01-08-2025 Bilirubin [Mass/Vol] 0.22 mg/dL 0.00-1.30 [facility] CBC W/Diff, Automatedon 12-22 Absolute Neut Normal 2.0-7.7 [facility] Comment on above: Order Comment: 129-1 Result Comment: NO S PECIMEN DRAWN Performed By: #### L 500.4050, L100.0500 #### [facility] [address] [place], [address] HCT Normal 37-47 [facility] Comment on above: Order Comment: Result Comment: NO S PECIMEN DRAWN Performed By: #### L 500.4050, L100.0500 #### [facility] [address] [place], [address] HGB Normal 12.0-15.0 [facility] Comment on above: Order Comment: Result Comment: NO S PECIMEN DRAWN Performed By: #### L 500.4050, L100.0500 #### [facility] [address] [place], [address] MCH Normal 27.0-32.0 [facility] Comment on above: Order Comment: Result Comment: NO S PECIMEN DRAWN Performed By: #### L 500.4050, L100.0500 #### [facility] [address] [place], [address] MCHC Normal 32-36 [facility] Comment on above: Order Comment: Result Comment: NO S PECIMEN DRAWN Performed By: #### L 500.4050, L100.0500 #### [facility] [address] [place], [address] MCV Normal 81-99 [facility] Comment on above: Order Comment: Result Comment: NO S PECIMEN DRAWN Performed By: #### L 500.4050, L100.0500 #### [facility] [address] [place], [address] NEUT% Normal 47-70 [facility] Comment on above: Order Comment: Result Comment: NO S PECIMEN DRAWN Performed By: #### L 500.4050, L100.0500 #### [facility] [address] [place], [address] PLT Normal 150-450 [facility] Comment on above: Order Comment: - Result Comment: NO S PECIMEN DRAWN Performed By: #### L 500.4050, L100.0500 #### [facility] [address] [place], [address] RBC Normal 4.2-5.4 [facility] Comment on above: Order Comment: Result Comment: NO S PECIMEN DRAWN Performed By: #### L 500.4050, L100.0500 #### [facility] [address] [place], [address] RDW CV Normal 11.6-14.6 [facility] Comment on above: Order Comment: Result Comment: NO S PECIMEN DRAWN Performed By: #### L 500.4050, L100.0500 #### [facility] [address] [place], [address] RDW SD Normal 35.1-43.9 [facility] Comment on above: Order Comment: Result Comment: NO S PECIMEN DRAWN Performed By: #### L 500.4050, L100.0500 #### [facility] [address] [place], [address] WBC Normal 4.4-11.0 [facility] Comment on above: Order Comment: Result Comment: NO S PECIMEN DRAWN Performed By: #### L 500.4050, L100.0500 #### [facility] [address] [place], [address] Hemoglobin (Bld) [Mass/Vol] 5.6 g/dL Invalid Interpretation Code 12.0-15.0 [facility] Comment on above: Result Comment: CRIT ICAL VALUE CALLED TO Lee Ann WILKINS 01/08/25 Neeta Crowe. RESULTS READ BACK BY NORA. Performed By: #### L 500.4050, L501.2450, L100.0100 #### [facility] [address] [place], [address] Absolute Lymph 2.33 X10 3/uL Normal 0.83-4.51 [facility] Comment on above: Performed By: #### L 500.4050, L501.2450, L100.0100 #### [facility] [address] [place], [address] Absolute Neut 8.3 X10 3/uL High 2.0-7.7 [facility] Comment on above: Performed By: #### L 500.4050, L501.2450, L100.0100 #### [facility] [address] [place], [address] Basophils/100 WBC (Bld) 0.3 % Normal 0-1 [facility] Comment on above: Performed By: #### L 500.4050, L501.2450, L100.0100 #### [facility] [address] [place], [address] Eosinophils/100 WBC (Bld) 0.8 % Normal 0-5 [facility] Comment on above: Performed By: #### L 500.4050, L501.2450, L100.0100 #### [facility] [address] [place], [address] Erythrocyte distribution width (RBC) [Ratio] 12.3 % Normal 11.6-14.6 [facility] Comment on above: Performed By: #### L 500.4050, L501.2450, L100.0100 #### [facility] [address] [place], [address] Hematocrit (Bld) [Volume fraction] 17.4 % Low 37-47 [facility] Comment on above: Performed By: #### L 500.4050, L501.2450, L100.0100 #### [facility] [address] [place], [address] IG% 0.500 Normal 0.0-0.9 [facility] Comment on above: Result Comment: IG% - Immature Granulocytes (promyelocytes, myelocytes and metamyelocytes) > 1% indicates that a LEFT SHIFT is Present. Performed By: #### L 500.4050, L501.2450, L100.0100 #### [facility] [address] [place], [address] Lymphocytes/100 WBC (Bld) 20.1 % Normal 19-41 [facility] Comment on above: Performed By: #### L 500.4050, L501.2450, L100.0100 #### [facility] [address] [place], [address] MCH (RBC) [Entitic mass] 31.6 pg Normal 27.0-32.0 [facility] Comment on above: Performed By: #### L 500.4050, L501.2450, L100.0100 #### [facility] [address] [place], [address] MCHC (RBC) [Mass/Vol] 32.2 g/dL Normal 32-36 [facility] Comment on above: Performed By: #### L 500.4050, L501.2450, L100.0100 #### [facility] [address] [place], [address] MCV (RBC) [Entitic vol] 98.3 fL Normal 81-99 [facility] Comment on above: Performed By: #### L 500.4050, L501.2450, L100.0100 #### [facility] [address] [place], [address] Monocytes/100 WBC (Bld) 6.3 % Normal 0-10 [facility] Comment on above: Performed By: #### L 500.4050, L501.2450, L100.0100 #### [facility] [address] [place], [address] Neutrophils/100 WBC (Bld) 72.0 % High 47-70 [facility] Comment on above: Performed By: #### L 500.4050, L501.2450, L100.0100 #### [facility] [address] [place], [address] Nucleated RBC (Bld) [#/Vol] 0 10*3/uL Normal 0-5 [facility] Comment on above: Performed By: #### L 500.4050, L501.2450, L100.0100 #### [facility] [address] [place], [address] Platelet mean volume (Bld) [Entitic vol] 11.0 fL Normal 6.2-12.0 [facility] Comment on above: Performed By: #### L 500.4050, L501.2450, L100.0100 #### [facility] [address] [place], [address] Platelets (Bld) [#/Vol] 350 10*3/uL Normal 150-450 [facility] Comment on above: Performed By: #### L 500.4050, L501.2450, L100.0100 #### [facility] [address] [place], [address] RBC (Bld) [#/Vol] 1.77 10*6/uL Low 4.2-5.4 [facility] Comment on above: Performed By: #### L 500.4050, L501.2450, L100.0100 #### [facility] [address] [place], [address] RDW SD 42.6 fl Normal 35.1-43.9 [facility] Comment on above: Performed By: #### L 500.4050, L501.2450, L100.0100 #### [facility] [address] [place], [address] WBC (Bld) [#/Vol] 11.6 10*3/uL High 4.4-11.0 [facility] Comment on above: Performed By: #### L 500.4050, L501.2450, L100.0100 #### [facility] [address] [place], [address] CBC-Complete Blood Cnt No Di ffon 01-08-2025 Hemoglobin (Bld) [Mass/Vol] 5.4 g/dL Invalid Interpretation Code 12.0-15.0 [facility] Comment on above: Order Comment: 129-1 Result Comment: CRIT ICAL VALUE CALLED TO Jaydon GARCÍA 01/08/25 0848 Fabby Crowe. RESULTS READ BACK BY SAME. Performed By: #### L 500.4050, L100.0500 #### [facility] [address] [place], [address] Erythrocyte distribution width (RBC) [Ratio] 12.1 % Normal 11.6-14.6 [facility] Comment on above: Order Comment: 129-1 Performed By: #### L 500.4050, L100.0500 #### [facility] [address] [place], [address] Hematocrit (Bld) [Volume fraction] 17.2 % Low 37-47 [facility] Comment on above: Order Comment: 129-1 Performed By: #### L 500.4050, L100.0500 #### [facility] [address] [place], [address] MCH (RBC) [Entitic mass] 31.2 pg Normal 27.0-32.0 [facility] Comment on above: Order Comment: 129-1 Performed By: #### L 500.4050, L100.0500 #### [facility] [address] [place], [address] MCHC (RBC) [Mass/Vol] 31.4 g/dL Low 32-36 [facility] Comment on above: Order Comment: 129-1 Performed By: #### L 500.4050, L100.0500 #### [facility] [address] [place], [address] MCV (RBC) [Entitic vol] 99.4 fL High 81-99 [facility] Comment on above: Order Comment: 129-1 Performed By: #### L 500.4050, L100.0500 #### [facility] [address] [place], [address] Platelet mean volume (Bld) [Entitic vol] 11.4 fL Normal 6.2-12.0 [facility] Comment on above: Order Comment: 129-1 Performed By: #### L 500.4050, L100.0500 #### [facility] [address] [place], [address] Platelets (Bld) [#/Vol] 362 10*3/uL Normal 150-450 [facility] Comment on above: Order Comment: 129-1 Performed By: #### L 500.4050, L100.0500 #### [facility] [address] [place], [address] RBC (Bld) [#/Vol] 1.73 10*6/uL Low 4.2-5.4 [facility] Comment on above: Order Comment: 129-1 Performed By: #### L 500.4050, L100.0500 #### [facility] [address] [place], [address] RDW SD 42.7 fl Normal 35.1-43.9 [facility] Comment on above: Order Comment: 129-1 Performed By: #### L 500.4050, L100.0500 #### [facility] [address] [place], [address] WBC (Bld) [#/Vol] 11.2 10*3/uL High 4.4-11.0 [facility] Comment on above: Order Comment: 129-1 Performed By: #### L 500.4050, L100.0500 #### [facility] [address] [place], [address] Carbon dioxide, total [Moles /volume] in Central venous bloodOrdered By: Xuan Mcdaniels on 01-08-2025 CO2 [Moles/Vol] 23.6 mmol/L 21.0-32.0 [facility] Carbon dioxide, total [Moles /volume] in Central venous bloodOrdered By: Ishaan Bernabe on 01-08-2025 CO2 [Moles/Vol] 22.5 mmol/L 21.0-32.0 [facility] Chloride assayOrdered By: Jaqui Mcdaniels on 01-08-2025 Chloride [Moles/Vol] 107 mmol/L 98-108 [facility] Chloride assayOrdered By: Mary Bernabe on 01-08-2025 Chloride [Moles/Vol] 106 mmol/L 98-108 [facility] Comprehensive Metabolic Prof ilon 01-08-2025 Albumin [Mass/Vol] 3.4 g/dL Normal 3.4-4.8 [facility] Comment on above: Performed By: #### L 500.4050, L501.2450, L100.0100 #### [facility] [address] [place], [address] Albumin/Globulin [Mass ratio] 1.6 {ratio} Normal 0.9-2.4 [facility] Comment on above: Performed By: #### L 500.4050, L501.2450, L100.0100 #### [facility] [address] [place], [address] ALK PHOS 63 U/L Normal 35-104 [facility] Comment on above: Performed By: #### L 500.4050, L501.2450, L100.0100 #### [facility] [address] [place], [address] ALT [Catalytic activity/Vol] 21 U/L Normal <=34 [facility] Comment on above: Performed By: #### L 500.4050, L501.2450, L100.0100 #### [facility] [address] [place], [address] AST [Catalytic activity/Vol] 20 U/L Normal <=31 [facility] Comment on above: Performed By: #### L 500.4050, L501.2450, L100.0100 #### [facility] [address] [place], [address] Bilirubin [Mass/Vol] 0.23 mg/dL Normal 0.00-1.30 [facility] Comment on above: Performed By: #### L 500.4050, L501.2450, L100.0100 #### [facility] [address] [place], [address] BUN/CRE 52.6 RATIO High 10-20 [facility] Comment on above: Performed By: #### L 500.4050, L501.2450, L100.0100 #### [facility] [address] [place], [address] Calcium [Mass/Vol] 9.0 mg/dL Normal 7.6-11.0 [facility] Comment on above: Performed By: #### L 500.4050, L501.2450, L100.0100 #### [facility] [address] [place], [address] Chloride [Moles/Vol] 107 mmol/L Normal 98-108 [facility] Comment on above: Performed By: #### L 500.4050, L501.2450, L100.0100 #### [facility] [address] [place], [address] CO2 [Moles/Vol] 23.6 mmol/L Normal 21.0-32.0 [facility] Comment on above: Performed By: #### L 500.4050, L501.2450, L100.0100 #### [facility] [address] [place], [address] Creatinine [Mass/Vol] 0.61 mg/dL Low 0.70-1.20 [facility] Comment on above: Performed By: #### L 500.4050, L501.2450, L100.0100 #### [facility] [address] [place], [address] ECRCL 55.63 ml/min Normal 50-250 [facility] Comment on above: Performed By: #### L 500.4050, L501.2450, L100.0100 #### [facility] [address] [place], [address] GAP 9 Normal 5-15 [facility] Comment on above: Performed By: #### L 500.4050, L501.2450, L100.0100 #### [facility] [address] [place], [address] GFR/1.73 sq M.predicted among non-blacks MDRD (S/P/Bld) [Vol rate/Area] 92 mL/min/{1.73_m2} Normal >60 [facility] Comment on above: Result Comment: mL/m in/1.73m2 CKD-EPI Creatinine Equation (2020) Performed By: #### L 500.4050, L501.2450, L100.0100 #### [facility] [address] [place], [address] Globulin (S) [Mass/Vol] 2.1 g/dL Low 2.2-4.2 [facility] Comment on above: Performed By: #### L 500.4050, L501.2450, L100.0100 #### [facility] [address] [place], [address] Glucose [Mass/Vol] 121 mg/dL High 70-99 [facility] Comment on above: Performed By: #### L 500.4050, L501.2450, L100.0100 #### [facility] [address] [place], [address] Potassium [Moles/Vol] 4.2 mmol/L Normal 3.3-5.1 [facility] Comment on above: Performed By: #### L 500.4050, L501.2450, L100.0100 #### [facility] [address] [place], [address] Sodium [Moles/Vol] 140 mmol/L Normal 133-145 [facility] Comment on above: Performed By: #### L 500.4050, L501.2450, L100.0100 #### [facility] [address] [place], [address] T PROT 5.4 g/dL Low 5.9-8.4 [facility] Comment on above: Performed By: #### L 500.4050, L501.2450, L100.0100 #### [facility] [address] [place], [address] Urea nitrogen [Mass/Vol] 32 mg/dL High 4-19 [facility] Comment on above: Performed By: #### L 500.4050, L501.2450, L100.0100 #### [facility] [address] [place], [address] Albumin [Mass/Vol] 3.2 g/dL Low 3.4-4.8 [facility] Comment on above: Order Comment: 129-1 Performed By: #### L 500.4050, L100.0500 #### [facility] [address] [place], [address] Albumin/Globulin [Mass ratio] 1.6 {ratio} Normal 0.9-2.4 [facility] Comment on above: Order Comment: 129-1 Performed By: #### L 500.4050, L100.0500 #### [facility] [address] [place], [address] ALK PHOS 60 U/L Normal 35-104 [facility] Comment on above: Order Comment: 129-1 Performed By: #### L 500.4050, L100.0500 #### [facility] [address] [place], [address] ALT [Catalytic activity/Vol] 17 U/L Normal <=34 [facility] Comment on above: Order Comment: 129-1 Performed By: #### L 500.4050, L100.0500 #### [facility] [address] [place], [address] AST [Catalytic activity/Vol] 19 U/L Normal <=31 [facility] Comment on above: Order Comment: 129-1 Performed By: #### L 500.4050, L100.0500 #### [facility] [address] [place], [address] Bilirubin [Mass/Vol] 0.22 mg/dL Normal 0.00-1.30 [facility] Comment on above: Order Comment: 129-1 Performed By: #### L 500.4050, L100.0500 #### [facility] [address] [place], [address] BUN/CRE 55.3 RATIO High 10-20 [facility] Comment on above: Order Comment: 129-1 Performed By: #### L 500.4050, L100.0500 #### [facility] [address] [place], [address] Calcium [Mass/Vol] 8.8 mg/dL Normal 7.6-11.0 [facility] Comment on above: Order Comment: 129-1 Performed By: #### L 500.4050, L100.0500 #### [facility] [address] [place], [address] Chloride [Moles/Vol] 106 mmol/L Normal 98-108 [facility] Comment on above: Order Comment: 129-1 Performed By: #### L 500.4050, L100.0500 #### [facility] [address] [place], [address] CO2 [Moles/Vol] 22.5 mmol/L Normal 21.0-32.0 [facility] Comment on above: Order Comment: 129-1 Performed By: #### L 500.4050, L100.0500 #### [facility] [address] [place], [address] Creatinine [Mass/Vol] 0.60 mg/dL Low 0.70-1.20 [facility] Comment on above: Order Comment: 129-1 Performed By: #### L 500.4050, L100.0500 #### [facility] [address] [place], [address] GAP 10 Normal 5-15 [facility] Comment on above: Order Comment: 129-1 Performed By: #### L 500.4050, L100.0500 #### [facility] [address] [place], [address] GFR/1.73 sq M.predicted among non-blacks MDRD (S/P/Bld) [Vol rate/Area] 92 mL/min/{1.73_m2} Normal >60 [facility] Comment on above: Order Comment: 129-1 Result Comment: mL/m in/1.73m2 CKD-EPI Creatinine Equation (2020) Performed By: #### L 500.4050, L100.0500 #### [facility] [address] [place], [address] Globulin (S) [Mass/Vol] 2.0 g/dL Low 2.2-4.2 [facility] Comment on above: Order Comment: 129-1 Performed By: #### L 500.4050, L100.0500 #### [facility] [address] [place], [address] Glucose [Mass/Vol] 121 mg/dL High 70-99 [facility] Comment on above: Order Comment: 129-1 Performed By: #### L 500.4050, L100.0500 #### [facility] [address] [place], [address] Potassium [Moles/Vol] 4.0 mmol/L Normal 3.3-5.1 [facility] Comment on above: Order Comment: 129-1 Performed By: #### L 500.4050, L100.0500 #### [facility] [address] [place], [address] Sodium [Moles/Vol] 138 mmol/L Normal 133-145 [facility] Comment on above: Order Comment: 129-1 Performed By: #### L 500.4050, L100.0500 #### [facility] [address] [place], [address] T PROT 5.2 g/dL Low 5.9-8.4 [facility] Comment on above: Order Comment: 129-1 Performed By: #### L 500.4050, L100.0500 #### [facility] [address] [place], [address] Urea nitrogen [Mass/Vol] 33 mg/dL High 4-19 [facility] Comment on above: Order Comment: 129-1 Performed By: #### L 500.4050, L100.0500 #### [facility] [address] [place], [address] Consultation - Intens[place]iston 01-08-2025 Consultation - Take Down Sorter [facility] Medical Records Department [address] [place] [address] Consultation - Take Down Sorter 01/08/25 1610 MR#: [id number] Acct: [id number] Name: SADE RUSH Rep #: [id number] : 1945 79 From: Marquise Montano MD PCP: Dr. Ishaan Bernabe MD Status:ADM IN Location: ICU [id number] HPI Consult Data Date of Consult: 01/08/25 HPI Narrative Reason for Consultation: Severe anemia, ?GIB, intractable N, melena, poor PO intake x1 week HPI Narrative: 79Y F PMH myasthenia gravis prior GIB with EGD in 2000 who [place] with 1 week Hx of poor PO intake, nausea melena. She denies fevers/chills/chest pain/SOB, abdominal pain, fever or chills, any coffee-ground emesis or any bright red bleeding per rectum. In the ED she was noted to have a Hgb of 5.6. She refused CT scan and is currently refusing EGD. She is concerned with costs, radiation exposure and the risk of getting meds that could worsen her MG. She is receiving PRBCs. Vitals stable. Continues to have severe nausea but did receive Zofran 10 min ago. [facility] Medical History Anxiety Depression Chronic pain Osteoarthritis GERD (gastroesophageal reflux disease) Former smoker Pulmonary embolism Hypertension Migraines Anxiety and depression Hx of gastroesophageal reflux (GERD) Fibromyalgia Diabetes mellitus Myasthenia gravis Hx pulmonary embolism Home Medications ???Medication ???Instructions ???Recorded ???Last Taken ???Type montelukast 10 mg tablet 10 mg PO DAILY ALLERGIES 05/04/19 01/04/25 History sertraline 100 mg tablet 100 mg PO DAILY DEPRESSION 9 01/07/25 History albuterol sulfate 90 mcg/actuation 2 puff inhalation Q4H PRN 01/06/25 History aerosol inhaler shortness of breath or wheezing budesonide-formotero l HFA 80 2 puff inhalation BID DYSPNEA 09/2301/07/25 History mcg-4.5 mcg/actuation aerosol inhaler estradiol 0.5 mg tablet 0.5 mg PO DAILY POSTMENOPAUSAL 01/06/25 History pyridostigmine bromide 60 mg tablet 60 mg PO Q8H FOR MUSCLE STRENGT H 10/22/23 01/07/25 History sumatriptan succinate 100 mg tablet 100 mg PO PRN MIGRAINE 10/22/23 Unknown History cholecalciferol (vitamin D3) 25 2,000 unit PO DAILY supplement 09/1401/04/25 History mcg (1,000 unit) capsule (Vitamin D3) amlodipine 10 mg tablet 10 mg PO DAILY HTN #0 tabs 4 12/30/24 Rx acetaminophen 325 mg tablet 650 mg PO Q6H PRN pain 01/08/25 Un known History cromolyn 4 % eye drops 2 drp ophthalmic (eye) Q6H PRN 12/24/24 History VERNAL CONJUNCTIVITIS fluticasone propionate 50 1 spray intranasal Q12H ALLERGY 01/07/25 History mcg/actuation nasal SYMPTOM spray,suspension hydrocodone-acetamin ophen 5-325mg 1 tab PO Q6H PRN Pain 5-10 Or 01/07/25 History 5mg-325mg Fever > 100.7 F lidocaine 4 % topical patch 1 patch topical DAILY PRN pain Unknown History (Aspercreme (lidocaine)) loperamide 2 mg capsule 2 mg PO Q4H PRN DIARRHEA 01/08/25 01/06/25 History loratadine 10 mg tablet 10 mg PO DAILY ALLERGIES 01/08/25 01/04/25 History (Allerclear) melatonin 3 mg tablet 3 mg PO PRN Insomnia 01/08/25 Unkn own History naphazoline-glycerin 0.03 %-0.5 % 2 drp ophthalmic (eye) Q4H PRN Unknown History eye drops (Clear Eyes Cooling ITCHY EYES Comfort) naproxen sodium 220 mg capsule 220 mg PO BID PRN pain 01/08/25 History (Aleve) ondansetron HCl 4 mg tablet 4 mg PO Q6H PRN nausea and vomitin g 01/08/25 01/07/25 History pantoprazole 40 mg tablet,delayed 40 mg PO DAILY GASTRITIS 01/08/25 Unknown History release (Protonix) simethicone 125 mg tablet 125 mg PO Q8H PRN abdominal 12/25/24 History (Bicarsim Forte) distention vit A 300 mcg-C 200 mg-E 27 1 tab PO DAILY VERNAL 01/08/25 History mg-lutein 2 mg and minerals tablet CONJUNCTIVITIS (I-Hernan) Allergy/AdvReac Type Severity Reaction Status Date / Time Beta-Blockers Allergy Severe Other Verified 10/22/23 12:02 (Beta-Adrenergic Bloc Horse/Equine Containing AdvReac NEEDS Verified 10/22/23 12:00 Products FOLLOW-UP Sugars, Metabolically Active AdvReac Unknown Verified 10/22/23 12:00 Family History Other Lupus (systemic lupus erythematosus) Scleroderma Surgical History Hx of thymectomy Social History Smoking Status: Former smoker ROS ROS Narrative Full 12 point ROS completed and neg unless stated in HPI above. Objective Data Objective Data Vital Signs: Vital Signs Last response 3 Temperature 36.8 C 01/08/25 15:49 Te (more content not included)... Normal [facility] EGD Reporton 01-08-2025 EGD Report [facility] Medical Records Department [address] [place] [address] EGD Report MR#: [id number] Acct: [id number] Name: SADE RUSH Rep #: [id number] : 1945 79 From: Brennen Foy DO PCP: Dr. Ishaan Bernabe MD Status:ADM IN Patient Name: Sade Rush Procedure Date: 01/08/2025 6:33 PM Date of : 1945 Age: 79 Procedure: Upper GI endoscopy Indications: Iron deficiency anemia, Melena Providers: Brennen Foy DO Medicines: Monitored Anesthesia Care Patient Profile: This is a 79 year old female. Refer to note in patient chart for documentation of history and physical. Patient has symptoms. Her most recent EGD for treatment of bleeding. Complications: No immediate complications. Procedure: Pre-Anesthesia Assessment: - Prior to the procedure, a History and Physical was performed, and patient medications and allergies were reviewed. The patient is competent. The risks and benefits of the procedure and the sedation options and risks were discussed with the patient. All questions were answered and informed consent was obtained. Patient identification and proposed procedure were verified by the physician. Mental Status Examination: normal. Prophylactic Antibiotics: The patient does not require prophylactic antibiotics. Prior Anticoagulants: The patient has taken no anticoagulant or antiplatelet agents except for NSAID medication. ASA Grade Assessment: II - A patient with mild systemic disease. After reviewing the risks and benefits, the patient was deemed in satisfactory condition to undergo the procedure. The anesthesia plan was to use monitored anesthesia care (MAC). Immediately prior to administration of medications, the patient was re-assessed for adequacy to receive sedatives. The heart rate, respiratory rate, oxygen saturations, blood pressure, adequacy of pulmonary ventilation, and response to care were monitored throughout the procedure. The physical status of the patient was re-assessed after the procedure. After obtaining informed consent, the endoscope was passed under direct vision. Throughout the procedure, the patient's blood pressure, pulse, and oxygen saturations were monitored continuously. The colonoscope was introduced through the mouth, and advanced to the fourth part of the duodenum. Small bowel enteroscopy was deemed necessary. The upper GI endoscopy was accomplished without difficulty. The patient tolerated the procedure well. Scope In: 6:47:07 PM Scope Out: 6:54:24 PM Total Procedure Duration Time 0 hours 7 minutes 17 seconds Findings: The examined esophagus was normal. No gross lesions were noted in the entire examined stomach. A single large angiodysplastic lesion with bleeding was found in the first portion of the duodenum. Coagulation for hemostasis using heater probe was successful. To stop active bleeding, one hemostatic clip was successfully placed. Clip clinical supervisor: Shepherd mAPPn. There was no bleeding at the end of the procedure. Impression: - Normal esophagus. - No gross lesions in the entire stomach. 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 Treated with a heater probe. Clip was placed. Clip clinical supervisor: [employer]. - No specimens collected. Recommendation: - Return patient to ICU for ongoing care. - Full liquid diet today. - Continue present medications. - PPI ip for 24 hours - Carafate 3 times a day Procedure Code(s): --- Professional --- 68899, Small intestinal endoscopy, enteroscopy beyond second portion of duodenum, not including ileum; with control of bleeding (eg, injection, bipolar cautery, unipolar cautery, laser, heater probe, stapler, plasma complaint evaluation supervisor) CPT copyright 2021 [employer]. All rights reserved. The codes documented in this report are preliminary and upon retail sales lead review may be revised to meet current compliance requirements. Brennen Foy DO 01/08/2025 6:58:42 PM This report has been signed electronically. Number of Addenda: 0 Note Initiated On: 01/08/2025 6:33 PM 01/08/251857 Date Brennen Foy DO Cosigner Signature: Date (if indicated) CC: Dr. Ishaan Bernabe MD; Brennen Foy DO Date Dictated: 01/08/25 1833 Date Transcribed: Sharemilker: PIPE Signed Normal [facility] Emergency Department Summary on 01-08-2025 Emergency Department Summary [facility] Medical Records Department [address] [place] [address] Emergency Department Summary 01/08/25 MR#: [id number] Acct: [id number] Name: SADE RUSH Rep #: [id number] : 1945 79 From: Xuan Mcdaniels MD PCP: Dr. Ishaan Bernabe MD Status:ADM IN Location: ICU [id number] HPI History of Present Illness Chief Complaint: Abn Labs Narrative Narrative: Patient is a 79-year-old female presenting to the emergency department for nausea, vomiting and black tarry stool with a low hemoglobin noted by doctor at her nursing facility. Patient has a past medical history of myasthenia gravis and does not ambulate secondary to this. States that she has had GI bleeds in the past and required blood transfusions. States that since she has had nausea and episodes of nonbloody vomiting. Reports that she has also had diarrhea that the techs reported were black tarry. She denies fever, chills, chest pain, shortness of breath, abdominal pain. Denies any dysuria or hematuria. Denies any hematemesis. [facility] Medical History Anxiety Depression Chronic pain Osteoarthritis GERD (gastroesophageal reflux disease) Former smoker Pulmonary embolism Hypertension Migraines Anxiety and depression Hx of gastroesophageal reflux (GERD) Fibromyalgia Diabetes mellitus Myasthenia gravis Hx pulmonary embolism Home Medications ???Medication ???Instructions ???Recorded ???Last Taken ???Type montelukast 10 mg tablet 10 mg PO DAILY ALLERGIES 05/04/19 01/04/25 History sertraline 100 mg tablet 100 mg PO DAILY DEPRESSION 9 01/07/25 History albuterol sulfate 90 mcg/actuation 2 puff inhalation Q4H PRN 01/06/25 History aerosol inhaler shortness of breath or wheezing budesonide-formotero l HFA 80 2 puff inhalation BID DYSPNEA 09/2301/07/25 History mcg-4.5 mcg/actuation aerosol inhaler estradiol 0.5 mg tablet 0.5 mg PO DAILY POSTMENOPAUSAL 01/06/25 History pyridostigmine bromide 60 mg tablet 60 mg PO Q8H FOR MUSCLE STRENGT H 10/22/23 01/07/25 History sumatriptan succinate 100 mg tablet 100 mg PO PRN MIGRAINE 10/22/23 Unknown History cholecalciferol (vitamin D3) 25 2,000 unit PO DAILY supplement 09/1401/04/25 History mcg (1,000 unit) capsule (Vitamin D3) amlodipine 10 mg tablet 10 mg PO DAILY HTN #0 tabs 4 12/30/24 Rx acetaminophen 325 mg tablet 650 mg PO Q6H PRN pain 01/08/25 Un known History cromolyn 4 % eye drops 2 drp ophthalmic (eye) Q6H PRN 12/24/24 History VERNAL CONJUNCTIVITIS fluticasone propionate 50 1 spray intranasal Q12H ALLERGY 01/07/25 History mcg/actuation nasal SYMPTOM spray,suspension hydrocodone-acetamin ophen 5-325mg 1 tab PO Q6H PRN Pain 5-10 Or 01/07/25 History 5mg-325mg Fever > 100.7 F lidocaine 4 % topical patch 1 patch topical DAILY PRN pain Unknown History (Aspercreme (lidocaine)) loperamide 2 mg capsule 2 mg PO Q4H PRN DIARRHEA 01/08/25 01/06/25 History loratadine 10 mg tablet 10 mg PO DAILY ALLERGIES 01/08/25 01/04/25 History (Allerclear) melatonin 3 mg tablet 3 mg PO PRN Insomnia 01/08/25 Unkn own History naphazoline-glycerin 0.03 %-0.5 % 2 drp ophthalmic (eye) Q4H PRN Unknown History eye drops (Clear Eyes Cooling ITCHY EYES Comfort) naproxen sodium 220 mg capsule 220 mg PO BID PRN pain 01/08/25 History (Aleve) ondansetron HCl 4 mg tablet 4 mg PO Q6H PRN nausea and vomitin g 01/08/25 01/07/25 History pantoprazole 40 mg tablet,delayed 40 mg PO DAILY GASTRITIS 01/08/25 Unknown History release (Protonix) simethicone 125 mg tablet 125 mg PO Q8H PRN abdominal 12/25/24 History (Bicarsim Forte) distention vit A 300 mcg-C 200 mg-E 27 1 tab PO DAILY VERNAL 01/08/25 History mg-lutein 2 mg and minerals tablet CONJUNCTIVITIS (I-Hernan) Allergy/AdvReac Type Severity Reaction Status Date / Time Beta-Blockers Allergy Severe Other Verified 10/22/23 12:02 (Beta-Adrenergic Bloc Horse/Equine Containing AdvReac NEEDS Verified 10/22/23 12:00 Products FOLLOW-UP Sugars, Metabolically Active AdvReac Unknown Verified 10/22/23 12:00 Family History Other Lupus (systemic lupus erythematosus) Scleroderma Surgical History Hx of thymectomy Social History Smoking Status: Former smoker ROS ROS ED ROS Narrative see HPI EXAM Physical Exam Narrative Exam Narrative: Vital signs: Reviewed General: Alert and orientedx3. No acute distress. Chronically ill appearing. Pale. HEENT: Head is no (more content not included)... Normal [facility] Eosinophil percentageOrdered By: Xuan Mcdaniels on 01-08-2025 Eosinophils/100 WBC (Bld) 0.8 % 0-5 [facility] Erythrocyte distribution wid th ratioOrdered By: Xuan Mcdaniels on 01-08-2025 Erythrocyte distribution width (RBC) [Ratio] 12.3 % 11.6-14.6 [facility] Erythrocyte distribution wid th ratioOrdered By: Ishaan Bernabe on 01-08-2025 Erythrocyte distribution width (RBC) [Ratio] 12.1 % 11.6-14.6 [facility] Erythrocyte distribution wid th standard deviationOrdered By: Xuan Mcdaniels on 01-08-2025 Erythrocyte distribution width (RBC) [Ratio] 42.6 fl 35.1-43.9 [facility] Erythrocyte distribution wid th standard deviationOrdered By: Ishaan Bernabe on 01-08-2025 Erythrocyte distribution width (RBC) [Ratio] 42.7 fl 35.1-43.9 [facility] Glomerular filtration rate ( GFR) estimation/1.73 sq m using serum, plasma, or whole bOrdered By: Xuan Mcdaniels on 01-08-2025 GFR/1.73 sq M.predicted among non-blacks MDRD (S/P/Bld) [Vol rate/Area] 92 mL/min/{1.73_m2} >60 [facility] Comment on above: mL/min/1.73m2 CKD-EP I Creatinine Equation (2020) Glomerular filtration rate ( GFR) estimation/1.73 sq m using serum, plasma, or whole bOrdered By: Ishaan Bernabe on 01-08-2025 GFR/1.73 sq M.predicted among non-blacks MDRD (S/P/Bld) [Vol rate/Area] 92 mL/min/{1.73_m2} >60 [facility] Comment on above: mL/min/1.73m2 CKD-EP I Creatinine Equation (2020) H AND P Exam - [facility] 01-08-2025 H&P Exam - Hospitalist [facility] Medical Records Department [address] [place] [address] H P Exam - Hospitalist 01/08/25 1151 MR#: [id number] Acct: [id number] Name: SADE RUSH Rep #: [id number] : 1945 79 From: Katy De La Rosa MD PCP: Dr. Ishaan Bernabe MD Status:ADM IN Location: ICU [id number] HPI - General General Date of Admission: 01/08/25 Date of Service: 01/08/25 Chief Complaint: abnormal labs HPI Narrative SADE RUSH, is a 79 F with a PMH as outlined who presents with a complaint of black, tarry stools. Her Hb was down to 5.6. She has a history of myasthenia gravis and repeated GI bleeds in the past, requiring blood transfusion. She says she last had a colonoscopy and EGD in 2000 in [place], but has refused any since. She denied any abdominal pain, fever or chills, any coffee- ground emesis or any bright red bleeding per rectum. She denies any weight loss. Review of systems otherwise negative. Vitals in the ED were temp of 98.3F, CO of 100, BP of 120/80, RR of 18, and she was saturating at 94% on room air. CBC showed hemoglobin of 5.6 with a WBC of 11.6 and platelets of 350. INR is 1.1. Chemistry shows sodium of 142 potassium of 4.2 and bicarb of 23.6. Creatinine was 0.61. CT abdomen and pelvis was ordered by the ED doctor. Patient refused. When I reviewed patient's I spoke to her extensively about this and informed her that if there was any active GI bleeding source that could be taken care of by interventional radiology, the CT a abdomen and pelvis would help detect this. Patient was initially with lactate and said she would not do it because she felt it was just adding to her medical course. I explained to her that she did have insurance so this could cover it. However she wanted to know exactly how much it would cost. I explained to her that I did not have the information about exactly how much the CT would cause but I felt it was medically necessary under the circumstances. Patient then reluctantly agreed and I did speak to the ED doctor about ordering this. However patient subsequently declined this. She has been admitted to the ICU to be managed for acute on chronic anemia due to GI bleed. She was transfused with 1 unit of packed red blood cells in the ED. [facility] Medical History Anxiety Depression Chronic pain Osteoarthritis GERD (gastroesophageal reflux disease) Former smoker Pulmonary embolism Hypertension Migraines Anxiety and depression Hx of gastroesophageal reflux (GERD) Fibromyalgia Diabetes mellitus Myasthenia gravis Hx pulmonary embolism Home Medications ???Medication ???Instructions ???Recorded ???Last Taken ???Type montelukast 10 mg tablet 10 mg PO DAILY ALLERGIES 05/04/19 01/04/25 History sertraline 100 mg tablet 100 mg PO DAILY DEPRESSION 9 01/07/25 History albuterol sulfate 90 mcg/actuation 2 puff inhalation Q4H PRN 01/06/25 History aerosol inhaler shortness of breath or wheezing budesonide-formotero l HFA 80 2 puff inhalation BID DYSPNEA 09/2301/07/25 History mcg-4.5 mcg/actuation aerosol inhaler estradiol 0.5 mg tablet 0.5 mg PO DAILY POSTMENOPAUSAL 01/06/25 History pyridostigmine bromide 60 mg tablet 60 mg PO Q8H FOR MUSCLE STRENGT H 10/22/23 01/07/25 History sumatriptan succinate 100 mg tablet 100 mg PO PRN MIGRAINE 10/22/23 Unknown History cholecalciferol (vitamin D3) 25 2,000 unit PO DAILY supplement 09/1401/04/25 History mcg (1,000 unit) capsule (Vitamin D3) amlodipine 10 mg tablet 10 mg PO DAILY HTN #0 tabs 4 12/30/24 Rx acetaminophen 325 mg tablet 650 mg PO Q6H PRN pain 01/08/25 Un known History cromolyn 4 % eye drops 2 drp ophthalmic (eye) Q6H PRN 12/24/24 History VERNAL CONJUNCTIVITIS fluticasone propionate 50 1 spray intranasal Q12H ALLERGY 01/07/25 History mcg/actuation nasal SYMPTOM spray,suspension hydrocodone-acetamin ophen 5-325mg 1 tab PO Q6H PRN Pain 5-10 Or 01/07/25 History 5mg-325mg Fever > 100.7 F lidocaine 4 % topical patch 1 patch topical DAILY PRN pain Unknown History (Aspercreme (lidocaine)) loperamide 2 mg capsule 2 mg PO Q4H PRN DIARRHEA 01/08/25 01/06/25 History loratadine 10 mg tablet 10 mg PO DAILY ALLERGIES 01/08/25 01/04/25 History (Allerclear) melatonin 3 mg tablet 3 mg PO PRN Insomnia 01/08/25 Unkn own History naphazoline-glycerin 0.03 %-0.5 % 2 drp ophthalmic (eye) Q4H PRN Unknown History eye drops (Clear Eyes Cooling ITCHY EYES Comfort) naproxen sodium 220 mg capsule 220 mg PO BID PRN pain 01/08/25 History (Aleve) ondansetron HCl 4 mg tablet 4 mg PO Q6H PRN nausea and vomitin g 01/08/25 01/07/25 History pantoprazole 40 mg tablet,delayed 40 mg PO DAILY (more content not included)... Normal [facility] Hematocrit Auto (Bld) [Volum e fraction]Ordered By: Xuan Mcdaniels on 01-08-2025 Hematocrit (Bld) [Volume fraction] 17.4 % Low 37-47 [facility] Hematocrit Auto (Bld) [Volum e fraction]Ordered By: Ishaan Bernabe on 01-08-2025 Hematocrit (Bld) [Volume fraction] 17.2 % Low 37-47 [facility] Hemoglobin measurementOrdere d By: Xuan Mcdaniels on 01-08-2025 Hemoglobin (Bld) [Mass/Vol] 5.6 g/dL Low 12.0-15.0 [facility] Comment on above: CRITICAL VALUE POE D GEO WILKINS01/08/25 1028 Fabby Crowe.RESULTS READ BACK BY NORA. Hemoglobin measurementOrdere d By: Ishaan Bernabe on 01-08-2025 Hemoglobin (Bld) [Mass/Vol] 5.4 g/dL Low 12.0-15.0 [facility] Comment on above: CRITICAL VALUE POE Judith TO Hedy. FLACK01/08/25 0848 Fabby Crowe.RESULTS READ BACK BY SAME. Immature granulocytes/100 WB C Auto (Bld)Ordered By: Xuan Mcdaniels on 01-08-2025 Immature granulocytes/100 WBC (Bld) 0.500 % 0.0-0.9 [facility] Comment on above: IG% - Immature Granu locytes (promyelocytes, myelocytes and metamyelocytes) > 1% indicates that a LEFT SHIFT is Present. International normalized rat io (INR) calculationOrdered By: Xuan Mcdaniels on 01-08-2025 INR Coag (Bld) [Relative time] 1.1 {INR} [facility] Laboratory - Chemistry and C hemistry - challengeOrdered By: Xuan Mcdaniels on 01-08-2025 AST [Catalytic activity/Vol] 20 U/L <32 [facility] Laboratory - Chemistry and C hemistry - challengeOrdered By: Ishaan Bernabe on 01-08-2025 AST [Catalytic activity/Vol] 19 U/L <32 [facility] Lipaseon 01-08-2025 Lipase [Catalytic activity/Vol] 28 U/L Normal 13-75 [facility] Comment on above: Result Comment: Renan goff note: LIPASE revised reference range effective 22. New Lipase methodology. Expected to produce lower values than the previous assay method. NEW Reference Range: 13 - 75 U/L Performed By: #### L 500.4050, L501.2450, L100.0100 #### [facility] Laboratory [address] [facility] [place], [address] Lipase measurementOrdered By : Xuan Mcdaniels on 01-08-2025 Lipase [Catalytic activity/Vol] 28 U/L 13-75 [facility] Comment on above: Please note:LIPASE r evised reference range effective 22. New Lipase methodology. Expected to produce lower values than the previous assay method. NEW Reference Range: 13 - 75 U/L MCV (mean corpuscular volume ) determinationOrdered By: Xuan Mcdaniels on 01-08-2025 MCV (RBC) [Entitic vol] 98.3 fL 81-99 [facility] MCV (mean corpuscular volume ) determinationOrdered By: Ishaan Bernabe on 01-08-2025 MCV (RBC) [Entitic vol] 99.4 fL High 81-99 [facility] MR/CON.PCM.GIon 01-08-2025 MR/CON.PCM.GI [facility] Medical Records Department [address] [facility] [facility] [place] [address] Consultation - GI 01/08/25 1737 MR#: [id number] Acct: [id number] Name: SADE RUSH Rep #: [id number] : 1945 79 From: Brennen Friend DO PCP: Dr. Ishaan Bernabe MD Status:ADM IN Location: ICU [id number] HPI Consult Data Date of Consult: 01/08/25 HPI Narrative Reason for Consultation: GI bleed HPI Narrative: SADE RUSH, is a 79-year-old woman with myasthenia gravis who presents with a complaint of black, tarry stools. Her Hb was down to 5.6. She has a history of myasthenia gravis and repeated GI bleeds in the past, requiring blood transfusion. She says she last had a colonoscopy and EGD in 2000 in [place], but has refused any since. Vitals in the ED were temp of 98.3F, CO of 100, BP of 120/80, RR of 18, and she was saturating at 94% on room air. CBC showed hemoglobin of 5.6 with a WBC of 11.6 and platelets of 350. INR is 1.1. Chemistry shows sodium of 142 potassium of 4.2 and bicarb of 23.6. Creatinine was 0.61. CT abdomen and pelvis was ordered by the ED doctor. Patient refused. When I reviewed patient's I spoke to her extensively about this and informed her that if there was any active GI bleeding source that could be taken care of by interventional radiology, the CT a abdomen and pelvis would help detect this. Patient was initially with lactate and said she would not do it because she felt it was just adding to her medical course. I explained to her that she did have insurance so this could cover it. However she wanted to know exactly how much it would cost. I explained to her that I did not have the information about exactly how much the CT would cause but I felt it was medically necessary under the circumstances. Patient then reluctantly agreed and I did speak to the ED doctor about ordering this. However patient subsequently declined this. She has been admitted to the ICU to be managed for acute on chronic anemia due to GI bleed. She was transfused with 1 unit of packed red blood cells in the ED. FOR[facility]LY [facility], LATER [facility] Medical History Anxiety Depression Chronic pain Osteoarthritis GERD (gastroesophageal reflux disease) Former smoker Pulmonary embolism Hypertension Migraines Anxiety and depression Hx of gastroesophageal reflux (GERD) Fibromyalgia Diabetes mellitus Myasthenia gravis Hx pulmonary embolism Home Medications ???Medication ???Instructions ???Recorded ???Last Taken ???Type montelukast 10 mg tablet 10 mg PO DAILY ALLERGIES 05/04/19 01/04/25 History sertraline 100 mg tablet 100 mg PO DAILY DEPRESSION 9 01/07/25 History albuterol sulfate 90 mcg/actuation 2 puff inhalation Q4H PRN 01/06/25 History aerosol inhaler shortness of breath or wheezing budesonide-formotero l HFA 80 2 puff inhalation BID DYSPNEA 09/2301/07/25 History mcg-4.5 mcg/actuation aerosol inhaler estradiol 0.5 mg tablet 0.5 mg PO DAILY POSTMENOPAUSAL 01/06/25 History pyridostigmine bromide 60 mg tablet 60 mg PO Q8H FOR MUSCLE STRENGT H 10/22/23 01/07/25 History sumatriptan succinate 100 mg tablet 100 mg PO PRN MIGRAINE 10/22/23 Unknown History cholecalciferol (vitamin D3) 25 2,000 unit PO DAILY supplement 09/1401/04/25 History mcg (1,000 unit) capsule (Vitamin D3) amlodipine 10 mg tablet 10 mg PO DAILY HTN #0 tabs 4 12/30/24 Rx acetaminophen 325 mg tablet 650 mg PO Q6H PRN pain 01/08/25 Un known History cromolyn 4 % eye drops 2 drp ophthalmic (eye) Q6H PRN 12/24/24 History VERNAL CONJUNCTIVITIS fluticasone propionate 50 1 spray intranasal Q12H ALLERGY 01/07/25 History mcg/actuation nasal SYMPTOM spray,suspension hydrocodone-acetamin ophen 5-325mg 1 tab PO Q6H PRN Pain 5-10 Or 01/07/25 History 5mg-325mg Fever > 100.7 F lidocaine 4 % topical patch 1 patch topical DAILY PRN pain Unknown History (Aspercreme (lidocaine)) loperamide 2 mg capsule 2 mg PO Q4H PRN DIARRHEA 01/08/25 01/06/25 History loratadine 10 mg tablet 10 mg PO DAILY ALLERGIES 01/08/25 01/04/25 History (Allerclear) melatonin 3 mg tablet 3 mg PO PRN Insomnia 01/08/25 Unkn own History naphazoline-glycerin 0.03 %-0.5 % 2 drp ophthalmic (eye) Q4H PRN Unknown History eye drops (Clear Eyes Cooling ITCHY EYES Comfort) naproxen sodium 220 mg capsule 220 mg PO BID PRN pain 01/08/25 History (Aleve) ondansetron HCl 4 mg tablet 4 mg PO Q6H PRN nausea and vomitin g 01/08/25 01/07/25 History pantoprazole 40 mg tablet,delayed 40 mg PO DAILY GASTRITIS 01/08/25 Unknown History release (Protonix) simethicone 125 mg tablet 125 mg PO Q8H PRN abdominal 12/25/24 History (Bicarsim Forte) distention vit A 3 (more content not included)... Normal [facility] MR/OP.PROVATon 01-08-2025 MR/OP.[facility] Medical Records Department [address] [place] [address] Provation Physician Letter MR#: [id number] Acct: [id number] Name: SADE RUSH Jocelyn Rep #: [id number] : 1945 79 From: Brennen Friend DO PCP: Dr. Ishaan Bernabe MD Status:ADM IN 01/08/2025 Ishaan Bernabe [address] [place] [address] Re : Upper GI endoscopy procedure for Sade Rush Dear Dr. Bernabe This procedure was performed on Wednesday, January 08, 2025. My impressions and recommendations are as follows: Impressions : - Normal esophagus. - No gross lesions in the entire stomach. 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 Treated with a heater probe. Clip was placed. Clip clinical supervisor: Somo. - No specimens collected. Recommendations : - Return patient to ICU for ongoing care. - Full liquid diet today. - Continue present medications. - PPI drip for 24 hours - Carafate 3 times a day My findings are described in the full procedure note, which is enclosed. If I can be of further assistance, please feel free to contact me at . Sincerely, Brennen Foy DO 01/08/2025 6:58:42 PM This report has been signed electronically. 01/08/251857 Date Brennen Foy DO Cosigner Signature: Date (if indicated) CC: Dr. Cortez Ramos MD; Dr. Eric López MD; Dr. Adan Rosa MD; Dr. Jesus Clemens MD; Dr. Nicholas Graham DO; Dr. Bishop Wheeler MD; Dr. Aidan Arteaga MD; Dr. Sina Duarte MD; Dr. Ishaan Bernabe MD; Dr. Fidel Benoit MD; Dr. Zeb Dubose MD; Dr. Linnea Valentino MD; Dr. Sinai Gurrola MD; Dr. Eliza Ha MD; Dr. Katy De La Rosa MD; Dr. Red Lyles MD; Dr. Joseph Taylor MD; Dr. Marquise Montano MD; Dr. Ghada Meyers MD; Dr. Nayla Mays MD; Dr. Christiano Palmer DO; Dr. Joseph Montiel DO; Dr. Moses Turner MD; Dr. Mynor Fields MD; Dr. Lashawn Pierce MD Date Dictated: 01/08/251832 Date Transcribed: Sharemilker: RF Signed [facility] MR/POSTOP.ANEon 01-08-2025 MR/POSTOP.[facility] Medical Records Department [address] [place] [address] Anesthesia Postop Eval I 01/08/251904 MR#: [id number] Acct: [id number] Name: REENASADE Jocelyn Rep #: [id number] : 1945 79 From: Johnny Lentz MD PCP: Dr. Ishaan Bernabe MD Status:ADM IN Y Race: C Location: ICU [place] [address] Anesthesia: Postop Eval I Current Vital Signs Temperature: 99.4 F Pulse Rate: 105 Blood Pressure: 92/59 Respiratory Rate: 16 Pulse Ox: 97 Oxygen Delivery Method: Room Air Assessment Airway patent: Yes Spontaneous unlabored respirations: Yes Mental status: Awake and Calm nausea: No Vomiting: No Anesthesia Complication: No Fluid Hydration Crystalloid volume administer (ml): 300 Total IV fluid infused: 300 Progress Note Anesthesia document: Postop Eval 1 completed: Yes 01/08/251906 Date Johnny Lentz MD Cosigner Signature: Date CC: Signed [facility] MR/[id number] 01-08-2025 [facility] Medical Records Department [address] [place] [address] Anesthesia Postop Eval II 01/08/252101 MR#: [id number] Acct: [id number] Name: SADE RUSH Rep #: [id number] : 1945 79 From: Johnny Lentz MD PCP: Dr. Ishaan Bernabe MD Status:ADM IN Y Race: C Location: ICU [id number] Anesthesia Postop Eval I Sum Postop Eval Completion status Anesthesia document: Postop Eval 1 completed: Yes Anesthesia Postop Eval I Summary Anesthesia Postop Eval I Summary: Anesthesia Postop Eval I: Assessment Summary Airway patent Yes 01/08/25 19:07 Spontaneous unlabored Yes 01/08/25 19:07 respirations Mental status Awake,Calm 01/08/25 19:07 nausea No 01/08/25 19:07 Vomiting No 01/08/25 19:07 Anesthesia Postop Eval I: Fluid Summary Crystalloid volume administer 300 01/08/25 19:07 (ml) Colloids volume administered ( ml) Blood Product volume administered (ml) Total IV fluid infused 300 01/08/25 19:07 Anesthesia Postop Eval I: Summary Notes Anesthesia Complication No 01/08/25 19:07 Anesthesia Complication Comment: Post-operative progress note Anesthesia: Postop Eval II Evaluation Mental status: Awake and Calm Pain Level: 0 nausea: No Vomiting: No Complications Anesthesia Complication: No 01/08/252102 Date Johnny Lentz MD Cosigner Signature: Date CC: Signed Normal [facility] Mean corpuscular hemoglobin (MCH) determinationOrdered By: Xuan Mcdaniels on 01-08-2025 MCH (RBC) [Entitic mass] 31.6 pg 27.0-32.0 [facility] Mean corpuscular hemoglobin (MCH) determinationOrdered By: Ishaan Bernabe on 01-08-2025 MCH (RBC) [Entitic mass] 31.2 pg 27.0-32.0 [facility] Mean corpuscular hemoglobin concentration (MCHC) determinationOrdered By: Xuan Mcdaniels on 01-08-2025 MCHC (RBC) [Mass/Vol] 32.2 g/dL 32-36 [facility] Mean corpuscular hemoglobin concentration (MCHC) determinationOrdered By: Ishaan Bernabe on 01-08-2025 MCHC (RBC) [Mass/Vol] 31.4 g/dL Low 32-36 [facility] Mean platelet volume determi nationOrdered By: Xuan Mcdaniels on 01-08-2025 Platelet mean volume (Bld) [Entitic vol] 11.0 fL 6.2-12.0 [facility] Mean platelet volume determi nationOrdered By: Ishaan Bernabe on 01-08-2025 Platelet mean volume (Bld) [Entitic vol] 11.4 fL 6.2-12.0 [facility] Monocyte percentageOrdered B y: Xuan Mcdaniels on 01-08-2025 Monocytes/100 WBC (Bld) 6.3 % 0-10 [facility] Neutrophil percentageOrdered By: Xuan Mcdaniels on 01-08-2025 Neutrophils/100 WBC (Bld) 72.0 % High 47-70 [facility] Nucleated red blood cell per centageOrdered By: Xuan Mcdaniels on 01-08-2025 Nucleated RBC/100 WBC (Bld) [Ratio] 0 % 0-5 [facility] Partial Thromboplast Timeon 01-08-2025 aPTT Coag (Bld) [Time] 24.3 s Normal 24.1-36.2 [facility] Comment on above: Performed By: #### M 100.7900, BRC, L300.4310, BTS, L300.3900 #### [facility] [address] [place], [place], [id number] Platelet countOrdered By: Jaqui Mcdaniels on 01-08-2025 Platelets (Bld) [#/Vol] 350 10*3/uL 150-450 [facility] Platelet countOrdered By: Mary Bernabe on 01-08-2025 Platelets (Bld) [#/Vol] 362 10*3/uL 150-450 [facility] Potassium measurement (mass/ volume)Ordered By: Xuan Mcdaniels on 01-08-2025 Potassium (Unsp spec) [Mass/Vol] 4.2 mmol/L 3.3-5.1 [facility] Potassium measurement (mass/ volume)Ordered By: Ishaan Bernabe on 01-08-2025 Potassium (Unsp spec) [Mass/Vol] 4.0 mmol/L 3.3-5.1 [facility] Prothrombin Time w/INRon INR Coag (PPP) [Relative time] 1.1 {INR} Normal [facility] Comment on above: Performed By: #### M 100.7900, BR, L300.4310, BTS, L300.3900 #### [facility] [address] [place], [address] PT Coag (PPP) [Time] 14.4 s Normal 11.7-14.9 [facility] Comment on above: Performed By: #### M 100.7900, [facility], L300.4310, BTS, L300.3900 #### [facility] [address] [place], [address] Prothrombin timeOrdered By: Xuan Mcdaniels on 01-08-2025 PT Coag (PPP) [Time] 14.4 s 11.7-14.9 [facility] RBC Auto (Bld) [#/Vol]Ordere d By: Xuan Mcdaniels on 01-08-2025 RBC (Bld) [#/Vol] 1.77 10*6/uL Low 4.2-5.4 [facility] RBC Auto (Bld) [#/Vol]Ordere d By: Ishaan Bernabe on 01-08-2025 RBC (Bld) [#/Vol] 1.73 10*6/uL Low 4.2-5.4 [facility] Serum creatinine measurement (mass/volume)Ordered By: Xuan Mcdaniels on 01-08-2025 Creatinine [Mass/Vol] 0.61 mg/dL Low 0.70-1.20 [facility] Serum creatinine measurement (mass/volume)Ordered By: Ishaan Bernabe on 01-08-2025 Creatinine [Mass/Vol] 0.60 mg/dL Low 0.70-1.20 [facility] Serum globulin measurementOr dered By: Xuan Mcdaniels on 01-08-2025 Globulin (S) [Mass/Vol] 2.1 g/dL Low 2.2-4.2 [facility] Serum globulin measurementOr dered By: Ishaan Bernabe on 01-08-2025 Globulin (S) [Mass/Vol] 2.0 g/dL Low 2.2-4.2 [facility] Serum glucose measurement (m ass/volume)Ordered By: Xuan Mcdaniels on 01-08-2025 Glucose [Mass/Vol] 121 mg/dL High 70-99 [facility] Serum glucose measurement (m ass/volume)Ordered By: Ishaan Bernabe on 01-08-2025 Glucose [Mass/Vol] 121 mg/dL High 70-99 [facility] Serum or plasma alanine coley otransferase (ALT) measurementOrdered By: Xuan Mcdaniels on 01-08-2025 ALT [Catalytic activity/Vol] 21 U/L <35 [facility] Serum or plasma alanine coley otransferase (ALT) measurementOrdered By: Ishaan Bernabe on 01-08-2025 ALT [Catalytic activity/Vol] 17 U/L <35 [facility] Serum or plasma albumin kayleen urement (mass/volume)Ordered By: Xuan Mcdaniels on 01-08-2025 Albumin [Mass/Vol] 3.4 g/dL 3.4-4.8 [facility] Serum or plasma albumin kayleen urement (mass/volume)Ordered By: Ishaan Bernabe on 01-08-2025 Albumin [Mass/Vol] 3.2 g/dL Low 3.4-4.8 [facility] Serum or plasma albumin/glob ulin mass ratioOrdered By: Xuan Mcdaniels on 01-08-2025 Albumin/Globulin [Mass ratio] 1.6 {ratio} 0.9-2.4 [facility] Serum or plasma albumin/glob ulin mass ratioOrdered By: Ishaan Bernabe on 01-08-2025 Albumin/Globulin [Mass ratio] 1.6 {ratio} 0.9-2.4 [facility] Serum or plasma alkaline chong sphatase measurementOrdered By: Xuan Mcdaniels on 01-08-2025 ALP [Catalytic activity/Vol] 63 U/L 35- [facility] Serum or plasma alkaline chong sphatase measurementOrdered By: Ishaan Bernbae on 01-08-2025 ALP [Catalytic activity/Vol] 60 U/L 35-104 [facility] Serum or plasma calcium kayleen urement (mass/volume)Ordered By: Xuan Mcdaniels on 01-08-2025 Calcium [Mass/Vol] 9.0 mg/dL 7.6-11.0 [facility] Serum or plasma calcium kayleen urement (mass/volume)Ordered By: Ishaan Bernabe on 01-08-2025 Calcium [Mass/Vol] 8.8 mg/dL 7.6-11.0 [facility] Serum or plasma urea nitroge n measurement (mass/volume)Ordered By: Xuan Mcdaniels on 01-08-2025 Urea nitrogen [Mass/Vol] 32 mg/dL High - [facility] Serum or plasma urea nitroge n measurement (mass/volume)Ordered By: Ishaan Bernabe on 01-08-2025 Urea nitrogen [Mass/Vol] 33 mg/dL High 09-09 [facility] Sodium levelOrdered By: Wali Mcdaniels on 01-08-2025 Sodium [Moles/Vol] 140 mmol/L 133-145 [facility] Sodium levelOrdered By: Ishaan Bernabe on 01-08-2025 Sodium [Moles/Vol] 138 mmol/L 133-145 [facility] Stool Occult Blood iFOBon STOB Positive Normal [facility] Comment on above: Performed By: #### M 100.8600, BRC, L300.4310, BTS, L300.3900 #### [facility] [address] [place] [address], [address] Stool gastrointestinal hemog lobin detection by immunologic methodOrdered By: Xuan Mcdaniels on 01-08-2025 Lower GI hemoglobin IA Ql (Stl) Positive Abnormal [facility] Total proteinOrdered By: Jessie Mcdaniels on 01-08-2025 Protein [Mass/Vol] 5.4 g/dL Low 5.9-8.4 [facility] Total proteinOrdered By: Micah Bernabe on 01-08-2025 Protein [Mass/Vol] 5.2 g/dL Low 5.9-8.4 [facility] Type AND Screenon 01-08-2025 Ab SCREEN GEL Negative Normal [facility] Comment on above: Order Comment: CMV N EG? N Number of units to transfuse: 1 Reason for Ordering Blood: Acute Are the blood/blood products to be transfused? Y Is the patient having/had surgery? N When Ready N Y Performed By: #### M 100.7900, [facility], L300.4310, BTS, L300.3900 #### [facility] [address] [place], [address] White blood cell (WBC) count Ordered By: Xuan Mcdaniels on 01-08-2025 WBC (Bld) [#/Vol] 11.6 10*3/uL High 4.4-11.0 [facility] White blood cell (WBC) count Ordered By: Ishaan Bernabe on 01-08-2025 WBC (Bld) [#/Vol] 11.2 10*3/uL High 4.4-11.0 [facility] Anion gap in Serum or Plasma Ordered By: Ishaan Bernabe on 11-15-2024 Anion gap [Moles/Vol] 10 mmol/L 5-15 [facility] BUN/creatinine ratioOrdered By: Ishaan Bernabe on 11-15-2024 Urea nitrogen/Creatinine [Mass ratio] 30.5 mg/mg High 10-20 [facility] Basic Metabolic Profile (BMP )on 11-15-2024 BUN/CRE 30.5 RATIO High - [facility] Comment on above: Order Comment: CMV N EG? N Number of units to transfuse: 1 Reason for Ordering Blood: Acute Are the blood/blood products to be transfused? Y Is the patient having/had surgery? N When Ready N Y Performed By: #### M 100.7900, [facility], L300.4310, BTS, L300.3900 #### [facility] [address] [place], [address] Calcium [Mass/Vol] 9.3 mg/dL Normal 7.6-11.0 [facility] Comment on above: Order Comment: CMV N EG? N Number of units to transfuse: 1 Reason for Ordering Blood: Acute Are the blood/blood products to be transfused? Y Is the patient having/had surgery? N When Ready N Y Performed By: #### M 100.7900, BR[facility], L300.4310, BTS, L300.3900 #### [facility] [address] [place], [address] Chloride [Moles/Vol] 108 mmol/L Normal 98-108 [facility] Comment on above: Order Comment: CMV N EG? N Number of units to transfuse: 1 Reason for Ordering Blood: Acute Are the blood/blood products to be transfused? Y Is the patient having/had surgery? N When Ready N Y Performed By: #### M 100.7900, BRC, L300.4310, BTS, L300.3900 #### [facility] [address] [place], [address] CO2 [Moles/Vol] 23.1 mmol/L Normal 21.0-32.0 [facility] Comment on above: Order Comment: CMV N EG? N Number of units to transfuse: 1 Reason for Ordering Blood: Acute Are the blood/blood products to be transfused? Y Is the patient having/had surgery? N When Ready N Y Performed By: #### M 100.7900, BRC, L300.4310, BTS, L300.3900 #### [facility] [address] [place], [address] Creatinine [Mass/Vol] 0.75 mg/dL Normal 0.70-1.20 [facility] Comment on above: Order Comment: CMV N EG? N Number of units to transfuse: 1 Reason for Ordering Blood: Acute Are the blood/blood products to be transfused? Y Is the patient having/had surgery? N When Ready N Y Performed By: #### M 100.7900, BRC, L300.4310, BTS, L300.3900 #### [facility] [address] [place], [address] GAP 10 Normal 5-15 [facility] Comment on above: Order Comment: CMV N EG? N Number of units to transfuse: 1 Reason for Ordering Blood: Acute Are the blood/blood products to be transfused? Y Is the patient having/had surgery? N When Ready N Y Performed By: #### M 100.7900, BRC, L300.4310, BTS, L300.3900 #### [facility] [address] [place], [address] GFR/1.73 sq M.predicted among non-blacks MDRD (S/P/Bld) [Vol rate/Area] 82 mL/min/{1.73_m2} Normal >60 [facility] Comment on above: Order Comment: CMV N EG? N Number of units to transfuse: 1 Reason for Ordering Blood: Acute Are the blood/blood products to be transfused? Y Is the patient having/had surgery? N When Ready N Y Result Comment: mL/m in/1.73m2 CKD-EPI Creatinine Equation (2020) Performed By: #### M 100.7900, BRC, L300.4310, BTS, L300.3900 #### [facility] [address] [place], [address] Glucose [Mass/Vol] 153 mg/dL High 70-99 [facility] Comment on above: Order Comment: CMV N EG? N Number of units to transfuse: 1 Reason for Ordering Blood: Acute Are the blood/blood products to be transfused? Y Is the patient having/had surgery? N When Ready N Y Performed By: #### M 100.7900, BRC, L300.4310, BTS, L300.3900 #### [facility] [address] [place], [address] Potassium [Moles/Vol] 4.6 mmol/L Normal 3.3-5.1 [facility] Comment on above: Order Comment: CMV N EG? N Number of units to transfuse: 1 Reason for Ordering Blood: Acute Are the blood/blood products to be transfused? Y Is the patient having/had surgery? N When Ready N Y Performed By: #### M 100.7900, BRC, L300.4310, BTS, L300.3900 #### [facility] [address] [place], [address] Sodium [Moles/Vol] 141 mmol/L Normal 133-145 [facility] Comment on above: Order Comment: CMV N EG? N Number of units to transfuse: 1 Reason for Ordering Blood: Acute Are the blood/blood products to be transfused? Y Is the patient having/had surgery? N When Ready N Y Performed By: #### M 100.7900, BRC, L300.4310, BTS, L300.3900 #### [facility] [address] [place], [address] Urea nitrogen [Mass/Vol] 23 mg/dL High 4-19 [facility] Comment on above: Order Comment: CMV N EG? N Number of units to transfuse: 1 Reason for Ordering Blood: Acute Are the blood/blood products to be transfused? Y Is the patient having/had surgery? N When Ready N Y Performed By: #### M 100.7900, BRC, L300.4310, BTS, L300.3900 #### [facility] [address] [place], [address] CBC-Complete Blood Cnt No Di ffon 11-15-2024 Erythrocyte distribution width (RBC) [Ratio] 12.4 % Normal 11.6-14.6 [facility] Comment on above: Order Comment: CMV N EG? N Number of units to transfuse: 1 Reason for Ordering Blood: Acute Are the blood/blood products to be transfused? Y Is the patient having/had surgery? N When Ready N Y Performed By: #### M 100.7900, BRC, L300.4310, BTS, L300.3900 #### [facility] [address] [place], [address] Hematocrit (Bld) [Volume fraction] 37.5 % Normal 37-47 [facility] Comment on above: Order Comment: CMV N EG? N Number of units to transfuse: 1 Reason for Ordering Blood: Acute Are the blood/blood products to be transfused? Y Is the patient having/had surgery? N When Ready N Y Performed By: #### M 100.7900, BRC, L300.4310, BTS, L300.3900 #### [facility] [address] [place], [address] Hemoglobin (Bld) [Mass/Vol] 12.3 g/dL Normal 12.0-15.0 [facility] Comment on above: Order Comment: CMV N EG? N Number of units to transfuse: 1 Reason for Ordering Blood: Acute Are the blood/blood products to be transfused? Y Is the patient having/had surgery? N When Ready N Y Performed By: #### M 100.7900, BRC, L300.4310, BTS, L300.3900 #### [facility] [address] [place], [address] MCH (RBC) [Entitic mass] 30.4 pg Normal 27.0-32.0 [facility] Comment on above: Order Comment: CMV N EG? N Number of units to transfuse: 1 Reason for Ordering Blood: Acute Are the blood/blood products to be transfused? Y Is the patient having/had surgery? N When Ready N Y Performed By: #### M 100.7900, BRC, L300.4310, BTS, L300.3900 #### [facility] [address] [place], [address] MCHC (RBC) [Mass/Vol] 32.8 g/dL Normal 32-36 [facility] Comment on above: Order Comment: CMV N EG? N Number of units to transfuse: 1 Reason for Ordering Blood: Acute Are the blood/blood products to be transfused? Y Is the patient having/had surgery? N When Ready N Y Performed By: #### M 100.7900, BRC, L300.4310, BTS, L300.3900 #### [facility] [address] [place], [address] MCV (RBC) [Entitic vol] 92.6 fL Normal 81-99 [facility] Comment on above: Order Comment: CMV N EG? N Number of units to transfuse: 1 Reason for Ordering Blood: Acute Are the blood/blood products to be transfused? Y Is the patient having/had surgery? N When Ready N Y Performed By: #### M 100.7900, BRC, L300.4310, BTS, L300.3900 #### [facility] [address] [place], [address] Platelet mean volume (Bld) [Entitic vol] 11.2 fL Normal 6.2-12.0 [facility] Comment on above: Order Comment: CMV N EG? N Number of units to transfuse: 1 Reason for Ordering Blood: Acute Are the blood/blood products to be transfused? Y Is the patient having/had surgery? N When Ready N Y Performed By: #### M 100.7900, BRC, L300.4310, BTS, L300.3900 #### [facility] [address] [place], [address] Platelets (Bld) [#/Vol] 318 10*3/uL Normal 150-450 [facility] Comment on above: Order Comment: CMV N EG? N Number of units to transfuse: 1 Reason for Ordering Blood: Acute Are the blood/blood products to be transfused? Y Is the patient having/had surgery? N When Ready N Y Performed By: #### M 100.7900, BRC, L300.4310, BTS, L300.3900 #### [facility] [address] [place], [address] RBC (Bld) [#/Vol] 4.05 10*6/uL Low 4.2-5.4 [facility] Comment on above: Order Comment: CMV N EG? N Number of units to transfuse: 1 Reason for Ordering Blood: Acute Are the blood/blood products to be transfused? Y Is the patient having/had surgery? N When Ready N Y Performed By: #### M 100.7900, BRC, L300.4310, BTS, L300.3900 #### [facility] [address] [place], [address] RDW SD 42.4 fl Normal 35.1-43.9 [facility] Comment on above: Order Comment: CMV N EG? N Number of units to transfuse: 1 Reason for Ordering Blood: Acute Are the blood/blood products to be transfused? Y Is the patient having/had surgery? N When Ready N Y Performed By: #### M 100.7900, BRC, L300.4310, BTS, L300.3900 #### [facility] [address] [place], [address] WBC (Bld) [#/Vol] 7.5 10*3/uL Normal 4.4-11.0 [facility] Comment on above: Order Comment: CMV N EG? N Number of units to transfuse: 1 Reason for Ordering Blood: Acute Are the blood/blood products to be transfused? Y Is the patient having/had surgery? N When Ready N Y Performed By: #### M 100.7900, BRC, L300.4310, BTS, L300.3900 #### [facility] [address] [place], [address] Carbon dioxide, total [Moles /volume] in Central venous bloodOrdered By: Ishaan Bernabe on 11-15-2024 CO2 [Moles/Vol] 23.1 mmol/L 21.0-32.0 [facility] Chloride assayOrdered By: Mary Bernabe on 11-15-2024 Chloride [Moles/Vol] 108 mmol/L 98-108 [facility] Erythrocyte distribution wid th ratioOrdered By: Ishaan Bernabe on 11-15-2024 Erythrocyte distribution width (RBC) [Ratio] 12.4 % 11.6-14.6 [facility] Erythrocyte distribution wid th standard deviationOrdered By: Ishaan Bernabe on 11-15-2024 Erythrocyte distribution width (RBC) [Ratio] 42.4 fl 35.1-43.9 [facility] Glomerular filtration rate ( GFR) estimation/1.73 sq m using serum, plasma, or whole bOrdered By: Ishaan Bernabe on 11-15-2024 GFR/1.73 sq M.predicted among non-blacks MDRD (S/P/Bld) [Vol rate/Area] 82 mL/min/{1.73_m2} >60 [facility] Comment on above: mL/min/1.73m2 CKD-EP I Creatinine Equation (2020) Hematocrit Auto (Bld) [Volum e fraction]Ordered By: Ishaan Bernabe on 11-15-2024 Hematocrit (Bld) [Volume fraction] 37.5 % 37-47 [facility] Hemoglobin measurementOrdere d By: Ishaan Bernabe on 11-15-2024 Hemoglobin (Bld) [Mass/Vol] 12.3 g/dL 12.0-15.0 [facility] MCV (mean corpuscular volume ) determinationOrdered By: Ishaan Bernabe on 11-15-2024 MCV (RBC) [Entitic vol] 92.6 fL 81-99 [facility] Mean corpuscular hemoglobin (MCH) determinationOrdered By: Ishaan Bernabe on 11-15-2024 MCH (RBC) [Entitic mass] 30.4 pg 27.0-32.0 [facility] Mean corpuscular hemoglobin concentration (MCHC) determinationOrdered By: Ishaan Bernabe on 11-15-2024 MCHC (RBC) [Mass/Vol] 32.8 g/dL 32-36 [facility] Mean platelet volume determi nationOrdered By: Ishaan Bernabe on 11-15-2024 Platelet mean volume (Bld) [Entitic vol] 11.2 fL 6.2-12.0 [facility] Platelet countOrdered By: Mary Bernabe on 11-15-2024 Platelets (Bld) [#/Vol] 318 10*3/uL 150-450 [facility] Potassium measurement (mass/ volume)Ordered By: Ishaan Bernabe on 11-15-2024 Potassium (Unsp spec) [Mass/Vol] 4.6 mmol/L 3.3-5.1 [facility] RBC Auto (Bld) [#/Vol]Ordere d By: Ishaan Bernabe on 11-15-2024 RBC (Bld) [#/Vol] 4.05 10*6/uL Low 4.2-5.4 [facility] Serum creatinine measurement (mass/volume)Ordered By: Ishaan Bernabe on 11-15-2024 Creatinine [Mass/Vol] 0.75 mg/dL 0.70-1.20 [facility] Serum glucose measurement (m ass/volume)Ordered By: Ishaan Bernabe on 11-15-2024 Glucose [Mass/Vol] 153 mg/dL High 70-99 [facility] Serum or plasma calcium kayleen urement (mass/volume)Ordered By: Ishaan Bernabe on 11-15-2024 Calcium [Mass/Vol] 9.3 mg/dL 7.6-11.0 [facility] Serum or plasma urea nitroge n measurement (mass/volume)Ordered By: Ishaan Bernabe on 11-15-2024 Urea nitrogen [Mass/Vol] 23 mg/dL High 4-19 [facility] Sodium levelOrdered By: Ishaan Bernabe on 11-15-2024 Sodium [Moles/Vol] 141 mmol/L 133-145 [facility] White blood cell (WBC) count Ordered By: Ishaan Bernabe on 11-15-2024 WBC (Bld) [#/Vol] 7.5 10*3/uL 4.4-11.0 [facility] Anion gap in Serum or Plasma Ordered By: Ishaan Bernabe on 09-12-2024 Anion gap [Moles/Vol] 9 mmol/L 5-15 [facility] BUN/creatinine ratioOrdered By: Ishaan Bernabe on 09-12-2024 Urea nitrogen/Creatinine [Mass ratio] 28.3 mg/mg High 10 [facility] Basic Metabolic Profile (BMP )on 09-12-2024 BUN/CRE 28.3 RATIO High 03-12 [facility] Comment on above: Order Comment: CMV N EG? N Number of units to transfuse: 1 Reason for Ordering Blood: Acute Are the blood/blood products to be transfused? Y Is the patient having/had surgery? N When Ready N Y Performed By: #### M 100.7900, BRC, L300.4310, BTS, L300.3900 #### [facility] [address] [place], [address] Calcium [Mass/Vol] 9.4 mg/dL Normal 7.6-11.0 [facility] Comment on above: Order Comment: CMV N EG? N Number of units to transfuse: 1 Reason for Ordering Blood: Acute Are the blood/blood products to be transfused? Y Is the patient having/had surgery? N When Ready N Y Performed By: #### M 100.7900, BRC, L300.4310, BTS, L300.3900 #### [facility] [address] [place], [address] Chloride [Moles/Vol] 106 mmol/L Normal 98-108 [facility] Comment on above: Order Comment: CMV N EG? N Number of units to transfuse: 1 Reason for Ordering Blood: Acute Are the blood/blood products to be transfused? Y Is the patient having/had surgery? N When Ready N Y Performed By: #### M 100.7900, BRC, L300.4310, BTS, L300.3900 #### [facility] [address] [place], [address] CO2 [Moles/Vol] 24.4 mmol/L Normal 21.0-32.0 [facility] Comment on above: Order Comment: CMV N EG? N Number of units to transfuse: 1 Reason for Ordering Blood: Acute Are the blood/blood products to be transfused? Y Is the patient having/had surgery? N When Ready N Y Performed By: #### M 100.7900, BRC, L300.4310, BTS, L300.3900 #### [facility] [address] [place], [address] Creatinine [Mass/Vol] 0.83 mg/dL Normal 0.70-1.20 [facility] Comment on above: Order Comment: CMV N EG? N Number of units to transfuse: 1 Reason for Ordering Blood: Acute Are the blood/blood products to be transfused? Y Is the patient having/had surgery? N When Ready N Y Performed By: #### M 100.7900, BRC, L300.4310, BTS, L300.3900 #### [facility] [address] [place], [address] GAP 9 Normal 5-15 [facility] Comment on above: Order Comment: CMV N EG? N Number of units to transfuse: 1 Reason for Ordering Blood: Acute Are the blood/blood products to be transfused? Y Is the patient having/had surgery? N When Ready N Y Performed By: #### M 100.7900, BRC, L300.4310, BTS, L300.3900 #### [facility] [address] [place], [address] GFR/1.73 sq M.predicted among non-blacks MDRD (S/P/Bld) [Vol rate/Area] 73 mL/min/{1.73_m2} Normal >60 [facility] Comment on above: Order Comment: CMV N EG? N Number of units to transfuse: 1 Reason for Ordering Blood: Acute Are the blood/blood products to be transfused? Y Is the patient having/had surgery? N When Ready N Y Result Comment: mL/m in/1.73m2 CKD-EPI Creatinine Equation (2020) Performed By: #### M 100.7900, BRC, L300.4310, BTS, L300.3900 #### [facility] [address] [place], [address] Glucose [Mass/Vol] 114 mg/dL High 70-99 [facility] Comment on above: Order Comment: CMV N EG? N Number of units to transfuse: 1 Reason for Ordering Blood: Acute Are the blood/blood products to be transfused? Y Is the patient having/had surgery? N When Ready N Y Performed By: #### M 100.7900, BRC, L300.4310, BTS, L300.3900 #### [facility] [address] [place], [address] Potassium [Moles/Vol] 4.1 mmol/L Normal 3.3-5.1 [facility] Comment on above: Order Comment: CMV N EG? N Number of units to transfuse: 1 Reason for Ordering Blood: Acute Are the blood/blood products to be transfused? Y Is the patient having/had surgery? N When Ready N Y Performed By: #### M 100.7900, BRC, L300.4310, BTS, L300.3900 #### [facility] [address] [place], [address] Sodium [Moles/Vol] 139 mmol/L Normal 133-145 [facility] Comment on above: Order Comment: CMV N EG? N Number of units to transfuse: 1 Reason for Ordering Blood: Acute Are the blood/blood products to be transfused? Y Is the patient having/had surgery? N When Ready N Y Performed By: #### M 100.7900, BRC, L300.4310, BTS, L300.3900 #### [facility] [address] [place], [address] Urea nitrogen [Mass/Vol] 23 mg/dL High 4-19 [facility] Comment on above: Order Comment: CMV N EG? N Number of units to transfuse: 1 Reason for Ordering Blood: Acute Are the blood/blood products to be transfused? Y Is the patient having/had surgery? N When Ready N Y Performed By: #### M 100.7900, BRC, L300.4310, BTS, L300.3900 #### [facility] [address] [place], [address] Carbon dioxide, total [Moles /volume] in Central venous bloodOrdered By: Ishaan Bernabe on 09-12-2024 CO2 [Moles/Vol] 24.4 mmol/L 21.0-32.0 [facility] Chloride assayOrdered By: Mary Bernabe on 09-12-2024 Chloride [Moles/Vol] 106 mmol/L 98-108 [facility] GFR/1.73 sq M.predicted constantine g non-blacks MDRD (S/P/Bld) [Vol rate/Area]Ordered By: Ishaan Bernabe on 09-12-2024 Estimated GFR (MDRD) Non-Af Amer 73 >60 [facility] Comment on above: mL/min/1.73m2 CKD-EP I Creatinine Equation (2020) Glomerular filtration rate ( GFR) estimation/1.73 sq m using serum, plasma, or whole bOrdered By: Ishaan Bernabe on 09-12-2024 GFR/1.73 sq M.predicted among non-blacks MDRD (S/P/Bld) [Vol rate/Area] 73 mL/min/{1.73_m2} >60 [facility] Comment on above: mL/min/1.73m2 CKD-EP I Creatinine Equation (2020) Potassium (Unsp spec) [Mass/ Vol]Ordered By: Ishaan Bernabe on 09-12-2024 Potassium [Moles/Vol] 4.1 mmol/L 3.3-5.1 [facility] Potassium measurement (mass/ volume)Ordered By: Ishaan Bernabe on 09-12-2024 Potassium (Unsp spec) [Mass/Vol] 4.1 mmol/L 3.3-5.1 [facility] Serum creatinine measurement (mass/volume)Ordered By: Ishaan Bernabe on 09-12-2024 Creatinine [Mass/Vol] 0.83 mg/dL 0.70-1.20 [facility] Serum glucose measurement (m ass/volume)Ordered By: Ishaan Bernabe on 09-12-2024 Glucose [Mass/Vol] 114 mg/dL High 70-99 [facility] Serum or plasma calcium kayleen urement (mass/volume)Ordered By: Ishaan Bernabe on 09-12-2024 Calcium [Mass/Vol] 9.4 mg/dL 7.6-11.0 [facility] Serum or plasma urea nitroge n measurement (mass/volume)Ordered By: Ishaan Bernabe on 09-12-2024 Urea nitrogen [Mass/Vol] 23 mg/dL High 4-19 [facility] Sodium levelOrdered By: Ishaan Bernabe on 09-12-2024 Sodium [Moles/Vol] 139 mmol/L 133-145 [facility] Anion gap in Serum or Plasma Ordered By: Ishaan Bernabe on 08-29-2024 Anion gap [Moles/Vol] 8 mmol/L 5-15 [facility] BUN/creatinine ratioOrdered By: Ishaan Bernabe on 08-29-2024 Urea nitrogen/Creatinine [Mass ratio] 24.8 mg/mg High [facility]20 [facility] Basic Metabolic Profile (BMP )on 08-29-2024 BUN/CRE 24.8 RATIO High [facility] Comment on above: Order Comment: 129.1 Performed By: #### M 100.7900, BRC, L300.4310, BTS, L300.3900 #### [facility] [address] [place], [address] Calcium [Mass/Vol] 9.6 mg/dL Normal 7.6-11.0 [facility] Comment on above: Order Comment: 129.1 Performed By: #### M 100.7900, BRC, L300.4310, BTS, L300.3900 #### [facility] [address] [place], [address] Chloride [Moles/Vol] 105 mmol/L Normal 98-108 [facility] Comment on above: Order Comment: 129.1 Performed By: #### M 100.7900, BRC, L300.4310, BTS, L300.3900 #### [facility] [address] [place], [address] CO2 [Moles/Vol] 23.4 mmol/L Normal 21.0-32.0 [facility] Comment on above: Order Comment: 129.1 Performed By: #### M 100.7900, BRC, L300.4310, BTS, L300.3900 #### [facility] [address] [place], [address] Creatinine [Mass/Vol] 0.77 mg/dL Normal 0.70-1.20 [facility] Comment on above: Order Comment: 129.1 Performed By: #### M 100.7900, BRC, L300.4310, BTS, L300.3900 #### [facility] [address] [place], [address] GAP 8 Normal 5-15 [facility] Comment on above: Order Comment: 129.1 Performed By: #### M 100.7900, BRC, L300.4310, BTS, L300.3900 #### [facility] [address] [place], [address] GFR/1.73 sq M.predicted among non-blacks MDRD (S/P/Bld) [Vol rate/Area] 79 mL/min/{1.73_m2} Normal >60 [facility] Comment on above: Order Comment: 129.1 Result Comment: mL/m in/1.73m2 CKD-EPI Creatinine Equation (2020) Performed By: #### M 100.7900, BRC, L300.4310, BTS, L300.3900 #### [facility] [address] [place], [address] Glucose [Mass/Vol] 103 mg/dL High 70-99 [facility] Comment on above: Order Comment: 129.1 Performed By: #### M 100.7900, BRC, L300.4310, BTS, L300.3900 #### [facility] [address] [place], [address] Potassium [Moles/Vol] 5.5 mmol/L High 3.3-5.1 [facility] Comment on above: Order Comment: 129.1 Performed By: #### M 100.7900, BRC, L300.4310, BTS, L300.3900 #### [facility] [address] [place], [address] Sodium [Moles/Vol] 137 mmol/L Normal 133-145 [facility] Comment on above: Order Comment: 129.1 Performed By: #### M 100.7900, BRC, L300.4310, BTS, L300.3900 #### [facility] [address] [place], [address] Urea nitrogen [Mass/Vol] 19 mg/dL Normal 4-19 [facility] Comment on above: Order Comment: 129.1 Performed By: #### M 100.7900, BRC, L300.4310, BTS, L300.3900 #### [facility] [address] [place], [place], [address] Carbon dioxide, total [Moles /volume] in Central venous bloodOrdered By: Ishaan Bernabe on 08-29-2024 CO2 [Moles/Vol] 23.4 mmol/L 21.0-32.0 [facility] Chloride assayOrdered By: Mary Bernabe on 08-29-2024 Chloride [Moles/Vol] 105 mmol/L 98-108 [facility] GFR/1.73 sq M.predicted constantine g non-blacks MDRD (S/P/Bld) [Vol rate/Area]Ordered By: Ishaan Bernabe on 08-29-2024 Estimated GFR (MDRD) Non-Af Amer 79 >60 [facility] Comment on above: mL/min/1.73m2 CKD-EP I Creatinine Equation (2020) Glomerular filtration rate ( GFR) estimation/1.73 sq m using serum, plasma, or whole bOrdered By: Ishaan Bernabe on 08-29-2024 GFR/1.73 sq M.predicted among non-blacks MDRD (S/P/Bld) [Vol rate/Area] 79 mL/min/{1.73_m2} >60 [facility] Comment on above: mL/min/1.73m2 CKD-EP I Creatinine Equation (2020) Potassium (Unsp spec) [Mass/ Vol]Ordered By: Ishaan Bernabe on 08-29-2024 Potassium [Moles/Vol] 5.5 mmol/L High 3.3-5.1 [facility] Potassium measurement (mass/ volume)Ordered By: Ishaan Bernabe on 08-29-2024 Potassium (Unsp spec) [Mass/Vol] 5.5 mmol/L High 3.3-5.1 [facility] Serum creatinine measurement (mass/volume)Ordered By: Ishaan Bernabe on 08-29-2024 Creatinine [Mass/Vol] 0.77 mg/dL 0.70-1.20 [facility] Serum glucose measurement (m ass/volume)Ordered By: Ishaan Bernabe on 08-29-2024 Glucose [Mass/Vol] 103 mg/dL High 70-99 [facility] Serum or plasma calcium kayleen urement (mass/volume)Ordered By: Ishaan Bernabe on 08-29-2024 Calcium [Mass/Vol] 9.6 mg/dL 7.6-11.0 [facility] Serum or plasma urea nitroge n measurement (mass/volume)Ordered By: Ishaan Bernabe on 08-29-2024 Urea nitrogen [Mass/Vol] 19 mg/dL 4-19 [facility] Sodium levelOrdered By: Ishaan Bernabe on 08-29-2024 Sodium [Moles/Vol] 137 mmol/L 133-145 [facility] Anion gap in Serum or Plasma Ordered By: Ishaan Bernabe on 08-14-2024 Anion gap [Moles/Vol] 9 mmol/L 5-15 [facility] BUN/creatinine ratioOrdered By: Ishaan Bernabe on 08-14-2024 Urea nitrogen/Creatinine [Mass ratio] 29.0 mg/mg High 10-20 [facility] Basic Metabolic Profile (BMP )on 08-14-2024 BUN/CRE 29.0 RATIO High - [facility] Comment on above: Order Comment: 129 Performed By: #### M 100.7900, BRC, L300.4310, BTS, L300.3900 #### [facility] [address] [place], [address] Calcium [Mass/Vol] 9.4 mg/dL Normal 7.6-11.0 [facility] Comment on above: Order Comment: 129 Performed By: #### M 100.7900, BRC, L300.4310, BTS, L300.3900 #### [facility] [address] [place], [address] Chloride [Moles/Vol] 107 mmol/L Normal 98-108 [facility] Comment on above: Order Comment: 129 Performed By: #### M 100.7900, BRC, L300.4310, BTS, L300.3900 #### [facility] [address] [place], [address] CO2 [Moles/Vol] 21.7 mmol/L Normal 21.0-32.0 [facility] Comment on above: Order Comment: 129 Performed By: #### M 100.7900, BRC, L300.4310, BTS, L300.3900 #### [facility] [address] [place], [address] Creatinine [Mass/Vol] 0.80 mg/dL Normal 0.70-1.20 [facility] Comment on above: Order Comment: 129 Performed By: #### M 100.7900, BRC, L300.4310, BTS, L300.3900 #### [facility] [address] [place], [address] GAP 9 Normal 5-15 [facility] Comment on above: Order Comment: 129 Performed By: #### M 100.7900, BRC, L300.4310, BTS, L300.3900 #### [facility] [address] [place], [address] GFR/1.73 sq M.predicted among non-blacks MDRD (S/P/Bld) [Vol rate/Area] 76 mL/min/{1.73_m2} Normal >60 [facility] Comment on above: Order Comment: 129 Result Comment: mL/m in/1.73m2 CKD-EPI Creatinine Equation (2020) Performed By: #### M 100.7900, BRC, L300.4310, BTS, L300.3900 #### [facility] [address] [place], [address] Glucose [Mass/Vol] 74 mg/dL Normal 70-99 [facility] Comment on above: Order Comment: 129 Performed By: #### M 100.7900, BRC, L300.4310, BTS, L300.3900 #### [facility] [address] [place], [address] Potassium [Moles/Vol] 5.4 mmol/L High 3.3-5.1 [facility] Comment on above: Order Comment: 129 Performed By: #### M 100.7900, BRC, L300.4310, BTS, L300.3900 #### [facility] [address] [place], [address] Sodium [Moles/Vol] 138 mmol/L Normal 133-145 [facility] Comment on above: Order Comment: 129 Performed By: #### M 100.7900, BRC, L300.4310, BTS, L300.3900 #### [facility] [address] [place], [address] Urea nitrogen [Mass/Vol] 23 mg/dL High 4-19 [facility] Comment on above: Order Comment: 129 Performed By: #### M 100.7900, BRC, L300.4310, BTS, L300.3900 #### [facility] [address] [place], [address] CBC-Complete Blood Cnt No Di ffon 08-14-2024 Erythrocyte distribution width (RBC) [Ratio] 12.9 % Normal 11.6-14.6 [facility] Comment on above: Order Comment: 129 Performed By: #### M 100.7900, BRC, L300.4310, BTS, L300.3900 #### [facility] [address] [place], [address] Hematocrit (Bld) [Volume fraction] 37.5 % Normal 37-47 [facility] Comment on above: Order Comment: 129 Performed By: #### M 100.7900, BRC, L300.4310, BTS, L300.3900 #### [facility] [address] [place], [address] Hemoglobin (Bld) [Mass/Vol] 12.0 g/dL Normal 12.0-15.0 [facility] Comment on above: Order Comment: 129 Performed By: #### M 100.7900, BRC, L300.4310, BTS, L300.3900 #### [facility] [address] [place], [address] MCH (RBC) [Entitic mass] 29.6 pg Normal 27.0-32.0 [facility] Comment on above: Order Comment: 129 Performed By: #### M 100.7900, BRC, L300.4310, BTS, L300.3900 #### [facility] [address] [place], [address] MCHC (RBC) [Mass/Vol] 32.0 g/dL Normal 32-36 [facility] Comment on above: Order Comment: 129 Performed By: #### M 100.7900, BRC, L300.4310, BTS, L300.3900 #### [facility] [address] [place], [address] MCV (RBC) [Entitic vol] 92.4 fL Normal 81-99 [facility] Comment on above: Order Comment: 129 Performed By: #### M 100.7900, BRC, L300.4310, BTS, L300.3900 #### [facility] [address] [place], [address] Platelet mean volume (Bld) [Entitic vol] 10.8 fL Normal 6.2-12.0 [facility] Comment on above: Order Comment: 129 Performed By: #### M 100.7900, BRC, L300.4310, BTS, L300.3900 #### [facility] [address] [place], [address] Platelets (Bld) [#/Vol] 415 10*3/uL Normal 150-450 [facility] Comment on above: Order Comment: 129 Performed By: #### M 100.7900, BRC, L300.4310, BTS, L300.3900 #### [facility] [address] [place], [address] RBC (Bld) [#/Vol] 4.06 10*6/uL Low 4.2-5.4 [facility] Comment on above: Order Comment: 129 Performed By: #### M 100.7900, BRC, L300.4310, BTS, L300.3900 #### [facility] [address] [place], [address] RDW SD 43.5 fl Normal 35.1-43.9 [facility] Comment on above: Order Comment: 129 Performed By: #### M 100.7900, BRC, L300.4310, BTS, L300.3900 #### [facility] [facility] [address] [place], [address] WBC (Bld) [#/Vol] 10.1 10*3/uL Normal 4.4-11.0 [facility] Comment on above: Order Comment: 129 Performed By: #### M 100.7900, BRC, L300.4310, BTS, L300.3900 #### [facility] [address] [place], [address] Carbon dioxide, total [Moles /volume] in Central venous bloodOrdered By: Ishaan Bernabe on 08-14-2024 CO2 [Moles/Vol] 21.7 mmol/L 21.0-32.0 [facility] Chloride assayOrdered By: Mary Bernabe on 08-14-2024 Chloride [Moles/Vol] 107 mmol/L 98-108 [facility] Erythrocyte distribution wid th (RBC) [Ratio]Ordered By: Ishaan Bernabe on 08-14-2024 Erythrocyte distribution width (RBC) [Entitic vol] 43.5 fL 35.1-43.9 [facility] Erythrocyte distribution wid th ratioOrdered By: Ishaan Bernabe on 08-14-2024 Erythrocyte distribution width (RBC) [Ratio] 12.9 % 11.6-14.6 [facility] GFR/1.73 sq M.predicted constantine g non-blacks MDRD (S/P/Bld) [Vol rate/Area]Ordered By: Ishaan Bernabe on 08-14-2024 Estimated GFR (MDRD) Non-Af Amer 76 >60 [facility] Comment on above: mL/min/1.73m2 CKD-EP I Creatinine Equation (2020) Hematocrit Auto (Bld) [Volum e fraction]Ordered By: Ishaan Bernabe on 08-14-2024 Hematocrit (Bld) [Volume fraction] 37.5 % 37-47 [facility] Hemoglobin measurementOrdere d By: Ishaan Bernabe on 08-14-2024 Hemoglobin (Bld) [Mass/Vol] 12.0 g/dL 12.0-15.0 [facility] L506.1001on 08-14-2024 Vitamin D 25-OH 72.2 ng/mL Normal 30-100 [facility] Comment on above: Order Comment: 129 Result Comment: Yancy min D Status Deficiency: <20 ng/mL (50nmol/L) Insufficiency: 20-30 ng/mL (50-75 nmol/L) Sufficiency: 30-100 ng/mL (75-250 nmol/L) Toxicity: >100 ng/mL (>250 nmol/L) Performed By: #### M 100.7900, BRC, L300.4310, BTS, L300.3900 #### [facility] [address] [place] [address], [id number] MCV (mean corpuscular volume ) determinationOrdered By: Ishaan Bernabe on 08-14-2024 MCV (RBC) [Entitic vol] 92.4 fL 81-99 [facility] Mean corpuscular hemoglobin (MCH) determinationOrdered By: Ishaan Bernabe on 08-14-2024 MCH (RBC) [Entitic mass] 29.6 pg 27.0-32.0 [facility] Mean corpuscular hemoglobin concentration (MCHC) determinationOrdered By: Ishaan Bernabe on 08-14-2024 MCHC (RBC) [Mass/Vol] 32.0 g/dL 32-36 [facility] Mean platelet volume determi nationOrdered By: Ishaan Bernabe on 08-14-2024 Platelet mean volume (Bld) [Entitic vol] 10.8 fL 6.2-12.0 [facility] Platelet countOrdered By: Mary Bernabe on 08-14-2024 Platelets (Bld) [#/Vol] 415 10*3/uL 150-450 [facility] Potassium (Unsp spec) [Mass/ Vol]Ordered By: Ishaan Bernabe on 08-14-2024 Potassium [Moles/Vol] 5.4 mmol/L High 3.3-5.1 [facility] RBC Auto (Bld) [#/Vol]Ordere d By: Ishaan Bernabe on 08-14-2024 RBC (Bld) [#/Vol] 4.06 10*6/uL Low 4.2-5.4 [facility] Serum creatinine measurement (mass/volume)Ordered By: Ishaan Bernabe on 08-14-2024 Creatinine [Mass/Vol] 0.80 mg/dL 0.70-1.20 [facility] Serum glucose measurement (m ass/volume)Ordered By: Ishaan Bernabe on 08-14-2024 Glucose [Mass/Vol] 74 mg/dL 70-99 [facility] Serum or plasma calcium kayleen urement (mass/volume)Ordered By: Ishaan Bernabe on 08-14-2024 Calcium [Mass/Vol] 9.4 mg/dL 7.6-11.0 [facility] Serum or plasma urea nitroge n measurement (mass/volume)Ordered By: Ishaan Bernabe on 08-14-2024 Urea nitrogen [Mass/Vol] 23 mg/dL High 4-19 [facility] Sodium levelOrdered By: Ishaan Bernabe on 08-14-2024 Sodium [Moles/Vol] 138 mmol/L 133-145 [facility] Vitamin D, 25-hydroxyOrdered By: Ishaan Bernabe on 08-14-2024 Vitamin D 25-Hydroxy 72.2 ng/mL 30-100 [facility] Comment on above: Vitamin D StatusDefi ciency: <20 ng/mL (50nmol/L)Insufficiency: 20-30 ng/mL (50-75 nmol/L)Sufficiency: 30-100 ng/mL (75-250 nmol/L)Toxicity: >100 ng/mL (>250 nmol/L) White blood cell (WBC) count Ordered By: Ishaan Bernabe on 08-14-2024 WBC (Bld) [#/Vol] 10.1 10*3/uL 4.4-11.0 [facility] Basic Metabolic Profile (BMP )on 05-16-2024 BUN/CRE 28.5 RATIO High 10-20 [facility] Comment on above: Order Comment: 129.1 Performed By: #### M 100.7900, BRC, L300.4310, BTS, L300.3900 #### [facility] [address] [place], [address] CA,Total 9.3 mg/dL Normal 8.5-10.1 [facility] Comment on above: Order Comment: 129.1 Performed By: #### M 100.7900, BRC, L300.4310, BTS, L300.3900 #### [facility] [address] [place], [address] Chloride [Moles/Vol] 110 mmol/L High 98-107 [facility] Comment on above: Order Comment: 129.1 Performed By: #### M 100.7900, BRC, L300.4310, BTS, L300.3900 #### [facility] [address] [place], [address] CO2 [Moles/Vol] 27.0 mmol/L Normal 21.0-32.0 [facility] Comment on above: Order Comment: 129.1 Performed By: #### M 100.7900, BRC, L300.4310, BTS, L300.3900 #### [facility] [address] [place], [address] Creatinine [Mass/Vol] 0.60 mg/dL Normal 0.55-1.02 [facility] Comment on above: Order Comment: 129.1 Result Comment: The validity of the calculated GFR GFRAA in patients over 70 years has not been determined. Clinical correlation is essential. Performed By: #### M 100.7900, BRC, L300.4310, BTS, L300.3900 #### [facility] [address] [place], [address] EST GFR - AA 126 mL/min Normal >60 [facility] Comment on above: Order Comment: 129.1 Result Comment: Afri can Georgian GFR Calc Performed By: #### M 100.7900, BRC, L300.4310, BTS, L300.3900 #### [facility] [address] [place], [address] GAP 2 Low 5-15 [facility] Comment on above: Order Comment: 129.1 Performed By: #### M 100.7900, BRC, L300.4310, BTS, L300.3900 #### [facility] [address] [place], [address] GFR/1.73 sq M.predicted among non-blacks MDRD (S/P/Bld) [Vol rate/Area] 104 mL/min/{1.73_m2} Normal >60 [facility] Comment on above: Order Comment: 129.1 Result Comment: Non- GFR Calc Performed By: #### M 100.7900, BRC, L300.4310, BTS, L300.3900 #### [facility] [address] [place], [address] Glucose [Mass/Vol] 96 mg/dL Normal 74-106 [facility] Comment on above: Order Comment: 129.1 Performed By: #### M 100.7900, BRC, L300.4310, BTS, L300.3900 #### [facility] [address] [place], [address] Potassium [Moles/Vol] 3.7 mmol/L Normal 3.5-5.1 [facility] Comment on above: Order Comment: 129.1 Performed By: #### M 100.7900, BRC, L300.4310, BTS, L300.3900 #### [facility] [address] [place], [address] Sodium [Moles/Vol] 139 mmol/L Normal 136-145 [facility] Comment on above: Order Comment: 129.1 Performed By: #### M 100.7900, BRC, L300.4310, BTS, L300.3900 #### [facility] [address] [place], [address] Urea nitrogen [Mass/Vol] 17 mg/dL Normal 7-18 [facility] Comment on above: Order Comment: 129.1 Performed By: #### M 100.7900, BRC, L300.4310, BTS, L300.3900 #### [facility] [address] [place], [address] Blood urea nitrogen (BUN)/cr eatinine ratioOrdered By: Ishaan Bernabe on 05-16-2024 Urea nitrogen/Creatinine [Mass ratio] 28.5 mg/mg High 10-20 [facility] CBC-Complete Blood Cnt No Di ffon 05-16-2024 Erythrocyte distribution width (RBC) [Ratio] 14.0 % Normal 11.6-14.6 [facility] Comment on above: Order Comment: 129.1 Performed By: #### M 100.7900, BRC, L300.4310, BTS, L300.3900 #### [facility] [address] [place], [address] Hematocrit (Bld) [Volume fraction] 37.5 % Normal 37-47 [facility] Comment on above: Order Comment: 129.1 Performed By: #### M 100.7900, BRC, L300.4310, BTS, L300.3900 #### [facility] [address] [place], [address] Hemoglobin (Bld) [Mass/Vol] 11.8 g/dL Low 12.0-15.0 [facility] Comment on above: Order Comment: 129.1 Performed By: #### M 100.7900, BRC, L300.4310, BTS, L300.3900 #### [facility] [address] [place], [address] MCH (RBC) [Entitic mass] 28.2 pg Normal 27.0-32.0 [facility] Comment on above: Order Comment: 129.1 Performed By: #### M 100.7900, BRC, L300.4310, BTS, L300.3900 #### [facility] [address] [place], [address] MCHC (RBC) [Mass/Vol] 31.5 g/dL Low 32-36 [facility] Comment on above: Order Comment: 129.1 Performed By: #### M 100.7900, BRC, L300.4310, BTS, L300.3900 #### [facility] [address] [place], [address] MCV (RBC) [Entitic vol] 89.7 fL Normal 81-99 [facility] Comment on above: Order Comment: 129.1 Performed By: #### M 100.7900, BRC, L300.4310, BTS, L300.3900 #### [facility] [address] [place], [address] Platelet mean volume (Bld) [Entitic vol] 10.8 fL Normal 6.2-12.0 [facility] Comment on above: Order Comment: 129.1 Performed By: #### M 100.7900, BRC, L300.4310, BTS, L300.3900 #### [facility] [address] [place], [address] Platelets (Bld) [#/Vol] 381 10*3/uL Normal 150-450 [facility] Comment on above: Order Comment: 129.1 Performed By: #### M 100.7900, BRC, L300.4310, BTS, L300.3900 #### [facility] [address] [place], [address] RBC (Bld) [#/Vol] 4.18 10*6/uL Low 4.2-5.4 [facility] Comment on above: Order Comment: 129.1 Performed By: #### M 100.7900, BRC, L300.4310, BTS, L300.3900 #### [facility] [address] [place], [address] RDW SD 46.2 fl High 35.1-43.9 [facility] Comment on above: Order Comment: 129.1 Performed By: #### M 100.7900, BRC, L300.4310, BTS, L300.3900 #### [facility] [address] [place], [address] WBC (Bld) [#/Vol] 10.0 10*3/uL Normal 4.4-11.0 [facility] Comment on above: Order Comment: 129.1 Performed By: #### M 100.7900, BRC, L300.4310, BTS, L300.3900 #### [facility] [address] [place], [address] Carbon dioxide measurementOr dered By: Ishaan Bernabe on 05-16-2024 CO2 [Moles/Vol] 27.0 mmol/L 21.0-32.0 [facility] Chloride measurementOrdered By: Ishaan Bernabe on 05-16-2024 Chloride [Moles/Vol] 110 mmol/L High 98-107 [facility] Erythrocyte distribution wid th (RBC) [Ratio]Ordered By: Ishaan Bernabe on 05-16-2024 Erythrocyte distribution width (RBC) [Entitic vol] 46.2 fL High 35.1-43.9 [facility] Erythrocyte distribution wid th ratioOrdered By: Ishaan Bernabe on 05-16-2024 Erythrocyte distribution width (RBC) [Ratio] 14.0 % 11.6-14.6 [facility] Estimated glomerular filtrat ion rate (GFR) AmericanOrdered By: Ishaan Bernabe on 05-16-2024 Estimated GFR (MDRD) Amer 126 mL/min >60 [facility] Comment on above: GFR Calc Glomerular filtration rate ( GFR) estimationOrdered By: Ishaan Bernabe on 05-16-2024 Estimated GFR (MDRD) Non-Af Amer 104 mL/min >60 [facility] Comment on above: Non- GFR Calc Glucose measurementOrdered B y: Ishaan Bernabe on 05-16-2024 Glucose [Mass/Vol] 96 mg/dL 74-106 [facility] Hematocrit Auto (Bld) [Volum e fraction]Ordered By: Ishaan Bernabe on 05-16-2024 Hematocrit (Bld) [Volume fraction] 37.5 % 37-47 [facility] Hemoglobin measurementOrdere d By: Ishaan Bernabe on 05-16-2024 Hemoglobin (Bld) [Mass/Vol] 11.8 g/dL Low 12.0-15.0 [facility] MCV (mean corpuscular volume ) determinationOrdered By: Ishaan Bernabe on 05-16-2024 MCV (RBC) [Entitic vol] 89.7 fL 81-99 [facility] Mean corpuscular hemoglobin (MCH) determinationOrdered By: Ishaan Bernabe on 05-16-2024 MCH (RBC) [Entitic mass] 28.2 pg 27.0-32.0 [facility] Mean corpuscular hemoglobin concentration (MCHC) determinationOrdered By: Ishaan Bernabe on 05-16-2024 MCHC (RBC) [Mass/Vol] 31.5 g/dL Low 32-36 [facility] Mean platelet volume determi nationOrdered By: Ishaan Bernabe on 05-16-2024 Platelet mean volume (Bld) [Entitic vol] 10.8 fL 6.2-12.0 [facility] Platelet countOrdered By: Mary Bernabe on 05-16-2024 Platelets (Bld) [#/Vol] 381 10*3/uL 150-450 [facility] Potassium measurementOrdered By: Ishaan Bernabe on 05-16-2024 Potassium [Moles/Vol] 3.7 mmol/L 3.5-5.1 [facility] RBC Auto (Bld) [#/Vol]Ordere d By: Ishaan Bernabe on 05-16-2024 RBC (Bld) [#/Vol] 4.18 10*6/uL Low 4.2-5.4 [facility] Serum anion gap measurementO rdered By: Ishaan Bernabe on 05-16-2024 Anion gap [Moles/Vol] 2 mmol/L Low 5-15 [facility] Serum or plasma calcium kayleen urement (mass/volume)Ordered By: Ishaan Bernabe on 05-16-2024 Calcium [Mass/Vol] 9.3 mg/dL 8.5-10.1 [facility] Serum or plasma creatinine m easurement (mass/volume)Ordered By: Ishaan Bernabe on 05-16-2024 Creatinine [Mass/Vol] 0.60 mg/dL 0.55-1.02 [facility] Comment on above: The validity of the calculated GFR & GFRAA in patients over 70 years has not been determined. Clinical correlation is essential. Serum or plasma urea nitroge n measurement (mass/volume)Ordered By: Ishaan Bernabe on 05-16-2024 Urea nitrogen [Mass/Vol] 17 mg/dL 7-18 [facility] Sodium levelOrdered By: Ishaan Bernabe on 05-16-2024 Sodium [Moles/Vol] 139 mmol/L 136-145 [facility] White blood cell (WBC) count Ordered By: Ishaan Bernabe on 05-16-2024 WBC (Bld) [#/Vol] 10.0 10*3/uL 4.4-11.0 [facility] CNPNon 10-19-2023 CNPN Telephone (FRANCISCA) SADE RUSH ([id number]) 1945 F Date Time Provider Department 10/19/23 JOSE MIGUEL ALCALA During your visit today, we recorded the following information about you: Jose Miguel Alcala, PAINTER CHASSIS 10/19/2023 11:07 AM Signed Sw received message from patient requesting call back. Sw called patient back and phone rings with [employer] operations assistant coming on. No answer to call. Sw will try call another time. Pattie Rider, [...] tomorrow to the ER. Pt thought Werner Wihtfield would still be able to take care of her while she is in the hospital. Explained that the hospital providers would take over her care. Pt verbalized understanding. Attempted to get a hold of social science analyst as it appears she was trying to call pt back. Pt will keep her phone on and with her. Jose Miguel Alcala, PAINTER CHASSIS 10/19/2023 3:23 PM Signed Adelaide unsure as to the likelihood of [facility] admitting patient regarding below. Adelaide will defer message to DAT Caldera for [...] Chronic asthmatic (more content not included)... Normal [facility] 10-04-2023 [facility] Telephone (ARTEMIOWS) SADE RUSH ([id number]) 1945 F Date Time Provider Department 10/04/23 JAQUELIN LEDBETTER During your visit today, we recorded the following information about you: Jaquelin Ledbetter LPN 10/04/2023 4:47 PM Signed Pt calls to request order for wheelchair be faxed to [employer] @ [phone]. Order and pt information faxed as requested. Pt also reports [facility] phone #[phone]. BRENNEN [place], [place] 10/06/2023 9:28 AM Addendum Received forms from [employer]. Requires [id number] for wheelchair. Also needs Rx for wheelchair, and PT/OT. Patient is scheduled on 10/11/23 with Werner. This can be discussed at time of appointment. Forms on Luz Isaacs desk. Placed call to patient with no [...] Encounter Status:Closed by JAQUELIN LEDBETTER on 10/04/23 [facility] 07-28-2023 CNPN Telephone (SOCSIF) SADE RUSH ([id number]) 1945 F Date Time Provider Department 07/28/23 JOSE MIGUEL ALCALA SOCS During your visit today, we recorded the [...] chart, now have correct one. Jose Miguel Alcala, PAINTER CHASSIS 07/30/2023 4:40 PM Addendum Patient and Sw discussed home clinical care coordinator agency. Patient notes that her insurance told her that they would cover a home clinical care coordinator. Patient reports that she would need home clinical care coordinator from 08/17-08/31. Laine notes that her caregivers are going out of town on a cruise and she needs someone to assist her when they are gone. Need to check and see if a home clinical care coordinator agency is accepted by patient insurance. Sw notes that she will have to call patient insurance to see about a listing of home clinical care coordinator agencies that are in network with patient insurance. [phone] [facility] [phone] number Adelaide noted to patient that she would see about home clinical care coordinator agency names in network with insurance. Sw noted that she would call patient back on Wednesday next week to update her on what Adelaide has found out. Jose Miguel Alcala MSW 07/30/2023 4:23 PM Signed Adelaide tried call to [facility] and phone call would not go through. Adelaide will try call again on 08/02/23. Jose Miguel Alcala MSW 08/02/2023 12:51 PM Signed Adelaide called [facility] insurance. Patient insurance notes that home clinical care coordinator is only available through patient insurance if patient has also a [place]/PT/OT need. The only other home care program available is for someone with a serious health condition that also needs [place] assistance. There are no other home care [...] Signed Adelaide spoke with patient and provided [facility], [facility], [facility], and [facility] contact information. Adelaide told patient that patient insurance stated that home care aids by their self, are not available through patient insurance. Only available with conjunction of [place]/PT/OT. Patient reports that she will reach out to above agencies and will start with [facility] to see about resources they may have for assistance.Patient notes that she will compare cost and hour availability. Patient thanked Adelaide for call back and resources. Allergies As of Date: 07/28/2023 Noted Allergy Reaction HORSE DANDER 12/05/2018 16 - Unknown Comments: horse serum Date Reviewed: 07/13/2023 Reviewed by: Keesha Isaacs LPN - Fully Assessed Reason for Visit: Patient Question [1558] Prescriptions as of 08/17/2023 - SUMAtriptan (IMITREX) [...] ne (LOM (more content not included)... Normal [facility] Telephone (FAMPWS) SADE RUSH ([id number]) 1945 F Date Time Provider Department 07/28/23 Beena WHITFIELD During your visit today, we [...] Visit Diagnosis:Myasthenia gravis (HCC) [G70.00] Order(s):STANDARD WHEELCHAIR [[id number]] Order #: [id number] Prescriptions as of 08/10/2023 - SUMAtriptan (IMITREX) [...] Encounter Status:Closed by KEESHA ISAACS [facility] SADE R[facility] ([id number]) 1945 F Date Time Provider Department 07/15/23 JOSE MIGUEL ALCALA During your visit today, we recorded the following information about you: Jose Miguel Alcala MSW 07/15/2023 9:34 AM Signed Adelaide left message for patient tor return call to discuss community resources/medicare questions. Jose Miguel Alcala MSW 07/16/2023 12:53 PM Signed Adelaide tried call to patient and received message"all circuits are busy now, please try call again later." Jose Miguel Alcala MSW 07/19/2023 9:57 AM Addendum Adelaide tried call again to patient and received message welcome to [employer] your call cannot be completed as dialed." Tried call again and received same message. Williejazminekevin Jose Miguel, TOMAS 07/21/2023 12:03 PM Signed Sw called patient and left message to have call returned to discuss [employer] social service/medicare questions. Allergies As of Date: [...] Status:Closed by JOSE MIGUEL ALCALA on 07/21/23 [facility] CNOVon 07-13-2023 CNOV Office Visit (FAMPWS) SADE RUSH ([id number]) 1945 F Date Time Provider Department 07/13/23 11:00 AM [facility] During your visit today, we recorded [...] refuse medication, talking about [employer] and subversive politics Stomach complaints/ diarrhea Yes, chronic but [...] level is better, not as bad. Using [place] very sparingly: cuts in half, at most [...] a day usually works. Montelukast 10mg daily Electrician Master: none. Interval history: no significant changes. . [...] 1 t (more content not included)... Normal [facility] Eva 06-21-2023 [facility] Telephone (ARTEMIOWS) SADE RUSH ([id number]) 1945 F Date Time Provider Department 06/21/23 WHITFIELDBeena During your visit today, we recorded the following information about you: Faheem Martinez DERMATOLOGY SPECIALIST 06/21/2023 9:40 AM Signed Pt scheduled for virtual on 06/23 for is to weak and all her joints hurt". Please triage. Faheem Martinez LPN Allergies As [...] Encounter Status:Closed by MIESHA BERNAL on 06/21/23 [facility] ([id number]) 1945 F Date Time Provider Department 06/08/23 Beena WHITFIELD [facility] During your visit today, we recorded the [...] an order for HH because she said "Kt and Akilah cannot be here all the time." It was hard to get answers from [...] Encounter Status:Closed by MYNOR HAMPTON on 06/22/23 [facility]FAMRenardWS[facility] SADE RUSH ([id number]) 1945 F Date Time Provider Department 04/20/23 [facility] During your visit today, we recorded the following information about you: Francisca Denise 04/20/2023 4:00 PM Signed Sade is calling Beena Whitfield PA-C today with [...] calling: self Call patient at: at home [phone] (home) [phone] (cell) Was an appointment scheduled: No Closing statement: Results or non-symptom based questions: Thank you for calling [facility], your call will be returned within the [...] recording- all circuits are busy. Faheem Martinez Allergies As of Date: 04/20/2023 Noted [...] Encounter Status:Closed by REBECCA BLANCO MA on 05/04/23 [facility] C[facility] Telephone (FAMPWS) SADE RUSH ([id number]) 1945 F Date Time Provider Department 03/11/23 Beena WHITFIELD During your visit today, we recorded the following information about you: Veronica Rae 03/11/2023 4:12 PM Signed Patient stated she tried to refill her sertraline rx and [facility] is insisting she doesn't have anymore refills. [...] Encounter Status:Closed by Beena WHITFIELD on 03/11/23 Normal [facility] BD DXA - AXIAL SKELETONon BD DXA - [...] Osteoporosis Less than or equal to -2.5 Sharemilker: ANIYAH Transcribe Date/Time: Mar 10 2023 2:05P Dictated by : MARY LE MD This examination was interpreted and the report reviewed and electronically signed by: MARY LE MD on Mar 10 2023 2:32PM EST [id number] Normal [facility] DXA-AXIAL SKELETONon 023 [facility] CNOVon 03-02-2023 CNOV Office Visit (FAMPWS) SADE RUSH ([id number]) 1945 F Date Time Provider Department 03/02/23 10:40 AM Beena WHITFIELD [facility] During your visit today, we recorded the [...] cholesterol. Observing low cholesterol high fiber diet: lawn specialist trying to cook meals, less Escalante's/ junk [...] neuropathy, without long-term current use of insulin (formerly [facility]) Current medications: Metformin 500mg twice a [...] exam: due. Polyneuropathy associated with underlying disease (formerly [facility]) Current medications: Hydrocodone 5-3 25 #28 1 tablet every 6 hours as needed for pain sparingly Camphor-methyl salicylate-menthol patch 3.1-10-6% daily as needed to site Tylenol arthritis 650 mg CR 2 capsules every 8 hours as needed Pain level is better, not as bad. Using [place] very sparingly: cuts in half, at most [...] a day usually works. Montelukast 10mg daily Electrician Master: none. Interval history: no significant changes. . [...] with al (more content not included)... [facility] (FAMPWS) SADE RUSH ([id number]) 1945 F Date Time Provider Department 12/02/22 Beena WHITFIELD During your visit today, we recorded the following information about you: Trista Machado 12/02/2022 5:26 PM Signed Eliza from [employer] area [...] by REBECCA BLANCO MA on 12/03/22 Normal [facility] CK SerPl-cCncon 12-01-2022 CK [Catalytic activity/Vol] 57 U/L Normal 42-196 [facility] Comment on above: Order Comment: Speci men Type: BLOOD SPECIMENOrdering Facility: [facility] Address: [address] [place] [address] Performed By: #### 2 4323-8, 2157-6 ####[facility] LABCLIA [id number] [address] CNCOon 12-01-2022 CNCO Letter Text Normal [facility] CNOVon 12-01-2022 CNOV Office Visit (FAMPWS) SADE RUSH ([id number]) 1945 F Date Time Provider Department 12/01/22 10:00 AM Beena WHITFIELD During your visit today, we recorded the following information about you: Pulse Blood pressure Weight Height 89/minute 116/70 70.3 kg 1.6 m Beena Whitfield PA-C 12/01/2022 10:37 AM Signed BONE [...] Lymph 1.00 - 4.00 k/uL 2.49 1.51 Jerauld% % 7.1 4.4 Abs Jerauld <0.87 k/uL 0.65 0.56 Eosin% % 4.0 [...] n/a Observing low cholesterol high fiber diet: lawn specialist trying to cook meals, less Escalante's/ junk [...] rashes? No (more content not included)... Normal [facility] SADE [facility] ([id number]) 1945 F Date Time Provider Department 12/01/22 Beena WHITFIELD [facility] During your visit today, we recorded the following information about you: Veronica Painter LPN 12/01/2022 9:05 AM Signed Eliza from [employer] would like Rx/letter for Air Conditioner for Pt. She has COPD and allergies. Please fax to . Beena Whitfield PA-C 12/01/2022 1:17 PM Signed Printed. Werner Payne PA-C Lisa Harn Ma 12/01/2022 4:28 PM Signed Letter faxed [...] Status:Closed by Beena WHITFIELD on 12/01/22 Normal [facility] metabolic 2000 panelon 12-01-2022 Albumin [Mass/Vol] 3.9 g/dL Normal 3.9-4.9 [facility] Comment on above: Order Comment: Speci men Type: BLOOD SPECIMENOrdering Facility: [facility] Address: [address] [place] [address] Performed By: #### 2 432-8, 2156-10 ####[facility] LABCLIA [id number] [place] [address] [place] ALP [Catalytic activity/Vol] 97 U/L Normal 34-123 [facility] Comment on above: Order Comment: Speci men Type: BLOOD SPECIMENOrdering Facility: [facility] Address: [address] [place], [place] [id number] Performed By: #### 2 4328, 2156-10 ####[facility] LABCLIA [id number] [place] [address] [place] ALT [Catalytic activity/Vol] 20 U/L Normal 7-38 [facility] Comment on above: Order Comment: Speci men Type: BLOOD SPECIMENOrdering Facility: [facility] Address: [address] [place], [place] [address] Performed By: #### 2 4323-8, 2156-10 ####[facility] LABCLIA [id number] [place] [address] [place] Anion gap [Moles/Vol] 18 mmol/L Normal 9-18 [facility] Comment on above: Order Comment: Speci men Type: BLOOD SPECIMENOrdering Facility: [facility] Address: [address] [place] [address] Performed By: #### 2 4323-8, 2156-10 ####[facility] LABCLIA [id number] [place] [address] [place] AST [Catalytic activity/Vol] 17 U/L Normal 13-35 [facility] Comment on above: Order Comment: Speci men Type: BLOOD SPECIMENOrdering Facility: [facility] Address: [address] [place] [address] Performed By: #### 2 4323-8, 2156-10 ####[facility] LABCLIA [id number] [place] [address] [place] Bilirubin [Mass/Vol] mg/dL Low 0.2-1.3 [facility] Comment on above: Order Comment: Speci men Type: BLOOD SPECIMENOrdering Facility: [facility] Address: [address] Performed By: #### 2 432-8, 2156-10 ####[facility] LABCLIA [id number] [place] [address] [place] Calcium [Mass/Vol] 9.7 mg/dL Normal 8.5-10.2 [facility] Comment on above: Order Comment: Speci men Type: BLOOD SPECIMENOrdering Facility: [facility] Address: [address] Performed By: #### 2 432-8, 2156-10 ####[facility] LABIA [id number] [place] [address] [place] Chloride [Moles/Vol] 104 mmol/L Normal 97-105 [facility] Comment on above: Order Comment: Speci men Type: BLOOD SPECIMENOrdering Facility: [facility] Address: [address] [place] [id number] Performed By: #### 2 4328, 2156-10 ####[facility] LABIA [id number] [place] [id number] [place] CO2 [Moles/Vol] 16 mmol/L Low 22-30 [facility] Comment on above: Order Comment: Speci men Type: BLOOD SPECIMENOrdering Facility: [facility] Address: [address] [place] [id number] Performed By: #### 2 43238, 2156-10 ####[facility] LABCLIA [id number] [place] [address] [place] Creatinine [Mass/Vol] 0.66 mg/dL Normal 0.58-0.96 [facility] Comment on above: Order Comment: Loly mcpherson Type: BLOOD SPECIMENOrdering Facility: [facility] Address: [address] [place] [address] Performed By: #### 2 4323-8, 2156-10 ####[facility] LABIA [id number] [place] [address] [place] ESTIMATED GLOMERULAR FILTRATION RATE 92 mL/min/1.73m??? Normal >=60 [facility] Comment on above: Order Comment: Loly mcpherson Type: BLOOD SPECIMENOrdering Facility: [facility] Address: [address] [place] [address] Result Comment: [place] mated Glomerular Filtration Rate (eGFR) is calculated [...] reflect actual GFR. Performed By: #### 2 4323-8, 2156-10 ####[facility] LABIA [id number] [place] [address] [place] Glucose [Mass/Vol] 123 mg/dL High 74-99 [facility] Comment on above: Order Comment: Loly mcpherson Type: BLOOD SPECIMENOrdering Facility: [facility] Address: [address] [place] [address] Result Comment: The [place] Diabetes Association (ADA) provides guidance for cutoff [...] Standards of Medical Care in Diabetes 2016, [place] Diabetes Association. Diabetes Care. 2016.39(Suppl 1). Performed By: #### 2 4328, 2156-10 ####[facility] LABCLIA [id number] [place] [address] [place] Potassium [Moles/Vol] 4.4 mmol/L Normal 3.7-5.1 [facility] Comment on above: Order Comment: Speci men Type: BLOOD SPECIMENOrdering Facility: [facility] Address: [address] [place] [address] Performed By: #### 2 4322-12, 2156-10 ####[facility] LABCLIA [id number] [place] [address] [place] Protein [Mass/Vol] 6.8 g/dL Normal 6.3-8.0 [facility] Comment on above: Order Comment: Speci men Type: BLOOD SPECIMENOrdering Facility: [facility] Address: [address] [place] [address] Performed By: #### 2 4322-12, 2156-10 ####[facility] LABCLIA [id number] [place] [address] [place] Sodium [Moles/Vol] 138 mmol/L Normal 136-144 [facility] Comment on above: Order Comment: Speci men Type: BLOOD SPECIMENOrdering Facility: [facility] Address: [address] [place] [address] Performed By: #### 2 4322-12, 2156-10 ####[facility] LABCLIA [id number] [place] [id number] [place] Urea nitrogen [Mass/Vol] 21 mg/dL Normal 7-21 [facility] Comment on above: Order Comment: Speci men Type: BLOOD SPECIMENOrdering Facility: [facility] Address: [address] [place] [address] Performed By: #### 2 4323-8, 2157-6 ####[facility] LABCLIA [id number] [address] HbA1c (Bld)on 12-01-2022 Average glucose Estimated from glycated hemoglobin (Bld) [Mass/Vol] 123 mg/dL Normal [facility] Comment on above: Order Comment: Loly mcpherson Type: BLOOD SPECIMENOrdering Facility: [facility] Address: [address] [place] [address] Result Comment: eAG: (Estimated average glucose) is a calculated value from HgbA1c and is utility sales representative of the average blood glucose level in the last 2-3 month period. Performed By: #### 5 5454-3 ####[facility] LABCLIA [id number] [address] HbA1c (Bld) [Mass fraction] 5.9 % High 4.3-5.6 [facility] Comment on above: Order Comment: Loly mcpherson Type: BLOOD SPECIMENOrdering Facility: [facility] Address: [address] [place] [address] Result Comment: Amer [place] Diabetes Association guidelines indicate that patients with HgbA1c in the range 5.7-6.4% are at increased risk for development of diabetes, and intervention by lifestyle modification may be beneficial. HgbA1c greater or equal to 6.5% is considered diagnostic of diabetes. Performed By: #### 5 5454-3 ####[facility] LABCLIA [id number] [address] CBC panel Auto (Bld)on 10-07 Erythrocyte distribution width (RBC) [Ratio] 13.8 % 11.5 - 15.0 % [facility] Hematocrit (Bld) [Volume fraction] 39.7 % 36.0 - 46.0 % [facility] Hemoglobin (Bld) [Mass/Vol] 12.0 g/dL 11.5 - 15.5 g/dL [facility] MCH (RBC) [Entitic mass] 28.3 pg 26. 0 - 34.0 pg [facility] MCHC (RBC) [Mass/Vol] 30.2 g/dL Low 30.5 - 36.0 g/dL [facility] MCV (RBC) [Entitic vol] 93.6 fL 80.0 - 100.0 fL [facility] Nucleated RBC (Bld) [#/Vol] 10*3/uL <0.01 k/uL [facility] Platelet mean volume (Bld) [Entitic vol] 10.9 fL 9.0 - 12.7 fL [facility] Platelets (Bld) [#/Vol] 351 10*3/uL 150 - 400 k/uL [facility] RBC (Bld) [#/Vol] 4.24 10*6/uL 3.90 - 5.2 0 m/uL [facility] WBC (Bld) [#/Vol] 12.56 10*3/uL High 3.70 - 11 .00 k/uL [facility] Vital Signs Date Time Vital Sign Value Performing Clinician Rodríguezi mirnay 01-10-2025 12:00-0400 Respiratory rate 16 /min NA Whitfield PA Work Phone: [facility] 01-10-2025 11:58-0400 Body temperature 98.1 [degF] NA Whitfield PA Work Phone: [facility] 01-10-2025 11:58-0400 Diastolic blood pressure 52 mm[Hg] NA Whitfield PA Work Phone: [facility] 01-10-2025 11:58-0400 Heart rate 80 /min NA Whitfield PA Work Phone: [facility] 01-10-2025 11:58-0400 SaO2% (BldA) [Mass fraction] 95 % NA Whitfield PA Work Phone: [facility] 01-10-2025 11:58-0400 Systolic blood pressure 140 mm[Hg] NA Whitfield PA Work Phone: [facility] 01-10-2025 05:37-0400 Body mass index (BMI) [Ratio] 26.7 kg/m2 NA Whitfield PA Work Phone: 2(433)273-655165 [place] [address] 01-10-2025 05:37-0400 Body weight 68.4 kg NA Whitfield PA Work Phone: 3(139)111-632665 [place] [address] 01-09-2025 10:38-0400 Body height 159.99 cm NA Whitfield PA Work Phone: 3(446)714-463265 [place] [address] 01-08-2025 12:00-0400 Diastolic blood pressure 70 mm[Hg] NA Whitfield PA Work Phone: 1(150)979-998965 [place] [address] 01-08-2025 12:00-0400 Heart rate 100 /min NA Whitfield PA Work Phone: 2(462)929-728765 [place] [address] 01-08-2025 12:00-0400 SaO2% (BldA) [Mass fraction] 100 % NA Whitfield PA Work Phone: 1(215)963-227165 [place] [address] 01-08-2025 12:00-0400 Systolic blood pressure 122 mm[Hg] NA Whitfield PA Work Phone: 1(981)202-429065 [place] [address] 01-08-2025 11:58-0400 Body temperature 98.3 [degF] NA Whitfield PA Work Phone: 3(253)473-555865 [place] [address] 01-08-2025 11:58-0400 Respiratory rate 18 /min NA Whitfield PA Work Phone: 9(716)404-313765 [place] [address] 01-08-2025 09:30-0400 Body height 160.02 cm NA Whitfield PA Work Phone: 9(771)918-332265 [place] [address] 01-08-2025 09:30-0400 Body mass index (BMI) [Ratio] 27.7 kg/m2 NA Whitfield PA Work Phone: 8(548)864-224465 [place] [address] 01-08-2025 09:30-0400 Body weight 71 kg NA Whitfield PA Work Phone: 1(058)262-824365 [place] [address] 07-13-2023 11:35-0500 Diastolic blood pressure 80 mm[Hg] NA Whitfield PA-C Work Phone: [facility] 07-13-2023 11:35-0500 Heart rate 93 /min NA Whitfield PA-C Work Phone: [facility] 07-13-2023 11:35-0500 Respiratory rate 16 /min NA Whitfield PA-C Work Phone: [facility] 07-13-2023 11:35-0500 SaO2% (BldA) [Mass fraction] 96 % NA Whitfield PA-C Work Phone: [facility] 07-13-2023 11:35-0500 Systolic blood pressure 134 mm[Hg] NA Whitfield PA-C Work Phone: [facility] 03-02-2023 10:43-0400 Body weight 71.67 kg NA Whitfield PA-C Work Phone: [facility] 03-02-2023 10:43-0400 Diastolic blood pressure 80 mm[Hg] NA Whitfield PA-C Work Phone: [facility] 03-02-2023 10:43-0400 Heart rate 83 /min NA Whitfield PA-C Work Phone: [facility] 03-02-2023 10:43-0400 Respiratory rate 16 /min NA Whitfield PA-C Work Phone: [facility] 03-02-2023 10:43-0400 SaO2% (BldA) [Mass fraction] 99 % NA Whitfield PA-C Work Phone: [facility] 03-02-2023 10:43-0400 Systolic blood pressure 138 mm[Hg] NA Whitfield PA-C Work Phone: [facility] 12-01-2022 10:38-0400 Body height 160 cm NA Whitfield PA-C Work Phone: [facility] 12-01-2022 10:38-0400 Body weight 70.31 kg NA Whitfield PA-C Work Phone: [facility] 12-01-2022 10:38-0400 Diastolic blood pressure 70 mm[Hg] NA Whitfield PA-C Work Phone: [facility] 12-01-2022 10:38-0400 Heart rate 89 /min NA Whitfield PA-C Work Phone: [facility] 12-01-2022 10:38-0400 SaO2% (BldA) [Mass fraction] 97 % NA Whitfield PA-C Work Phone: [facility] 12-01-2022 10:38-0400 Systolic blood pressure 116 mm[Hg] NA Whitfield PA-C Work Phone: [facility] 09-03-2022 10:08-0400 Body weight 66.68 kg NA Whitfield PA-C Work Phone: [facility] 09-03-2022 10:08-0400 Diastolic blood pressure 80 mm[Hg] NA Whitfield PA-C Work Phone: [facility] 09-03-2022 10:08-0400 Heart rate 91 /min NA Whitfield PA-C Work Phone: [facility] 09-03-2022 10:08-0400 Respiratory rate 16 /min NA Whitfield PA-C Work Phone: [facility] 09-03-2022 10:08-0400 SaO2% (BldA) [Mass fraction] 99 % NA Whitfield PA-C Work Phone: [facility] 09-03-2022 10:08-0400 Systolic blood pressure 132 mm[Hg] NA Whitfield PA-C Work Phone: [facility] 06-05-2022 10:15-0500 Body weight 72.58 kg NA Whitfield PA-C Work Phone: [facility] 06-05-2022 10:15-0500 Diastolic blood pressure 74 mm[Hg] NA Whitfield PA-C Work Phone: [facility] 06-05-2022 10:15-0500 Heart rate 88 /min NA Whitfield PA-C Work Phone: [facility] 06-05-2022 10:15-0500 Respiratory rate 18 /min NA Whitfield PA-C Work Phone: [facility] 06-05-2022 10:15-0500 SaO2% (BldA) [Mass fraction] 97 % NA Whitfield PA-C Work Phone: [facility] 06-05-2022 10:15-0500 Systolic blood pressure 120 mm[Hg] NA Whitfield PA-C Work Phone: [facility] 03-02-2022 10:21-0400 Body weight 67.95 kg NA Whitfield PA-C Work Phone: [facility] 03-02-2022 10:21-0400 Diastolic blood pressure 78 mm[Hg] NA Whitfield PA-C Work Phone: [facility] 03-02-2022 10:21-0400 Heart rate 84 /min NA Whitfield PA-C Work Phone: [facility] 03-02-2022 10:21-0400 Systolic blood pressure 126 mm[Hg] NA Whitfield PA-C Work Phone: [facility] 10-07-2021 08:06-0400 Body weight 76.66 kg NA Whitfield PA-C Work Phone: [facility] 10-07-2021 08:06-0400 Diastolic blood pressure 74 mm[Hg] NA Whitfield PA-C Work Phone: [facility] 10-07-2021 08:06-0400 Heart rate 77 /min NA Whitfield PA-C Work Phone: [facility] 10-07-2021 08:06-0400 SaO2% (BldA) [Mass fraction] 95 % NA Whitfield PA-C Work Phone: [facility] 10-07-2021 08:06-0400 Systolic blood pressure 128 mm[Hg] NA Whitfield PA-C Work Phone: [facility] Encounters Encounter Date Encounter Type Care Provider Facility Start: 01-17-2025 End: 01-17-2025 [facility] Facility:[facility] Start: 01-10-2025 Non-patient / Non-visit Dr. Adalid De La Rosa MD [facility] Work Phone: Start: 01-09-2025 Non-patient / Non-visit Dr. Adalid De La Rosa MD -[facility] Work Phone: Start: 01-08-2025 Non-patient / Non-visit Brnenen Kumar nd DO -[facility] Start: 01-08-2025 ambulatory Katy De La Rosa Facility :[facility] Start: 01-08-2025 End: 01-10-2025 Evaluation and management of inpatient Dr. Katy De La Rosa MD -Intensive Care Unit Work Phone: Start: 01-08-2025 Registered Referred Ishaan Bernabe MD [facility] Start: 01-08-2025 End: 01-08-2025 ambulatory Beena Whitfield PA Facility:[facility] Start: 11-15-2024 End: 11-15-2024 ambulatory Beena Whitfield PA Work Phone: [facility] Start: 11-15-2024 End: 11-15-2024 [facility] Start: 11-15-2024 End: 11-15-2024 ambulatory Ishaan CURTIS Facility:[facility] Start: 09-12-2024 End: 09-12-2024 ambulatory Beena Whitfield PA Work Phone: [facility] Work Phone: Start: 09-12-2024 End: 09-12-2024 [facility]ed [facility] Start: 09-12-2024 End: 09-12-2024 ambulatory M Kerri Whitfield PA Facility:[facility] Start: 08-29-2024 End: 08-29-2024 ambulatory Beena Whitfield PA Work Phone: [facility] Work Phone: Start: 08-29-2024 End: 08-29-2024 Departed Referred Ishaan AlvesRamón [facility] Start: 08-29-2024 Registered Referred Ishaan Bernabe MD [facility] Start: 08-29-2024 End: 08-29-2024 ambulatory Beena DAUGHERTY Facility:[facility] Start: 08-14-2024 End: 08-14-2024 ambulatory Beena DAUGHERTY Work Phone: [facility] Work Phone: Start: 08-14-2024 End: 08-14-2024 Departed Referred [facility] Start: 08-14-2024 End: 08-14-2024 ambulatory Beena DAUGHERTY Facility:[facility] Start: 05-16-2024 ambulatory Beena DAUGHERTY Fac ility:[facility] Start: 05-16-2024 Registered Referred Ishaan Bernabe [facility] Start: 10-19-2023 Telephone encounter Jose Miguel Fernandes Comment on above: Patient Update Start: 10-04-2023 Telephone encounter Jaquelin faith DERMATOLOGY SPECIALIST Family [facility] Comment on above: Orders Start: 09-10-2023 Refill Beena camp PA-C Work Phone: [facility] Comment on above: Refill Request Start: 07-28-2023 Telephone encounter Beena DAUGHERTY-C Work Phone: [facility] Nest[facility] Comment on above: Orders Patient Question Start: 07-15-2023 Telephone encounter Jose Miguel MARTINEZ Navigation Start: 07-13-2023 End: 07-13-2023 ambulatory Beena WHITFIELD Facility:[facility] Start: 07-13-2023 End: 07-13-2023 Patient encounter procedure Beena Whitfield PA-C Work Phone: [facility] Comment on above: Encounter for immuni [...] Telephone encounter Beena Whitfield PA-C Work Phone: [facility] Comment on above: Medication Problem Start: 03-30-2023 Refill Beena Hinkle conrado DAUGHERTY-C Work Phone: [facility] Comment on above: Refill Request Start: 03-11-2023 Telephone encounter Beena Kerri Whitfield PA-C Work Phone: [facility] Comment on above: Rx issue Start: 03-10-2023 End: 03-10-2023 ambulatory LIZZIE CARDOZA Facility:[facility] Start: 03-10-2023 End: 03-10-2023 Patient encounter procedure Lizzie Cardoza MD Work Phone: Ophthalmology Comment on above: Type 2 diabetes pam itus without retinopathy (HCC) (Primary Dx); Myasthenia gravis (HCC); Combined forms of age-related cataract of both eyes; Dry eye syndrome of both eyes Start: 03-10-2023 End: 03-10-2023 Subsequent hospital visit by physician Bone Density [facility] Work Phone: Radiology Comment on above: Asymptomatic postmen opausal status [Z78.0] Start: 03-02-2023 End: 03-02-2023 ambulatory Beena CALDERAKERRI NAHID Facility:[facility] Start: 03-02-2023 End: 03-02-2023 Patient encounter procedure Beena Kerri Whitfield PA-C Work Phone: [facility] Comment on above: Essential hypertensi on (Primary [...] Telephone encounter Beena Whitfield PA-C Work Phone: [facility] Comment on above: Patient Update Start: 12-01-2022 Telephone encounter Beena Kerri Whitfield PA-C Work Phone: [facility] Comment on above: Letter Start: 12-01-2022 End: 12-02-2022 ambulatory Beena WHITFIELD Facility:[facility] Start: 12-01-2022 End: 12-01-2022 Patient encounter procedure Beena Kerri Whitfield PA-C Work Phone: [facility] Comment on above: Essential hypertensi on (Primary [...] partial remission (HCC) Start: 11-13-2022 Refill Beena camp PA-C Work Phone: [facility] Comment on above: Refill Request Start: 09-03-2022 End: 09-03-2022 Patient encounter procedure Beena Whitfield PA-C Work Phone: [facility] Comment on above: Essential hypertensi on (Primary [...] pain, unspecified laterality Start: 07-31-2022 Refill Beena Hinkle on PA-C Work Phone: [facility] Comment on above: Refill Request Start: 07-06-2022 Refill Beena Hinkle on PA-C Work Phone: [facility] Comment on above: Refill Request Start: 06-19-2022 Telephone encounter Beena Whitfield PA-C Work Phone: [facility] Comment on above: Insurance Authorizat ion ([employer] ) Start: 06-05-2022 End: 06-05-2022 Patient encounter procedure Beena Whitfield PA-C Work Phone: [facility] Comment on above: Type 2 diabetes pam itus with diabetic neuropathy, without long-term current use of insulin ([facility]) (Primary Dx); Anxiety with depression; Anxiety; Chronic diarrhea; Chronic pain of both shoulders; Chronic hand pain, unspecified laterality; Myasthenia gravis (FORMERLY [facility]) Start: 06-02-2022 ambulatory Beena Hinkle on PA-C Work Phone: [facility] Comment on above: Dizziness Start: 05-14-2022 Refill Beena Hinkle on PA-C Work Phone: [facility] Comment on above: Refill Request Start: 05-08-2022 Refill Beena Hinkle on PA-C Work Phone: [address] [place] [address] Comment on above: Refill Request Start: 04-30-2022 Refill Beena Hinkle on PA-C Work Phone: [facility] Comment on above: Refill Request Start: 03-23-2022 Refill Beena Hinkle on PA-C Work Phone: [facility] Comment on above: Refill Request Start: 03-02-2022 Telephone encounter Beena Whitfield PA-C Work Phone: [facility] Comment on above: med error Start: 03-02-2022 End: 03-02-2022 Patient encounter procedure Beena Whitfield PA-C Work Phone: [facility] Comment on above: Essential hypertensi on [...] asthmatic bronchitis (HCC) Start: 01-27-2022 Refill Beena Kerri Hinkle on PA-C Work Phone: [facility] Comment on above: Refill Request Start: 01-06-2022 End: 01-06-2022 [facility] Beena Kerri Nahid [facility] Work Phone: [facility] Comment on above: Essential hypertensi on (Primary Dx); Mixed hyperlipidemia; Type 2 diabetes mellitus with diabetic neuropathy, without long-term current use of insulin (HCC); Polyneuropathy associated with underlying disease (HCC); Myasthenia gravis (HCC); Fibromyalgia; Chronic asthmatic bronchitis (HCC); Anxiety with depression; Recurrent major depressive disorder, in partial remission (HCC) Missed VV Start: 01-01-2022 Telephone encounter Beena Kerri Whitfield PA-C Work Phone: [facility] Comment on above: Medication Request Start: 11-26-2021 ambulatory Beena Hinkle on PA-C Work Phone: [facility] [place] Start: 11-19-2021 Refill Beena Hinkle on PA-C Work Phone: [facility] Comment on above: Refill Request Start: 11-13-2021 Refill Beena Hinkle on PA-C Work Phone: [facility] Comment on above: Refill Request Start: 10-27-2021 Refill Beena Hinkle on PA-C Work Phone: [facility] Comment on above: Refill Request Start: 10-07-2021 End: 10-07-2021 Patient encounter procedure Beena Kerri Whitfield [facility] Work Phone: [facility] Comment on above: Essential hypertensi on [...] for COVID-19 vaccine Start: 09-11-2021 ambulatory Beena Kerri [employer]inkle [employer] Work Phone: [facility] Comment on above: Cough Refill Request; Refi ll Request Start: 08-29-2021 Refill Beena Kerri Hinkle [employer] Work Phone: [facility] Comment on above: Prescription Refills Start: 07-03-2021 Telephone encounter Beena Kerri [employer] Work Phone: [facility] Comment on above: Appointment Procedures Date Procedure Procedure Detail Performing Clinician Start: 01-10-2025 Estimated creatinine clearance ADALID DAUGHERTY Work Phone: Start: 01-08-2025 Esophagogastroduodenoscopy ADALID DAUGHERTY Work Phone: Start: 01-08-2025 CT of abdomen and pelvis without contrast ADALID DAUGHERTY Work Phone: Start: 01-08-2025 Measurement of occult blood in stool specimen using immunoassay ADALID DAUGHERTY Work Phone: Start: 01-08-2025 Estimated creatinine clearance ADALID DAUGHERTY Work Phone: Start: 07-13-2023 INFLUENZA VACCINE, PRSV FREE, AGE 65+ YR, HIGH DOSE, QUADRIVALENT (FLUZONE HIGH-DOSE) Beena Kerri Whitfield PA-C Work Phone: Start: 07-13-2023 PFIZER-BIONTECH COVID-19 VACCINE ( SEASON) AGE 12+ YR Beena Kerri Whitfield PA-C Work Phone: Start: 03-10-2023 Dxa bone density study 1/> sites axial skel M Kerri Whitfield PA-C Work Phone: Start: 03-02-2022 INFLUENZA SEASONAL QUADRIVALENT HIGH DOSE AGE 65+ M Kerri Whitfield PA-C Work Phone: Start: 03-02-2022 PFIZER-BIONTECH COVID-19 BIVALENT BOOSTER VACCINE, AGE 12+ YR Beena Kerri Whitfield PA-C Work Phone: Start: 10-07-2021 PFIZER-BIONTECH COVID-19 VACCINE, AGE 12+ YR (BAILEY TOP) Beena Whitfield PA-C Work Phone: Plan of Treatment Date Care Activity Detail Author Start: 01-10-2025 Patient discharge [facility] Start: 01-09-2025 Following clinical pathway protocol [facility] Start: 01-09-2025 Transfusion of blood product [facility] Start: 01-09-2025 Administration of blood product [facility] Start: 01-09-2025 Prothrombin time [facility] Start: 01-09-2025 Application of intermittent pneumatic compression device [facility] Start: 01-08-2025 Following clinical pathway protocol [facility] Start: 01-08-2025 Consultation [facility] Start: 01-08-2025 Administration of blood product [facility] Start: 01-08-2025 Referral to gastroenterology service [facility] Start: 01-08-2025 Assessment of risk of venous thromboembolism [facility] Start: 01-08-2025 Continuous pulse oximetry [facility] Start: 01-08-2025 Insertion of catheter into peripheral vein [facility] Start: 01-08-2025 Measuring intake and output [facility] Start: 01-08-2025 Oxygen therapy [facility] Start: 01-08-2025 Providing care according to standard [facility] Start: 01-08-2025 Referral to occupational therapist [facility] Start: 01-08-2025 Referral to service [facility] Start: 01-08-2025 Vital signs measurements [facility] Start: 01-08-2025 End: 01-09-2025 [facility] Start: 01-08-2025 Admission procedure [facility] Start: 01-08-2025 Administration of blood product [facility] Start: 07-13-2024 Annual PCP Team Chronic Disease Visit Annual PCP Team Chronic Disease Visit [facility] Start: 03-10-2024 Glaucoma screening Dilated Retinal Exam [facility] Start: 03-10-2024 Hepatitis C antibody, confirmatory test Dilated Retinal Exam [facility] Start: 03-10-2024 End: 03-10-2024 Patient encounter procedure 03/10/2024 10:00 AM EDT Office Visit [facility] [address] [place] [address] Rosmery Conley, OD [address] [place] [address] 1 yr follow up with [facility] Comment on above: 1 yr follow up with [facility] Start: 03-02-2024 Annual PCP Team Chronic Disease Visit Annual PCP Team Chronic Disease Visit [facility] Start: 12-02-2023 ANNUAL PCP TEAM CHRONIC DISEASE VISIT ANNUAL PCP TEAM CHRONIC DISEASE VISIT [facility] Start: 12-02-2023 BP CONTROLLED (<130/80) BP CONTROLLED (<130/80) [facility] in Start: 11-11-2023 Covid-19 Vaccine ( season) Covid-19 Vaccine () [facility] Start: 11-09-2023 End: 11-09-2023 Patient encounter procedure 11/09/2023 10:20 AM EDT Office Visit [facility] [address] [facility] [place] [address] Beena Whitfield PA-C [address] [place] [address] 3 month follow up. Discuss need for wheelchair. Insurance requires [id number] [facility] Comment on above: 3 month follow up. Discuss need for whee lchair. Insurance requires [id number] Start: 10-11-2023 End: 01-10-2024 CBC W Auto Differential panel - Blood CBC + DIFF Lab Routine Myasthenia gravis (HCC) Recurrent major depressive disorder, in partial remission (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, without long-term current use of insulin (HCC) Expected: 10/11/2023, Expires: 01/10/2024 [facility] Work Phone: Comment on above: Expected: 10/11/2023, Expires: Start: 10-11-2023 End: 01-10-2024 Comprehensive metabolic 2000 panel - Serum or Plasma COMP METABOLIC PANEL Lab Routine Myasthenia gravis (HCC) Recurrent major depressive disorder, in partial remission (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, without long-term current use of insulin (FORMERLY [facility]) Expected: 10/11/2023, Expires: 01/10/2024 [facility] Work Phone: Comment on above: Expected: 10/11/2023, Expires: Start: 10-11-2023 End: 01-10-2024 Hemoglobin A1c in Blood HGB A1C Lab Routine Type 2 diabetes mellitus with diabetic neuropathy, without long-term current use of insulin (HCC) Expected: 10/11/2023, Expires: 01/10/2024 [facility] Work Phone: Comment on above: Expected: 10/11/2023, Expires: 4 Start: 10-11-2023 End: 01-10-2024 Thyrotropin [Units/volume] in Serum or Plasma TSH BLD Lab Routine Age-related physical debility Fatigue, unspecified type Expected: 10/11/2023, Expires: 01/10/2024 [facility] Work Phone: Comment on above: Expected: 10/11/2023, Expires: 4 Start: 10-11-2023 End: 10-11-2023 Patient encounter procedure 10/11/2023 11:20 AM EDT Office Visit [facility] [address] [place] [address] Beena Whitfield PA-C [address] [place] [address] 3 month follow up [facility] Comment on above: 3 month follow up Start: 09-04-2023 ANNUAL PCP TEAM CHRONIC DISEASE VISIT ANNUAL PCP TEAM CHRONIC DISEASE VISIT [facility] Start: 06-05-2023 3 comp foot exam completed DIABETIC FOOT EXAM [facility] Start: 06-05-2023 ANNUAL PCP TEAM CHRONIC DISEASE VISIT ANNUAL PCP TEAM CHRONIC DISEASE VISIT [facility] Start: 06-05-2023 BP CONTROLLED (<130/80) BP CONTROLLED (<130/80) [facility] inic Start: 06-05-2023 Diabetic foot examination Diabetic Foot Exam [facility] Start: 06-05-2023 Hepatitis B screening URINE ALBUMIN:CREATININE RATIO [facility] Start: 06-05-2023 Hepatitis B surface antibody level LDL CHOLESTEROL [facility] Start: 06-03-2023 End: 08-03-2023 Hemoglobin A1c in Blood HGB A1C Lab Routine Type 2 diabetes mellitus with diabetic neuropathy, without long-term current use of insulin (HCC) Expected: 06/03/2023, Expires: 08/03/2023 [facility] Work Phone: Comment on above: Expected: 06/03/2023, Expires: Start: 06-03-2023 Hemoglobin A1c measurement HbA1C [facility] Start: 06-03-2023 Hemoglobin A1c/Hemoglobin.total in Blood HBA1C [facility] Start: 06-02-2023 End: 08-02-2023 25-hydroxyvitamin D3 [Mass/volume] in Serum or Plasma VITAMIN D 25 HYDROXY Lab Routine Vitamin D deficiency Expected: 06/02/2023, Expires: 08/02/2023 [facility] Work Phone: Comment on above: Expected: 06/02/2023, Expires: 4 Start: 06-02-2023 End: 08-02-2023 CBC W Auto Differential panel - Blood CBC + DIFF Lab Routine Essential hypertension Type 2 diabetes mellitus with diabetic neuropathy, without long-term current use of insulin (HCC) Anxiety with depression Recurrent major depressive disorder, in partial remission (HCC) Expected: 06/02/2023, Expires: 08/02/2023 [facility] Work Phone: Comment on above: Expected: 06/02/2023, Expires: 4 Start: 06-02-2023 End: 08-02-2023 Comprehensive metabolic 2000 panel - Serum or Plasma COMP METABOLIC PANEL Lab Routine Essential hypertension Type 2 diabetes mellitus with diabetic neuropathy, without long-term current use of insulin (HCC) Anxiety with depression Recurrent major depressive disorder, in partial remission (HCC) Expected: 06/02/2023, Expires: 08/02/2023 [facility] Work Phone: Comment on above: Expected: 06/02/2023, Expires: 4 Start: 06-02-2023 End: 08-02-2023 Hemoglobin A1c in Blood HGB A1C Lab Routine Type 2 diabetes mellitus with diabetic neuropathy, without long-term current use of insulin (HCC) Expected: 06/02/2023, Expires: 08/02/2023 [facility] Work Phone: Comment on above: Expected: 06/02/2023, Expires: 4 Start: 06-02-2023 End: 08-02-2023 Lipid 1996 panel - Serum or Plasma LIPID PANEL BASIC Lab Routine Mixed hyperlipidemia Expected: 06/02/2023, Expires: 08/02/2023 [facility] Work Phone: Comment on above: Expected: 06/02/2023, Expires: 4 Start: 05-24-2023 Advance Directive Discussion Advance Directive Discussion [facility] Start: 03-02-2023 ANNUAL PCP TEAM CHRONIC DISEASE VISIT ANNUAL PCP TEAM CHRONIC DISEASE VISIT [facility] Start: 03-02-2023 BP CONTROLLED (<130/80) BP CONTROLLED (<130/80) [facility] in Start: 01-22-2023 Covid-19 Vaccine () Covid-19 Vaccine () [facility] Start: 01-22-2023 Influenza vaccination [facility] Start: 01-06-2023 ANNUAL PCP TEAM CHRONIC DISEASE VISIT ANNUAL PCP TEAM CHRONIC DISEASE VISIT [facility] Start: 12-03-2022 End: 02-02-2023 Creatine kinase [Enzymatic activity/volume] in Serum or Plasma CK CREATINE KINASE Lab Routine Mixed hyperlipidemia Expected: 12/03/2022, Expires: 02/02/2023 [facility] Work Phone: Comment on above: Expected: 12/03/2022, Expires: 3 Start: 12-03-2022 End: 02-02-2023 Hemoglobin A1c in Blood HGB A1C Lab Routine Type 2 diabetes mellitus with diabetic neuropathy, without long-term current use of insulin (HCC) Expected: 12/03/2022, Expires: 02/02/2023 [facility] Work Phone: Comment on above: Expected: 12/03/2022, Expires: Start: 12-03-2022 Hemoglobin A1c/Hemoglobin.total in Blood HBA1C [facility] Start: 12-01-2022 End: 01-31-2023 25-hydroxyvitamin D3 [Mass/volume] in Serum or Plasma VITAMIN D 25 HYDROXY Lab Routine Vitamin D deficiency Asymptomatic postmenopausal status Expected: 12/01/2022, Expires: 01/31/2023 [facility] Work Phone: Comment on above: Expected: 12/01/2022, Expires: 3 Start: 12-01-2022 End: 01-31-2023 CBC W Auto Differential panel - Blood CBC + DIFF Lab Routine Essential hypertension Gastroesophageal reflux disease, unspecified whether esophagitis present Anxiety with depression Thrombocytosis Neutrophilia Expected: 12/01/2022, Expires: 01/31/2023 [facility] Work Phone: Comment on above: Expected: 12/01/2022, Expires: 3 Start: 12-01-2022 End: 01-31-2023 Comprehensive metabolic 2000 panel - Serum or Plasma COMP METABOLIC PANEL Lab Routine Essential hypertension Type 2 diabetes mellitus with diabetic neuropathy, without long-term current use of insulin (HCC) Gastroesophageal reflux disease, unspecified whether esophagitis present Anxiety with depression Vitamin D deficiency Expected: 12/01/2022, Expires: 01/31/2023 [facility] Work Phone: Comment on above: Expected: 12/01/2022, Expires: 3 Start: 11-27-2022 ANNUAL PCP TEAM CHRONIC DISEASE VISIT ANNUAL PCP TEAM CHRONIC DISEASE VISIT [facility] Start: 11-27-2022 BP CONTROLLED (<130/80) BP CONTROLLED (<130/80) [facility] Start: 10-07-2022 ANNUAL PCP TEAM CHRONIC DISEASE VISIT ANNUAL PCP TEAM CHRONIC DISEASE VISIT [facility] Start: 10-07-2022 BP CONTROLLED (<130/80) BP CONTROLLED (<130/80) [facility] Start: 10-07-2022 SHINGRIX VACCINE (1 of 2) SHINGRIX VACCINE (1 of 2) [facility] Comment on above: Postponed from 1997 (Insurance Cov erage) Start: 10-07-2022 Urine microalbumin profile DTAP,TDAP,TD (1 - Tdap) [facility] Comment on above: Postponed from 1966 (Insurance Cov erage) Start: 09-25-2022 COLORECTAL CANCER SCREENING COLORECTAL CANCER SCREENING [facility] Start: 09-25-2022 FECAL OCCULT BLOOD FECAL OCCULT BLOOD [facility] Start: 09-03-2022 End: 11-03-2022 CBC W Auto Differential panel - Blood CBC + DIFF Lab Routine Essential hypertension Recurrent major depressive disorder, in partial remission (HCC) Anxiety with depression Expected: 09/03/2022, Expires: 11/03/2022 [facility] Work Phone: Comment on above: Expected: 09/03/2022, Expires: 3 Start: 09-03-2022 End: 11-03-2022 Comprehensive metabolic 2000 panel - Serum or Plasma COMP METABOLIC PANEL Lab Routine Essential hypertension Mixed hyperlipidemia Gastroesophageal reflux disease, unspecified whether esophagitis present Recurrent major depressive disorder, in partial remission (HCC) Anxiety with depression Expected: 09/03/2022, Expires: 11/03/2022 [facility] Work Phone: Comment on above: Expected: 09/03/2022, Expires: 3 Start: 09-03-2022 End: 11-03-2022 Lipid 1996 panel - Serum or Plasma LIPID PANEL BASIC Lab Routine Mixed hyperlipidemia Gastroesophageal reflux disease, unspecified whether esophagitis present Expected: 09/03/2022, Expires: 11/03/2022 [facility] Work Phone: Comment on above: Expected: 09/03/2022, Expires: 3 Start: 07-03-2022 ANNUAL PCP TEAM CHRONIC DISEASE VISIT ANNUAL PCP TEAM CHRONIC DISEASE VISIT [facility] Start: 07-03-2022 BP CONTROLLED (<130/80) BP CONTROLLED (<130/80) [facility] in Start: 07-03-2022 COVID-19 VACCINE (5 - Pfizer series) COVID-19 VACCINE (5 - Pfizer series) [facility] Start: 06-05-2022 End: 08-05-2022 Hemoglobin A1c in Blood [facility] Work Phone: Comment on above: Expected: 06/05/2022, Expires: 3 Start: 06-02-2022 End: 08-02-2022 CBC W Auto Differential panel - Blood CBC + DIFF Lab Routine Essential hypertension Expected: 06/02/2022, Expires: 08/02/2022 [facility] Work Phone: Comment on above: Expected: 06/02/2022, Expires: 3 Start: 06-02-2022 End: 08-02-2022 Comprehensive metabolic 2000 panel - Serum or Plasma COMP METABOLIC PANEL Lab Routine Essential hypertension Expected: 06/02/2022, Expires: 08/02/2022 [facility] Work Phone: Comment on above: Expected: 06/02/2022, Expires: 3 Start: 06-02-2022 End: 08-02-2022 Lipid 1996 panel - Serum or Plasma LIPID PANEL BASIC Lab Routine Mixed hyperlipidemia Expected: 06/02/2022, Expires: 08/02/2022 [facility] Work Phone: Comment on above: Expected: 06/02/2022, Expires: 3 Start: 05-24-2022 ADVANCE DIRECTIVE DISCUSSION ADVANCE DIRECTIVE DISCUSSION [facility] Start: 03-29-2022 Hemoglobin A1c/Hemoglobin.total in Blood HBA1C [facility] Start: 03-25-2022 Hepatitis C antibody, confirmatory test DILATED RETINAL EXAM [facility] Start: 02-07-2022 COVID-19 VACCINE (4 - Booster for Pfizer series) COVID-19 VACCINE (4 - Booster for Pfizer series) [facility] Start: 01-22-2022 Influenza vaccination INFLUENZA (#1) [facility] Start: 12-21-2021 Hepatitis B screening URINE ALBUMIN:CREATININE RATIO [facility] Start: 12-21-2021 Hepatitis B surface antibody level LDL CHOLESTEROL [facility] Start: 12-20-2021 3 comp foot exam completed DIABETIC FOOT EXAM [facility] Start: 10-07-2021 End: 12-07-2021 ALBUMIN/CREAT RATIO RND UR ALBUMIN/CREAT RATIO RND UR Lab Routine Type 2 diabetes mellitus with diabetic neuropathy, without long-term current use of insulin (HCC) Expected: 10/07/2021, Expires: 12/07/2021 [facility] Work Phone: Comment on above: Expected: 10/07/2021, Expires: 2 Start: 10-07-2021 End: 12-07-2021 Magnesium [Mass/volume] in Serum or Plasma [facility] Work Phone: Comment on above: Expected: 10/07/2021, Expires: 2 Start: 10-07-2021 End: 12-07-2021 VITAMIN D 25 HYDROXY [facility] Work Phone: Comment on above: Expected: 10/07/2021, Expires: 2 Start: 06-23-2021 Hemoglobin A1c/Hemoglobin.total in Blood HBA1C [facility] Start: 06-16-2021 COVID-19 VACCINE (3 - Booster for Pfizer series) COVID-19 VACCINE (3 - Booster for Pfizer series) [facility] Start: 05-24-2021 ADVANCE DIRECTIVE DISCUSSION ADVANCE DIRECTIVE DISCUSSION [facility] Start: 12-18-2020 COLORECTAL CANCER SCREENING COLORECTAL CANCER SCREENING [facility] Start: 12-18-2020 FECAL OCCULT BLOOD FECAL OCCULT BLOOD [facility] Start: 2012 PNEUMOVAX AGE 65 AND OVER WITH 5YR LOOKBACK (#1) PNEUMOVAX AGE 65 AND OVER WITH 5YR LOOKBACK (#1) [facility] Start: 2007 Hepatitis B Vaccine (1 of 3 - Risk 3-dose series) Hepatitis B Vaccine (1 of 3 - Risk 3-dose series) [facility] Start: 2007 RSV Vaccine (1 - 1-dose 60+ series) RSV Vaccine (1 - 1-dose 60+ series) [facility] Start: 1997 SHINGRIX VACCINE (1 of 2) SHINGRIX VACCINE (1 of 2) [facility] Start: 1992 COLOGUARD (FIT-DNA) COLOGUARD (FIT-DNA) [facility] Start: 1992 Colonoscopy COLONOSCOPY [facility] Start: [address] COLONOGRAPHY [facility] Start: 1992 SIGMOIDOSCOPY SIGMOIDOSCOPY [facility] Start: 1987 Mammography MAMMOGRAM [facility] Start: 1966 Urine microalbumin profile [facility] Start: 1965 BP CONTROLLED (<130/80) BP CONTROLLED (<130/80) [facility] in Start: 1965 HEPATITIS C SCREENING [facility] [facility]: 1951 PNEUMOCOCCAL: 65+ (1 - PCV) PNEUMOCOCCAL: 65+ (1 - PCV) [facility] Anion gap in Serum o r Plasma [facility] Anion gap in Serum o r Plasma [facility] Anion gap in Serum o r Plasma [facility] Anion gap in Serum o r Plasma [facility] Anion gap in Serum o r Plasma [facility] Anion gap in Serum o r Plasma [facility] Anion gap in Serum o r Plasma [facility] BUN/Creatinine ratio [facility] BUN/Creatinine ratio [facility] BUN/Creatinine ratio [facility] BUN/Creatinine ratio [facility] BUN/Creatinine ratio [facility] BUN/Creatinine ratio [facility] BUN/Creatinine ratio [facility] Calcium [Mass/volume ] in Serum or Plasma [facility] Calcium [Mass/volume ] in Serum or Plasma [facility] Calcium [Mass/volume ] in Serum or Plasma [facility] Calcium [Mass/volume ] in Serum or Plasma [facility] Calcium [Mass/volume ] in Serum or Plasma [facility] Calcium [Mass/volume ] in Serum or Plasma [facility] Calcium [Mass/volume ] in Serum or Plasma [facility] Carbon dioxide, tota l [Moles/volume] in Central venous blood [facility] Carbon dioxide, tota l [Moles/volume] in Central venous blood [facility] Carbon dioxide, tota l [Moles/volume] in Central venous blood [facility] Carbon dioxide, tota l [Moles/volume] in Central venous blood [facility] Carbon dioxide, tota l [Moles/volume] in Central venous blood [facility] Carbon dioxide, tota l [Moles/volume] in Central venous blood [facility] Carbon dioxide, tota l [Moles/volume] in Central venous blood [facility] Creatinine [Mass/vol ume] in Serum or Plasma [facility] Creatinine [Mass/vol ume] in Serum or Plasma [facility] Creatinine [Mass/vol ume] in Serum or Plasma [facility] Creatinine [Mass/vol ume] in Serum or Plasma [facility] Creatinine [Mass/vol ume] in Serum or Plasma [facility] Creatinine [Mass/vol ume] in Serum or Plasma [facility] Creatinine [Mass/vol ume] in Serum or Plasma [facility] End: 12-31-2023 DXA-AXIAL SKELETON DXA-AXIAL SKELETON Radiology Routine Vitamin D deficiency Asymptomatic postmenopausal status 1 Occurrences starting 12/01/2022 until 12/31/2023 [facility] Work Phone: Comment on above: 1 Occurrences starting 12/01/2022 until 12/31/2023 End: 03-31-2024 DXA-AXIAL SKELETON DXA-AXIAL SKELETON Radiology Routine Asymptomatic postmenopausal status 1 Occurrences starting 03/02/2023 until 03/31/2024 [facility] Work Phone: Comment on above: 1 Occurrences starting 03/02/2023 until 03/31/2024 Erythrocyte mean corpuscular volume determination [facility] Erythrocyte mean corpuscular volume determination [facility] Erythrocyte mean corpuscular volume determination [facility] Erythrocyte mean corpuscular volume determination [facility] Erythrocyte mean corpuscular volume determination [facility] Erythrocyte mean corpuscular volume determination [facility] Erythrocyte mean corpuscular volume determination [facility] Glucose [Mass/volume ] in Serum or Plasma [facility] Glucose [Mass/volume ] in Serum or Plasma [facility] Glucose [Mass/volume ] in Serum or Plasma [facility] Glucose [Mass/volume ] in Serum or Plasma [facility] Glucose [Mass/volume ] in Serum or Plasma [facility] Glucose [Mass/volume ] in Serum or Plasma [facility] Glucose [Mass/volume ] in Serum or Plasma [facility] Hematocrit [Volume Fraction] of Blood [facility] Hematocrit [Volume Fraction] of Blood [facility] Hematocrit [Volume Fraction] of Blood [facility] Hematocrit [Volume Fraction] of Blood [facility] Hematocrit [Volume Fraction] of Blood [facility] Hematocrit [Volume Fraction] of Blood [facility] Hematocrit [Volume Fraction] of Blood [facility] Hemoglobin [Mass/vol ume] in Blood [facility] Hemoglobin [Mass/vol ume] in Blood [facility] Hemoglobin [Mass/vol ume] in Blood [facility] Hemoglobin [Mass/vol ume] in Blood [facility] Hemoglobin [Mass/vol ume] in Blood [facility] Hemoglobin [Mass/vol ume] in Blood [facility] Hemoglobin [Mass/vol ume] in Blood [facility] Hemoglobin.gastroint indio nal.lower [Presence] in Stool by Immunoassay FECAL OCCULT BLOOD TEST Lab Routine Screening for colon cancer Ordered: 12/01/2022 [facility] Work Phone: Comment on above: Ordered: 12/01/2022 INR in Blood by Coagulation assay [facility] Leukocytes [#/volume ] in Blood [facility] Leukocytes [#/volume ] in Blood [facility] Leukocytes [#/volume ] in Blood [facility] Leukocytes [#/volume ] in Blood [facility] Leukocytes [#/volume ] in Blood [facility] Leukocytes [#/volume ] in Blood [facility] Leukocytes [#/volume ] in Blood [facility] Mean corpuscular hemoglobin concentration determination [facility] Mean corpuscular hemoglobin concentration determination [facility] Mean corpuscular hemoglobin concentration determination [facility] Mean corpuscular hemoglobin concentration determination [facility] Mean corpuscular hemoglobin concentration determination [facility] Mean corpuscular hemoglobin concentration determination [facility] Mean corpuscular hemoglobin concentration determination [facility] Mean corpuscular hemoglobin determination [facility] Mean corpuscular hemoglobin determination [facility] Mean corpuscular hemoglobin determination [facility] Mean corpuscular hemoglobin determination [facility] Mean corpuscular hemoglobin determination [facility] Mean corpuscular hemoglobin determination [facility] Mean corpuscular hemoglobin determination [facility] Measurement of renal function [facility] Measurement of renal function [facility] Measurement of renal function [facility] Measurement of renal function [facility] Measurement of renal function [facility] Measurement of renal function [facility] Measurement of renal function [facility] Neutrophil count [facility] Neutrophil count [facility] Neutrophil count [facility] Neutrophil count [facility] Neutrophil count [facility] Neutrophil count [facility] Neutrophil count [facility] Neutrophil percent differential count [facility] Neutrophil percent differential count [facility] Neutrophil percent differential count [facility] Neutrophil percent differential count [facility] Neutrophil percent differential count [facility] Neutrophil percent differential count [facility] Neutrophil percent differential count [facility] Patient Education EGD (Upper End oscopy): Post-op [facility] Work Phone: Platelets [#/volume] in Blood [facility] Platelets [#/volume] in Blood [facility] Platelets [#/volume] in Blood [facility] Platelets [#/volume] in Blood [facility] Platelets [#/volume] in Blood [facility] Platelets [#/volume] in Blood [facility] Platelets [#/volume] in Blood [facility] Potassium measurement [facility] Potassium measurement [facility] Potassium measurement [facility] Potassium measurement [facility] Potassium measurement [facility] Potassium measurement [facility] Potassium measurement [facility] Red blood cell count [facility] Red blood cell count [facility] Red blood cell count [facility] Red blood cell count [facility] Red blood cell count [facility] Red blood cell count [facility] Red blood cell count [facility] Red cell distributio n width determination [facility] Red cell distributio n width determination [facility] Red cell distributio n width determination [facility] Red cell distributio n width determination [facility] Red cell distributio n width determination [facility] Red cell distributio n width determination [facility] Red cell distributio n width determination [facility] End: 12-26-2022 Screening mammography bi 2-view breast inc cad EBONY SCREENING Radiology Routine Encounter for screening mammogram for breast cancer 1 Occurrences starting 11/26/2021 until 12/26/2022 [facility] Work Phone: Comment on above: 1 Occurrences starting 11/26/2021 until 12/26/2022 Serum chloride measurement [facility] Serum chloride measurement [facility] Serum chloride measurement [facility] Serum chloride measurement [facility] Serum chloride measurement [facility] Serum chloride measurement [facility] Serum chloride measurement [facility] Sodium measurement [facility] Sodium measurement [facility] Sodium measurement [facility] Sodium measurement [facility] Sodium measurement [facility] Sodium measurement [facility] Sodium measurement [facility] Urea nitrogen [Mass/volume] in Serum or Plasma [facility] Urea nitrogen [Mass/volume] in Serum or Plasma [facility] Urea nitrogen [Mass/volume] in Serum or Plasma [facility] Urea nitrogen [Mass/volume] in Serum or Plasma [facility] Urea nitrogen [Mass/volume] in Serum or Plasma [facility] Urea nitrogen [Mass/volume] in Serum or Plasma [facility] Urea nitrogen [Mass/volume] in Serum or Plasma [facility] Immunizations Immunization Date Immunization Notes Care Provider Milena helms 07-13-2023 COVID-19 vaccine, ag e 12+ yr, season ([employer]) ADALID Whitfield PA-C Work Phone: [facility] 07-13-2023 influenza (HD-IIV4) vaccine, age 65+ yr, high dose, quadrivalent, PF (FLUZONE HIGH-DOSE) NA Whitfield PA-C Work Phone: [facility] 12-01-2022 pneumococcal (PCV20) vaccine, 20 valent (PREVNAR 20) NA Whitfield PA-C Work Phone: [facility] 12-01-2022 pneumococcal Conjuga te, unspecified formulation NA Whitfield PA-C Work Phone: [facility] Work Phone: 03-02-2022 COVID-19 booster vaccine, age 12+ yr, bivalent ([employer]Book) NA Whitfield PA-C Work Phone: [facility] 03-02-2022 influenza, high-dose , quadrivalent vaccine (FLUZONE HIGH DOSE QUADRIVALENT) NA Whitfield PA-C Work Phone: [facility] 03-02-2022 influenza virus vaccine, unspecified formulation NA Whitfield PA-C Work Phone: [facility] 10-07-2021 COVID-19 vaccine, ag e 12+ yr ([employer]NTECH - BAILEY TOP) NA Whitfield PA-C Work Phone: [facility] 04-01-2021 influenza, high-dose , quadrivalent vaccine (FLUZONE HIGH DOSE QUADRIVALENT) NA Whitfield PA-C Work Phone: [facility] 01-14-2021 COVID-19 vaccine, ag e 12+ yr (P[employer]ZER-BIONTECH - PURPLE TOP) NA Whitfield PA-C Work Phone: [facility] 12-20-2020 COVID-19 vaccine, ag e 12+ yr (PFIZER-BIONTECH - PURPLE TOP) NA Whitfield PA-C Work Phone: [facility] 03-28-2020 influenza, high dose seasonal, preservative-free NA Whitfield PA-C Work Phone: [facility] 03-28-2020 influenza, injectabl e, quadrivalent, preservative free NA Whitfield PA-C Work Phone: [facility] 02-24-2019 influenza, high dose seasonal, preservative-free NA Whitfield PA-C Work Phone: [facility] Work Phone: 03-24-2000 influenza, seasonal, injectable NA Whitfield PA-C Work Phone: [facility] 03-24-1998 pneumococcal vaccine , unspecified formulation NA Whitfield PA-C Work Phone: [facility] Payers Date Payer Category Payer Unknown [id number] 2024 Unknown [id number] 2024 Unknown [id number] 2024 Self-pay 2021 Medicare MMO MEDICARE MMO MEDADVANTAGE [employer] [id number] 2021-Present [phone] [address] [place] [address] [employer] [id number] 2021 Medicare MMO MEDICARE MMO MEDADVANTAGE O [id number] 2021-Present [phone] [address] [place] [address] [employer] [id number] 2021 Unknown [id number] Medicare [id number] Unknown [id number] Unknown [id number] Unknown [id number] Unknown [id number] Unknown [id number] Unknown [id number] Unknown [id number] Unknown [id number] Unknown [id number] Unknown [id number] Unknown [id number] Unknown [id number] Social History Date Type Detail Facility Start: 12-05-2018 End: 01-08-2025 Tobacco smoking status NHIS Ex-smoker [facility] Work Phone: Start: 12-05-2018 End: 03-02-2022 Tobacco use and exposure Smokeless tobacco non-user [facility] Work Phone: Start: 1945 Sex Assigned At Not on file C [facility] Start: 09-27-2021 End: 03-02-2022 Exposure to SARS-CoV-2 (event) Not sure [facility] History of tobacco use Current smoker [facility] Work Phone: Start: 12-22-2021 End: 01-01-2022 Exposure to SARS-CoV-2 (event) Yes [facility] Start: 01-06-2022 History SDOH Alcohol Frequency 1 [facility] Start: 01-06-2022 History SDOH Alcohol Std Drinks 0 [facility] Start: 01-06-2022 History SDOH Social Connections Phone 5 [facility] Start: 01-06-2022 History SDOH Social Connections Get Together 2 [facility] Start: 01-06-2022 History SDOH Social Connections Living 4 [facility] Start: 01-05-2022 End: 12-01-2022 History of Social function [facility] Start: 01-05-2022 End: 12-01-2022 Social connection and isolation panel [facility] Do you belong to any clubs or organizations such as latter-day groups, unions, fraternal or athletic groups, or school groups? No [facility] Are you now , , , , never or living with a partner? [facility] How often to you hav e a drink containing alcohol? Never [facility] How many standard dr inks containing alcohol do you have on a typical day? Patient does not drink [facility] (I/We) worried laury soriano (my/our) food would run out before (I/we) got money to buy more. Never true [facility] Start: 08-31-2024 End: 09-19-2024 Sex Female (finding) [facility] Start: 1945 Sex Assigned At Female W [facility] Medical Equipment Procedure Code Equipment Code Equipment Origin al Text Equipment Identifier Dates EGD, with monitored anesthesia care [employer] FDA Start: 01-08-2025 Goals Date Patient Goal Desired Activity /State Functional Status Date Assessment Result Facility 01-10-2025 Functional status Bedrest [facility] Work Phone: Mental Status Date Assessment Result Facility 01-10-2025 Cognitive function Voice/Name [facility] Work Phone: 01-08-2025 Cognitive function Level Of Cons ciousness Awake;Alert;Appropriate;Follow s Commands [facility] Work Phone: Clinical Notes 07-03-2021 to 01-10-2025 Note Date & Type Note Facility 01-10-2025 Discharge summary Note Date/Time January 10, 2025 2:05pm [facility] Medical Records Department [address] [place] [address] Discharge Summary 01/10/25 1347 MR#: [id number] Acct: [id number] Name: SADE RUSH Rep #:[id number] : 1945 79 From: Katy De La Rosa MD PCP: Dr. Ishaan Bernabe MD Status:ADM IN Location: [place] [id number] Providers Date of Admission: 01/08/25 Date of Discharge: 01/10/25 Primary Care Physician: Dr. Ishaan Bernabe MD Consultations 01/08/25 13:40 Consult: Gastroenterology Routine Consulting Provider: [facility] Reason for Consult: acute on chronic anemia EMERGENT Consult: No Notified: Yes Date Notified: 01/08/25 Time Notified: 13:41 Method of Notification: Text 01/08/25 13:42 Consult: Take Down Sorter / Pulmonary Medicine Routine Consulting Provider: [facility]ists/Pulmonary Med Reason for Consult: acute on chronic anemia EMERGENT Consult: No Notified: Yes Date Notified: 01/08/25 Time Notified: 13:54 Method of Notification: Answering Service Reason For Visit: ACUTE ON CHRONIC ANEMIA DUE TO GI BLEED Diagnosis Discharge Diagnosis (1) Acute anemia: Status: Acute Code(s): D64.9 - Anemia, unspecified (2) GI bleed: Status: Acute Code(s): K92.2 - Gastrointestinal hemorrhage, unspecified Plan #Acute on chronic anemia due to GI bleed * admitted with a complaint of anemia, per labs done in her SNF. She admitted to melena stools but denied any hematochezia, hematemesis or coffee ground emesis * Hb was 5.6 on admission. S/p transfusion of 2 units of packed red blood cells. Hemoglobin 7.1 this morning. * stool for occult blood positive. * She did have the CT of the abdomen and pelvis which showed a left adnexal cyst collection and further characterization with ultrasound recommended. 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 * Continue the Protonix drip for another 24 hours. Placed on Carafate 3 times daily. * Transfused with 1 more unit of packed red blood cell as hemoglobin is only 7.1. * Gastroenterology on board. Transfer out of ICU to U. * * #Hypertension: On amlodipine 10 mg daily. #History of myasthenia gravis: on pyridostigmine. Stable. #History of depression: On sertraline #History of chronic pain syndrome: On [place] at home. #History of chronic migraines without aura: On sumatriptan #DVT prophylaxis: SCDs. no anticoagulation due to anemia. COde status: full code * Disposition: Transfer to PCU today. Medications at Discharge Home Medications montelukast 10 mg tablet 10 mg PO DAILY ALLERGIES 05/04/19 sertraline 100 mg tablet 100 mg PO DAILY DEPRESSION 05/04/19 albuterol sulfate 90 mcg/actuation aerosol inhaler 2 puff inhalation Q4H PRN shortness of breath or wheezing 10/22/23 budesonide-formoterol HFA 80 mcg-4.5 mcg/actuation aerosol inhaler 2 puff inhalation BID DYSPNEA 10/22/23 estradiol 0.5 mg tablet 0.5 mg PO DAILY POSTMENOPAUSAL 10/22/23 pyridostigmine bromide 60 mg tablet 60 mg PO Q8H FOR MUSCLE STRENGTH 10/22/23 sumatriptan succinate 100 mg tablet 100 mg PO PRN MIGRAINE 10/22/23 cholecalciferol (vitamin D3) 25 mcg (1,000 unit) capsule (Vitamin D3) 2,000 unitPO DAILY supplement 10/26/23 amlodipine 10 mg tablet 10 mg PO DAILY HTN #0 tabs 10/27/23 acetaminophen 325 mg tablet 650 mg PO Q6H PRN pain 01/08/25 cromolyn 4 % eye drops 2 drp ophthalmic (eye) Q6H PRN VERNAL CONJUNCTIVITIS 01/08/25 fluticasone propionate 50 mcg/actuation nasal spray,suspension 1 spray intranasal Q12H ALLERGY SYMPTOM 01/08/25 hydrocodone-acetaminophen 5-325mg 5mg-325mg 1 tab PO Q6H PRN Pain 5-10 Or Fever > 100.7 F 01/08/25 lidocaine 4 % topical patch (Aspercreme (lidocaine)) 1 patch topical DAILY PRN pain 01/08/25 loperamide 2 mg capsule 2 mg PO Q4H PRN DIARRHEA 01/08/25 loratadine 10 mg tablet (Allerclear) 10 mg PO DAILY ALLERGIES 01/08/25 melatonin 3 mg tablet 3 mg PO PRN Insomnia 01/08/25 naphazoline-glycerin 0.03 %-0.5 % eye drops (Clear Eyes Cooling Comfort) 2 drp ophthalmic (eye) Q4H PRN ITCHY EYES 01/08/25 ondansetron HCl 4 mg tablet 4 mg PO Q6H PRN nausea and vomiting 01/08/25 simethicone 125 mg tablet (Bicarsim Forte) 125 mg PO Q8H PRN abdominal distention 01/08/25 vit A 300 mcg-C 200 mg-E 27 mg-lutein 2 mg and minerals tablet (I-Hernan) 1 tab PODAILY VERNAL CONJUNCTIVITIS 01/08/25 pantoprazole 40 mg tablet,delayed release 40 mg PO BID #60 tabs 01/10/25 sucralfate 1 gram tablet (Carafate) 1 g PO TID #90 tabs 01/10/25 Hospital Course Operations None Procedures EGD Summary of Care Provided Minutes Spent on Discharge: 55 Hospital Course: SADE RUSH, is a 79 F with a PMH as outlined who presents with a complaint ofblack, tarry stools. Her Hb was down to 5.6. She has a history of myasthenia gravis and repeated GI bleeds in the past, requiring blood transfusion. She saysshe last had a colonoscopy and EGD in 2000 in [place], but has refused any since. She denied any abdominal pain, fever or chills, any coffee-ground emesisor any bright red bleeding per rectum. She denies any weight loss. Review of systems otherwise negative. Vitals in the ED were temp of 98.3F, CO of 100, BP of 120/80, RR of 18, and she was saturating at 94% on room air. CBC showed hemoglobin of 5.6 with a WBC of 11.6 and platelets of 350. INR is 1.1. Chemistry shows sodium of 142 potassiumof 4.2 and bicarb of 23.6. Creatinine was 0.61. CT abdomen and pelvis was ordered by the ED doctor. Patient refused. When I reviewed patient's I spoke to her extensively about this and informed her that if there was any active GI bleeding source that could be taken care of by interventional radiology, the CT a abdomen and pelvis would help detect this. Patient was initially with lactateand said she would not do it because she felt it was just adding to her medical course. I explained to her that she did have insurance so this could cover it. However she wanted to know exactly how much it would cost. I explained to her that I did not have the information about exactly how much the CT would cause but I felt it was medically necessary under the circumstances. Patient then reluctantly agreed and I did speak to the ED doctor about ordering this. However patient subsequently declined this. She has been admitted to the ICU guido managed for acute on chronic anemia due to GI bleed. She was transfused with1 unit of packed red blood cells in the ED. Gastroenterology was consulted and she was transfused with one more unit of PRBC. She had EGD which showed normal esophagus, no gross lesions in the stomach and a single, bleeding angiodysplastic lesion in the duodenum treated with a heater probe, and a clip was placed. The protonix drip was continued for another 24 hours and she was switched to pO protonix. She was transfused with a third unit of PRBC. She remained stable and her Hb was 8.6 prior to discharge. She was switched to PO protonix 40mg bid and also placed on carafate tid. She is to follow up with her PCP and bath house attendant within 1-2 weeks. Patient seen and examined. She had no active complaints and had an uneventful night. Review of systems is otherwise negative. Labs and vitals reviewed. Home meds reviewed and reconciled. Patient is refusing to take iron tablets and so she was advised to eat a diet rich in iron. Physical Exam Const alert, oriented x3 and no apparent distress General Appearance: cooperative, comfortable and well kempt Exam Limitations: no limitations HEENT normocephalic, head/scalp atraumatic, hearing grossly normal bilaterally and moist oral mucous membranes Mouth: oral and palatal mucosa normal Eyes EOMs intact bilaterally and conjunctivae normal Neck supple and no JVD Resp normal respiratory effort, normal air movement, no use of accessory muscles and clear to auscultation bilaterally Resp Narrative: on room air. Cardio regular rate, regular rhythm, S1 normal heart sound, S2 normal heart sound and no murmurs GI normal to inspection, nondistended, normoactive bowel sounds, soft to palpation,non-tender and non-distended Extremity normal to inspection General Extremity: no tenderness to palpation of joints or extremities Neuro oriented x3 and CN's II-XII intact bilaterally Neuro Narrative: has chronic bilateral LE weakness due to myasthenia gravis Sensorium / Orientation: awake and alert Motor Exam: general weakness Psych affect normal Appearance: appropriate Weight / BMI Weight Weight: 150 lb 12.739 oz Body Mass Index (BMI) 26.7 ABG / Lab / Microbiology Data 01/10/25 04:51 01/10/25 04:51 Laboratory: Laboratory Results - last 24 hr 01/08/25 09:39: Crossmatch See Detail 01/08/25 09:39: Crossmatch See Detail 01/10/25 04:51: WBC 11.0, RBC 2.76 L, Hgb 8.6 L, Hct 25.5 L, MCV 92.4, MCH 31.2,MCHC 33.7, RDW Std Deviation 44.7 H, RDW Coeff of Meir 13.8, Plt Count 284, MPV 10.9, Immature Gran % (Auto) 0.600, Neut % (Auto) 70.6 H, Lymph % (Auto) 18.0 L,Jera[place] % (Auto) 7.9, Eos % (Auto) 2.4, Baso % (Auto) 0.5, Absolute Neuts (auto) 7.7, Absolute Lymphs (auto) 1.97, Nucleated RBC % 0, Sodium 139, Potassium 3.6, Chloride 106, Carbon Dioxide 24.0, Anion Gap 9, BUN 7, Creatinine 0.50 L, Estim Creat Clear Calc 53.38, Est GFR (MDRD) Non-Af 96, BUN/Creatinine Ratio 14.9, Glucose 94, Calcium 8.6 Microbiology: Microbiology 01/08/25 10:42 Stool Stool Occult Blood (RUTH ANN) - Final Occult Blood Positive D/C Instructions Discharge Activity: Return to Normal Activity DC O2, CPAP, BIPAP Needs Home O2 Discharge instructions: No DC home with Oxygen: No Meaningful Use Info Meaningful Use Meaningful Use Diagnoses (Choose all that apply): None applicable Discharge Plan Admission Admit Date/Time: 01/08/25 12:08 Primary Reason for Your Visit: acute upper GI bleed Attending Provider: Katy De La Rosa Primary Care Provider: Ishaan Bernabe Consulting Providers: Eric López; Cortez Ramos; Adan Rosa; Nicholas Graham; Jesus Clemens; Bishop Wheeler; Aidan Arteaga; Lashawn Pierce; Sina Duarte; Fidel Benoit; Zeb Dubose; Linnea Valentino; Sinai Gurrola; Eliza Ha; Joseph Taylor; Red Lyles; Marquise Montano; Christiano Palmer; Nayla Mays; Ghada Meyers; Joseph Montiel; Moses Turner; Mynor Fields Instructions Patient Instructions: EGD (Upper Endoscopy): Post-op Additional Instructions / Restrictions: eat a diet rich in iron foods Discharge Orders/Prescriptions Prescriptions: New pantoprazole 40 mg Tablet,Delayed Release (Dr/Ec) 40 mg PO BID Qty: 60 2RF sucralfate [Carafate] 1 gram tablet 1 g PO TID Qty: 90 2RF Continued sertraline 100 MG tablet 100 mg PO DAILY montelukast 10 MG tablet 10 mg PO DAILY albuterol sulfate 90 mcg/actuation HFA aerosol inhaler 2 puff inhalation Q4H PRN (Reason: shortness of breath or wheezing) pyridostigmine bromide 60 mg tablet 60 mg PO Q8H estradiol 0.5 mg tablet 0.5 mg PO DAILY budesonide-formoterol 80-4.5 mcg/actuation HFA aerosol inhaler 2 puff INHALATION BID sumatriptan succinate 100 mg tablet 100 mg PO PRN cholecalciferol (vitamin D3) [Vitamin D3] 25 mcg (1,000 unit) capsule 2,000 unit PO DAILY amlodipine 10 mg Tablet 10 mg PO DAILY Qty: 0 0RF acetaminophen 325 mg tablet 650 mg PO Q6H PRN (Reason: pain) Clear Eyes Cooling Comfort 0.03-0.5 % drops 2 drp ophthalmic (eye) Q4H PRN (Reason: ITCHY EYES) cromolyn 4 % drops 2 drp ophthalmic (eye) Q6H PRN (Reason: VERNAL CONJUNCTIVITIS) fluticasone propionate 50 mcg/actuation spray,suspension 1 spray INTRANASAL Q12H I-Hernan 300 mcg-200 mg-27 mg-2 mg tablet 1 tab PO DAILY Rx Instructions: administer after a meal loratadine [Allerclear] 10 mg tablet 10 mg PO DAILY lidocaine [Aspercreme (lidocaine)] 4 % adhesive patch,medicated 1 patch topical DAILY PRN (Reason: pain) Rx Instructions: LEFT HAND AND LEFT SHOULDER Bicarsim Forte 125 mg tablet 125 mg PO Q8H PRN (Reason: abdominal distention) ondansetron HCl 4 mg tablet 4 mg PO Q6H PRN (Reason: nausea and vomiting) loperamide 2 mg Capsule 2 mg PO Q4H PRN (Reason: DIARRHEA) hydrocodone-acetaminophen 5-325 mg Tablet 1 tab PO Q6H PRN (Reason: Pain 5-10 Or Fever > 100.7 F) melatonin 3 mg Tablet 3 mg PO PRN Discontinued naproxen sodium [Aleve] 220 mg capsule 220 mg PO BID PRN (Reason: pain) Rx Instructions: HOLD FROM 01/08/25 TO 01/15/25 pantoprazole [Protonix] 40 mg tablet,delayed release (DR/EC) 40 mg PO DAILY Referrals / Follow Up: Ishaan Bernabe MD [Primary Care Provider] - Within 1 Week Brennen Foy DO [Med Staff - Active Staff] - Within 2 Weeks Beena Whitfield PA [Non-Staff] - Within 1 Week Disposition Disposition (needs filled in before D/C Order can be placed): Residential Facility Charges/Coding Visit Charges Inpatient E&M: 18721 Disch Hosp >30min 01/10/25 1405 <Electronically signed by Katy De La Rosa MD> Cosigner Signature (if applicable): CC: Dr. Ishaan Bernabe MD; Dr. Katy De La Rosa MD~ Signed [facility] Work Phone: 1(605) 946-552908-20-2025 Discharge summary Author [facility] Note Date/Time January 10, 2025 12 :09pm [facility] Medical Records Department [address] [place] [address] [facility] MR#: [id number] Acct: [id number] Name: ASDE RUSH Rep #:[id number] : 1945 79 From: Katy De La Rosa MD PCP: Dr. Ishaan Bernabe MD Status:ADM IN Certification of patient admission REQUIRED AT TIME OF ADMISSION. I CERTIFY THAT POST-HOSPITAL ECF SERVICES ARE REQUIRED TO BE GIVEN ON AN IN-PATIENT BASIS BECAUSE OF THE ABOVE NAMED PATIENT'S NEED FOR INTERMEDIATE CARE ON A CONTINUING BASIS FOR THE CONDITION(S) FOR WHICH HE/SHE WAS RECEIVING IN-PATIENT HOSPITAL SERVICES PRIOR TO HIS/HER TRANSFER TO THE [facility]. 01/10/25 1209<Electronically signed by Katy De La Rosa MD> Diet Diet Order/Speech Therapy: INPATIENT Hospital Diet / Speech Therapy Order(s) 01/10/25 08:40 Diet: Regular - General Routine Orders/Code Status Enema Type: Fleetz Enema Frequency: Daily PRN Suppository Frequency: Daily PRN DC O2, CPAP, BIPAP needs Home O2 Discharge instructions: No Therapies Weight Bearing: Weight bearing as tolerated Physical Therapy: Eval and Treat Occupational Therapy: Eval and Treat Problem/Diagnosis (1) Acute anemia: Status: Acute Code(s): D64.9 - Anemia, unspecified (2) GI bleed: Status: Acute Code(s): K92.2 - Gastrointestinal hemorrhage, unspecified Plan #Acute on chronic anemia due to GI bleed * admitted with a complaint of anemia, per labs done in her SNF. She admitted to melena stools but denied any hematochezia, hematemesis or coffee ground emesis * Hb was 5.6 on admission. S/p transfusion of 2 units of packed red blood cells. Hemoglobin 7.1 this morning. * stool for occult blood positive. * She did have the CT of the abdomen and pelvis which showed a left adnexal cyst collection and further characterization with ultrasound recommended. 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 * Continue the Protonix drip for another 24 hours. Placed on Carafate 3 times daily. * Transfused with 1 more unit of packed red blood cell as hemoglobin is only 7.1. * Gastroenterology on board. Transfer out of ICU to PCU. * * #Hypertension: On amlodipine 10 mg daily. #History of myasthenia gravis: on pyridostigmine. Stable. #History of depression: On sertraline #History of chronic pain syndrome: On [place] at home. #History of chronic migraines without aura: On sumatriptan #DVT prophylaxis: SCDs. no anticoagulation due to anemia. COde status: full code * Disposition: Transfer to PCU today. Allergies/Procedures Done in Hospital Allergies Beta-Blockers (Beta-Adrenergic Bloc Allergy (Severe, Verified 10/22/23 12:02) Other M PRAMOD SANCHEZ Horse/Equine Containing Products Adverse Reaction (Verified 10/22/23 12:00) NEEDS FOLLOW-UP Sugars, Metabolically Active Adverse Reaction (Verified 10/22/23 12:00) Unknown Procedures: None Type of Care/Length of Stay Estimated LOS: Convalescent Care Less Than 30 days Type of Care Needed: Skilled Rehab Potential: Fair Prognosis: Fair Additional Orders/Day of Discharge Day of Discharge: 01/10/25 Dietary and Speech Recommendations Dietitian Recommendations/Changes: Recommend advanced diet as tolerated to regular. Will monitor weight trends. Discharge Plan Admission Admit Date/Time: 01/08/25 12:08 Primary Reason for Your Visit: acute upper GI bleed Attending Provider: Katy De La Rosa Primary Care Provider: Ishaan Bernabe Consulting Providers: Eric López; Cortez Ramos; Adan Rosa; Nicholas Graham; Jesus Clemens; Bishop Wheeler; Aidan Arteaga; Lashawn Pierce; Sina Duarte; Fdiel Benoit; Zeb Dubose; Linnea Valentino; Sinai Gurrola; Eliza Ha; Joseph Taylor; Red Lyles; Marquise Montano; Christiano Palmer; Nayla Mays; Ghada Meyers; Joseph Montiel; Moses Turner; Mynor Fields Instructions Patient Instructions: EGD (Upper Endoscopy): Post-op Additional Instructions / Restrictions: eat a diet rich in iron foods Discharge Orders/Prescriptions Prescriptions: New pantoprazole 40 mg Tablet,Delayed Release (Dr/Ec) 40 mg PO BID Qty: 60 2RF sucralfate [Carafate] 1 gram tablet 1 g PO TID Qty: 90 2RF Continued sertraline 100 MG tablet 100 mg PO DAILY montelukast 10 MG tablet 10 mg PO DAILY albuterol sulfate 90 mcg/actuation HFA aerosol inhaler 2 puff inhalation Q4H PRN (Reason: shortness of breath or wheezing) pyridostigmine bromide 60 mg tablet 60 mg PO Q8H estradiol 0.5 mg tablet 0.5 mg PO DAILY budesonide-formoterol 80-4.5 mcg/actuation HFA aerosol inhaler 2 puff INHALATION BID sumatriptan succinate 100 mg tablet 100 mg PO PRN cholecalciferol (vitamin D3) [Vitamin D3] 25 mcg (1,000 unit) capsule 2,000 unit PO DAILY amlodipine 10 mg Tablet 10 mg PO DAILY Qty: 0 0RF acetaminophen 325 mg tablet 650 mg PO Q6H PRN (Reason: pain) Clear Eyes Cooling Comfort 0.03-0.5 % drops 2 drp ophthalmic (eye) Q4H PRN (Reason: ITCHY EYES) cromolyn 4 % drops 2 drp ophthalmic (eye) Q6H PRN (Reason: VERNAL CONJUNCTIVITIS) fluticasone propionate 50 mcg/actuation spray,suspension 1 spray INTRANASAL Q12H I-Hernan 300 mcg-200 mg-27 mg-2 mg tablet 1 tab PO DAILY Rx Instructions: administer after a meal loratadine [Allerclear] 10 mg tablet 10 mg PO DAILY lidocaine [Aspercreme (lidocaine)] 4 % adhesive patch,medicated 1 patch topical DAILY PRN (Reason: pain) Rx Instructions: LEFT HAND AND LEFT SHOULDER Bicarsim Forte 125 mg tablet 125 mg PO Q8H PRN (Reason: abdominal distention) ondansetron HCl 4 mg tablet 4 mg PO Q6H PRN (Reason: nausea and vomiting) loperamide 2 mg Capsule 2 mg PO Q4H PRN (Reason: DIARRHEA) hydrocodone-acetaminophen 5-325 mg Tablet 1 tab PO Q6H PRN (Reason: Pain 5-10 Or Fever > 100.7 F) melatonin 3 mg Tablet 3 mg PO PRN Discontinued naproxen sodium [Aleve] 220 mg capsule 220 mg PO BID PRN (Reason: pain) Rx Instructions: HOLD FROM 01/08/25 TO 01/15/25 pantoprazole [Protonix] 40 mg tablet,delayed release (DR/EC) 40 mg PO DAILY Referrals / Follow Up: Ishaan Bernabe MD [Primary Care Provider] - Within 1 Week Brennen Foy DO [Med Staff - Active Staff] - Within 2 Weeks Beena Whitfield PA [Non-Staff] - Within 1 Week Disposition Disposition (needs filled in before D/C Order can be placed): Residential Facility 01/10/25 8235 <Electronically signed by Katy De La Rosa MD> Cosigner Signature (if applicable): CC: Dr. Cortez Ramos MD; Dr. Eric López MD; Dr. Adan Rosa MD; Dr. Jesus Clemens MD; Dr. Nicholas Graham DO; Dr. Bishop Wheeler MD; Dr. Aidan Arteaga MD; Dr. Sina Duarte MD; Dr. Ishaan Bernabe MD; Dr. Fidel Benoit MD; Dr. Zeb Dubose MD; Dr. Linnea Valentino MD; Dr. Sinai Gurrola MD; Dr. Eliza Ha MD; Dr. Red Lyles MD; Dr. Joseph Taylor MD; Dr. Marquise Montano MD; Dr. Ghada Meyers MD; Dr. Nayla Mays MD; Dr. Christiano Palmer DO; Dr. Joseph Montiel DO; Dr. Moses Turner MD; Dr. Mynor Fields MD; Dr. Lashawn Pierce MD ~ [facility] Work Phone: [phone] 835-422408-20-2025 Discharge summary [facility] Medical Records Department [address] [place] [id number] Discharge Summary 01/10/25 1347 MR#: [id number] Acct: [id number] Name: SADE RUSH Rep #:[id number] : 1945 79 From: Katy De La Rosa MD PCP: Dr. Ishaan Bernabe MD Status:ADM IN [id number] Prov[facility] Date of Admission: 01/08/25 Date of Discharge: 01/10/25 Primary Care Physician: Dr. Ishaan Bernabe MD Consultations 01/08/25 13:40 Consult: Gastroenterology Routine Consulting Provider: [facility] Reason for Consult: acute on chronic anemia EMERGENT Consult: No Notified: Yes Date Notified: 01/08/25 Time Notified: 13:41 Method of Notification: Text 01/08/25 13:42 Consult: Take Down Sorter / Pulmonary Medicine Routine Consulting Provider: [facility]ivists/Pulmonary Med Reason for Consult: acute on chronic anemia EMERGENT Consult: No Notified: Yes Date Notified: 01/08/25 Time Notified: 13:54 Method of Notification: Answering Service Reason For Visit: ACUTE ON CHRONIC ANEMIA DUE TO GI BLEED Diagnosis Discharge Diagnosis (1) Acute anemia: Status: Acute Code(s): D64.9 - Anemia, unspecified (2) GI bleed: Status: Acute Code(s): K92.2 - Gastrointestinal hemorrhage, unspecified Plan #Acute on chronic anemia due to GI bleed * admitted with a complaint of anemia, per labs done in her SNF. She admitted to melena stools but denied any hematochezia, hematemesis or coffee ground emesis * Hb was 5.6 on admission. S/p transfusion of 2 units of packed red blood cells. Hemoglobin 7.1 this morning. * stool for occult blood positive. * She did have the CT of the abdomen and pelvis which showed a left adnexal cyst collection and further characterization with ultrasound recommended. * She did have an EGD yesterday which showed single bleeding angiodysplastic lesion in the duodenumwhich was treated with a heater probe and a clip was placed. * Continue the Protonix drip for another 24 hours. Placed on Carafate 3 times daily. * Transfused with 1 more unit of packed red blood cell as hemoglobin is only 7.1. * Gastroenterology on board. Transfer out of ICU to PCU. * * #Hypertension: On amlodipine 10 mg daily. #History of myasthenia gravis: on pyridostigmine. Stable. #History of depression: On sertraline #History of chronic pain syndrome: On [place] at home. #History of chronic migraines without aura: On sumatriptan #DVT prophylaxis: SCDs. no anticoagulation due to anemia. COde status: full code * Disposition: Transfer to PCU today. Medications at Discharge Home Medications montelukast 10 mg tablet 10 mg PO DAILY ALLERGIES 05/04/19 sertraline 100 mg tablet 100 mg PO DAILY DEPRESSION 05/04/19 albuterol sulfate 90 mcg/actuation aerosol inhaler 2 puff inhalation Q4H PRN shortness of breath orwheezing 10/22/23 budesonide-formoterol HFA 80 mcg-4.5 mcg/actuation aerosol inhaler 2 puff inhalation BID DYSPNEA 10/22/23 estradiol 0.5 mg tablet 0.5 mg PO DAILY POSTMENOPAUSAL 10/22/23 pyridostigmine bromide 60 mg tablet 60 mg PO Q8H FOR MUSCLE STRENGTH 10/22/23 sumatriptan succinate 100 mg tablet 100 mg PO PRN MIGRAINE 10/22/23 cholecalciferol (vitamin D3) 25 mcg (1,000 unit) capsule (Vitamin D3) 2,000 unitPO DAILY /04/24 amlodipine 10 mg tablet 10 mg PO DAILY HTN #0 tabs 10/27/23 acetaminophen 325 mg tablet 650 mg PO Q6H PRN pain 01/08/25 cromolyn 4 % eye drops 2 drp ophthalmic (eye) Q6H PRN VERNAL CONJUNCTIVITIS 01/08/25 fluticasone propionate 50 mcg/actuation nasal spray,suspension 1 spray intranasal Q12H ALLERGY SYMPTOM 01/08/25 hydrocodone-acetaminophen 5-325mg 5mg-325mg 1 tab PO Q6H PRN Pain 5-10 Or Fever > 100.7 F 01/08/25 lidocaine 4 % topical patch (Aspercreme (lidocaine)) 1 patch topical DAILY PRN pain 01/08/25 loperamide 2 mg capsule 2 mg PO Q4H PRN DIARRHEA 01/08/25 loratadine 10 mg tablet (Allerclear) 10 mg PO DAILY ALLERGIES 01/08/25 melatonin 3 mg tablet 3 mg PO PRN Insomnia 01/08/25 naphazoline-glycerin 0.03 %-0.5 % eye drops (Clear Eyes Cooling Comfort) 2 drp ophthalmic (eye) Q4HPRN ITCHY EYES 01/08/25 ondansetron HCl 4 mg tablet 4 mg PO Q6H PRN nausea and vomiting 01/08/25 simethicone 125 mg tablet (Bicarsim Forte) 125 mg PO Q8H PRN abdominal distention 01/08/25 vit A 300 mcg-C 200 mg-E 27 mg-lutein 2 mg and minerals tablet (I-Hernan) 1 tab PODAILY VERNAL CONJUNCTIVITIS 01/08/25 pantoprazole 40 mg tablet,delayed release 40 mg PO BID #60 tabs 01/10/25 sucralfate 1 gram tablet (Carafate) 1 g PO TID #90 tabs 01/10/25 Hospital Course Operations None Procedures EGD Summary of Care Provided Minutes Spent on Discharge: 55 Hospital Course: SADE RUSH, is a 79 F with a PMH as outlined who presents with a complaint ofblack, tarry stools. Her Hb was down to 5.6. She has a history of myasthenia gravis and repeated GI bleeds in the past,requiring blood transfusion. She saysshe last had a colonoscopy and EGD in 2000 in [place], but has refused any since. She denied any abdominal pain, fever or chills, any coffee-ground emesisor any bright red bleeding per rectum. She denies any weight loss. Review of systems otherwise negative. Vitals in the ED were temp of 98.3F, CO of 100, BP of 120/80, RR of 18, and she was saturating at 94% on room air. CBC showed hemoglobin of 5.6 with a WBC of 11.6 and platelets of 350. INR is 1.1. Chemistry shows sodium of 142 potassiumof 4.2 and bicarb of 23.6. Creatinine was 0.61. CT abdomen and pelvis was ordered by the ED doctor. Patient refused. When I reviewed patient's I spoke to her extensively about this and informed her that if there was any active GI bleeding source that could be taken care of by interventional radiology, the CT a abdomen and pelvis would help detect this. Patient was initially with lactateand said she would not do it because she felt it was just adding to her medical course. I explained to her that she did have insurance so this could cover it. However she wanted to know exactly how much it would cost. I explained to her that I did not have the information about exactly how much the CT would cause but I felt it was medically necessary under the circumstances. Patient then reluctantly agreed and I did speak to the ED doctor about ordering this. However patient subsequently declined this. She has been admitted to the ICU guido managed for acute on chronicanemia due to GI bleed. She was transfused with1 unit of packed red blood cells in the ED. Gastroenterology was consulted and she was transfused with one more unit of PRBC. She had EGD which showed normal esophagus, no gross lesions in the stomach and a single, bleeding angiodysplastic lesion in the duodenum treated with a heater probe, and a clip was placed. The protonix drip was continued for another 24 hours and she was switched to pO protonix. She was transfused with a third unit of PRBC. She remained stable and her Hb was 8.6 prior to discharge. She was switched to PO protonix 40mg bid and also placed on carafate tid. She is to follow up with her PCP and bath house attendant within 1-2 weeks. Patient seen and examined. She had no active complaints and had an uneventful night. Review of systems is otherwise negative. Labs and vitals reviewed. Home meds reviewed and reconciled. Patient is refusing to take iron tablets and so she was advised to eat a diet rich in iron. Physical Exam Const alert, oriented x3 and no apparent distress General Appearance: cooperative, comfortable and well kempt Exam Limitations: no limitations HEENT normocephalic, head/scalp atraumatic, hearing grossly normal bilaterally and moist oral mucous membranes Mouth: oral and palatal mucosa normal Eyes EOMs intact bilaterally and conjunctivae normal Neck supple and no JVD Resp normal respiratory effort, normal air movement, no use of accessory muscles and clear to auscultation bilaterally Resp Narrative: on room air. Cardio regular rate, regular rhythm, S1 normal heart sound, S2 normal heart sound and no murmurs GI normal to inspection, nondistended, normoactive bowel sounds, soft to palpation,non-tender and non-distended Extremity normal to inspection General Extremity: no tenderness to palpation of joints or extremities Neuro oriented x3 and CN's II-XII intact bilaterally Neuro Narrative: has chronic bilateral LE weakness due to myasthenia gravis Sensorium / Orientation: awake and alert Motor Exam: general weakness Psych affect normal Appearance: appropriate Weight / BMI Weight Weight: 150 lb 12.739 oz Body Mass Index (BMI) 26.7 ABG / Lab / Microbiology Data 01/10/25 04:51 01/10/25 04:51 Laboratory: Laboratory Results - last 24 hr 01/08/25 09:39: Crossmatch See Detail 01/08/25 09:39: Crossmatch See Detail 01/10/25 04:51: WBC 11.0, RBC 2.76 L, Hgb 8.6 L, Hct 25.5 L, MCV 92.4, MCH 31.2,MCHC 33.7, RDW Std Deviation 44.7 H, RDW Coeff of Meir 13.8, Plt Count 284, MPV 10.9, Immature Gran % (Auto) 0.600, Neut% (Auto) 70.6 H, Lymph % (Auto) 18.0 L,Jerauld % (Auto) 7.9, Eos % (Auto) 2.4, Baso % (Auto) 0.5, Absolute Neuts (auto) 7.7, Absolute Lymphs (auto) 1.97, Nucleated RBC % 0, Sodium 139, Potassium 3.6, Chloride 106, Carbon Dioxide 24.0, Anion Gap 9, BUN 7, Creatinine 0.50 L, Estim Creat Clear Calc 53.38, Est GFR (MDRD) Non-Af 96, BUN/Creatinine Ratio 14.9, Glucose 94, Calcium 8.6 Microbiology: Microbiology 01/08/25 10:42 Stool Stool Occult Blood (RUTH ANN) - Final Occult Blood Positive D/C Instructions Discharge Activity: Return to Normal Activity DC O2, CPAP, BIPAP Needs Home O2 Discharge instructions: No DC home with Oxygen: No Meaningful Use Info Meaningful Use Meaningful Use Diagnoses (Choose all that apply): None applicable Discharge Plan Admission Admit Date/Time: 01/08/25 12:08 Primary Reason for Your Visit: acute upper GI bleed Attending Provider: Katy De La Rosa Primary Care Provider: Ishaan Bernabe Consulting Providers: Eric López; Cortez Ramos; Adan Rosa; Nicholas Graham; Jesus Clemens; Bishop Wheeler; Aidan Arteaga; Lashawn Pierce; Sina Duarte; Fidel Benoit; Zeb Dubose; Linnea Valentino; Sinai Gurrola; Eliza Ha; Joseph Taylor; Red Lyles; Marquise Montano; Christiano Palmer; Nayla Mays; Ghada Meyers; Joseph Montiel; Moses Turner; Mynor Fields Instructions Patient Instructions: EGD (Upper Endoscopy): Post-op Additional Instructions / Restrictions: eat a diet rich in iron foods Discharge Orders/Prescriptions Prescriptions: New pantoprazole 40 mg Tablet,Delayed Release (Dr/Ec) 40 mg PO BID Qty: 60 2RF sucralfate [Carafate] 1 gram tablet 1 g PO TID Qty: 90 2RF Continued sertraline 100 MG tablet 100 mg PO DAILY montelukast 10 MG tablet 10 mg PO DAILY albuterol sulfate 90 mcg/actuation HFA aerosol inhaler 2 puff inhalation Q4H PRN (Reason: shortness of breath or wheezing) pyridostigmine bromide 60 mg tablet 60 mg PO Q8H estradiol 0.5 mg tablet 0.5 mg PO DAILY budesonide-formoterol 80-4.5 mcg/actuation HFA aerosol inhaler 2 puff INHALATION BID sumatriptan succinate 100 mg tablet 100 mg PO PRN cholecalciferol (vitamin D3) [Vitamin D3] 25 mcg (1,000 unit) capsule 2,000 unit PO DAILY amlodipine 10 mg Tablet 10 mg PO DAILY Qty: 0 0RF acetaminophen 325 mg tablet 650 mg PO Q6H PRN (Reason: pain) Clear Eyes Cooling Comfort 0.03-0.5 % drops 2 drp ophthalmic (eye) Q4H PRN (Reason: ITCHY EYES) cromolyn 4 % drops 2 drp ophthalmic (eye) Q6H PRN (Reason: VERNAL CONJUNCTIVITIS) fluticasone propionate 50 mcg/actuation spray,suspension 1 spray INTRANASAL Q12H I-Hernan 300 mcg-200 mg-27 mg-2 mg tablet 1 tab PO DAILY Rx Instructions: administer after a meal loratadine [Allerclear] 10 mg tablet 10 mg PO DAILY lidocaine [Aspercreme (lidocaine)] 4 % adhesive patch,medicated 1 patch topical DAILY PRN (Reason: pain) Rx Instructions: LEFT HAND AND LEFT SHOULDER Bicarsim Forte 125 mg tablet 125 mg PO Q8H PRN (Reason: abdominal distention) ondansetron HCl 4 mg tablet 4 mg PO Q6H PRN (Reason: nausea and vomiting) loperamide 2 mg Capsule 2 mg PO Q4H PRN (Reason: DIARRHEA) hydrocodone-acetaminophen 5-325 mg Tablet 1 tab PO Q6H PRN (Reason: Pain 5-10 Or Fever > 100.7 F) melatonin 3 mg Tablet 3 mg PO PRN Discontinued naproxen sodium [Aleve] 220 mg capsule 220 mg PO BID PRN (Reason: pain) Rx Instructions: HOLD FROM 01/08/25 TO 01/15/25 pantoprazole [Protonix] 40 mg tablet,delayed release (DR/EC) 40 mg PO DAILY Referrals / Follow Up: Ishaan Bernabe MD [Primary Care Provider] - Within 1 Week Brennen Foy DO [Med Staff - Active Staff] - Within 2 Weeks Beena Whitfield PA [Non-Staff] - Within 1 Week Disposition Disposition (needs filled in before D/C Order can be placed): Residential Facility Charges/Coding Visit Charges Inpatient E&M: 28820 Disch Hosp >30min 01/10/25 1405 Cosigner Signature (if applicable): CC: Dr. Ishaan Bernabe MD; Dr. Katy De La Rosa MD~ Signed [facility]08-20-2025 Hospital Discharge instructionsAdditional Instructions eat a diet rich in iron foods Date of Discharge: 01/10/25[facility] Work Phone: 1(986) 390-822208-20-2025 [facility] Medical Records Department [address] [place] [address] Discharge Summary 01/10/25 1347 MR#: [id number] Acct: [id number] Name: SADE RUSH Rep #: [id number] : 1945 79 From: Katy De La Rosa MD PCP: Dr. Ishaan Bernabe MD Status:ADM IN Location: [place] [address] Providers Date of Admission: 01/08/25 Date of Discharge: 01/10/25 Primary Care Physician: Dr. Ishaan Bernabe MD Consultations 01/08/25 13:40 Consult: Gastroenterology Routine Consulting Provider: [facility] Reason for Consult: acute on chronic anemia EMERGENT Consult: No Notified: Yes Date Notified: 01/08/25 Time Notified: 13:41 Method of Notification: Text 01/08/25 13:42 Consult: Take Down Sorter / Pulmonary Medicine Routine Consulting Provider: Intensivists/Pulmonary Med Reason for Consult: acute on chronic anemia EMERGENT Consult: No Notified: Yes Date Notified: 01/08/25 Time Notified: 13:54 Method of Notification: Answering Service Reason For Visit: ACUTE ON CHRONIC ANEMIA DUE TO GI BLEED Diagnosis Discharge Diagnosis (1) Acute anemia: Status: Acute Code(s): D64.9 - Anemia, unspecified (2) GI bleed: Status: Acute Code(s): K92.2 - Gastrointestinal hemorrhage, unspecified Plan #Acute on chronic anemia due to GI bleed * admitted with a complaint of anemia, per labs done in her SNF. She admitted to melena stools but denied any hematochezia, hematemesis or coffee ground emesis * Hb was 5.6 on admission. S/p transfusion of 2 units of packed red blood cells. Hemoglobin 7.1 this morning. * stool for occult blood positive. * She did have the CT of the abdomen and pelvis which showed a left adnexal cyst collection and further characterization with ultrasound recommended. 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 * Continue the Protonix drip for another 24 hours. Placed on Carafate 3 times daily. * Transfused with 1 more unit of packed red blood cell as hemoglobin is only 7.1. * Gastroenterology on board. Transfer out of ICU to PCU. * * #Hypertension: On amlodipine 10 mg daily. #History of myasthenia gravis: on pyridostigmine. Stable. #History of depression: On sertraline #History of chronic pain syndrome: On [place] at home. #History of chronic migraines without aura: On sumatriptan #DVT prophylaxis: SCDs. no anticoagulation due to anemia. COde status: full code * Disposition: Transfer to PCU today. Medications at Discharge Home Medications montelukast 10 mg tablet 10 mg PO DAILY ALLERGIES 05/04/19 sertraline 100 mg tablet 100 mg PO DAILY DEPRESSION 05/04/19 albuterol sulfate 90 mcg/actuation aerosol inhaler 2 puff inhalation Q4H PRN shortness of breath or wheezing 10/22/23 budesonide-formoterol HFA 80 mcg-4.5 mcg/actuation aerosol inhaler 2 puff inhalation BID DYSPNEA 10/22/23 estradiol 0.5 mg tablet 0.5 mg PO DAILY POSTMENOPAUSAL 10/22/23 pyridostigmine bromide 60 mg tablet 60 mg PO Q8H FOR MUSCLE STRENGTH 10/22/23 sumatriptan succinate 100 mg tablet 100 mg PO PRN MIGRAINE 10/22/23 cholecalciferol (vitamin D3) 25 mcg (1,000 unit) capsule (Vitamin D3) 2,000 unit PO DAILY supplement 10/26/23 amlodipine 10 mg tablet 10 mg PO DAILY HTN #0 tabs 10/27/23 acetaminophen 325 mg tablet 650 mg PO Q6H PRN pain 01/08/25 cromolyn 4 % eye drops 2 drp ophthalmic (eye) Q6H PRN VERNAL CONJUNCTIVITIS 01/08/25 fluticasone propionate 50 mcg/actuation nasal spray,suspension 1 spray intranasal Q12H ALLERGY SYMPTOM 01/08/25 hydrocodone-acetaminophen 5-325mg 5mg-325mg 1 tab PO Q6H PRN Pain 5-10 Or Fever > 100.7 F 01/08/25 lidocaine 4 % topical patch (Aspercreme (lidocaine)) 1 patch topical DAILY PRN pain 01/08/25 loperamide 2 mg capsule 2 mg PO Q4H PRN DIARRHEA 01/08/25 loratadine 10 mg tablet (Allerclear) 10 mg PO DAILY ALLERGIES 01/08/25 melatonin 3 mg tablet 3 mg PO PRN Insomnia 01/08/25 naphazoline-glycerin 0.03 %-0.5 % eye drops (Clear Eyes Cooling Comfort) 2 drp ophthalmic (eye) Q4H PRN ITCHY EYES 01/08/25 ondansetron HCl 4 mg tablet 4 mg PO Q6H PRN nausea and vomiting 01/08/25 simethicone 125 mg tablet (Bicarsim Forte) 125 mg PO Q8H PRN abdominal distention 01/08/25 vit A 300 mcg-C 200 mg-E 27 mg-lutein 2 mg and minerals tablet (I-Hernan) 1 tab PO DAILY VERNAL CONJUNCTIVITIS 01/08/25 pantoprazole 40 mg tablet,delayed release 40 mg PO BID #60 tabs 01/10/25 sucralfate 1 gram tablet (Carafate) 1 g PO TID #90 tabs 01/10/25 Hospital Course Operations None Procedures EGD Summary of Care Provided Minutes Spent on Discharge: 55 Hospital Course: SADE RUSH, is a 79 F with a PMH as outlined who presents with a complaint of black, tarry stools. Her Hb was down to 5.6. She has a history of myasthenia gravis and repeated GI bleed (more content not included)...[facility] 01-10-2025 Discharge summary [facility] Medical Records Department [address] [place] [address] [facility] MR#: [id number] Acct: [id number] Name: SADE RUSH Rep #:[id number] : 1945 79 From: Katy De La Rosa MD PCP: Dr. Ishaan Bernabe MD Status:ADM IN Certification of patient admission REQUIRED AT TIME OF ADMISSION. I CERTIFY THAT POST-HOSPITAL ECF SERVICES ARE REQUIRED TO BE GIVEN ON AN IN-PATIENT BASIS BECAUSE OF THE ABOVE NAMED PATIENT'S NEED FOR INTERMEDIATE CARE ON A CONTINUING BASIS FOR THE CONDITION(S) FOR WHICH HE/SHE WAS RECEIVING IN-PATIENT HOSPITAL SERVICES PRIOR TO HIS/HER TRANSFER TO THE ECF. 01/10/25 1209 Diet Diet Order/Speech Therapy: INPATIENT Hospital Diet / Speech Therapy Order(s) 01/10/25 08:40 Diet: Regular - General Routine Orders/Code Status Enema Type: Fleetz Enema Frequency: Daily PRN Suppository Frequency: Daily PRN DC O2, CPAP, BIPAP needs Home O2 Discharge instructions: No Therapies Weight Bearing: Weight bearing as tolerated Physical Therapy: Eval and Treat Occupational Therapy: Eval and Treat Problem/Diagnosis (1) Acute anemia: Status: Acute Code(s): D64.9 - Anemia, unspecified (2) GI bleed: Status: Acute Code(s): K92.2 - Gastrointestinal hemorrhage, unspecified Plan #Acute on chronic anemia due to GI bleed * admitted with a complaint of anemia, per labs done in her SNF. She admitted to melena stools but denied any hematochezia, hematemesis or coffee ground emesis * Hb was 5.6 on admission. S/p transfusion of 2 units of packed red blood cells. Hemoglobin 7.1 this morning. * stool for occult blood positive. * She did have the CT of the abdomen and pelvis which showed a left adnexal cyst collection and further characterization with ultrasound recommended. * She did have an EGD yesterday which showed single bleeding angiodysplastic lesion in the duodenumwhich was treated with a heater probe and a clip was placed. * Continue the Protonix drip for another 24 hours. Placed on Carafate 3 times daily. * Transfused with 1 more unit of packed red blood cell as hemoglobin is only 7.1. * Gastroenterology on board. Transfer out of ICU to PCU. * * #Hypertension: On amlodipine 10 mg daily. #History of myasthenia gravis: on pyridostigmine. Stable. #History of depression: On sertraline #History of chronic pain syndrome: On [place] at home. #History of chronic migraines without aura: On sumatriptan #DVT prophylaxis: SCDs. no anticoagulation due to anemia. COde status: full code * Disposition: Transfer to PCU today. Allergies/Procedures Done in Hospital Allergies Beta-Blockers (Beta-Adrenergic Bloc Allergy (Severe, Verified 10/22/23 12:02) Other M YASTHENIA GRAVIS Horse/Equine Containing Products Adverse Reaction (Verified 10/22/23 12:00) NEEDS FOLLOW-UP Sugars, Metabolically Active Adverse Reaction (Verified 10/22/23 12:00) Unknown Procedures: None Type of Care/Length of Stay Estimated LOS: Convalescent Care Less Than 30 days Type of Care Needed: Skilled Rehab Potential: Fair Prognosis: Fair Additional Orders/Day of Discharge Day of Discharge: 01/10/25 Dietary and Speech Recommendations Dietitian Recommendations/Changes: Recommend advanced diet as tolerated to regular. Will monitor weight trends. Discharge Plan Admission Admit Date/Time: 01/08/25 12:08 Primary Reason for Your Visit: acute upper GI bleed Attending Provider: Katy De La Rosa Primary Care Provider: Ishaan Bernabe Consulting Providers: Eric López; Cortez Ramos; Adan Rosa; Nicholas Graham; Jesus Clemens; Bishop Wheeler; Aidan Arteaga; Lashawn Pierce; Sina Duarte; Fidel Benoit; Zeb Dubose; Linnea Valentino; Sinai Gurrola; Eliza Ha; Brandon,Joseph; Trupti,Red; Dusty,Marquise; Estela,Christiano; Nayla Mays; Ghada Meyers; Joseph Montiel; Moses Turner; Mynor Fields Instructions Patient Instructions: EGD (Upper Endoscopy): Post-op Additional Instructions / Restrictions: eat a diet rich in iron foods Discharge Orders/Prescriptions Prescriptions: New pantoprazole 40 mg Tablet,Delayed Release (Dr/Ec) 40 mg PO BID Qty: 60 2RF sucralfate [Carafate] 1 gram tablet 1 g PO TID Qty: 90 2RF Continued sertraline 100 MG tablet 100 mg PO DAILY montelukast 10 MG tablet 10 mg PO DAILY albuterol sulfate 90 mcg/actuation HFA aerosol inhaler 2 puff inhalation Q4H PRN (Reason: shortness of breath or wheezing) pyridostigmine bromide 60 mg tablet 60 mg PO Q8H estradiol 0.5 mg tablet 0.5 mg PO DAILY budesonide-formoterol 80-4.5 mcg/actuation HFA aerosol inhaler 2 puff INHALATION BID sumatriptan succinate 100 mg tablet 100 mg PO PRN cholecalciferol (vitamin D3) [Vitamin D3] 25 mcg (1,000 unit) capsule 2,000 unit PO DAILY amlodipine 10 mg Tablet 10 mg PO DAILY Qty: 0 0RF acetaminophen 325 mg tablet 650 mg PO Q6H PRN (Reason: pain) Clear Eyes Cooling Comfort 0.03-0.5 % drops 2 drp ophthalmic (eye) Q4H PRN (Reason: ITCHY EYES) cromolyn 4 % drops 2 drp ophthalmic (eye) Q6H PRN (Reason: VERNAL CONJUNCTIVITIS) fluticasone propionate 50 mcg/actuation spray,suspension 1 spray INTRANASAL Q12H I-Hernan 300 mcg-200 mg-27 mg-2 mg tablet 1 tab PO DAILY Rx Instructions: administer after a meal loratadine [Allerclear] 10 mg tablet 10 mg PO DAILY lidocaine [Aspercreme (lidocaine)] 4 % adhesive patch,medicated 1 patch topical DAILY PRN (Reason: pain) Rx Instructions: LEFT HAND AND LEFT SHOULDER Bicarsim Forte 125 mg tablet 125 mg PO Q8H PRN (Reason: abdominal distention) ondansetron HCl 4 mg tablet 4 mg PO Q6H PRN (Reason: nausea and vomiting) loperamide 2 mg Capsule 2 mg PO Q4H PRN (Reason: DIARRHEA) hydrocodone-acetaminophen 5-325 mg Tablet 1 tab PO Q6H PRN (Reason: Pain 5-10 Or Fever > 100.7 F) melatonin 3 mg Tablet 3 mg PO PRN Discontinued naproxen sodium [Aleve] 220 mg capsule 220 mg PO BID PRN (Reason: pain) Rx Instructions: HOLD FROM 01/08/25 TO 01/15/25 pantoprazole [Protonix] 40 mg tablet,delayed release (DR/EC) 40 mg PO DAILY Referrals / Follow Up: Ishaan Bernabe MD [Primary Care Provider] - Within 1 Week Brennen Foy DO [Med Staff - Active Staff] - Within 2 Weeks Beena Whitfield PA [Non-Staff] - Within 1 Week Disposition Disposition (needs filled in before D/C Order can be placed): Residential Facility 01/10/25 1209 Cosigner Signature (if applicable): CC: Dr. Cortez Ramos MD; Dr. Eric López MD; Dr. Adan Rosa MD; Dr. Jesus Clemens MD; Dr. Nicholas Graham DO; Dr. Bishop Wheeler MD; Dr. Aidan Arteaga MD; Dr. Sina Duarte MD; Dr. Ishaan Bernabe MD; Dr. Fidel Benoit MD; Dr. Zeb Dubose MD; Dr. Linnea Valentino MD; Dr. Sinai Gurrola MD; Dr. Eliza Ha MD; Dr. Red Lyles MD; Dr. Joseph Taylor MD; Dr. Marquise Montano MD; Dr. Ghada Meyers MD; Dr. Nayla Mays MD; Dr. Christiano Palmer DO; Dr. Joseph Montiel DO; Dr. Moses Turner MD; Dr. Mynor Fields MD; Dr. Lashawn Pierce MD ~ [facility]08-19-2025 Progress note Author Katy [facility] Note Date/Time January 09, 2025 3: [address] [place] [address] [facility] System Medical Records Department [address] [place] [address] Progress Note 01/09/25 1011 MR#: [id number] Acct: [id number] Name: SADE RUSH Rep #:[id number] : 1945 79 From: Katy De La Rosa MD PCP: Dr. Ishaan Bernabe MD Status:ADM IN Location: [place] [address] Subjective Subjective Patient seen and examined today. She had no active complaints. She did have the EGD yesterday which showed a bleeding angiodysplastic lesion which was cauterized. Hemoglobin today 7.1. She did end up having the CT abdomen and pelvis yesterday. Review of systems otherwise negative. Objective Data Objective Data Vital Signs: Vital Signs Temp Pulse Resp BP Pulse Ox O2 Del Method 97.9 F 71 19 H 112/46 L 94 Room Air 01/09/25 08:00 01/09/25 08:00 01/09/25 08:00 01/09/25 08:00 01/09/25 08:00 01/09/25 08:00 Oxygen Delivery Method Room Air Weight: 149 lb 11.102 oz Body Mass Index (BMI) 26.5 Intake & Output: Intake and Output for Last 24 Hours 01/07/25 01/08/25 01/09/25 23:59 23:59 23:59 Intake Total 1729.08 / 1729.08 1073.5 / 1073.5 Output Total 2 / 2 Balance 1727.08 / 1727.08 1073.5 / 1073.5 Lab / Micro Data 01/09/25 06:13 01/09/25 06:13 Labs: Laboratory Results - last 24 hr 01/08/25 09:39: WBC 11.6 H, RBC 1.77 L, Hgb 5.6 L*, Hct 17.4 L, MCV 98.3, MCH 31.6, MCHC 32.2, RDW Std Deviation 42.6, RDW Coeff of Meir 12.3, Plt Count 350, MPV 11.0, Immature Gran % (Auto) 0.500, Neut % (Auto) 72.0 H, Lymph % (Auto) 20.1, Jerauld % (Auto) 6.3, Eos % (Auto) 0.8, Baso % (Auto) 0.3, Absolute Neuts (auto) 8.3 H, Absolute Lymphs (auto) 2.33, Nucleated RBC % 0, PT 14.4, INR 1.1, APTT 24.3, Sodium 140, Potassium 4.2, Chloride 107, Carbon Dioxide 23.6, Anion Gap 9, BUN 32 H, Creatinine 0.61 L, Estim Creat Clear Calc 55.63, Est GFR (MDRD)Non-Af 92, BUN/Creatinine Ratio 52.6 H, Glucose 121 H, Calcium 9.0, Total Bilirubin 0.23, AST 20, ALT 21, Alkaline Phosphatase 63, Total Protein 5.4 L, Albumin 3.4, Globulin 2.1 L, Albumin/Globulin Ratio 1.6, Lipase 28, Blood Type OPOSITIVE, Antibody Screen NEGATIVE, Crossmatch See Detail 01/08/25 09:39: Crossmatch See Detail 01/09/25 06:13: WBC 11.3 H, RBC 2.22 L, Hgb 7.1 L, Hct 21.0 L, MCV 94.6, MCH 32.0, MCHC 33.8, RDW Std Deviation 45.1 H, RDW Coeff of Meir 13.4, Plt Count 283,MPV 11.0, Immature Gran % (Auto) 0.600, Neut % (Auto) 76.6 H, Lymph % (Auto) 14.5 L, Jerauld % (Auto) 6.8, Eos % (Auto) 1.1, Baso % (Auto) 0.4, Absolute Neuts (auto) 8.7 H, Absolute Lymphs (auto) 1.64, Nucleated RBC % 0, PT Cancelled, INR Cancelled, Sodium 137, Potassium 4.3, Chloride 107, Carbon Dioxide 19.3 L, AnionGap 10, BUN 17, Creatinine 0.47 L, Estim Creat Clear Calc 53.20, Est GFR (MDRD) Non-Af 98, BUN/Creatinine Ratio 36.8 H, Glucose 91, Calcium 8.1 01/09/25 06:40: PT 15.2 H, INR 1.2 Micro: Microbiology 01/08/25 10:42 Stool Stool Occult Blood (RUTH ANN) - Final Occult Blood Positive Radiography Diagnostic Testing: Radiology Impression Abdomen/Pelvis CT 01/08/25 16:22 IMPRESSION: Left adnexal cystic collection. Further characterization with ultrasound is recommended. No other acute abnormalities of the abdomen or pelvis. Reading Location: [facility] Physical Exam Const alert, oriented x3 and no apparent distress Constitutional Narrative: visibly pale, animated. HEENT normocephalic, head/scalp atraumatic, hearing grossly normal bilaterally and moist oral mucous membranes Eyes EOMs intact bilaterally and conjunctivae normal Neck supple and no JVD Resp normal respiratory effort, normal air movement, no use of accessory muscles and clear to auscultation bilaterally Resp Narrative: on room air. Cardio regular rate, regular rhythm, S1 normal heart sound, S2 normal heart sound and no murmurs GI normal to inspection, nondistended, normoactive bowel sounds, soft to palpation,non-tender and non-distended Extremity normal to inspection General Extremity: no tenderness to palpation of joints or extremities Neuro oriented x3 and CN's II-XII intact bilaterally Neuro Narrative: has chronic bilateral LE weakness due to myasthenia gravis Sensorium / Orientation: awake and alert Motor Exam: general weakness Psych affect normal Appearance: appropriate Assessment & Plan Assessment/Plan (1) Acute anemia: (2) GI bleed: PLAN: Plan #Acute on chronic anemia due to GI bleed * admitted with a complaint of anemia, per labs done in her SNF. She admitted to melena stools but denied any hematochezia, hematemesis or coffee ground emesis * Hb was 5.6 on admission. S/p transfusion of 2 units of packed red blood cells. Hemoglobin 7.1 this morning. * stool for occult blood positive. * She did have the CT of the abdomen and pelvis which showed a left adnexal cyst collection and further characterization with ultrasound recommended. 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 * Continue the Protonix drip for another 24 hours. Placed on Carafate 3 times daily. * Transfused with 1 more unit of packed red blood cell as hemoglobin is only 7.1. * Gastroenterology on board. Transfer out of ICU to PCU. * * #Hypertension: On amlodipine 10 mg daily. #History of myasthenia gravis: on pyridostigmine. Stable. #History of depression: On sertraline #History of chronic pain syndrome: On [place] at home. #History of chronic migraines without aura: On sumatriptan #DVT prophylaxis: SCDs. no anticoagulation due to anemia. COde status: full code * Disposition: Transfer to PCU today. Charges/Coding Visit Charges Inpatient E&M: 88739 Subs Hosp L2 01/09/25 7621 <Electronically signed by Katy De La Rosa MD> Katy De La Rosa MD Cosigner Signature (if applicable): CC: ~ Signed [facility] Work Phone: 1(464) 747-181408-19-2025 Progress note [facility] Medical Records Department [address] [place] [address] Progress Note 01/09/25 1011 MR#: [id number] Acct: [id number] Name: SADE RUSH Rep #:[id number] : 1945 79 From: Katy De La Rosa MD PCP: Dr. Ishaan Bernabe MD Status:ADM IN Location: [place] [address] Subjective Subjective Patient seen and examined today. She had no active complaints. She did have the EGD yesterday whichshowed a bleeding angiodysplastic lesion which was cauterized. Hemoglobin today 7.1. She did end uphaving the CT abdomen and pelvis yesterday. Review of systems otherwise negative. Objective Data Objective Data Vital Signs: Vital Signs Temp Pulse Resp BP Pulse Ox O2 Del Method 97.9 F 71 19 H 112/46 L 94 Room Air 01/09/25 08:00 01/09/25 08:00 01/09/25 08:00 01/09/25 08:00 01/09/25 08:00 01/09/25 08:00 Oxygen Delivery Method Room Air Weight: 149 lb 11.102 oz Body Mass Index (BMI) 26.5 Intake & Output: Intake and Output for Last 24 Hours 01/07/25 01/08/25 01/09/25 23:59 23:59 23:59 Intake Total 1729.08 / 1729.08 1073.5 / 1073.5 Output Total 2 / 2 Balance 1727.08 / 1727.08 1073.5 / 1073.5 Lab / Micro Data 01/09/25 06:13 01/09/25 06:13 Labs: Laboratory Results - last 24 hr 01/08/25 09:39: WBC 11.6 H, RBC 1.77 L, Hgb 5.6 L*, Hct 17.4 L, MCV 98.3, MCH 31.6, MCHC 32.2, RDW Std Deviation 42.6, RDW Coeff of Meir 12.3, Plt Count 350, MPV 11.0, Immature Gran % (Auto) 0.500, Neut % (Auto) 72.0 H, Lymph % (Auto) 20.1, Jerauld % (Auto) 6.3, Eos % (Auto) 0.8, Baso % (Auto) 0.3, Absolute Neuts (auto) 8.3 H, Absolute Lymphs (auto) 2.33, Nucleated RBC % 0, PT 14.4, INR 1.1, APTT 24.3, Sodium 140, Potassium 4.2, Chloride 107, Carbon Dioxide 23.6, Anion Gap 9, BUN 32 H, Creatinine 0.61 L, Estim Creat Clear Calc 55.63, Est GFR (MDRD)Non-Af 92, BUN/Creatinine Ratio 52.6 H, Glucose 121 H, Calcium 9.0, Total Bilirubin 0.23, AST 20, ALT 21, Alkaline Phosphatase 63, Total Protein 5.4 L, Albumin 3.4, Globulin 2.1 L, Albumin/Globulin Ratio 1.6, Lipase 28, Blood Type OPOSITIVE, Antibody Screen NEGATIVE, Crossmatch See Detail 01/08/25 09:39: Crossmatch See Detail 01/09/25 06:13: WBC 11.3 H, RBC 2.22 L, Hgb 7.1 L, Hct 21.0 L, MCV 94.6, MCH 32.0, MCHC 33.8, RDW Std Deviation 45.1 H, RDW Coeff of Meir 13.4, Plt Count 283,MPV 11.0, Immature Gran % (Auto) 0.600, Neut % (Auto) 76.6 H, Lymph % (Auto) 14.5 L, [place] % (Auto) 6.8, Eos % (Auto) 1.1, Baso % (Auto) 0.4, Absolute Neuts (auto) 8.7 H, Absolute Lymphs (auto) 1.64, Nucleated RBC % 0, PT Cancelled, INR Cancelled, Sodium 137, Potassium 4.3, Chloride 107, Carbon Dioxide 19.3 L, AnionGap 10, BUN 17, Creatinine0.47 L, Estim Creat Clear Calc 53.20, Est GFR (MDRD) Non-Af 98, BUN/Creatinine Ratio 36.8 H, Glucose 91, Calcium 8.1 01/09/25 06:40: PT 15.2 H, INR 1.2 Micro: Microbiology 01/08/25 10:42 Stool Stool Occult Blood (RUTH ANN) - Final Occult Blood Positive Radiography Diagnostic Testing: Radiology Impression Abdomen/Pelvis CT 01/08/25 16:22 IMPRESSION: Left adnexal cystic collection. Further characterization with ultrasound is recommended. No other acute abnormalities of the abdomen or pelvis. Reading Location: [facility] Physical Exam Const alert, oriented x3 and no apparent distress Constitutional Narrative: visibly pale, animated. HEENT normocephalic, head/scalp atraumatic, hearing grossly normal bilaterally and moist oral mucous membranes Eyes EOMs intact bilaterally and conjunctivae normal Neck supple and no JVD Resp normal respiratory effort, normal air movement, no use of accessory muscles and clear to auscultation bilaterally Resp Narrative: on room air. Cardio regular rate, regular rhythm, S1 normal heart sound, S2 normal heart sound and no murmurs GI normal to inspection, nondistended, normoactive bowel sounds, soft to palpation,non-tender and non-distended Extremity normal to inspection General Extremity: no tenderness to palpation of joints or extremities Neuro oriented x3 and CN's II-XII intact bilaterally Neuro Narrative: has chronic bilateral LE weakness due to myasthenia gravis Sensorium / Orientation: awake and alert Motor Exam: general weakness Psych affect normal Appearance: appropriate Assessment & Plan Assessment/Plan (1) Acute anemia: (2) GI bleed: PLAN: Plan #Acute on chronic anemia due to GI bleed * admitted with a complaint of anemia, per labs done in her SNF. She admitted to melena stools but denied any hematochezia, hematemesis or coffee ground emesis * Hb was 5.6 on admission. S/p transfusion of 2 units of packed red blood cells. Hemoglobin 7.1 this morning. * stool for occult blood positive. * She did have the CT of the abdomen and pelvis which showed a left adnexal cyst collection and further characterization with ultrasound recommended. * She did have an EGD yesterday which showed single bleeding angiodysplastic lesion in the duodenumwhich was treated with a heater probe and a clip was placed. * Continue the Protonix drip for another 24 hours. Placed on Carafate 3 times daily. * Transfused with 1 more unit of packed red blood cell as hemoglobin is only 7.1. * Gastroenterology on board. Transfer out of ICU to PCU. * * #Hypertension: On amlodipine 10 mg daily. #History of myasthenia gravis: on pyridostigmine. Stable. #History of depression: On sertraline #History of chronic pain syndrome: On [place] at home. #History of chronic migraines without aura: On sumatriptan #DVT prophylaxis: SCDs. no anticoagulation due to anemia. COde status: full code * Disposition: Transfer to PCU today. Charges/Coding Visit Charges Inpatient E&M: 41350 Subs Hosp L2 01/09/25 1531 Katy De La Rosa MD Cosigner Signature (if applicable): CC: ~ Signed [facility]08-18-2025 Consult note Author Johnny Lentz [facility] Note Date/Time January 08, 2025 9: 03pm [facility] Medical Records Department [address] [place] [address] Anesthesia Postop Eval II 01/08/252101 MR#: [id number] Acct: [id number] Name: SADE RUSH Rep #:[id number] : 1945 79 From: Johnny Lentz MD PCP: Dr. Isahan Bernabe MD Status:ADM IN Y Race: C Location: ICU CVICU 203-1 Anesthesia Postop Eval I Sum Postop Eval Completion status Anesthesia document: Postop Eval 1 completed: Yes Anesthesia Postop Eval I Summary Anesthesia Postop Eval I Summary: Anesthesia Postop Eval I: Assessment Summary Airway patent Yes 01/08/25 19:07 Spontaneous unlabored Yes 01/08/25 19:07 respirations Mental status Awake,Calm 01/08/25 19:07 nausea No 01/08/25 19:07 Vomiting No 01/08/25 19:07 Anesthesia Postop Eval I: Fluid Summary Crystalloid volume administer 300 01/08/25 19:07 (ml) Colloids volume administered ( ml) Blood Product volume administered (ml) Total IV fluid infused 300 01/08/25 19:07 Anesthesia Postop Eval I: Summary Notes Anesthesia Complication No 01/08/25 19:07 Anesthesia Complication Comment: Post-operative progress note Anesthesia: Postop Eval II Evaluation Mental status: Awake and Calm Pain Level: 0 nausea: No Vomiting: No Complications Anesthesia Complication: No 01/08/252102 <Electronically signed by Johnny rose MD> Date _ Johnny Lentz MD Cosigner Signature: Date CC: ~ Signed [facility] Work Phone: [phone]) 924-596508-18-2025 Consult note Author Johnny [facility] Note Date/Time January 08, 2025 7: 07pm [facility] Medical Records Department [address] [place], [place] [address] [address] Anesthesia Postop Eval I 01/08/251904 MR#: [id number] Acct: [id number] Name: SADE RUSH Rep #:[id number] : 1945 79 From: Johnny Lentz MD PCP: Dr. Ishaan Bernabe MD Status:ADM IN Y Race: C Location: ICU [place] [address]-1 Anesthesia: Postop Eval I Current Vital Signs Temperature: 99.4 F Pulse Rate: 105 Blood Pressure: 92/59 Respiratory Rate: 16 Pulse Ox: 97 Oxygen Delivery Method: Room Air Assessment Airway patent: Yes Spontaneous unlabored respirations: Yes Mental status: Awake and Calm nausea: No Vomiting: No Anesthesia Complication: No Fluid Hydration Crystalloid volume administer (ml): 300 Total IV fluid infused: 300 Progress Note Anesthesia document: Postop Eval 1 completed: Yes 01/08/251906 <Electronically signed by Johnny rose MD> Date _ Johnny Lentz MD Cosigner Signature: Date CC: ~ Signed [facility] Work Phone: [phone]) [phone] Consult note [facility] Medical Records Department [address] [place] [address] Anesthesia Postop Eval II 01/08/252101 MR#: [id number] Acct: [id number] Name: SADE RUSH Rep #:[id number] : 1945 79 From: Johnny Lentz MD PCP: Dr. Ishaan Bernabe MD Status:ADM IN Y Race: C Location: ICU CVICU 203 Anesthesia Postop Eval I Sum Postop Eval Completion status Anesthesia document: Postop Eval 1 completed: Yes Anesthesia Postop Eval I Summary Anesthesia Postop Eval I Summary: Anesthesia Postop Eval I: Assessment Summary Airway patent Yes 01/08/25 19:07 Spontaneous unlabored Yes 01/08/25 19:07 respirations Mental status Awake,Calm 01/08/25 19:07 nausea No 01/08/25 19:07 Vomiting No 01/08/25 19:07 Anesthesia Postop Eval I: Fluid Summary Crystalloid volume administer 300 01/08/25 19:07 (ml) Colloids volume administered ( ml) Blood Product volume administered (ml) Total IV fluid infused 300 01/08/25 19:07 Anesthesia Postop Eval I: Summary Notes Anesthesia Complication No 01/08/25 19:07 Anesthesia Complication Comment: Post-operative progress note Anesthesia: Postop Eval II Evaluation Mental status: Awake and Calm Pain Level: 0 nausea: No Vomiting: No Complications Anesthesia Complication: No 01/08/252102 milton CAGLE> Date _ Johnny Lentz MD Cosigner Signature: Date CC: ~ Signed [facility]08-18-2025 Consult note Author Johnny Lentz [facility] Note Date/Time January 08, 2025 6: 04pm [facility] Medical Records Department [address] [place] [address] Pre-Anesthesia Evaluation 01/08/25 1756 MR#: [id number] Acct: [id number] Name: SADE RUSH Rep #:[id number] : 1945 79 From: Johnny Lentz MD PCP: Dr. Ishaan Bernabe MD Status:ADM IN Y Race: C Location: ICU CVICU 203- ASA Classification* ASA Classification ASA Classification: 4 Assessment & Plan Anesthesia* Anesthesia Assessment Anesthesia Assessment: Discussed sedation and/or anesthesia options, risks, benefits, and alternatives with patient/parents/legal guardian/POA. Questions invited. The patient/parents/legal guardian/POA seems to understand and agrees to proceedwith anesthesia plan. Reviewed the physical assessment, medical history, allergy history and patient home medications list prior to surgery/procedure/anesthetic and documented any changes. Performed airway and anesthesia risk assessments. Anesthesia Type Anesthesia Type: MAC History Source History Obtained from:: Patient and Chart Anesthesia Focused Assessment* Temperature: 98.3 F Pulse Rate: 94 Blood Pressure: 118/51 Respiratory Rate: 16 Pulse Ox: 95 Oxygen Delivery Method: Room Air Airway Assessment Mouth opens: >3 cm Mallampati Score: IV Teeth Condition: Missing (Edentulous) Neck Range of motion (ROM): Limited ROM (Somewhat decreased) Labs Anesthesia Preop lab: CBC WBC 11.6 K/mm3 (4.4-11.0) H 01/08/25 09:39 5 RBC 1.77 M/mm3 (4.2-5.4) L 01/08/25 09:39 01/08/25 Hgb 5.6 g/dL (12.0-15.0) L* 01/08/25 09:39 5 Hct 17.4 % (37-47) L 01/08/25 09:39 01/08/25 Plt Count 350 K/mm3 (150-450) 01/08/25 09:39 01/08/25 CHEMISTRY Potassium 4.2 mmol/L (3.3-5.1) 01/08/25 09:39 01/08/25 Sodium 140 mmol/L (133-145) 01/08/25 09:39 01/08/25 Magnesium 1.9 mg/dL (1.6-2.6) 10/26/23 05:42 10/26/23 Phosphorus 3.1 mg/dL (2.5-4.9) 10/26/23 05:42 10/26/23 BUN 32 mg/dL (4-19) H 01/08/25 09:39 01/08/25 Creatinine 0.61 mg/dL (0.70-1.20) L 01/08/25 09:39 Glucose 121 mg/dL (70-99) H 01/08/25 09:39 01/08/25 POC Glucose 120 mg/dL (74-106) H 10/29/23 06:05 10/29/23 COAG PT 14.4 SECONDS (11.7-14.9) 01/08/25 09:39 Pre-Assessment Diagnosis/Proposed Procedure Planned Operative Procedure(s): EGD Anesthesia History 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 When Was Last Pacemaker Check QUESTION #4 FULL TEXT: You/Your Family Experience fever (hyperthermia) with Anesthesia Last Oral Intake Last Oral intake: Last Oral Intake NPO since Meds taken in AM with sips of water? 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 Female HX of Motion Sickness HX of N/V After Surgery Non-Smoker Duration of Surgery greater than 60 minutes Number of Risk Factors PONV Score Height & Weight Height & Weight: Anesthesia: Height & Weight Height 5 ft 2.99 in 01/08/25 12:55 Weight: 62.596 kg 01/08/25 12:55 Body Mass Index (BMI) 24.4 01/08/25 12:55 Respiratory Assessment Respiratory Assessment - elevator service technician: Respiratory Tract Infection Hx - elevator service technician Hx Respiratory Tract Infection Any additional information?: Yes Hx Respiratory Tract Infection: No STOP Sleep Apnea STOP Sleep Apnea - elevator service technician: STOP Sleep Apnea - elevator service technician Hx Hypertension Yes 01/08/25 12:55 Hx Sleep Apnea No 01/08/25 12:55 CPAP BIPAP Do you snore loudly (louder No 01/08/25 12:55 than talking or can be heard Do you often feel tired/ No 01/08/25 12:55 fatigued/ sleepy during daytime? Has anyone observed you stop No 01/08/25 12:55 breathing during sleep? STOP Results Negative 01/08/25 12:55 QUESTION #5 FULL TEXT : Do you snore loudly (louder than talking or can be heard through closed doors)? 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 Specify any problems Hx of Preganancy in last 3 N/A 01/08/25 12:55 Months Nurse Filling Out Transfusion WAYNE 01/08/25 12:55 & Questions: Date: 01/08/25 01/08/25 12:55 Time: 13:46 01/08/25 12:55 Patient unable to answer at this time (ie. confused, unrespo /Reproduction History /Reproductive History - elevator service technician: /Reproductive Hx- elevator service technician Hx Now Gestational Age (in weeks): EDC: Hx Hx Para Hx Section SAB Active Medications Active Medications: Current Medications Generic Name Dose Route Start Last Admin Trade Name Freq PRN Reason Stop Dose Admin Acetaminophen 650 mg 01/08/25 12:54 Acetaminophen 325 Mg Tablet PO Q6H PRN PRN Pain 1-10 Or Fever >100.7 Hydrocodone Bitart/Acetaminophen 1 tablet 01/08/25 12:54 01/08/25 14:09 Hydrocodone Bitartrate/Apap 5/325 Tablet PO 1 tablet Q6H PRN Administration Pain 5-10 Or Fever > 100.7 F Albuterol Sulfate 2.5 mg 01/08/25 13:25 Albuterol 2.5 Mg/3 Ml Vial.Neb. INHALATION Q6HWA.RT WILLIE Budesonide 0.5 mg 01/08/25 13:25 Budesonide Respules 0.5 Mg/2 Ml Ampul.Neb. INHALATION Q12H.RT WILLIE Estradiol 0.5 mg 01/09/25 10:00 Estradiol 0.5 Mg Tablet PO DAILY WILLIE Fluticasone Propionate 1 spray 01/08/25 22:00 Fluticasone 0.05% 1 [place] Nasal.Sry NASAL Q12 WILLIE Glycerin/Hypromellose/Polyethylene 2 drp 01/08/25 13:16 Glycerin/Hypromellose/Lkn290 15 Ml Bottle OPHTHALMIC Q4H PRN ITCHY EYES Sodium Chloride 1,000 mls @ 125 mls/hr 01/08/25 12:54 01/08/25 17:07 IV 01/09/25 04:53 125 mls/hr .Q8H WILLEI Infusion Pantoprazole Sodium 80 mg/ 100 mls @ 10 mls/hr 01/08/25 12:54 01/08/25 17:07 Sodium Chloride CONT INF 10 mls/hr Q10H WILLIE Infusion Lidocaine 1 patch 01/08/25 13:15 Lidocaine 5% Patch TOPICAL DAILY PRN pain Loperamide HCl 2 mg 01/08/25 12:54 Loperamide 2 Mg Capsule PO Q4H PRN DIARRHEA/LOOSE STOOLS Loratadine 10 mg 01/09/25 10:00 Loratadine 10 Mg Tablet PO DAILY WILLIE Melatonin 3 mg 01/08/25 22:00 Melatonin 3 Mg Tablet PO QHS PRN INSOMNIA Montelukast Sodium 10 mg 01/09/25 10:00 Montelukast 10 Mg Tablet PO DAILY [facility] Multivitamins/Minerals 1 cap 01/09/25 10:00 Multivitamin (Healthy Eyes) Capsule PO DAILY [facility] Nitroglycerin 0.4 mg 01/08/25 12:54 Nitroglycerin (Inpatient Use) 0.4 Mg Tab.Subl SL Q5M PRN CARDIAC/CHEST PAIN Ondansetron HCl 4 mg 01/08/25 13:16 01/08/25 15:53 Ondansetron Odt 4 Mg Tablet PO 4 mg Q6H PRN Administration nausea and vomiting Ondansetron HCl 4 mg 01/08/25 12:54 Ondansetron 4 Mg/2 Ml Vial IV Q8H PRN PRN NAUSEA/VOMITING Pyridostigmine [place] 60 mg 01/08/25 14:00 01/08/25 14:08 Pyridostigmine [place] 60 Mg Tablet PO 60 mg Q8 WILLIE Administration Rizatriptan Benzoate 10 mg 01/08/25 12:54 Rizatriptan Benzoate 10 Mg Tablet PO DAILY PRN PRN MIGRAINE SYMPTOMS Sertraline HCl 100 mg 01/09/25 10:00 Sertraline 100 Mg Tablet PO DAILY [facility] Simethicone 120 mg 01/08/25 13:17 Simethicone 80 Mg Chewable Tablet PO Q8H PRN abdominal distention Sodium Chloride 10 - 40 ml 01/08/25 13:47 01/08/25 17:07 0.9% Saline Lock 10 Ml Syringe IV 10 ml UD PRN Administration SALINE FLUSH PFSH Medical History Anxiety Depression Chronic pain Osteoarthritis GERD (gastroesophageal reflux disease) Former smoker Pulmonary embolism Hypertension Migraines Anxiety and depression Hx of gastroesophageal reflux (GERD) Fibromyalgia Diabetes mellitus Myasthenia gravis Hx pulmonary embolism Home Medications ?Medication ?Instructions ?Recorded ?Last Taken ?Type montelukast 10 mg tablet 10 mg PO DAILY ALLERGIES 05/1101/04/25 History sertraline 100 mg tablet 100 mg PO DAILY DEPRESSION 1 07/05/18 01/07/25 History albuterol sulfate 90 mcg/actuation 2 puff inhalation Q 4H PRN 10/22/23 01/06/25 History aerosol inhaler shortness of breath or wheez ing budesonide-formoterol HFA 80 2 puff inhalation BID DYS PNEA 10/22/23 01/07/25 History mcg-4.5 mcg/actuation aerosol inhaler estradiol 0.5 mg tablet 0.5 mg PO DAILY POSTMENOPAUS AL 10/22/23 01/06/25 History pyridostigmine bromide 60 mg tablet 60 mg PO Q8H FOR M USCLE STRENGTH 10/22/23 01/08/25 History sumatriptan succinate 100 mg tablet 100 mg PO PRN MIGR BRIAN 10/22/23 Unknown History cholecalciferol (vitamin D3) 25 2,000 unit PO DAILY givens pplement 10/26/23 01/04/25 History mcg (1,000 unit) capsule (Vitamin D3) amlodipine 10 mg tablet 10 mg PO DAILY HTN #0 tabs 0 10/27/23 12/30/24 Rx acetaminophen 325 mg tablet 650 mg PO Q6H PRN pain Unknown History cromolyn 4 % eye drops 2 drp ophthalmic (eye) Q6H P RN 01/08/25 12/24/24 History VERNAL CONJUNCTIVITIS fluticasone propionate 50 1 spray intranasal Q12H NURIS RGY 01/08/25 01/07/25 History mcg/actuation nasal SYMPTOM spray,suspension hydrocodone-acetaminophen 5-325mg 1 tab PO Q6H PRN Carlos n 5-10 Or 01/08/25 01/07/25 History 5mg-325mg Fever > 100.7 F lidocaine 4 % topical patch 1 patch topical DAILY PRN pain 01/08/25 Unknown History (Aspercreme (lidocaine)) loperamide 2 mg capsule 2 mg PO Q4H PRN DIARRHEA 01/06/25 History loratadine 10 mg tablet 10 mg PO DAILY ALLERGIES 01/04/25 History (Allerclear) melatonin 3 mg tablet 3 mg PO PRN Insomnia 5 Unknown History naphazoline-glycerin 0.03 %-0.5 % 2 drp ophthalmic (ey e) Q4H PRN 01/08/25 Unknown History eye drops (Clear Eyes Cooling ITCHY EYES Comfort) naproxen sodium 220 mg capsule 220 mg PO BID PRN pain 01/08/25 01/07/25 History (Aleve) ondansetron HCl 4 mg tablet 4 mg PO Q6H PRN nausea and vomiting 01/08/25 01/07/25 History pantoprazole 40 mg tablet,delayed 40 mg PO DAILY GASTR ITIS 01/08/25 Unknown History release (Protonix) simethicone 125 mg tablet 125 mg PO Q8H PRN abdominal 01/08/25 12/25/24 History (Bicarsim Forte) distention vit A 300 mcg-C 200 mg-E 27 1 tab PO DAILY VERNAL 12/2201/06/25 History mg-lutein 2 mg and minerals tablet CONJUNCTIVITIS (I-Hernan) Allergy/AdvReac Type Severity Reaction Status Date / Time Beta-Blockers Allergy Severe Other Verified 10/22/23 12:02 (Beta-Adrenergic Bloc Horse/Equine Containing AdvReac NEEDS Verified 10/22/23 12:00 Products FOLLOW-UP Sugars, Metabolically Active AdvReac Unknown Verified 10/22/23 12:00 Family History Other Lupus (systemic lupus erythematosus) Scleroderma Surgical History Hx of thymectomy Social History Smoking Status: Former smoker Review of Systems (Anesthesia) ROS Narrative System reviewed and no additional complaints, except as documented. 01/08/251803 <Electronically signed by Johnny rose MD> Date _ Johnny Lentz MD Cosigner Signature: Date CC: ~ Signed [facility] Work Phone: [phone] 439-219908-18-2025 Consult note Author Brennen Friend [facility] Note Date/Time January 08, 2025 5: 54pm [facility] Medical Records Department [address] [place] [address] Consultation - GI 01/08/25 1737 MR#: [id number] Acct: [id number] Name: SADE RUSH Rep #:[id number] : 1945 79 From: Brennen Friend DO PCP: Dr. Ishaan Bernabe MD Status:ADM IN Location: ICU CVICU20 3-1 HPI Consult Data Date of Consult: 01/08/25 HPI Narrative Reason for Consultation: GI bleed HPI Narrative: SADE RUSH, is a 79-year-old woman with myasthenia gravis who presents with acomplaint of black, tarry stools. Her Hb was down to 5.6. She has a history of myasthenia gravis and repeated GI bleeds in the past, requiring blood transfusion. She says she last had a colonoscopy and EGD in 2000 in [place], but has refused any since. Vitals in the ED were temp of 98.3F, CO of 100, BP of 120/80, RR of 18, and she was saturating at 94% on room air. CBC showed hemoglobin of 5.6 with a WBC of 11.6 and platelets of 350. INR is 1.1. Chemistry shows sodium of 142 potassiumof 4.2 and bicarb of 23.6. Creatinine was 0.61. CT abdomen and pelvis was ordered by the ED doctor. Patient refused. When I reviewed patient's I spoke to her extensively about this and informed her that if there was any active GI bleeding source that could be taken care of by interventional radiology, the CT a abdomen and pelvis would help detect this. Patient was initially with lactateand said she would not do it because she felt it was just adding to her medical course. I explained to her that she did have insurance so this could cover it. However she wanted to know exactly how much it would cost. I explained to her that I did not have the information about exactly how much the CT would cause but I felt it was medically necessary under the circumstances. Patient then reluctantly agreed and I did speak to the ED doctor about ordering this. However patient subsequently declined this. She has been admitted to the ICU guido managed for acute on chronic anemia due to GI bleed. She was transfused with1 unit of packed red blood cells in the ED. [facility] Medical History Anxiety Depression Chronic pain Osteoarthritis GERD (gastroesophageal reflux disease) Former smoker Pulmonary embolism Hypertension Migraines Anxiety and depression Hx of gastroesophageal reflux (GERD) Fibromyalgia Diabetes mellitus Myasthenia gravis Hx pulmonary embolism Home Medications ?Medication ?Instructions ?Recorded ?Last Taken ?Type montelukast 10 mg tablet 10 mg PO DAILY ALLERGIES 05/1101/04/25 History sertraline 100 mg tablet 100 mg PO DAILY DEPRESSION 1 07/05/18 01/07/25 History albuterol sulfate 90 mcg/actuation 2 puff inhalation Q 4H PRN 10/22/23 01/06/25 History aerosol inhaler shortness of breath or wheez ing budesonide-formoterol HFA 80 2 puff inhalation BID DYS PNEA 10/22/23 01/07/25 History mcg-4.5 mcg/actuation aerosol inhaler estradiol 0.5 mg tablet 0.5 mg PO DAILY POSTMENOPAUS AL 10/22/23 01/06/25 History pyridostigmine bromide 60 mg tablet 60 mg PO Q8H FOR M USCLE STRENGTH 10/22/23 01/07/25 History sumatriptan succinate 100 mg tablet 100 mg PO PRN MIGR BRIAN 10/22/23 Unknown History cholecalciferol (vitamin D3) 25 2,000 unit PO DAILY givens pplement 10/26/23 01/04/25 History mcg (1,000 unit) capsule (Vitamin D3) amlodipine 10 mg tablet 10 mg PO DAILY HTN #0 tabs 0 10/27/23 12/30/24 Rx acetaminophen 325 mg tablet 650 mg PO Q6H PRN pain Unknown History cromolyn 4 % eye drops 2 drp ophthalmic (eye) Q6H P RN 01/08/25 12/24/24 History VERNAL CONJUNCTIVITIS fluticasone propionate 50 1 spray intranasal Q12H NURIS RGY 01/08/25 01/07/25 History mcg/actuation nasal SYMPTOM spray,suspension hydrocodone-acetaminophen 5-325mg 1 tab PO Q6H PRN Carlos n 5-10 Or 01/08/25 01/07/25 History 5mg-325mg Fever > 100.7 F lidocaine 4 % topical patch 1 patch topical DAILY PRN pain 01/08/25 Unknown History (Aspercreme (lidocaine)) loperamide 2 mg capsule 2 mg PO Q4H PRN DIARRHEA 01/06/25 History loratadine 10 mg tablet 10 mg PO DAILY ALLERGIES 01/04/25 History (Allerclear) melatonin 3 mg tablet 3 mg PO PRN Insomnia 5 Unknown History naphazoline-glycerin 0.03 %-0.5 % 2 drp ophthalmic (ey e) Q4H PRN 01/08/25 Unknown History eye drops (Clear Eyes Cooling ITCHY EYES Comfort) naproxen sodium 220 mg capsule 220 mg PO BID PRN pain 01/08/25 01/07/25 History (Aleve) ondansetron HCl 4 mg tablet 4 mg PO Q6H PRN nausea and vomiting 01/08/25 01/07/25 History pantoprazole 40 mg tablet,delayed 40 mg PO DAILY GASTR ITIS 01/08/25 Unknown History release (Protonix) simethicone 125 mg tablet 125 mg PO Q8H PRN abdominal 01/08/25 12/25/24 History (Bicarsim Forte) distention vit A 300 mcg-C 200 mg-E 27 1 tab PO DAILY VERNAL 12/2201/06/25 History mg-lutein 2 mg and minerals tablet CONJUNCTIVITIS (I-Hernan) Allergy/AdvReac Type Severity Reaction Status Date / Time Beta-Blockers Allergy Severe Other Verified 10/22/23 12:02 (Beta-Adrenergic Bloc Horse/Equine Containing AdvReac NEEDS Verified 10/22/23 12:00 Products FOLLOW-UP Sugars, Metabolically Active AdvReac Unknown Verified 10/22/23 12:00 Family History Other Lupus (systemic lupus erythematosus) Scleroderma Surgical History Hx of thymectomy Social History Smoking Status: Former smoker ROS Constitutional Constitutional: Denies fatigue, fever(s), poor appetite, weight gain or weight loss Gastrointestinal Gastrointestinal: Denies belching, bloating, change in bowel habits, change in stool character, chewing difficulty, coffee ground emesis, constipation, cramping, diarrhea, dyspepsia, dysphagia, early satiety, excessive flatus, fecalincontinence, heartburn, hematemesis, hematochezia, hemorrhoids, loose stools, melena, nausea, odynophagia, rectal bleeding, tenesmus, vomiting or weight changes Physical Exam Const alert, oriented x3 and no apparent distress Constitutional Narrative: visibly pale, animated. HEENT normocephalic, head/scalp atraumatic, hearing grossly normal bilaterally and moist oral mucous membranes Mouth: oral and palatal mucosa normal Eyes EOMs intact bilaterally and conjunctivae normal Neck supple and no JVD Resp normal respiratory effort, no use of accessory muscles and clear to auscultationbilaterally Cardio regular rate, regular rhythm, S1 normal heart sound, S2 normal heart sound and no murmurs GI normal to inspection, nondistended, normoactive bowel sounds, soft to palpation,non-tender and non-distended Extremity normal to inspection Neuro oriented x3 and CN's II-XII intact bilaterally Neuro Narrative: has chronic bilateral LE weakness due to myasthenia gravis Sensorium / Orientation: awake and alert Psych affect normal Lab / Micro Data 01/08/25 09:39 01/08/25 09:39 Labs: Laboratory Results - last 24 hr 01/08/25 09:39: WBC 11.6 H, RBC 1.77 L, Hgb 5.6 L*, Hct 17.4 L, MCV 98.3, MCH 31.6, MCHC 32.2, RDW Std Deviation 42.6, RDW Coeff of Meir 12.3, Plt Count 350, MPV 11.0, Immature Gran % (Auto) 0.500, Neut % (Auto) 72.0 H, Lymph % (Auto) 20.1, Jerauld % (Auto) 6.3, Eos % (Auto) 0.8, Baso % (Auto) 0.3, Absolute Neuts (auto) 8.3 H, Absolute Lymphs (auto) 2.33, Nucleated RBC % 0, PT 14.4, INR 1.1, APTT 24.3, Sodium 140, Potassium 4.2, Chloride 107, Carbon Dioxide 23.6, Anion Gap 9, BUN 32 H, Creatinine 0.61 L, Estim Creat Clear Calc 55.63, Est GFR (MDRD)Non-Af 92, BUN/Creatinine Ratio 52.6 H, Glucose 121 H, Calcium 9.0, Total Bilirubin 0.23, AST 20, ALT 21, Alkaline Phosphatase 63, Total Protein 5.4 L, Albumin 3.4, Globulin 2.1 L, Albumin/Globulin Ratio 1.6, Lipase 28, Blood Type OPOSITIVE, Antibody Screen NEGATIVE, Crossmatch See Detail 01/08/25 09:39: Crossmatch See Detail Micro: Microbiology 01/08/25 10:42 Stool Stool Occult Blood (RUTH ANN) - Final Occult Blood Positive Assessment & Plan Assessment/Plan (1) Acute anemia: (2) GI bleed: PLAN: Plan 79-year-old with history of myasthenia gravis with fatigue, weakness and melanotic stools acute on chronic anemia due to GI bleed. She will undergo an upper endoscopy. She was explained alternatives, risk and benefits including with any bleeding, infection, sepsis, perforation, need for surgery . She will have an ASA of 3. Charges/Coding Visit Charges Inpatient E&M: 65842 Init Hosp L3 01/08/25 5086 <Electronically signed by Brennen Foy DO> Cosigner Signature (if applicable): CC: Dr. Ishaan Bernabe MD~ Signed [facility] Work Phone: 1(636) 303-342608-18-2025 Consult note [facility] Medical Records Department [address] [place] [address] Anesthesia Postop Eval I 01/08/25 190 MR#: [id number] Acct: [id number] Name: SADE RUSH Rep #:[id number] : 1945 79 From: Johnny Lentz MD PCP: Dr. Ishaan Bernabe MD Status:ADM IN Y Race: C Location: ICU CVICU 203- Anesthesia: Postop Eval I Current Vital Signs Temperature: 99.4 F Pulse Rate: 105 Blood Pressure: 92/59 Respiratory Rate: 16 Pulse Ox: 97 Oxygen Delivery Method: Room Air Assessment Airway patent: Yes Spontaneous unlabored respirations: Yes Mental status: Awake and Calm nausea: No Vomiting: No Anesthesia Complication: No Fluid Hydration Crystalloid volume administer (ml): 300 Total IV fluid infused: 300 Progress Note Anesthesia document: Postop Eval 1 completed: Yes 01/08/25 1907 milton CAGLE> Date _ Johnny Lentz MD Cosigner Signature: Date CC: ~ Signed [facility]08-18-2025 Procedure note [facility] Medical Records Department [address] [place] [address] EGD Report MR#: [id number] Acct: [id number] Name: SADE RUSH Rep #:[id number] : 1945 79 From: Brennen Foy DO PCP: Dr. Ishaan Bernabe MD Status:ADM IN Patient Name: Sade Rush Procedure Date: 01/08/2025 6:33 PM Date of : 1945 Age: 79 Procedure: Upper GI endoscopy Indications: Iron deficiency anemia, Melena Providers: Brennen Foy DO Medicines: Monitored Anesthesia Care Patient Profile: This is a 79 year old female. Refer to note in patient chart for documentation of history and physical. Patient has symptoms. Her most recent EGD for treatment of bleeding. Complications: No immediate complications. Procedure: Pre-Anesthesia Assessment: - Prior to the procedure, a History and Physical was performed, and patient medications and allergies were reviewed. The patient is competent. The risks and benefits of the procedure and the sedation options and risks were discussed with the patient. All questions were answered and informed consent was obtained. Patient identification and proposed procedure were verified by the physician. Mental Status Examination: normal. Prophylactic Antibiotics: The patient does not require prophylactic antibiotics. Prior Anticoagulants: The patient has taken no anticoagulant or antiplatelet agents except for NSAID medication. ASA Grade Assessment: II - A patient with mild systemic disease. After reviewing the risks and benefits, the patient was deemed in satisfactory condition to undergo the procedure. The anesthesia plan was to use monitored anesthesia care (MAC). Immediately prior to administration of medications, the patient was re-assessed for adequacy to receive sedatives. The heart rate, respiratory rate, oxygen saturations, blood pressure, adequacy of pulmonary ventilation, and response to care were monitored throughout the procedure. The physical status of the patient was re-assessed after the procedure. After obtaining informed consent, the endoscope was passed under direct vision. Throughout the procedure, the patient's blood pressure, pulse, and oxygen saturations were monitored continuously. The colonoscope was introduced through the mouth, and advanced to the fourth part of the duodenum. Small bowel enteroscopy was deemed necessary. The upper GI endoscopy was accomplished without difficulty. The patient tolerated the procedure well. Scope In: 6:47:07 PM Scope Out: 6:54:24 PM Total Procedure Duration Time 0 hours 7 minutes 17 seconds Findings: The examined esophagus was normal. No gross lesions were noted in the entire examined stomach. A single large angiodysplastic lesion with bleeding was found in the first portion of the duodenum. Coagulation for hemostasis using heater probe was successful. To stop active bleeding, one hemostatic clip was successfully placed. Clip clinical supervisor: Somo. There was no bleeding at the end of the procedure. Impression: - Normal esophagus. - No gross lesions in the entire stomach. 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 Treated with a heater probe. Clip was placed. Clip clinical supervisor: Somo. - No specimens collected. Recommendation: - Return patient to ICU for ongoing care. - Full liquid diet today. - Continue present medications. - PPI drip for 24 hours - Carafate 3 times a day Procedure Code(s): --- Professional --- 97275, Small intestinal endoscopy, enteroscopy beyond second portion of duodenum, not including ileum; with control of bleeding (eg, injection, bipolar cautery, unipolar cautery, laser, heater probe, stapler, plasma complaint evaluation supervisor) CPT copyright 2021 [employer]. All rights reserved. The codes documented in this report are preliminary and upon retail sales lead review may be revised to meet current compliance requirements. Brennen Foy DO 01/08/2025 6:58:42 PM This report has been signed electronically. Number of Addenda: 0 Note Initiated On: 01/08/2025 6:33 PM 01/08/25 1858 Date _ Brennen Foy DO Cosigner Signature: Date (if indicated) CC: Dr. Ishaan Bernabe MD; Brennen Fyo DO ~ Date Dictated: 01/08/251832 Date Transcribed: Sharemilker: RF Signed [facility]08-18-2025 Procedure note [facility] Medical Records Department [address] [place] [address] Provation Physician Letter MR#: [id number] Acct: [id number] Name: SADE RUSH Rep #:[id number] : 1945 79 From: Brennen Foy DO PCP: Dr. Ishaan Bernabe MD Status:ADM IN 01/08/2025 Ishaan Bernabe [address] [place] [address] Re : Upper GI endoscopy procedure for Sade Rush Dear Dr. Bernabe This procedure was performed on Wednesday, January 08, 2025. My impressions and recommendations are as follows: Impressions : - Normal esophagus. - No gross lesions in the entire stomach. 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 Treated with a heater probe. Clip was placed. Clip clinical supervisor: Somo. - No specimens collected. Recommendations : - Return patient to ICU for ongoing care. - Full liquid diet today. - Continue present medications. - PPI drip for 24 hours - Carafate 3 times a day My findings are described in the full procedure note, which is enclosed. If I can be of further assistance, please feel free to contact me at . Sincerely, Brennen Foy DO 01/08/2025 6:58:42 PM This report has been signed electronically. 01/08/251857 Date _ Brennen Friend DO Cosigner Signature: Date (if indicated) CC: Dr. Cortez Ramos MD; Dr. Eric López MD; Dr. Adan Rosa MD; Dr. Jesus Clemens MD; Dr. Nicholas Graham DO; Dr. Bishop Wheeler MD; Dr. Aidan Arteaga MD; Dr. Sina Duarte MD; Dr. Ishaan Bernabe MD; Dr. Fidel Benoit MD; Dr. Zeb Dubose MD; Dr. Linnea Valentino MD; Dr. Sinai Gurrola MD; Dr. Eliza Ha MD; Dr. Katy De La Rosa MD; Dr. Red Lyles MD; Dr. Joseph Taylor MD; Dr. Marquise Montano MD; Dr. Ghada Meyers MD; Dr. Nayla Mays MD; Dr. Christiano Palmer DO; Dr. Joseph Montiel DO; Dr. Moses Turner MD; Dr. Arpan MD; Dr. Lashawn Pierce MD ~ Date Dictated: 01/08/25 1833 Date Transcribed: Sharemilker: RF Signed [facility]08-18-2025 Radiology Diagnostic study note [facility] Imaging Services [address] [place] [address] Abdomen/Pelvis without Cont MR#: [id number] Acct: [id number] Name: SADE RUSH Rep #: [id number] : 1945 F 79 From: Aashish Sterling MD PCP: Dr. Ishaan Bernabe MD Status: ADM IN Study:Abdomen/Pelvis without Cont Date of Exa m: 01/08/25 Exam# [id number] Ordering Dr: Marquise Montano MD PROCEDURE: ABDOMEN/PELVIS WITHOUT CONT 01/08/2025 REASON FOR EXAM: INTRACTABLE N/V TECHNIQUE: ABDOMEN/PELVIS WITHOUT CONT Noncontrast technique limits evaluation of the abdominal and pelvic viscera. Coronal and Sagittal reconstruction series were provided. One or more dose reduction techniques were used (e.g., Automated exposure control, adjustment of the mA and/or kV according to patient size, use of iterative reconstruction technique). RADIATION DOSE SUMMARY: CTDlvol: 12 mGy DLP: 629 mGycm FINDINGS: The peripheral soft tissues unremarkable. Degenerative changes of the spine. Grade 1 anterolisthesis of L4 on L5. Left adnexal 5.8 x 9.1 cm fluid collection. The liver is unremarkable. The gallbladder is not visualized. The pancreas, spleen, adrenals are unremarkable. Small bilateral renal calcifications likely representing nonobstructive calculi. No hydronephrosis. The urinary bladder is unremarkable. Normal caliber large and small bowel without surrounding inflammatory changes. CT/Abdomen/Pelvis without Cont IMPRESSION: Left adnexal cystic collection. Further characterization with ultrasound is recommended. No other acute abnormalities of the abdomen or pelvis. Reading Location: [facility] CC: Dr. Ishaan Bernabe MD; Dr. Marquise Montano MD ~ Sharemilker: Signed [facility]08-18-2025 Consult note Author Marquise Montano [facility] Note Date/Time January 08, 2025 4: 31pm [facility] Medical Records Department [address] [place] [address] Consultation - Take Down Sorter 01/08/25 1610 MR#: [id number] Acct: [id number] Name: SADE RUSH Rep #:[id number] : 1945 79 From: Marquise Montano MD PCP: Dr. Ishaan Bernabe MD Status:ADM IN Location: ICU CVICU20 3-1 HPI Consult Data Date of Consult: 01/08/25 HPI Narrative Reason for Consultation: Severe anemia, ?GIB, intractable N, melena, poor PO intake x1 week HPI Narrative: 79Y F PMH myasthenia gravis & prior GIB with EGD in 2000 who presented from [place] with 1 week Hx of poor PO intake, nausea & melena. She denies fevers/chills/chest pain/SOB, abdominal pain, fever or chills, any coffee-groundemesis or any bright red bleeding per rectum. In the ED she was noted to have aHgb of 5.6. She refused CT scan and is currently refusing EGD. She is concerned with costs, radiation exposure and the risk of getting meds that could worsen her MG. She is receiving PRBCs. Vitals stable. Continues to have severe nausea but did receive Zofran ~10 min ago. [facility] Medical History Anxiety Depression Chronic pain Osteoarthritis GERD (gastroesophageal reflux disease) Former smoker Pulmonary embolism Hypertension Migraines Anxiety and depression Hx of gastroesophageal reflux (GERD) Fibromyalgia Diabetes mellitus Myasthenia gravis Hx pulmonary embolism Home Medications ?Medication ?Instructions ?Recorded ?Last Taken ?Type montelukast 10 mg tablet 10 mg PO DAILY ALLERGIES 05/1101/04/25 History sertraline 100 mg tablet 100 mg PO DAILY DEPRESSION 1 07/05/18 01/07/25 History albuterol sulfate 90 mcg/actuation 2 puff inhalation Q 4H PRN 10/22/23 01/06/25 History aerosol inhaler shortness of breath or wheez ing budesonide-formoterol HFA 80 2 puff inhalation BID DYS PNEA 10/22/23 01/07/25 History mcg-4.5 mcg/actuation aerosol inhaler estradiol 0.5 mg tablet 0.5 mg PO DAILY POSTMENOPAUS AL 10/22/23 01/06/25 History pyridostigmine bromide 60 mg tablet 60 mg PO Q8H FOR M USCLE STRENGTH 10/22/23 01/07/25 History sumatriptan succinate 100 mg tablet 100 mg PO PRN MIGR BRIAN 10/22/23 Unknown History cholecalciferol (vitamin D3) 25 2,000 unit PO DAILY givens pplement 10/26/23 01/04/25 History mcg (1,000 unit) capsule (Vitamin D3) amlodipine 10 mg tablet 10 mg PO DAILY HTN #0 tabs 0 10/27/23 12/30/24 Rx acetaminophen 325 mg tablet 650 mg PO Q6H PRN pain Unknown History cromolyn 4 % eye drops 2 drp ophthalmic (eye) Q6H P RN 01/08/25 12/24/24 History VERNAL CONJUNCTIVITIS fluticasone propionate 50 1 spray intranasal Q12H NURIS RGY 01/08/25 01/07/25 History mcg/actuation nasal SYMPTOM spray,suspension hydrocodone-acetaminophen 5-325mg 1 tab PO Q6H PRN Carlos n 5-10 Or 01/08/25 01/07/25 History 5mg-325mg Fever > 100.7 F lidocaine 4 % topical patch 1 patch topical DAILY PRN pain 01/08/25 Unknown History (Aspercreme (lidocaine)) loperamide 2 mg capsule 2 mg PO Q4H PRN DIARRHEA 01/06/25 History loratadine 10 mg tablet 10 mg PO DAILY ALLERGIES 01/04/25 History (Allerclear) melatonin 3 mg tablet 3 mg PO PRN Insomnia 5 Unknown History naphazoline-glycerin 0.03 %-0.5 % 2 drp ophthalmic (ey e) Q4H PRN 01/08/25 Unknown History eye drops (Clear Eyes Cooling ITCHY EYES Comfort) naproxen sodium 220 mg capsule 220 mg PO BID PRN pain 01/08/25 01/07/25 History (Aleve) ondansetron HCl 4 mg tablet 4 mg PO Q6H PRN nausea and vomiting 01/08/25 01/07/25 History pantoprazole 40 mg tablet,delayed 40 mg PO DAILY GASTR ITIS 01/08/25 Unknown History release (Protonix) simethicone 125 mg tablet 125 mg PO Q8H PRN abdominal 01/08/25 12/25/24 History (Bicarsim Forte) distention vit A 300 mcg-C 200 mg-E 27 1 tab PO DAILY VERNAL 12/2201/06/25 History mg-lutein 2 mg and minerals tablet CONJUNCTIVITIS (I-Hernan) Allergy/AdvReac Type Severity Reaction Status Date / Time Beta-Blockers Allergy Severe Other Verified 10/22/23 12:02 (Beta-Adrenergic Bloc Horse/Equine Containing AdvReac NEEDS Verified 10/22/23 12:00 Products FOLLOW-UP Sugars, Metabolically Active AdvReac Unknown Verified 10/22/23 12:00 Family History Other Lupus (systemic lupus erythematosus) Scleroderma Surgical History Hx of thymectomy Social History Smoking Status: Former smoker ROS ROS Narrative Full 12 point ROS completed and neg unless stated in HPI above. Objective Data Objective Data Vital Signs: Vital Signs Last response 3 Temperature 36.8 C 01/08/25 15:49 Temperature Source Oral 01/08/25 15:49 Pulse Rate 88 01/08/25 16:00 Respiratory Rate 16 01/08/25 16:00 Respiratory Pattern Normal 01/08/25 09:58 Blood Pressure 115/48 L 01/08/25 16:00 Blood Pressure Mean 70 01/08/25 16:00 Blood Pressure Source Monitor 01/08/25 16:00 Blood Pressure Position Supine 01/08/25 16:00 Blood Pressure Location Left Arm 01/08/25 16:00 Pulse Ox 98 01/08/25 16:00 Oxygen Delivery Method Room Air 01/08/25 16:00 I&O: I&O Last 24 Hours 3 01/07/25 01/08/25 01/08/25 23:59 11:59 23:59 Intake Total 0 / 400 400 / 400 Balance 0 / 400 400 / 400 I&O: Total Stay 3 01/08/25 09:29 thru 01/08/25 15:49 Intake Total 400 Balance 400 Current Meds Ordered / Administered: Current meds ordered / Administered 3 Generic Name Dose Route Start Last Admin Trade Name Freq PRN Reason Stop Dose Admin Acetaminophen 650 mg 01/08/25 12:54 Acetaminophen 325 Mg Tablet PO Q6H PRN PRN Pain 1-10 Or Fever >100.7 Hydrocodone Bitart/Acetaminophen 1 tablet 01/08/25 12:54 01/08/25 14:09 Hydrocodone Bitartrate/Apap 5/325 Tablet PO 1 tablet Q6H PRN Administration Pain 5-10 Or Fever > 100.7 F Albuterol Sulfate 2.5 mg 01/08/25 13:25 Albuterol 2.5 Mg/3 Ml Vial.Neb. INHALATION Q6HWA.RT WILLIE Budesonide 0.5 mg 01/08/25 13:25 Budesonide Respules 0.5 Mg/2 Ml Ampul.Neb. INHALATION Q12H.RT WILLIE Estradiol 0.5 mg 01/09/25 10:00 Estradiol 0.5 Mg Tablet PO DAILY [facility] Fluticasone Propionate 1 spray 01/08/25 22:00 Fluticasone 0.05% 1 [place] Nasal.Sry NASAL Q12 [facility] Glycerin/Hypromellose/Polyethylene 2 drp 01/08/25 13:16 Glycerin/Hypromellose/[id number] 15 Ml Bottle OPHTHALMIC Q4H PRN ITCHY EYES Sodium Chloride 1,000 mls @ 125 mls/hr 01/08/25 12:54 01/08/25 14:08 IV 01/09/25 04:53 125 mls/hr .Q8H WILLIE Administration Pantoprazole Sodium 80 mg/ 100 mls @ 10 mls/hr 01/08/25 12:54 01/08/25 14:08 Sodium Chloride CONT INF 10 mls/hr Q10H [facility] Administration Lidocaine 1 patch 01/08/25 13:15 Lidocaine 5% Patch TOPICAL DAILY PRN pain Loperamide HCl 2 mg 01/08/25 12:54 Loperamide 2 Mg Capsule PO Q4H PRN DIARRHEA/LOOSE STOOLS Loratadine 10 mg 01/09/25 10:00 Loratadine 10 Mg Tablet PO DAILY [facility] Melatonin 3 mg 01/08/25 22:00 Melatonin 3 Mg Tablet PO QHS PRN INSOMNIA Montelukast Sodium 10 mg 01/09/25 10:00 Montelukast 10 Mg Tablet PO DAILY [facility] Multivitamins/Minerals 1 cap 01/09/25 10:00 Multivitamin (Healthy Eyes) Capsule PO DAILY [facility] Nitroglycerin 0.4 mg 01/08/25 12:54 Nitroglycerin (Inpatient Use) 0.4 Mg Tab.Subl SL Q5M PRN CARDIAC/CHEST PAIN Ondansetron HCl 4 mg 01/08/25 13:16 01/08/25 15:53 Ondansetron Odt 4 Mg Tablet PO 4 mg Q6H PRN Administration nausea and vomiting Ondansetron HCl 4 mg 01/08/25 12:54 Ondansetron 4 Mg/2 Ml Vial IV Q8H PRN PRN NAUSEA/VOMITING Pyridostigmine [place] 60 mg 01/08/25 14:00 01/08/25 14:08 Pyridostigmine [place] 60 Mg Tablet PO 60 mg Q8 [facility] Administration Rizatriptan Benzoate 10 mg 01/08/25 12:54 Rizatriptan Benzoate 10 Mg Tablet PO DAILY PRN PRN MIGRAINE SYMPTOMS Sertraline HCl 100 mg 01/09/25 10:00 Sertraline 100 Mg Tablet PO DAILY WILLIE Simethicone 120 mg 01/08/25 13:17 Simethicone 80 Mg Chewable Tablet PO Q8H PRN abdominal distention Sodium Chloride 10 - 40 ml 01/08/25 13:47 0.9% Saline Lock 10 Ml Syringe IV UD PRN SALINE FLUSH Lab / Micro Data 01/08/25 09:39 01/08/25 09:39 Labs: Laboratory Results - last 24 hr 01/08/25 09:39: WBC 11.6 H, RBC 1.77 L, Hgb 5.6 L*, Hct 17.4 L, MCV 98.3, MCH 31.6, MCHC 32.2, RDW Std Deviation 42.6, RDW Coeff of Meir 12.3, Plt Count 350, MPV 11.0, Immature Gran % (Auto) 0.500, Neut % (Auto) 72.0 H, Lymph % (Auto) 20.1, Jerauld % (Auto) 6.3, Eos % (Auto) 0.8, Baso % (Auto) 0.3, Absolute Neuts (auto) 8.3 H, Absolute Lymphs (auto) 2.33, Nucleated RBC % 0, PT 14.4, INR 1.1, APTT 24.3, Sodium 140, Potassium 4.2, Chloride 107, Carbon Dioxide 23.6, Anion Gap 9, BUN 32 H, Creatinine 0.61 L, Estim Creat Clear Calc 55.63, Est GFR (MDRD)Non-Af 92, BUN/Creatinine Ratio 52.6 H, Glucose 121 H, Calcium 9.0, Total Bilirubin 0.23, AST 20, ALT 21, Alkaline Phosphatase 63, Total Protein 5.4 L, Albumin 3.4, Globulin 2.1 L, Albumin/Globulin Ratio 1.6, Lipase 28, Blood Type OPOSITIVE, Antibody Screen NEGATIVE, Crossmatch See Detail 01/08/25 09:39: Crossmatch See Detail Micro: Microbiology 01/08/25 10:42 Stool Stool Occult Blood (RUTH ANN) - Final Occult Blood Positive Assessment and Plan . Assessment and plan: PE: General: acute on chronically ill appearing elderly frail female in no distress HEENT: anicteric Sclera, nl nose; supple neck, no masses Cardiovascular: RRR; +S1/S2; No rubs, gallops; no displaced PM Respiratory: clear; no crackles, wheezes, or rhonchi Abdominal: Soft; Non-tender; Non distended; hypoBS x 4; No Hepatosplenomegaly Extremities: Warm, well perfused; No clubbing, cyanosis; capillary refill < 2 sec Skin: intact, no rashes Neurological: A&Ox3; no gross deficits appreciated A/P #Acute blood loss anemia: sp PRBC; F/U repeat Hgb #Suspected GIB: cont PPI IV BID; pending GI consult; counseled patient on the importance of EGD and she currently states she would be willing to proceed aftertalking to anesthesia team about sedation plan #Intractable nausea: cont antiemetics; get CT A/P (pt OK with imaging at this time) #Myasthenia gravis: cont home meds #Chronic anemia with prior Hx of transfusions and remote Hx EGD NPO SCDs, PPI Guarded prognosis Critical Care Time: 60 min The entirety of this encounter was done via Telemedicine 01/08/25 1631 <Electronically signed by Marquise Montano MD> Cosigner Signature (if applicable): CC: Dr. Ishaan Bernabe MD~ Signed [facility] Work Phone: 1(451) 855-615508-18-2025 History and physical note Author [facility] Note Date/Time January 08, 2025 4: 28pm [facility] Medical Records Department [address] [place] [address] H&P Exam - Hospitalist 01/08/25 1151 MR#: [id number] Acct: [id number] Name: SADE RUSH Rep #:[id number] : 1945 79 From: Katy De La Rosa MD PCP: Dr. Ishaan Bernabe MD Status:ADM IN Location: ICU CVICU20 3-1 HPI - General General Date of Admission: 01/08/25 Date of Service: 01/08/25 Chief Complaint: abnormal labs HPI Narrative SADE RUSH, is a 79 F with a PMH as outlined who presents with a complaint ofblack, tarry stools. Her Hb was down to 5.6. She has a history of myasthenia gravis and repeated GI bleeds in the past, requiring blood transfusion. She saysshe last had a colonoscopy and EGD in 2000 in [place], but has refused any since. She denied any abdominal pain, fever or chills, any coffee-ground emesisor any bright red bleeding per rectum. She denies any weight loss. Review of systems otherwise negative. Vitals in the ED were temp of 98.3F, CO of 100, BP of 120/80, RR of 18, and she was saturating at 94% on room air. CBC showed hemoglobin of 5.6 with a WBC of 11.6 and platelets of 350. INR is 1.1. Chemistry shows sodium of 142 potassiumof 4.2 and bicarb of 23.6. Creatinine was 0.61. CT abdomen and pelvis was ordered by the ED doctor. Patient refused. When I reviewed patient's I spoke to her extensively about this and informed her that if there was any active GI bleeding source that could be taken care of by interventional radiology, the CT a abdomen and pelvis would help detect this. Patient was initially with lactateand said she would not do it because she felt it was just adding to her medical course. I explained to her that she did have insurance so this could cover it. However she wanted to know exactly how much it would cost. I explained to her that I did not have the information about exactly how much the CT would cause but I felt it was medically necessary under the circumstances. Patient then reluctantly agreed and I did speak to the ED doctor about ordering this. However patient subsequently declined this. She has been admitted to the ICU guido managed for acute on chronic anemia due to GI bleed. She was transfused with1 unit of packed red blood cells in the ED. FOR[facility]LY [facility], [facility] Medical History Anxiety Depression Chronic pain Osteoarthritis GERD (gastroesophageal reflux disease) Former smoker Pulmonary embolism Hypertension Migraines Anxiety and depression Hx of gastroesophageal reflux (GERD) Fibromyalgia Diabetes mellitus Myasthenia gravis Hx pulmonary embolism Home Medications ?Medication ?Instructions ?Recorded ?Last Taken ?Type montelukast 10 mg tablet 10 mg PO DAILY ALLERGIES 05/1101/04/25 History sertraline 100 mg tablet 100 mg PO DAILY DEPRESSION 1 07/05/18 01/07/25 History albuterol sulfate 90 mcg/actuation 2 puff inhalation Q 4H PRN 10/22/23 01/06/25 History aerosol inhaler shortness of breath or wheez ing budesonide-formoterol HFA 80 2 puff inhalation BID DYS PNEA 10/22/23 01/07/25 History mcg-4.5 mcg/actuation aerosol inhaler estradiol 0.5 mg tablet 0.5 mg PO DAILY POSTMENOPAUS AL 10/22/23 01/06/25 History pyridostigmine bromide 60 mg tablet 60 mg PO Q8H FOR M USCLE STRENGTH 10/22/23 01/07/25 History sumatriptan succinate 100 mg tablet 100 mg PO PRN MIGR BRIAN 10/22/23 Unknown History cholecalciferol (vitamin D3) 25 2,000 unit PO DAILY givens pplement 10/26/23 01/04/25 History mcg (1,000 unit) capsule (Vitamin D3) amlodipine 10 mg tablet 10 mg PO DAILY HTN #0 tabs 0 10/27/23 12/30/24 Rx acetaminophen 325 mg tablet 650 mg PO Q6H PRN pain Unknown History cromolyn 4 % eye drops 2 drp ophthalmic (eye) Q6H P RN 01/08/25 12/24/24 History VERNAL CONJUNCTIVITIS fluticasone propionate 50 1 spray intranasal Q12H NURIS RGY 01/08/25 01/07/25 History mcg/actuation nasal SYMPTOM spray,suspension hydrocodone-acetaminophen 5-325mg 1 tab PO Q6H PRN Carlos n 5-10 Or 01/08/25 01/07/25 History 5mg-325mg Fever > 100.7 F lidocaine 4 % topical patch 1 patch topical DAILY PRN pain 01/08/25 Unknown History (Aspercreme (lidocaine)) loperamide 2 mg capsule 2 mg PO Q4H PRN DIARRHEA 01/06/25 History loratadine 10 mg tablet 10 mg PO DAILY ALLERGIES 01/04/25 History (Allerclear) melatonin 3 mg tablet 3 mg PO PRN Insomnia 5 Unknown History naphazoline-glycerin 0.03 %-0.5 % 2 drp ophthalmic (ey e) Q4H PRN 01/08/25 Unknown History eye drops (Clear Eyes Cooling ITCHY EYES Comfort) naproxen sodium 220 mg capsule 220 mg PO BID PRN pain 01/08/25 01/07/25 History (Aleve) ondansetron HCl 4 mg tablet 4 mg PO Q6H PRN nausea and vomiting 01/08/25 01/07/25 History pantoprazole 40 mg tablet,delayed 40 mg PO DAILY GASTR ITIS 01/08/25 Unknown History release (Protonix) simethicone 125 mg tablet 125 mg PO Q8H PRN abdominal 01/08/25 12/25/24 History (Bicarsim Forte) distention vit A 300 mcg-C 200 mg-E 27 1 tab PO DAILY VERNAL 12/2201/06/25 History mg-lutein 2 mg and minerals tablet CONJUNCTIVITIS (I-Hernan) Allergy/AdvReac Type Severity Reaction Status Date / Time Beta-Blockers Allergy Severe Other Verified 10/22/23 12:02 (Beta-Adrenergic Bloc Horse/Equine Containing AdvReac NEEDS Verified 10/22/23 12:00 Products FOLLOW-UP Sugars, Metabolically Active AdvReac Unknown Verified 10/22/23 12:00 Family History Other Lupus (systemic lupus erythematosus) Scleroderma Surgical History Hx of thymectomy Social History Smoking Status: Former smoker ROS Constitutional Constitutional: Reports fatigue, malaise and weakness; Denies anorexia, chills or fever(s) Eyes Eyes: Denies change in vision ENT HEENT: Denies dysphagia or headache(s) Cardiovascular Cardiovascular: Denies chest pain, dyspnea on exertion, edema, lightheadedness, orthopnea, palpitations, rapid heart rate or syncope Respiratory/Chest Respiratory/Chest: Denies cough, dyspnea or productive cough Gastrointestinal Gastrointestinal: Reports melena; Denies abdominal pain, coffee ground emesis, diarrhea, dyspepsia, hematemesis, hematochezia, nausea or vomiting Genitourinary Genitourinary: Denies burning urination or hematuria Neurologic Neurologic: Denies dizziness, focal weakness, headache(s), numbness, seizures orsyncope Hematologic/Lymphatic Hematologic/Lymphatic: Reports anemia Vital Signs Vital Signs Vital Signs: 01/08/25 09:30 01/08/25 09:58 01/08/25 10:30 Temperature 97.6 F L Temperature Source Temporal Pulse Rate 108 H 102 H Respiratory Rate 18 18 Respiratory Pattern Normal Blood Pressure 155/62 H 124/61 H Blood Pressure Mean 93 82 Blood Pressure Source Pulse Ox 94 98 Oxygen Delivery Method Room Air 01/08/25 11:00 01/08/25 11:40 01/08/25 11:43 Temperature 98 F 98.3 F Temperature Source Oral Oral Pulse Rate 108 H 111 H 106 H Respiratory Rate 18 27 H 15 Respiratory Pattern Blood Pressure 116/78 97/58 L 99/58 L Blood Pressure Mean 90 71 71 Blood Pressure Source Monitor Pulse Ox 98 95 97 Oxygen Delivery Method Room Air Room Air 01/08/25 11:47 Temperature 98.3 F Temperature Source Pulse Rate 106 H Respiratory Rate 15 Respiratory Pattern Blood Pressure 99/58 L Blood Pressure Mean 71 Blood Pressure Source Pulse Ox 97 Oxygen Delivery Method Weight Weight: 156 lb 8.451 oz Body Mass Index (BMI) 27.7 Physical Exam Const alert, oriented x3 and no apparent distress Constitutional Narrative: visibly pale, animated. HEENT normocephalic, head/scalp atraumatic, hearing grossly normal bilaterally and moist oral mucous membranes Mouth: oral and palatal mucosa normal Eyes EOMs intact bilaterally and conjunctivae normal Neck supple and no JVD Resp normal respiratory effort, no use of accessory muscles and clear to auscultationbilaterally Cardio regular rate, regular rhythm, S1 normal heart sound, S2 normal heart sound and no murmurs GI normal to inspection, nondistended, normoactive bowel sounds, soft to palpation,non-tender and non-distended Extremity normal to inspection Neuro oriented x3 and CN's II-XII intact bilaterally Neuro Narrative: has chronic bilateral LE weakness due to myasthenia gravis Sensorium / Orientation: awake and alert Psych affect normal Results Lab / Micro Data 01/08/25 09:39 01/08/25 09:39 Labs: Laboratory Results - last 24 hr 01/08/25 09:39: WBC 11.6 H, RBC 1.77 L, Hgb 5.6 L*, Hct 17.4 L, MCV 98.3, MCH 31.6, MCHC 32.2, RDW Std Deviation 42.6, RDW Coeff of Meir 12.3, Plt Count 350, MPV 11.0, Immature Gran % (Auto) 0.500, Neut % (Auto) 72.0 H, Lymph % (Auto) 20.1, [place] % (Auto) 6.3, Eos % (Auto) 0.8, Baso % (Auto) 0.3, Absolute Neuts (auto) 8.3 H, Absolute Lymphs (auto) 2.33, Nucleated RBC % 0, PT 14.4, INR 1.1, APTT 24.3, Sodium 140, Potassium 4.2, Chloride 107, Carbon Dioxide 23.6, Anion Gap 9, BUN 32 H, Creatinine 0.61 L, Estim Creat Clear Calc 55.63, Est GFR (MDRD)Non-Af 92, BUN/Creatinine Ratio 52.6 H, Glucose 121 H, Calcium 9.0, Total Bilirubin 0.23, AST 20, ALT 21, Alkaline Phosphatase 63, Total Protein 5.4 L, Albumin 3.4, Globulin 2.1 L, Albumin/Globulin Ratio 1.6, Lipase 28, Blood Type OPOSITIVE, Antibody Screen NEGATIVE, Crossmatch See Detail Micro: Microbiology 01/08/25 10:42 Stool Stool Occult Blood (RUTH ANN) - Final Occult Blood Positive Assessment & Plan Assessment/Plan (1) Acute anemia: (2) GI bleed: PLAN: Plan #Acute on chronic anemia due to GI bleed * admitted with a complaint of anemia, per labs done in her SNF. She admitted to melena stools but denied any hematochezia, hematemesis or coffee ground emesis * Hb was 5.6 on admission * stool for occult blood positive. Check iron profile * Transfusion return as appropriate blood cells. GI consulted. Placed on IV pantoprazole drip. * Keep n.p.o. and hydrate with IV fluids. Patient says she has had anemia in the past requiring blood transfusions and had to have EGD and colonoscopy back in 2000 in [place]. She does not remember what it showed. * CT abdomen and pelvis with contrast ordered by ED doctor. Patient refused this. When I spoke to patient about it she was concerned about the cost. I informed her that I felt it was medically necessary and she also had insurance. Patient then agreed to do it but subsequently changed her mind again. * Gastroenterology consulted. Await recs. Critical care also consulted as patient is in the ICU. * Hold any NSAIDs. * #Hypertension: On amlodipine 10 mg daily. #History of myasthenia gravis currently on prior to statement #History of depression: On sertraline #History of chronic pain syndrome: On [place] at home. #History of chronic migraines without aura: On sumatriptan #DVT prophylaxis: SCDs. no anticoagulation due to anemia. COde status: full code * Patient counseled extensively about different types of CODE STATUS including full code, DNR CCA and DNR CCA. Patient elects to be full code. * Total sodf-pd-tkae time 16 minutes. Charges/Coding Visit Charges Inpatient E&M: 42671 Init Hosp L3 Procedures Hospitalists Procedures: 95411 Advncd Care Plan 30 Min 01/08/25 1628 <Electronically signed by Katy De La Rosa MD> Cosigner Signature (if applicable): CC: Dr. Ishaan Bernabe MD; Dr. Katy De La Rosa MD~ Signed [facility] Work Phone: [phone] Consult note [facility] Medical Records Department [address] [place] [address] Pre-Anesthesia Evaluation 01/08/25 1756 MR#: [id number] Acct: [id number] Name: SADE RUSH Rep #:[id number] : 1945 79 From: Johnny Lentz MD PCP: Dr. Ishaan Bernabe MD Status:ADM IN Y Race: C Location: ICU CVICU 203-1 ASA Classification* ASA Classification ASA Classification: 4 Assessment & Plan Anesthesia* Anesthesia Assessment Anesthesia Assessment: Discussed sedation and/or anesthesia options, risks, benefits, and alternatives with patient/parents/legal guardian/POA. Questions invited. The patient/parents/legal guardian/POA seems to understand and agrees to proceedwith anesthesia plan. Reviewed the physical assessment, medical history, allergy history and patient home medications list prior to surgery/procedure/anesthetic and documented any changes. Performed airway and anesthesia risk assessments. Anesthesia Type Anesthesia Type: MAC History Source History Obtained from:: Patient and Chart Anesthesia Focused Assessment* Temperature: 98.3 F Pulse Rate: 94 Blood Pressure: 118/51 Respiratory Rate: 16 Pulse Ox: 95 Oxygen Delivery Method: Room Air Airway Assessment Mouth opens: >3 cm Mallampati Score: IV Teeth Condition: Missing (Edentulous) Neck Range of motion (ROM): Limited ROM (Somewhat decreased) Labs Anesthesia Preop lab: CBC WBC 11.6 K/mm3 (4.4-11.0) H 01/08/25 09:39 5 RBC 1.77 M/mm3 (4.2-5.4) L 01/08/25 09:39 01/08/25 Hgb 5.6 g/dL (12.0-15.0) L* 01/08/25 09:39 5 Hct 17.4 % (37-47) L 01/08/25 09:39 01/08/25 Plt Count 350 K/mm3 (150-450) 01/08/25 09:39 01/08/25 CHEMISTRY Potassium 4.2 mmol/L (3.3-5.1) 01/08/25 09:39 01/08/25 Sodium 140 mmol/L (133-145) 01/08/25 09:39 01/08/25 Magnesium 1.9 mg/dL (1.6-2.6) 10/26/23 05:42 10/26/23 Phosphorus 3.1 mg/dL (2.5-4.9) 10/26/23 05:42 10/26/23 BUN 32 mg/dL (4-19) H 01/08/25 09:39 01/08/25 Creatinine 0.61 mg/dL (0.70-1.20) L 01/08/25 09:39 Glucose 121 mg/dL (70-99) H 01/08/25 09:39 01/08/25 POC Glucose 120 mg/dL (74-106) H 10/29/23 06:05 10/29/23 COAG PT 14.4 SECONDS (11.7-14.9) 01/08/25 09:39 Pre-Assessment Diagnosis/Proposed Procedure Planned Operative Procedure(s): EGD Anesthesia History 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 When Was Last Pacemaker Check QUESTION #4 FULL TEXT: You/Your Family Experience fever (hyperthermia) with Anesthesia Last Oral Intake Last Oral intake: Last Oral Intake NPO since Meds taken in AM with sips of water? 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 Female HX of Motion Sickness HX of N/V After Surgery Non-Smoker Duration of Surgery greater than 60 minutes Number of Risk Factors PONV Score Height & Weight Height & Weight: Anesthesia: Height & Weight Height 5 ft 2.99 in 01/08/25 12:55 Weight: 62.596 kg 01/08/25 12:55 Body Mass Index (BMI) 24.4 01/08/25 12:55 Respiratory Assessment Respiratory Assessment - elevator service technician: Respiratory Tract Infection Hx - elevator service technician Hx Respiratory Tract Infection Any additional information?: Yes Hx Respiratory Tract Infection: No STOP Sleep Apnea STOP Sleep Apnea - elevator service technician: STOP Sleep Apnea - elevator service technician Hx Hypertension Yes 01/08/25 12:55 Hx Sleep Apnea No 01/08/25 12:55 CPAP BIPAP Do you snore loudly (louder No 01/08/25 12:55 than talking or can be heard Do you often feel tired/ No 01/08/25 12:55 fatigued/ sleepy during daytime? Has anyone observed you stop No 01/08/25 12:55 breathing during sleep? STOP Results Negative 01/08/25 12:55 QUESTION #5 FULL TEXT : Do you snore loudly (louder than talking or can be heard through closeddoors)? 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 Specify any problems Hx of Preganancy in last 3 N/A 01/08/25 12:55 Months [facility] 01/08/25 12:55 & Questions: Date: 01/08/25 01/08/25 12:55 Time: 13:46 01/08/25 12:55 Patient unable to answer at this time (ie. confused, unrespo /Reproduction History /Reproductive History - elevator service technician: /Reproductive Hx- elevator service technician Hx Now Gestational Age (in weeks): EDC: Hx Hx Para Hx Section SAB Active Medications Active Medications: Current Medications Generic Name Dose Route Start Last Admin Trade Name Freq PRN Reason Stop Dose Admin Acetaminophen 650 mg 01/08/25 12:54 Acetaminophen 325 Mg Tablet PO Q6H PRN PRN Pain 1-10 Or Fever >100.7 Hydrocodone Bitart/Acetaminophen 1 tablet 01/08/25 12:54 01/08/25 14:09 Hydrocodone Bitartrate/Apap 5/325 Tablet PO 1 tablet Q6H PRN Administration Pain 5-10 Or Fever > 100.7 F Albuterol Sulfate 2.5 mg 01/08/25 13:25 Albuterol 2.5 Mg/3 Ml Vial.Neb. INHALATION Q6HWA.RT WILLIE Budesonide 0.5 mg 01/08/25 13:25 Budesonide Respules 0.5 Mg/2 Ml Ampul.Neb. INHALATION Q12H.RT WILLIE Estradiol 0.5 mg 01/09/25 10:00 Estradiol 0.5 Mg Tablet PO DAILY WILLIE Fluticasone Propionate 1 spray 01/08/25 22:00 Fluticasone 0.05% 1 [place] Nasal.Sry NASAL Q12 WILLIE Glycerin/Hypromellose/Polyethylene 2 drp 01/08/25 13:16 Glycerin/Hypromellose/Gyb091 15 Ml Bottle OPHTHALMIC Q4H PRN ITCHY EYES Sodium Chloride 1,000 mls @ 125 mls/hr 01/08/25 12:54 01/08/25 17:07 IV 01/09/25 04:53 125 mls/hr .Q8H WILLIE Infusion Pantoprazole Sodium 80 mg/ 100 mls @ 10 mls/hr 01/08/25 12:54 01/08/25 17:07 Sodium Chloride CONT INF 10 mls/hr Q10H WILLIE Infusion Lidocaine 1 patch 01/08/25 13:15 Lidocaine 5% Patch TOPICAL DAILY PRN pain Loperamide HCl 2 mg 01/08/25 12:54 Loperamide 2 Mg Capsule PO Q4H PRN DIARRHEA/LOOSE STOOLS Loratadine 10 mg 01/09/25 10:00 Loratadine 10 Mg Tablet PO DAILY [facility] Melatonin 3 mg 01/08/25 22:00 Melatonin 3 Mg Tablet PO QHS PRN INSOMNIA Montelukast Sodium 10 mg 01/09/25 10:00 Montelukast 10 Mg Tablet PO DAILY [facility] Multivitamins/Minerals 1 cap 01/09/25 10:00 Multivitamin (Healthy Eyes) Capsule PO DAILY [facility] Nitroglycerin 0.4 mg 01/08/25 12:54 Nitroglycerin (Inpatient Use) 0.4 Mg Tab.Subl SL Q5M PRN CARDIAC/CHEST PAIN Ondansetron HCl 4 mg 01/08/25 13:16 01/08/25 15:53 Ondansetron Odt 4 Mg Tablet PO 4 mg Q6H PRN Administration nausea and vomiting Ondansetron HCl 4 mg 01/08/25 12:54 Ondansetron 4 Mg/2 Ml Vial IV Q8H PRN PRN NAUSEA/VOMITING Pyridostigmine [place] 60 mg 01/08/25 14:00 01/08/25 14:08 Pyridostigmine [place] 60 Mg Tablet PO 60 mg Q8 WILLIE Administration Rizatriptan Benzoate 10 mg 01/08/25 12:54 Rizatriptan Benzoate 10 Mg Tablet PO DAILY PRN PRN MIGRAINE SYMPTOMS Sertraline HCl 100 mg 01/09/25 10:00 Sertraline 100 Mg Tablet PO DAILY [facility] Simethicone 120 mg 01/08/25 13:17 Simethicone 80 Mg Chewable Tablet PO Q8H PRN abdominal distention Sodium Chloride 10 - 40 ml 01/08/25 13:47 01/08/25 17:07 0.9% Saline Lock 10 Ml Syringe IV 10 ml UD PRN Administration SALINE FLUSH PFSH Medical History Anxiety Depression Chronic pain Osteoarthritis GERD (gastroesophageal reflux disease) Former smoker Pulmonary embolism Hypertension Migraines Anxiety and depression Hx of gastroesophageal reflux (GERD) Fibromyalgia Diabetes mellitus Myasthenia gravis Hx pulmonary embolism Home Medications ?Medication ?Instructions ?Recorded ?Last Taken ?Type montelukast 10 mg tablet 10 mg PO DAILY ALLERGIES 05/1101/04/25 History sertraline 100 mg tablet 100 mg PO DAILY DEPRESSION 1 07/05/18 01/07/25 History albuterol sulfate 90 mcg/actuation 2 puff inhalation Q 4H PRN 10/22/23 01/06/25 History aerosol inhaler shortness of breath or wheez ing budesonide-formoterol HFA 80 2 puff inhalation BID DYS PNEA 10/22/23 01/07/25 History mcg-4.5 mcg/actuation aerosol inhaler estradiol 0.5 mg tablet 0.5 mg PO DAILY POSTMENOPAUS AL 10/22/23 01/06/25 History pyridostigmine bromide 60 mg tablet 60 mg PO Q8H FOR M USCLE STRENGTH 10/22/23 01/08/25 History sumatriptan succinate 100 mg tablet 100 mg PO PRN MIGR BRIAN 10/22/23 Unknown History cholecalciferol (vitamin D3) 25 2,000 unit PO DAILY givens pplement 10/26/23 01/04/25 History mcg (1,000 unit) capsule (Vitamin D3) amlodipine 10 mg tablet 10 mg PO DAILY HTN #0 tabs 0 10/27/23 12/30/24 Rx acetaminophen 325 mg tablet 650 mg PO Q6H PRN pain Unknown History cromolyn 4 % eye drops 2 drp ophthalmic (eye) Q6H P RN 01/08/25 12/24/24 History VERNAL CONJUNCTIVITIS fluticasone propionate 50 1 spray intranasal Q12H NURIS RGY 01/08/25 01/07/25 History mcg/actuation nasal SYMPTOM spray,suspension hydrocodone-acetaminophen 5-325mg 1 tab PO Q6H PRN Carlos n 5-10 Or 01/08/25 01/07/25 History 5mg-325mg Fever > 100.7 F lidocaine 4 % topical patch 1 patch topical DAILY PRN pain 01/08/25 Unknown History (Aspercreme (lidocaine)) loperamide 2 mg capsule 2 mg PO Q4H PRN DIARRHEA 01/06/25 History loratadine 10 mg tablet 10 mg PO DAILY ALLERGIES 01/04/25 History (Allerclear) melatonin 3 mg tablet 3 mg PO PRN Insomnia 5 Unknown History naphazoline-glycerin 0.03 %-0.5 % 2 drp ophthalmic (ey e) Q4H PRN 01/08/25 Unknown History eye drops (Clear Eyes Cooling ITCHY EYES Comfort) naproxen sodium 220 mg capsule 220 mg PO BID PRN pain 01/08/25 01/07/25 History (Aleve) ondansetron HCl 4 mg tablet 4 mg PO Q6H PRN nausea and vomiting 01/08/25 01/07/25 History pantoprazole 40 mg tablet,delayed 40 mg PO DAILY GASTR ITIS 01/08/25 Unknown History release (Protonix) simethicone 125 mg tablet 125 mg PO Q8H PRN abdominal 01/08/25 12/25/24 History (Bicarsim Forte) distention vit A 300 mcg-C 200 mg-E 27 1 tab PO DAILY VERNAL 12/2201/06/25 History mg-lutein 2 mg and minerals tablet CONJUNCTIVITIS (I-[place]ernan) Allergy/AdvReac Type Severity Reaction Status Date / Time Beta-Blockers Allergy Severe Other Verified 10/22/23 12:02 (Beta-Adrenergic Bloc Horse/Equine Containing AdvReac NEEDS Verified 10/22/23 12:00 Products FOLLOW-UP Sugars, Metabolically Active AdvReac Unknown Verified 10/22/23 12:00 Family History Other Lupus (systemic lupus erythematosus) Scleroderma Surgical History Hx of thymectomy Social History Smoking Status: Former smoker Review of Systems (Anesthesia) ROS Narrative System reviewed and no additional complaints, except as documented. 01/08/251803 milton CAGLE> Date _ Johnny Akins Signature: Date CC: ~ Signed [facility]08-18-2025 Consult note [facility] Medical Records Department [address] [place] [address] Consultation - GI 01/08/25 1737 MR#: [id number] Acct: [id number] Name: SADE RUSH Rep #:[id number] : 1945 79 From: Brennen Friend DO PCP: Dr. Ishaan Bernabe MD Status:ADM IN Location: ICU CVICU20 3-1 HPI Consult Data Date of Consult: 01/08/25 HPI Narrative Reason for Consultation: GI bleed HPI Narrative: SADE RUSH, is a 79-year-old woman with myasthenia gravis who presents with acomplaint of black,tarry stools. Her Hb was down to 5.6. She has a history of myasthenia gravis and repeated GI bleedsin the past, requiring blood transfusion. She says she last had a colonoscopy and EGD in 2000 in [place], but has refused any since. Vitals in the ED were temp of 98.3F, CO of 100, BP of 120/80, RR of 18, and she was saturating at 94% on room air. CBC showed hemoglobin of 5.6 with a WBC of 11.6 and platelets of 350. INR is 1.1. Chemistry shows sodium of 142 potassiumof 4.2 and bicarb of 23.6. Creatinine was 0.61. CT abdomen and pelvis was ordered by the ED doctor. Patient refused. When I reviewed patient's I spoke to her extensively about this and informed her that if there was any active GI bleeding source that could be taken care of by interventional radiology, the CT a abdomen and pelvis would help detect this. Patient was initially with lactateand said she would not do it because she felt it was just adding to her medical course. I explained to her that she did have insurance so this could cover it. However she wanted to know exactly how much it would cost. I explained to her that I did not have the information about exactly how much the CT would cause but I felt it was medically necessary under the circumstances. Patient then reluctantly agreed and I did speak to the ED doctor about ordering this. However patient subsequently declined this. She has been admitted to the ICU guido managed for acute on chronicanemia due to GI bleed. She was transfused with1 unit of packed red blood cells in the ED. [facility]LY [facility] Medical History Anxiety Depression Chronic pain Osteoarthritis GERD (gastroesophageal reflux disease) Former smoker Pulmonary embolism Hypertension Migraines Anxiety and depression Hx of gastroesophageal reflux (GERD) Fibromyalgia Diabetes mellitus Myasthenia gravis Hx pulmonary embolism Home Medications ?Medication ?Instructions ?Recorded ?Last Taken ?Type montelukast 10 mg tablet 10 mg PO DAILY ALLERGIES 05/1101/04/25 History sertraline 100 mg tablet 100 mg PO DAILY DEPRESSION 1 07/05/18 01/07/25 History albuterol sulfate 90 mcg/actuation 2 puff inhalation Q 4H PRN 10/22/23 01/06/25 History aerosol inhaler shortness of breath or wheez ing budesonide-formoterol HFA 80 2 puff inhalation BID DYS PNEA 10/22/23 01/07/25 History mcg-4.5 mcg/actuation aerosol inhaler estradiol 0.5 mg tablet 0.5 mg PO DAILY POSTMENOPAUS AL 10/22/23 01/06/25 History pyridostigmine bromide 60 mg tablet 60 mg PO Q8H FOR M USCLE STRENGTH 10/22/23 01/07/25 History sumatriptan succinate 100 mg tablet 100 mg PO PRN MIGR BRIAN 10/22/23 Unknown History cholecalciferol (vitamin D3) 25 2,000 unit PO DAILY givens pplement 10/26/23 01/04/25 History mcg (1,000 unit) capsule (Vitamin D3) amlodipine 10 mg tablet 10 mg PO DAILY HTN #0 tabs 0 10/27/23 12/30/24 Rx acetaminophen 325 mg tablet 650 mg PO Q6H PRN pain Unknown History cromolyn 4 % eye drops 2 drp ophthalmic (eye) Q6H P RN 01/08/25 12/24/24 History VERNAL CONJUNCTIVITIS fluticasone propionate 50 1 spray intranasal Q12H NURIS RGY 01/08/25 01/07/25 History mcg/actuation nasal SYMPTOM spray,suspension hydrocodone-acetaminophen 5-325mg 1 tab PO Q6H PRN Carlos n 5-10 Or 01/08/25 01/07/25 History 5mg-325mg Fever > 100.7 F lidocaine 4 % topical patch 1 patch topical DAILY PRN pain 01/08/25 Unknown History (Aspercreme (lidocaine)) loperamide 2 mg capsule 2 mg PO Q4H PRN DIARRHEA 01/06/25 History loratadine 10 mg tablet 10 mg PO DAILY ALLERGIES 01/04/25 History (Allerclear) melatonin 3 mg tablet 3 mg PO PRN Insomnia 5 Unknown History naphazoline-glycerin 0.03 %-0.5 % 2 drp ophthalmic (ey e) Q4H PRN 01/08/25 Unknown History eye drops (Clear Eyes Cooling ITCHY EYES Comfort) naproxen sodium 220 mg capsule 220 mg PO BID PRN pain 01/08/25 01/07/25 History (Aleve) ondansetron HCl 4 mg tablet 4 mg PO Q6H PRN nausea and vomiting 01/08/25 01/07/25 History pantoprazole 40 mg tablet,delayed 40 mg PO DAILY GASTR ITIS 01/08/25 Unknown History release (Protonix) simethicone 125 mg tablet 125 mg PO Q8H PRN abdominal 01/08/25 12/25/24 History (Bicarsim Forte) distention vit A 300 mcg-C 200 mg-E 27 1 tab PO DAILY VERNAL 12/2201/06/25 History mg-lutein 2 mg and minerals tablet CONJUNCTIVITIS (I-Hernan) Allergy/AdvReac Type Severity Reaction Status Date / Time Beta-Blockers Allergy Severe Other Verified 10/22/23 12:02 (Beta-Adrenergic Bloc Horse/Equine Containing AdvReac NEEDS Verified 10/22/23 12:00 Products FOLLOW-UP Sugars, Metabolically Active AdvReac Unknown Verified 10/22/23 12:00 Family History Other Lupus (systemic lupus erythematosus) Scleroderma Surgical History Hx of thymectomy Social History Smoking Status: Former smoker ROS Constitutional Constitutional: Denies fatigue, fever(s), poor appetite, weight gain or weight loss Gastrointestinal Gastrointestinal: Denies belching, bloating, change in bowel habits, change in stool character, chewing difficulty, coffee ground emesis, constipation, cramping, diarrhea, dyspepsia, dysphagia, earlysatiety, excessive flatus, fecalincontinence, heartburn, hematemesis, hematochezia, hemorrhoids, loose stools, melena, nausea, odynophagia, rectal bleeding, tenesmus, vomiting or weight changes Physical Exam Const alert, oriented x3 and no apparent distress Constitutional Narrative: visibly pale, animated. HEENT normocephalic, head/scalp atraumatic, hearing grossly normal bilaterally and moist oral mucous membranes Mouth: oral and palatal mucosa normal Eyes EOMs intact bilaterally and conjunctivae normal Neck supple and no JVD Resp normal respiratory effort, no use of accessory muscles and clear to auscultationbilaterally Cardio regular rate, regular rhythm, S1 normal heart sound, S2 normal heart sound and no murmurs GI normal to inspection, nondistended, normoactive bowel sounds, soft to palpation,non-tender and non-distended Extremity normal to inspection Neuro oriented x3 and CN's II-XII intact bilaterally Neuro Narrative: has chronic bilateral LE weakness due to myasthenia gravis Sensorium / Orientation: awake and alert Psych affect normal Lab / Micro Data 01/08/25 09:39 01/08/25 09:39 Labs: Laboratory Results - last 24 hr 01/08/25 09:39: WBC 11.6 H, RBC 1.77 L, Hgb 5.6 L*, Hct 17.4 L, MCV 98.3, MCH 31.6, MCHC 32.2, RDW Std Deviation 42.6, RDW Coeff of Meir 12.3, Plt Count 350, MPV 11.0, Immature Gran % (Auto) 0.500, Neut % (Auto) 72.0 H, Lymph % (Auto) 20.1, Jerauld % (Auto) 6.3, Eos % (Auto) 0.8, Baso % (Auto) 0.3, Absolute Neuts (auto) 8.3 H, Absolute Lymphs (auto) 2.33, Nucleated RBC % 0, PT 14.4, INR 1.1, APTT 24.3, Sodium 140, Potassium 4.2, Chloride 107, Carbon Dioxide 23.6, Anion Gap 9, BUN 32 H, Creatinine 0.61 L, Estim Creat Clear Calc 55.63, Est GFR (MDRD)Non-Af 92, BUN/Creatinine Ratio 52.6 H, Glucose 121 H, Calcium 9.0, Total Bilirubin 0.23, AST 20, ALT 21, Alkaline Phosphatase 63, Total Protein 5.4 L, Albumin 3.4, Globulin 2.1 L, Albumin/Globulin Ratio 1.6, Lipase 28, Blood Type OPOSITIVE, Antibody Screen NEGATIVE, Crossmatch See Detail 01/08/25 09:39: Crossmatch See Detail Micro: Microbiology 01/08/25 10:42 Stool Stool Occult Blood (RUTH ANN) - Final Occult Blood Positive Assessment & Plan Assessment/Plan (1) Acute anemia: (2) GI bleed: PLAN: Plan 79-year-old with history of myasthenia gravis with fatigue, weakness and melanotic stools acute on chronic anemia due to GI bleed. She will undergo an upper endoscopy. She was explained alternatives,risk and benefits including with any bleeding, infection, sepsis, perforation, need for surgery . She will have an ASA of 3. Charges/Coding Visit Charges Inpatient E&M: 22997 Init Hosp 01/08/25 9290 Cosigner Signature (if applicable): CC: Dr. Ishaan Bernabe MD~ Signed [facility]08-18-2025 Discharge summary Author Xaun Mcdaniels [facility] Note Date/Time January 08, 2025 3: 22pm [facility] Medical Records Department [address] [place] [address] Emergency Department Summary 01/08/25 MR#: [id number] Acct: [id number] Name: SADE RUSH Rep #:[id number] : 1945 79 From: Xaun Mcdaniels MD PCP: Dr. Ishaan Bernabe MD Status:ADM IN Location: ICU CVICU20 3-1 HPI History of Present Illness Chief Complaint: Abn Labs Narrative Narrative: Patient is a 79-year-old female presenting to the emergency department for nausea, vomiting and black tarry stool with a low hemoglobin noted by doctor at her nursing facility. Patient has a past medical history of myasthenia gravis and does not ambulate secondary to this. States that she has had GI bleeds in the past and required blood transfusions. States that since she has had nausea and episodes of nonbloody vomiting. Reports that she has also had diarrhea that the techs reported were black tarry. She denies fever, chills, chest pain, shortness of breath, abdominal pain. Denies any dysuria or hematuria. Denies any hematemesis. [facility], [facility] Medical History Anxiety Depression Chronic pain Osteoarthritis GERD (gastroesophageal reflux disease) Former smoker Pulmonary embolism Hypertension Migraines Anxiety and depression Hx of gastroesophageal reflux (GERD) Fibromyalgia Diabetes mellitus Myasthenia gravis Hx pulmonary embolism Home Medications ?Medication ?Instructions ?Recorded ?Last Taken ?Type montelukast 10 mg tablet 10 mg PO DAILY ALLERGIES 05/1101/04/25 History sertraline 100 mg tablet 100 mg PO DAILY DEPRESSION 1 07/05/18 01/07/25 History albuterol sulfate 90 mcg/actuation 2 puff inhalation Q 4H PRN 10/22/23 01/06/25 History aerosol inhaler shortness of breath or wheez ing budesonide-formoterol HFA 80 2 puff inhalation BID DYS PNEA 10/22/23 01/07/25 History mcg-4.5 mcg/actuation aerosol inhaler estradiol 0.5 mg tablet 0.5 mg PO DAILY POSTMENOPAUS AL 10/22/23 01/06/25 History pyridostigmine bromide 60 mg tablet 60 mg PO Q8H FOR M USCLE STRENGTH 10/22/23 01/07/25 History sumatriptan succinate 100 mg tablet 100 mg PO PRN MIGR BRIAN 10/22/23 Unknown History cholecalciferol (vitamin D3) 25 2,000 unit PO DAILY givens pplement 10/26/23 01/04/25 History mcg (1,000 unit) capsule (Vitamin D3) amlodipine 10 mg tablet 10 mg PO DAILY HTN #0 tabs 0 10/27/23 12/30/24 Rx acetaminophen 325 mg tablet 650 mg PO Q6H PRN pain Unknown History cromolyn 4 % eye drops 2 drp ophthalmic (eye) Q6H P RN 01/08/25 12/24/24 History VERNAL CONJUNCTIVITIS fluticasone propionate 50 1 spray intranasal Q12H NURIS RGY 01/08/25 01/07/25 History mcg/actuation nasal SYMPTOM spray,suspension hydrocodone-acetaminophen 5-325mg 1 tab PO Q6H PRN Carlos n 5-10 Or 01/08/25 01/07/25 History 5mg-325mg Fever > 100.7 F lidocaine 4 % topical patch 1 patch topical DAILY PRN pain 01/08/25 Unknown History (Aspercreme (lidocaine)) loperamide 2 mg capsule 2 mg PO Q4H PRN DIARRHEA 01/06/25 History loratadine 10 mg tablet 10 mg PO DAILY ALLERGIES 01/04/25 History (Allerclear) melatonin 3 mg tablet 3 mg PO PRN Insomnia 5 Unknown History naphazoline-glycerin 0.03 %-0.5 % 2 drp ophthalmic (ey e) Q4H PRN 01/08/25 Unknown History eye drops (Clear Eyes Cooling ITCHY EYES Comfort) naproxen sodium 220 mg capsule 220 mg PO BID PRN pain 01/08/25 01/07/25 History (Aleve) ondansetron HCl 4 mg tablet 4 mg PO Q6H PRN nausea and vomiting 01/08/25 01/07/25 History pantoprazole 40 mg tablet,delayed 40 mg PO DAILY GASTR ITIS 01/08/25 Unknown History release (Protonix) simethicone 125 mg tablet 125 mg PO Q8H PRN abdominal 01/08/25 12/25/24 History (Bicarsim Forte) distention vit A 300 mcg-C 200 mg-E 27 1 tab PO DAILY VERNAL 12/2201/06/25 History mg-lutein 2 mg and minerals tablet CONJUNCTIVITIS (I-Hernan) Allergy/AdvReac Type Severity Reaction Status Date / Time Beta-Blockers Allergy Severe Other Verified 10/22/23 12:02 (Beta-Adrenergic Bloc Horse/Equine Containing AdvReac NEEDS Verified 10/22/23 12:00 Products FOLLOW-UP Sugars, Metabolically Active AdvReac Unknown Verified 10/22/23 12:00 Family History Other Lupus (systemic lupus erythematosus) Scleroderma Surgical History Hx of thymectomy Social History Smoking Status: Former smoker ROS ROS ED ROS Narrative see HPI EXAM Physical Exam Narrative Exam Narrative: Vital signs: Reviewed General: Alert and orientedx3. No acute distress. Chronically ill appearing. Pale. HEENT: Head is normocephalic and atraumatic, sinuses nontender, pupils equal round and reactive. Nares are patent. Oropharynx and throat exams normal. Neck: Supple without lymphadenopathy nontender Cardiovascular: Tachycardic and regular rhythm, no murmurs. No rubs or gallops. Normal S1 and S2 Respiratory: Clear to auscultation bilaterally. No wheezes, rales, rhonchi Abdominal: Soft and nontender. Normal bowel sounds. No guarding or rebound. Nonsurgical abdomen : Rectal exam done with manufacturing coordinator RN at bedside. Melanotic stool on rectal exam. No bright red blood. No hemorrhoids. Extremities: Chronic contractures in bilateral lower extremities. No tenderness. No bruising. Skin: No rash or redness. The rest of the physical exam is unremarkable Const Vital Signs: 01/08/25 09:30 01/08/25 09:58 01/08/25 10:30 Temperature 97.6 F L Temperature Source Temporal Pulse Rate 108 H 102 H Respiratory Rate 18 18 Respiratory Pattern Normal Blood Pressure 155/62 H 124/61 H Blood Pressure Mean 93 82 Blood Pressure Source Blood Pressure Position Blood Pressure Location Pulse Ox 94 98 Oxygen Delivery Method Room Air 01/08/25 11:00 01/08/25 11:40 01/08/25 11:43 Temperature 98 F 98.3 F Temperature Source Oral Oral Pulse Rate 108 H 111 H 106 H Respiratory Rate 18 27 H 15 Respiratory Pattern Blood Pressure 116/78 97/58 L 99/58 L Blood Pressure Mean 90 71 71 Blood Pressure Source Monitor Blood Pressure Position Blood Pressure Location Pulse Ox 98 95 97 Oxygen Delivery Method Room Air Room Air 01/08/25 11:47 01/08/25 11:58 01/08/25 12:00 Temperature 98.3 F 98.3 F Temperature Source Oral Pulse Rate 106 H 100 100 Respiratory Rate 15 18 Respiratory Pattern Blood Pressure 99/58 L 120/80 122/70 H Blood Pressure Mean 71 93 87 Blood Pressure Source Monitor Blood Pressure Position Supine Blood Pressure Location Right Arm Pulse Ox 97 96 100 Oxygen Delivery Method Room Air MDM MDM MDM Narrative Medical decision making narrative: Patient is a 79-year-old female presenting to the emergency department for nausea, vomiting and black tarry stool with a low hemoglobin outpatient by her doctor. Patient was seen and examined. Vitals are stable. Mildly tachycardic. Differential includes but is not limited to: Upper GI bleed from peptic ulcer, lower GI bleed, hemorrhoids, anal fissure, AVM, diverticulitis, colitis Patient typed and screened for blood given the outpatient hemoglobin of 5.5. PTand PTT ordered. Labs and CT imaging ordered given her nausea and vomiting since . CBC with mild leukocytosis of 11.6. Anemia of 5.6. Slight elevation of BUN of 32. Informed consent obtained for 1 unit PRBC. I did recommend that the patient had a CT scan done given she has had nausea and vomiting. She refused. Fecal occult was positive. Patient admitted to the hospitalist for further management. I did speak to CATHERINE, Dr. Foy, who agreed with need for EGD. Hospitalist spoke with the patient and recommended to CT again however the patient declined once again. She understands the risks and benefits of not having it done. Clinical impression: GI bleed anemia Lab Data Labs: Laboratory Results - last 24 hr 01/08/25 01/08/25 09:39 09:39 WBC 11.6 H RBC 1.77 L Hgb 5.6 L* Hct 17.4 L MCV 98.3 MCH 31.6 MCHC 32.2 RDW Std Deviation 42.6 RDW Coeff of Meir 12.3 Plt Count 350 MPV 11.0 Immature Gran % (Auto) 0.500 Neut % (Auto) 72.0 H Lymph % (Auto) 20.1 Jerauld % (Auto) 6.3 Eos % (Auto) 0.8 Baso % (Auto) 0.3 Absolute Neuts (auto) 8.3 H Absolute Lymphs (auto) 2.33 Nucleated RBC % 0 PT 14.4 INR 1.1 APTT 24.3 Sodium 140 Potassium 4.2 Chloride 107 Carbon Dioxide 23.6 Anion Gap 9 BUN 32 H Creatinine 0.61 L Estim Creat Clear Calc 55.63 Est GFR (MDRD) Non-Af 92 BUN/Creatinine Ratio 52.6 H Glucose 121 H Calcium 9.0 Total Bilirubin 0.23 AST 20 ALT 21 Alkaline Phosphatase 63 Total Protein 5.4 L Albumin 3.4 Globulin 2.1 L Albumin/Globulin Ratio 1.6 Lipase 28 Blood Type O POSITIVE Antibody Screen NEGATIVE Crossmatch See Detail See Detail Discharge Plan Disposition Disposition: Acute Care Hospital [facility] Discharge Date/Time: 01/08/25 13:35 What to do if you have Problems For any increased pain, shortness of breath, bleeding, nausea or vomiting, chestpain, or any unexpected problems, contact your Primary Care Provider. Call [facility] ([phone]) or report to the closest Emergency Room. Call 911 if necessary. 01/08/25 1522 <Electronically signed by Xuan Mcdaniels MD> Cosigner Signature (if applicable): CC: Dr. Ishaan Bernabe MD ~ Signed [facility] Work Phone: [phone] 800-391808-18-2025 Consult note [facility] Medical Records Department [address] [place] [address] Consultation - Take Down Sorter 01/08/25 1610 MR#: [id number] Acct: [id number] Name: SADE RUSH Rep #:[id number] : 1945 79 From: Marquise Montano MD PCP: Dr. Ishaan Bernabe MD Status:ADM IN Location: ICU CVICU20 3-1 HPI Consult Data Date of Consult: 01/08/25 HPI Narrative Reason for Consultation: Severe anemia, ?GIB, intractable N, melena, poor PO intake x1 week HPI Narrative: 79Y F PMH myasthenia gravis & prior GIB with EGD in 2000 who presented from [place] with 1 week Hx of poor PO intake, nausea & melena. She denies fevers/chills/chest pain/SOB, abdominal pain, fever or chills, any coffee- groundemesis or any bright red bleeding per rectum. In the ED she was noted to have aHgb of 5.6. She refused CT scan and is currently refusing EGD. She is concerned with costs,radiation exposure and the risk of getting meds that could worsen her MG. She is receiving PRBCs. Vitals stable. Continues to have severe nausea but did receive Zofran ~10 min ago. [facility] Medical History Anxiety Depression Chronic pain Osteoarthritis GERD (gastroesophageal reflux disease) Former smoker Pulmonary embolism Hypertension Migraines Anxiety and depression Hx of gastroesophageal reflux (GERD) Fibromyalgia Diabetes mellitus Myasthenia gravis Hx pulmonary embolism Home Medications ?Medication ?Instructions ?Recorded ?Last Taken ?Type montelukast 10 mg tablet 10 mg PO DAILY ALLERGIES 05/1101/04/25 History sertraline 100 mg tablet 100 mg PO DAILY DEPRESSION 1 07/05/18 01/07/25 History albuterol sulfate 90 mcg/actuation 2 puff inhalation Q 4H PRN 10/22/23 01/06/25 History aerosol inhaler shortness of breath or wheez ing budesonide-formoterol HFA 80 2 puff inhalation BID DYS PNEA 10/22/23 01/07/25 History mcg-4.5 mcg/actuation aerosol inhaler estradiol 0.5 mg tablet 0.5 mg PO DAILY POSTMENOPAUS AL 10/22/23 01/06/25 History pyridostigmine bromide 60 mg tablet 60 mg PO Q8H FOR M USCLE STRENGTH 10/22/23 01/07/25 History sumatriptan succinate 100 mg tablet 100 mg PO PRN MIGR BRIAN 10/22/23 Unknown History cholecalciferol (vitamin D3) 25 2,000 unit PO DAILY givens pplement 10/26/23 01/04/25 History mcg (1,000 unit) capsule (Vitamin D3) amlodipine 10 mg tablet 10 mg PO DAILY HTN #0 tabs 0 10/27/23 12/30/24 Rx acetaminophen 325 mg tablet 650 mg PO Q6H PRN pain Unknown History cromolyn 4 % eye drops 2 drp ophthalmic (eye) Q6H P RN 01/08/25 12/24/24 History VERNAL CONJUNCTIVITIS fluticasone propionate 50 1 spray intranasal Q12H NURIS RGY 01/08/25 01/07/25 History mcg/actuation nasal SYMPTOM spray,suspension hydrocodone-acetaminophen 5-325mg 1 tab PO Q6H PRN Carlos n 5-10 Or 01/08/25 01/07/25 History 5mg-325mg Fever > 100.7 F lidocaine 4 % topical patch 1 patch topical DAILY PRN pain 01/08/25 Unknown History (Aspercreme (lidocaine)) loperamide 2 mg capsule 2 mg PO Q4H PRN DIARRHEA 01/06/25 History loratadine 10 mg tablet 10 mg PO DAILY ALLERGIES 01/04/25 History (Allerclear) melatonin 3 mg tablet 3 mg PO PRN Insomnia 5 Unknown History naphazoline-glycerin 0.03 %-0.5 % 2 drp ophthalmic (ey e) Q4H PRN 01/08/25 Unknown History eye drops (Clear Eyes Cooling ITCHY EYES Comfort) naproxen sodium 220 mg capsule 220 mg PO BID PRN pain 01/08/25 01/07/25 History (Aleve) ondansetron HCl 4 mg tablet 4 mg PO Q6H PRN nausea and vomiting 01/08/25 01/07/25 History pantoprazole 40 mg tablet,delayed 40 mg PO DAILY GASTR ITIS 01/08/25 Unknown History release (Protonix) simethicone 125 mg tablet 125 mg PO Q8H PRN abdominal 01/08/25 12/25/24 History (Bicarsim Forte) distention vit A 300 mcg-C 200 mg-E 27 1 tab PO DAILY VERNAL 12/2201/06/25 History mg-lutein 2 mg and minerals tablet CONJUNCTIVITIS (I-Hernan) Allergy/AdvReac Type Severity Reaction Status Date / Time Beta-Blockers Allergy Severe Other Verified 10/22/23 12:02 (Beta-Adrenergic Bloc Horse/Equine Containing AdvReac NEEDS Verified 10/22/23 12:00 Products FOLLOW-UP Sugars, Metabolically Active AdvReac Unknown Verified 10/22/23 12:00 Family History Other Lupus (systemic lupus erythematosus) Scleroderma Surgical History Hx of thymectomy Social History Smoking Status: Former smoker ROS ROS Narrative Full 12 point ROS completed and neg unless stated in HPI above. Objective Data Objective Data Vital Signs: Vital Signs Last response 3 Temperature 36.8 C 01/08/25 15:49 Temperature Source Oral 01/08/25 15:49 Pulse Rate 88 01/08/25 16:00 Respiratory Rate 16 01/08/25 16:00 Respiratory Pattern Normal 01/08/25 09:58 Blood Pressure 115/48 L 01/08/25 16:00 Blood Pressure Mean 70 01/08/25 16:00 Blood Pressure Source Monitor 01/08/25 16:00 Blood Pressure Position Supine 01/08/25 16:00 Blood Pressure Location Left Arm 01/08/25 16:00 Pulse Ox 98 01/08/25 16:00 Oxygen Delivery Method Room Air 01/08/25 16:00 I&O: I&O Last 24 Hours 3 01/07/25 01/08/25 01/08/25 23:59 11:59 23:59 Intake Total 0 / 400 400 / 400 Balance 0 / 400 400 / 400 I&O: Total Stay 3 01/08/25 09:29 thru 01/08/25 15:49 Intake Total 400 Balance 400 Current Meds Ordered / Administered: Current meds ordered / Administered 3 Generic Name Dose Route Start Last Admin Trade Name Freq PRN Reason Stop Dose Admin Acetaminophen 650 mg 01/08/25 12:54 Acetaminophen 325 Mg Tablet PO Q6H PRN PRN Pain 1-10 Or Fever >100.7 Hydrocodone Bitart/Acetaminophen 1 tablet 01/08/25 12:54 01/08/25 14:09 Hydrocodone Bitartrate/Apap 5/325 Tablet PO 1 tablet Q6H PRN Administration Pain 5-10 Or Fever > 100.7 F Albuterol Sulfate 2.5 mg 01/08/25 13:25 Albuterol 2.5 Mg/3 Ml Vial.Neb. INHALATION Q6HWA.RT WILLIE Budesonide 0.5 mg 01/08/25 13:25 Budesonide Respules 0.5 Mg/2 Ml Ampul.Neb. INHALATION Q12H.RT WILLIE Estradiol 0.5 mg 01/09/25 10:00 Estradiol 0.5 Mg Tablet PO DAILY WILLIE Fluticasone Propionate 1 spray 01/08/25 22:00 Fluticasone 0.05% 1 [place] Nasal.Sry NASAL Q12 [facility] Glycerin/Hypromellose/Polyethylene 2 drp 01/08/25 13:16 Glycerin/Hypromellose/[id number] 15 Ml Bottle OPHTHALMIC Q4H PRN ITCHY EYES Sodium Chloride 1,000 mls @ 125 mls/hr 01/08/25 12:54 01/08/25 14:08 IV 01/09/25 04:53 125 mls/hr .Q8H WILLIE Administration Pantoprazole Sodium 80 mg/ 100 mls @ 10 mls/hr 01/08/25 12:54 01/08/25 14:08 Sodium Chloride CONT INF 10 mls/hr Q10H [facility] Administration Lidocaine 1 patch 01/08/25 13:15 Lidocaine 5% Patch TOPICAL DAILY PRN pain Loperamide HCl 2 mg 01/08/25 12:54 Loperamide 2 Mg Capsule PO Q4H PRN DIARRHEA/LOOSE STOOLS Loratadine 10 mg 01/09/25 10:00 Loratadine 10 Mg Tablet PO DAILY [facility] Melatonin 3 mg 01/08/25 22:00 Melatonin 3 Mg Tablet PO QHS PRN INSOMNIA Montelukast Sodium 10 mg 01/09/25 10:00 Montelukast 10 Mg Tablet PO DAILY [facility] Multivitamins/Minerals 1 cap 01/09/25 10:00 Multivitamin (Healthy Eyes) Capsule PO DAILY [facility] Nitroglycerin 0.4 mg 01/08/25 12:54 Nitroglycerin (Inpatient Use) 0.4 Mg Tab.Subl SL Q5M PRN CARDIAC/CHEST PAIN Ondansetron HCl 4 mg 01/08/25 13:16 01/08/25 15:53 Ondansetron Odt 4 Mg Tablet PO 4 mg Q6H PRN Administration nausea and vomiting Ondansetron HCl 4 mg 01/08/25 12:54 Ondansetron 4 Mg/2 Ml Vial IV Q8H PRN PRN NAUSEA/VOMITING Pyridostigmine [place] 60 mg 01/08/25 14:00 01/08/25 14:08 Pyridostigmine [place] 60 Mg Tablet PO 60 mg Q8 [facility] Administration Rizatriptan Benzoate 10 mg 01/08/25 12:54 Rizatriptan Benzoate 10 Mg Tablet PO DAILY PRN PRN MIGRAINE SYMPTOMS Sertraline HCl 100 mg 01/09/25 10:00 Sertraline 100 Mg Tablet PO DAILY WILLIE Simethicone 120 mg 01/08/25 13:17 Simethicone 80 Mg Chewable Tablet PO Q8H PRN abdominal distention Sodium Chloride 10 - 40 ml 01/08/25 13:47 0.9% Saline Lock 10 Ml Syringe IV UD PRN SALINE FLUSH Lab / Micro Data 01/08/25 09:39 01/08/25 09:39 Labs: Laboratory Results - last 24 hr 01/08/25 09:39: WBC 11.6 H, RBC 1.77 L, Hgb 5.6 L*, Hct 17.4 L, MCV 98.3, MCH 31.6, MCHC 32.2, RDW Std Deviation 42.6, RDW Coeff of Meir 12.3, Plt Count 350, MPV 11.0, Immature Gran % (Auto) 0.500, Neut % (Auto) 72.0 H, Lymph % (Auto) 20.1, Jerauld % (Auto) 6.3, Eos % (Auto) 0.8, Baso % (Auto) 0.3, Absolute Neuts (auto) 8.3 H, Absolute Lymphs (auto) 2.33, Nucleated RBC % 0, PT 14.4, INR 1.1, APTT 24.3, Sodium 140, Potassium 4.2, Chloride 107, Carbon Dioxide 23.6, Anion Gap 9, BUN 32 H, Creatinine 0.61 L, Estim Creat Clear Calc 55.63, Est GFR (MDRD)Non-Af 92, BUN/Creatinine Ratio 52.6 H, Glucose 121 H, Calcium 9.0, Total Bilirubin 0.23, AST 20, ALT 21, Alkaline Phosphatase 63, Total Protein 5.4 L, Albumin 3.4, Globulin 2.1 L, Albumin/Globulin Ratio 1.6, Lipase 28, Blood Type OPOSITIVE, Antibody Screen NEGATIVE, Crossmatch See Detail 01/08/25 09:39: Crossmatch See Detail Micro: Microbiology 01/08/25 10:42 Stool Stool Occult Blood (RUTH ANN) - Final Occult Blood Positive Assessment and Plan . Assessment and plan: PE: General: acute on chronically ill appearing elderly frail female in no distress HEENT: anicteric Sclera, nl nose; supple neck, no masses Cardiovascular: RRR; +S1/S2; No rubs, gallops; no displaced PM Respiratory: clear; no crackles, wheezes, or rhonchi Abdominal: Soft; Non-tender; Non distended; hypoBS x 4; No Hepatosplenomegaly Extremities: Warm, well perfused; No clubbing, cyanosis; capillary refill < 2 sec Skin: intact, no rashes Neurological: A&Ox3; no gross deficits appreciated A/P #Acute blood loss anemia: sp PRBC; F/U repeat Hgb #Suspected GIB: cont PPI IV BID; pending GI consult; counseled patient on the importance of EGD andshe currently states she would be willing to proceed aftertalking to anesthesia team about sedationplan #Intractable nausea: cont antiemetics; get CT A/P (pt OK with imaging at this time) #Myasthenia gravis: cont home meds #Chronic anemia with prior Hx of transfusions and remote Hx EGD NPO SCDs, PPI Guarded prognosis Critical Care Time: 60 min The entirety of this encounter was done via Telemedicine 01/08/25 1631 Cosigner Signature (if applicable): CC: Dr. Ishaan Bernabe MD~ Signed [facility]08-18-2025 History and physical note [facility] Medical Records Department [address] [place] [address] H&P Exam - Hospitalist 01/08/25 1151 MR#: [id number] Acct: [id number] Name: SADE RUSH Rep #:[id number] : 1945 79 From: Katy De La Rosa MD PCP: Dr. Ishaan Bernabe MD Status:ADM IN Location: ICU CVICU20 3-1 HPI - General General Date of Admission: 01/08/25 Date of Service: 01/08/25 Chief Complaint: abnormal labs HPI Narrative SADE RUSH, is a 79 F with a PMH as outlined who presents with a complaint ofblack, tarry stools. Her Hb was down to 5.6. She has a history of myasthenia gravis and repeated GI bleeds in the past,requiring blood transfusion. She saysshe last had a colonoscopy and EGD in 2000 in [place], but has refused any since. She denied any abdominal pain, fever or chills, any coffee-ground emesisor any bright red bleeding per rectum. She denies any weight loss. Review of systems otherwise negative. Vitals in the ED were temp of 98.3F, CO of 100, BP of 120/80, RR of 18, and she was saturating at 94% on room air. CBC showed hemoglobin of 5.6 with a WBC of 11.6 and platelets of 350. INR is 1.1. Chemistry shows sodium of 142 potassiumof 4.2 and bicarb of 23.6. Creatinine was 0.61. CT abdomen and pelvis was ordered by the ED doctor. Patient refused. When I reviewed patient's I spoke to her extensively about this and informed her that if there was any active GI bleeding source that could be taken care of by interventional radiology, the CT a abdomen and pelvis would help detect this. Patient was initially with lactateand said she would not do it because she felt it was just adding to her medical course. I explained to her that she did have insurance so this could cover it. However she wanted to know exactly how much it would cost. I explained to her that I did not have the information about exactly how much the CT would cause but I felt it was medically necessary under the circumstances. Patient then reluctantly agreed and I did speak to the ED doctor about ordering this. However patient subsequently declined this. She has been admitted to the ICU guido managed for acute on chronicanemia due to GI bleed. She was transfused with1 unit of packed red blood cells in the ED. [facility], [facility] Medical History Anxiety Depression Chronic pain Osteoarthritis GERD (gastroesophageal reflux disease) Former smoker Pulmonary embolism Hypertension Migraines Anxiety and depression Hx of gastroesophageal reflux (GERD) Fibromyalgia Diabetes mellitus Myasthenia gravis Hx pulmonary embolism Home Medications ?Medication ?Instructions ?Recorded ?Last Taken ?Type montelukast 10 mg tablet 10 mg PO DAILY ALLERGIES 05/1101/04/25 History sertraline 100 mg tablet 100 mg PO DAILY DEPRESSION 1 07/05/18 01/07/25 History albuterol sulfate 90 mcg/actuation 2 puff inhalation Q 4H PRN 10/22/23 01/06/25 History aerosol inhaler shortness of breath or wheez ing budesonide-formoterol HFA 80 2 puff inhalation BID DYS PNEA 10/22/23 01/07/25 History mcg-4.5 mcg/actuation aerosol inhaler estradiol 0.5 mg tablet 0.5 mg PO DAILY POSTMENOPAUS AL 10/22/23 01/06/25 History pyridostigmine bromide 60 mg tablet 60 mg PO Q8H FOR M USCLE STRENGTH 10/22/23 01/07/25 History sumatriptan succinate 100 mg tablet 100 mg PO PRN MIGR BRIAN 10/22/23 Unknown History cholecalciferol (vitamin D3) 25 2,000 unit PO DAILY givens pplement 10/26/23 01/04/25 History mcg (1,000 unit) capsule (Vitamin D3) amlodipine 10 mg tablet 10 mg PO DAILY HTN #0 tabs 0 10/27/23 12/30/24 Rx acetaminophen 325 mg tablet 650 mg PO Q6H PRN pain Unknown History cromolyn 4 % eye drops 2 drp ophthalmic (eye) Q6H P RN 01/08/25 12/24/24 History VERNAL CONJUNCTIVITIS fluticasone propionate 50 1 spray intranasal Q12H NURIS RGY 01/08/25 01/07/25 History mcg/actuation nasal SYMPTOM spray,suspension hydrocodone-acetaminophen 5-325mg 1 tab PO Q6H PRN Carlos n 5-10 Or 01/08/25 01/07/25 History 5mg-325mg Fever > 100.7 F lidocaine 4 % topical patch 1 patch topical DAILY PRN pain 01/08/25 Unknown History (Aspercreme (lidocaine)) loperamide 2 mg capsule 2 mg PO Q4H PRN DIARRHEA 01/06/25 History loratadine 10 mg tablet 10 mg PO DAILY ALLERGIES 01/04/25 History (Allerclear) melatonin 3 mg tablet 3 mg PO PRN Insomnia 5 Unknown History naphazoline-glycerin 0.03 %-0.5 % 2 drp ophthalmic (ey e) Q4H PRN 01/08/25 Unknown History eye drops (Clear Eyes Cooling ITCHY EYES Comfort) naproxen sodium 220 mg capsule 220 mg PO BID PRN pain 01/08/25 01/07/25 History (Aleve) ondansetron HCl 4 mg tablet 4 mg PO Q6H PRN nausea and vomiting 01/08/25 01/07/25 History pantoprazole 40 mg tablet,delayed 40 mg PO DAILY GASTR ITIS 01/08/25 Unknown History release (Protonix) simethicone 125 mg tablet 125 mg PO Q8H PRN abdominal 01/08/25 12/25/24 History (Bicarsim Forte) distention vit A 300 mcg-C 200 mg-E 27 1 tab PO DAILY VERNAL 12/2201/06/25 History mg-lutein 2 mg and minerals tablet CONJUNCTIVITIS (I-Hernan) Allergy/AdvReac Type Severity Reaction Status Date / Time Beta-Blockers Allergy Severe Other Verified 10/22/23 12:02 (Beta-Adrenergic Bloc Horse/Equine Containing AdvReac NEEDS Verified 10/22/23 12:00 Products FOLLOW-UP Sugars, Metabolically Active AdvReac Unknown Verified 10/22/23 12:00 Family History Other Lupus (systemic lupus erythematosus) Scleroderma Surgical History Hx of thymectomy Social History Smoking Status: Former smoker ROS Constitutional Constitutional: Reports fatigue, malaise and weakness; Denies anorexia, chills or fever(s) Eyes Eyes: Denies change in vision ENT HEENT: Denies dysphagia or headache(s) Cardiovascular Cardiovascular: Denies chest pain, dyspnea on exertion, edema, lightheadedness, orthopnea, palpitations, rapid heart rate or syncope Respiratory/Chest Respiratory/Chest: Denies cough, dyspnea or productive cough Gastrointestinal Gastrointestinal: Reports melena; Denies abdominal pain, coffee ground emesis, diarrhea, dyspepsia,hematemesis, hematochezia, nausea or vomiting Genitourinary Genitourinary: Denies burning urination or hematuria Neurologic Neurologic: Denies dizziness, focal weakness, headache(s), numbness, seizures orsyncope Hematologic/Lymphatic Hematologic/Lymphatic: Reports anemia Vital Signs Vital Signs Vital Signs: 01/08/25 09:30 01/08/25 09:58 01/08/25 10:30 Temperature 97.6 F L Temperature Source Temporal Pulse Rate 108 H 102 H Respiratory Rate 18 18 Respiratory Pattern Normal Blood Pressure 155/62 H 124/61 H Blood Pressure Mean 93 82 Blood Pressure Source Pulse Ox 94 98 Oxygen Delivery Method Room Air 01/08/25 11:00 01/08/25 11:40 01/08/25 11:43 Temperature 98 F 98.3 F Temperature Source Oral Oral Pulse Rate 108 H 111 H 106 H Respiratory Rate 18 27 H 15 Respiratory Pattern Blood Pressure 116/78 97/58 L 99/58 L Blood Pressure Mean 90 71 71 Blood Pressure Source Monitor Pulse Ox 98 95 97 Oxygen Delivery Method Room Air Room Air 01/08/25 11:47 Temperature 98.3 F Temperature Source Pulse Rate 106 H Respiratory Rate 15 Respiratory Pattern Blood Pressure 99/58 L Blood Pressure Mean 71 Blood Pressure Source Pulse Ox 97 Oxygen Delivery Method Weight Weight: 156 lb 8.451 oz Body Mass Index (BMI) 27.7 Physical Exam Const alert, oriented x3 and no apparent distress Constitutional Narrative: visibly pale, animated. HEENT normocephalic, head/scalp atraumatic, hearing grossly normal bilaterally and moist oral mucous membranes Mouth: oral and palatal mucosa normal Eyes EOMs intact bilaterally and conjunctivae normal Neck supple and no JVD Resp normal respiratory effort, no use of accessory muscles and clear to auscultationbilaterally Cardio regular rate, regular rhythm, S1 normal heart sound, S2 normal heart sound and no murmurs GI normal to inspection, nondistended, normoactive bowel sounds, soft to palpation,non-tender and non-distended Extremity normal to inspection Neuro oriented x3 and CN's II-XII intact bilaterally Neuro Narrative: has chronic bilateral LE weakness due to myasthenia gravis Sensorium / Orientation: awake and alert Psych affect normal Results Lab / Micro Data 01/08/25 09:39 01/08/25 09:39 Labs: Laboratory Results - last 24 hr 01/08/25 09:39: WBC 11.6 H, RBC 1.77 L, Hgb 5.6 L*, Hct 17.4 L, MCV 98.3, MCH 31.6, MCHC 32.2, RDW Std Deviation 42.6, RDW Coeff of Meir 12.3, Plt Count 350, MPV 11.0, Immature Gran % (Auto) 0.500, Neut % (Auto) 72.0 H, Lymph % (Auto) 20.1, Jerauld % (Auto) 6.3, Eos % (Auto) 0.8, Baso % (Auto) 0.3, Absolute Neuts (auto) 8.3 H, Absolute Lymphs (auto) 2.33, Nucleated RBC % 0, PT 14.4, INR 1.1, APTT 24.3, Sodium 140, Potassium 4.2, Chloride 107, Carbon Dioxide 23.6, Anion Gap 9, BUN 32 H, Creatinine 0.61 L, Estim Creat Clear Calc 55.63, Est GFR (MDRD)Non-Af 92, BUN/Creatinine Ratio 52.6 H, Glucose 121 H, Calcium 9.0, Total Bilirubin 0.23, AST 20, ALT 21, Alkaline Phosphatase 63, Total Protein 5.4 L, Albumin 3.4, Globulin 2.1 L, Albumin/Globulin Ratio 1.6, Lipase 28, Blood Type OPOSITIVE, Antibody Screen NEGATIVE, Crossmatch See Detail Micro: Microbiology 01/08/25 10:42 Stool Stool Occult Blood (RUTH ANN) - Final Occult Blood Positive Assessment & Plan Assessment/Plan (1) Acute anemia: (2) GI bleed: PLAN: Plan #Acute on chronic anemia due to GI bleed * admitted with a complaint of anemia, per labs done in her SNF. She admitted to melena stools but denied any hematochezia, hematemesis or coffee ground emesis * Hb was 5.6 on admission * stool for occult blood positive. Check iron profile * Transfusion return as appropriate blood cells. GI consulted. Placed on IV pantoprazole drip. * Keep n.p.o. and hydrate with IV fluids. Patient says she has had anemia in the past requiring blood transfusions and had to have EGD and colonoscopy back in 2000 in [place]. She does not remember what it showed. * CT abdomen and pelvis with contrast ordered by ED doctor. Patient refused this. When I spoke to patient about it she was concerned about the cost. I informed her that I felt it was medically necessary and she also had insurance. Patient then agreed to do it but subsequently changed her mind again. * Gastroenterology consulted. Await recs. Critical care also consulted as patient is in the ICU. * Hold any NSAIDs. * #Hypertension: On amlodipine 10 mg daily. #History of myasthenia gravis currently on prior to statement #History of depression: On sertraline #History of chronic pain syndrome: On [place] at home. #History of chronic migraines without aura: On sumatriptan #DVT prophylaxis: SCDs. no anticoagulation due to anemia. COde status: full code * Patient counseled extensively about different types of CODE STATUS including full code, DNR CCA and DNR CCA. Patient elects to be full code. * Total myka-ks-mbty time 16 minutes. Charges/Coding Visit Charges Inpatient E&M: 27616 Init Hosp L3 Procedures Hospitalists Procedures: 70528 Advncd Care Plan 30 Min 01/08/25 1628 Cosigner Signature (if applicable): CC: Dr. Ishaan Bernabe MD; Dr. Katy De La Rosa MD~ Signed [facility]08-18-2025 Discharge summary [facility] Medical Records Department [address] [place] [address] Emergency Department Summary 01/08/25 MR#: [id number] Acct: [id number] Name: SADE RUSH Rep #:[id number] : 1945 79 From: Xuan Mcdaniels MD PCP: Dr. Ishaan Bernabe MD Status:ADM IN Location: ICU CVICU20 3-1 HPI History of Present Illness Chief Complaint: Abn Labs Narrative Narrative: Patient is a 79-year-old female presenting to the emergency department for nausea, vomiting and black tarry stool with a low hemoglobin noted by doctor at her nursing facility. Patient has a past medical history of myasthenia gravis and does not ambulate secondary to this. States that she has had GI bleeds in the past and required blood transfusions. States that since she has had nausea and episodes of nonbloody vomiting. Reports that she has also had diarrhea that the techs reported were black tarry. She denies fever, chills, chest pain, shortness of breath, abdominal pain. Denies any dysuria or hematuria. Denies any hematemesis. [facility] Medical History Anxiety Depression Chronic pain Osteoarthritis GERD (gastroesophageal reflux disease) Former smoker Pulmonary embolism Hypertension Migraines Anxiety and depression Hx of gastroesophageal reflux (GERD) Fibromyalgia Diabetes mellitus Myasthenia gravis Hx pulmonary embolism Home Medications ?Medication ?Instructions ?Recorded ?Last Taken ?Type montelukast 10 mg tablet 10 mg PO DAILY ALLERGIES 05/1101/04/25 History sertraline 100 mg tablet 100 mg PO DAILY DEPRESSION 1 07/05/18 01/07/25 History albuterol sulfate 90 mcg/actuation 2 puff inhalation Q 4H PRN 10/22/23 01/06/25 History aerosol inhaler shortness of breath or wheez ing budesonide-formoterol HFA 80 2 puff inhalation BID DYS PNEA 10/22/23 01/07/25 History mcg-4.5 mcg/actuation aerosol inhaler estradiol 0.5 mg tablet 0.5 mg PO DAILY POSTMENOPAUS AL 10/22/23 01/06/25 History pyridostigmine bromide 60 mg tablet 60 mg PO Q8H FOR M USCLE STRENGTH 10/22/23 01/07/25 History sumatriptan succinate 100 mg tablet 100 mg PO PRN MIGR BRIAN 10/22/23 Unknown History cholecalciferol (vitamin D3) 25 2,000 unit PO DAILY givens pplement 10/26/23 01/04/25 History mcg (1,000 unit) capsule (Vitamin D3) amlodipine 10 mg tablet 10 mg PO DAILY HTN #0 tabs 0 10/27/23 12/30/24 Rx acetaminophen 325 mg tablet 650 mg PO Q6H PRN pain Unknown History cromolyn 4 % eye drops 2 drp ophthalmic (eye) Q6H P RN 01/08/25 12/24/24 History VERNAL CONJUNCTIVITIS fluticasone propionate 50 1 spray intranasal Q12H NURIS RGY 01/08/25 01/07/25 History mcg/actuation nasal SYMPTOM spray,suspension hydrocodone-acetaminophen 5-325mg 1 tab PO Q6H PRN Carlos n 5-10 Or 01/08/25 01/07/25 History 5mg-325mg Fever > 100.7 F lidocaine 4 % topical patch 1 patch topical DAILY PRN pain 01/08/25 Unknown History (Aspercreme (lidocaine)) loperamide 2 mg capsule 2 mg PO Q4H PRN DIARRHEA 01/06/25 History loratadine 10 mg tablet 10 mg PO DAILY ALLERGIES 01/04/25 History (Allerclear) melatonin 3 mg tablet 3 mg PO PRN Insomnia 5 Unknown History naphazoline-glycerin 0.03 %-0.5 % 2 drp ophthalmic (ey e) Q4H PRN 01/08/25 Unknown History eye drops (Clear Eyes Cooling ITCHY EYES Comfort) naproxen sodium 220 mg capsule 220 mg PO BID PRN pain 01/08/25 01/07/25 History (Aleve) ondansetron HCl 4 mg tablet 4 mg PO Q6H PRN nausea and vomiting 01/08/25 01/07/25 History pantoprazole 40 mg tablet,delayed 40 mg PO DAILY GASTR ITIS 01/08/25 Unknown History release (Protonix) simethicone 125 mg tablet 125 mg PO Q8H PRN abdominal 01/08/25 12/25/24 History (Bicarsim Forte) distention vit A 300 mcg-C 200 mg-E 27 1 tab PO DAILY VERNAL 12/2201/06/25 History mg-lutein 2 mg and minerals tablet CONJUNCTIVITIS (I-Hernan) Allergy/AdvReac Type Severity Reaction Status Date / Time Beta-Blockers Allergy Severe Other Verified 10/22/23 12:02 (Beta-Adrenergic Bloc Horse/Equine Containing AdvReac NEEDS Verified 10/22/23 12:00 Products FOLLOW-UP Sugars, Metabolically Active AdvReac Unknown Verified 10/22/23 12:00 Family History Other Lupus (systemic lupus erythematosus) Scleroderma Surgical History Hx of thymectomy Social History Smoking Status: Former smoker ROS ROS ED ROS Narrative see HPI EXAM Physical Exam Narrative Exam Narrative: Vital signs: Reviewed General: Alert and orientedx3. No acute distress. Chronically ill appearing. Pale. HEENT: Head is normocephalic and atraumatic, sinuses nontender, pupils equal round and reactive. Nares are patent. Oropharynx and throat exams normal. Neck: Supple without lymphadenopathy nontender Cardiovascular: Tachycardic and regular rhythm, no murmurs. No rubs or gallops. Normal S1 and S2 Respiratory: Clear to auscultation bilaterally. No wheezes, rales, rhonchi Abdominal: Soft and nontender. Normal bowel sounds. No guarding or rebound. Nonsurgical abdomen : Rectal exam done with manufacturing coordinator RN at bedside. Melanotic stool on rectal exam. No bright red blood. No hemorrhoids. Extremities: Chronic contractures in bilateral lower extremities. No tenderness. No bruising. Skin: No rash or redness. The rest of the physical exam is unremarkable Const Vital Signs: 01/08/25 09:30 01/08/25 09:58 01/08/25 10:30 Temperature 97.6 F L Temperature Source Temporal Pulse Rate 108 H 102 H Respiratory Rate 18 18 Respiratory Pattern Normal Blood Pressure 155/62 H 124/61 H Blood Pressure Mean 93 82 Blood Pressure Source Blood Pressure Position Blood Pressure Location Pulse Ox 94 98 Oxygen Delivery Method Room Air 01/08/25 11:00 01/08/25 11:40 01/08/25 11:43 Temperature 98 F 98.3 F Temperature Source Oral Oral Pulse Rate 108 H 111 H 106 H Respiratory Rate 18 27 H 15 Respiratory Pattern Blood Pressure 116/78 97/58 L 99/58 L Blood Pressure Mean 90 71 71 Blood Pressure Source Monitor Blood Pressure Position Blood Pressure Location Pulse Ox 98 95 97 Oxygen Delivery Method Room Air Room Air 01/08/25 11:47 01/08/25 11:58 01/08/25 12:00 Temperature 98.3 F 98.3 F Temperature Source Oral Pulse Rate 106 H 100 100 Respiratory Rate 15 18 Respiratory Pattern Blood Pressure 99/58 L 120/80 122/70 H Blood Pressure Mean 71 93 87 Blood Pressure Source Monitor Blood Pressure Position Supine Blood Pressure Location Right Arm Pulse Ox 97 96 100 Oxygen Delivery Method Room Air MDM MDM MDM Narrative Medical decision making narrative: Patient is a 79-year-old female presenting to the emergency department for nausea, vomiting and black tarry stool with a low hemoglobin outpatient by her doctor. Patient was seen and examined. Vitalsare stable. Mildly tachycardic. Differential includes but is not limited to: Upper GI bleed from peptic ulcer, lower GI bleed, hemorrhoids, anal fissure, AVM, diverticulitis, colitis Patient typed and screened for blood given the outpatient hemoglobin of 5.5. PTand PTT ordered. Labs and CT imaging ordered given her nausea and vomiting since . CBC with mild leukocytosis of11.6. Anemia of 5.6. Slight elevation of BUN of 32. Informed consent obtained for 1 unit PRBC. I did recommend that the patient had a CT scan done given she has had nausea and vomiting. She refused. Fecal occult was positive. Patient admitted to the hospitalist for further management. I did speak to GI, Dr. Foy, who agreed with need for EGD. Hospitalist spoke with the patient and recommended to CT again however the patient declined once again. She understands the risks and benefits of not having it done. Clinical impression: GI bleed anemia Lab Data Labs: Laboratory Results - last 24 hr 01/08/25 01/08/25 09:39 09:39 WBC 11.6 H RBC 1.77 L Hgb 5.6 L* Hct 17.4 L MCV 98.3 MCH 31.6 MCHC 32.2 RDW Std Deviation 42.6 RDW Coeff of Meir 12.3 Plt Count 350 MPV 11.0 Immature Gran % (Auto) 0.500 Neut % (Auto) 72.0 H Lymph % (Auto) 20.1 Jerauld % (Auto) 6.3 Eos % (Auto) 0.8 Baso % (Auto) 0.3 Absolute Neuts (auto) 8.3 H Absolute Lymphs (auto) 2.33 Nucleated RBC % 0 PT 14.4 INR 1.1 APTT 24.3 Sodium 140 Potassium 4.2 Chloride 107 Carbon Dioxide 23.6 Anion Gap 9 BUN 32 H Creatinine 0.61 L Estim Creat Clear Calc 55.63 Est GFR (MDRD) Non-Af 92 BUN/Creatinine Ratio 52.6 H Glucose 121 H Calcium 9.0 Total Bilirubin 0.23 AST 20 ALT 21 Alkaline Phosphatase 63 Total Protein 5.4 L Albumin 3.4 Globulin 2.1 L Albumin/Globulin Ratio 1.6 Lipase 28 Blood Type O POSITIVE Antibody Screen NEGATIVE Crossmatch See Detail See Detail Discharge Plan Disposition Disposition: Acute Care Hospital [facility] Discharge Date/Time: 01/08/25 13:35 What to do if you have Problems For any increased pain, shortness of breath, bleeding, nausea or vomiting, chestpain, or any unexpected problems, contact your Primary Care Provider. Call [facility] ([phone]) or report tothe closest Emergency Room. Call 911 if necessary. 01/08/25 2384 Cosigner Signature (if applicable): CC: Dr. Ishaan Bernabe MD ~ Signed [facility]08-18-2025 Evaluation note* Diagnosis Onset Date Resolution Status Admit Date Acute anemia acute January 08, 2025 12:08pm GI bleed acute January 08, 025 12:08pm [facility] Work Phone: [phone] 834-992805-28-2024 Telephone encounter Note* Telephone Encounter - Rebecca Blanco MA - 10/19/2023 4:51 PM EDT Spoke with patient and given provider message. She states that she has a caregiver to help her today. If anything, she will go tomorrow, refusing to go today. Rebecca Blanco MA October 19, 2023 4:58 PM [facility]05-28-2024 Miscellaneous Notes* Telephone Encounter - Rebecca Blanco MA - 10/19/2023 4:51 PM EDT Spoke with patient and given provider message. She states that she has a caregiver to help her today. If anything, she will go tomorrow, refusing to go today. Rebecca Blanco MA October 19, 2023 4:58 PM * Telephone Encounter - Mynor Hampton MD - 10/19/2023 4:33 PM EDT Hard to tell. If unable to be ambulate or care for self, to JAQUI escobedo. * Telephone Encounter - Jose Miguel Alcala MSW - 10/19/2023 3:21 PM EDT Adelaide unsure as to the likelihood of [facility] admitting patient regarding below. Sw will defer message to DAT Caldera for his input on below. * Telephone Encounter - Pattie Rider RN - 10/19/2023 1:58 PM EDT Pt calling in stating that she is [...] her to the ER then but pt didnot want to go. She states she has agreed to go so her family is taking her in tomorrow to the ER. Pt thought [facility]field would still be able to take care of her while she is in the hospital. Explained that the hospital providers would take over her care. Pt verbalized understanding. Attempted to get a hold of social science analyst as it appears she was trying to call pt back. Pt will keep her phone on and with her. * Telephone Encounter - Jose Miguel Alcala MSW - 10/19/2023 11:07 AM EDT Sw received message from patient requesting call back. Sw called patient back and phone rings with [employer] operations assistant coming on. No answer to call. Adelaide will try call another time. documented in this encounter[facility]24 Telephone encounter Note * Telephone Encounter - Mynor Hampton MD - 10/19/2023 4:33 PM EDT Hard to tell. If unable to be ambulate or care for self, to JAQUI escobedo. [facility]05-28-2024 Telephone encounter Note* Telephone Encounter - Jose Miguel Alcala MSW - 10/19/2023 3:21 PM EDT Sw unsure as to the likelihood of [facility] admitting patient regarding below. Sw will defer message to DAT Caldera for his input on below. [facility]05-28-2024 Telephone encounter Note* Telephone Encounter - Pattie Rider RN - 10/19/2023 1:58 PM EDT Pt calling in stating that she is [...] her to the ER then but pt didnot want to go. She states she has agreed to go so her family is taking her in tomorrow to the ER. Pt thought [facility] would still be able to take care of her while she is in the hospital. Explained that the hospital providers would take over her care. Pt verbalized understanding. Attempted to get a hold of social science analyst as it appears she was trying to call pt back. Pt will keep her phone on and with her. [facility]05-28-2024 Telephone encounter Note* Telephone Encounter - Jose Miguel Alcala MSW - 10/19/2023 11:07 AM EDT Sw received message from patient requesting call back. Sw called patient back and phone rings with [employer] operations assistant coming on. No answer to call. Adelaide will try call another time. [facility]05-13-2024 Miscellaneous Notes* Telephone Encounter - Jaquelin Ledbetter LPN - 10/04/2023 4:46 PM EDT Pt calls to request order for wheelchair be faxed to [employer] @ [phone]. Order and pt information faxed as requested. Pt also reports NSM phone #[phone]. Jaquelin Ledbetter LPN documented in this encounterOhiohealth [facility]05-13-2024 Telephone encounter Note * Telephone Encounter - Jaquelin Ledbetter LPN - 10/04/2023 4:46 PM EDT Pt calls to request order for wheelchair be faxed to [facility] [facility] @ [phone]. Order and pt information faxed as requested. Pt also reports [facility] phone #[phone]. Jaquelin Ledbetter LPN [facility]04-19-2024 Miscellaneous Notes* Telephone Encounter - Hanane Roblero - 09/10/2023 12:46 PM EDT Patient has been identified by name and [...] Thank you. Hanane Roblero. documented in this encounterOhiohealth Nelsonville Health Center03-19-2024 Miscellaneous Notes* Telephone Encounter - Keesha Isaacs LPN - 08/10/2023 3:34 PM EDT Closing encounter. Once patient is able to find out can print out order for wheelchair. * Telephone Encounter - Keesha Isaacs LPN - 08/02/2023 4:12 PM EDT Spoke with patient to update. Has yet to find out. States will call tomorrow. * Telephone Encounter - Beena Whitfield PA-C - 07/29/2023 1:53 PM EST Telephone on 07/28/23 STANDARD WHEELCHAIR Thanks, Werner Whitfield PA-C * Telephone Encounter - Zayda Charles LPN - 07/28/2023 3:47 PM EST Patient calling she lost the order for the standard wheel chair. Patient is going to call her insurance to see which DME is covered and call back with name and fax number. Please advise documented in this encounterOhiohealth Nelsonville Health Center03-12-2024 Miscellaneous Notes* Telephone Encounter - Jose Miguel Alcala MSW - 08/03/2023 12:54 PM EDT Adelaide spoke with patient and provided [facility], [facility], [facility],and [facility] contact information. Sw told patient that patient insurance stated that home care aids by their self, are not available through patient insurance. Only available with conjunction of [place]/OT. Patient reports that she will reach out to above agencies and will start with [facility] tosee about resources they may have for assistance.Patient notes that she will compare cost and hour availability. Patient thanked Adelaide for call back and resources. * Telephone Encounter - Jose Miguel Alcala MSW - 08/03/2023 10:53 AM EDT Sw tried call to patient to discuss below information. Sw left message that Sw will try call again to patient this afternoon 08/02 @2pm. * Telephone Encounter - Jose Miguel Alcala MSW - 08/02/2023 12:48 PM EDT Adelaide called [employer] [facility]. Patient insurance notes that home clinical care coordinator is only available through patient insurance if patient has also a [place] facility/PT/OT need. The only other home care program available is for someone with a serious health condition that alsoneeds [place] assistance. There are no other home care assistance options available under patient insurance. Sw will compile self pay home care agency options and respite care SNF provider options in the area. Sw will follow up with patient tomorrow 08/03/23 in regards to this information. * Telephone Encounter - Jose Miguel Alcala MSW - 07/30/2023 4:22 PM EST Sw tried call to [employer] and phone call would not go through. Sw will try call again on 08/02/23. * Telephone Encounter - Jose Miguel Alcala MSW - 07/30/2023 4:09 PM EST Patient and Sw discussed home clinical care coordinator agency. Patient notes that her insurance told her that they would cover a home clinical care coordinator. Patient reports that she would need home clinical care coordinator from 08/17-08/31. Laine notes that her caregivers are going out of town on a cruise and she needs someone to assist her when they are gone. Need to check and see if a home clinical care coordinator agency is accepted by patient insurance. Adelaide notes that osmar have to call patient insurance to see about a listing of home clinical care coordinator agencies that are in network with patient insurance. [phone] [facility] [phone] number Sw noted to patient that she would see about home clinical care coordinator agency names in network with insurance. Sw noted that she would call patient back on Wednesday next week to update her on what Adelaide has found out. * Telephone Encounter - Zayda Charles LPN - 07/28/2023 3:49 PM EST Patient calling needs some help, her caregiver is going on a cruise later this month. Patient needsto find some help at home, she is not sure how to go about doing that. She had wrong phone number listed on her chart, now have correct one. documented in this encounterOhiohealth Nelsonville Health Center02-28-2024 Miscellaneous Notes* Telephone Encounter - Jose Miguel Alcala MSW - 07/21/2023 12:02 PM EST Adelaide called patient and left message to have call returned to discuss community social service/medicare questions. * Telephone Encounter - Jose Miguel Alcala MSW - 07/19/2023 9:56 AM EST Adelaide tried call again to patient and received message "welcome to [employer] your call cannot be completed as dialed." Tried call again and received same message. * Telephone Encounter - Jose Miguel Alcala MSW - 07/16/2023 12:53 PM EST Adelaide tried call to patient and received message"all circuits are busy now, please try call again later." * Telephone Encounter - Jose Miguel Alcala MSW - 07/15/2023 9:33 AM EST Sw left message for patient tor return Sw call to discuss community resources/medicare questions. documented in this encounterOhiohealth Nelsonville Health Center02-20-2024 NoteHNO ID: [id number] Author: Beena WHITFIELD PA-C Service: ? Author Type: Physician Peoplesoft Developer Type: Progress Notes Filed: 07/13/2023 20:01 Note [...] refuse medication, talking about [employer] and subversive politics Stomach complaints/ diarrhea Yes, chronic but [...] level is better, not as bad. Using Montebello very sparingly: cuts in half, at most [...] a day usually works. Montelukast 10mg daily Electrician Master: none. Interval history: no significant changes. . [...] warm weather Weather turne (more content not included)...[facility]02-20-2024 History of Present illness Narrative* Beena Whitfield PA-C - 07/13/2023 11:00 AM EST 78 year old female with c/o feeling [...] n/a Continues to refuse medication, talking about [employer] and [employer] politics Stomach complaints/ diarrhea Yes, chronic but [...] level is better, not as bad. Using Montebello very sparingly: cuts in half, at most [...] a day usually works. Montelukast 10mg daily Electrician Master: none. Interval history: no significant changes. . [...] day. Current symptoms: Has been better. Kt (lawn specialist) is cooking healthy meals for her instead [...] Mixed Hyperlipidemia Major Depression in Partial Remission ([facility]) Myasthenia Gravis ([facility]) Peripheral Neuropathy Type 2 Diabetes Mellitus With Diabetic Neuropathy, Without Long-Term Current Use of Insulin ([facility]) Anxiety Chronic Asthmatic Bronchitis Sandra (Iron Deficiency [...] in both eyes four times daily. 10 mL3 albuterol HFA (VENTOLIN HFA) 90 mcg/actuation inhaler Inhale 2 Puffs as instructed every 4 hours asneeded. 18 g 2 Estradiol (ESTRACE) 0.5 mg tablet Take 1 tablet by mouth once daily. 90 tablet 1 montelukast (SINGULAIR) 10 mg tablet Take 1 tablet by mouth daily at bedtime. 90 tablet 3 fluticasone (FLONASE) 50 mcg/actuation nasal spray Use 2 Sprays in each nostril once daily. 18.2 mL3 diphenoxylate-atropine (LOMOTIL) 2.5-0.025 mg per tablet Take 1 tablet by mouth four times daily asneeded for up to 60 days. 60 tablet 3 pyridostigmine (MESTINON) 60 mg tablet Take 1 tablet by mouth three times daily as needed. (Patienttaking differently: Take 30 mg by mouth four [...] YR, HIGH DOSE, QUADRIVALENT (FLUZONE HIGH-DOSE) - [employer] COVID-19 VACCINE (2022- SEASON) AGE 12+ YR 2. Myasthenia gravis [...] BLD Follow in 3 months and through [facility] if having intermittent difficulties. Beena Whitfield PA-C Some of this note may have been copied and pasted for the purpose of history context and comparisonand has been adjusted for changes in prior data. Beena Whitfield PA-C documented in this encounterOhiohealth Nelsonville Health Center12-01-2023 Miscellaneous Notes* Telephone Encounter - Faheem Martinez - 04/23/2023 11:20 AM EST Phoned pt, reached same recording- all circuits are busy. Faheem Martinez * Telephone Encounter - Adriana Reyna Ma - 04/23/2023 9:58 AM EST Tried to reach pt, Still receiving same recording. Adriana Reyna Ma * Telephone Encounter - Faheem Martinez - 04/21/2023 10:01 AM EST Phoned pt, reached recording that states all circuits are busy. Faheem Martinez * Telephone Encounter - Beena Whitfield PA-C - 04/21/2023 5:50 AM EST She can get #30 tabs on-line Good [facility] for $0.58 She could get the generic much cheaper. Is she willing to try? Thanks, Werner Whitfield PA-C * Telephone Encounter - Francisca Denise - 04/20/2023 3:57 PM EST Sade is calling Beena Whitfield PA-C today with [...] calling: self Call patient at: at home [phone] (home) [phone] (cell) Was an appointment scheduled: No Closing statement: Results or non-symptom based questions: Thank you for calling [facility], your call will be returned within the next business day. Francisca Paredes documented in this encounterOhiohealth Nelsonville Health Center11-07-2023 Miscellaneous Notes* Telephone Encounter - Francisca Denise - 03/30/2023 10:06 AM EST Patient has been identified by name and date of : Yes Requested Prescriptions Pending Prescriptions Disp Refills CLARITIN-D 12 HOUR 5-120 mg per tablet 60 tablet 3 Sig: Take 1 tablet by mouth two times a day. No generic requesting brand name RX INSTRUCTIONS: Patient aware RX will be sent to pharmacy. No need to notify patient. Francisca Paredes documented in this encounterOhiohealth Nelsonville Health Center10-19-2023 Miscellaneous Notes* Telephone Encounter - Beena Whitfield PA-C - 03/11/2023 5:08 PM EDT The following approved medication requests have been transmitted electronically. Requested Prescriptions Signed Prescriptions Disp Refills sertraline (ZOLOFT) 100 mg tablet 90 tablet 3 Sig: Take 1 tablet by mouth once daily. Authorizing Provider: Beena WHITFIELD PA-C * Telephone Encounter - Kamryn Lamar Ma - 03/11/2023 4:24 PM EDT Please resend rx Kamryn Lamar Ma * Telephone Encounter - Veronica Rae - 03/11/2023 4:08 PM EDT Patient stated she tried to refill her sertraline rx and [facility] is insisting she doesn't have anymore refills. Epic shows there should be refills at pharmacy. Wants to know if we can clarify with the pharmacy what the issue is. documented in this encounterOhiohealth Nelsonville Health Center10-18-2023 NoteHNO ID: [id number] Author: Lizzie Cardoza MD Service: ? Author [...] by others. I have seen and examined Sade Rush. I have discussed the case and the management of this patient's care with the Resident/Fellow, if applicable. I also have reviewed and agree with the assessment and plan as stated above and agree with all of its relevant components. Lizzie Cardoza, [facility]10-18-2023 NoteHNO ID: [id number] Author: Darrion Mott RT(R) Service: ? Author Type: Technologist Type: Progress Notes Filed: 03/10/2023 1:43 PM Note Text: Radiology Service Progress Note PATIENT NAME: Sade Rush DATE OF SERVICE: March 10, 2023 [...] BY: RT Jose(R) March 10, 2023 1:27 [facility]10-18-2023 History of Present illness Narrative* Lizzie Cardoza MD - 03/10/2023 2:57 PM EDT Assessment and Plan 1. Type 2 diabetes [...] by others. I have seen and examined Sade Rush. I have discussed the case and the management of this patient's care with the Resident/Fellow, if applicable. I also have reviewed and agree with the assessment and plan as stated above and agree withall of its relevant components. Lizzie Cardoza MD documented in this encounterOhiohealth Nelsonville Health Center10-18-2023 History of Present illness Narrative* Darrion Mott RT(R) - 03/10/2023 1:00 PM EDT Radiology Service Progress Note PATIENT NAME: Sade Rush DATE OF SERVICE: March 10, 2023 TIME: 1:27 PM PATIENT IDENTITY VERIFICATION COMPLETED USING TWO (2) IDENTIFIERS: Name and Date of confirmedby patient verbally. FALL SCREENING: Has the patient [...] 10, 2023 1:27 PM documented in this encounterOhiohealth Nelsonville Health Center10-10-2023 NoteHNO ID: [id number] Author: Beena Whitfield PA-C Service: ? Author Type: Physician Peoplesoft Developer Type: Progress Notes Filed: 03/02/2023 12:41 PM [...] cholesterol. Observing low cholesterol high fiber diet: lawn specialist trying to cook meals, less Escalante's/ junk [...] exam: due. Polyneuropathy associated with underlying disease ([facility]) Current medications: Hydrocodone 5-3 25 #28 1 tablet every 6 hours as needed for pain sparingly Camphor-methyl salicylate-menthol patch 3.1-10-6% daily as needed to site Tylenol arthritis 650 mg CR 2 capsules every 8 hours as needed Pain level is better, not as bad. Using Montebello very sparingly: cuts in half, at most twice a day. Myasthenia gravis ([facility]) Pyridostigmine 60mg three times a day [...] a day usually works. Montelukast 10mg daily Electrician Master: none. Interval history: no significant changes. . [...] Joint mostly left shoulder. (more content not included)...[facility]10-10-2023 Instructions* Patient Instructions* Beena Whitfield PA-C - 03/02/2023 11:23 AM EDT BONE MINERAL DENSITY PATIENT INSTRUCTIONS Bone mineral density testing measures the amount of calcium in certain parts of your bones. This information determines how strong your bones are. The test is used to detect osteoporosis, a disease in which the bone's mineral content and density are low, increasing a person's risk of fractures. Thelumbar spine (lower back) and the hip are [...] your usual activities immediately. documented in this encounterOhiohealth Nelsonville Health Center10-10-2023 History of Present illness Narrative* Beena Whitfield PA-C - 03/02/2023 10:40 AM EDT 77 year old female with c/o here [...] read research that people live longer with highcholesterol. Observing low cholesterol high fiber diet: lawn specialist trying to cook meals, less Escalante's/ junk [...] exam: due. Polyneuropathy associated with underlying disease (formerly [facility]) Current medications: Hydrocodone 5-3 25 #28 1 tablet every 6 hours as needed for pain sparingly Camphor-methyl salicylate-menthol patch 3.1-10-6% daily as needed to site Tylenol arthritis 650 mg CR 2 capsules every 8 hours as needed Pain level is better, not as bad. Using Montebello very sparingly: cuts in half, at most twice a day. Myasthenia gravis (formerly [facility]) Pyridostigmine 60mg three times a day [...] a day usually works. Montelukast 10mg daily Electrician Master: none. Interval history: no significant changes. . [...] day. Current symptoms: Has been better. Kt (lawn specialist) is cooking healthy meals for her instead [...] Mixed Hyperlipidemia Major Depression in Partial Remission ([facility]) Myasthenia Gravis ([facility]) Peripheral Neuropathy Type 2 Diabetes Mellitus With Diabetic Neuropathy, Without Long-Term Current Use of Insulin ([facility]) Anxiety Chronic Asthmatic Bronchitis Sandra (Iron Deficiency [...] in both eyes four times daily. 10 mL3 CLARITIN-D 12 HOUR 5-120 mg per tablet Take 1 tablet by mouth twice daily. No generic requesting brand name 60 tablet 3 albuterol HFA (VENTOLIN HFA) 90 mcg/actuation inhaler Inhale 2 Puffs as instructed every 4 hours asneeded. 18 g 2 Estradiol (ESTRACE) 0.5 mg [...] Sprays in each nostril once daily. 18.2 mL3 Promethazine-DM (PHENERGAN-DM) 6.25-15 mg/5 mL syrup Take 5 mL by mouth four times daily as needed (not in same 12h as Clariten D). 120 mL 1 diphenoxylate-atropine (LOMOTIL) 2.5-0.025 mg per tablet Take 1 tablet by mouth four times daily asneeded for up to 60 days. 60 tablet 3 pyridostigmine (MESTINON) 60 mg tablet Take 1 tablet by mouth three times daily as needed. (Patienttaking differently: Take 30 mg by mouth four [...] A1C 5. Polyneuropathy associated with underlying disease (HCC) - ICD9: 357.4, ICD10: G63 Doing pretty well, 6. Myasthenia gravis (HCC) - ICD9: 358.00, ICD10: G70.00 As above, [...] for the purpose of history context and comparisonand has been adjusted for changes in prior data. Beena Whitfield PA-C documented in this encounterOhiohealth Nelsonville [facility] Center07-12-2023 Miscellaneous Notes* Telephone Encounter - Trista Machado - 12/02/2022 5:23 PM EDT Eliza from [employer] area called to give patient update that the request for an air conditioner has been denied as a non-covered Medicare benefit. If there are any questions,you can call her at the number above. documented in this encounterOhiohealth Nelsonville [facility] Center07-11-2023 Miscellaneous Notes* Telephone Encounter - Rebecca Blanco Ma - 12/01/2022 4:28 PM EDT Letter faxed * Telephone Encounter - Beena Whitfield PA-C - 12/01/2022 1:13 PM EDT Printed. Werner Payne PA-C * Telephone Encounter - Veronica Painter LPN - 12/01/2022 8:59 AM EDT Eliza from [employer] would like Rx/letter for Air Conditioner for Pt. She has COPD and allergies. Please fax to . documented in this encounterOhiohealth Nelsonville Health Center07-11-2023 NoteHNO ID: [id number] Author: Beena Whitfield PA-C Service: ? Author Type: Physician Peoplesoft Developer Type: Progress Notes Filed: 12/01/2022 2:01 PM [...] Lymph 1.00 - 4.00 k/uL 2.49 1.51 Jerauld% % 7.1 4.4 Abs Jerauld <0.87 k/uL 0.65 0.56 Eosin% % 4.0 [...] n/a Observing low cholesterol high fiber diet: lawn specialist trying to cook meals, less Escalante's/ junk [...] level is better, not as bad. Using Montebello very sparingly. Myasthenia gravis (hcc) Pyridostigmine 60mg [...] a day usually works. Montelukast 10mg daily Electrician Master: none. Interval history: no significant changes. . (more content not included)...[facility]07-11-2023 History of Present illness Narrative* Beena Whitfield PA-C - 12/01/2022 10:00 AM EDT 77 year old female with c/o here [...] Lymph 1.00 - 4.00 k/uL 2.49 1.51 Jerauld% % 7.1 4.4 Abs Jerauld <0.87 k/uL 0.65 0.56 Eosin% % 4.0 [...] n/a Observing low cholesterol high fiber diet: lawn specialist trying to cook meals, less Escalante's/ junk [...] level is better, not as bad. Using Montebello very sparingly. Myasthenia gravis (hcc) Pyridostigmine 60mg [...] a day usually works. Montelukast 10mg daily Electrician Master: none. Interval history: no significant changes. . [...] day. Current symptoms: Has been better. Kt (lawn specialist) is cooking healthy meals for her instead [...] in both eyes four times daily. 10 mL3 CLARITIN-D 12 HOUR 5-120 mg per tablet Take 1 tablet by mouth twice daily. No generic requesting brand name 60 tablet 3 albuterol HFA (VENTOLIN HFA) 90 mcg/actuation inhaler Inhale 2 Puffs as instructed every 4 hours asneeded. 18 g 2 Estradiol (ESTRACE) 0.5 mg [...] Sprays in each nostril once daily. 18.2 mL3 lisinopril (PRINIVIL) 20 mg tablet Take 1 tablet by mouth once daily. 90 tablet 1 Promethazine-DM (PHENERGAN-DM) 6.25-15 mg/5 mL syrup Take 5 mL by mouth four times daily as needed (not in same 12h as Clariten D). 120 mL 1 diphenoxylate-atropine (LOMOTIL) 2.5-0.025 mg per tablet Take 1 tablet by mouth four times daily asneeded for up to 60 days. 60 tablet 3 pyridostigmine (MESTINON) 60 mg tablet Take 1 tablet by mouth three times daily as needed. (Patienttaking differently: Take 30 mg by mouth four [...] 116/70 Pulse 89 Ht 160 cm (5' 3") Wt 70.3 kg (155 lb) SpO2 97% [...] unspecified whether esophagitis present - ICD9: 530.81, ICD10:K21.9 - Discussed lifestyle modifications including losing weight, [...] history context and comparison. documented in this encounterOhiohealth Nelsonville Health Center07-11-2023 Instructions* Patient Instructions* Beena Whitfield PA-C - 12/01/2022 5:34 AM EDT BONE MINERAL DENSITY PATIENT INSTRUCTIONS Bone mineral density testing measures the amount of calcium in certain parts of your bones. This information determines how strong your bones are. The test is used to detect osteoporosis, a disease in which the bone's mineral content and density are low, increasing a person's risk of fractures. Thelumbar spine (lower back) and the hip are [...] your usual activities immediately. documented in this encounterOhiohealth Nelsonville Health Center06-23-2023 Miscellaneous Notes* Telephone Encounter - OWEN Sadler - 11/13/2022 10:01 AM EDT [facility]AMA 09/03/22 NOV 11/30/22 Please review and advise. Thank you. OWEN Sadler * Telephone Encounter - Lauren Jacobs - 11/13/2022 9:40 AM EDT pt also needing nausea med does not [...] and advise. Lauren Jacobs documented in this encounterOhiohealth Nelsonville [facility] Center04-13-2023 History of Present illness Narrative* Beena Whitfield PA-C - 09/03/2022 10:00 AM EDT 77 year old female with c/o here [...] 5.5 ) Polyneuropathy associated with underlying disease (formerly [facility]) Current medications: Hydrocodone 5-3 25 #28 1 tablet every 6 hours as needed for pain sparingly Camphor-methyl salicylate-menthol patch 3.1-10-6% daily as needed to site Tylenol arthritis 650 mg CR 2 capsules every 8 hours as needed pain level is better, not as bad. Feels Myasthenia gravis (formerly [facility]) Pyridostigmine 60mg three times a day [...] a day usually works. Montelukast 10mg daily Electrician Master: none. Interval history: no significant changes. . [...] Recurrent major depressive disorder, in partial remission (formerly [facility]) Current medications: Sertraline 100mg daily Feels she [...] 1 tablet by mouth four times daily asneeded for up to 60 days. 60 tablet [...] 2 Puffs as instructed every 4 hours asneeded. 18 g 2 budesonide-formoterol (SYMBICORT) 80-4.5 mcg/actuation [...] Sprays in each nostril once daily. 18.2 mL3 Cromolyn Sodium (CROLOM) 4 % ophthalmic solution Use 1-2 Drops in both eyes four times daily. 10 mL3 metFORMIN (GLUCOPHAGE) 500 mg tablet Take 1 [...] unspecified whether esophagitis present - ICD9: 530.81, ICD10:K21.9 - Discussed lifestyle modifications including losing weight, [...] - HYDROCODONE 5 MG-ACETAMINOPHEN 325 MG TABLET M Kerri Whitfield PA-C documented in this encounterOhiohealth Nelsonville [facility] Center03-10-2023 Miscellaneous Notes* Telephone Encounter - Dee Ro LPN - 07/31/2022 2:37 PM EST Follow up scheduled 08/31/22 * Telephone Encounter - Gisella Carr - 07/31/2022 2:30 PM EST Patient has been identified by name and [...] notify patient. Gisella Carr documented in this encounterOhiohealth Nelsonville Health Center02-13-2023 Miscellaneous Notes* Telephone Encounter - Gisella Carr - 07/06/2022 11:28 AM EST Patient has been identified by name and [...] notify patient. Gisella Carr documented in this encounterOhiohealth Nelsonville Health Center01-31-2023 Miscellaneous Notes* Telephone Encounter - Kamryn Lamar Ma - 06/23/2022 2:13 PM EST Images from the original note were not included. DAT approved and left message for patient friend kt who is noted in chart authorized Kamryn Lamar Ma * Telephone Encounter - Kamryn Lamar Ma - 06/19/2022 2:57 PM EST Prior Authorization has been completed online at [employer] for estrmiriam, will await response. BANKS- [id number] Please keep encounter open until final decision has been received and documented from insurance company. Kamryn Lamar MA documented in this encounterOhiohealth Nelsonville Health Center01-13-2023 History of Present illness Narrative* Beena Whitfield PA-C - 06/05/2022 10:27 AM EST 77 year old female with c/o Slept 2 days solid, feeling better. Was fighting off something she thinks. More energy today. Breathing better today with walking. Either feels good or doesn't. Slid of bed onto floor, was able to get on knees and back into bed. Eating pashto fries a lot- putting on weight. Doesn't [...] 2 Puffs as instructed every 4 hours asneeded. 18 g 2 SUMAtriptan (IMITREX) 100 mg [...] 1 tablet by mouth four times daily asneeded for up to 60 days. 60 tablet [...] Sprays in each nostril once daily. 18.2 mL3 Cromolyn Sodium (CROLOM) 4 % ophthalmic solution Use 1-2 Drops in both eyes four times daily. 10 mL3 metFORMIN (GLUCOPHAGE) 500 mg tablet Take 1 [...] deformities, ulcers, calluses, normal distal pulses, and sensitiveto 10 gm monofilament ASSESSMENT/PLAN: 1. Type 2 [...] preference Beena Whitfield PA-C documented in this encounterOhiohealth Nelsonville Health Center01-10-2023 Miscellaneous Notes* Telephone Encounter - Fani Lopez RN - 06/02/2022 9:58 AM EST Patient calls to cancel 3 month follow up because of dizziness d/t pain. Patient reports history ofdizziness but this is worse d/t the pain. [...] when I get pain I feel dizzy. "I have had it before it is nothing new." Patient states, "Call me a baby but I really just don't want to come out in the cold." 2. LIGHTHEADED: A little dizzy when standing. [...] by doctor appointment. Protocols used: Dizziness - [id number] * Telephone Encounter - Audrey Carr RN - 06/02/2022 9:40 AM EST Patient had called and spoke with PSS [...] nurse. Audrey Carr RN documented in this encounterOhiohealth Nelsonville Health Center12-22-2022 Miscellaneous Notes* Telephone Encounter - Dee Ro LPN - 05/14/2022 10:21 AM EST Scheduled 06/02/22 * Telephone Encounter - Audrey Dennis - 05/14/2022 8:59 AM EST Patient has been identified by name and [...] Thank you. Audrey Dennis documented in this encounterOhiohealth Nelsonville Health Center12-16-2022 Miscellaneous Notes* Telephone Encounter - Lakshmi Mclaughlin [facility] - 05/08/2022 9:57 AM EST Patient has been identified by name and [...] as needed. Please review and advise. Lakshmi Mclaughlin Pss documented in this encounterOhiohealth Nelsonville Health Center12-08-2022 Miscellaneous Notes* Telephone Encounter - Vanessa Ryan - 04/30/2022 9:34 AM EST Patient has been identified by name and [...] and advise. Vanessa Ryan documented in this encounterOhiohealth Nelsonville Health Center10-31-2022 Miscellaneous Notes* Telephone Encounter - Rosalina Clark MA - 03/23/2022 11:38 AM EDT Patient has been identified by name and [...] 02/2022 Nov: 05/2022 Last refill: 10/2021 (imitrex) * Telephone Encounter - Francisca Lyon Pss - 03/23/2022 11:26 AM EDT Patient has been identified by name and [...] patient. Francisca Lyon Pss documented in this encounterOhiohealth Nelsonville Health Center10-10-2022 Miscellaneous Notes* Telephone Encounter - Beena Whitfield PA-C - 03/02/2022 5:13 PM EDT The following approved medication requests have been transmitted electronically. Requested Prescriptions Signed Prescriptions Disp Refills budesonide-formoterol (SYMBICORT) 80-4.5 mcg/actuation inhaler 1 Each 11 Sig: Inhale 2 Puffs as instructed twice daily. Authorizing Provider: Beena WHITFIELD PA-C * Telephone Encounter - Melody Martinez LPN - 03/02/2022 4:25 PM EDT Generic Symbicort is not covered, insurance stating Brand Symbicort is preferred. Please send new rx for brand to pharmacy. Ifrah Martinez LPN documented in this encounterOhiohealth Nelsonville Health Center10-10-2022 History of Present illness Narrative* Beena Whitfield PA-C - 03/02/2022 10:00 AM EDT 76 year old female with c/o here [...] a day usually works. Montelukast 10mg daily Electrician Master: none. Interval history: no significant changes. . [...] 1 tablet by mouth four times daily asneeded for up to 60 days. 60 tablet [...] 2 Puffs as instructed every 4 hours asneeded. 18 g 2 budesonide-formoterol (SYMBICORT) 80-4.5 mcg/actuation inhaler Inhale 2 Puffs as instructed twice daily. 1 Each 5 fluticasone (FLONASE) 50 mcg/actuation nasal spray Use 2 Sprays in each nostril once daily. 18.2 mL3 pyridostigmine (MESTINON) 60 mg tablet Take 1 tablet by mouth three times daily as needed. 90 tablet 5 Cromolyn Sodium (CROLOM) 4 % ophthalmic solution Use 1-2 Drops in both eyes four times daily. 10 mL3 metFORMIN (GLUCOPHAGE) 500 mg tablet Take 1 [...] (HCC) - ICD9: 250.60, 357.2, ICD10: E11.40 Controlled. - Continue current medications 4. Polyneuropathy associated with underlying disease (HCC) - ICD9: 357.4, ICD10: G63 stable 5. Myasthenia gravis (HCC) - ICD9: 358.00, ICD10: G70.00 Maintaining on [...] history context and comparison. documented in this encounterOhiohealth Nelsonville Health Center09-06-2022 Miscellaneous Notes* Telephone Encounter - [facility] - 01/27/2022 4:31 PM EDT Patient has been identified by name and [...] to pharmacy. No need to notify patient. [facility] documented in this encounterOhiohealth Nelsonville Health Center08-16-2022 History of Present illness Narrative* Beena Whitfield PA-C - 01/06/2022 12:21 PM EDT 12:23 PM Schedule was behind, patient left. Mailbox is full and cannot accept messages. Werner Whitfield PA-C documented in this encounterOhiohealth Nelsonville Health Center08-16-2022 Miscellaneous Notes* Telephone Encounter - Beena Allison RN - 01/06/2022 12:20 PM EDT Patient states she does not feel good. Reports she missed VV with pcp because she vomited then wentto bed. Reports he is helping her. States she doesn't feel like talking right now. Will call back to reschedule VV when she feels better. documented in this encounterOhiohealth Nelsonville Health Center08-12-2022 Miscellaneous Notes* Telephone Encounter - Dee Ro LPN - 01/02/2022 12:34 PM EDT Again mailbox is full. Encounter closed. * Telephone Encounter - Dee Ro LPN - 01/01/2022 12:49 PM EDT Patient unable to be reached mailbox is full. * Telephone Encounter - Beena Whitfield PA-C - 01/01/2022 12:16 PM EDT The following approved medication requests have been transmitted electronically. Requested Prescriptions Signed Prescriptions Disp Refills Promethazine-DM (PHENERGAN-DM) 6.25-15 mg/5 mL syrup 120 mL 0 Sig: Take 5 mL by mouth four times daily as needed. Authorizing Provider: Beena WHITFIELD PA-C * Telephone Encounter - Beena Allison RN - 01/01/2022 11:03 AM EDT Patient phoned to get set up on [facility] in order to have her VV. Helped patient get the [facility], but nurse there is helping her set it up and unable to do this in time for today's VV. Re-scheduled VV with "Werner only" per patient request. They will call back when ready to learn how to manage the VV. Patient reports someone who visited her tested positive for covid, and yesterday she started with asore throat, and now has a cough. Reports she is not feeling bad, and not interested in a VV to discuss taking paxlovid, but asking if Werner would send Rx for the cough medicine you prescribed for kye while ago. Patient doesn't remember what it was. documented in this encounterOhiohealth Nelsonville Health Center06-29-2022 Miscellaneous Notes* Telephone Encounter - Bjorn White Ma - 11/19/2021 2:12 PM EDT SHAMA: 10/07/2021 Last refill: 07/03/2021 QTY: 30 Refills: 1 Patient's request for medication is as follows: Pending Prescriptions Disp Refills ONDANSETRON HCL 4 MG TABLET 30 tablet 1 Sig: Take 1 tablet by mouth every 8 hours as needed. LUZ MARIA: No Please approve the above prescription(s) to electronically send to pharmacy. Bjorn White Ma * Telephone Encounter - Hanane Roblero - 11/19/2021 2:06 PM EDT Patient has been identified by name and date of : Yes Pending Prescriptions Disp Refills ONDANSETRON HCL 4 MG TABLET 30 tablet 1 Sig: Take 1 tablet by mouth every 8 hours as needed. LUZ MARIA: No RX INSTRUCTIONS: Patient aware RX will be sent to pharmacy. No need to notify patient. Hanane Roblero documented in this encounterOhiohealth Nelsonville Health Center06-23-2022 Miscellaneous Notes* Telephone Encounter - Vanessa Paredes - 11/13/2021 3:48 PM EDT Sumatriptan - She needs 15 for next month. She was given 4 extra last month and when she requested this month's meds she was given 4, but it should have been 15. Please review and send. * Telephone Encounter - Vanessa Hargrove Greyson Paredes - 11/13/2021 3:46 PM EDT Pharmacy verified in [facility] Patient has been identified by name and [...] by mouth once daily. LUZ MARIA: No SALWDSIV-ULVCNSZID-LSUMVMKC 3.5 MG/ML-10,000 UNIT/ML-0.1% EYE DROPS 10 mL 1 Si-2 drops 3-4 times a day as needed for external otitis LUZ MARIA: No Date of last office visit : 10/07/2021 Date of next office visit : 01/01/2022 Last 2 Encounter Wt Readings: Date: Wt: 10/07/2021 76.7 kg (169 lb) 04/01/2021 72.1 kg (159 lb) Please advise. Vanessa Hargrove Greyson Paredes documented in this encounterOhiohealth Nelsonville Health Center06-07-2022 Miscellaneous Notes* Telephone Encounter - Faheem Martinez LPN - 10/28/2021 2:43 PM EDT Please assist pt with scheduling follow up appt. Faheem Martinez LPN * Telephone Encounter - Mitzi Lyon LPN - 10/28/2021 10:42 AM EDT Attempted to reach pt. Mailbox full. Will try later. Mitzi Lyon LPN * Telephone Encounter - Mitzi Lyon LPN - 10/28/2021 9:16 AM EDT Attempted to reach pt but mailbox is full. Try later. Mitzi Lyon LPN * Telephone Encounter - Gayathri Rainey APRN.CNP - 10/27/2021 8:06 PM EDT New prescription is sent. It is okay for her to miss a few doses while she is waiting to slate picker the new prescription. Gayathri Rainey APRN.CNP * Telephone Encounter - Vanessa Paredes - 10/27/2021 1:55 PM EDT Patient spilled hot coffee on her medication and needs to have it filled 9 days before her next oneis actually due. Insurance is refusing to pay for it before the 9 days according to patient/pharmacy. Patient would like to know if this is a medication she can skip for a while. If not, she would likea new script called into the pharmacy on file as it is due to be renewed. * Telephone Encounter - Vanessa Paredes - 10/27/2021 1:53 PM EDT Pharmacy verified in [facility] Patient has been identified by name and [...] (159 lb) Not applicable Please advise. Vanessa Rubi Pss documented in this encounterOhiohealth Nelsonville Health Center05-17-2022 Instructions* Patient Instructions* Beena Whitfield PA-C - 10/07/2021 8:28 AM EDT [...] review all the medicines you take, even mewj-clb-sxkjmbk medicines. As you get older, the way medicines work in your body can change. Some medicines, or combinations of medicines, can make you sleepy or dizzy andcan cause you to fall. 3. Have your [...] contact: Centers for Disease Control and Prevention [phone] www.cdc.gov/injury * This information may not apply if you have certain medical conditions. documented in this encounterOhiohealth Nelsonville Health Center05-17-2022 History of Present illness Narrative* Beena Whitfield PA-C - 10/07/2021 8:00 AM EDT 76 year old female with c/o Welcome to Medicare Annual wellness Sade Rush is a 76 year old female [...] 2 Puffs as instructed every 4 hours asneeded. HYDROcodone-acetaminophen (NORCO) 5-325 mg per tablet Take 1 tablet by mouth every 6 hours as needed for pain. diphenoxylate-atropine (LOMOTIL) 2.5-0.025 mg per tablet Take 1 tablet by mouth four times daily asneeded for up to 60 days. sertraline (ZOLOFT) [...] She smokes 1.5 ppd for 20 years. Sade reports her alcohol use as never. Sadeis more or less sedentary occasionally exercising in [...] with the phone, transportation, shopping, preparing meals, housework,laundry, medications or managing money? No Has help [...] and concerns from family or care takers. [employer] Examiner Beneficiary Personalized Health Plan: Referral to specialist [...] hand pain, unspecified laterality Fibromyalgia Current medications: [place] 5/325mg Migraine with aura, not intractable, without [...] changes: No. Polyneuropathy associated with underlying disease (formerly [facility]) Stable Vit D Deficiency Takes Vit [...] (HCC) - ICD9: 250.60, 357.2, ICD10: E11.40 Controlled. [...] unspecified whether esophagitis present - ICD9: 530.81, ICD10:K21.9 - Discussed lifestyle modifications including losing weight, limiting caffeine, no meals three hours before sleep and head of bed elevation - MAGNESIUM BLD 13. Polyneuropathy associated with underlying disease (HCC) - ICD9: 357.4, ICD10: G63 stable 14. [...] months Beena Whitfield PA-C documented in this encounterOhiohealth Nelsonville Health Center04-21-2022 Miscellaneous Notes* Telephone Encounter - Miesha Bernal RN - 09/11/2021 11:45 AM EDT Pt called and is notified of providers results and instructions. Pt voices understanding. Miesha Bernal RN * Telephone Encounter - Kishore Weaver - 09/11/2021 11:38 AM EDT Unable to reach patient. Left VM to return call to office. Please read below and advise. Adrienne Rose MA. * Addendum Note - Beena Whitfield PA-C - 09/11/2021 11:34 AM EDT Addended by: Beena WHITFIELD on: 09/11/2021 11:34 AM Modules accepted: Orders * Telephone Encounter - Beena Whitfield PA-C - 09/11/2021 11:30 AM EDT She hasn't completed labs since November 2020. [...] times daily as needed. Beena Whitfield PA-C * Telephone Encounter - Kishore Weaver - 09/11/2021 11:25 AM EDT Pt. Notified. Patient requesting Prednisone & a cough suppressant as well. Patient states she feels she needs a boost to be able to shake cough. Declines OV at this time but states she will come in Wednesday if she's not better. Werner please review & advise. * Telephone Encounter - Beena Whitfield PA-C - 09/11/2021 11:00 AM EDT The following approved medication requests have been transmitted electronically. Signed Prescriptions Disp Refills SUMAtriptan (IMITREX) 100 mg tablet 4 tablet 0 Sig: Take 1 tablet by mouth as needed. LUZ MARIA: No Beena Whitfield PA-C * Telephone Encounter - Miesha Bernal RN - 09/11/2021 10:34 AM EDT Pt also report that when she started [...] Please advise. Thank you. Miesha Bernal RN * Telephone Encounter - Miesha Bernal RN - 09/11/2021 10:25 AM EDT Protocol recommends see provider in 4 hours. Pt reports she is not coming in, she wants provider toorder her prednisone and states if she is [...] reports it's not going to go away whenit settles in her chest. 3. SPUTUM: Pt [...] prefers to sit, cannot lie down flat, speaksin phrases, mild retractions, audible wheezing, pulse 100-120. - SEVERE: Very SOB at rest, speaks in single words, struggling to breathe, sitting hunched forward,retractions, pulse > 120 Pt reports her usual [...] or exposures. Protocols used: COUGH - ACUTE [id number] documented in this encounterOhiohealth Nelsonville Health Center04-08-2022 Miscellaneous Notes* Telephone Encounter - Francisca Lyon Pss - 08/29/2021 10:00 AM EDT Patient is stating that she is getting a headache and if she does not take she will get a migraine . Francisca Lyon Pss documented in this encounterOhiohealth Nelsonville Health Center02-10-2022 Miscellaneous Notes* Telephone Encounter - Miesha Bernal RN - 07/03/2021 9:58 AM EST Pt reports she is having a bad day it took her a long time to get into the car, but they are on theway and will be here. Miesha Bernal RN documented in this encounterOhiohealth Nelsonville Health CenterEvalunem[facility] [place] [facility]* Diagnosis Migraine with aura, not intractable, without status migrainosus documented in this encounter [facility] CenterEvalun[facility] [place] [facility]* Diagnosis Migraine with aura, not intractable, without status migrainosus documented in this encounter [facility] CenterEvalun[facility] [place] [facility]* Diagnosis Essential hypertension- Primary Unspecified essential hypertension Mixed hyperlipidemia Type 2 diabetes mellitus with diabetic neuropathy, without long-term current use of insulin ([facility]) Myasthenia gravis (HCC) Myasthenia gravis without exacerbation Anxiety with depression Chronic diarrhea Diarrhea Chronic asthmatic bronchitis (HCC) Chronic obstructive asthma, unspecified Chronic pain of both shoulders Pain in joint, shoulder region Chronic hand pain, unspecified laterality Fibromyalgia Mylagia and myositis, unspecified Migraine with aura, not intractable, without status migrainosus Gastroesophageal reflux disease, unspecified whether esophagitis present Polyneuropathy associated with underlying disease ([facility]) Medicare annual wellness visit, subsequent Routine general medical examination at a health care facility Other allergic rhinitis Vitamin D deficiency Unspecified vitamin D deficiency Allergic conjunctivitis of both eyes Other chronic allergic conjunctivitis Abnormality of gait Falling episodes Lack of coordination Need for COVID-19 vaccine documented in this encounter [facility] CenterEvalun[facility] [place] [facility]* Diagnosis Chronic asthmatic bronchitis (HCC) Chronic obstructive asthma, unspecified documented in this encounter [facility] CenterEval[facility] [place] [facility]* Diagnosis Migraine with aura, not intractable, without status migrainosus Anxiety with depression Anxiety Anxiety state, unspecified documented in this encounter [facility] CenterEval[facility] [place] [facility]* Diagnosis Nausea Nausea alone documented in this encounter [facility] CenterEval[facility] [place] [facility]* Diagnosis Encounter for screening mammogram for breast cancer documented in this encounter [facility] CenterEval[facility] [place] [facility]* Diagnosis Essential hypertension- Primary Unspecified essential [...] partial remission (HCC) documented in this encounter [facility] CenterEval[facility] [place] [facility]* Diagnosis Chronic diarrhea Diarrhea documented in this encounter [facility]Eval[facility] [place] [facility]* Diagnosis Essential hypertension- Primary Unspecified essential [...] obstructive asthma, unspecified documented in this encounter [facility] CenterEval[facility] [place] [facility]* Diagnosis Migraine with aura, not intractable, without status migrainosus documented in this encounter [facility]Eval[facility] [place] [facility]* Diagnosis Chronic asthmatic bronchitis (HCC) Chronic obstructive asthma, unspecified documented in this encounter [facility] CenterEval[facility] [place] [facility]* Diagnosis Nausea Nausea alone documented in this encounter [facility]Eval[facility] [place] [facility]* Diagnosis Type 2 diabetes mellitus with diabetic neuropathy, without long-term current use of insulin (HCC)- Primary Anxiety with depression Anxiety Anxiety state, unspecified Chronic diarrhea Diarrhea Chronic pain of both shoulders Pain in joint, shoulder region Chronic hand pain, unspecified laterality Myasthenia gravis (HCC) Myasthenia gravis without exacerbation documented in this encounter [facility]Eval[facility] [place] [facility]* Diagnosis Essential hypertension Unspecified essential hypertension Migraine with aura, not intractable, without status migrainosus documented in this encounter [facility] CenterEvaluation note* Diagnosis Essential hypertension- Primary Unspecified essential [...] Recurrent major depressive disorder, in partial remission ([facility]) Anxiety with depression Migraine with aura, not intractable, without status migrainosus Chronic pain of both shoulders Pain in joint, shoulder region Chronic hand pain, unspecified laterality documented in this encounter [facility]Eval[facility] [place] [facility]* Diagnosis Essential hypertension- Primary Unspecified essential [...] Recurrent major depressive disorder, in partial remission ([facility]) documented in this encounter [facility]Eval[facility] [place] [facility]* Diagnosis Essential hypertension- Primary Unspecified essential [...] Asymptomatic postmenopausal status documented in this encounter [facility]Eval[facility] [place] [facility]* Diagnosis Type 2 diabetes mellitus without retinopathy (HCC)- Primary Type II or unspecified type diabetes mellitus without mention of complication, not stated as uncontrolled Myasthenia gravis (HCC) Myasthenia gravis without exacerbation Combined forms of age-related cataract of both eyes Other and combined forms of senile cataract Dry eye syndrome of both eyes documented in this encounter [facility] CenterEval[facility] [place] [facility]* Diagnosis Anxiety Anxiety state, unspecified Anxiety with depression documented in this encounter [facility] CenterEval[facility] [place] [facility]* Diagnosis Asymptomatic postmenopausal status documented in this encounter [facility]Eval[facility] [place] [facility]* Diagnosis Encounter for immunization- Primary Need [...] Fatigue, unspecified type documented in this encounter [facility] [place] [facility]* Diagnosis Myasthenia gravis (HCC)- Primary Myasthenia gravis without exacerbation documented in this encounter [facility]Eval[facility] [place] [facility]* Diagnosis Chronic asthmatic bronchitis (HCC) Chronic obstructive asthma, unspecified documented in this encounter [facility] CenterEvalunem[facility] [place] noteNo assessment information availableWThe Christ Hospital Work Phone: Reason for referral (narrative)* Diagnostic Procedure Only (Routine) - Pending Review Specialty Diagnoses / Procedures Referred By Denny t Referred To Contact [facility] Diagnoses Encounter for screening mammogram for breast cancer Procedures EBONY SCREENING SCREENING MAMMOGRAPHY BI 2-VIEW BREAST INC CAD Beena Whitfield PA-C [address] [place] [address] [facility] [place] [address] Referral ID Status Reason Start Date Expiration Date Visits Requested Visits Authorized [id number] Pending Review Auto-Generat ed Referral 11/26/2021 12/26/2022 1 1 [facility] for referral (narrative)No reason for referral information availableWThe Christ Hospital Work Phone: Reason for Referral Specialty Diagnoses / Procedures Referred By Contac t Referred To Contact Beena Whitfield PA-C [address] [place] [address] Referral ID Status Reason Start Date Expiration Date V isits Requested Visits Authorized [id number] Authorized 09/07/2021 10/06/2024 1 1 Specialty Diagnoses / Procedures Referred By Contac t Referred To Contact Diagnoses Felicita Garcia APRN.CNP [address] [place] [address] Referral ID Status Reason Start Date Expiration Date Visits Re quested Visits Authorized [id number] Closed 1 1 Referral ID Status Reason Start Date Expiration Date Visits Re quested Visits Authorized [id number] Closed 1 1 Specialty Diagnoses / Procedures Referred By Contac t Referred To Contact Diagnoses Beena Genao PA-C [address] [place] [address] Referral ID Status Reason Start Date Expiration Date Visits Re quested Visits Authorized [id number] Closed 1 1 Referral ID Status Reason Start Date Expiration Date V isits Requested Visits Authorized [id number] Pending Review 1 1 Medications Administered Section Active Administered Medications - up to 3 most recent administrations Medication Order MAR Action Action Date Dose Rate Site PHENYLephrine 2.5 % 1 Drop (AK-DILATE, JEFFREY-SYNEPHRINE) 1 Drop, BOTH EYES, DIRECTED, Starting on Wed03/10/23 at 1430, Until Tnia 03/11/23 at 0229, Administer for dilation PROTECT FROM LIGHT Given 03/10/2023 2:24 PM EDT 1 Drop proparacaine 0.5 % 1 Drop (ALCAINE) 1 Drop, BOTH EYES, DIRECTED, Starting on Wed03/10/23 at 1430, Until Tina 03/11/23 at 0229, Administer for pneumo tonometry, tonopen [...] Unknown Advance Directives No Advanced Directives Records Found Advance Directive Response Recorded Date/ Time Do you have a Healthcare Power of Candy Spreader Helper? Yes January 08, 2025 1:18pm Chief Complaint and Reason for Visit Chief Complaint Admit Date INTERMEDIATE LAB WORK May 16 5:00am Chief Complaint Admit Date INTERMEDIATE LAB WORK May 16 5:00am INTERMEDIATE LAB WORK September 12, 2024 4 :00am Chief Complaint Admit Date INTERMEDIATE LAB WORK August 29, 2024 5: 00am INTERMEDIATE LAB WORK September 12, 2024 4 :00am Chief Complaint Admit Date INTERMEDIATE LAB WORK September 12, 2024 4 :00am ACUTE ON CHRONIC ANEMIA DUE TO GI BLEED January 08, 2025 12:08pm Chief Complaint Admit Date INTERMEDIATE LAB WORK September 12, 2024 4 :00am ACUTE ON CHRONIC ANEMIA DUE TO GI BLEED January 08, 2025 12:08pm ACUTE ON CHRONIC ANEMIA DUE TO GI BLEED January 08, 2025 5:37pm ACUTE ON CHRONIC ANEMIA DUE TO GI BLEED January 09, 2025 10:11am ACUTE ON CHRONIC ANEMIA DUE TO GI BLEED January 10, 2025 12:08pm Reason for Visit Admit Date Acute anemia January 08, 2025 12 :08pm GI bleed January 08, 2025 12 :08pm Additional Source Comments Source Comments (unrecognize d section and content) In the event this informatio n is protected by the Federal Confidentiality of Alcohol and Drug Abuse Patient Records regulations: The Federal rules restrict any use of the information to criminally investigate or prosecute any alcohol or drug abuse patient.[facility] CenterIn the event this information is protected by the Federal Confidentiality of Alcohol and Drug Abuse Patient Records regulations: The Federal rules restrict any use of the information to criminally investigate or prosecute any alcohol or drug abuse patient.[facility] CenterIn the event this information is protected by the Federal Confidentiality of Alcohol and Drug Abuse Patient Records regulations: The Federal rules restrict any use of the information to criminally investigate or prosecute any alcohol or drug abuse patient.[facility] CenterIn the event this information is protected by the Federal Confidentiality of Alcohol and Drug Abuse Patient Records regulations: The Federal rules restrict any use of the information to criminally investigate or prosecute any alcohol or drug abuse patient.[facility] CenterIn the event this information is protected by the Federal Confidentiality of Alcohol and Drug Abuse Patient Records regulations: The Federal rules restrict any use of the information to criminally investigate or prosecute any alcohol or drug abuse patient.[facility] CenterIn the event this information is protected by the Federal Confidentiality of Alcohol and Drug Abuse Patient Records regulations: The Federal rules restrict any use of the information to criminally investigate or prosecute any alcohol or drug abuse patient.[facility] CenterIn the event this information is protected by the Federal Confidentiality of Alcohol and Drug Abuse Patient Records regulations: The Federal rules restrict any use of the information to criminally investigate or prosecute any alcohol or drug abuse patient.[facility] CenterIn the event this information is protected by the Federal Confidentiality of Alcohol and Drug Abuse Patient Records regulations: The Federal rules restrict any use of the information to criminally investigate or prosecute any alcohol or drug abuse patient.[facility] CenterIn the event this information is protected by the Federal Confidentiality of Alcohol and Drug Abuse Patient Records regulations: The Federal rules restrict any use of the information to criminally investigate or prosecute any alcohol or drug abuse patient.[facility] CenterIn the event this information is protected by the Federal Confidentiality of Alcohol and Drug Abuse Patient Records regulations: The Federal rules restrict any use of the information to criminally investigate or prosecute any alcohol or drug abuse patient.[facility] CenterIn the event this information is protected by the Federal Confidentiality of Alcohol and Drug Abuse Patient Records regulations: The Federal rules restrict any use of the information to criminally investigate or prosecute any alcohol or drug abuse patient.[facility] CenterIn the event this information is protected by the Federal Confidentiality of Alcohol and Drug Abuse Patient Records regulations: The Federal rules restrict any use of the information to criminally investigate or prosecute any alcohol or drug abuse patient.[facility] CenterIn the event this information is protected by the Federal Confidentiality of Alcohol and Drug Abuse Patient Records regulations: The Federal rules restrict any use of the information to criminally investigate or prosecute any alcohol or drug abuse patient.[facility] CenterIn the event this information is protected by the Federal Confidentiality of Alcohol and Drug Abuse Patient Records regulations: The Federal rules restrict any use of the information to criminally investigate or prosecute any alcohol or drug abuse patient.[facility] CenterIn the event this information is protected by the Federal Confidentiality of Alcohol and Drug Abuse Patient Records regulations: The Federal rules restrict any use of the information to criminally investigate or prosecute any alcohol or drug abuse patient.[facility] CenterIn the event this information is protected by the Federal Confidentiality of Alcohol and Drug Abuse Patient Records regulations: The Federal rules restrict any use of the information to criminally investigate or prosecute any alcohol or drug abuse patient.[facility] CenterIn the event this information is protected by the Federal Confidentiality of Alcohol and Drug Abuse Patient Records regulations: The Federal rules restrict any use of the information to criminally investigate or prosecute any alcohol or drug abuse patient.[facility] CenterIn the event this information is protected by the Federal Confidentiality of Alcohol and Drug Abuse Patient Records regulations: The Federal rules restrict any use of the information to criminally investigate or prosecute any alcohol or drug abuse patient.[facility] CenterIn the event this information is protected by the Federal Confidentiality of Alcohol and Drug Abuse Patient Records regulations: The Federal rules restrict any use of the information to criminally investigate or prosecute any alcohol or drug abuse patient.[facility] CenterIn the event this information is protected by the Federal Confidentiality of Alcohol and Drug Abuse Patient Records regulations: The Federal rules restrict any use of the information to criminally investigate or prosecute any alcohol or drug abuse patient.[facility] CenterIn the event this information is protected by the Federal Confidentiality of Alcohol and Drug Abuse Patient Records regulations: The Federal rules restrict any use of the information to criminally investigate or prosecute any alcohol or drug abuse patient.[facility] CenterIn the event this information is protected by the Federal Confidentiality of Alcohol and Drug Abuse Patient Records regulations: The Federal rules restrict any use of the information to criminally investigate or prosecute any alcohol or drug abuse patient.[facility] CenterIn the event this information is protected by the Federal Confidentiality of Alcohol and Drug Abuse Patient Records regulations: The Federal rules restrict any use of the information to criminally investigate or prosecute any alcohol or drug abuse patient.[facility] CenterIn the event this information is protected by the Federal Confidentiality of Alcohol and Drug Abuse Patient Records regulations: The Federal rules restrict any use of the information to criminally investigate or prosecute any alcohol or drug abuse patient.[facility] CenterIn the event this information is protected by the Federal Confidentiality of Alcohol and Drug Abuse Patient Records regulations: The Federal rules restrict any use of the information to criminally investigate or prosecute any alcohol or drug abuse patient.[facility] CenterIn the event this information is protected by the Federal Confidentiality of Alcohol and Drug Abuse Patient Records regulations: The Federal rules restrict any use of the information to criminally investigate or prosecute any alcohol or drug abuse patient.[facility] CenterIn the event this information is protected by the Federal Confidentiality of Alcohol and Drug Abuse Patient Records regulations: The Federal rules restrict any use of the information to criminally investigate or prosecute any alcohol or drug abuse patient.[facility] CenterIn the event this information is protected by the Federal Confidentiality of Alcohol and Drug Abuse Patient Records regulations: The Federal rules restrict any use of the information to criminally investigate or prosecute any alcohol or drug abuse patient.[facility] CenterIn the event this information is protected by the Federal Confidentiality of Alcohol and Drug Abuse Patient Records regulations: The Federal rules restrict any use of the information to criminally investigate or prosecute any alcohol or drug abuse patient.[facility] CenterIn the event this information is protected by the Federal Confidentiality of Alcohol and Drug Abuse Patient Records regulations: The Federal rules restrict any use of the information to criminally investigate or prosecute any alcohol or drug abuse patient.[facility] CenterIn the event this information is protected by the Federal Confidentiality of Alcohol and Drug Abuse Patient Records regulations: The Federal rules restrict any use of the information to criminally investigate or prosecute any alcohol or drug abuse patient.[facility] CenterIn the event this information is protected by the Federal Confidentiality of Alcohol and Drug Abuse Patient Records regulations: The Federal rules restrict any use of the information to criminally investigate or prosecute any alcohol or drug abuse patient.[facility] CenterIn the event this information is protected by the Federal Confidentiality of Alcohol and Drug Abuse Patient Records regulations: The Federal rules restrict any use of the information to criminally investigate or prosecute any alcohol or drug abuse patient.[facility] CenterIn the event this information is protected by the Federal Confidentiality of Alcohol and Drug Abuse Patient Records regulations: The Federal rules restrict any use of the information to criminally investigate or prosecute any alcohol or drug abuse patient.[facility] CenterIn the event this information is protected by the Federal Confidentiality of Alcohol and Drug Abuse Patient Records regulations: The Federal rules restrict any use of the information to criminally investigate or prosecute any alcohol or drug abuse patient.[facility] CenterIn the event this information is protected by the Federal Confidentiality of Alcohol and Drug Abuse Patient Records regulations: The Federal rules restrict any use of the information to criminally investigate or prosecute any alcohol or drug abuse patient.[facility] CenterIn the event this information is protected by the Federal Confidentiality of Alcohol and Drug Abuse Patient Records regulations: The Federal rules restrict any use of the information to criminally investigate or prosecute any alcohol or drug abuse patient.[facility] CenterIn the event this information is protected by the Federal Confidentiality of Alcohol and Drug Abuse Patient Records regulations: The Federal rules restrict any use of the information to criminally investigate or prosecute any alcohol or drug abuse patient.[facility] CenterIn the event this information is protected by the Federal Confidentiality of Alcohol and Drug Abuse Patient Records regulations: The Federal rules restrict any use of the information to criminally investigate or prosecute any alcohol or drug abuse patient.[facility] CenterIn the event this information is protected by the Federal Confidentiality of Alcohol and Drug Abuse Patient Records regulations: The Federal rules restrict any use of the information to criminally investigate or prosecute any alcohol or drug abuse patient.[facility] CenterIn the event this information is protected by the Federal Confidentiality of Alcohol and Drug Abuse Patient Records regulations: The Federal rules restrict any use of the information to criminally investigate or prosecute any alcohol or drug abuse patient.[facility] CenterIn the event this information is protected by the Federal Confidentiality of Alcohol and Drug Abuse Patient Records regulations: The Federal rules restrict any use of the information to criminally investigate or prosecute any alcohol or drug abuse patient.[facility] Reason for Visit (unrecogniz ed section and [...] Care Teams (unrecognized sec tion and content) Business Intelligence Etl Developer Relationship Specialty Start Date End Date Beena Whitfield PA-C [address] [place] [address] PCP - General Family Practice 11/03/18 Business Intelligence Etl Developer Relationship Specialty Start Date End Date Beena Whitfield PA-C [address] [place] [address] PCP - General Family Practice 11/03/18 Business Intelligence Etl Developer Relationship Specialty Start Date End Date Beena Whitfield PA-C [address] [place] [address] PCP - General Family Practice 11/03/18 Business Intelligence Etl Developer Relationship Specialty Start Date End Date Beena Whitfield PA-C [address] [place] [address] PCP - General Family Practice 11/03/18 Business Intelligence Etl Developer Relationship Specialty Start Date End Date Beena Whitfield PA-C [address] [facility] [place] [address] PCP - General Family Practice 11/03/18 Business Intelligence Etl Developer Relationship Specialty Start Date End Date Beena Whitfield PA-C [address] [facility] [place] [address] PCP - General Family Practice 11/03/18 Business Intelligence Etl Developer Relationship Specialty Start Date End Date Beena Whitfield PA-C [address] [facility] [place] [address] PCP - General Family Practice 11/03/18 Business Intelligence Etl Developer Relationship Specialty Start Date End Date Beena Whitfield PA-C [address] [place] [place] [address] PCP - General Family Practice 11/03/18 Business Intelligence Etl Developer Relationship Specialty Start Date End Date Beena Whitfield PA-C [address] [facility] [place] [address] PCP - General Family Practice 11/03/18 Business Intelligence Etl Developer Relationship Specialty Start Date End Date Beena Whitfield PA-C [address] [facility] [place] [address] PCP - General Family Medicine 11/03/18 Business Intelligence Etl Developer Relationship Specialty Start Date End Date Beena Whitfield PA-C [address] [facility] [place] [address] PCP - General Family Medicine 11/03/18 Business Intelligence Etl Developer Relationship Specialty Start Date End Date Beena Whitfield PA-C [address] [place] [place] [address] PCP - General Family Medicine 11/03/18 Business Intelligence Etl Developer Relationship Specialty Start Date End Date Beena Whitfield PA-C [address] [place] [place] [address] PCP - General Family Medicine 11/03/18 Business Intelligence Etl Developer Relationship Specialty Start Date End Date Beena Whitfield PA-C [address] [place] [place] [address] PCP - General Family Medicine 11/03/18 Business Intelligence Etl Developer Relationship Specialty Start Date End Date Beena Whitfield PA-C [address] [place] [place] [address] PCP - General Family Medicine 11/03/18 Business Intelligence Etl Developer Relationship Specialty Start Date End Date Beena Whitfield PA-C [address] [place] [place] [address] PCP - General Family Medicine 11/03/18 Business Intelligence Etl Developer Relationship Specialty Start Date End Date Beena Whitfield PA-C [address] [place] [address] PCP - General Family Medicine 11/03/18 Business Intelligence Etl Developer Relationship Specialty Start Date End Date Beena Whitfield PA-C [address] [place] [place] [address] PCP - General Family Medicine 11/03/18 Business Intelligence Etl Developer Relationship Specialty Start Date End Date Beena Whitfield PA-C [address] [place] [address] PCP - General Family Medicine 11/03/18 Business Intelligence Etl Developer Relationship Specialty Start Date End Date Beena Whitfield PA-C [address] [place] [address] PCP - General Family Medicine 11/03/18 Business Intelligence Etl Developer Relationship Specialty Start Date End Date Beena Whitfield PA-C [address] [place] [address] PCP - General Family Medicine 11/03/18 Business Intelligence Etl Developer Relationship Specialty Start Date End Date Beena Whitfield PA-C [address] [place] [address] PCP - General Family Medicine 11/03/18 Business Intelligence Etl Developer Relationship Specialty Start Date End Date Beena Whitfield PA-C [address] [place] [address] PCP - General Family Medicine 11/03/18 Business Intelligence Etl Developer Relationship Specialty Start Date End Date Beena Whitfield PA-C [address] [place] [address] PCP - General Family Medicine 11/03/18 Business Intelligence Etl Developer Relationship Specialty Start Date End Date Beena Whitfield PA-C [address] [place] [address] PCP - General Family Medicine 11/03/18 Business Intelligence Etl Developer Relationship Specialty Start Date End Date Beena Whitfield PA-C [address] [place] [address] PCP - General Family Medicine 11/03/18 Business Intelligence Etl Developer Relationship Specialty Start Date End Date Beena Whitfield PA-C [address] [place] [address] PCP - General Family Medicine 11/03/18 Business Intelligence Etl Developer Relationship Specialty Start Date End Date Beena Whitfield PA-C [address] [place] [address] PCP - General Family Medicine 11/03/18 Business Intelligence Etl Developer Relationship Specialty Start Date End Date Beena Whitfield PA-C [address] [place] [address] PCP - General Family Medicine 11/03/18 Business Intelligence Etl Developer Relationship Specialty Start Date End Date Beena Whitfield PA-C [address] [place] [address] PCP - General Family Medicine 11/03/18 Business Intelligence Etl Developer Relationship Specialty Start Date End Date Beena Whitfield PA-C [address] [place], [place] [address] PCP - General Family Medicine 11/03/18 Team Status: Active Member Role Status Dates Dr. Mynor Hampton MD Family Provider Active DAT Juan Primary Care Provider Active Team Status: Active Member Role Status Dates DAT Juan Primary Care Provider Active Start: May 16, 2024 Ishaan CURTIS MD Attending Provider Active Start: May 16, 2024 Team Status: Inactive Member Role Status Dates DAT Juan Primary Care Provider Active Start: August 14, 2024 End: August 14, 2024 Ishaan CURTIS MD Attending Provider Active Start: August 14, 2024 End: August 14, 2024 Team Status: Active Member Role Status Dates DAT uJan Primary Care Provider Active Start: August 29, 2024 Ishaan CURTIS MD Attending Provider Active Start: August 29, 2024 Team Status: Inactive Member Role Status Dates DAT Juan Primary Care Provider Active Start: September 12, 2024 End: September 12, 2024 Ishaan CURTIS MD Attending Provider Active Start: September 12, 2024 End: September 12, 2024 Ishaan CURTIS MD Referring Provider Active Start: September 12, 2024 End: September 12, 2024 Team Status: Inactive Member Role Status Dates DAT Juan Primary Care Provider Active Start: August 29, 2024 End: August 29, 2024 Ishaan CURTIS MD Attending Provider Active Start: August 29, 2024 End: August 29, 2024 Team Status: Active Member Role/Relationship Status Dates Dr. Mynor Hampton MD Family Provider Active M Kerri Whitfield PA, PA Primary Care Provider Active Team Status: Inactive Member Role/Relationship Status Dates M Kerri Whitfield PA, PA Primary Care Provider Active Start: August 29, 2024 End: August 29, 2024 Ishaan CURTIS MD Attending Provider Active Start: August 29, 2024 End: August 29, 2024 Team Status: Inactive Member Role/Relationship Status Dates M Kerri Whitfield PA, PA Primary Care Provider Active Start: September 12, 2024 End: September 12, 2024 Ishaan CURTIS MD Attending Provider Active Start: September 12, 2024 End: September 12, 2024 Ishaan CURTIS MD Referring Provider Active Start: September 12, 2024 End: September 12, 2024 Team Status: Inactive Member Role/Relationship Status Dates M Kerri Whitfiedl PA, PA Primary Care Provider Active Start: November 15, 2024 End: November 15, 2024 Ishaan CURTIS MD Attending Provider Active Start: November 15, 2024 End: November 15, 2024 Team Status: Active Member Role/Relationship Status Dates Dr. Ishaan Bernabe MD Primary Care Provider Active Team Status: Inactive Member Role/Relationship Status Dates M Kerri Whitfield PA, PA Primary Care Provider Active Start: September 12, 2024 End: September 12, 2024 Ishaan CURTIS MD Attending Provider Active Start: September 12, 2024 End: September 12, 2024 Ishaan CURTIS MD Referring Provider Active Start: September 12, 2024 End: September 12, 2024 Team Status: Inactive Member Role/Relationship Status Dates M Kerri Whitfield PA, PA Primary Care Provider Active Start: November 15, 2024 End: November 15, 2024 Ishaan CURTIS MD Attending Provider Active Start: November 15, 2024 End: November 15, 2024 Team Status: Active Member Role/Relationship Status Dates M Kerri Whitfield PA, PA Primary Care Provider Active Start: January 08, 2025 Ishaan CURTIS MD Attending Provider Active Start: January 08, 2025 Team Status: Active Member Role/Relationship Status Dates Dr. Xuan Mcdaniels MD Emergency Provider Active S tart: January 08, 2025 Dr. Ishaan Bernabe MD Primary Care Provider Active Start: January 08, 2025 Dr. Katy De La Rosa MD Admit Provider Active St art: January 08, 2025 Dr. Katy De La Rosa MD Attending Provider Active Start: January 08, 2025 Team Status: Inactive Member Role/Relationship Status Dates Dr. Xuan Mcdaniels MD Emergency Provider Active S tart: January 08, 2025 End: January 10, 2025 Dr. Ishaan Bernabe MD Primary Care Provider Active Start: January 08, 2025 End: January 10, 2025 Dr. Katy De La Rosa MD Admit Provider Active St art: January 08, 2025 End: January 10, 2025 Dr. Katy De La Rosa MD Attending Provider Active Start: January 08, 2025 End: January 10, 2025 Dr. Eric López MD Other Provider Active Start: January 08, 2025 End: January 10, 2025 Dr. Cortez Ramos MD Other Provider Active Start: January 08, 2025 End: January 10, 2025 Dr. Adan Rosa MD Other Provider Active Star t: January 08, 2025 End: January 10, 2025 Dr. Nicholas Graham DO Other Provider Active Start : January 08, 2025 End: January 10, 2025 Dr. Jesus Clemens MD Other Provider Active Sta rt: January 08, 2025 End: January 10, 2025 Dr. Bishop Wheeler MD Other Provider Active St art: January 08, 2025 End: January 10, 2025 Dr. Aidan Arteaga MD Other Provider Active S tart: January 08, 2025 End: January 10, 2025 Dr. Lashawn Pierce MD Other Provider Active Start: January 08, 2025 End: January 10, 2025 Dr. Sina Duarte MD Other Provider Active Start : January 08, 2025 End: January 10, 2025 Dr. Fidel Benoit MD Other Provider Active Start: January 08, 2025 End: January 10, 2025 Dr. Zeb Dubose MD Other Provider Active Start : January 08, 2025 End: January 10, 2025 Dr. Linnea Valentino MD Other Provider Active Star t: January 08, 2025 End: January 10, 2025 Dr. Sinai Gurrola MD Other Provider Active Sta rt: January 08, 2025 End: January 10, 2025 Dr. Eliza Ha MD Other Provider Active Sta rt: January 08, 2025 End: January 10, 2025 Dr. Joseph Taylor MD Other Provider Active Star t: January 08, 2025 End: January 10, 2025 Dr. Red Lyles MD Other Provider Active St art: January 08, 2025 End: January 10, 2025 Dr. Marquise Montano MD Other Provider Active Star t: January 08, 2025 End: January 10, 2025 Dr. Christiano Palmer DO Other Provider Active St art: January 08, 2025 End: January 10, 2025 Dr. Nayla aMys MD Other Provider Active Start: January 08, 2025 End: January 10, 2025 Dr. Ghada Meyers MD Other Provider Active St art: January 08, 2025 End: January 10, 2025 Dr. Joseph Montiel DO Other Provider Active Start: January 08, 2025 End: January 10, 2025 Dr. Moses Turner MD Other Provider Active Star t: January 08, 2025 End: January 10, 2025 Dr. Mynor Fields MD Other Provider Active Sta rt: January 08, 2025 End: January 10, 2025 Dr. Mynor Fields MD Other Provider Active Sta rt: January 08, 2025 Team Status: Active Member Role/Relationship Status Dates Dr. Xuan Mcdaniels MD Emergency Provider Active S tart: January 08, 2025 Dr. Ishaan Bernabe MD Primary Care Provider Active Start: January 08, 2025 Dr. Katy De La Rosa MD Admit Provider Active St art: January 08, 2025 Dr. Katy De La Rosa MD Other Provider Active St art: January 08, 2025 Dr. Eric López MD Other Provider Active Start: January 08, 2025 Dr. Cortez Ramos MD Other Provider Active Start: January 08, 2025 Dr. Adan Rosa MD Other Provider Active Star t: January 08, 2025 Dr. Nicholas Graham DO Other Provider Active Start : January 08, 2025 Dr. Jesus Clemens MD Other Provider Active Sta rt: January 08, 2025 Dr. Bishop Wheeler MD Other Provider Active St art: January 08, 2025 Dr. Aidan Arteaga MD Other Provider Active S tart: January 08, 2025 Dr. Lashawn Pierce MD Other Provider Active Start: January 08, 2025 Dr. Sina Duarte MD Other Provider Active Start : January 08, 2025 Dr. Fidel Benoit MD Other Provider Active Start: January 08, 2025 Dr. Zeb Dubose MD Other Provider Active Start : January 08, 2025 Dr. Linnea Valentino MD Other Provider Active Star t: January 08, 2025 Dr. Sinai Gurrola MD Other Provider Active Sta rt: January 08, 2025 Dr. Eliza Ha MD Other Provider Active Sta rt: January 08, 2025 Dr. Joseph Taylor MD Other Provider Active Star t: January 08, 2025 Dr. Red Lyles MD Other Provider Active St art: January 08, 2025 Dr. Marquise Montano MD Other Provider Active Star t: January 08, 2025 Dr. Christiano Palmer DO Other Provider Active St art: January 08, 2025 Dr. Nayla Mays MD Other Provider Active Start: January 08, 2025 Dr. Ghada Meyers MD Other Provider Active St art: January 08, 2025 Dr. Joseph Montiel DO Other Provider Active Start: January 08, 2025 Dr. Moses Turner MD Other Provider Active Star t: January 08, 2025 Dr. Mynor Fields MD Other Provider Active Sta rt: January 08, 2025 Dr. Brennen Foy DO Attending Provider Active Start: January 08, 2025 Team Status: Active Member Role/Relationship Status Dates Dr. Xuan Mcdaniels MD Emergency Provider Active S tart: January 09, 2025 Dr. Ishaan Bernabe MD Primary Care Provider Active Start: January 09, 2025 Dr. Katy De La Rosa MD Admit Provider Active St art: January 09, 2025 Dr. Katy De La Rosa MD Attending Provider Active Start: January 09, 2025 Dr. Katy De La Rosa MD Other Provider Active St art: January 09, 2025 Dr. Eric López MD Other Provider Active Start: January 09, 2025 Dr. Cortez Ramos MD Other Provider Active Start: January 09, 2025 Dr. Adan Rosa MD Other Provider Active Star t: January 09, 2025 Dr. Nicholas Graham , Other Provider Active Start : January 09, 2025 Dr. Jesus Clemens MD Other Provider Active Sta rt: January 09, 2025 Dr. Bihsop Wheeler MD Other Provider Active St art: January 09, 2025 Dr. Aidan Arteaga MD Other Provider Active S tart: January 09, 2025 Dr. Lashawn Pierce MD Other Provider Active Start: January 09, 2025 Dr. Sina Duarte MD Other Provider Active Start : January 09, 2025 Dr. Fidel Benoit MD Other Provider Active Start: January 09, 2025 Dr. Zeb Dubose MD Other Provider Active Start : January 09, 2025 Dr. Linnea Valentino MD Other Provider Active Star t: January 09, 2025 Dr. Sinai Gurrola MD Other Provider Active Sta rt: January 09, 2025 Dr. Eliza Ha MD Other Provider Active Sta rt: January 09, 2025 Dr. Joseph Taylor MD Other Provider Active Star t: January 09, 2025 Dr. Red Lyles MD Other Provider Active St art: January 09, 2025 Dr. Marquise Montano MD Other Provider Active Star t: January 09, 2025 Dr. Christiano Palmer DO Other Provider Active St art: January 09, 2025 Dr. Nayla Mays MD Other Provider Active Start: January 09, 2025 Dr. Ghada Meyers MD Other Provider Active St art: January 09, 2025 Dr. Joseph Montiel DO Other Provider Active Start: January 09, 2025 Dr. Moses Turner MD Other Provider Active Star t: January 09, 2025 Dr. Mynor Fields MD Other Provider Active Sta rt: January 09, 2025 Team Status: Active Member Role/Relationship Status Dates Dr. Xuan Mcdaniels MD Emergency Provider Active S tart: January 10, 2025 Dr. Ishaan Bernabe MD Primary Care Provider Active Start: January 10, 2025 Dr. Katy De La Rosa MD Admit Provider Active St art: January 10, 2025 Dr. Katy De La Rosa MD Attending Provider Active Start: January 10, 2025 Dr. Katy De La Rosa MD Other Provider Active St art: January 10, 2025 Dr. Eric López MD Other Provider Active Start: January 10, 2025 Dr. Cortez Ramos MD Other Provider Active Start: January 10, 2025 Dr. Adan Rosa MD Other Provider Active Star t: January 10, 2025 Dr. Nicholas Graham DO Other Provider Active Start : January 10, 2025 Dr. Jesus Clemens MD Other Provider Active Sta rt: January 10, 2025 Dr. Bishop Wheeler MD Other Provider Active St art: January 10, 2025 Dr. Aidan Arteaga MD Other Provider Active S tart: January 10, 2025 Dr. Lashawn Pierce MD Other Provider Active Start: January 10, 2025 Dr. Sina Duarte MD Other Provider Active Start : January 10, 2025 Dr. Fidel Benoit MD Other Provider Active Start: January 10, 2025 Dr. Zeb Dubose MD Other Provider Active Start : January 10, 2025 Dr. Linnea Valentino MD Other Provider Active Star t: January 10, 2025 Dr. Sinai Gurrola MD Other Provider Active Sta rt: January 10, 2025 Dr. Eliza Ha MD Other Provider Active Sta rt: January 10, 2025 Dr. Joseph Taylor MD Other Provider Active Star t: January 10, 2025 Dr. Red Lyles MD Other Provider Active St art: January 10, 2025 Dr. Marquise Montano MD Other Provider Active Star t: January 10, 2025 Dr. Christiano Palmer DO Other Provider Active St art: January 10, 2025 Dr. Nayla Mays MD Other Provider Active Start: January 10, 2025 Dr. Ghada Meyers MD Other Provider Active St art: January 10, 2025 Dr. Joseph Montiel DO Other Provider Active Start: January 10, 2025 Dr. Moses Turner MD Other Provider Active Star t: January 10, 2025 Dr. Mynor Fields MD Other Provider Active Sta rt: January 10, 2025 INFORMATION SOURCE (unrecogn ized section and content) DATE CREATED AUTHOR 10/20/2023 [facility] DATE CREATED AUTHOR AUTHOR'S TOMAS ATSEAN 03/24/2025 [facility] Goals (unrecognized section and content) Goals [...] BE BASED ON THE PRIMARY CLINICAL RECORDS. [employer] provides no warranty or guarantee of the accuracy or completeness of information in this document.
[2025-04-16 08:30] LABS: Hematocrit 31.5 % (37-47); Hemoglobin 9.4 g/dL (12.0-15.0); Mean Corp Hgb Conc 29.8 g/dL (32-36); Mean Corpuscular Volume 79.5 fL (81-99); Mean Platelet Vol. 10.5 fl (6.2-12.0); Platelet Count 510 K/mm3 (150-450); RBC Distribution Width CV 17.4 % (11.6-14.6); RBC Distribution Width SD 50.8 fl (35.1-43.9); Red Blood Count 3.96 M/mm3 (4.2-5.4); White Blood Count 8.3 K/mm3 (4.4-11.0)
[2025-04-16 08:54] LABS: Anion Gap 8 (5-15); BUN 18 mg/dL (4-19); BUN/Creat Ratio 25.2 RATIO (10-20); Calcium,Total 9.6 mg/dL (7.6-11.0); Carbon Dioxide 25.9 mmol/L (21.0-32.0); Chloride 106 mmol/L (98-108); Glucose 112 mg/dL (70-99); Potassium 4.7 mmol/L (3.3-5.1)
== END ==
LOC: OLS.WCC 05:00
PROVIDERS: PCP Family Medicine; Visit Provider Family Medicine
DX: I10 Essential (primary) hypertension (principal); D50.0 Iron deficiency anemia secondary to blood loss (chronic)
CPT/HCPCS: 36415; 80048; 85027